=== PATIENT | female | born 1955 | race Caucasian/White ===

== ENCOUNTER 2018-05-25 18:13 | Outpatient (REF) | payer BC, SELFPAY ==
[2018-05-25 21:08] LABS: HCT 39.2 % (36.0-46.0); HGB 13.2 g/dL (12.0-15.5); Mean Corp. HGB Concentration 33.7 g/dL (32.0-36.0); Mean Corpuscular Hemoglobin 31.4 pg (27.0-33.0); Mean Corpuscular Volume 93.3 fL (80-95); Mean Platelet Volume 11.6 fL (8.0-11.0); Platelet Count 287 x1000/uL (130-400); RBC Distribution Width 13.7 % (11.7-14.6); White Blood Cell Count 7.92 k/cumm (4.4-10.8)
[2018-05-25 21:36] LABS: Cholesterol 199 mg/dL (50-200); HDL Cholesterol 73 mg/dL (40-60); LDL CHOLESTEROL 113 mg/dL (<100); Triglyceride 55 mg/dL (30-150)
[2018-05-25 21:49] LABS: ESR 24 MM/HR (0-30)
[2018-05-25 21:51] LABS: C-Reactive Protein 0.31 mg/dL (0.0-0.3)
[2018-05-29 10:38] LABS: Cyclic Citrullinated Peptide <2.5 U/mL (<5.0)
== END 2018-05-25 18:33 ==
LOC: NCHCN 18:13
PROVIDERS: PCP Internal Medicine; Visit Provider Internal Medicine
DX: M25.541 Pain in joints of right hand (principal); M25.542 Pain in joints of left hand; Z00.00 Encounter for general adult medical examination without abnormal findings; Z13.220 Encounter for screening for lipoid disorders
CPT/HCPCS: 80061; 83721; 85027; 85652; 86200; 86140

== ENCOUNTER 2018-10-23 06:29 | Day surgery (SDC) | payer BC, SELFPAY ==
--- NOTE | 2018-10-19 16:06 | NUR.NOTE ---
Spoke with patient on the phone approximately 1520 in the afternoon, when asked is she has had any recent chest pain or pressure patient states after pausing Well, yes and no, I do but I think its related to my gerd. When asked what she was doing at the time she experienced the chest pain she states I don't know. I can't even tell you, I just remember thinking to myself I need to tell Dr. Yap about this. Pt expressed concern about being awake during cataract procedure due to history of being awake for a previous carpal tunnel surgery in 1977 when he cut the medial nerve. She states I just can't be awake. I told pt I would ask if an Anesthesia provider would be able to give her a call for two reasons: one, to assess her chest pain, and two to address her anxiety related to being awake for surgery. Note:
--- NOTE | 2018-10-22 19:05 | POEE_ITS ---
History of Present Illness Chief Complaint: Progressive decreased vision, right eye Narrative: The patient is a 63-year old lady with history of progressive decreased vision in both eyes at both distance and near. She notes a starburst effect around lights at night. She can no longer drive at night due to glare from headlights. On examination she was noted to have moderate bilateral nuclear cataracts with best corrected vision of 20/30 in each eye, but with significant glare disability. The option of cataract surgery was offered to the patient and she felt she was symptomatically at that she wished to proceed. NOTE: The Chief Complaint, HPI, Past Medical History, Past Surgical History, Family History, Social History, Medications, and complete Ophthalmic Exam with detailed Assessment and Plan have already been documented in the patient's outpatient ophthalmic record and are not covered again in detail here. PFSH Medical History Asthma, intermittent (Acute) Back pain (Acute) Depression with anxiety (Acute) Hearing loss in right ear (Acute) Intermittent palpitations (Acute) Pain in joints of left hand (Acute) Pain in joints of right hand (Acute) Strain of thoracic back region (Acute) Trigger finger of left thumb (Acute) Trigger finger, right index finger (Acute) Alcohol abuse (Chronic) Cataract (Chronic) Depression (Chronic) GERD (gastroesophageal reflux disease) (Chronic) Hypertension (Chronic) Osteoporosis (Chronic) Diabetes mellitus type 1 Surgical History History of carpal tunnel release (Acute) History of surgical removal of pilonidal cyst (Acute) History of section (Chronic) Family History Sister Personal history of malignant neoplasm Mother No problems noted. Father No problems noted. Sister No problems noted. Social History Smoking/Tobacco Use Status: Former Tobacco Use Alcohol Intake: former Drug use: Never Do you feel safe at home: Yes Do you feel safe in your relationship?: Yes Meds Home Medications Medication Instructions Recorded Confirmed Type acetaminophen [Acetaminophen Extra 1,000 mg PO .EVERY 8 HRS PRN 10/19/18 10/19/18 History Strength] albuterol sulfate [ProAir HFA] 1 INHALATION PRN PRN 10/19/18 History alendronate 70 mg PO QWEEK 10/19/18 10/19/18 History calcium carbonate 600 mg PO BID 10/19/18 10/19/18 History fluticasone propion-salmeterol 1 puff INHALATION BID 10/19/18 10/19/18 History [Advair Diskus] glucagon (human recombinant) PRN 10/19/18 History [Glucagon Emergency Kit (human)] ibuprofen 200 mg PO BID PRN 10/19/18 10/19/18 History insulin lispro [Humalog U-100 15 - 30 unit SUBCUT DAILY 10/19/18 10/19/18 History Insulin] lisinopril 20 mg PO DAILY 10/19/18 10/19/18 History magnesium 250 mg PO DAILY 10/19/18 10/19/18 History multivitamin [Multiple Vitamins] 1 tab PO DAILY 10/19/18 10/19/18 History Allergies Allergy/AdvReac Type Severity Reaction Status Date / Time naproxen Allergy Mild Unverified 05/30/17 20:33 Penicillins Allergy Unverified 05/30/17 20:33 prochlorperazine Allergy Unverified 05/30/17 20:33 Exam OCULAR EXAM:: Most recent ocular examination is significant for best corrected vision of 20/30 in each eye. Intraocular pressure is 14 OD, 15 OS. Extraocular motility is normal. Pupils equal, round, and reactive without afferent pupillary defect slit-lamp examination is significant for pupils dilating to 5.5 mm OU. 1+ nuclear cataract OU. Dilated funduscopic examination shows disc cupping of 0.4 OU with good color. The optic nerves have good perfusion and normal color. The retinal vasculature is normal without significant tortuosity or abnormality. The maculas are normal in appearance with normal contour and foveal reflex appropriate for age. The peripheral retina and vitreous are normal. BRIGHTNESS ACUITY TESTING (BAT):: Brightness acuity testing of the right eye office is 20/30. Low is 20/40. Medium is 20/50. On the high setting is 20/100. Assessment and Plan (1) Nuclear sclerotic cataract of right eye: Current visit: No Status: Acute Assessment: Visually significant cataract, right eye. Plan: Cataract extraction with intraocular lens implantation, right eye Note: NOTE:: The details of the planned surgery, including the risks, indica tions,limitations,expectations,outcome and possible complications were explained to the patient. The patient understands the complications including, but not limited to: infection, hemorrhage, posterior dislocation of the lens or nuclear fragments which may require the intervention of a vitreoretinal surgeon, possible loss of the eye, or from anesthetic complications. The patient has been made aware of the option of not having surgery, that vision following surgery may not be equal to that prior to surgery, and that the planned surgery may not achieve the intended results. Following this discussion, which the patient appeared to understand, the patient wishes to proceed with cataract surgery with lens implantation of the affected eye to improve and maximize vision.
[2018-10-23 06:54] VITALS: BP 139/66; PULSE 74; RESP 16; TEMP 36.6; O2SAT 100
[2018-10-23] MEDS: Tropicam./Phenyleph. (1/2.5%) 5 ML BTL OD ×3 (07:07→07:17)
[2018-10-23] MEDS: Tetracaine 0.5% 4 ML BTL OD ×4 (07:07→07:40)
[2018-10-23] MEDS: Balanced Salt Soln.-PLUS 500 ML BAG (07:40)
[2018-10-23] MEDS: Lidocaine 2% Jelly 6 ML SYR (07:40)
[2018-10-23] MEDS: Povidone-Iodine Ophth 30 ML BTL (07:40)
[2018-10-23] MEDS: Lidocaine 1% Pres-Free 5 ML VIAL (07:40)
[2018-10-23] MEDS: Duovisc Viscoelastic System EACH 1 EACH (07:40)
--- NOTE | 2018-10-23 08:02 | W.PM.DSUDISC ---
Discharge Plan Disposition Patient Disposition: HOME Condition: Stable Discharge Details Attending Provider: Humble Thrasher Primary Care Provider: Mitchell Yap Home Meds and New Rx's Prescriptions: No Action multivitamin [Multiple Vitamins] Tablet 1 tab PO DAILY RF: 0 ibuprofen 200 mg Capsule 200 mg PO BID PRNRF: 0 lisinopril 20 mg Tablet 20 mg PO DAILY RF: 0 alendronate 70 mg Tablet 70 mg PO QWEEK RF: 0 calcium carbonate 600 mg calcium (1,500 mg) Tablet 600 mg PO BID RF: 0 Glucagon Emergency Kit (human) 1 mg Recon Soln PRN (Reason: severe hypoglycemia) RF: 0 Humalog U-100 Insulin 100 unit/mL Solution 15 - 30 unit SUBCUT DAILY RF: 0 fluticasone propion-salmeterol [Advair Diskus] 100-50 mcg/dose Blister With Device 1 puff INHALATION BID RF: 0 albuterol sulfate [ProAir HFA] 90 mcg/actuation Hfa Aerosol Inhaler 1 Inhalation PRN PRNRF: 0 acetaminophen [Acetaminophen Extra Strength] 500 mg Tablet 1,000 mg PO .EVERY 8 HRS PRNRF: 0 magnesium 250 mg Tablet 250 mg PO DAILY RF: 0 Discharge Instructions Stand Alone Forms: Post-op Topical Cataract, Rosemarie Rick (DSU) DS: Diagnosis Discharge Diagnosis (1) Nuclear sclerotic cataract of right eye: Status: Resolved (2) Status post cataract extraction and insertion of intraocular lens of right eye: Status: Chronic
--- NOTE | 2018-10-23 08:03 | W.PM.OP ---
Date of service: 10/23/18 Time of Service: 08:04 Operative Note PRE-OP DIAGNOSIS: Cataract, right eye PROCEDURE: Cataract extraction using phacoemulsification with intraocular lens implant, right eye SURGEON: Humble Thrasher ANESTHESIA: MAC and local (sub-tenon's anesthetic infiltration) ESTIMATED BLOOD LOSS: 0 PATHOLOGY: none sent COMPLICATIONS: None Patient was transported to: same day Patient's condition: stable Implants: [employer] / [employer] Tecnis ZCB00 intraocular lens Indications: Progressive decreased vision due to cataract, right eye Procedure Description: CATARACT SURGERY OPERATIVE REPORT PREOPERATIVE DIAGNOSIS: Nuclear cataract, right eye POSTOPERATIVE DIAGNOSIS: Same OPERATION: Cataract extraction using phacoemulsification with posterior chamber intraocular lens implant, right eye. IOL: IOL Agency Sales Development Associate/Model: J&J Vision / UZAIR Tecnis ZCB00 IOL Power: + 26.0 diopters IOL Serial Number: [id number] Optic Diameter: 6.0mm Haptic/Overall Diameter: 13.0mm PHACO INFO: Jamil Indigeo Virtusurion Vision System with OZil and Active Fluidics Cumulative Dispersed Energy (CDE): 6.45 seconds SURGEON: Humble Thrasher MD, UZMA ANESTHESIA: Monitored Anesthesia Care (MAC), with local sub-tenon's anesthetic infiltration COMPLICATIONS: None SPECIMENS: None INDICATIONS FOR PROCEDURE: The patient is a 63-year-old lady with history of diminished visual acuity in both eyes secondary to the development of bilateral nuclear cataracts. She was significantly symptomatic that she desires cataract surgery and attempt to improve and maximize her vision. PROCEDURE: The correct surgical eye was identified and marked as the right eye and the pupil was dilated in the preoperative area using mydriatics and cycloplegics. The dilated pupil size was 6.5 mm. Oral sedation was administered in the form of an Imprimis MKO Melt (midazolam 3mg/ketamine 25mg/ondansetron 2mg). The patient was brought to the operating room where cardiopulmonary monitoring was instituted and surgical time-out was performed, confirming the correct operative eye and IOL power. Topical anesthesia was administered and ophthalmic povidone-iodine 5% was instilled into the conjunctival fornices. Lidocaine gel was applied to the cornea and the elizabeth-ocular area was prepped with Betadine 10% solution and draped in the usual sterile fashion for intraocular surgery, including an aperture drape. A Tegaderm transparent film dressing was cut in half and used to cover the lashes and lid margins. Care was taken to sequester the lashes and lid margins under the Tegaderm dressing. A lid speculum was placed between the lids of the operative eye and the Zurdo-Bel operating microscope was maneuvered into position. Jacoby scissors were then used to make a conjunctival buttonhole approximately 6mm posterior to the limbus in the inferonasal quadrant. Blunt dissection was carried out to expose bare sclera, and a blunt-tipped sub-tenon?s anesthesia cannula was introduced and passed posteriorly along the globe where non-preserved plain lidocaine was injected into posterior sub-Tenon?s space. A sideport knife was used to make a paracentesis port inferiortemporally, and the anterior chamber was filled with Viscoat. A 2.4mm keratome knife was used to create a half-thickness groove at the limbus and then to construct a three-plane near-clear corneal tunnel extending 2.0mm into clear cornea in the superiortemporal position. . A flap was raised on the anterior capsule and capsulorhexis forceps were used to complete a continuous curvilinear capsulorhexis of 5.0 mm. Balanced salt solution was then used to perform cortical cleaving hydrodissection and nuclear hydrodelineation until the lens could be freely rotated within the capsular bag. The lens nucleus was then disassembled and removed within the capsular bag and iris plane using phacoemulsification. Residual cortical material was removed using the I/A handpiece. The posterior capsule was carefully polished to remove as much residual lens epithelial cells as safely possible. The capsular bag was then inflated and the anterior chamber deepened with Provisc. The lens implant described above was inserted into the capsular bag using the UZAIR [place] Injector. A Kuglen hook was used to dial the IOL into position. Residual viscoelastic was then removed first from posterior to the IOL, then from the anterior chamber using the I/A handpiece. The lens implant was noted to center nicely within the capsular bag. The incisions were stromally hydrated, and the anterior chamber was reformed using BSS. Then 0.4cc of moxifloxacin 1.5mg/ml were injected into the capsular bag and anterior chamber. The incisions were checked with a Weck spear and found to be secure. Several drops of ophthalmic povidone-iodine 5% were then applied to the eye followed by two drops of Imprimis combination gatifloxacin/dexamethasone solution. The drapes were removed and a clear plastic protective eye shield was placed over the eye. The patient was then returned to Same Day Surgery in stable condition.
--- NOTE | 2018-10-23 08:06 | ROE_ITS ---
Date of service: 10/23/18 Time of Service: 08:04 Operative Note PRE-OP DIAGNOSIS: Cataract, right eye PROCEDURE: Cataract extraction using phacoemulsification with intraocular lens implant, right eye SURGEON: Humble Thrasher ANESTHESIA: MAC and local (sub-tenon's anesthetic infiltration) ESTIMATED BLOOD LOSS: 0 PATHOLOGY: none sent COMPLICATIONS: None Patient was transported to: same day Patient's condition: stable Implants: Osman [employer] Os[employer] Vision / [employer] Opt[employer] Tecnis ZCB00 intraocular lens Indications: Progressive decreased vision due to cataract, right eye Procedure Description: CATARACT SURGERY OPERATIVE REPORT PREOPERATIVE DIAGNOSIS: Nuclear cataract, right eye POSTOPERATIVE DIAGNOSIS: Same OPERATION: Cataract extraction using phacoemulsification with posterior chamber intraocular lens implant, right eye. IOL: IOL Media Relations Associate/Model: J&J Vision / UZAIR Tecnis ZCB00 IOL Power: + 26.0 diopters IOL Serial Number: [id number] Optic Diameter: 6.0mm Haptic/Overall Diameter: 13.0mm PHACO INFO: Jamil ePod Solarurion Vision System with OZil and Active Fluidics Cumulative Dispersed Energy (CDE): 6.45 seconds SURGEON: Humble Thrasher MD, UZMA ANESTHESIA: Monitored Anesthesia Care (MAC), with local sub-tenon's anesthetic infiltration COMPLICATIONS: None SPECIMENS: None INDICATIONS FOR PROCEDURE: The patient is a 63-year-old lady with history of diminished visual acuity in both eyes secondary to the development of bilateral nuclear cataracts. She was significantly symptomatic that she desires cataract surgery and attempt to improve and maximize her vision. PROCEDURE: The correct surgical eye was identified and marked as the right eye and the pupil was dilated in the preoperative area using mydriatics and cycloplegics. The dilated pupil size was 6.5 mm. Oral sedation was administered in the form of an Imprimis MKO Melt (midazolam 3mg/ketamine 25mg/ondansetron 2mg). The patient was brought to the operating room where cardiopulmonary monitoring was instituted and surgical time-out was performed, confirming the correct operative eye and IOL power. Topical anesthesia was administered and ophthalmic povidone-iodine 5% was instilled into the conjunctival fornices. Lidocaine gel was applied to the cornea and the elizabeth-ocular area was prepped with Betadine 10% solution and draped in the usual sterile fashion for intraocular surgery, including an aperture drape. A Tegaderm transparent film dressing was cut in half and used to cover the lashes and lid margins. Care was taken to sequester the lashes and lid margins under the Tegaderm dressing. A lid speculum was placed between the lids of the operative eye and the Zurdo-Bel operating microscope was [place] uvered into position. Jacoby scissors were then used to make a conjunctival buttonhole approximately 6mm posterior to the limbus in the inferonasal quadrant. Blunt dissection was carried out to expose bare sclera, and a blunt-tipped sub-tenon?s anesthesia cannula was introduced and passed posteriorly along the globe where non- preserved plain lidocaine was injected into posterior sub-Tenon?s space. A sideport knife was used to make a paracentesis port inferiortemporally, and the anterior chamber was filled with Viscoat. A 2.4mm keratome knife was used to create a half-thickness groove at the limbus and then to construct a three-plane near-clear corneal tunnel extending 2.0mm into clear cornea in the superiortemporal position. . A flap was raised on the anterior capsule and capsulorhexis forceps were used to complete a continuous curvilinear capsulorhexis of 5.0 mm. Balanced salt solution was then used to perform cortical cleaving hydrodissection and nuclear hydrodelineation until the lens could be freely rotated within the capsular bag. The lens nucleus was then disassembled and removed within the capsular bag and iris plane using phacoemulsification. Residual cortical material was removed using the I/A handpiece. The posterior capsule was carefully polished to remove as much residual lens epithelial cells as safely possible. The capsular bag was then inflated and the anterior chamber deepened with Provisc. The lens implant described above was inserted into the capsular bag using the UZAIR [place] Injector. A Kuglen hook was used to dial the IOL into position. Residual viscoelastic was then removed first from posterior to the IOL, then from the anterior chamber using the I/A handpiece. The lens implant was noted to center nicely within the capsular bag. The incisions were stromally hydrated, and the anterior chamber was reformed using BSS. Then 0.4cc of moxifloxacin 1.5mg/ml were injected into the capsular bag and anterior chamber. The incisions were checked with a Weck spear and found to be secure. Several drops of ophthalmic povidone-iodine 5% were then applied to the eye followed by two drops of Imprimis combination gatifloxacin/dexamethasone solution. The drapes were removed and a clear plastic protective eye shield was placed over the eye. The patient was then returned to Same Day Surgery in stable condition.
[2018-10-23 08:35] VITALS: BP 123/68; PULSE 75; RESP 16; TEMP 37; O2SAT 98
== END 2018-10-23 08:40 | disposition home or self-care (01) ==
PROVIDERS: PCP Internal Medicine; Visit Provider Ophthalmology
PROC: (CPT 66984; principal; 2018-10-23 07:30)
DX: H25.11 Age-related nuclear cataract, right eye (principal); E11.9 Type 2 diabetes mellitus without complications; Z79.4 Long term (current) use of insulin; K21.9 Gastro-esophageal reflux disease without esophagitis; I10 Essential (primary) hypertension
CPT/HCPCS: 66984; V2632

== ENCOUNTER 2018-11-06 06:31 | Day surgery (SDC) | payer BC, SELFPAY ==
--- NOTE | 2018-11-05 17:18 | POEE_ITS ---
History of Present Illness Chief Complaint: Progressive decreased vision, left eye Narrative: The patient is a 63-year-old lady who presented with complaints of progressive decreased vision in both eyes at both distance and near. She notes significant difficulty with glare from headlights at night. On examination she was noted to have bilateral nuclear cataract, and underwent cataract surgery OD on 10/23/2018. Postoperatively she has regained uncorrected visual acuity of better than 20/20. She now presents for cataract surgery in the left eye. NOTE: The Chief Complaint, HPI, Past Medical History, Past Surgical History, Family History, Social History, Medications, and complete Ophthalmic Exam with detailed Assessment and Plan have already been documented in the patient's outpatient ophthalmic record and are not covered again in detail here. [facility] Medical History Asthma, intermittent (Acute) Back pain (Acute) Depression with anxiety (Acute) Hearing loss in right ear (Acute) Intermittent palpitations (Acute) Pain in joints of left hand (Acute) Pain in joints of right hand (Acute) Strain of thoracic back region (Acute) Trigger finger of left thumb (Acute) Trigger finger, right index finger (Acute) Alcohol abuse (Chronic) Cataract (Chronic) Depression (Chronic) GERD (gastroesophageal reflux disease) (Chronic) Hypertension (Chronic) Osteoporosis (Chronic) Diabetes mellitus type 1 Surgical History Status post cataract extraction and insertion of intraocular lens of right eye (Chronic 10/23/18) History of carpal tunnel release (Acute) History of surgical removal of pilonidal cyst (Acute) History of section (Chronic) Family History Sister Personal history of malignant neoplasm Mother No problems noted. Father No problems noted. Sister No problems noted. Social History Smoking/Tobacco Use Status: Former Tobacco Use Quit Date: 06/27/77 Alcohol Intake: former Drug use: Never Do you feel safe at home: Yes Do you feel safe in your relationship?: Yes Meds Home Medications Medication Instructions Recorded Confirmed Type acetaminophen [Acetaminophen Extra 1,000 mg PO .EVERY 8 HRS PRN 10/19/18 10/23/18 History Strength] albuterol sulfate [ProAir HFA] 1 INHALATION PRN PRN 10/19/18 History alendronate 70 mg PO QWEEK 10/19/18 10/23/18 History calcium carbonate 600 mg PO BID 10/19/18 10/23/18 History fluticasone propion-salmeterol 1 puff INHALATION BID 10/19/18 10/23/18 History [Advair Diskus] glucagon (human recombinant) PRN 10/19/18 History [Glucagon Emergency Kit (human)] ibuprofen 200 mg PO BID PRN 10/19/18 10/19/18 History insulin lispro [Humalog U-100 15 - 30 unit SUBCUT DAILY 10/19/18 10/23/18 History Insulin] lisinopril 20 mg PO DAILY 10/19/18 10/23/18 History magnesium 250 mg PO DAILY 10/19/18 10/23/18 History multivitamin [Multiple Vitamins] 1 tab PO DAILY 10/19/18 10/23/18 History Allergies Allergy/AdvReac Type Severity Reaction Status Date / Time naproxen Allergy Mild Unverified 10/23/18 06:45 Penicillins Allergy Unverified 10/23/18 06:45 prochlorperazine Allergy Unverified 10/23/18 06:45 Exam OCULAR EXAM:: Most recent ocular examination is significant for uncorrected visual acuity of 20/15 in the right eye, corrected visual acuity of 20/30 in the left eye. Intraocular pressure is 16 OD, 15 OS. Extraocular motility is normal pupils equal, round, and reactive without afferent pupillary defect slit lamp examination is significant for pupils dilating to 5.5 mm OU. Well-positioned PCIOL OD with clear posterior capsule. 1+ nuclear cataract OS. Dilated funduscopic examination shows disc cupping of 0.4 OU with good color. The optic nerves have good perfusion and normal color. The retinal vasculature is normal without significant tortuosity or abnormality. The maculas are normal in appearance with normal contour and foveal reflex appropriate for age. The peripheral retina and vitreous are normal. BRIGHTNESS ACUITY TESTING (BAT):: Brightness acuity testing of the left eye office is 20/30. Low is 20/40. Medium is 20/50. On the high setting is 20/60. Assessment and Plan (1) Nuclear sclerotic cataract of left eye: Current visit: No Status: Acute Assessment: Visually significant cataract, left eye. Plan: Cataract extraction with intraocular lens implantation, left eye Note: NOTE:: The details of the planned surgery, including the risks, indications,limitations,expectations,outcome and possible complications were explained to the patient. The patient understands the complications including, but not limited to: infection, hemorrhage, posterior dislocation of the lens or nuclear fragments which may require the intervention of a vitreoretinal surgeon, possible loss of the eye, or from anesthetic complications. The patient has been made aware of the option of not having surgery, that vision following surgery may not be equal to that prior to surgery, and that the planned surgery may not achieve the intended results. Following this discussion, which the patient appeared to understand, the patient wishes to proceed with cataract surgery with lens implantation of the affected eye to improve and maximize vision.
[2018-11-06 06:48] VITALS: BP 106/53; PULSE 74; RESP 16; TEMP 36.1; O2SAT 100
[2018-11-06] MEDS: Tetracaine 0.5% 4 ML BTL OS ×4 (07:00→07:31)
[2018-11-06] MEDS: Tropicam./Phenyleph. (1/2.5%) 5 ML BTL OS ×3 (07:01→07:12)
--- NOTE | 2018-11-06 07:16 | W.PM.DSUDISC ---
Discharge Plan Disposition Patient Disposition: HOME Condition: Stable Discharge Details Attending Provider: Humble Thrasher Primary Care Provider: Mitchell Yap Home Meds and New Rx's Prescriptions: No Action multivitamin [Multiple Vitamins] Tablet 1 tab PO DAILY RF: 0 ibuprofen 200 mg Capsule 200 mg PO BID PRNRF: 0 lisinopril 20 mg Tablet 20 mg PO DAILY RF: 0 alendronate 70 mg Tablet 70 mg PO QWEEK RF: 0 calcium carbonate 600 mg calcium (1,500 mg) Tablet 600 mg PO BID RF: 0 Glucagon Emergency Kit (human) 1 mg Recon Soln PRN (Reason: severe hypoglycemia) RF: 0 Humalog U-100 Insulin 100 unit/mL Solution 15 - 30 unit SUBCUT DAILY RF: 0 fluticasone propion-salmeterol [Advair Diskus] 100-50 mcg/dose Blister With Device 1 puff INHALATION BID RF: 0 albuterol sulfate [ProAir HFA] 90 mcg/actuation Hfa Aerosol Inhaler 1 Inhalation PRN PRNRF: 0 acetaminophen [Acetaminophen Extra Strength] 500 mg Tablet 1,000 mg PO .EVERY 8 HRS PRNRF: 0 magnesium 250 mg Tablet 250 mg PO DAILY RF: 0 Discharge Instructions Stand Alone Forms: Post-op Topical Cataract, Rosemarie Rick (DSU) DS: Diagnosis Discharge Diagnosis (1) Nuclear sclerotic cataract of left eye: Status: Resolved (2) Status post cataract extraction and insertion of intraocular lens of left eye: Status: Chronic
--- NOTE | 2018-11-06 07:17 | ROE_ITS ---
Date of service: 11/06/18 Time of Service: 08:02 Operative Note PRE-OP DIAGNOSIS: Cataract, left eye POST-OP DIAGNOSIS: same PROCEDURE: Cataract extraction using phacoemulsification with intraocular lens implant, left eye SURGEON: Humble Thrasher ANESTHESIA: MAC and local (sub-tenon's anesthetic infiltration) PATHOLOGY: none sent COMPLICATIONS: None Patient was transported to: same day Patient's condition: stable Implants: [employer] / [employer] Tecnis [id number] Indications: Progressive decreased vision due to cataract, left eye Procedure Description: CATARACT SURGERY OPERATIVE REPORT PREOPERATIVE DIAGNOSIS: Nuclear cataract, left eye POSTOPERATIVE DIAGNOSIS: Same OPERATION: Cataract extraction using phacoemulsification with posterior chamber intraocular lens implant, left eye. IOL: IOL Treating Machine Operator/Model: [employer] / UZAIR Tecnis ZCB00 IOL Power: + 25.5 diopters IOL Serial Number: [id number] Optic Diameter: 6.0mm Haptic/Overall Diameter: 13.0mm PHACO INFO: Jamil BTIGurion Vision System with OZil and Active [employer]uidics Cumulative Dispersed Energy (CDE): 5.35 seconds SURGEON: Humble Thrasher MD, UZMA ANESTHESIA: Monitored Anesthesia Care (MAC), with local sub-tenon's anesthetic infiltration COMPLICATIONS: None SPECIMENS: None INDICATIONS FOR PROCEDURE: The patient is a 63-year-old lady with history of diminished visual acuity in both eyes secondary to the development of bilateral nuclear cataracts. She has already undergone cataract surgery in her right eye on 10/23/2018 and is doing well postoperatively. She now presents for cataract surgery in the left eye. PROCEDURE: The correct surgical eye was identified and marked as the left eye and the pupil was dilated in the preoperative area using mydriatics and cycloplegics. The dilated pupil size was 6.0 mm. Oral sedation was administered in the form of an Imprimis MKO Melt (midazolam 3mg/ketamine 25mg/ondansetron 2mg). The patient was brought to the operating room where cardiopulmonary monitoring was instituted and surgical time-out was performed, confirming the correct operative eye and IOL power. Topical anesthesia was administered and ophthalmic povidone-iodine 5% was instilled into the conjunctival fornices. Lidocaine gel was applied to the cornea and the elizabeth-ocular area was prepped with Betadine 10% solution and draped in the usual sterile fashion for intraocular surgery, including an aperture drape. A Tegaderm transparent film dressing was cut in half and used to cover the lashes and lid margins. Care was taken to sequester the lashes and lid margins under the Tegaderm dressing. A lid speculum was placed between the lids of the operative eye and the Zurdo-Bel operating microscope was maneuvered into position. Jacoby scissors were then used to make a conjunctival buttonhole approximately 6mm posterior to the limbus in the inferonasal quadrant. Blunt dissection was carried out to expose bare sclera, and a blunt-tipped sub-tenon?s anesthesia cannula was introduced and passed posteriorly along the globe where non- preserved plain lidocaine was injected into posterior sub-Tenon?s space. A sideport knife was used to make a paracentesis port superior/superiortemporal, and the anterior chamber was filled with Healon GV. A 2.4mm keratome knife was used to create a half-thickness groove at the limbus and then to construct a three-plane near-clear corneal tunnel extending 2.0mm into clear cornea in the temporal position. . A flap was raised on the anterior capsule and capsulorhexis forceps were used to complete a continuous curvilinear capsulorhexis of 4.8 mm. Balanced salt solution was then used to perform cortical cleaving hydrodissectio n and nuclear hydrodelineation until the lens could be freely rotated within the capsular bag. The lens nucleus was then disassembled and removed within the capsular bag and iris plane using phacoemulsification. Residual cortical material was removed using the 45-degree angled silicone I/A tip with 0.3mm port. The posterior capsule was carefully polished to remove as much residual lens epithelial cells as safely possible. The capsular bag was then inflated and the anterior chamber deepened with viscoelastic. The lens implant described above was inserted into the capsular bag using the UZAIR Pacolet Injector. A Kuglen hook was used to dial the IOL into position. Residual viscoelastic was then removed first from posterior to the IOL, then from the anterior chamber using the I/A handpiece. The lens implant was noted to center nicely within the capsular bag. The incisions were stromally hydrated, and the anterior chamber was reformed using BSS. Then 0.4cc of moxifloxacin 1.5mg/ml were injected into the capsular bag and anterior chamber. The incisions were checked with a Weck spear and found to be secure. Several drops of ophthalmic povidone-iodine 5% were then applied to the eye followed by two drops of Imprimis combination prednisolone/gatifloxacin/bromfenac solution. The drapes were removed and a clear plastic protective eye shield was placed over the eye. The patient was then returned to [facility] in stable condition.
[2018-11-06] MEDS: Midazolam/Ketamine/Ondansetron (3/25/2MG) 1 TAB 1 EACH SL (07:25)
[2018-11-06] MEDS: Lidocaine 2% Jelly 6 ML SYR (07:31)
[2018-11-06] MEDS: Povidone-Iodine Ophth 30 ML BTL ×2 (07:31→07:57)
[2018-11-06] MEDS: Balanced Salt Soln.-PLUS 500 ML BAG (07:39)
[2018-11-06] MEDS: Lidocaine 1% Pres-Free 5 ML VIAL (07:39)
[2018-11-06 08:45] VITALS: BP 120/75; PULSE 71; RESP 16; TEMP 37; O2SAT 100
== END 2018-11-06 08:50 | disposition home or self-care (01) ==
PROVIDERS: PCP Internal Medicine; Visit Provider Ophthalmology
PROC: (CPT 66984; principal; 2018-11-06 07:30)
DX: H25.12 Age-related nuclear cataract, left eye (principal); Z98.41 Cataract extraction status, right eye; Z96.1 Presence of intraocular lens; E11.9 Type 2 diabetes mellitus without complications; Z79.4 Long term (current) use of insulin; K21.9 Gastro-esophageal reflux disease without esophagitis; I10 Essential (primary) hypertension
CPT/HCPCS: 66984; V2632

== ENCOUNTER 2019-02-02 02:22 | Outpatient (CLI) | payer BC, SELFPAY ==
--- NOTE | 2019-02-02 10:13 | DI.MAMMO_ITS ---
SYMPTOM/DIAGNOSIS: SCREENING, PREVENTIVE HEALTH, Z00.00 MAMMOGRAMS: Mammograms were interpreted according to the usual protocol including computer analysis with CAD system, tomosynthesis and C view imaging. The breasts are of moderate density with fairly symmetrical distribution of fibroglandular tissue. No dominant mass or clumped microcalcification is identified in either breast. The current examination is compared with previous examinations including 03/2017 and there has been no gross interval change in appearance in comparison with the previous studies. CONCLUSION: No specific evidence of malignancy at this time. Routine screening examinations are suggested at yearly intervals due to the family history of breast carcinoma. Category 1. Breast density, Category B. MQSA ASSESSMENT OF FINDINGS: Negative. Category 1. Patient will receive a letter notifying them of these results. BI-RADS category B. There are scattered areas of fibroglandular density.
--- NOTE | 2019-02-02 10:39 | DI.RAD_ITS ---
SYMPTOMS/DIAGNOSIS: THORACIC BACK PAIN, M54.9 THORACIC SPINE: Three views were obtained. There is loss of the intervertebral disc spaces throughout the thoracic region. There is a mild anterior compression fracture of what appears to be the T 9 vertebral body. No other compression fracture seen. Comparison with previous shoulder films of 11/10/17 shows this fracture was present at that time. No acute fracture seen. Multi-level endplate hypertrophic changes noted throughout the thoracic spine. CONCLUSION: Thoracic spine DJD and old T 9 compression fracture.
== END 2019-02-02 02:42 ==
PROVIDERS: PCP Internal Medicine; Visit Provider Specialist/Technologist Athletic Trainer
DX: M51.34 Other intervertebral disc degeneration, thoracic region (principal); Z12.31 Encounter for screening mammogram for malignant neoplasm of breast
CPT/HCPCS: 77063; 77067; 72072

== ENCOUNTER 2019-03-05 15:04 | Outpatient (REF) | payer BC, SELFPAY ==
[2019-03-05 22:22] LABS: Bacteria Negative HPF (Negative); Crystals Moderate Amorphous HPF (Negative); Epithelial Cells Negative HPF (Negative); Mucus Negative (Negative); Other Cells Negative (Negative); RBC Negative (0-2); WBC 0-2 HPF (0-5)
[2019-03-05 22:23] LABS: C & S Indicated? No; Casts Negative LPF (Negative)
== END 2019-03-05 15:24 ==
LOC: NCHCN 15:04
PROVIDERS: PCP Internal Medicine; Visit Provider Specialist/Technologist Athletic Trainer
DX: R35.0 Frequency of micturition (principal)
CPT/HCPCS: 81015

== ENCOUNTER 2019-03-09 01:28 | Outpatient (CLI) | payer BC, SELFPAY ==
--- NOTE | 2019-03-09 10:37 | DI.US_ITS ---
SYMPTOM/DIAGNOSIS: FLANK PAIN R10.9 RENAL ULTRASOUND: The kidneys are normal in size and echogenicity and show normal parenchymal thickness. There is no evidence of hydronephrosis, stone or perinephric collection. The pre-void bladder volume measures 101 cc. Both ureteral jets were visualized. No bladder mass or bladder calculi are seen. There is a 6 cc post void residual. IMPRESSION: Negative renal ultrasound.
== END 2019-03-09 01:48 ==
PROVIDERS: PCP Internal Medicine; Visit Provider Specialist/Technologist Athletic Trainer
DX: R10.84 Generalized abdominal pain (principal)
CPT/HCPCS: 76770

== ENCOUNTER 2019-05-15 01:41 | Outpatient (RCR) | payer BC, SELFPAY ==
[2019-05-15] MEDS: Normal Saline Flush 10 ML SYR IVP (13:08)
== END 2019-05-26 23:59 | disposition home or self-care (01) ==
LOC: INF 01:41
PROVIDERS: PCP Internal Medicine; Visit Provider Internal Medicine
DX: M81.0 Age-related osteoporosis without current pathological fracture (principal)
CPT/HCPCS: 96365; J3489

== ENCOUNTER 2019-09-03 00:44 | Outpatient (CLI) | payer MEDICAID, SELFPAY ==
--- NOTE | 2019-09-03 11:10 | DI.CT_ITS ---
EXAM: CT ABDOMEN PELVIS WO CLINICAL HISTORY: R/O STONES, FLANK PAIN, CALCIUM OXALATE CRYSTALS PRESENT IN URINE, R10.9, R82.998. TECHNIQUE: Imaging Protocol: Axial computed tomography images with coronal and sagittal reformatted images were created and reviewed. COMPARISON: No exams were available for comparison FINDINGS: ABDOMEN: Lung Bases: Normal where visualized. Liver: Normal density. No measurable mass. Gallbladder and biliary tract: No radiodense calculus or dilation. Pancreas: Normal density, no abnormal calcifications or inflammatory process. Spleen: Normal. Kidneys: Normal size, contour and axis. No radiodense stones or obstructive uropathy. No masses seen. Adrenal glands: No masses seen. Lymph nodes: Within normal limits. Abdominal Aorta: Abdominal portion non-dilated. Mild atherosclerosis. PELVIS: Bladder: Incompletely distended. No gross abnormality is identified. Bowel: No obstruction or bowel wall thickening. No evidence of an acute appendicitis. Peritoneal cavity: No ascites, collection or mesenteric inflammatory response. Reproductive organs: Within normal limits. Bones: Mild degenerative changes in the spine IMPRESSION: No evidence of nephrolithiasis or hydronephrosis. DATA REPOSITORY: All CT scans at this facility are submitted to the National Radiology Data Registry (NRDR) Dose Index Registry (DIR) with the [employer] (ACR). RADIATION OPTIMIZATION: All CT scans at this facility use at least one of these dose optimization te chniques: automated exposure control; mA and/or kV adjustment per patient size (includes targeted exa ms where dose is matched to clinical indication); or iterative reconstruction.
== END 2019-09-03 01:04 ==
PROVIDERS: PCP Internal Medicine; Visit Provider Urology
DX: R10.31 Right lower quadrant pain (principal); R82.998 Other abnormal findings in urine
CPT/HCPCS: 74176

== ENCOUNTER 2019-09-27 09:53 | Outpatient (CLI) | payer MEDICAID, SELFPAY ==
[2019-09-30 02:51] LABS: SARS-CoV-2 RNA Undetected (Undetected); SARS-CoV-2 Specimen Source Nasopharynx
== END 2019-09-27 10:13 ==
PROVIDERS: PCP Internal Medicine; Visit Provider Internal Medicine
DX: Z11.59 Encounter for screening for other viral diseases (principal)
CPT/HCPCS: U0003

== ENCOUNTER 2019-11-26 13:17 | Outpatient (REF) | payer MEDICAID, SELFPAY ==
[2019-11-26 20:38] LABS: HCT 38.8 % (36.0-46.0); HGB 12.7 g/dL (12.0-15.5); Mean Corp. HGB Concentration 32.7 g/dL (32.0-36.0); Mean Corpuscular Hemoglobin 30.3 pg (27.0-33.0); Mean Corpuscular Volume 92.6 fL (80-95); Mean Platelet Volume 11.1 fL (8.0-11.0); Platelet Count 295 x1000/uL (130-400); RBC 4.19 m/cumm (4.00-5.20); RBC Distribution Width 12.8 % (11.7-14.6); White Blood Cell Count 5.33 k/cumm (4.4-10.8)
[2019-11-26 21:45] LABS: ALT 35 U/L (14-59); AST 26 U/L (15-37); Albumin 3.5 g/dL (3.4-5.0); Alkaline Phosphatase 101 U/L (46-116); Anion Gap 4.3 mmol/L (3-11); BUN 21 mg/dL (7-18); Bilirubin, Total 0.3 mg/dL (0.2-1.0); CO2 30.7 mmol/L (21.0-32.0); CREATININE 0.92 mg/dL (0.55-1.02); Calcium 8.8 mg/dL (8.5-10.1); Chloride 106 mmol/L (98-107); Glucose 214 mg/dL (74-106); Potassium 4.5 mmol/L (3.5-5.1); Sodium 141 mmol/L (136-145); Total Protein 6.1 g/dL (6.4-8.2)
[2019-11-26 22:07] LABS: NT-proBNP 101 pg/mL (<300)
== END 2019-11-26 13:37 ==
LOC: NCHCN 13:17
PROVIDERS: PCP Internal Medicine; Visit Provider Family Medicine
DX: R06.02 Shortness of breath (principal)
CPT/HCPCS: 80053; 85027; 83880

== ENCOUNTER 2019-12-17 00:29 | Outpatient (CLI) | payer MEDICAID, SELFPAY ==
--- NOTE | 2019-12-17 08:00 | ETT_ITS ---
APPROVED REPORT Exam: Exercise Treadmill Patient Location: Out-Patient Room/Bed: Stress Nurse: Valeria Diaz RN BMI: 0.00 Baseline Rhythm: Sinus Rhythm Indications: Exertional dyspnea. Medical History Medical History: Diabetic ??? Insulin, HTN Cardiac Medications: Lisinopril. Aspirin. Magnesium. Advair. Humalog Insulin., Allergies: Penicillins. Naproxen. Compazine. Cardiac Risk Factors: HTN, Diabetes (insulin), FHX of CAD. Former smoker. Exercise History: Physically active Lung Sounds: Clear to auscultation Heart Sounds: Regular Stress Test Details Test: Exercise stress testing was performed using a Frank protocol. Rest Stress HR Resting HR Supine: 70 bpm Resting HR Standin bpm Max HR Achieved: 130 bpm Recovery HR: 94 bpm HR response to stress: Normal HR response to stress BP Resting BP Supine: 128/66 mmHg Resting BP Standin/62 mmHg Max BP: 170/56 mmHg Recovery BP: 130/62 mmHg BP response to stress: Normal blood pressure response to stress. ECG Resting ECG: Sinus Rhythm Stress ECG: Sinus Tachycardia ST Change: No significant ST segment changes Arrhythmia: None Recovery ECG: Sinus Rhythm Recovery ST Change: No siginificant ST segment changes Recovery Arrhythmia: None Clinical Reason for Termination: Fatigue Stress Symptoms: Leg Fatigue Exercise duration: 7 min30 sec Highest Stage Reached: Stage 3: 3.4 mph at 14% grade. Exercise capacity: 9.36 METs Functional Capacity: Above average capacity Stress ECG Conclusion 1. The patient exercised for 7 minutes 30 seconds (9 METS). Rate-pressure product was 22,000 2. There were no symptoms suggestive of ischemia during stress. Exercise was stopped due to leg fati lizeth. 3. The Sam Score ( 7) estimates an annual cardiovascular mortality of 0% and a five year survival of 95%. Using the Sam Score there is a low probability of any angiographic coronary disease.
== END 2019-12-17 00:49 ==
PROVIDERS: PCP Internal Medicine; Visit Provider Family Medicine
DX: R06.09 Other forms of dyspnea (principal); I10 Essential (primary) hypertension; E11.9 Type 2 diabetes mellitus without complications; Z79.4 Long term (current) use of insulin; Z87.891 Personal history of nicotine dependence; Z82.49 Family history of ischemic heart disease and other diseases of the circulatory system
CPT/HCPCS: 93017

== ENCOUNTER 2020-05-12 00:44 | Outpatient (RCR) | payer MEDICAID, SELFPAY ==
[2020-05-12] MEDS: Normal Saline Flush 10 ML SYR IVP (13:36)
== END 2020-05-26 23:59 | disposition home or self-care (01) ==
LOC: INF 00:44
PROVIDERS: PCP Internal Medicine; Visit Provider Internal Medicine
DX: M81.0 Age-related osteoporosis without current pathological fracture (principal)
CPT/HCPCS: 96365; J3489

== ENCOUNTER 2020-07-25 01:44 | Outpatient (CLI) | payer MEDICAID, SELFPAY ==
[2020-07-28 15:29] LABS: ANA Interpretation Negative (Negative)
[2020-07-29 16:15] LABS: Centromere Ab, IgG <0.2 U (<1.0 (Neg)); Scl 70 Antibodies, IgG <0.2 U
[2020-07-29 16:16] LABS: RNP Ab, IgG 1.7 Units (<20.0)
== END 2020-07-25 02:04 ==
PROVIDERS: PCP Internal Medicine; Visit Provider Internal Medicine
DX: I73.00 Raynaud's syndrome without gangrene (principal); R13.13 Dysphagia, pharyngeal phase; L98.8 Other specified disorders of the skin and subcutaneous tissue
CPT/HCPCS: 36415; 83520; 86038; 86235

== ENCOUNTER 2020-09-22 02:35 | Outpatient (CLI) | payer MEDICAID, SELFPAY ==
--- NOTE | 2020-09-22 09:39 | DI.RAD_ITS ---
EXAM: RF BARIUM SWALLOW CLINICAL HISTORY: DYSPHAGIA PHARYNGEAL PHASE,R13.13 TECHNIQUE: 2D and realtime digital imaging was performed. CONTRAST MATERIAL: Oral barium Oral water soluble contrast was administered. COMPARISON: CR XR thoracic spine complete from 02/02/2019 FINDINGS: ESOPHAGRAM: Performed both standing and recumbent. Swallowing appears grossly intact and there was no aspiration evident. No obvious hypertense upper e sophageal sphincter evident. No evidence of Zenker's diverticulum. There no obvious fixed lesions in the esophagus. The GE junction appears unremarkable. No evidence for hiatal hernia. No Schatzki ring demonstrated. No evidence of diverticulum in the distal esophag us. No prominent reflux demonstrated. No evidence of achalasia. Additional images of the stomach appeared unremarkable as does the duodenal sweep. IMPRESSION: No significant radiograph findings evident on this esophagram study. If clinically indicated further study with modified barium swallow performed with the [place] Free Classifiedsis t can be performed. Also given her symptoms one might consider thyroid ultrasound examination. RADIATION DOSE DELIVERED:
[2020-09-22] MEDS: Simethicone/Sod Bicarb/Cit Ac, 4 gram PACKET 1 PACKET PO (09:41)
[2020-09-22] MEDS: Barium Sulfate 60% W/V 355 ML BTL PO (09:41)
== END 2020-09-22 02:55 ==
PROVIDERS: PCP Internal Medicine; Visit Provider Internal Medicine
DX: R13.13 Dysphagia, pharyngeal phase (principal)
CPT/HCPCS: 74221; J3490

== ENCOUNTER 2020-11-19 07:48 | Outpatient (REF) | payer MEDICAID, SELFPAY | END 2020-11-19 07:49 | disposition home or self-care (01) | LOC: NCHCN 07:48 | PROVIDERS: PCP Internal Medicine; Visit Provider Family Medicine | DX: R30.0 Dysuria (principal) | CPT/HCPCS: 87086 ==

== ENCOUNTER 2020-12-15 18:33 | Outpatient (REF) | payer MEDICAID, SELFPAY | END 2020-12-15 18:34 | disposition home or self-care (01) | LOC: NCHCN 18:33 | PROVIDERS: PCP Internal Medicine; Visit Provider Family Medicine | DX: R30.0 Dysuria (principal); R32 Unspecified urinary incontinence | CPT/HCPCS: 87086 ==

== ENCOUNTER 2021-03-03 02:45 | Outpatient (CLI) | payer MEDICAID, SELFPAY ==
--- NOTE | 2021-03-03 | DI.MAMMO_ITS ---
Exam(s) MAMMO SCREENING EXAM: MAMMO SCREENING CLINICAL HISTORY: SCREENING, Z12.39 TECHNIQUE: Mammograms were interpreted according to the usual protocol including computer analysis w [employer] CAD system, tomosynthesis and C-view imaging. COMPARISON: 2013 through 2018 FINDINGS: The breasts are composed of scattered fibroglandular densities, Breast Density category B. No suspicious masses or suspicious microcalcifications are seen. No skin thickening or abnormal axillary lymph nodes are seen. There has been no significant change from prior exams. IMPRESSION: BI-RADS Category 1, Negative mammogram Yearly screening mammography is recommended. Breast Density - Category B, scattered fibroglandular densities. A negative radiographic report should not delay biopsy if a dominant or clinically suspicious mass is present. Up to ten percent of cancers are not identified on mammography. A negative report may reinforce clinical impression. Adenosis and dense breasts may obscure an underlying neoplasm. False positive reports average 6 to 10%. Patient will receive a letter notifying them of these results.
== END 2021-03-03 03:05 ==
PROVIDERS: PCP Internal Medicine; Visit Provider Internal Medicine
DX: Z12.31 Encounter for screening mammogram for malignant neoplasm of breast (principal)
CPT/HCPCS: 77063; 77067

== ENCOUNTER 2021-05-07 11:12 | Outpatient (REF) | payer MEDICAID, SELFPAY ==
[2021-05-08 06:36] LABS: Calculated LDL 67 mg/dL (<100); Cholesterol 147 mg/dL (<200); HDL Cholesterol 75 mg/dL (40-60); Triglyceride 28 mg/dL (<150)
[2021-05-11 10:04] LABS: Hepatitis C Ab w Rflx HCV PCR Negative (Negative)
== END 2021-05-07 11:13 | disposition home or self-care (01) ==
LOC: NCHCN 11:12
PROVIDERS: PCP Internal Medicine; Visit Provider Internal Medicine
DX: E10.9 Type 1 diabetes mellitus without complications (principal); Z11.59 Encounter for screening for other viral diseases
CPT/HCPCS: 80061; 86803

== ENCOUNTER 2021-07-08 01:40 | Outpatient (RCR) | payer MEDICAID, SELFPAY ==
[2021-07-08] MEDS: Normal Saline Flush 10 ML SYR IVP (14:13)
== END 2021-07-27 23:59 | disposition home or self-care (01) ==
LOC: INF 01:40
PROVIDERS: PCP Internal Medicine; Visit Provider Internal Medicine
DX: M81.0 Age-related osteoporosis without current pathological fracture (principal)
CPT/HCPCS: 96365; J3489

== ENCOUNTER 2021-07-08 03:23 | Outpatient (CLI) | payer MEDICAID, SELFPAY ==
[2021-07-08 14:13] LABS: Hemoglobin A1C 7.4 % (<5.7)
[2021-07-08 14:49] LABS: COMMENT (LAB VIEW ONLY) 106.21 mg/dL; Prot/Crea Ur Ratio 0.06
[2021-07-08 15:37] LABS: Calculated LDL 62 mg/dL (<100); Cholesterol 151 mg/dL (<200); HDL Cholesterol 77 mg/dL (40-60); Triglyceride 64 mg/dL (<150)
== END 2021-07-08 03:24 | disposition home or self-care (01) ==
LOC: LBO 03:23
PROVIDERS: PCP Internal Medicine; Visit Provider Internal Medicine
DX: E10.69 Type 1 diabetes mellitus with other specified complication (principal)
CPT/HCPCS: 36415; 80061; 82565; 83036; 84156

== ENCOUNTER 2021-07-23 02:36 | Outpatient (CLI) | payer MEDICAID, SELFPAY ==
--- NOTE | 2021-07-23 08:15 | DI.MRI_ITS ---
Exam(s) MR BRAIN WO EXAM: MR BRAIN WO CLINICAL HISTORY: worsening memory problems x 2 years,mild cognitive impairment,g31.84 TECHNIQUE: Multiplanar multisequence MRI of the brain was performed. COMPARISON: CT HEAD WITHOUT CONTRAST from 05/30/2017 FINDINGS: VENTRICLES AND EXTRA AXIAL SPACES: Normal in size and morphology for the patient's age. MIDLINE SHIFT: None. CEREBRAL PARENCHYMA: No focus of restricted diffusion to suggest acute infarct. No space-occupying le swapna identified. There are few scattered areas of hyperintense signal on the T2 and FLAIR images in t he white matter. HEMORRHAGE: None. BRAINSTEM/CEREBELLUM: Normal. CALVARIUM: Normal. VISUALIZED PARANASAL SINUSES/MASTOIDS:Clear. [place]: Normal flow void. PITUITARY GLAND: Unremarkable. OTHER FINDINGS: None. IMPRESSION: 1. No acute intracranial process. No evidence of an acute infarct. 2. Scattered hyperintense signal in the white matter. This likely reflects small vessel ischemic dis ease. Other etiologies include white matter injury, prior trauma, bike grain related deep white mike er disease, infectious/inflammatory conditions or vasculitis. DATA REPOSITORY:
== END 2021-07-23 02:56 ==
PROVIDERS: PCP Internal Medicine; Visit Provider Nurse Practitioner Adult Health
DX: R90.82 White matter disease, unspecified; G31.84 Mild cognitive impairment of uncertain or unknown etiology
CPT/HCPCS: 70551

== ENCOUNTER 2021-07-29 03:27 | Outpatient (CLI) | payer MEDICAID, SELFPAY ==
[2021-07-29 10:09] LABS: Vitamin B12 1232 pg/mL (193-986)
== END 2021-07-29 03:28 | disposition home or self-care (01) ==
LOC: LBO 03:27
PROVIDERS: PCP Internal Medicine; Visit Provider Nurse Practitioner Adult Health
DX: G31.84 Mild cognitive impairment of uncertain or unknown etiology (principal)
CPT/HCPCS: 36415; 82607; 84443

== ENCOUNTER 2021-11-09 15:01 | Outpatient (REF) | payer MEDICAID, SELFPAY ==
--- NOTE | 2021-11-09 14:40 | PAPFT_PTH ---
PATIENT: Ebonie Sol LOC: [facility] U#:[id number] AGE/SX: 66/F ROOM: RE11/09/[address]: Hollie Lehman : 1955 BED: DIS: 11/09/2021 SPEC #: [id number] RECD: 11/10/21 12:58 STATUS: YULISA REZachery #: [id number] VIANNEY: 11/09/21 14:[address]: Hollie Lehman DEPT: [facility] Cytology RECD BY: Lana Grissom ENTERED: 11/10/21 12:58 SP TYPE: PAPFT OTHR DR: Mitchell Yap Tissues: 1 - CX/ENDOCX FOR PAP SMEARS Procedures: PAP THIN PREP/[facility] Screening HPV DNA PROBE Comments: [id number]
== END 2021-11-09 15:02 | disposition home or self-care (01) ==
LOC: LBN 15:01
PROVIDERS: PCP Internal Medicine; Visit Provider Obstetrics & Gynecology Gynecology
DX: Z12.4 Encounter for screening for malignant neoplasm of cervix (principal); Z11.51 Encounter for screening for human papillomavirus (HPV)
CPT/HCPCS: 88142; 87624

== ENCOUNTER → 2022-03-16 01:05 | Outpatient (CLI) | payer MEDICAID, SELFPAY ==
--- NOTE | 2022-03-16 08:00 | DI.MAMMO_ITS ---
Exam(s) MAMMO SCREENING EXAM: MAMMO SCREENING CLINICAL HISTORY: screening. TECHNIQUE: Bilateral full field digital CC and MLO mammographic images were obtained with 3D tomosyn thesis and utilizing computer aided detection (CAD). COMPARISON: Prior mammograms were reviewed, the most recent being February 2021.. FINDINGS: There has been no significant change in the appearance and distribution of the fibroglandular tissue. There are no CAD designations. There are no new spiculated masses nor malignant appearing microcalcification groups. There is no significant architectural distortion nor skin thickening-retraction. IMPRESSION: No radiographic evidence of malignancy. BI-RADS Category 1 - Negative Breast Density - Category B - Scattered areas of fibroglandular density Breast density Category C or D implies that the patient has dense breast tissue. Dense breast tissue can make it harder to find cancer on a mammogram. Dense breast tissue is also associated with an incr eased risk of breast cancer. This information about the result of the mammogram report was provided to the patient to raise their awareness. Use this report when you speak with the patient about their risks for breast cancer, which includes their family history. At that time, you may recommend additional screening tests (Ultrasoun d or MRI) as these tests may add significant information. A negative radiographic report should not delay biopsy if a dominant or clinically suspicious mass is present. Up to ten percent of cancers are not identified on mammography. A negative report may reinforce clinical impression. Adenosis and dense breasts may obscure an underlying neoplasm. False positive reports average 6 to 10%. Patient will receive a letter notifying them of these results.
== END ==
PROVIDERS: PCP Internal Medicine; Visit Provider Obstetrics & Gynecology Gynecology
DX: Z12.31 Encounter for screening mammogram for malignant neoplasm of breast (principal)
CPT/HCPCS: 77063; 77067

== ENCOUNTER 2022-04-02 01:42 | Outpatient (CLI) | payer MEDICARE, SELFPAY ==
--- OUTSIDE RECORDS SUMMARY | 2022-04-02 01:48 | XMS_ITS | Encounter Summary ---
:1955 Author Care Team Providers Name Role Phone Dr. Mitchell Yap Primary Care Provider [phone] Dr. Mitchell Yap Referring Provider [phone] Reason for Visit Foot Care Assessment and Plan 1. Type 2 diabetes mellitus without com plication 2. Raynaud's phenomenon 3. Dystrophia unguium 4. Ingrowing toenail Plan: Manual debridement of dystrophic incurvated nails right and left foot. Patient tolerated the procedure well. Follow-up in clinic in 3 months. Discussion Note: None recorded.Patient educational handouts: No information available. Plan of Care Reminders Provider Appointments Foot Care 06/15/2022 10:45AM Corona plunkett DPM Lab None recorded. ? ? Referral None recorded. ? ? Procedures None recorded. ? ? Surgeries None recorded. ? ? Imaging None recorded. ? ? Medications Name Start Date ? ? Advair Diskus 100 mcg-50 mcg/dose powder for inhalatio n ? Inhale 1 puff twice a day by inhalation route. Albuterol Sulfate HFA ? INHALE 1-2 PUFF EVERY 4 HOURS NEEDED aspirin 81 mg tablet,delayed release ? Take 1 tablet every day by oral route. atorvastatin 20 mg tablet ? Take 1 tablet every day by oral route. Contour Next Test Strips ? TEST 8 TIMES A DAY cyclobenzaprine 5 mg tablet ? Take 1 tablet 3 times a day by oral route as needed. glucagon (human recombinant) 1 mg solution for injecti on ? INJECT 1 MILLILITER (1 MG) BY SUBCUTANE OUS ROUTE ONCE IN THIGH, UPPERARM, OR BUTTOCKS Humalog KwikPen (U-100) Insulin 100 unit/mL subcutaneo us ? Inject 30-40 u every day lisinopril 20 mg tablet ? Take 1 tablet every day by oral route. multivitamin ? pantoprazole 40 mg tablet,delayed release ? Take 1 tablet every day by oral route. Reclast ? Infusion every year Tylenol 500 mg tablet ? Take 2 tablets every 6 hours by oral route as needed. Notes: MVI- TAKE 1 TABLET EVERY DAY Medications Administered None recorded. Vitals None recorded. Results Lab Results None recorded. Allergies Code Code System Name Reaction Severity Onset 20340930 RxNorm Compazine ? ? ? 20290628 RxNorm Naprosyn ? ? ? Penicillins ? ? ? Problems Name Status Onset Date Source ? Type 2 Diabetes Mellitus without Complication Active ? Ingrowing Toenail Active 01/21/2022 ? Dystrophia Unguium Active 01/21/2022 ? Diabetes Mellitus Active ? ? Mixed Anxiety and Depressive Disorder Active ? ? Alcohol Abuse Active ? ? Bilateral Cataracts Active ? ? Hearing Loss of Right Ear Active ? ? Hypertensive Disorder Active ? ? Raynaud's Phenomenon Active ? ? Asthma Active ? ? Gastroesophageal Reflux Disease Active ? ? Thoracic Back Pain Active ? ? Chronic Back Pain Active ? ? Osteoporosis Active ? ? Edema of Lower Extremity Active ? ? Intermittent Palpitations Active ? ? Dyspnea Active ? ? Dyspnea on Exertion Active ? ? Increased Frequency of Urination Active ? ? Right Flank Pain Active ? ? History of Adenomatous Polyp of Colon Active ? ? Adult Health Examination Active ? ? Acquired Trigger Finger of Right Index Finger Active ? ? Joint Pain in Right Hand Active ? ? Joint Pain in Left Hand Active ? ? Trigger Thumb of Left Hand Active ? ? Procedures None recorded. Vaccine List Vaccine Type Tdap 01/03/2007 Social History Tobacco Smoking Status Former Smoker Are you currently waiting on results of a N COVID-19 test? Are you isolating or quarantining because you N may have been exposed to a person with COVID-19 or are worried that you may be sick with COVID-19? What is your level of alcohol consumption? None Have you been to an area known to be high risk N for COVID-19? Are you passively exposed to smoke? N Do you or have you ever used any other forms of N tobacco or nicotine? Has tobacco cessation counseling been provided? N In the 14 days before symptom onset, have you N had close contact with a person who is under investigation for COVID-19 while that person was ill? What was the date of your most recent tobacco 03/23/2022 screening? Do you or have you ever used e-cigarettes or Never used elec tronic cigarettes vape? In the 14 days before symptom onset, did the N patient spend time in [facility]? Do you use any illicit or recreational drugs? N In the 14 days before symptom onset, have you N had close contact with a laboratory-confirmed COVID-19 while that case was ill? Have you travelled outside of [place] in the N past 14 days? Have you experienced any of the following N symptoms in the past 48 hours? Fever/Chills, Cough, Shortness of breath or difficulty breathing, fatigue, muscle or body aches, headache, new loss of taste or smell, sore throat, congestion or runny nose, nausea or vomiting and/or diarrhea Have you had any vaccines in the last month or N do you have any vaccines scheduled? Do you or have you ever used smokeless tobacco? Never used s mokeless tobacco Within the past 14 days, have you been in close N physical contact (6 feet or closer for a cumulative total of 15 minutes) with anyone that is known to have laboratory-confirmed COVID-19? OR Anyone who has any symptoms consistent with COVID-19? If patient spent time in [facility] - N Does the patient live in [facility]? Functional Status Unknown. Past Encounters 01/21/2022 Type 2 Diabetes Mellitus without Complic ation; Raynaud's Phenomenon; Dystrophia Unguium; Ingrowing Toenail Corona Medina, DPM: [address] [place] [address], Ph. History of Present Illness Note: <div>Ebonie is a very pleasant 66-year-old diabetic female patient who is seen today for diabetic foot care. Ebonie's had diabetes for over 60 years and [facility] currently uses a insulin pump at her most recent hemoglobin A1c 3 months ago was 7.2.She has no outstanding complaint of musculoskeletal or neuropathic pain. She does experience chronica lly painful dystrophic ingrown nails on the right and left foot.</div> Review of Systems ? Podiatry ROS Reported By: Patient Constitutional: Constitutional: Happy/Conten t, no fever, no night sweats, no significant weight loss, no exercise intolerance, no fatigue, Appetite good, Norm al activity level, No significant weight change Eyes: Eyes: no vision change, no i rritation Ear, Nose, Mouth, Throat: Ears: no difficulty hearing, no ear pain. Nose: no sinus problems. Mouth/Throat: no s ore throat, no snoring, no dry mouth, no oral ulcers, no or al abnormalities, no teeth problems Cardiovascular: Cardiovascular: no arm pain at rest, no arm pain on exertion, no shortness of br eath when walking, no shortness of breath when lying down, n o palpitations, no known heart murmur Respiratory: Respiratory: no cough, no wh eezing, no shortness of breath, no coughing up blood, no sle ep apnea Gastrointestinal: Gastrointestinal: no abdomin al pain, no nausea, no vomiting, no constipation, n ormal appetite, no diarrhea, no GERD, no dyspepsia Integumentary: Skin: No pain: 0/10, No dry skin, No flaking skin, No itching (pruritus), No skin lesions, no abnormal mole, no jaundice, No redness (erythe ma), no rash, no hives, no unusual growth on the skin, No skin lumps, No swelling, No bruising, No laceration, No insect bites Musculoskeletal: Musculoskeletal: No Gait Abn ormality, no muscle aches, No muscle weakness, no arthralg ias/joint pain, no back pain, no swelling in the extremiti es, Not related to trauma or previous injury Endocrine: Endocrine: no increased thir st, no hair loss, no increased hair growth, no cold intoler ance, no changes in hair/nails Neurologic: Neurologic: no loss of consc iousness, no weakness, no numbness, no seizures, no di zziness, no headaches, no tremor, no muscle weakness, no shooting pain, no paresthesia's, no tIngling, no paralysis Hematologic/Lymphatic: Hematologic/Lymphatic no swo llen glands, no bruising, no excessive bleeding, no exces sive bleeding Allergic/Immunologic: Allergy/Immunologic: no seas onal allergies, No sneezing, No runny nose Physical Exam ? Notes: <div>Constitutional: Well-gr oomed, well developed, appears stated age, well nourished, no acute distress , alert and oriented to time, place and person, weight-appropriate to height </div><div>
</div><div>Psychiatric: Mental status-mood and affect kirit l, behavior normal,cognition and thought content normal, fund of knowledge is intact, attention span and ability to concentrate is normal, able to articulat e well with normal speech and language</div><div>
</ div><div>Respiratory: Quiet and easy respiratory effort, chest-symmetrical ex pansion, no respiratory distress, no adventitious sounds, no shortness of kalli th, respiration rate of 12</div><div>
</div><div> Vascular: </div><div>Dorsalis pedis and posterior tibial pulses are full and p alpable bilaterally. The feet are warm to touch with 1-2 second vascular rodrigo ling time at the digit levels. Digital hair is present bilaterally. No veno us varicosities are noted on the lower legs, ankles or feet. No ischemia is noted within the legs or pedal structures.</div><div>
</ div><div>Dermatologic: Mildly dystrophic, painful incurvated nonmycotic nails x10 without evidence of bleeding, pyogenic granuloma or subungual hemat omas.</div><div>
</div><div>Neurologic: Alert and oriented times 3, concen trating ability not decreased, symmetrical bulk, strength and tone in the low er extremities, coordination is normal.</div><div>Sensory ex amination-intact to light touch on the dorsal and plantar foot surfaces and me dial and lateral leg surfaces.</div><div>Motor examination-intact without d eficit</div><div>Coordination and tremors-no intentional or resting tremo rs are noted, no adventitious movement noted</div><div>Muscle fasci culations-no fasciculations noted in the lower extremity muscles</div><div> Atrophy-no atrophy noted in the intrinsic muscles of the feet, lower legs or t highs </div><div>
</div><div >Musculoskeletal: Able to rise from a chair and get up onto the orthopaedic examination table, no acute musculoskeletal problems noted in the lower extremities.</div><div>
</div><div>Gait: Normal gait and station, normal pos ture, no antalgia noted</div><div>
</div ><div>This clinic note/operative note was created using [employer] what's in [employer] recognition software. The note was reviewed by myself for primary content. There may be multiple small syntactical discrepancies and errors due to the voice recognition limitations of the software-Dr. Medina.</div><d iv>
</div>
--- OUTSIDE RECORDS SUMMARY | 2022-04-02 01:48 | XMS_ITS ---
:1955 Author Care Team Providers Name Role Phone DR. FRIEDA LENZ Primary Care Provider [phone] DR. FRIEDA LENZ Referring Provider [phone] Allergies Code Code System Name Reaction Severity Status Onset 20340930 RxNorm Compazine ? ? Active ? [id number] RxNorm Naprosyn ? ? Active ? Penicillins ? ? Active ? Medications Name Status Start Date Stop Date ? ? Advair Diskus 100 mcg-50 mcg/dose powder for inhalation Active ? Not available Inhale 1 puff twice a day by inhalation route. Albuterol Sulfate HFA Active ? Not availa ble INHALE 1-2 PUFF EVERY 4 HOURS NEEDED aspirin 81 mg tablet,delayed release Active ? Not available Take 1 tablet every day by oral route. atorvastatin 20 mg tablet Active ? Not av ailable Take 1 tablet every day by oral route. Contour Next Test Strips Active ? Not rangel ilable TEST 8 TIMES A DAY cyclobenzaprine 5 mg tablet Active ? Not available Take 1 tablet 3 times a day by oral route as needed. glucagon (human recombinant) 1 mg solution for injection Active ? Not available INJECT 1 MILLILITER (1 MG) BY SUBCUTANE OUS ROUTE ONCE IN THIGH, UPPERARM, OR BUTTOCKS Humalog KwikPen (U-100) Insulin 100 unit/mL subcutaneous Active ? Not available Inject 30-40 u every day ibuprofen 200 mg tablet Completed ? 05/25/20 21 Take 1 tablet every 6 hours by oral route as needed. ibuprofen 600 mg tablet Completed ? 08/28/19 22 TAKE 1 TABLET (600 MG) BY ORAL ROUTE 3 TIMES PER DAY EVERY 8 HOURS NEEDED WITH FOOD lisinopril 20 mg tablet Active ? Not avai lable Take 1 tablet every day by oral route. multivitamin Active ? Not available pantoprazole 40 mg tablet,delayed release Active ? Not available Take 1 tablet every day by oral route. Reclast Active ? Not available Infusion every year Tylenol 500 mg tablet Active ? Not availa ble Take 2 tablets every 6 hours by oral route as needed. Notes: MVI- TAKE 1 TABLET EVERY DAY Problems Name Status Onset Date Source ? [...] Hand Active ? ? Procedures None recorded. Results Lab Results None recorded. Past Encounters 03/23/2022 Type 2 Diabetes Mellitus without Complic ation; Raynaud's Phenomenon; Dystrophia Unguium; Ingrowing Toenail Corona Medina, DPM: [address] [place] [phone], Ph. 01/21/2022 Type 2 Diabetes Mellitus without Complic ation; Raynaud's Phenomenon; Dystrophia Unguium; Ingrowing Toenail Corona Medina, DPM: [address] [place] [address], Ph. 11/02/2021 Type 2 Diabetes Mellitus without Complic ation; Raynaud's Phenomenon; Dystrophia Unguium; Ingrowing Toenail Corona Medina, DPM: [address] [place] [address], Ph. 08/25/2021 Type 2 Diabetes Mellitus without Complic ation; Raynaud's Phenomenon; Dystrophia Unguium; Ingrowing Toenail Corona Medina, DPM: [address] [place] [address], Ph. 05/25/2021 Type 2 Diabetes Mellitus without Complic ation; Raynaud's Phenomenon; Dystrophia Unguium; Ingrowing Toenail Corona Medina, DPM: [address] [place] [address], Ph. Social History Tobacco Smoking Status Former Smoker Vaccine List Vaccine Type Tdap 01/03/2007 Plan of Care Reminders Provider Appointments None recorded. ? ? Lab None recorded. ? ? Referral None recorded. ? ? Procedures None recorded. ? ? Surgeries None recorded. ? ? Imaging None recorded. ? ? Vitals 05/25/2021 02:15PM Foot Care Blood Pressure 06/03/2020 11:30AM FOLLOW UP Weight BMI 04/01/2020 04:30PM NEW PATIENT Blood Pressure 120/62 mm[Hg]
--- OUTSIDE RECORDS SUMMARY | 2022-04-02 01:48 | XMS_ITS | Encounter Summary ---
:1955 Author Care Team Providers Name Role Phone Dr. Mitchell Yap Primary Care Provider [phone] Dr. Mitchell Yap Referring Provider [phone] Reason for Visit foot care Assessment and Plan 1. Type 2 diabetes [...] Social History Tobacco Smoking Status Former Smoker Has tobacco cessation counseling been provided? N Are you currently waiting on results of a N COVID-19 test? Are you isolating or quarantining because you N may have been exposed to a person with COVID-19 or are worried that you may be sick with COVID-19? In the 14 days before symptom onset, [...] did the N patient spend time in [facility]? Do you use any illicit or recreational drugs? N In the 14 days before symptom onset, have you N had close contact with a laboratory-confirmed COVID-19 while that case was ill? What is your level of alcohol consumption? None Have you travelled outside of [place] in the N past 14 days? Have [...] who has any symptoms consistent with COVID-19? Have you been to an area known to be high risk N for COVID-19? Are you passively exposed to smoke? N Do you or have you ever used any other forms of N tobacco or nicotine? If patient spent time in [facility] - N Does the patient live in [facility]? Functional Status Unknown. Past Encounters 03/23/2022 Type 2 Diabetes Mellitus without Complic ation; Raynaud's Phenomenon; Dystrophia Unguium; Ingrowing Toenail Corona Medina, DPM: [address] [place] [address], Ph. History of Present Illness Note: <div>Ebonie is a very pleasant 67-year-old diabetic female patient who is seen today for diabetic foot care. Ebonie's had diabetes for over 60 years and [facility] She currently uses a insulin pump at her most recent hemoglobin A1c 3 months ago was below 8.0. She has no outstanding complaint of musculoskeletal or neuropathic pain. She does experience chronically painful dystrophic ingrown nails on the right [...] place and person, weight-appropriate to height </div><div>
</div><div>Vascular: Dorsalis pedis and posterior tibial pulses are full and palpable bilaterally. The feet are warm to touch with 1-2 secon d vascular filling time at the digit levels. Digital hair is present bila terally. No venous varicosities are noted on the lower legs, ankles or feet. No ischemia is noted within the legs or pedal structures.</div><div>
</ div><div>Dermatologic: Mildly dystrophic, painful incurvated nonmycotic nails x10 without evidence of bleeding, pyogenic granuloma or subungual hemat omas.</div><div>
</div><div>Neurologic: Alert and oriented times 3, concen trating ability not decreased, symmetrical bulk, strength and tone in the low er extremities, coordination is normal.</div><div>Sensory examination-intact to light touch on the dorsal and plantar foot surfaces an d medial and lateral leg surfaces.</div><div>Motor examination-intact without d eficit</div><div>Coordination and tremors-no intentional or resting tremo rs are noted, no adventitious movement noted</div><div>Muscle fasci culations-no fasciculations noted in the lower extremity muscles</div><div> Atrophy-no atrophy noted in the intrinsic muscles of the feet, lower legs or t highs </div><div>
</div><div>Musculoskeletal: Able to rise from a chair an d get up onto the orthopaedic examination table, no acute musculoskeletal pro blems noted in the lower extremities.</div><div>
< /div><div>Gait: Normal gait and station, normal posture, no antalgia noted</ div><div>
</div><div>This clinic note/operative note was lucille zavala using [employer] voice recognition software. The note was revie wed by myself for primary content. There may be multiple small syntactical d iscrepancies and errors due to the voice recognition limitations of jody menjivar software-Dr. Medina.</div><div>
</div>
[2022-04-02 09:30] LABS: COMMENT (LAB VIEW ONLY) 61.64 mg/dL; Microalb ug/mg Crea 8.4 ug/mg Cr
[2022-04-02 09:44] LABS: Anion Gap 6.5 mmol/L (3-11); BUN 17 mg/dL (7-18); CO2 29.5 mmol/L (21.0-32.0); CREATININE 0.9 mg/dL (0.55-1.02); Calcium 9.5 mg/dL (8.5-10.1); Calculated LDL 54 mg/dL (<100); Chloride 106 mmol/L (98-107); Cholesterol 144 mg/dL (<200); Estimated GFR 70.95 (mL/min/1.73m2); Glucose 145 mg/dL (74-106); HDL Cholesterol 79 mg/dL (40-60); Potassium 3.9 mmol/L (3.5-5.1); Sodium 142 mmol/L (136-145); TSH (W/Ref FT4) 2.22 uIU/mL (0.36-3.74); Triglyceride 57 mg/dL (<150)
[2022-04-02 09:53] LABS: Hemoglobin A1C 7.4 % (<5.7)
== END 2022-04-02 01:43 | disposition home or self-care (01) ==
LOC: LBO 01:42
PROVIDERS: PCP Internal Medicine; Visit Provider Student in an Organized Health Care Education/Training Program
DX: E10.9 Type 1 diabetes mellitus without complications (principal)
CPT/HCPCS: 36415; 80048; 80061; 82043; 82570; 83036; 84443

== ENCOUNTER 2022-06-03 01:04 | Outpatient (CLI) | payer MEDICARE, MEDICAID, SELFPAY ==
--- NOTE | 2022-06-03 09:37 | DI.RAD_ITS ---
Exam(s) XR CERVICAL SPINE COMP 4-5V EXAM: XR CERVICAL SPINE COMP 4-5V CLINICAL HISTORY: NECK PAIN, M54.2, RE NECK PAIN, OA. TECHNIQUE: 2D digital imaging was performed. Five images were obtained. AP, odontoid, lateral and bi lateral oblique images were obtained. COMPARISON: No exams were available for comparison FINDINGS: The odontoid is intact. The lateral masses are well aligned. There is normal alignment of the cervi emily spine. There is mild disc space narrowing at C5-6 and C6-C7. Endplate osteophytes are seen from C4-5 through C6-C7. No acute fracture or subluxation is present. There is mild bilateral neural juany inal narrowing at C5-6 and C6-C7. The cervical thoracic junction is well maintained. The prevertebra l soft tissues are unremarkable. Lung apices are clear. IMPRESSION: Moderate degenerative changes in the cervical spine. DATA REPOSITORY: RADIATION DOSE DELIVERED:
== END 2022-06-03 01:24 ==
PROVIDERS: PCP Internal Medicine; Visit Provider Internal Medicine
DX: M50.322 Other cervical disc degeneration at C5-C6 level; M50.323 Other cervical disc degeneration at C6-C7 level
CPT/HCPCS: 72050

== ENCOUNTER 2022-06-25 00:30 | Outpatient (CLI) | payer MEDICARE, MEDICAID, SELFPAY ==
--- NOTE | 2022-06-25 | DI.DEXA_ITS ---
Exam(s) XR DEXA BONE DENSITY W/WO JYOTHI EXAM: XR DEXA BONE DENSITY W/WO JYOTHI CLINICAL HISTORY: SCREENING FOR OSTEOPOROSIS IN POSTMENOPAUSAL WOMAN,Z78.0 TECHNIQUE: [employer] Horizon C densitometer analysis of left hip, lumbar spine and left forearm. COMPARISON: DX DEXA BONE DENSITY WITH JYOTHI from 12/01/2017 CR XR thoracic spine complete from 02/02/2019 FINDINGS: Lateral view of the thoracic and lumbar spine shows a stable moderate compression fracture of T9 Bone mineral density measurements of the lumbar spine correspond to a total T-score of -3.7, in the osteoporotic range. Not significantly changed from prior. Bone mineral density measurements of the left hip correspond to a total T-score of -2.3. The femora l neck T-score is -2.9, in the osteoporotic range. 7.8 percent decrease from 2018.. The left forearm bone mineral density measurements correspond to a T-score of the distal 3rd of -2.6 , in the osteoporotic range. Not significantly changed from prior. IMPRESSION: Osteoporosis of the lumbar spine, left hip and left forearm.
== END 2022-06-25 00:50 ==
PROVIDERS: PCP Internal Medicine; Visit Provider Student in an Organized Health Care Education/Training Program
DX: M81.0 Age-related osteoporosis without current pathological fracture (principal); Z78.0 Asymptomatic menopausal state
CPT/HCPCS: 77080

== ENCOUNTER 2022-08-05 09:30 | Emergency (ER) | payer MEDICARE, MEDICAID, SELFPAY ==
[2022-08-05 09:38] VITALS: BP 143/56; PULSE 74; RESP 18; TEMP 37.2; O2SAT 99
--- NOTE | 2022-08-05 09:45 | DI.RAD_ITS ---
Exam(s) XR CHEST 2V PA LATERAL EXAM: XR CHEST 2V PA LATERAL CLINICAL HISTORY: vomiting, chest pain. TECHNIQUE: 2D digital imaging was performed. COMPARISON: CR,RF RF BARIUM SWALLOW from 09/22/2020 FINDINGS: 2 views: Heart size is normal. The mediastinum is not widened. Lungs are clear. No infiltrates nor pleural effusions. IMPRESSION: No acute pulmonary findings. DATA REPOSITORY: RADIATION DOSE DELIVERED:
--- NOTE | 2022-08-05 09:45 | DI.CT_ITS ---
Exam(s) CT NECK W EXAM: CT NECK W INDICATION: difficulty swallowing, fb sensation. COMPARISON: No exams were available for comparison TECHNIQUE: IV contrast: Omnipaque 350-100 ml FINDINGS: VISUALIZED PARANASAL SINUSES: There is complete opacification of the left maxillary sinus. Possible solid tissue given the appearance. No sinus expansion nor obvious bone dehiscence. The opposite-rig ht maxillary sinus is clear. NASOPHARYNX: Unremarkable OROPHARYNX: Calcified bilateral tonsilliths evident. No obvious tonsillar abscess. HYPOPHARYNX: Unremarkable. Valleculae and epiglottis and aryepiglottic folds appear normal. VOCAL CORDS: Unremarkable. No masses evident. Subglottic airway appears unremarkable. THYROID GLAND: Unremarkable. Normal size and no obvious nodules. SALIVARY GLANDS: Unremarkable. No significant findings in the parotid and submandibular glands. LYMPH NODES: There is no adenopathy evident in the neck and supraclavicular regions. VASCULAR: No significant arterial narrowing of the carotid arteries in the neck. OTHER: Multilevel disc space narrowing in the lower cervical spine. No fractures. No listhesis. No osseous lesions. VISUALIZED LUNG APICES: No significant findings. No radiopaque foreign body, IMPRESSION: 1. Calcified tonsilliths evident in both pharyngeal tonsils. No evidence of ring-enhancing abscess in the tonsils nor elsewhere in the neck no adenopathy on either side of the neck. 2. Incidentally noted is complete opacification left maxillary sinus with dense tissue. No obvious bone dehiscence. The opposite-right maxillary sinus is clear as are the other partially visualized p aranasal sinuses 3. No radiopaque foreign body seen. Report called by myself to ER provider. CONTRAST MATERIAL: Intravenous: Omnipaque 350 Contrast volume:100 mL RADIATION DOSE DELIVERED: 269.05mGy.cm Total DLP 269.05mGy.cm Total DLP DATA REPOSITORY: All CT scans at this facility are submitted to the National Radiology Data Registry (NRDR) Dose Index Registry (DIR) with the [employer] (A[employer]). RADIATION OPTIMIZATION: All CT scans at this facility use at least one of these dose optimization te chniques: automated exposure control; mA and/or kV adjustment per patient size (includes targeted exa ms where dose is matched to clinical indication); or iterative reconstruction.
[2022-08-05 10:07] VITALS: BP 115/46; PULSE 66; RESP 18; O2SAT 100
[2022-08-05] MEDS: Lactated Ringers 1,000 ML 1000 ML IV (10:10)
[2022-08-05 10:19] LABS: Abs Immature Grans 0.02 10^3/uL (0.0-0.06); Absolute Basophil Count 0.05 10^3/uL (0.0-0.2); Absolute Eosinophil Count 0.14 10^3/uL (0.0-0.7); Absolute Lymphocyte Count 1.09 10^3/uL (1.2-3.4); Absolute Neutrophil Count 2.88 10^3/uL (1.2-6.7); Basophils % 1.1; Eosinophils % 3.1; HCT 39.5 % (36.0-46.0); HGB 13.1 g/dL (11.2-15.7); Immature Grans % 0.4; Lymphocytes % 23.8; MCH 30.8 pg (27.0-33.0); MCHC 33.2 % (32.0-36.0); MCV 93 fL (80-95); MPV 10.5 fL (8.0-11.0); Monocytes % 8.7; Neutrophils % 62.9; Platelet Count 250 10^3/uL (130-400); RBC 4.26 10^6/uL (3.93-5.22); RDW 13.2 % (11.7-14.6); RDW-SD 44.7 fL; WBC 4.58 10^3/uL (4.4-10.8)
[2022-08-05] MEDS: Ondansetron 4 MG/2 ML VIAL IVP (10:20)
[2022-08-05 10:37] LABS: ALT 37 U/L (14-59); AST 29 U/L (15-37); Albumin 3.8 g/dL (3.4-5.0); Alkaline Phosphatase 69 U/L (46-116); Anion Gap 9.3 mmol/L (3-11); BUN 13 mg/dL (7-18); Bilirubin, Total 0.8 mg/dL (0.2-1.0); CO2 26.7 mmol/L (21.0-32.0); CREATININE 0.9 mg/dL (0.55-1.02); Calcium 9.7 mg/dL (8.5-10.1); Chloride 107 mmol/L (98-107); Estimated GFR 70.95 (mL/min/1.73m2); Glucose 152 mg/dL (74-106); Lipase 16 U/L (16-77); Potassium 4.1 mmol/L (3.5-5.1); Sodium 143 mmol/L (136-145); Troponin I < 50 ng/L (<or=60)
[2022-08-05] MEDS: Omnipaque 350 MG/ML 100 ML BTL IJ (11:15)
[2022-08-05 11:19] LABS: COVID-19 PCR Negative (Negative); Influenza A PCR Negative (Negative); Influenza B PCR Negative (Negative); RSV PCR Negative (Negative)
[2022-08-05 11:21] LABS: Source Nasopharynx
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
--- NOTE | 2022-08-05 12:44 | NUR.NOTE ---
Nursing Note: Referral faxed to [facility] ENT for sinusitis/dysphagia, next available. Referral faxed to [facility] Surgery for dysphagia and upper endoscopy; within 1 week if possible.
== END 2022-08-05 12:57 | disposition home or self-care (01) ==
PROVIDERS: Emergency Provider Physician Assistant; PCP Internal Medicine
DX: R13.10 Dysphagia, unspecified (principal); J34.89 Other specified disorders of nose and nasal sinuses; R11.2 Nausea with vomiting, unspecified; I10 Essential (primary) hypertension; J45.20 Mild intermittent asthma, uncomplicated; E10.9 Type 1 diabetes mellitus without complications; Z20.822 Contact with and (suspected) exposure to COVID-19; Z79.82 Long term (current) use of aspirin
CPT/HCPCS: 36415; 70491; 80053; 83690; 87637; 96361; 96374; 99284; 99285; 71046; 84484; 85025; J2405; J3490

== ENCOUNTER → 2022-08-24 13:25 | Outpatient (BNVA) | payer MEDICARE, MEDICAID, SELFPAY | PROVIDERS: PCP Internal Medicine; Referring Provider Internal Medicine; Visit Provider Surgery | DX: R13.13 Dysphagia, pharyngeal phase (principal); Z80.0 Family history of malignant neoplasm of digestive organs; Z12.11 Encounter for screening for malignant neoplasm of colon; E11.9 Type 2 diabetes mellitus without complications; Z79.4 Long term (current) use of insulin; I10 Essential (primary) hypertension | CPT/HCPCS: 99215; 99243 ==

== ENCOUNTER 2022-09-09 07:02 | Day surgery (SDC) | payer MEDICARE, MEDICAID, SELFPAY ==
[2022-09-09 07:10] VITALS: BP 125/59; PULSE 89; RESP 18; TEMP 36.7; O2SAT 100
[2022-09-09] MEDS: Lactated Ringers 1,000 ML 80 ML IV (07:41)
--- NOTE | 2022-09-09 07:41 | W.ANESPRE ---
General Info Date of Service Date Performed: 09/09/22 Height: 5 ft Weight: 61.9 kg Body Mass Index (BMI): 26.6 Surgical Procedure: Operation Date: 09/09/22 08:20 Proposed Procedure Side Surgeon p Colonoscopy/Gastroscopy Eyad Castillo MD Meds Allergies and Home Medications Allergies Allergy/AdvReac Type Severity Reaction Status Date / Time Penicillins Allergy Severe Anaphylaxis Unverified 09/09/22 07:22 prochlorperazine Allergy Severe Other (See Unverified 09/09/22 07:22 Comment) naproxen Allergy Mild Unknown Unverified 09/09/22 07:22 Home Medication Medication Instructions Recorded albuterol sulfate 90 mcg/actuation 1 - 2 inh inhalation Q4H PRN 10/19/18 aerosol inhaler (ProAir HFA) glucagon (human recombinant) 1 mg 1 mg PRN PRN severe hypoglycemia 10/19/18 solution for injection (Glucagon Emergency Kit) magnesium 250 mg tablet 250 mg PO HS 10/19/18 multivitamin (Multiple Vitamins 1 tab PO HS 10/19/18 tablet) insulin lispro 100 unit/mL 20 - 25 unit subcut DAILY 03/09/21 subcutaneous solution (Humalog U-100 Insulin) lisinopril 20 mg tablet 20 mg PO HS 03/09/21 acetaminophen 500 mg tablet 1,000 mg PO BID 07/21/21 (Tylenol Extra Strength) atorvastatin 20 mg tablet 20 mg PO HS 08/13/21 cyclobenzaprine 5 mg tablet 5 mg PO QHS PRN muscle spasm 08/13/21 cholecalciferol (vitamin D3) 50 2,000 unit PO HS 08/05/22 mcg (2,000 unit) capsule bisacodyl 5 mg tablet,delayed 5 mg PO ONCE #4 tabs 08/24/22 release (Dulcolax (bisacodyl)) polyethylene glycol 3350 17 17 g PO ONCE #238 grams 08/24/22 gram/dose oral powder dexlansoprazole 30 mg 30 mg PO HS 09/08/22 capsule,biphase delayed release (Dexilant) Current Visit Medications: Current Medications Generic Name Dose Route Start Last Admin Trade Name Freq PRN Reason Stop Dose Admin Ringer's Solution 1,000 mls @ 80 mls/hr 09/09/22 06:00 09/09/22 07:41 IV 10/08/22 23:59 80 mls/hr INFUSION JAMESON Administration IV Miscellaneous Supplies 1 each 09/09/22 06:00 Iv Access IV 10/08/22 23:59 DIRECTED JAMESON Sodium Chloride 0 ml 09/09/22 06:00 Normal Saline Flush 10 Ml Syr IV 10/08/22 23:59 PRN PRN Sodium Chloride 0 ml 09/09/22 06:00 Normal Saline 10 Ml Vial IJ 10/08/22 23:59 DIRECTED PRN Sterile Water 0 ml 09/09/22 06:00 Water,Injection,Sterile 10 Ml Vial IJ 10/08/22 23:59 DIRECTED PRN PFSH Active Problems Active Problems: Problem Status Onset Code Insulin dependent diabetes mellitus E11.9, Z79.4 Hypertension I10 Asthma J45.909 Status post cataract extraction and insertion of intraocular lens of right eye 10/23/18 Z98.41, Z96.1 Status post cataract extraction and insertion of intraocular lens of left eye 11/06/18 Z98.42, Z96.1 Right flank pain R10.9 Urgency incontinence N39.41 Mild cognitive impairment G31.84 Nail dystrophy L60.3 Medical History Medical History Alcohol abuse Asthma, intermittent Back pain thoracic region Cataract bilateral Depression with anxiety Diabetes mellitus type 1 pump in situ Dysphagia, pharyngeal phase Edema GERD (gastroesophageal reflux disease) Hearing loss in right ear Hx of adenomatous colonic polyps Hypertension Intermittent palpitations Pt. states this is not current Osteoporosis Pain in joints of left hand Pain in joints of right hand Raynaud phenomenon Strain of thoracic back region Trigger finger of left thumb Trigger finger, right index finger Urinary incontinence Surgical History Surgical History History of carpal tunnel release 12/26/1987 (complicated by median nerve) left middle finger trigger release History of section x2 ( and ) History of surgical removal of pilonidal cyst Tobacco Smoking/Tobacco Use Status: Former Tobacco Use Alcohol Alcohol Intake: former Substance Use Substance use: Never Substance use type: does not use Prental History History 2 Para 2 Hx # Term Pregnancies Multiple births Hx # Pregnancies Ectopic pregnancies AB induced Hx Number of Living Children 2 AB spontaneous Vital Signs and Lab Results Vital Signs Most Recent Vital Signs in EMR: Most Recent Vital Signs Temp Pulse Resp BP Pulse Ox 36.7 C 89 18 125/59 L 100 09/09/22 07:10 09/09/22 07:10 09/09/22 07:10 09/09/22 07:10 09/09/22 07:10 Lab Results Blood Type / Crossmatch: No Data to Display Complete Blood Count: No Data to Display Complete Metabolic Panel: No Data to Display Liver Function Panel: No Data to Display Coagulation Panel: No Data to Display Cardiac Panel: No Data to Display Arterial Blood Gas: No Data to Display Venous Blood Gas: No Data to Display Pancreas Panel: No Data to Display Thyroid Panel: No Data to Display Infectious Disease: No Data to Display Blood Cultures: No Data to Display Toxicology Panel: No Data to Display Imaging and Studies Imaging and Studies Study information below may be from another EMR and interpreted by another provider. Please see original notes in EMR for more complete details. Stress Test Summary: Stress ECG Conclusion 1. The patient exercised for 7 minutes 30 seconds (9 METS). Rate-pressure product was 22,000 2. There were no symptoms suggestive of ischemia during stress. Exercise was stopped due to leg fatigue. 3. The Sam Score ( 7) estimates an annual cardiovascular mortality of 0% and a five year survival of 95%. Using the Sam Score there is a low probability of any angiographic coronary disease. Anesthesia Assessment and Plan Anesthesia History Personal History: No History of Anesthesia Complications Family History: No Family History of Anesthesia Complications Exercise Tolerance Exercise Tolerance: Metabolic Equivalents<4 Pertinent Negatives Pertinent Negatives: No Symptoms of GERD (med controlled) Cardiac & Pulmonary Exam Cardiac Exam: Normal S1/S2 Heart Sounds Pulmonary Exam: Clear Bilateral Breath Sounds Implantable Cardiac Device Does patient have a Pacemaker or an ICD?: No Airway Exam Known Difficult Airway: No Mallampati Class: 2 Mouth Opening: Normal (> 3cm) Thyromental Distance: Greater than 3 cm Neck Range of Motion: Full ROM Neck Circumference: Normal Teeth Condition: Normal Dentition ASA Classification ASA Score: ASA 3 Emergency Case?: No NPO Status NPO Status: NPO Clears >2 hours, Solids >8 hours Anesthesia Plan Resuscitation Status: Full Code Anesthesia Technique: General Anesthesia Airway Planned: Natural Airway Monitors Used: Standard Monitors Preoperative Comments:: 188 blood sugar implantable pump Non controlled GERD. Discussed aspiration risk
[2022-09-09 08:02] VITALS: BMI 26.6
--- NOTE | 2022-09-09 08:04 | W.PM.ENDDOP ---
Date of service: 09/09/22 Time of Service: 08:30 Endoscopy Report PROCEDURE DESCRIPTION: Procedures performed: 1.? Esophagogastroduodenoscopy with cold forceps biopsies Preoperative diagnosis: Dysphagia, GERD Postoperative diagnosis: Normal foregut Surgeon: Brenda Castillo Anesthesia: Bharat Indication for procedure: 67-year-old woman with no significant family history has had GERD for at least 5 or 6 years. Over the last few months she has experienced new?onset of dysphagia to solids but not liquids. She describes this in the neck region. Findings: - D3, D2 and D1 - normal - no inflammation or ulcers - Pylorus - patent.? No bile reflux visualized during procedure. - Antrum -no visible inflammation- biopsies taken to rule out occult H. pylori - Stomach Body - no visible inflammation - Fundus -? Normal.? No polyps. - Hiatus - Retroflexion showed no evidence of hiatal hernia - Esophagus - distal esophagus does not look inflamed.? No stricture or evidence of Garvin's.? The mid and proximal esophagus was also normal. I took cold forceps biopsies in each of these 3 locations because of her pre-op diagnosis. - Cords/hypopharynx - Normal OVERALL - no abnormal findings macroscopically. Multiple biopsies taken for microscopic assessment. Surveillance/follow-up recommendations: Pending biopsy results.?? Unlikely to be necessary.?? Complications: None Blood loss: Minimal Specimens:? YES Procedure in detail: Written consent was obtained from the patient who was in agreement with the risks, benefits and indications of the procedure.? We went to the endoscopy suite and laid the patient in left lateral decubitus position.? Anesthesia was administered which was tolerated well.? A timeout was performed and when we are all in agreement we began the procedure. A well?lubricated endoscope was advanced without difficulty down the esophagus, into the stomach, through a patent pylorus and into the duodenum.? It was then slowly pulled back with findings noted above. The scope was then removed and the patient tolerated the procedure well and was then turned for the colonoscopy portion of the procedure (see separate procedure note)
--- NOTE | 2022-09-09 08:05 | W.COLOREPORT ---
Date of service: 09/09/22 Time of Service: 08:30 Colonoscopy Report Procedure Description: Procedures performed: 1. Colonoscopy Preoperative diagnosis: Surveillance colonoscopy Postoperative diagnosis: Normal Colon Surgeon: Brenda Castillo Anesthesia: Bharat Indication for procedure: 67-year-old woman is due for surveillance colonoscopy. Her last one was 5 years ago and reportedly had a hyperplastic polyp removed. She has a family history with her sister having from colon cancer. She is not having any symptoms. Findings: Normal terminal ileum. Normal colon. No obvious diverticular disease. Normal rectum. No polyps or concerning lesions. Surveillance/follow-up recommendations: 5 years because of the family history Complications: None Blood loss: Minimal Prep: Excellent Procedure in detail: Written consent was obtained from the patient who was in agreement with the risks, benefits and indications of the procedure.? The patient was turned from upper endoscopy (see separate procedure note) and kept in the same position and anesthesia was continued. I started the colonoscopy portion of the procedure. Digital rectal exam and visual examination was performed and within normal limits.? A well?lubricated colonoscope was advanced without difficulty all the way to the cecum identified by the ileocecal valve, and triangular folds and appendiceal orifice.? Terminal ileum was normal.? It was then slowly withdrawn.?? Retroflexion was performed in the rectum.? The findings/interventions are noted above. The scope was then removed and the patient tolerated the procedure well and was then taken back to the PACU in hemodynamically stable condition.
--- NOTE | 2022-09-09 08:16 | ESO_PTH ---
PATIENT: Ebonie Sol LOC: [facility] U#:[id number] AGE/SX: 67/F ROOM: RE09/09/[address]: Eyad Castillo : 1955 BED: DIS: 09/09/2022 SPEC #: [id number] RECD: 09/09/22 12:26 STATUS: [facility] #: [id number] VIANNEY: 09/09/22 08:[address]: Eyad Castillo DEPT: Surgical Specimen RECD BY: Lana Grissom ENTERED: 09/09/22 12:28 SP TYPE: Eso OTHR DR: Mitchell Yap Tissues: 1 - STOMACH BIOPSY 2 - ESOPHAGUS BIOPSY 3 - ESOPHAGUS BIOPSY 4 - ESOPHAGUS BIOPSY Procedures: GROSS AND MICRO LEVEL 4 Comments: [id number]
[2022-09-09 08:39] VITALS: BP 101/66; PULSE 89; RESP 16; TEMP 36.2; O2SAT 99
--- NOTE | 2022-09-09 08:56 | W.ANESPOSTOP ---
Postoperative Evaluation Date, Time and Location Date Performed: 09/09/22 Time Performed: 08:56 Patient Location: Day Surgery Unit Vital Signs Most Recent Imported Vital Signs: Most Recent Vital Signs Temp Pulse Resp BP Pulse Ox 36.2 C L 89 16 101/66 99 09/09/22 08:39 09/09/22 08:39 09/09/22 08:39 09/09/22 08:39 09/09/22 08:39 Pain Score Most Recent Pain Score: Most Recent Pain Score Pain Level 0 09/09/22 08:39 Assessment Mental Status: Awake (Alert & Oriented to Patient Baseline) Airway and Respiratory Function: Patent airway with normal (patient baseline) respiratory exam Cardiovascular Function: Hemodynamically Stable Hydration Status: Adequately Hydrated Nausea & Vomiting: No Nausea or Vomiting Pain: Pt. Denies Any Pain Peripheral Nerve Block: Patient did not receive a nerve block
[2022-09-09 09:08] VITALS: BP 114/59; PULSE 76; RESP 16; TEMP 36.3; O2SAT 99
== END 2022-09-09 09:19 | disposition home or self-care (01) ==
PROVIDERS: PCP Internal Medicine; Visit Provider Student in an Organized Health Care Education/Training Program
PROC: (CPT 43239; principal; 2022-09-09 08:15)
DX: Z12.11 Encounter for screening for malignant neoplasm of colon (principal); Z80.0 Family history of malignant neoplasm of digestive organs; Z86.010 Personal history of colon polyps; R13.10 Dysphagia, unspecified; K31.89 Other diseases of stomach and duodenum; K20.91 Esophagitis, unspecified with bleeding
CPT/HCPCS: 43239; G0105; 88305

== ENCOUNTER 2022-09-21 18:51 | Inpatient (IN) | payer MEDICARE, MEDICAID, SELFPAY ==
[2022-09-21] VITALS (63 sets, daily range): BP systolic 100–144; BP diastolic 43–121; PULSE 74–115; RESP 13–30; TEMP 36.3–36.5; O2SAT 100
--- NOTE | 2022-09-21 18:30 | RT.EKG_ITS ---
APPROVED REPORT Exam: Resting ECG Reason for Exam: unresponsive Patient Location: E HR:76 bpm ECG Measurements Heart Rate 76 AXIS VT 148 P 64 QRSd 93 QRS -6 QT 424 T 15 QTc 478 Conclusion Sinus rhythm...normal P axis, V-rate 60- 99
--- NOTE | 2022-09-21 18:45 | DI.CT_ITS ---
Exam(s) CT HEAD SINUS WO EXAM: CT HEAD SINUS WO CLINICAL HISTORY: CHange in mental status. Hx L sinusitis. TECHNIQUE: Imaging Protocol: Axial computed tomography images with coronal and sagittal reformatted images were created and reviewed COMPARISON: CT HEAD WITHOUT CONTRAST from 05/30/2017 FINDINGS: Ventricles and Extra axial spaces: Normal in size and morphology for the patient's age. Hemorrhage: None. Cerebral parenchyma: There is no evidence of an acute territorial infarct. Midline shift: None. Brainstem/Cerebellum: Normal. Calvarium: Normal. Soft Tissues: Unremarkable. Frontal sinuses: Normally aerated. Ethmoid air cells: Normally aerated. There appears to been resection of the floors of the ethmoid air cells. Maxillary sinuses: There is near complete opacification of the left maxillary sinus. There is some h igh density material seen within the sinus. This can be seen with inspissated secretions or fungal i nfection. There is mild mucosal thickening in the right maxillary sinus. Sphenoid sinus: Normally aerated. Ostiomeatal complexes: Patent. Osseous nasal septum: Midline. Visualized regional soft tissues: No acute findings. Orbits: Unremarkable. Bones: Unremarkable. Mastoid Air Cells: Normally aerated. IMPRESSION: 1. No acute intracranial process. 2. Chronic left maxillary sinusitis. High density material within the sinus which can be seen with i nspissated secretions or fungal infection. RADIATION DOSE DELIVERED: 723.82mGy.cm Total DLP DATA REPOSITORY: All CT scans at this facility are submitted to the National Radiology Data Registry (NRDR) Dose Index Registry (DIR) with the [employer] ([employer]). RADIATION OPTIMIZATION: All CT scans at this facility use at least one of these dose optimization te chniques: automated exposure control; mA and/or kV adjustment per patient size (includes targeted exa ms where dose is matched to clinical indication); or iterative reconstruction.
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
[2022-09-21 19:12] LABS: Abs Immature Grans 0.03 10^3/uL (0.0-0.06); Absolute Basophil Count 0.04 10^3/uL (0.0-0.2); Absolute Eosinophil Count 0.42 10^3/uL (0.0-0.7); Absolute Lymphocyte Count 1.06 10^3/uL (1.2-3.4); Absolute Monocyte Count 0.46 10^3/uL (0.1-0.8); Basophils % 0.4; Eosinophils % 4.5; HCT 37.6 % (36.0-46.0); HGB 12.7 g/dL (11.2-15.7); Immature Grans % 0.3; Lymphocytes % 11.4; MCH 31.1 pg (27.0-33.0); MCHC 33.8 % (32.0-36.0); MCV 92 fL (80-95); MPV 10.6 fL (8.0-11.0); Monocytes % 4.9; Neutrophils % 78.5; Platelet Count 230 10^3/uL (130-400); RBC 4.08 10^6/uL (3.93-5.22); RDW 12.9 % (11.7-14.6); RDW-SD 43.6 fL; WBC 9.31 10^3/uL (4.4-10.8)
--- NOTE | 2022-09-21 19:15 | DI.RAD_ITS ---
Exam(s) XR CHEST 2V PA LATERAL EXAM: XR CHEST 2V PA LATERAL CLINICAL HISTORY: mental status change, hypoglycemia TECHNIQUE: 2D digital imaging was performed of the chest. Two images were obtained. PA and lateral views were obtained. COMPARISON: CR XR CHEST 2V PA LATERAL from 08/05/2022 FINDINGS: MEDIASTINUM: Normal. HEART: Heart is at the upper limits of normal in size. PULMONARY VASCULATURE: Normal. LUNGS: Clear. PLEURAL SPACE: No pleural effusion or pneumothorax. BONE:Within normal limits for the patient's age. There is an old T10 compression fracture deformity. OTHER FINDINGS:Normal. IMPRESSION: No acute pulmonary findings. DATA REPOSITORY: RADIATION DOSE DELIVERED:
[2022-09-21 19:30] LABS: ALT 35 U/L (14-59); AST 36 U/L (15-37); Albumin 3.3 g/dL (3.4-5.0); Alkaline Phosphatase 70 U/L (46-116); Anion Gap 9.3 mmol/L (3-11); BUN 26 mg/dL (7-18); Bilirubin, Total 0.3 mg/dL (0.2-1.0); CO2 23.7 mmol/L (21.0-32.0); CREATININE 0.8 mg/dL (0.55-1.02); Calcium 9.3 mg/dL (8.5-10.1); Chloride 107 mmol/L (98-107); ETHANOL BLOOD < 3.0 mg/dL (<10); Estimated GFR 81.72 (mL/min/1.73m2); Glucose 87 mg/dL (74-106); Magnesium 1.7 mg/dL (1.8-2.4); Potassium 3.8 mmol/L (3.5-5.1); Sodium 140 mmol/L (136-145); Total Protein 6.4 g/dL (6.4-8.2); Troponin I < 50 ng/L (<or=60)
[2022-09-21 19:48] LABS: Bilirubin Negative (Negative); Blood Negative (Negative); Clarity Clear (Clear); Glucose 500 mg/dL (Negative); Ketones Trace mg/dL (Negative); Leukocyte Esterase Negative (Negative); Nitrite Negative (Negative); Specific Gravity >= 1.030 (1.005-1.025); Urobilinogen 0.2 mg/dL (Up to 0.2); pH 5.5 (5-8)
[2022-09-21 19:49] LABS: Bacteria Negative HPF (Negative); C & S Indicated? No; Casts Negative LPF (Negative); Crystals Negative HPF (Negative); Epithelial Cells Rare HPF (Negative); Mucus Negative (Negative); Other Cells Negative (Negative); RBC 0-2 HPF (0-2); WBC 0-2 HPF (0-5)
[2022-09-21] MEDS: Dextrose 50%-Water 25 GM/50 ML SYR IVP ×2 (19:51→20:45)
[2022-09-21 20:00] LABS: *AMPHETAMINES SCREEN URINE Negative (Negative); *BARBITURATES SCREEN URINE Negative (Negative); *BENZODIAZEPINES SCREEN URINE Negative (Negative); Cannabinoids THC Negative (Negative); Cocaine Screen,Urine Negative (Negative); METHADONE URINE SCREEN Negative (Negative); OPIATES URINE SCREEN Negative (Negative); Tricyclic Antidepressants Negative (Negative)
--- NOTE | 2022-09-21 20:01 | W.EDPROG ---
Date of service: 09/21/22 Time of Service: 20:00 Medical Decision Making 1999 --please see Dr. Ward's note for initial presentation, exam and plan. Case endorsed to continue to monitor glucose and follow-up on imaging results. Patient is a 67-year-old female with a history of insulin-dependent diabetes, GERD, asthma, hypertension, anxiety, depression and chronic sinusitis who presents from home for report of hypoglycemia in an unresponsive patient. reported that he heard a loud thump and states that she sat down quickly in a chair and seemed dazed and confused . He denies any fall including head injury or any other injuries and patient denies any specific pain anywhere. Patient is awake and alert and answering questions appropriately. On arrival to scene at home per EMS, pt appeared confused and her glucose was 52 and she was given 250 cc of D10 and her sugar increased to 184. Glucose on arrival here was 117 and then she dipped as low as 34 and was given 500 cc of D10 as well as an amp of D50. She was able to eat some peanut butter. Her last glucose check was 156. expressed concern for patient going home this evening. There is a concern that her insulin pump has not been working as she reports hyperglycemia with sugar in the 300s over the last 3 days and then sudden hypoglycemia this evening. It may be appropriate for her to be admitted overnight for observation in case of repeat hypoglycemia as she likely cannot use her pump at this time and may need to use insulin injections until pump assessed. 2044 --glucose dropped again to 59. We will continue to feed. She is currently on D10 at 100 cc/h. We will plan for admission for continued monitoring. Case discussed with Dr. Giang who accepts patient for admission. We will consult [facility] endocrinology for recommendations. He would rather hold before placing admission orders after endocrinology recommendations. CT imaging reviewed and notes negative CT head and chronic left sphenoid sinusitis. 2199 --Case discussed with [facility] endocrinology who agrees with plan for D10 at 100 cc/hour. They confirm that patient is taking Humalog or lispro through her insulin pump and usually receives 40 to 50 units daily. They agree with not using her pump at this time and for patient or family member to call the pump guest services representative to guide her through whether the pump is malfunctioning or if she needs a new pump. Dr. Bourgeois updated on endocrinology recommendations. He will admit to ICU for close glucose monitoring. Glucose 113. Medical Records Medical records reviewed: Yes I reviewed the patient's medical records. Imaging Data Radiologic Study: Radiologist's impression: CT Head Without Contrast Exam date and time: 09/21/2022 8:20 PM Age: 67 years old Clinical indication: Altered mental status/memory loss; Chronic; Patient HX: Change in mental status, HX of L sinusitis TECHNIQUE: Imaging protocol: Computed tomography of the head without contrast. Radiation optimization: All CT scans at this facility use at least one of these dose optimization techniques: automated exposure control; mA and/or kV adjustment per patient size (includes targeted exams where dose is matched to clinical indication); or iterative reconstruction. COMPARISON: MR BRAIN WO 07/23/2021 7:56 AM FINDINGS: Brain: Normal. No hemorrhage. Unremarkable white matter. No mass effect. Cerebral ventricles: No ventriculomegaly. Paranasal sinuses: Visualized sinuses are unremarkable. No fluid levels. Mastoid air cells: Visualized mastoid air cells are well aerated. Bones/joints: Unremarkable. No acute fracture. Soft tissues: Unremarkable. IMPRESSION: No acute intracranial abnormality. CT Maxillofacial Without Contrast, Sinus Exam date and time: 09/21/2022 8:20 PM Age: 67 years old Clinical indication: Altered mental status/memory loss; Chronic; Patient HX: Change in mental status, HX of L sinusitis TECHNIQUE: Imaging protocol: CT Maxillofacial without contrast. Focus on the sinuses. Radiation optimization: All CT scans at this facility use at least one of these dose optimization techniques: automated exposure control; mA and/or kV adjustment per patient size (includes targeted exams where dose is matched to clinical indication); or iterative reconstruction. COMPARISON: MR BRAIN WO 07/23/2021 7:56 AM FINDINGS: Frontal sinuses: Normal. No air-fluid levels. Ethmoid sinuses: Normal. No air-fluid levels. Sphenoid sinuses: Normal. No air-fluid levels. Maxillary sinuses:? Chronic left maxillary sinusitis. No air-fluid levels. Ostiomeatal units are patent. Nasal cavity: Unremarkable. Orbital cavities: Orbits are normal. Globes are unremarkable. Bones/joints: Unremarkable. Soft tissues: Unremarkable. IMPRESSION: No acute findings Chronic left sphenoid sinusitis XR Chest Exam date and time: 09/21/2022 8:31 PM Age: 67 years old Clinical indication: Other: AMS, hypoglycemia TECHNIQUE: Imaging protocol: Radiologic exam of the chest. Views: 2 views. COMPARISON: CR XR CHEST 2V PA LATERAL 08/05/2022 11:13 AM FINDINGS: Lungs: Unremarkable. No consolidation. Pleural spaces: Unremarkable. No pleural effusion. No pneumothorax. Heart/Mediastinum:? Tortuous aorta. No cardiomegaly. Bones/joints: Unremarkable. IMPRESSION: No acute findings. Lab Data Lab results reviewed: Yes I reviewed the patient's lab results. Labs: Laboratory Tests Range/Units 09/21/22 09/21/22 09/21/22 19:00 19:00 19:40 WBC (4.4-10.8) 10^3/uL 9.31 RBC (3.93-5.22) 10^6/uL 4.08 Hgb (11.2-15.7) g/dL 12.7 Hct (36.0-46.0) % 37.6 MCV (80-95) fL 92 MCH (27.0-33.0) pg 31.1 MCHC (32.0-36.0) % 33.8 RDW (11.7-14.6) % 12.9 Plt Count (130-400) 10^3/uL 230 MPV (8.0-11.0) fL 10.6 Immature Gran % 0.3 Neutrophils % 78.5 Lymphocytes % 11.4 Monocytes % 4.9 Eosinophils % 4.5 Basophils % 0.4 Nucleated RBC % (0.0-0.3) % 0.0 Absolute Neutrophils (1.2-6.7) 10^3/uL 7.30 H Absolute Lymphocytes (1.2-3.4) 10^3/uL 1.06 L Absolute Monocytes (0.1-0.8) 10^3/uL 0.46 Absolute Eosinophils (0.0-0.7) 10^3/uL 0.42 Absolute Basophils (0.0-0.2) 10^3/uL 0.04 Sodium (136-145) mmol/L 140 Potassium (3.5-5.1) mmol/L 3.8 Chloride (98-107) mmol/L 107 Carbon Dioxide (21.0-32.0) mmol/L 23.7 Anion Gap (3-11) mmol/L 9.3 BUN (7-18) mg/dL 26 H Creatinine (0.55-1.02) mg/dL 0.8 Est GFR (CKD-EPI 2020) (mL/min/1.73m2) 81.72 Glucose (74-106) mg/dL 87 Calcium (8.5-10.1) mg/dL 9.3 Magnesium (1.8-2.4) mg/dL 1.7 L Total Bilirubin (0.2-1.0) mg/dL 0.3 AST (15-37) U/L 36 ALT (14-59) U/L 35 Alkaline Phosphatase (46-116) U/L 70 Troponin I (<or=60) ng/L < 50 Total Protein (6.4-8.2) g/dL 6.4 Albumin (3.4-5.0) g/dL 3.3 L Urine Color (Yellow) Urine Clarity (Clear) Urine pH (5-8) Ur Specific Bill[place] (1.005-1.025) Urine Protein (Negative) mg/dL Urine Ketones (Negative) mg/dL Urine Blood (Negative) Urine Nitrite (Negative) Urine Bilirubin (Negative) Urine Urobilinogen (Up to 0.2) mg/dL Ur Leukocyte Esterase (Negative) Urine RBC (0-2) HPF Urine WBC (0-5) HPF Ur Epithelial Cells (Negative) HPF Urine Crystals (Negative) HPF Urine Bacteria (Negative) HPF Urine Casts (Negative) LPF Urine Mucus (Negative) Urine Other (Negative) Ur Culture Indicated? Urine Glucose (Negative) mg/dL Urine Opiates Screen (Negative) Negative Urine Methadone Screen (Negative) Negative Ur Barbiturates Screen (Negative) Negative Ur Tricyclics Screen (Negative) Negative Ur Amphetamines Screen (Negative) Negative U Benzodiazepines Scrn (Negative) Negative Urine Cocaine Screen (Negative) Negative Ur THC Screen (Negative) Negative Ethyl Alcohol (<10) mg/dL < 3.0 Range/Units 09/21/22 19:40 WBC (4.4-10.8) 10^3/uL RBC (3.93-5.22) 10^6/uL Hgb (11.2-15.7) g/dL Hct (36.0-46.0) % MCV (80-95) fL MCH (27.0-33.0) pg MCHC (32.0-36.0) % RDW (11.7-14.6) % Plt Count (130-400) 10^3/uL MPV (8.0-11.0) fL Immature Gran % Neutrophils % Lymphocytes % Monocytes % Eosinophils % Basophils % Nucleated RBC % (0.0-0.3) % Absolute Neutrophils (1.2-6.7) 10^3/uL Absolute Lymphocytes (1.2-3.4) 10^3/uL Absolute Monocytes (0.1-0.8) 10^3/uL Absolute Eosinophils (0.0-0.7) 10^3/uL Absolute Basophils (0.0-0.2) 10^3/uL Sodium (136-145) mmol/L Potassium (3.5-5.1) mmol/L Chloride (98-107) mmol/L Carbon Dioxide (21.0-32.0) mmol/L Anion Gap (3-11) mmol/L BUN (7-18) mg/dL Creatinine (0.55-1.02) mg/dL Est GFR (CKD-EPI 2020) (mL/min/1.73m2) Glucose (74-106) mg/dL Calcium (8.5-10.1) mg/dL Magnesium (1.8-2.4) mg/dL Total Bilirubin (0.2-1.0) mg/dL AST (15-37) U/L ALT (14-59) U/L Alkaline Phosphatase (46-116) U/L Troponin I (<or=60) ng/L Total Protein (6.4-8.2) g/dL Albumin (3.4-5.0) g/dL Urine Color (Yellow) Yellow Urine Clarity (Clear) Clear Urine pH (5-8) 5.5 Ur Specific Billings (1.005-1.025) >= 1.030 H Urine Protein (Negative) mg/dL 30 H Urine Ketones (Negative) mg/dL Trace H Urine Blood (Negative) Negative Urine Nitrite (Negative) Negative Urine Bilirubin (Negative) Negative Urine Urobilinogen (Up to 0.2) mg/dL 0.2 Ur Leukocyte Esterase (Negative) Negative Urine RBC (0-2) HPF 0-2 Urine WBC (0-5) HPF 0-2 Ur Epithelial Cells (Negative) HPF Rare Urine Crystals (Negative) HPF Negative Urine Bacteria (Negative) HPF Negative Urine Casts (Negative) LPF Negative Urine Mucus (Negative) Negative Urine Other (Negative) Negative Ur Culture Indicated? No Urine Glucose (Negative) mg/dL 500 H Urine Opiates Screen (Negative) Urine Methadone Screen (Negative) Ur Barbiturates Screen (Negative) Ur Tricyclics Screen (Negative) Ur Amphetamines Screen (Negative) U Benzodiazepines Scrn (Negative) Urine Cocaine Screen (Negative) Ur THC Screen (Negative) Ethyl Alcohol (<10) mg/dL ECG Data Attestation: I personally reviewed and interpreted this ECG (s) as follows: Interpretation: rate of 76, sinus, no stemi. Sign Out Sign Out Data: Sign Out Comment: Insulin-dependent diabetic with mental status change associated with hypoglycemia. Question malfunctioning insulin pump. Please follow-up diagnostic studies and reevaluate. Last updated by Torsten Ward MD at 09/21/22 19:26 Discharge Plan Disposition Patient Disposition: Admit to [facility] Condition: Stable Discharge Details Clinical Impression: Hypoglycemia, Insulin dependent diabetes mellitus Admit Date/Time: 09/21/22 22:19 Admit Provider: Maninder Giang Attending Provider: Maninder Giang Primary Care Provider: Mitchell Yap ED Provider: Jennifer Freeman
--- NOTE | 2022-09-21 20:35 | DI.VRAD_ITS ---
PROCEDURE INFORMATION: Exam: CT Head Without Contrast Exam date and time: 09/21/2022 8:20 PM Age: 67 years old Clinical indication: Altered mental status/memory loss; Chronic; Patient HX: Change in mental status, HX of L sinusitis TECHNIQUE: Imaging protocol: Computed tomography of the head without contrast. Radiation optimization: All CT scans at this facility use at least one of these dose optimization techniques: automated exposure control; mA and/or kV adjustment per patient size (includes targeted exams where dose is matched to clinical indication); or iterative reconstruction. COMPARISON: MR BRAIN WO 07/23/2021 7:56 AM FINDINGS: Brain: Normal. No hemorrhage. Unremarkable white matter. No mass effect. Cerebral ventricles: No ventriculomegaly. Paranasal sinuses: Visualized sinuses are unremarkable. No fluid levels. Mastoid air cells: Visualized mastoid air cells are well aerated. Bones/joints: Unremarkable. No acute fracture. Soft tissues: Unremarkable. IMPRESSION: No acute intracranial abnormality. PROCEDURE INFORMATION: Exam: CT Maxillofacial Without Contrast, Sinus Exam date and time: 09/21/2022 8:20 PM Age: 67 years old Clinical indication: Altered mental status/memory loss; Chronic; Patient HX: Change in mental status, HX of L sinusitis TECHNIQUE: Imaging protocol: CT Maxillofacial without contrast. Focus on the sinuses. Radiation optimization: All CT scans at this facility use at least one of these dose optimization techniques: automated exposure control; mA and/or kV adjustment per patient size (includes targeted exams where dose is matched to clinical indication); or iterative reconstruction. COMPARISON: MR BRAIN WO 07/23/2021 7:56 AM FINDINGS: Frontal sinuses: Normal. No air-fluid levels. Ethmoid sinuses: Normal. No air-fluid levels. Sphenoid sinuses: Normal. No air-fluid levels. Maxillary sinuses: Chronic left maxillary sinusitis. No air-fluid levels. Ostiomeatal units are patent. Nasal cavity: Unremarkable. Orbital cavities: Orbits are normal. Globes are unremarkable. Bones/joints: Unremarkable. Soft tissues: Unremarkable. IMPRESSION: No acute findings Chronic left sphenoid sinusitis Dictated and Authenticated by: Rudolph Russell MD. Ordering:CARTER Sarmiento MD
--- NOTE | 2022-09-21 20:37 | DI.VRAD_ITS ---
PROCEDURE INFORMATION: Exam: XR Chest Exam date and time: 09/21/2022 8:31 PM Age: 67 years old Clinical indication: Other: AMS, hypoglycemia TECHNIQUE: Imaging protocol: Radiologic exam of the chest. Views: 2 views. COMPARISON: CR XR CHEST 2V PA LATERAL 08/05/2022 11:13 AM FINDINGS: Lungs: Unremarkable. No consolidation. Pleural spaces: Unremarkable. No pleural effusion. No pneumothorax. Heart/Mediastinum: Tortuous aorta. No cardiomegaly. Bones/joints: Unremarkable. IMPRESSION: No acute findings. Dictated and Authenticated by: Rudolph Russell MD. Ordering:CARTER Sarmiento MD
[2022-09-21] MEDS: LORazepam 2 MG/ML VIAL 0.5 MG IVP (20:38)
--- NOTE | 2022-09-21 21:23 | NUR.NOTE ---
Nursing Note: 1900: upon arrival report from EMS 500ml D10 given IV, 4mg zofran IV.
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
[2022-09-21 22:31] LABS: Troponin I < 50 ng/L (<or=60)
[2022-09-21] MEDS: DEXTROSE 10%-WATER 500 ML 125 ML IV (23:16)
[2022-09-22] VITALS (36 sets, daily range): BP systolic 99–154; BP diastolic 39–124; PULSE 76–99; RESP 13–22; TEMP 36.8–37.6; O2SAT 96–100
[2022-09-22] MEDS: Dexlansoprazole 30 MG CAP PO ×2 (00:07→22:00)
[2022-09-22] MEDS: Lisinopril 20 MG TAB 10 MG PO ×2 (00:08→22:00)
[2022-09-22] MEDS: Acetaminophen 325 MG TAB PO (00:08)
[2022-09-22] MEDS: Atorvastatin 20 MG TAB PO ×2 (00:08→22:00)
[2022-09-22] MEDS: Multivitamin TAB 1 TAB PO ×2 (00:08→22:02)
[2022-09-22] MEDS: Enoxaparin 40 MG/0.4 ML SYR SC (02:07)
[2022-09-22] MEDS: Insulin Aspart 300 UNITS/3 ML PEN SC ×7 (02:10→17:07)
[2022-09-22 06:00] LABS: HCT 35.5 % (36.0-46.0); MCH 30.9 pg (27.0-33.0); MCHC 33.8 % (32.0-36.0); MCV 92 fL (80-95); Platelet Count 223 10^3/uL (130-400); RBC 3.88 10^6/uL (3.93-5.22); RDW 12.9 % (11.7-14.6); RDW-SD 42.6 fL; WBC 7.16 10^3/uL (4.4-10.8)
[2022-09-22 06:15] LABS: ALT 37 U/L (14-59); AST 32 U/L (15-37); Albumin 3.1 g/dL (3.4-5.0); Alkaline Phosphatase 109 U/L (46-116); Anion Gap 7.7 mmol/L (3-11); BUN 19 mg/dL (7-18); Bilirubin, Total 0.3 mg/dL (0.2-1.0); CO2 26.3 mmol/L (21.0-32.0); CREATININE 0.9 mg/dL (0.55-1.02); Calcium 9.6 mg/dL (8.5-10.1); Chloride 107 mmol/L (98-107); Estimated GFR 70.95 (mL/min/1.73m2); Glucose 131 mg/dL (74-106); Potassium 3.8 mmol/L (3.5-5.1); Sodium 141 mmol/L (136-145); Total Protein 5.9 g/dL (6.4-8.2)
--- NOTE | 2022-09-22 09:50 | INITIAL_ITS ---
- If Service Date Differs Date of service: 09/22/22 Time of Service: 09:50 Care Management Initial Assess REASON FOR HOSPITALIZATION:: Hypoglycemia, IDDM PAST MEDICAL HISTORY/PAST SURGICAL HISTORY:: All Active Problems . Hypoglycemia (Acute). Pharyngoesophageal dysphagia (Acute). Chronic left maxillary sinusitis (Acute). Insulin dependent diabetes mellitus (Chronic). Hypertension (Chronic). Asthma (Chronic). Status post cataract extraction and insertion of intraocular lens of right eye (Chronic 10/23/18). Status post cataract extraction and insertion of intraocular lens of left eye (Chronic 11/06/18). Right flank pain (Acute). Urgency incontinence (Acute). Mild cognitive impairment (Acute). Nail dystrophy (Acute). Medical History . Alcohol abuse. Asthma, intermittent. Back pain. thoracic region. Cataract. bilateral. Depression with anxiety. Diabetes mellitus type 1. pump in situ. Dysphagia, pharyngeal phase. Edema. GERD (gastroesophageal reflux disease). Hearing loss in right ear. Hx of adenomatous colonic polyps. Hypertension. Intermittent palpitations. Pt. states this is not current. Osteoporosis. Pain in joints of left hand. Pain in joints of right hand. Raynaud phenomenon. Strain of thoracic back region. Trigger finger of left thumb. Trigger finger, right index finger. Urinary incontinence. Surgical History . History of carpal tunnel release. 12/26/1987 (complicated by median nerve) left middle finger trigger release. History of section. x2 ( and ). History of surgical removal of pilonidal cyst PREVIOUS FUNCTIONAL STATUS/SOCIAL/FAMILY SUPPORTS:: Ebonie lives in [place], [place] with her Corona. 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 Ebonie and Issa have 2 daughters. One daughter still lives in [place], [place] and the other is in [place]. They also have 3 grandchildren. ebonie is independent at baseline and does not receive any community services. CURRENT FUNCTIONAL STATUS:: Ebonie was sitting up in bed when CM met with her. She engaged easily with CM and was agreeable to conversation. Ebonie talked a bit about her diabetes and the insulin pump that she has. She shared that she had another one, same make and model, that mallfunctioned after 2 years and was replaced by the current one. The company, [employer], is working with her to try to evaluate whether this one is functioning properly ar this times. She believes that it is not working right and is the reason she has had such high blood sugare. Ebonie shared that she and her had planned to take a trip out west last yesr but had to postpone it due to an accident her had. They plan to embark on this journey in mid-October. [facility] will [facility] the [facility] and the [facility]. She admitted that she is really looking forward to the trip. They plan to be gone at least 3-4 weeks. ADVANCE DIRECTIVES:: On file. Corona RODRIGUEZ. Has patient been provided with info about the portal/API?: Yes Did the patient sign up for the portal?: Yes (previously) CODE STATUS:: Full Code INSURANCE COVERAGE / FINANCIAL ISSUES:: BC BS. Medicaid CURRENT HOME/COMMUNITY SERVICES/EQUIPMENT:: Insulin pump and CGM PRIMARY CARE PHYSICIAN:: Mitchell Yap POTENTIAL DISCHARGE NEEDS:: follow up with PCP as welll as [facility] providers PATIENT/FAMILY EDUCATION NEEDS:: Review of discharge instructions, activity, limitations, medications, diet, discuss Ask Me Three TRANSPORTATION:: via private vehicle with family PLAN:: Anticipate Ebonie will discharge home with no new services. She will follow up with her community providers and plan of care and transport with family. CM will follow and assess for discharge needs.
[2022-09-22] MEDS: Normal Saline Flush 10 ML SYR IVP (09:54)
[2022-09-22] MEDS: Insulin Glargine 300 UNITS/3 ML PEN 15 UNITS SC (12:09)
--- NOTE | 2022-09-22 13:48 | CHAPLAIN ---
Ebonie and I know each other from when her father was a patient here several years ago. She is resting in bed and her Corona is visiting when I stopped in this morning. Ebonie is a member of the [employer], and she gave me permission to let her engineering assistant, Rev. Frank Canales know that she is here. Ebonie is very pleasant and easily engages in a conversation. She is dealing with issues around her diabetes. I will continue to visit.
[2022-09-22] MEDS: Dextrose 50%-Water 25 GM/50 ML SYR IVP (14:58)
--- NOTE | 2022-09-22 16:00 | W.PM.PROGNOT ---
Date of Service Date of service: 09/22/22 Time of Service: 16:07 Assessment and Plan Assessment and plan (1) Hypoglycemia: Start date: 09/21/22 Status: Acute Assessment and plan: This is a 67-year-old lady who was found to have altered mental status and persistent hypoglycemia at home on insulin pump for insulin-dependent diabetes mellitus. She is seen by [facility] for her diabetes and they were consulted in the ED with advised to continue D10W infusion overnight and then reassess insulin pump function and needs in the morning. The patient feels that her insulin pump was malfunctioning. She was admitted to ICU for glucose monitoring on D10NS and SS insulin correction when needed. D10NS was stopped this AM, she ate breakfast and are monitoring gluocse Q1H until stabilized. [employer] footwear sales representative contacted and a part is being overnighted to her home and a family member will bring it in for more diagnostics by [employer] tomorrow. (2) Insulin dependent diabetes mellitus: Status: Chronic Assessment and plan: As above.. (3) Hypertension: Status: Chronic Assessment and plan: Continue usual outpatient medical therapy adjusting as needed during her hospital stay. (4) Asthma: Status: Chronic Assessment and plan: Continue usual outpatient therapy as needed. Patient is having no evidence of expiratory wheeze on exam at admission. Subjective Subjective Patient reports: no new complaints, tolerating a regular diet and afebrile; denies nausea, vomiting or shortness of breath Exam Narrative Exam Narrative: General: Pt standing by bedside. NAD HEENT: MMM. Sclera clear. Neck: Supple without JVD. Lungs: Clear. Nonlabored breathing. Heart: Regular rate and rhythm with soft systolic murmur Abdomen: Normal contour, soft and nontender to palpation Extremity: Without clubbing, cyanosis or pitting edema. No calf tenderness. Skin: Normal color, warm and dry. No rashes. Neuro: No focalized motor deficits and no tremor. Psych: Normal affect and mood. No abnormal thought processes. Remote and recent memory intact. Objective Last Vital Signs Temp 37.6 C H 09/22/22 12:15 Pulse 99 H 09/22/22 14:47 Resp 20 09/22/22 08:55 BP 128/57 L 09/22/22 14:47 Pulse Ox 99 09/22/22 15:00 Laboratory Results - last 24 hr 09/21/22 09/21/22 09/21/22 19:00 19:00 19:40 WBC 9.31 RBC 4.08 Hgb 12.7 Hct 37.6 MCV 92 MCH 31.1 MCHC 33.8 RDW 12.9 Plt Count 230 MPV 10.6 Immature Gran % 0.3 Neutrophils % 78.5 Lymphocytes % 11.4 Monocytes % 4.9 Eosinophils % 4.5 Basophils % 0.4 Nucleated RBC % 0.0 Absolute Neutrophils 7.30 H Absolute Lymphocytes 1.06 L Absolute Monocytes 0.46 Absolute Eosinophils 0.42 Absolute Basophils 0.04 Sodium 140 Potassium 3.8 Chloride 107 Carbon Dioxide 23.7 Anion Gap 9.3 BUN 26 H Creatinine 0.8 Est GFR (CKD-EPI 2020) 81.72 Glucose 87 Calcium 9.3 Magnesium 1.7 L Total Bilirubin 0.3 AST 36 ALT 35 Alkaline Phosphatase 70 Troponin I < 50 Total Protein 6.4 Albumin 3.3 L Urine Color Urine Clarity Urine pH Ur Specific Dent Urine Protein Urine Ketones Urine Blood Urine Nitrite Urine Bilirubin Urine Urobilinogen Ur Leukocyte Esterase Urine RBC Urine WBC Ur Epithelial Cells Urine Crystals Urine Bacteria Urine Casts Urine Mucus Urine Other Ur Culture Indicated? Urine Glucose Urine Opiates Screen Negative Urine Methadone Screen Negative Ur Barbiturates Screen Negative Ur Tricyclics Screen Negative Ur Amphetamines Screen Negative U Benzodiazepines Scrn Negative Urine Cocaine Screen Negative Ur THC Screen Negative Ethyl Alcohol < 3.0 09/21/22 09/21/22 09/22/22 19:40 22:05 05:30 WBC RBC Hgb Hct MCV MCH MCHC RDW Plt Count MPV Immature Gran % Neutrophils % Lymphocytes % Monocytes % Eosinophils % Basophils % Nucleated RBC % Absolute Neutrophils Absolute Lymphocytes Absolute Monocytes Absolute Eosinophils Absolute Basophils Sodium 141 Potassium 3.8 Chloride 107 Carbon Dioxide 26.3 Anion Gap 7.7 BUN 19 H Creatinine 0.9 Est GFR (CKD-EPI 2020) 70.95 Glucose 131 H Calcium 9.6 Magnesium Total Bilirubin 0.3 AST 32 ALT 37 Alkaline Phosphatase 109 Troponin I < 50 Total Protein 5.9 L Albumin 3.1 L Urine Color Yellow Urine Clarity Clear Urine pH 5.5 Ur Specific Dent >= 1.030 H Urine Protein 30 H Urine Ketones Trace H Urine Blood Negative Urine Nitrite Negative Urine Bilirubin Negative Urine Urobilinogen 0.2 Ur Leukocyte Esterase Negative Urine RBC 0-2 Urine WBC 0-2 Ur Epithelial Cells Rare Urine Crystals Negative Urine Bacteria Negative Urine Casts Negative Urine Mucus Negative Urine Other Negative Ur Culture Indicated? No Urine Glucose 500 H Urine Opiates Screen Urine Methadone Screen Ur Barbiturates Screen Ur Tricyclics Screen Ur Amphetamines Screen U Benzodiazepines Scrn Urine Cocaine Screen Ur THC Screen Ethyl Alcohol 09/22/22 05:30 WBC 7.16 RBC 3.88 L Hgb 12.0 Hct 35.5 L MCV 92 MCH 30.9 MCHC 33.8 RDW 12.9 Plt Count 223 MPV 11.0 Immature Gran % Neutrophils % Lymphocytes % Monocytes % Eosinophils % Basophils % Nucleated RBC % Absolute Neutrophils Absolute Lymphocytes Absolute Monocytes Absolute Eosinophils Absolute Basophils Sodium Potassium Chloride Carbon Dioxide Anion Gap BUN Creatinine Est GFR (CKD-EPI 2020) Glucose Calcium Magnesium Total Bilirubin AST ALT Alkaline Phosphatase Troponin I Total Protein Albumin Urine Color Urine Clarity Urine pH Ur Specific Dent Urine Protein Urine Ketones Urine Blood Urine Nitrite Urine Bilirubin Urine Urobilinogen Ur Leukocyte Esterase Urine RBC Urine WBC Ur Epithelial Cells Urine Crystals Urine Bacteria Urine Casts Urine Mucus Urine Other Ur Culture Indicated? Urine Glucose Urine Opiates Screen Urine Methadone Screen Ur Barbiturates Screen Ur Tricyclics Screen Ur Amphetamines Screen U Benzodiazepines Scrn Urine Cocaine Screen Ur THC Screen Ethyl Alcohol Time Spent with Patient Time Spent with Patient: 25-34 minutes Time was spent: preparing to see the patient(eg.review tests), obtaining and/or reviewing separately otained hiistory, ordering medications,tests, procedures, referring, communicating with other health home care attendant and indepentently interpreting results
--- NOTE | 2022-09-22 16:19 | TELEP.MEDREC ---
Date of service: 09/22/22 Time of Service: 16:19 Telepharmacy Home Med Rec Allergies Allergies: Penicillins Allergy (Severe, Unverified 09/20/22 14:16) Anaphylaxis prochlorperazine Allergy (Severe, Unverified 09/09/22 07:22) Other (See Comment) naproxen Allergy (Mild, Unverified 09/20/22 14:16) Unknown Interview Person Interviewed: PATIENT Quality Quality of Interview/Accuracy of Medication List: Good Sources Sources used to compile medication list: [employer] Medication List, Patient List and [employer] Changes made to Home Medication List: ADDITIONS: Ibuprofen 200mg take 3 tablets = 600mg at bedtime DELETIONS: Miralxa, Glucagon discontinued product unavailable CHANGES: Glucagon added currently available product Additional Notes Additional Notes: Patient is not really sure how much insulin her pump requires each day Recommended Changes Recommended Changes(reason for recommendation): none Attestation: The home medication list is now updated to the best of my knowledge and is ready to be reconciled by the provider. Please contact the TelePharmacy Medication Reconciliation Pharmacist at for any questions.
[2022-09-23] VITALS (10 sets, daily range): BP systolic 117–141; BP diastolic 50–96; PULSE 79–107; RESP 16–18; TEMP 36.2–37; O2SAT 96–98
[2022-09-23] MEDS: Insulin Aspart 300 UNITS/3 ML PEN SC ×7 (02:08→23:20)
[2022-09-23 07:01] LABS: Magnesium 1.9 mg/dL (1.8-2.4)
[2022-09-23 07:05] LABS: Anion Gap 8.2 mmol/L (3-11); BUN 16 mg/dL (7-18); CO2 27.8 mmol/L (21.0-32.0); Calcium 9.5 mg/dL (8.5-10.1); Chloride 104 mmol/L (98-107); Estimated GFR 62.52 (mL/min/1.73m2); Glucose 307 mg/dL (74-106); Potassium 4.2 mmol/L (3.5-5.1); Sodium 140 mmol/L (136-145)
[2022-09-23] MEDS: Insulin Glargine 300 UNITS/3 ML PEN 15 UNITS SC (08:50)
[2022-09-23] MEDS: Normal Saline Flush 10 ML SYR IVP ×2 (08:51→21:12)
--- NOTE | 2022-09-23 09:11 | PGE_ITS ---
Date of Service Date of service: 09/23/22 Time of Service: 09:11 Assessment and Plan Assessment and plan (1) Hypoglycemia: Status: Acute Assessment and plan: continue Lantus this morning but will be important to get her current setting for her pump to set her basal levels and to determine her meal coverage. cont. to monitor glucose q4hr; when her replacment device arrives, I will go over her settings w/ the [employer] rep. I will also ask DM educator to see her and to follow up w/ her as outpatient to help coordinate her care w/ [facility] endocrinology Professional time spent interviewing and examining patient, discussion of goals of care with hospital team (care management, nursing and consulting professionals) was 15 minutes. (2) Insulin dependent diabetes mellitus: Status: Chronic Assessment and plan: As above.. (3) Hypertension: Status: Chronic Assessment and plan: Continue usual outpatient medical therapy adjusting as needed during her [facility] stay. (4) Asthma: Status: Chronic Assessment and plan: Continue usual outpatient therapy as needed. Patient is having no evidence of expiratory wheeze on exam at admission. Subjective Subjective Interval history since last seen: 67 yr old type I DM (since age 7 yr old) who has been managed on insulin pump ([employer]tronic [id number]) and a CGM monitor who presented to the hospital w/ refractory hypoglycemia. Unclear whether pump failure or she may have been miscalculating her carbs at meal time (per her thoughts). Her hypoglycemia has resolved and she is now off the D10 drip. We are awaiting for replacement for her pump to come in which was suppose to be overnight express delivered to her who will bring it in when it arrives today. She is followed by endocrinoloigist, Dr. Costello, an endocrine fellow at [facility]. She has not been followed by any sales representative printing. I told her that we would consult w/ our sales representative printing who can follow her as outpatient and coordinate care w/ her supervisor maintenance. Exam Narrative Exam Narrative: Ebonie is alert, oriented, pleasant Lungs: clear Heart: RRR no murmur, rub or gallop Legs/feet: good pulses, no sores Objective Last Vital Signs Temp 37.0 C 09/23/22 08:16 Pulse 107 H 09/23/22 07:16 Resp 18 09/23/22 04:23 BP 132/96 H 09/23/22 07:16 Pulse Ox 97 09/23/22 08:16 Laboratory Results - last 24 hr 09/23/22 09/23/22 06:30 06:30 Sodium 140 Potassium 4.2 Chloride 104 Carbon Dioxide 27.8 Anion Gap 8.2 BUN 16 Creatinine 1.0 Est GFR (CKD-EPI 2020) 62.52 Glucose 307 H Calcium 9.5 Magnesium 1.9 Time Spent with Patient Time Spent with Patient: <25 minutes Time was spent: preparing to see the patient(eg.review tests), obtaining and/or reviewing separately otained hiistory, indepentently interpreting results, counseling the patient and care coordination
--- NOTE | 2022-09-23 09:36 | PDOC.CMPRO ---
- If Service Date Differs Date of service: 09/23/22 Time of Service: 09:36 Care Management Progress Note S/O: A: Ebonie is a 67 year old woman admitted on 09/21/22 with hyperglycemia P:Anticipate Ebonie will discharge home with no new services. She will follow up with her community providers and plan of care and transport with family. CM will follow and assess for discharge needs. cc:
--- NOTE | 2022-09-23 12:54 | DM INPTCON_ITS ---
Date of service: 09/23/22 Time of Service: 12:54 Diabetes Inpatient Consult Reason for Visit: DM1 DESCRIPTION/ASSESSMENT: Met wtih Ebonie in ICU. She was admitted with hypoglycemia after her medtronic insulin pump malfunctioned while she was not using her medtronic CGM. A1C (04/17/22): 7.4%. Uses 2-3 units novolog q hour. Ebonie explained that her blood sugars had been going up last couple of days (often in 300s), so she bolus dosed but did not see BS decline. Receiving new pump today and most likely will discharge home. [place] app[place] [facility] [place]. INTERVENTION: Reviewed carb counting and dosing for elevated blood sugars. Also contacted [employer] Ice Cream Man Luma Curtis that lives in [facility] and can follow up in home setting. PLAN: Provided contact information if needs diabetes self management education in outpatient setting. Time Spent in Nutritional Counseling and Treatment: 20
--- NOTE | 2022-09-23 16:36 | CHAPLAIN ---
Ebonie was visited today by her um specialist, Rev. Frank Walker of the [facility].
[2022-09-23] MEDS: Milk of Magnesia 30 ML CUP PO (17:04)
[2022-09-23] MEDS: Atorvastatin 20 MG TAB PO (21:12)
[2022-09-23] MEDS: Dexlansoprazole 30 MG CAP PO (21:12)
[2022-09-23] MEDS: Lisinopril 20 MG TAB 10 MG PO (21:13)
[2022-09-23] MEDS: Multivitamin TAB 1 TAB PO (21:14)
[2022-09-24] MEDS: Insulin Aspart 300 UNITS/3 ML PEN SC ×2 (03:00→06:26)
[2022-09-24 04:00] VITALS: BP 137/66; PULSE 79; PULSE 82; RESP 18; TEMP 36.3; O2SAT 99
--- NOTE | 2022-09-24 08:47 | W.PM.PROGNOT ---
Date of Service Date of service: 09/24/22 Time of Service: 08:47 Assessment and Plan Assessment and plan (1) Hypoglycemia: Status: Acute Assessment and plan: all exogenous insulin given per [facility] has been put on suspension. Patient is now on her insulin pump at her set basal rates and based on her programmed carb coverage. Her CHO coverage also varies w/ time of day but varies between 1:13 to 1:14 insulin:CHO I have placed call to [facility] endocrine to discuss her case w/ them so we can set new basal dosing to prevent nocturnal hypoglycemia. I think that her nocturnal basal rate needs lowered. I think that the morning and afternoon and early evening rates are ok. I also am concerned that she is so obsessed about her glucose readings not going high that she is bolusing herself at inappropriate times, i.e. at bedtime which also contributes to her nocturnal hypoglycemia Professional time spent interviewing and examining patient, discussion of goals of care with hospital team (care management, nursing and consulting professionals) was 60 minutes. (2) Insulin dependent diabetes mellitus: Status: Chronic Assessment and plan: As above.. (3) Hypertension: Status: Chronic Assessment and plan: Continue usual outpatient medical therapy adjusting as needed during her hospital stay. (4) Asthma: Status: Chronic Assessment and plan: Continue usual outpatient therapy as needed. Patient is having no evidence of expiratory wheeze on exam at admission. Subjective Subjective Interval history since last seen: Patient had variable low glucose readings last night but none severe enough to require D10. Patient reprogrammed her insulin pump herself yesterday and also gave herself boluses at supper and again during the evening at bedtime. It was reported off to me that her pump was stopped last night and SSI novolog was resumed. However, I reviewed all of her glucose readings overnight since her insulin pump was resumed at 14:49 yesterday. I also went over her basal rates and the boluses she was getting. See objective section for details of her glucose readings and insulin doses. Objective Last Vital Signs Temp 36.3 C L 09/24/22 04:00 Pulse 79 09/24/22 04:00 Resp 18 09/24/22 04:00 BP 137/66 09/24/22 04:00 Pulse Ox 99 09/24/22 04:00 Objective Narrative Objective Narrative: Time glucose reading Insulin dose (basal/bolus) 14:49 267 (@ 13:46) basal pump resumed (patient changed her basal settings to as follows: 6 am-10 am: 0.4 units/h; 10 am-2400: 0.50 units/hr; 24:00 to 04:00 0.425 units/h; 04:00-06:00 15:43 0.475 units per hr 15:51 16:21 186 17:15 192 2 unit bolus 20:04 117 21:10 91 @ 21:03, 81 @ 21:26 21:35 81 21:36 23:18 218 2 unit given per [facility] MAR @ 23:20, patient self bolused 2.2 units @ 23:44 01:05 02:54 184 2 units given per [facility] @ 03:00 03:48 188 06:20 154 1 unit given per [facility] @ 06:00 08:01 126 (117 per [facility] monitor) Time Spent with Patient Time Spent with Patient: >50 minutes Time was spent: preparing to see the patient(eg.review tests), obtaining and/or reviewing separately otained hiistory, referring, communicating with other health medicare compliance auditor, indepentently interpreting results, counseling the patient and care coordination
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
--- NOTE | 2022-09-24 14:12 | PDOC.CMDIS ---
- If Service Date Differs Date of service: 09/24/22 Time of Service: 14:12 LACE Index Scoring Tool - Questions: Length of Stay (in days): 3 Acuity (Admit via E.D.?): Yes Comorbidities: Diabetes w/o Complication E.D. Visits: 2 - Answers: Total Score: 9 Risk of Readmission: Low Risk Care Management Discharge Reason for Hospitalization: Hypoglycemia, IDDM Discharge Plan: Ebonie will discharge home with no new services. She will follow up with her community providers and plan of care and transport with her . Patient/Family Education Needs: Review of discharge instructions, activity, limitations, medications, diet, discuss Ask Me Three
== END 2022-09-24 15:00 | disposition home or self-care (01) | DRG 639 ==
LOC: ER 23:17 → ICU 23:30
PROVIDERS: Emergency Medicine; Family Medicine; Admitting Provider Family Medicine; Emergency Provider Physician Assistant; PCP Internal Medicine; Visit Provider Family Medicine
DX: E10.649 Type 1 diabetes mellitus with hypoglycemia without coma (principal); Z79.4 Long term (current) use of insulin; Z96.41 Presence of insulin pump (external) (internal); I10 Essential (primary) hypertension; J45.909 Unspecified asthma, uncomplicated; J32.0 Chronic maxillary sinusitis; R13.14 Dysphagia, pharyngoesophageal phase; G31.84 Mild cognitive impairment of uncertain or unknown etiology; N39.41 Urge incontinence; M54.6 Pain in thoracic spine; M81.0 Age-related osteoporosis without current pathological fracture; I73.00 Raynaud's syndrome without gangrene; K21.9 Gastro-esophageal reflux disease without esophagitis
CPT/HCPCS: 36415; 36416; 80048; 80053; 80307; 82962; 85027; 93005; 94640; 96374; 99285; J1650; 70450; 70486; 71046; 80320; 81003; 81015; 83735; 84484; 85025; 93010; 99223; 99231; 99232; 99238; 99284; J2060; J3490

== ENCOUNTER 2022-09-30 13:57 | Outpatient (REF) | payer MEDICARE, MEDICAID, SELFPAY ==
[2022-09-30 18:48] LABS: Creatinine,Urine 49.33 mg/dL
[2022-09-30 18:49] LABS: Creatinine,24hr Ur 0.89 g/24hr (0.60-1.80); Total Volume 1850 ml
[2022-10-02 09:09] LABS: Calcium Urine 15.5 mg/dL (See Note); Calcium Urine 24 hr 287 mg/24hrs (100-300); Timed Urine Volume 1850 mL
== END 2022-09-30 13:58 | disposition home or self-care (01) ==
LOC: LBN 13:57
PROVIDERS: PCP Internal Medicine; Visit Provider Student in an Organized Health Care Education/Training Program
DX: E83.52 Hypercalcemia (principal)
CPT/HCPCS: 81050; 82340; 82570

== ENCOUNTER 2022-09-30 14:21 | Outpatient (CLI) | payer MEDICARE, MEDICAID, SELFPAY ==
[2022-09-30 14:37] LABS: Hemoglobin A1C 7.3 % (<5.7)
[2022-09-30 15:57] LABS: Albumin 3.3 g/dL (3.4-5.0)
== END 2022-09-30 14:22 | disposition home or self-care (01) ==
LOC: LBO 14:22
PROVIDERS: PCP Internal Medicine; Visit Provider Student in an Organized Health Care Education/Training Program
DX: E10.65 Type 1 diabetes mellitus with hyperglycemia (principal)
CPT/HCPCS: 36415; 82306; 82040; 83036

== ENCOUNTER 2022-10-25 04:11 | Outpatient (CLI) | payer MEDICARE, MEDICAID, SELFPAY ==
--- NOTE | 2022-10-25 07:28 | DI.RAD_ITS ---
Exam(s) RF MODIFIED SPEECH BA SWALLOW TECHNIQUE: Modified barium swallow was performed in conjunction with speech pathology. CONTRAST MATERIAL: Oral barium contrast was administered. COMPARISON: No exams were available for comparison FINDINGS: Note that this is not a dedicated esophagram, distal esophagus not evaluated. There is no evidence of aspiration or penetration of thick or thin liquids, barium pudding, or barium coated cookies. Speech pathology report to follow. A barium tablet passed into the stomach without difficulty. IMPRESSION: Unremarkable modified barium swallow examination. RADIATION DOSE DELIVERED: alda Armstrong=7.97 mGy
--- NOTE | 2022-10-25 09:00 | ST.MBS_ITS ---
Date of Service Date of service: 10/25/22 Time of Service: 09:00 Modified Barium Swallow Study Findings: Video fluoroscopic Swallowing Evaluation (VFSE) / Modified Barium Swallow Study (MBSS) Speech Language Pathology Report Patient referred for VFSE/MBSS from Dr. Abbasi given pharyngoesophageal dysphagia complaints on the right side. HPI & Patient report of function: Patient is a 67 y/o F with history of COLLINS, but no overt evidence of LPR noted by ENT on laryngoscopy, and longstanding history of dysphagia to solids and pills which is becoming progressively worse. She localizes sensation of pharyngeal residue to R at approximately the level of the UES. She denies any difficulty with liquids. PMHx: PFSH All Active Problems? Pharyngoesophageal dysphagia (Acute) Chronic left maxillary sinusitis (Acute) Insulin dependent diabetes mellitus (Chronic) Hypertension (Chronic) Asthma (Chronic) Status post cataract extraction and insertion of intraocular lens of right eye (Chronic 10/23/18) Status post cataract extraction and insertion of intraocular lens of left eye (Chronic 11/06/18) Right flank pain (Acute) Urgency incontinence (Acute) Mild cognitive impairment (Acute) Nail dystrophy (Acute) Medical History? Alcohol abuse Asthma, intermittent Back pain thoracic region Cataract bilateral Depression with anxiety Diabetes mellitus type 1 pump in situDysphagia, pharyngeal phase Edema GERD (gastroesophageal reflux disease) Hearing loss in right ear Hx of adenomatous colonic polyps Hypertension Intermittent palpitations Pt. states this is not currentOsteoporosis Pain in joints of left hand Pain in joints of right hand Raynaud phenomenon Strain of thoracic back region Trigger finger of left thumb Trigger finger, right index finger Urinary incontinence Surgical History? History of carpal tunnel release 12/26/1987 (complicated by median nerve) left middle finger trigger releaseHistory of section x2 ( and )History of surgical removal of pilonidal cyst IMPRESSIONS AND PLAN: Swallow safety is preserved; swallow efficiency is preserved. Overall swallow function appears safe/WFL. There is trace vallecular residue R>L with both liquids and solids likely a result of very mildly reduced epiglottic inversion. Pharyngo-esophageal segment with trace residual column of contrast following completion of swallow, altered bolus flow in proximal esophagus secondary to ?osteophytes at levels C4-6. The amount of residue is not abnormal and her perception of dysphagia is likely result of pharyngeal/laryngeal hypersensitivity or tension. Swallow prognosis is excellent given: Positive prognostic factors: Age, Severity, Motivation, Provided strategy training as below including reflux counseling. If patient/provider feel her GERD is well managed and she would like to return to [employer] in the future to address possible muscle tension component, please place speech therapy referral. RECOMMENDATIONS: Diet Texture Recommendation:? IDDSI LEVEL SOLIDS 7-Regular Solids LIQUIDS 0-Thin Liquids Please see further details at?www.iddsi.org http://www.iddsi.org/ MEDICATIONS As tolerated. Do not alter medications (e.g., cut)? without advice from your MD or pharmacist. Risk Management Strategies:? Behavioral reflux precautions, including upright position during + 90 mins after meals. Small bites, approx [id number] Small sips, approx 10 mL Alternate solids/liquids as able Control risk factors for aspiration pneumonia via (a) thorough oral hygiene & (b) maintaining physical mobility as tolerated ----- OBJECTIVE Videofluoroscopic Swallow Evaluation (VFSE/MBSS) was conducted in the lateral and [id number] projection by Speech-Language Pathologist, in collaboration with Radiologist, to evaluate oropharyngeal swallow function. Anatomic view under fluoroscopy: Noting appearance of prominences on posterior esophageal wall at levels of C4,5,6. PO Barium Contrast Trials Oral barium water-soluble contrast was administered as follows: IDDSI Level 0 Varibar thin liquid (40% w/v) IDDSI Level 2 Varibar nectar thick/mildly thick liquid (40% w/v) IDDSI Level 4 Varibar pudding/pureed/extremely thick (40% w/v) IDDSI Level 7 Regular Solid: 1/2 elisa cracker coated in 3 mL Varibar pudding 13 mm barium tablet taken with Thin Liquids. MBSImP Component Scores: COMPONENT Scale SCORE 1 Lip closure (0-4) 0 Resulted in no labial escape 2 Hold Position (0-3) 0 Maintained a cohesive bolus between tongue to palatal seal 3 Bolus Preparation (0-4) 0 Resulted in timely and efficient chewing and mashi ng 4 Bolus Transport (0-4) 1 Demonstrated delayed initiation of tongue motion 5 Oral Residue (0-4) 1 Was a trace, lining oral structures A 6 Swallow Initiation (0-4) 2 Occurred as bolus head at posterior laryngeal surface of epiglottis 7 Soft Palate Elevation (0-4) 0 Resulted in no bolus between soft palate and t he pharyngeal wall 8 Laryngeal Elevation (0-3) 0 Demonstrated complete superior movement of thyro id cartilage with complete approximation of arytenoids to epiglottic petiole 9 Anterior Hyoid Motion (0-2) 0 Demonstrated complete anterior movement 10 Epiglottic Movement (0-2) 1 Resulted in partial inversion 11 Laryngeal Closure (0-2) 0 Was complete with no air or contrast in laryngeal vestibule 12 Pharyngeal Stripping Wave (0-2) 0 Was present and complete 13 Pharyngeal Contraction (0-3) 0 Was complete 14 PES Opening (0-3) 1 Demonstrated partial distension/partial duration, with partial obstruction of flow 15 Tongue Base Retraction (0-4) 1 Allowed a trace column of contrast or air between tongue base and pharyngeal wall 16 Pharyngeal Residue (0-4) 1 Showed a trace within or on pharyngeal structure s 17 Esophageal Clearance (0-4) NA Results: COMPONENT Scale SCORE 1 Oral Score (0-18) 3 2 Pharyngeal Score (0-29) 2 3 Esophageal Score (0-4) 0 Dysphagia Outcome and Severity Scale: COMPONENT Scale SCORE 1 LEVEL (1-7) 6 Within functional limits/modified independence Penetration-Aspiration Scale: COMPONENT Scale SCORE 1 Thin liquid (1-8) 1 Contrast did not enter the airway 2 [place] thick (1-8) 1 Contrast did not enter the airway 3 Honey thick (1-8) NA 4 Pudding thick (1-8) 1 Contrast did not enter the airway 5 Cookie (1-8) 1 Contrast did not enter the airway Trialed Compensatory Strategies & Outcome: Maneuvers Successful (+) Unsuccessful (-) Postures Successful (+) Unsuccessful (-) 3 second Preparatory Set? ? +/- Chin Tuck Posture? ? Cough? ? Posterior Head tilt? Reflexive? Cued? Throat Clear? ? Head Tilt to? Reflexive? Left? Cued? Right? ? Saliva swallow? ? + Head Turn/Rotate to? ? Supraglottic Swallow? Left? ? Super-supraglottic Swallow? Right? ? Bolus Modifications Successful (+) Unsuccessful (-) Delivery/Alternating Consistencies ? Follow with Liquid Wash ? Follow with Solid Bolus? Delivery/Via Straw? ? Reduced Volume? ? Reduced Rate of Intake? ? Increased Viscosity? ? Other:?? ? Thank you for allowing us to take part in this patient's care. Please feel free to contact the [facility] Speech Language Pathology Department with any questions/concerns. Coding CPT Codes MOTION FLUOROSCOPY/SWALLOW - [id number] ([id number])
[2022-10-25] MEDS: Barium Sulfate 40% W/V 240 ML BTL PO (09:30)
[2022-10-25] MEDS: Barium Sulfate 81% w/w for Oral Suspension 148 GM BTL PO (09:31)
[2022-10-25] MEDS: Barium Sulfate 700 MG TAB PO (09:31)
[2022-10-25] MEDS: Barium Sulfate Oral Paste 40% W/V 230 ML TUBE PO (09:32)
== END 2022-10-25 04:31 ==
LOC: DI 04:11
PROVIDERS: PCP Internal Medicine; Visit Provider Otolaryngology
DX: R13.14 Dysphagia, pharyngoesophageal phase (principal); K21.9 Gastro-esophageal reflux disease without esophagitis
CPT/HCPCS: 92611; 74221

== ENCOUNTER 2022-12-09 15:25 | Outpatient (CLI) | payer MEDICARE, MEDICAID, SELFPAY ==
--- NOTE | 2022-12-09 | DI.RAD_ITS ---
Exam(s) XR LUMBAR SPINE AP, LAT EXAM: XR LUMBAR SPINE AP, LAT CLINICAL HISTORY: SEVERE OSTEOPOROSIS, BACK PAIN. TECHNIQUE: 2D digital imaging was performed. COMPARISON: CR XR DEXA BONE DENSITY W/WO JYOTHI from 06/25/2022 FINDINGS: 3 views No evidence of fracture, listhesis, nor pars interarticularis defects. There is mild disc space narr owing posterior aspect of L3-4 level noted. No scoliosis. No osseous lesions. Sacroiliac joints ap pear unremarkable. IMPRESSION: Mild disc space narrowing at L3-4 level. DATA REPOSITORY: RADIATION DOSE DELIVERED:
--- NOTE | 2022-12-09 15:03 | DI.RAD_ITS ---
Exam(s) XR THORACIC SPINE COMPLETE EXAM: XR THORACIC SPINE COMPLETE CLINICAL HISTORY: SEVERE OSTEOPOROSIS, BACK PAIN, M81.0. TECHNIQUE: 2D digital imaging was performed. COMPARISON: CR XR thoracic spine complete from 02/02/2019 FINDINGS: 3 views Again noted is unchanged height loss T9 vertebral body, unchanged. No additional compression fractur es. No scoliosis. No listhesis. No abnormal widening of the paraspinal lines. Incidentally noted is chronic degenerative disc space narrowing at C5-6 and C6-7 levels. IMPRESSION: Chronic unchanged height loss of T9 vertebral body, unchanged. DATA REPOSITORY: RADIATION DOSE DELIVERED:
== END 2022-12-09 15:45 ==
PROVIDERS: PCP Internal Medicine; Visit Provider Internal Medicine Endocrinology, Diabetes & Metabolism
DX: M81.0 Age-related osteoporosis without current pathological fracture (principal); M48.061 Spinal stenosis, lumbar region without neurogenic claudication
CPT/HCPCS: 72072; 72100

== ENCOUNTER 2022-12-13 13:37 | Outpatient (REF) | payer MEDICARE, MEDICAID, SELFPAY ==
[2022-12-14 22:47] LABS: Campylobacter PCR Negative (Negative); Salmonella PCR Negative (Negative); Shiga Toxin PCR Negative (Negative); Shigella/Enteroinvasive Ecoli Negative (Negative)
== END 2022-12-13 13:38 | disposition home or self-care (01) ==
LOC: NCHCN 13:37
PROVIDERS: PCP Internal Medicine; Visit Provider Internal Medicine
DX: R19.7 Diarrhea, unspecified (principal)
CPT/HCPCS: 87329; 87505; 82272; 83630

== ENCOUNTER 2022-12-20 03:05 | Outpatient (CLI) | payer MEDICARE, MEDICAID, SELFPAY ==
[2022-12-20 09:52] LABS: Hemoglobin A1C 7.2 % (<5.7)
[2022-12-20 10:01] LABS: Vitamin D 25 Total 21.6 ng/mL (30-100)
[2022-12-20 14:04] LABS: Albumin 2.6 g/dL (3.4-5.0); Anion Gap 10.8 mmol/L (3-11); BUN 16 mg/dL (7-18); CO2 27.2 mmol/L (21.0-32.0); CREATININE 0.9 mg/dL (0.55-1.02); Calcium 9.3 mg/dL (8.5-10.1); Calculated LDL 65 mg/dL (<100); Chloride 107 mmol/L (98-107); Cholesterol 131 mg/dL (<200); Estimated GFR 70.95 (mL/min/1.73m2); Glucose 196 mg/dL (74-106); HDL Cholesterol 49 mg/dL (40-60); Potassium 4.2 mmol/L (3.5-5.1); Sodium 145 mmol/L (136-145); Triglyceride 86 mg/dL (<150)
[2022-12-20 19:44] LABS: Parathyroid Hormone,Intact 40 pg/mL (19-88)
== END 2022-12-20 03:06 | disposition home or self-care (01) ==
PROVIDERS: PCP Internal Medicine; Visit Provider Student in an Organized Health Care Education/Training Program
DX: E10.649 Type 1 diabetes mellitus with hypoglycemia without coma (principal); M81.0 Age-related osteoporosis without current pathological fracture
CPT/HCPCS: 80048; 80061; 82306; 82040; 83036; 83970

== ENCOUNTER 2022-12-22 10:14 | Outpatient (REF) | payer MEDICARE, MEDICAID, SELFPAY ==
[2022-12-22 12:19] LABS: Creatinine,Urine 41.43 mg/dL
[2022-12-22 12:23] LABS: COMMENT (LAB VIEW ONLY) 42.26 mg/dL
[2022-12-22 12:25] LABS: Total Volume 1700 ml
[2022-12-23 09:12] LABS: Calcium Urine 24 hr 238 mg/24hr (100-300); Timed Urine Volume 1700 mL
== END 2022-12-22 10:15 | disposition home or self-care (01) ==
LOC: LBN 10:14
PROVIDERS: PCP Internal Medicine; Visit Provider Student in an Organized Health Care Education/Training Program
DX: E83.52 Hypercalcemia (principal); E10.649 Type 1 diabetes mellitus with hypoglycemia without coma; M81.0 Age-related osteoporosis without current pathological fracture
CPT/HCPCS: 81050; 82043; 82340; 82570

== ENCOUNTER 2023-04-06 02:17 | Outpatient (CLI) | payer MEDICARE, SELFPAY ==
[2023-04-07 15:34] LABS: C-Peptide <0.1 ng/mL (1.1 - 4.4)
== END 2023-04-06 02:18 | disposition home or self-care (01) ==
LOC: LBO 02:17
PROVIDERS: PCP Internal Medicine; Visit Provider Internal Medicine
DX: E10.9 Type 1 diabetes mellitus without complications (principal)
CPT/HCPCS: 36415; 84681

== ENCOUNTER → 2023-04-20 02:42 | Outpatient (CLI) | payer MEDICARE, SELFPAY ==
--- NOTE | 2023-04-20 | DI.MAMMO_ITS ---
Exam(s) MAMMO SCREENING EXAM: MAMMO SCREENING CLINICAL HISTORY: SCREENING, Z12.31. TECHNIQUE: Bilateral full field digital CC and MLO mammographic images were obtained with 3D tomosyn thesis and utilizing computer aided detection (CAD). COMPARISON: Prior mammograms were reviewed. FINDINGS: There has been no significant change in the appearance and distribution of the fibroglandular tissue. There are no CAD designations. There are no new spiculated masses nor malignant appearing microcalcification groups. There is no significant architectural distortion nor skin thickening-retraction. IMPRESSION: No radiographic evidence of malignancy. BI-RADS Category 1 - Negative Breast Density - Category B - Scattered areas of fibroglandular density Breast density Category C or D implies that the patient has dense breast tissue. Dense breast tissue can make it harder to find cancer on a mammogram. Dense breast tissue is also associated with an incr eased risk of breast cancer. This information about the result of the mammogram report was provided to the patient to raise their awareness. Use this report when you speak with the patient about their risks for breast cancer, which includes their family history. At that time, you may recommend additional screening tests (Ultrasoun d or MRI) as these tests may add significant information. A negative radiographic report should not delay biopsy if a dominant or clinically suspicious mass is present. Up to ten percent of cancers are not identified on mammography. A negative report may reinforce clinical impression. Adenosis and dense breasts may obscure an underlying neoplasm. False positive reports average 6 to 10%. Patient will receive a letter notifying them of these results.
== END ==
PROVIDERS: PCP Internal Medicine; Visit Provider Internal Medicine
DX: Z12.31 Encounter for screening mammogram for malignant neoplasm of breast (principal)
CPT/HCPCS: 77063; 77067

== ENCOUNTER 2023-05-02 00:57 | Outpatient (RCR) | payer MEDICARE, SELFPAY ==
[2023-05-02] MEDS: diphenhydrAMINE 50 MG/ML VIAL IVP (12:10)
[2023-05-02] MEDS: Normal Saline Flush 10 ML SYR IVP (12:23)
[2023-05-02] MEDS: ZOLEDRONIC ACID/MANNITOL/WATER 5 MG/100 ML BTL 300 MG IVPB (12:44)
== END 2023-05-26 23:59 | disposition home or self-care (01) ==
LOC: INF 00:57
PROVIDERS: PCP Internal Medicine; Visit Provider Family Medicine
DX: M81.0 Age-related osteoporosis without current pathological fracture
CPT/HCPCS: 96365; 96374; 96375; J1200; J3489

== ENCOUNTER → 2023-05-06 08:57 | Outpatient (BNVA) | payer MEDICARE, SELFPAY | PROVIDERS: PCP Internal Medicine; Referring Provider Internal Medicine; Visit Provider Surgery | DX: L98.9 Disorder of the skin and subcutaneous tissue, unspecified (principal) | CPT/HCPCS: 99213 ==

== ENCOUNTER 2023-06-01 10:55 | Day surgery (SDC) | payer MEDICARE, SELFPAY ==
--- NOTE | 2023-06-01 09:04 | W.PM.PROGNOT ---
Date of Service Date of service: 06/01/23 Time of Service: 14:20 Assessment and Plan Assessment and plan (1) Facial skin lesion: Status: Acute Assessment and plan: Mrs. Sol is a pleasant 68-year-old female with 3 little skin lesions. I am seeing her in SDS. One lesion is on her forehead which is quite hard to see but it is palpable. Its dry and flaky. This might be a very small basal or squamous cell cancer. Bilateral cheeks she has small subcentimeter moles that are light brown-colored. They are raised and soft. I think again these are benign but they are causing interference with her CPAP machine so I think it is important to remove these. Once the incisions are healed she should be able to use her CPAP again without difficulty. We discussed the procedure. The patient is quite anxious about procedures and would rather be sedated deeply. Apparently she had a bad experience in the past. She has not had issues with anesthesia before. We will plan on excision in the operating room under sedation. I reviewed the procedure in detail as well as the possible complications. Complications include but are not limited to bleeding, infection, wound dehiscence, recurrence and need for further surgery if they do come back as malignant and my margins are not clear. The patient's questions were entertained and answered to her satisfaction she wished to proceed. Patient had a good understanding of both the procedure as well as the possible complications at the end of her conversation. Subjective Subjective Interval history since last seen: Ebonie is doing well. She has no new complaints or questions regarding surgery. She has not had any upper respiratory symptoms. Exam Const General: cooperative, comfortable and no acute distress Orientation: alert and oriented x3 [facility] Head: normocephalic and atraumatic Resp Effort & Inspection: normal respiratory effort Auscultation: clear to auscultation bilaterally Cardio Rate: regular rate Rhythm: regular rhythm GI Inspection: normal to inspection Skin Lesions: other (forhead, and cheek x2) Time Spent with Patient Time Spent with Patient: <25 minutes Time was spent: counseling the patient
--- NOTE | 2023-06-01 09:15 | ROE_ITS ---
Date of service: 06/01/23 Time of Service: 14:40 Operative Note Operative Note DATE OF PROCEDURE: 06/01/23 PRE-OP DIAGNOSIS: skin lesions on face POST-OP DIAGNOSIS: same PROCEDURE: Excision of skin lesions on face x 3 SURGEON: Meghana Schaefer ANESTHESIA TYPE: Local By Surgeon and General:No Airway Refer to Anesthesia Record PATHOLOGY: other (skin lesions x3) COMPLICATIONS: None Patient was transported to: same day Patient's condition: stable Indications: Mrs. Sol is a pleasant 68-year-old female with 3 little skin lesions. One is on her forehead which is quite hard to see but it is palpable. Its dry and flaky. This might be a very small basal or squamous cell cancer. Bilateral cheeks she has small subcentimeter moles that are light brown-colored. They are raised and soft. I think again these are benign but they are causing interference with her CPAP machine so I think it is important to remove these. I reviewed the procedure in detail as well as the possible complications. Complications include but are not limited to bleeding, infection, wound dehiscence, recurrence and need for further surgery if they do come back as malignant and my margins are not clear. The patient's questions were entertained and answered to her satisfaction she wished to proceed. Patient had a good understanding of both the procedure as well as the possible complications at the end of her conversation. Findings: Forehead- 5 x 8 mm eliptical incision around a 2 mm lesion Right cheek- 1 x 1.5 cm eliptical incision made around a 5 x 7 mm mole Left cheek- 2 x 1.5 cm elipticaql incision made around a 7 x 7 mm mole. Procedure Description: After informed consent was obtained in same-day surgery the patient was taken to the operating room and placed in a supine position on the operating table. Monitors were applied and she was given deep sedation. A timeout was then done. The patient's name, date of , procedure to be done and sites, allergies to medications were reviewed. Fire risk was assessed. 3 skin lesions on the face were marked in same-day surgery 1 on the forehead, 1 on the right cheek and 1 on left cheek. Next the patient's face was prepped and draped in a sterile surgical fashion. 1% lidocaine with epinephrine was injected into the dermis and subcutaneous tissue around all of the lesions. Using a 15 blade elliptical incisions were made around each lesion down to the subcutaneous tissue and the lesions were removed. The left cheek lesion was marked at the superior corner and placed in formalin. The right cheek lesion was marked on the inferior corner and placed in formalin. The forehead lesion was so small that I was unable to get a suture to jose it. It was placed in formalin and sent to pathology. The dermis was then closed with interrupted 6-0 Prolene sutures. The skin was then cleaned and dried. Mastisol and Steri-Strips were applied. The patient was then allowed to wake up. She was [facility] and taken to same-day surgery in stable condition. There were no immediate complications.
--- NOTE | 2023-06-01 09:18 | W.PM.DSUDISC ---
Date of service: 06/01/23 Time of Service: 15:22 Discharge Plan Disposition Patient Disposition: Home Condition: Stable Discharge Details Reason For Visit: facial lesions Attending Provider: Meghana Schaefer Primary Care Provider: Mitchell Yap Home Meds and New Rx's Prescriptions: Continued glucosamine sulfate 2KCl [Glucosamine Relief] 1,000 mg tablet 1,000 mg PO DAILY Rx Instructions: administer with meals insulin lispro [Humalog U-100 Insulin] 100 unit/mL solution 20 - 25 unit subcut DAILY lisinopril 20 mg tablet 10 mg PO HS acetaminophen [Tylenol Extra Strength] 500 mg tablet 1,000 mg PO QAM atorvastatin 20 mg tablet 20 mg PO HS cholecalciferol (vitamin D3) 50 mcg (2,000 unit) capsule 2,000 unit PO HS Patient Comments: TAKE ONE CAPSULE BY MOUTH EVERY DAY dexlansoprazole [Dexilant] 30 mg capsule,biphase delayed releas 30 mg PO HS multivitamin [Multiple Vitamins] Tablet 1 tab PO HS albuterol sulfate [ProAir HFA] 90 mcg/actuation Hfa Aerosol Inhaler 1 - 2 inh Inhalation Q4H PRN magnesium 250 mg Tablet 250 mg PO HS ibuprofen 200 mg Tablet 600 mg PO HS glucagon HCl [Glucagon (HCl) Emergency Kit] 1 mg Recon Soln 1 mg SUBCUT Q20M PRN Patient Comments: pt. reports 6 months, pt. reports coming to hospital for her DM, in the spring Rx Instructions: until target blood sugar attained Discharge Instructions Additional Instructions: Activity at Home after surgery: 1. As tolerated Diet, Nutrition, & wound healin. As tolerated Pain Medications: 1. Tylenol 650mg every 6 hours as needed and Ibuprofen 600 mg every 6 hours as needed. You may alternate between the 2 medications every 3 hours Other: 1. You may shower daily. Do not scrub the incisions 2. Do not soak the incisions for 1 week 3. You may alternate ice and heat as needed for pain and swelling Wound Care: 1. Keep the incisions clean and dry Please call our office if you develop: 1. Fevers >101.5 2. Nausea or Vomiting 3. Worsening pain 4. Redness and thick discharge from the wounds If after hours please call the Hospital at and ask to speak to the on-call surgeon Stand Alone Forms: Anesthesia Discharge Inst., Press Ganey (DSU) Referrals: Meghana Schaefer MD [ [facility] STAFF PHYSICIAN] - 06/10/23 9:30 am Activity:: Activity as Tolerated Diet:: As Tolerated Discharge Orders Discharge Orders: Discharge Order (Routine); Ordered 06/01/23 Ordered By: Meghana Schaefer DS: Diagnosis Discharge Diagnosis (1) Facial skin lesion: Status: Acute Asessment and Plan: The patient is doing well post-op from her excision of skin lesions.? She is having no nausea or vomiting. She is tolerating liquids and a snack. The pt is not having any chest pain or SOB.? She is having a headache. Ibuprofen has been ordered for that.? ?HEENT:? no eye pain/drainage/redness/swelling. Mild sore throat ?Cardio- NSR, no chest pain, BP stable- see VS record ?Pulm: no sob or productive cough. No hemoptysis ?Incision- dressing is c/d/i w/ no excessive bleeding or drainage ?I discussed with the patient the findings at the time of surgery and the patient?s progress. ?We reviewed expectations at home; what the patient could expect for recovery time, and in the post-operative period.? We discussed the importance of walking to avoid blood clots and pneumonia.? We discussed and reviewed the patient's post-operative wound care and dressing needs.?? We reviewed their [place] pain management plan, Rx called to the pharmacy of their choice.? We reviewed activity and limitations-see discharge instructions. We reviewed warning signs, and when to seek medical attention- see d/c instructions.?? Patient was given a postoperative follow-up appointment. Patient verbalized understanding of their postoperative instructions, how do to take care of themselves and their incision, and the pain management plan. Please see discharge instructions.?
[2023-06-01 11:57] VITALS: BP 131/78; PULSE 75; RESP 16; TEMP 36.5; O2SAT 100
[2023-06-01] MEDS: Lactated Ringers 1,000 ML 80 ML IV (12:30)
--- NOTE | 2023-06-01 12:50 | W.ANESPRE ---
General Info Date of Service Date Performed: 06/01/23 Height: 4 ft 11 in Weight: 60.3 kg Body Mass Index (BMI): 26.8 Surgical Procedure: Operation Date: 06/01/23 13:10 Proposed Procedure Side Surgeon p Excision Lesion Forehead, Lt & Rt Cheek Bilateral Meghana Schaefer MD Meds Allergies and Home Medications Allergies Allergy/AdvReac Type Severity Reaction Status Date / Time Penicillins Allergy Severe Anaphylaxis Unverified 06/01/23 11:48 prochlorperazine Allergy Severe Other (See Unverified 06/01/23 11:48 Comment) latex Allergy Mild Unverified 06/01/23 11:48 naproxen Allergy Mild Unknown Unverified 06/01/23 11:48 mannitol [From Reclast] AdvReac vertigo, Verified 06/01/23 11:48 unsteadiness water for injection,sterile AdvReac vertigo, Verified 06/01/23 11:48 [From Reclast] unsteadiness zoledronic acid AdvReac vertigo, Verified 06/01/23 11:48 [From Reclast] unsteadiness Home Medication Medication Instructions Recorded albuterol sulfate 90 mcg/actuation 1 - 2 inh inhalation Q4H PRN 10/19/18 aerosol inhaler (ProAir HFA) magnesium 250 mg tablet 250 mg PO HS 10/19/18 multivitamin (Multiple Vitamins 1 tab PO HS 10/19/18 tablet) insulin lispro 100 unit/mL 20 - 25 unit subcut DAILY 03/09/21 subcutaneous solution (Humalog U-100 Insulin) lisinopril 20 mg tablet 10 mg PO HS 03/09/21 acetaminophen 500 mg tablet 1,000 mg PO QAM 07/21/21 (Tylenol Extra Strength) atorvastatin 20 mg tablet 20 mg PO HS 08/13/21 cholecalciferol (vitamin D3) 50 2,000 unit PO HS 08/05/22 mcg (2,000 unit) capsule dexlansoprazole 30 mg 30 mg PO HS 09/08/22 capsule,biphase delayed release (Dexilant) glucagon HCl 1 mg solution for 1 mg subcut Q20M PRN 09/22/22 injection (Glucagon (HCl) Emergency Kit) ibuprofen 200 mg tablet 600 mg PO HS 09/22/22 glucosamine sulfate 2KCl 1,000 mg 1,000 mg PO DAILY 05/06/23 tablet (Glucosamine Relief) Current Visit Medications: Current Medications Generic Name Dose Route Start Last Admin Trade Name Freq PRN Reason Stop Dose Admin Acetaminophen 650 mg 06/01/23 09:17 Acetaminophen 325 Mg Tab PO 07/01/23 09:16 Q4H PRN PRN Ringer's Solution 1,000 mls @ 80 mls/hr 06/01/23 06:00 06/01/23 12:30 IV 06/30/23 23:59 80 mls/hr INFUSION JAMESON Administration IV Miscellaneous Supplies 1 each 06/01/23 06:00 Iv Access IV 06/30/23 23:59 DIRECTED JAMESON Sodium Chloride 0 ml 06/01/23 06:00 Normal Saline Flush 10 Ml Syr IV 06/30/23 23:59 PRN PRN Sodium Chloride 0 ml 06/01/23 06:00 Normal Saline 10 Ml Vial IJ 06/30/23 23:59 DIRECTED PRN Sterile Water 0 ml 06/01/23 06:00 Water,Injection,Sterile 10 Ml Vial IJ 06/30/23 23:59 DIRECTED PRN PFSH Active Problems Active Problems: Problem Status Onset Code Facial skin lesion L98.9 Pharyngoesophageal dysphagia R13.14 Chronic left maxillary sinusitis J32.0 Nail dystrophy L60.3 Mild cognitive impairment G31.84 Urgency incontinence N39.41 Right flank pain R10.9 Status post cataract extraction and insertion of intraocular lens of left eye 11/06/18 Z98.42, Z96.1 Status post cataract extraction and insertion of intraocular lens of right eye 10/23/18 Z98.41, Z96.1 Asthma J45.909 Hypertension I10 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 states her BP has been running low so they cut down her lisinopril dose Asthma, intermittent GERD (gastroesophageal reflux disease) Intermittent palpitations Pt. states this is not current Trigger finger of left thumb Hearing loss in right ear Depression with anxiety Alcohol abuse Osteoporosis Back pain thoracic region Strain of thoracic back region Pain in joints of left hand Pain in joints of right hand Trigger finger, right index finger Cataract bilateral Diabetes mellitus type 1 pump in situ Surgical History Surgical History History of carpal tunnel release 12/26/1987 (complicated by median nerve) left middle finger trigger release History of surgical removal of pilonidal cyst History of section x2 ( and ) Tobacco Smoking/Tobacco Use Status: Former Tobacco Use Alcohol Alcohol Intake: former Substance Use Substance use: Never Substance use type: does not use Details: alcohol use: 5 years ago Prental History History 2 Para 2 Hx # Term Pregnancies Multiple births Hx # Pregnancies Ectopic pregnancies AB induced Hx Number of Living Children 2 AB spontaneous Vital Signs and Lab Results Vital Signs Most Recent Vital Signs in EMR: Most Recent Vital Signs Temp Pulse Resp BP Pulse Ox 36.5 C 75 16 131/78 100 06/01/23 11:57 06/01/23 11:57 06/01/23 11:57 06/01/23 11:57 06/01/23 11:57 Lab Results Blood Type / Crossmatch: No Data to Display Complete Blood Count: No Data to Display Complete Metabolic Panel: No Data to Display Liver Function Panel: No Data to Display Coagulation Panel: No Data to Display Cardiac Panel: No Data to Display Arterial Blood Gas: No Data to Display Venous Blood Gas: No Data to Display Pancreas Panel: No Data to Display Thyroid Panel: No Data to Display Infectious Disease: No Data to Display Blood Cultures: No Data to Display Toxicology Panel: No Data to Display Imaging and Studies Imaging and Studies Study information below may be from another EMR and interpreted by another provider. Please see original notes in EMR for more complete details. EKG Summary: 09/16: sinus. Stress Test Summary: Stress ECG Conclusion 1. The patient exercised for 7 minutes 30 seconds (9 METS). Rate-pressure product was 22,000 2. There were no symptoms suggestive of ischemia during stress. Exercise was stopped due to leg fatigue. 3. The Sam Score ( 7) estimates an annual cardiovascular mortality of 0% and a five year survival of 95%. Using the Sam Score there is a low probability of any angiographic coronary disease. Anesthesia Assessment and Plan Anesthesia History Personal History: No History of Anesthesia Complications Family History: No Family History of Anesthesia Complications Exercise Tolerance Exercise Tolerance: Metabolic Equivalents<4 Cardiac & Pulmonary Exam Cardiac Exam: Normal S1/S2 Heart Sounds Pulmonary Exam: Clear Bilateral Breath Sounds Implantable Cardiac Device Does patient have a Pacemaker or an ICD?: No Airway Exam Known Difficult Airway: No Mallampati Class: 2 Mouth Opening: Normal (> 3cm) Thyromental Distance: Less than 3 cm Neck Range of Motion: Full ROM Neck Circumference: Normal Teeth Condition: Normal Dentition ASA Classification ASA Score: ASA 3 Emergency Case?: No NPO Status NPO Status: NPO Clears >2 hours, Solids >8 hours Anesthesia Plan Resuscitation Status: Full Code Anesthesia Technique: General Anesthesia Airway Planned: Natural Airway Monitors Used: Standard Monitors Preoperative Comments:: 68 yo female for lesion removal. Sig PMHx: HTN (lisinopril), asthma (albut), GERD (dexlnsoprazole), IDDM (lispro, pump, last A1c in [employer] 7.2), depression/anxiety, former smoker/EtOH,
[2023-06-01] MEDS: Lidocaine 1% Multi-Dose W/EPI 1/100,000 50 ML VIAL (14:21)
--- NOTE | 2023-06-01 14:24 | SKI_PTH ---
PATIENT: Ebonie Sol LOC: [facility] U#:[id number] AGE/SX: 68/F ROOM: RE06/01/[address]: Meghana Schaefer MD : 1955 BED: DIS: 06/01/2023 SPEC #: [id number] RECD: 06/01/23 18:36 STATUS: ONOFRECarie REZachery #: [id number] VIANNEY: 06/01/23 14:[address]: Meghana Schaefer DEPT: Surgical Specimen RECD BY: Lana Grissom ENTERED: 06/01/23 18:38 SP TYPE: MATHEW SHINE DR: Mitchell Yap Tissues: 1 - SKIN BIOPSY(SHAVE/PUNCH) 2 - SKIN BIOPSY(SHAVE/PUNCH) 3 - SKIN BIOPSY(SHAVE/PUNCH) Procedures: SKIN LEVEL 4 Comments: [id number]
[2023-06-01 14:48] VITALS: BMI 26.8
[2023-06-01 14:50] VITALS: BP 116/58; PULSE 85; RESP 16; TEMP 36.5; O2SAT 99
--- NOTE | 2023-06-01 15:00 | W.ANESPOSTOP ---
Postoperative Evaluation Date, Time and Location Date Performed: 06/01/23 Time Performed: 15:00 Patient Location: Day Surgery Unit Vital Signs Most Recent Imported Vital Signs: Temp Pulse Resp BP Pulse Ox 36.5 C 85 16 116/58 L 99 06/01/23 14:50 06/01/23 14:50 06/01/23 14:50 06/01/23 14:50 06/01/23 14:50 Pain Score Most Recent Pain Score: Most Recent Pain Score Pain Level 0 06/01/23 11:57 Assessment Mental Status: Awake (Alert & Oriented to Patient Baseline) Airway and Respiratory Function: Patent airway with normal (patient baseline) respiratory exam Cardiovascular Function: Hemodynamically Stable Hydration Status: Adequately Hydrated Nausea & Vomiting: No Nausea or Vomiting Pain: Pt. Denies Any Pain Peripheral Nerve Block: Patient did not receive a nerve block
[2023-06-01 15:30] VITALS: BP 112/66; PULSE 71; RESP 18; TEMP 36.1; O2SAT 100
[2023-06-01] MEDS: Ibuprofen 600 MG TAB PO (15:32)
[2023-06-01 16:30] VITALS: BP 128/78; PULSE 76; RESP 16; TEMP 36.4; O2SAT 99
== END 2023-06-01 16:48 | disposition home or self-care (01) ==
LOC: SUR 10:56
PROVIDERS: PCP Internal Medicine; Visit Provider Surgery
PROC: 0HB1XZZ Excision of Face Skin, External Approach (ICD-10-PCS; principal; 2023-06-01 13:00)
DX: L98.8 Other specified disorders of the skin and subcutaneous tissue (principal); D22.39 Melanocytic nevi of other parts of face; L72.0 Epidermal cyst
CPT/HCPCS: 11441; 11442; 88305; J2250

== ENCOUNTER → 2023-06-10 09:29 | Outpatient (BNVA) | payer MEDICARE, SELFPAY | PROVIDERS: PCP Internal Medicine; Referring Provider Internal Medicine; Visit Provider Surgery | DX: D23.39 Other benign neoplasm of skin of other parts of face (principal); Z87.2 Personal history of diseases of the skin and subcutaneous tissue; Z98.890 Other specified postprocedural states ==

== ENCOUNTER 2023-07-11 05:21 | Outpatient (CLI) | payer MEDICARE, SELFPAY ==
[2023-07-11 14:08] LABS: Albumin 3.8 g/dL (3.4-5.0); Calcium 9.9 mg/dL (8.5-10.1); PHOSPHORUS 3.8 mg/dL (2.6-4.7)
[2023-07-11 14:13] LABS: Hemoglobin A1C 7.3 % (<5.7)
[2023-07-11 14:31] LABS: Vitamin D 25 Total 35.8 ng/mL (30-100)
[2023-07-11 23:32] LABS: Parathyroid Hormone,Intact 61 pg/mL (19-88)
== END 2023-07-11 05:22 | disposition home or self-care (01) ==
LOC: LBO 05:21
PROVIDERS: PCP Family Medicine; Visit Provider Student in an Organized Health Care Education/Training Program
DX: E10.649 Type 1 diabetes mellitus with hypoglycemia without coma (principal); E55.9 Vitamin D deficiency, unspecified
CPT/HCPCS: 36415; 82306; 82040; 82310; 83036; 83970; 84100

== ENCOUNTER 2023-11-30 05:25 | Outpatient (CLI) | payer MEDICARE, SELFPAY ==
[2023-11-30 12:28] LABS: Anion Gap 8.9 mmol/L (3-11); BUN 20 mg/dL (7-18); CO2 30.1 mmol/L (21.0-32.0); CREATININE 0.9 mg/dL (0.55-1.02); Calcium 9.7 mg/dL (8.5-10.1); Chloride 106 mmol/L (98-107); Cholesterol 142 mg/dL (<200); Estimated GFR 70.51 (mL/min/1.73m2); Glucose 118 mg/dL (74-106); HDL Cholesterol 79 mg/dL (40-60); Potassium 4.1 mmol/L (3.5-5.1); Sodium 145 mmol/L (136-145)
[2023-11-30 12:31] LABS: Triglyceride <25 mg/dL (<150)
[2023-11-30 12:42] LABS: LDL CHOLESTEROL 56 mg/dL (<100)
[2023-11-30 12:49] LABS: COMMENT (LAB VIEW ONLY) 52.17 mg/dL; Microalb ug/mg Crea 6.5 ug/mg Cr
== END 2023-11-30 05:26 | disposition home or self-care (01) ==
LOC: LOS 05:25
PROVIDERS: PCP Family Medicine; Visit Provider Student in an Organized Health Care Education/Training Program
DX: E10.649 Type 1 diabetes mellitus with hypoglycemia without coma (principal)
CPT/HCPCS: 36415; 80048; 80061; 83721; 82043; 82570; 83036

== ENCOUNTER 2024-04-18 12:40 | Emergency (ER) | payer MEDICARE, SELFPAY ==
[2024-04-18] VITALS (22 sets, daily range): BP systolic 120–134; BP diastolic 61–77; PULSE 62–88; RESP 11–25; TEMP 36.1–36.4; O2SAT 96–100
--- OUTSIDE RECORDS SUMMARY | 2024-04-18 13:12 | XMS_ITS | Encounter Summary ---
[place] [address] Care Team Providers Care Chandelier Maker Name Role Phone Mitchell Yap MD Primary Care Provider [phone] Reason for Visit * Reason Onset Date Comments Pump/sensor 04/29/2023 Encounter Details Date Type Department Care Team (Late st Contact Info) Description 04/29/2023 [place] [phone] Namita Cordero Pump/sensor Social History Tobacco Use Types Packs/Day Years Used Date Smoking Tobacco: Former Cigarettes Smokeless Tobacco: Never Comments:quit 1977 Alcohol Use Standard Drinks/Week Comments Not Currently 0 (1 standard drink = 0.6 oz pur e alcohol) Stopped Feb 17, 2018 Sex and Gender Information Value Date Recorded Sex Assigned at Female 11/02/2020 3:40 PM EDT Gender Identity Female 11/02/2020 3:40 PM EDT Sexual Orientation Straight 11/02/2020 3: 40 PM EDT documented as of this encounter Miscellaneous Notes * Telephone Encounter - Dominga Hu - 06/03/2023 3:54 PM EST Faxed and confirmed to [facility] [phone] * Telephone Encounter - Namita Cordero - 04/29/2023 1:43 PM EDT 12/08/22 & 02/21/23 office notes routed Fax number: [phone] documented in this encounter Plan of Treatment Upcoming Encounters Date Type Department Care Team (Late st Contact Info) Description 06/05/2024 10:15 AM EST Office [place] [address] Namita Bansal MD [facility] [place] [address] documented as of this encounter Goals Goal Patient Goal Type Associated Problems Recent Progress Patient-Stated? Author Exercise 3x per week (30 min per time) Exercise No Keila Arango CDE documented as of this encounter Visit Diagnoses Not on filedocumented in this encounter Care Teams Chandelier Maker Relationship Specialty Start Date End Date Mitchell Yap MD [address] [place] [address] PCP - General 05/19/10 07/17/23 documented as of this encounter
--- OUTSIDE RECORDS SUMMARY | 2024-04-18 13:12 | XMS_ITS | Encounter Summary ---
Author Organization [facility] [place] [address] Care Team Providers Care Shoe Folder Name Role Phone Corby Yanecy MD Primary Care Provider [phone] Reason for Visit * Reason Onset Date Comments Pump/sensor 08/31/2023 Encounter Details Date Type Department Care Team (Late st Contact Info) Description 08/31/2023 Telephone [place] [phone] Namita Cordero Pump/sensor Social History Tobacco Use Types Packs/Day Years Used Date Smoking Tobacco: Former Cigarettes Smokeless Tobacco: Never Comments:quit 1977 Alcohol Use Standard Drinks/Week Comments Not Currently 0 (1 standard drink = 0.6 oz pur e alcohol) Stopped Feb 17, 2018 [facility] Inpatient Questions Answer Date Recorded Does Anyone Try to Keep You From Having Contact with Others or Doing Things Outside Your Home? no 07/04/2023 Feels Threatened by Someone no 01/2024 Feels Unsafe at Home or Work/School no 07/04/2023 Physical Signs of Abuse Present no 07/04/2023 Sex and Gender Information Value Date Recorded Sex Assigned at Female 11/02/2020 3:40 PM EDT Gender Identity Female 11/02/2020 3:40 PM EDT Sexual Orientation Straight 11/02/2020 3: 40 PM EDT documented as of this encounter Miscellaneous Notes * Telephone Encounter - Lana Yancey - 09/05/2023 12:48 PM EDT Chloe with [facility] called checking the status on the statement of medical necessity and prescription order and office notes from [facility]. * Telephone Encounter - Namita Cordero - 09/05/2023 11:18 AM EDT Statement of medical necessity and prescription order from [facility]. Filled out. 08/22/[address] Soler will sign. Secretaries will fax. * Telephone Encounter - Namita Cordero - 08/31/2023 12:46 PM EST Received SMN from [facility] Will complete as soon as possible documented in this encounter Plan of Treatment Upcoming Encounters Date Type Department Care Team (Late st Contact Info) Description 06/05/2024 10:15 AM EST Office Visit [place] [phone] Namita Bansal MD [facility] [place] [address] documented as of this encounter Goals Goal Patient Goal Type Associated Problems Recent Progress Patient-Stated? Author Exercise 3x per week (30 min per time) Exercise No Keila Arango CDE documented as of this encounter Visit Diagnoses Not on filedocumented in this encounter Care Teams Shoe Folder Relationship Specialty Start Date End Date Corby Yancey MD [address] [place] [address] PCP - General Family Medicine 07/18/23 documented as of this encounter
--- OUTSIDE RECORDS SUMMARY | 2024-04-18 13:12 | XMS_ITS | Encounter Summary ---
[place] [address] Care Team Providers Care Wind Field Manager Name Role Phone Mitchell Yap MD Primary Care Provider [phone] Reason for Visit * Auth/Cert (Routine) Specialty Diagnoses / Procedures Referred By Malka t Referred To Contact Diagnoses trigger finger Procedures PRO INCISE FINGER TENDON SHEATH TENDON SHEATH INCISION (TRIGGER FINGER) (WRVU 3.11) Jean Diehl MD [facility] [place] [address] [facility] Referral ID Status Reason Start Date Expiration Date Visits Re quested Visits Authorized [id number] 1 1 Encounter Details Date Type Department Care Team (Latest Contact Info) Description 07/04/2023 12:50 PM EST - 07/04/2023 4:20 PM EST Hospital Encounter Outpatient [place] [id number] Jean Diehl MD [facility] [place] [address] Trigger finger, unspecified finger, unspecified laterality Discharge Disposition: Home Social History Tobacco Use Types Packs/Day Years Used Date Smoking Tobacco: Former Cigarettes Smokeless Tobacco: Never Comments:quit 1977 Alcohol Use Standard Drinks/Week Comments Not Currently 0 (1 standard drink = 0.6 oz pur e alcohol) Stopped Feb 17, 2018 [facility] IPV Inpatient Questions Answer Date Recorded Does Anyone [...] PM EDT documented as of this encounter Last Filed Vital Signs Vital Sign Reading Time Taken Comments Blood Pressure 126/52 07/04/2023 4:00 PM EST Pulse 66 07/04/2023 4:10 PM EST Temperature 36.4 ??C (97.5 ??F) 07/04/2023 3:26 PM ES T Respiratory Rate 16 07/04/2023 3:45 PM EST Oxygen Saturation 100% 07/04/2023 4:10 PM EST Inhaled Oxygen Concentration - - Weight 57.6 kg (127 lb) 07/04/2023 1:08 PM EST Height 149.9 cm (4' 11) 07/04/2023 1:08 PM EST Body Mass Index 25.65 07/04/2023 1:08 PM EST documented in this encounter Discharge Instructions * Discharge Instructions* Tamika Parisi RN - 07/04/2023 1:13 PM EST General Anesthesia Discharge Instructions Go home and rest. You may be sleepy for several hours. Take it easy as sudden position changes may cause nausea and/or dizziness. Use caution on stairs. Follow a light to regular diet as tolerated today. If nausea occurs, start with clear liquids, and progress slowly to a regular diet. Do not drive, operate machinery, drink alcoholic beverages or make any legal decisions after havinggeneral anesthesia. The medications given change your reaction time and alter your judgement. IV site -- slight redness is normal, you can use warm compresses. If tenderness and redness increases or foul drainage occurs, please contact your M.D. Patients who have had endotracheal tubes/LMA (tubes used by the anesthesia staff to ensure a safe airway during your operation) may have a sore throat. This is normal and cold liquids or soothing lozenges will help ease this discomfort. Narcotic pain medications can cause constipation, please ask the surgeons office what they recommend for prevention of this. Some non-pharmaceutical means of constipation prevention include increasing intake of fluids, eating more fruits and vegetables as well as fruit juices. If you are uncomfortable and/or unable to urinate within 8 hours of discharge and it is before 5 pm, call your physician. If it is after 5pm go to the closest emergency room or call the hospital bench assembler operator at [phone] and ask for physician long term acute care registered nurse covering for your physician. Questions or problems after 5pm or on a weekend: Call the [facility] bench assembler operator at and ask for the physician long term acute care registered nurse covering for your doctor. You received a strong NSAID medication at the end of your procedure, Ketorolac 15 mg IV at 3:22 pm.Next dose of Ibuprofen can be taken in 6 hours at 9:30 pm. * Patient Instructions* Neida Palacio MD - 07/04/2023 1:31 PM EST Orthopaedic Hand Surgery Same Day Discharge Instructions: General Activities Diet: Start light and progress as tolerated. No alcoholic beverages on the day of surgery or while taking narcotics. If taking narcotics, make sure you are getting plenty of fluids and fiber. In general, care should be taken the first several days following surgery to limit strenuous activity. You want to avoid any activities that you may lose your balance, slip, trip, fall or re-injure your surgery. You may shower tomorrow. Cover your dressing/cast with a plastic bag to keep it dry. No driving while taking narcotic medications or wearing a device (splint, cast, sling, brace) that limits joint mobility. When you feel you can safely control your vehicle and respond to unpredictable situations you may resume driving. Hand Use Decreased sensation for several hours following surgery is often from the local anesthesia used during the procedure. This will resolve on its own. If a regional anesthetic was used, wear your sling until you regain full function of your limb, andkeep a close eye on the positioning of your arm and hand. When you have regained function and sensation you may then remove the sling. Do not use your operative hand for any lifting, pushing or pulling. You may move your elbow and shoulder as tolerated. Gentle exercises with any exposed fingers are encouraged and gently opening and closing the digits will keep the joints flexible. Specific activities and exercises will be discussed at your first postoperative visit. Ice and elevation Some swelling is expected after surgery. Ice and elevation are the best remedies to reduce swellingand pain. Keep your hand properly elevated above the level of the heart i.e., fingers above palm, palm above the wrist, wrist above the elbow. Use pillows to increase elevation. Intermittently apply ice to the outside of the dressing for 20 minutes 6-8 times a day. You will want to ice and elevate for 5-7 days after surgery or as long as it hurts. Do not rely on a sling as it does not sufficiently elevate your hand. For proper elevation while walking around place your surgical hand on your opposite shoulder. Dressing/ Wound: The post-op dressing, splint or cast is a very important part of your treatment. If you have any questions please call us for clarification. If your dressing becomes wet or damaged please call the office. No creams, lotions or ointments on your incision. Keep steri-strips in place. They will fall off ontheir own Keep your dressing on and dry for 48 hours then you may remove. Cover your suture/incision with a Band-Aid and change as needed. Keep your incision clean and dry until follow-up appointment. Pain Management Most patients only require narcotics for a short period of time. Ice and elevation is an effective and important modality to use in conjunction with your oral pain medication. In a day or two you maybe ready to start decreasing the amount of pain medication your taking. Pain medication is to be taken on an ???as needed?if needed?? basis. Remember to start with the least amount and evaluate its effectiveness. You should not drink alcoholic beverages while on pain medication. If tolerated, please take Tylenol three times a day in conjunction with the narcotic as they complement each other. Once pain is better controlled, you may simply take extra strength Tylenol, one to two tablets every six hours as needed. Do not exceed 3,000 mg in 24 hours. The most common side effects of narcotic pain medications are nausea and constipation. To decrease nausea always take pain medication with food. If you are experiencing vomiting, please call us rightaway. To minimize constipation, drink plenty of fluids, eat a high fiber diet with plenty of fruitsand vegetables, and take a stool softener or laxative as needed. You may take an anti-inflammatory medication such as Ibuprofen/Advil/Motrin or Naproxen/Aleve. Refer to the medication bottles for daily allowance and dosing. Discontinue if it causes stomach upset. Contact Information: During clinic hours M-F 8-4:30 please call [phone] If it is after 5:00PM on a weekday or a weekend and it is of an urgent nature please call [phone] and ask for the on-call orthopaedic resident. Call if: You have a fever greater than 101 F or experience chills Increased drainage from incision Redness or extreme swelling around incision Increased pain or change in pain that is not controlled with elevation, ice and your pain medication. Any questions concerns related to surgery documented in this encounter Medications at Time of Discharge Medication Sig Dispensed Refills Start Date End Date Lantus U-100 Insulin 100 unit/mL Solution INJECT 10 UNITS SUBCUTANEOUSLY NEEDED (IF PUMP IS NOT WORKING). WORKS FOR 24 HOURS. 10 mL 1 05/26/2023 dexlansoprazole (Dexilant) [address] capsule Take 30 mg by mouth daily. 08/25/2022 calcium carbonate/vitamin D3 (CALCIUM WITH VITAMIN D3 ORAL) Take by mouth daily. ProAir HFA 90 mcg/actuation HFA Aerosol Inhaler INHALE 1-2 PUFFS BY MOUTH EVERY 4 HOURS NEEDED 03/22/2022 aspirin EC 81 mg Tablet, Delayed Release (E.C.) every other day. cholecalciferol (Vitamin D3) 1,000 unit Tablet Take 2,000 Units by mouth daily. atorvastatin (Lipitor) 20 mg Tablet TAKE ONE TABLET BY MOUTH AT BEDTIME 02/24/2021 glucagon, Human Recombinant, 1 mg Recon Soln as needed. 10/19/2018 pantoprazole EC (Protonix) 40 mg Tablet, Delayed Release (E.C.) TAKE ONE TABLET BY MOUTH EVERY DAY 10/10/2020 zoledronic tste-ipcnihdb-pbnmt (zoledronic Acid) 5 mg/100 mL IV solution Inject 5 mg into the vein. Yearly insulin needles, disposable, (BD ULTRA-FINE SHORT PEN NEEDLE) 31 gauge x 5/16 Needle 1 Box by [facility]Non-Drug; Combo Route) route 4 times daily. Box of 100 1 each 3 06/26/2019 MAGNESIUM ORAL Take by mouth daily. acetaminophen (TYLENOL) 500 mg Tablet Take 1,000 mg by mouth every 6 hours as needed for Pain. ibuprofen (ADVIL;MOTRIN) 200 mg Tablet Take 600 mg by mouth daily as needed for Pain. Diabetic Supplies, Miscellan. [facility] [place] faxed to [employer] 100 each 12 02/24/2017 Diabetic Supplies, Miscellan. [facility] [place] fax[place] to [facility] 100 each 12 01/17/2017 ADVAIR DISKUS 100-50 mcg/dose Disk with Device Inhale 1 puff into the lungs daily. 11/23/2016 Diabetic Supplies, Miscellan. [facility] [place] fax[place] [facility] for insulin pump supplies 1 each 3 01/05/2016 multivitamin with minerals (THERA-M) 9-0.4 mg Tablet Take 1 tablet by mouth daily. lisinopril (PRINIVIL;ZESTRIL) 20 mg Tablet Take 1 tablet by mouth daily. 30 tablet 09/25/2014 traMADoL (Ultram) 50 mg tablet Take 1 tablet by mouth every 6 hours as needed. 5 tablet 07/04/2023 08/22/2023 insulin lispro (humaLOG) 100 unit/mL SolutionIndications: Type 1 diabetes mellitus without complication, with intermediate frame tender current use of insulin pump INJECT 60 UNITS every 3 days UNDER THE SKIN CONTINUOUS VIA PUMP 50 mL 1 05/26/2023 12/05/2023 ferrous sulfate EC (FeroSul) 325 mg (65 mg iron) DR tablet Take 325 mg by mouth daily. 08/22/2023 Contour Next Test Strips Strip TEST 8 TIMES A DAY 700 strip 2 03/01/2023 11/02/2023 documented as of this encounter Progress Notes * Tamika Parisi, RN - 07/04/2023 3:51 PM EST Pt arrived to Recovery slightly drowsy but talkative, VSS, R hand dressing CDI, fingers pink, slightly cool, cap refill <3, pt endorsed numbness/tingling. Pt's BS per insulin pump 107 on arrival. Pt denied pain or nausea, tolerated sips water, ate cheese/nut snack she brought from home. Pt's Issa to bedside, all D/C instructions reviewed. Pt and verbalized understanding. Written copy of instructions provided. PIV removed intact. Pt ambulated to bathroom, voided. Patient ambulated to car for discharge accompanied by [facility] staff member. documented in this encounter H&P Notes * Neida Palacio MD - 07/04/2023 1:30 PM EST 24-HOUR H&P UPDATE Ebonie Sol was seen and evaluated. No interval events or changes in health status since preoperative H+P. Denies angina, dyspnea, fevers, chills, or malaise within the last 14 days. All questions were answered. Stable for surgery as scheduled. Alert and oriented RRR CTAB Ebonie Sol is a 68 y.o. female pended for right ring finger A1 jeannette release. Neida Palacio MD Orthopaedic Surgery [facility] documented in this encounter Miscellaneous Notes * Op Note - Jean Diehl MD - 07/04/2023 3:05 PM EST [facility] [place] Patient Name: Ebonie Sol : [id number] MR#: [id number] Case Date: 07/04/2023 Surgeon: Surgeon(s) and Role: * Jean Diehl MD - Primary * Neida Palacio MD - Resident - Assisting Preoperative diagnosis: Locked right ring trigger finger Postoperative diagnosis: Locked right ring trigger finger Procedure Performed: A1 jeannette release right ring finger. Anesthesia: Local with sedation. Operative Indication: The patient is a 68 y.o.-year-old Female who presents with a locked right ring trigger finger due to tight flexor stenosing tenosynovitis at the A1 jeannette level of Her right ring finger. She was brought to the operating room for A1 jeannette release. Summary of Procedure: After 600mg of intravenous clindamycin was administered, the patient's right upper extremity was prepped with a Hibiclens scrub and a ChloraPrep. Her right arm was draped in a sterile fashion. A preoperative timeout was performed as per [facility] [place]. Then 2 mL of 2% lidocainewith epinephrine buffered with sodium bicarbonate was injected subcutaneously over the A1 jeannette level of her right ring finger. Her right arm was exsanguinated with an Esmarch bandage and a brachialtourniquet was inflated to 200mm Hg. An incision was made through an existing crease overlying the A1 jeannette of her right ring finger. Subcutaneous spreading was performed in the palmar midline over the flexor sheath at the A1 jeannette level. Great care was taken throughout this procedure to avoid injury to the digital neurovascular bundles. The A1 jeannette was exposed. It was sharply transected over its entire course under direct vision with tenotomy scissors. The FDP and FDS tendons were brought into the incision site. Synovium was debrided from the flexor tendons. Synovium was sent to pathology for routine biopsy and to evaluate for amyloid deposition. The site was now copiously irrigated. She was asked to move her right ring finger and she could do so freely without triggering or locking although she has residual IP joint stiffness. The incision site was copiously irrigated. The skin was closed with 4-0 nylon suture. A sterile soft dressing was applied. The tourniquet was released with a total tourniquet time of 11 minutes. All digits rapidly became pink and warm with brisk capillary refill. She was transferred to the recoveryroom in stable condition. Estimated blood loss was minimal. IV replacement was 500 mL of crystalloid. She tolerated the procedure well without apparent complications. Attestation: Case Date: 07/04/2023 I was present and I participated during the entire procedure (does not need to include opening and closing). JEAN DIEHL MD 07/04/2023 * Brief Op Note - Jean Diehl MD - 07/04/2023 2:43 PM EST Brief Operative Note Patient Name: Ebonie Sol : [id number] MR#: [id number] Case Date: 07/04/2023 Surgeon: Surgeon(s) and Role: * Jean Diehl MD - Primary * Neida Palacio MD - Resident - Assisting Preoperative diagnosis: Locked right ring trigger finger Postoperative diagnosis: Locked right ring trigger finger Procedure(s) (LRB): TENDON SHEATH INCISION (TRIGGER FINGER) (WRVU 3.11) (N/A) Anesthesia: MAC Complications: None Intake: 500cc crystalloid Output: Estimated Blood Loss: None Urine Output:: (no urine output recorded) Other Output: (no other output recorded) Drains: None Specimens removed during surgery: None Disposition: aroused from sedation, and taken to the recovery room in a stable condition Condition: doing well without problems Attestation: Case Date: 07/04/2023 I was present and I participated during the entire procedure (does not need to include opening and closing). documented in this encounter Plan of Treatment Upcoming Encounters Date Type Department Care Team (Late st Contact Info) Description 06/05/2024 10:15 AM EST Office [place] [address] Namita Bansal MD [facility] [place] [address] documented as of this encounter Goals Goal Patient Goal Type Associated Problems Recent Progress Patient-Stated? Author Exercise 3x per week (30 min per time) Exercise Keila Espinoza CDE documented as of this encounter Procedures Procedure Name Priority Date/Time Associated Diagnosis Comments SURGICAL PATHOLOGY REPORT Routine 07/04/2023 3:16 PM EST SPECIMEN TO PATHOLOGY Routine 07/04/2023 3:16 PM EST SPECIMEN TO PATHOLOGY Routine 07/04/2023 3:16 PM EST Incise Finger Tendon Sheath (16787) 07/04/2023 2:54 PM EST Trigger finger, unspecified finger, unspecified laterality POCT GLUCOSE Routine 07/04/2023 1:52 PM EST TENDON SHEATH INCISION (TRIGGER FINGER) Routine 07/04/2023 1:01 PM EST Trigger finger, unspecified finger, unspecified laterality documented in this encounter Results * Surgical Pathology Report (07/04/2023 3:16 PM EST) Final Diagnosis [id number] ? Location: [facility] The signing pathologist has (i) examined the relevant preparation(s) for the specimen(s) and (ii) rendered or confirmed the diagnosis(es). . ?Surgical Pathology DIAGNOSIS A - Flexor tenosynovium, right ring finger, ?excision: - Synovium with mild hyperplastic changes and focal fibrosis. - No significant inflammatory infiltrate identified. B - Flexor tenosynovium, right ring finger, excision: - Synovium with mild hyperplastic changes and focal fibrosis. - No significant inflammatory infiltrate identified. Electronically signed by: ?Sahara Tejeda MD Verified: ??07/07/2023 17:26 ??Pathologist Performed at: ??[facility] [place], [place] [address] Academic Affairs Director: Alon Tamayo MD, FCAP, ??CLIA Certificate: [id number] ADDITIONAL STUDIES Special Stains: Formalin-fixed, paraffin-embedde d tissue sections are studied with appropriate positive controls. Block ? Special Stain ? Result (Positive/Negati ve) A1 ?[place] red ? Negative for amyloid. SPECIMEN(S) SUBMITTED A - Flexor tenosynovium, right ring finger for congo red stain and Amyloid deposition disease, excision (1) B - Flexor tenosynovium, right ring finger, excision (1) CLINICAL INFORMATION Trigger finger SPECIMEN PROCESSING A - Labeled/Fixative : Flexor tenosynovium right ring finger for [place] red stain and amyloid deposition disease, formalin. Quantity/Size: Single, 0.6 cm. Tissue Description: Soft, pink-white tissue. Sections/Process ing: Submitted in toto ??in 1 cassette labeled A1. B - Labeled/Fixative : Flexor tenosynovium right ring finger, formalin. Quantity/Size: Single, 0.8 cm. Tissue Description: Soft, pink-white tissue. Sections/Process ing: Submitted in toto ??in 1 cassette labeled B1. ??sns 07/07/2023 5:26 PM EST [facility] SYNOVIUM BIOPSY SPECIMEN / Unknown 07/04/2023 3:16 PM EST 07/04/2023 3:16 PM EST SYNOVIUM BIOPSY SPECIMEN / Unknown 07/04/2023 3:16 PM EST 07/04/2023 3:16 PM EST Jean Diehl MD PATHOLOGY/CYTOLOGY O [facility]AN [facility] [place], [place] [id number] [place] [address] [place] [address] * Specimen to Pathology (07/04/2023 3:16 PM EST) AP Specimen 07/04/2023 3:16 PM EST 07/04/2023 3:16 PM EST Narrative [facility] - 07/04/2023 3:16 PM EST Specimen requisition ordered. ??Separate Pathology report to follow Jean Diehl MD PATHOLOGY/CYTOLOGY O SAJ[facility] [place] [address] * Specimen to Pathology (07/04/2023 3:16 PM EST) AP Specimen 07/04/2023 3:16 PM EST 07/04/2023 3:16 PM EST Narrative [facility] - 07/04/2023 3:16 PM EST Specimen requisition ordered. ??Separate Pathology report to follow Jean Diehl MD PATHOLOGY/CYTOLOGY O SAJAN Performing Organization Address City/[facility]/ZIP Co de Phone Number [facility] [place] [address] * POCT Glucose (07/04/2023 1:52 PM EST) Glucose, POC 103 65 - 199 mg/dL [facility] Comment: Supplemental ranges: <140 mg/dL before meals <180 mg/dL all other times of the day Blood 07/04/2023 1:52 PM EST 07/04/2023 1:52 PM EST Jean Diehl MD POINT OF CARE TEST O SAJAN Performing Organization Address [facility] Co de Phone Number [facility] [place] [address] documented in this encounter Visit Diagnoses Diagnosis Trigger finger, unspecified finger, unspecified laterality documented in this encounter Administered Medications Inactive Administered Medications - up to 3 most recent administrations Medication Order MAR Action Action Date Dose Rate Site lactated ringers infusion 1,000 mL, at 100 mL/hr, Intravenous, CONTINUOUS, Starting on Tue07/04/23 at 1330, Until Tue07/04/23 at 1622, Day of Surgery (Day of Procedure) Restarted 07/04/2023 2:55 PM EST New Bag 07/04/2023 1:45 PM EST 1,000 mLs 100 mL/hr documented in this encounter Active and Recently Administered Medications Times are shown in EST. Continuous Medication Order 07/02/2023 07/03/2023 07/04/2023 lactated ringers infusion (CANCELED) 1,000 mL, at 100 mL/hr, Intravenous, CONTINUOUS, Starting on Tue07/04/23 at 1330, Until Tue07/04/23 at 1622, Day of Surgery (Day of Procedure) 1345 (New Bag - Prov ider: Ailyn Villanueva RN)1454 (Paused - Provider: Lorraine Humphrey CRNA - Comment: Switch to gravity)1455 (Restarted - Provider: Lorraine Humphrey CRNA) PRN Medication Order 07/02/2023 07/03/2023 07/04/2023 lidocaine-EPINEPHrine (pf) (2% - 1:200,000) injection (CANCELED) PRN, Starting on 07/04/23 at 1525, Until 07/04/23 at 1823, Intra-Operative (Intra-Procedure), Routine 1525 (Given - Provid er: Jean Diehl MD - Comment: 10 mls mixed w/ 1 ml of 8.4% sodium bicar. Total of 2 mls given) sodium bicarbonate 8.4 % (1 meq/ml) IV solution (CANCELED) PRN, Starting on 07/04/23 at 1526, Until 07/04/23 at 1823, Intra-Operative (Intra-Procedure), Routine 1526 (Given - Provid er: Jean Diehl MD - Comment: 1 ml mixed w/ 2% lido w/ epi [id number]. Total 2 ml given) documented in this encounter Care Teams Wind Field Manager Relationship Specialty Start Date End Date Mitchell Yap MD [address] [place] [address] PCP - General 05/19/10 07/17/23 documented as of this encounter
--- OUTSIDE RECORDS SUMMARY | 2024-04-18 13:12 | XMS_ITS | Encounter Summary ---
Author Organization [place] [address] Care Team Providers Care Sheet Metal Duct Installer Helper Name Role Phone Corby Yancey MD Primary Care Provider [phone] Reason for Visit * Reason Comments Medication Refill Encounter Details Date Type Department Care Team (Late st Contact Info) Description 10/30/2023 Refill [place] [address] Geoffrey Soler MD [facility] [place] [address] Social History Tobacco Use Types Packs/Day Years Used Date Smoking Tobacco: Former Cigarettes Smokeless Tobacco: Never Comments:quit 1977 Alcohol Use Standard Drinks/Week Comments Not Currently 0 (1 standard drink = 0.6 oz pur e alcohol) Stopped Feb 17, 2018 [facility] Inpatient Questions Answer Date Recorded Does Anyone [...] PM EDT documented as of this encounter Plan of Treatment Upcoming Encounters Date Type Department Care Team (Late st Contact Info) Description 06/05/2024 10:15 AM EST Office Visit [place] [address] Namita Bansal MD [facility] [place] [address] documented as of this encounter Goals Goal Patient Goal Type Associated Problems Recent Progress Patient-Stated? Author Exercise 3x per week (30 min per time) Exercise No Keila Arango, VELMAE documented as of this encounter Visit Diagnoses Not on filedocumented in this encounter Care Teams Sheet Metal Duct Installer Helper Relationship Specialty Start Date End Date Corby Yancey MD [address] [place] [address] PCP - General Family Medicine 07/18/23 documented as of this encounter
--- OUTSIDE RECORDS SUMMARY | 2024-04-18 13:12 | XMS_ITS | Encounter Summary ---
Author Organization [place] [address] Care Team Providers Care Pediatrician Name Role Phone Corby Yancey MD Primary Care Provider [phone] Encounter Details Date Type Department Care Team (Late st Contact Info) Description 09/06/2023 [place] [id number] Natalia Cardona Social History Tobacco Use Types Packs/Day Years Used Date Smoking Tobacco: Former Cigarettes Smokeless Tobacco: Never Comments:quit 1977 Alcohol Use Standard Drinks/Week Comments Not Currently 0 (1 standard drink = 0.6 oz pur e alcohol) Stopped Feb 17, 2018 [facility] Inpatient Questions Answer Date Recorded Does [...] 10:15 AM EST [place] [address] Namita Bansal MD [facility] [place] [address] documented as of this encounter Goals Goal Patient Goal Type Associated Problems Recent Progress Patient-Stated? Author Exercise 3x per week (30 min per time) Exercise No Keila Arango CDE documented as of this encounter Visit Diagnoses Not on filedocumented in this encounter Care Teams Pediatrician Relationship Specialty Start Date End Date Corby Yancey MD [address] [place] [address] PCP - General Family Medicine 07/18/23 documented as of this encounter
--- OUTSIDE RECORDS SUMMARY | 2024-04-18 13:12 | XMS_ITS | Encounter Summary ---
[place] [address] Care Team Providers Care Logistics Program Manager Name Role Phone Mitchell Yap MD Primary Care Provider [phone] Reason for Visit * Auth/Cert (Routine) Specialty Diagnoses / Procedures Referred By Malka t Referred To Contact Diagnoses trigger finger Procedures PRO INCISE FINGER TENDON SHEATH TENDON SHEATH INCISION (TRIGGER FINGER) (WRVU 3.11) Jean Diehl MD [facility] [place] [address] [facility] Referral ID Status Reason Start Date Expiration Date Visits Re quested Visits Authorized [id number] 1 1 Encounter Details Date Type Department Care Team (Late st Contact Info) Description 07/04/2023 3:40 PM EST - 07/04/2023 4:28 PM EST Surgery [place] [phone] Jean Diehl MD [facility] [place] [address] TENDON SHEATH INCISION (TRIGGER FINGER) (WRVU 3.11) Social History Tobacco Use Types Packs/Day Years [...] closest emergency room or call the hospital snow plow operator at [phone] and ask for physician relationship manager covering for your physician. Questions or problems after 5pm or on a weekend: Call the [facility] snow plow operator at and ask for the physician relationship manager covering for your doctor. You received a [...] During clinic hours M-F 8-4:30 please call [phone] If it is after 5:00PM on a weekday or a weekend and it is of an urgent nature please call [phone] and ask for the on-call orthopaedic resident. [...] TABLET BY MOUTH EVERY DAY 10/10/2020 [employer] [id number] (zoledronic Acid) 5 mg/100 mL IV solution Inject 5 mg into the vein. Yearly insulin needles, disposable, (BD ULTRA-FINE SHORT PEN NEEDLE) 31 gauge x 5/16 Needle 1 Box by [facility].(Non-Drug; Combo Route) route 4 times daily. Box of 100 1 each 3 06/26/2019 MAGNESIUM ORAL Take by mouth daily. acetaminophen (TYLENOL) 500 mg Tablet Take 1,000 mg by mouth every 6 hours as needed for Pain. ibuprofen (ADVIL;MOTRIN) 200 mg Tablet Take 600 mg by mouth daily as needed for Pain. Diabetic Supplies, Miscellan. [facility] CMN form faxed to [employer] 100 each 12 02/24/2017 Diabetic Supplies, Miscellan. [facility] PWO faxed to [facility] Medical 100 each 12 01/17/2017 ADVAIR DISKUS 100-50 mcg/dose Disk with Device Inhale 1 puff into the lungs daily. 11/23/2016 Diabetic Supplies, Miscellan. [facility] Form faxed to [facility] for insulin pump supplies 1 each 3 [...] Type 1 diabetes mellitus without complication, with detention current use of insulin pump INJECT 60 [...] jeannette release. Neida Palacio MD Orthopaedic Surgery [facility] documented in this encounter Miscellaneous Notes * Op Note - Jean Diehl MD - 07/04/2023 3:05 PM EST [facility] Patient Name: Ebonie Sol : [id number] MR#: [id number] Case Date: 07/04/2023 Surgeon: Surgeon(s) and Role: [...] A preoperative timeout was performed as per [facility]. Then 2 mL of 2% lidocainewith [...] Operative Note Patient Name: Ebonie Sol : [id number] MR#: [id number] Case Date: 07/04/2023 Surgeon: Surgeon(s) and Role: [...] 10:15 AM EST Office Visit [place] [address] Namita Bansal MD [facility] [place] [address] documented as of this encounter Goals Goal [...] 3:16 PM EST Incise Finger Tendon Sheath (89849) 07/04/2023 2:54 PM EST Trigger finger, unspecified finger, unspecified laterality POCT GLUCOSE Routine 07/04/2023 1:52 PM EST TENDON SHEATH INCISION (TRIGGER FINGER) Routine 07/04/2023 1:01 PM EST Trigger finger, unspecified finger, unspecified laterality documented in this encounter Results * Surgical Pathology Report (07/04/2023 3:16 PM EST) Final Diagnosis [id number] ? Location: [facility] The signing pathologist has [...] MD Verified: ??07/07/2023 17:26 ??Pathologist Performed at: ??-[facility] [place]ology, [place] [address] Carpenter Rough: Alon Tamayo MD, FCAP, ??CLIA Certificate: [id number] ADDITIONAL STUDIES Special Stains: Formalin-fixed, paraffin-embedde d [...] labeled B1. ??sns 07/07/2023 5:26 PM EST [facility] SYNOVIUM BIOPSY SPECIMEN / Unknown 07/04/2023 3:16 PM EST 07/04/2023 3:16 PM EST SYNOVIUM BIOPSY SPECIMEN / Unknown 07/04/2023 3:16 PM EST 07/04/2023 3:16 PM EST Jean Diehl MD PATHOLOGY/CYTOLOGY [facility] LABORATORY [place], [place] [id number] [place] [address] [place] [address] * Specimen to Pathology (07/04/2023 3:16 PM EST) AP Specimen 07/04/2023 3:16 PM EST 07/04/2023 3:16 PM EST Narrative [facility] - 07/04/2023 3:16 PM EST Specimen requisition ordered. ??Separate Pathology report to follow Jean Diehl MD PATHOLOGY/CYTOLOGY [facility] [address] * Specimen to Pathology (07/04/2023 3:16 PM EST) AP Specimen 07/04/2023 3:16 PM EST 07/04/2023 3:16 PM EST Narrative [facility] - 07/04/2023 3:16 PM EST Specimen requisition ordered. ??Separate Pathology report to follow Jean Diehl MD PATHOLOGY/CYTOLOGY [facility] Performing Organization Address City/[facility] [place] [address] * POCT Glucose (07/04/2023 1:52 PM EST) Glucose, POC 103 65 - 199 mg/dL [facility] Comment: Supplemental ranges: <140 mg/dL before meals <180 mg/dL all other times of the day Blood 07/04/2023 1:52 PM EST 07/04/2023 1:52 PM EST Jean Diehl MD POINT OF CARE TEST O [facility] Performing Organization Address [facility] Co de Phone Number [facility] [address] documented in this encounter Visit Diagnoses Diagnosis Trigger finger, unspecified finger, unspecified laterality Trigger finger, unspecified finger, unspecified laterality documented [...] 1:45 PM EST 1,000 mLs 100 mL/hr lidocaine-EPINEPHrine (pf) (2% - 1:200,000) injection PRN, Starting on Tue07/04/23 at 1525, Until Tue07/04/23 at 1823, Intra-Operative (Intra-Procedure), Routine Given 07/04/2023 3:25 PM EST 2 mLs 19- Surgical Site sodium bicarbonate 8.4 % (1 meq/ml) IV solution PRN, Starting on Tue07/04/23 at 1526, Until Tue07/04/23 at 1823, Intra-Operative (Intra-Procedure), Routine Given 07/04/2023 3:26 PM EST 1 mEq 19- Surgical Site documented in this encounter Active and Recently [...] - 1:200,000) injection (CANCELED) PRN, Starting on Tue07/04/23 at 1525, Until Tue07/04/23 at 1823, Intra-Operative (Intra-Procedure), Routine 1525 (Given - Provid er: Jean Diehl MD - Comment: 10 mls mixed w/ 1 ml of 8.4% sodium bicar. Total of 2 mls given) sodium bicarbonate 8.4 % (1 meq/ml) IV solution (CANCELED) PRN, Starting on Tue07/04/23 at 1526, Until Tue07/04/23 at 1823, Intra-Operative (Intra-Procedure), Routine 1526 (Given - Provid er: Jean Diehl MD - Comment: 1 ml mixed w/ 2% lido w/ epi [id number]. Total 2 ml given) documented in this encounter Care Teams Logistics Program Manager Relationship Specialty Start Date End Date Mitchell Yap MD [address] [place] [address] PCP - General 05/19/10 07/17/23 documented as of this encounter
--- OUTSIDE RECORDS SUMMARY | 2024-04-18 13:12 | XMS_ITS | Encounter Summary ---
Author Organization [place] [address] Care Team Providers Care Exposure Machine Operator Name Role Phone Mitchell Yap MD Primary Care Provider [phone] Encounter Details Date Type Department Care Team (Latest Contact Info) Description 06/12/2023 Travel Social History Tobacco Use Types Packs/Day Years [...] 10:15 AM EST Office [place] [address] Namita Bansal MD [facility] [place] [address] documented as of this encounter Goals Goal Patient Goal Type Associated Problems Recent Progress Patient-Stated? Author Exercise 3x per week (30 min per time) Exercise No Keila Arango, CDE documented as of this encounter Visit Diagnoses Not on filedocumented in this encounter Care Teams Exposure Machine Operator Relationship Specialty Start Date End Date Mitchell Yap MD [address] [place] [address] PCP - General 05/19/10 07/17/23 documented as of this encounter
--- OUTSIDE RECORDS SUMMARY | 2024-04-18 13:12 | XMS_ITS | Encounter Summary ---
Author Organization [facility] [place] [address] Care Team Providers Care Draw Press Operator Name Role Phone Corby Yancey MD Primary Care Provider [phone] Encounter Details Date Type Department Care Team (Latest Contact Info) Description 08/22/2023 10:00 AM EST Office [place] [address] Geoffrey Soler MD [facility] [place] [address] Type 1 diabetes mellitus with hypoglycemia and without coma (Primary Dx); Osteoporosis, unspecified osteoporosis type, unspecified pathological fracture presence; Vitamin D deficiency; Hypercalcemia; Primary hyperparathyroidism Social History Tobacco Use Types Packs/Day Years Used Date Smoking Tobacco: Former Cigarettes Smokeless Tobacco: Never Comments:quit 1977 Alcohol Use Standard Drinks/Week Comments Not Currently 0 (1 standard drink = 0.6 oz pur e alcohol) Stopped Feb 17, 2018 [facility] Inpatient Questions Answer Date Recorded Does [...] Sign Reading Time Taken Comments Blood Pressure 147/74 08/22/2023 10:02 AM EST Pulse 87 08/22/2023 10:02 AM EST Temperature 36.6 ??C (97.9 ??F) 08/22/2023 1 0:02 AM EST Respiratory Rate - - Oxygen Saturation 100% 08/22/2023 10: 02 AM EST Inhaled Oxygen Concentration - - Weight 59 kg (130 lb) 08/22/2023 10:02 AM EST patient report Height 149.9 cm (4' 11) 08/22/2023 10: 02 AM EST Body Mass Index 26.26 08/22/2023 10:02 AM EST documented in this encounter Patient Instructions * Patient Instructions* Geoffrey Soler MD - 08/22/2023 10:00 AM EST The choices for insulin pump are Ilet Bionic, Omnipod 5 and Tandem T-slim. We would like to change the insulin to Lyemjev. If the insurance does not cover, we plan to lower the carb ratio and inject the insulin before meals. documented in this encounter Progress Notes * Geoffrey Soler MD - 08/22/2023 10:00 AM EST Images from the original note were not included. Endocrine Outpatient Visit Date of Visit: 08/22/2023 Reason for Visit: Ebonie Sol is a 68 y.o. female with PMH significant for osteoporosis, HTN, is in endocrine clinic for follow up of T1DM and osteoporosis. , Plan from prior office note dated 05/23/23 Well controlled controlled T1DM without complications Patient has issue with hyperglycemia right after meals and hypoglycemia after meals from CGM review. Her TIR was 80% which is pretty decent. She sometimes delayed the meal insulin which causes hyperglycemia then hypoglycemia after 2-3 hours due to BG and insulin mismatching. We recommend keeping the current setting of her pump and taking the insulin right after eating. If the hyperglycemia persists after taking the insulin correctly, we may consider switching to Lyemjev due to fast onset of action. Patient will call insurance company to figure the insulin pump they prefer. We gave options of Omnipod 5, Tandem IQ and Bionic Ilets. She will need to switch to Dexcom CGM which is compatible with those pumps. Osteoporosis Suspected mild primary hyperparathyroidism Patient is currently treated for osteoporosis with Reclast, 4th dose in Apr 2023. We confirm her compression fracture at T9 on the xray. Due to her decline in BMD, we think it's from primary hyperparathyroidism. She is going to get Sestamibi scan next year due to financial issue this year. We will recheck her labs today to see the trend. If parathyroid is the cause of BMD decline, we will refer her to surgery. If not, we will consider anabolic due to the severity of her osteoporosis. We recommend increasing the vitamin D dose as her vit D was low during the last blood work. Plan: - continue the current setting of insulin pump - patient to contact back the preferred insulin pump - Sestamibi scan in 2023 - Increase vitamin D to 4000 units daily - A1C goal: <7% - A1C, calcium, albumin, PTH, phos, vit D ([facility]) - f/u in 3 months Interval History Patient does not want to get the sestamibi scan because of the insurance. 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 She wants to wait 6 months before seeing endocrine surgeon due to current health issue of her . She still has back pain. She corrected her low BG with candies. She waited until she finished the meal and inject the insulin. She boluses twice for meals as she continues to eat more during meal. Bone fractures: T9 compression fracture Treatment to date: Reclast x 4 infusions (last 04/2023) Calcium in diet: oatmeal, 1/4 cup of yoghurt, cheese, beans, 1/4 cup of milk every day Calcium supplements: calcium carbonate 500 mg Vitamin D supplements: vit D 4000 units daily Exercise: gardening, walking the dog Previous work up for osteoporosis: high normal calcium with normal PTH, normal 24-hr urine calcium,low vitamin D, normal TSH Diabetes History: Diagnosed with DM at the age of 7 yo Diabetes provider: [facility] manjinder Current home regimen: Humalog in Medtronic pump 670 G TDD 19.7 TDB 11.3 TD bolus 8.4 TIR 77% Target 110 BG Monitoring: Medtronic sensor >4 times a day Most recent HgA1C on 07/11/23 was 7.3% Typical Diet: 3 meals and 1-2 snacks a day Breakfast- oatmeal, fresh fruit Lunch- salad Supper- chicken, potato, carrots Drink- water, regular tea Typical exercise regimen: Trouble with hypoglycemia: after exercise and after meal in the afternoon, having brain fog Hypoglycemia unawareness: no Family h/o DM: Paternal GM has DM Injection site: abdomen Recent admission with DKA: no Diabetes Complications Status: Eyes: no Kidneys: no Feet: rashes on the L toe today Sensory: no Autonomic: no Cardiac: no Prevention: last eye exam: August 2022 last microalbumin 12/21/22 - cannot calculate due to low number Lab Results Component Value Date MICROALBUR 7.6 08/02/2022 last Cr: 12/20/22 0.9 Lab Results Component Value Date CREATININE 0.81 08/02/2022 last lipid panel: 12/20/22 LDL 65 Lab Results Component Value Date CHLPL 142 08/02/2022 HDL 68 08/02/2022 CHOLHDL 2.1 08/02/2022 TRIG 65 08/02/2022 LDLCHOL 61 08/02/2022 LDLDIRECT 59 09/23/2021 regular charter bus 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 Diehl 05/28/2016 Asthma GERD (gastroesophageal reflux disease) Hypertension Median nerve injury Type 1 diabetes Current Medications: Scheduled Meds: Continuous Infusions: PRN Meds:. Allergy: Allergies Allergen Reactions Latex Penicillins Anaphylaxis Prochlorperazine Other Reaction(s): Other (See Comment) Codeine Nausea And Vomiting Mannitol Other Reaction(s): vertigo, unsteadiness Reclast [Zoledronic Spek-Lqmzqifc-Bpclv] VERTIGO Water For Injection,Sterile Other Reaction(s): vertigo, unsteadiness Zoledronic Acid Other Reaction(s): vertigo, unsteadiness Naproxen Other Reaction(s): Unknown Social history: Social History Tobacco Use Smoking status: Former Types: Cigarettes Smokeless tobacco: Never Tobacco comments: quit 1977 Vaping Use Vaping Use: Never used Substance Use Topics Alcohol use: Not Currently Comment: Stopped Feb 17, 2018 Drug use: No Family history: Family History Problem Relation Age of Onset Cancer Sister Vitals BP 147/74 (BP Location (NBP): Left arm) Pulse 87 Temp 36.6 ??C (97.9 ??F) (Temporal) Ht 149.9cm (4' 11) Wt 59 kg (130 lb) Comment: patient report SpO2 100% BMI 26.26 kg/m?? Physical Exam: Gen: NAD, talking in clear sentences. Sitting comfortably. HEENT: EOMI, neck supple, oral mucus membranes moist, no visible thyroid enlargement Heart: RRR Lungs: Equal chest expansion Abd: Soft SKIN: red rash on L toe Neuro: Moving all extremities. Grossly non-focal Right Foot: Monofilament testing: Intact sensation Dorsalis pedis pulses are present on the right side Skin Integrity: Negative for ulcer, blister, skin breakdown, erythema, warmth, callus or dry skin. Left Foot: Monofilament testing: Intact sensation Dorsalis pedis pulses are present on the left side. Skin Integrity: Negative for ulcer, blister, skin breakdown, erythema, warmth, callus or dry skin. Labs: PTH 61 Vit D 35.8 12/21/22 Urine 24 hr calcium 238 Ca 9.3 (corrected 10.4) Alb 2.6 Vit D 21.6 PTH 40 Latest Reference Range & Units 08/02/22 07:42 TSH 0.27 - 4.20 mcIU/mL 4.00 PTH 15 - 65 pg/mL 31 Previous DXA results 06/25/20222017 L-spine -3.7 (2.5% decrease) -3.5 Fem neck -2.9 Total hip -2.3 (7.8% significant decreased) -1.9 Distal 1/3 radius -2.6 (3.4% decreased) -2.3 Assessment: A 68 y.o. years old female with PMH significant for T1DM (Last A1C of 7.3%) is here for further management of T1DM Diabetes. Well controlled controlled T1DM without complications Per CGM review, time in range was 77% which is good but she still has low BG 6% of the time. Patient has high blood sugar during meals and low blood sugar after meals as she bolused the insulin at the last bite of her food. We recommend switching the insulin to Lyemjev for faster acting insulin to prevent hyperglycemia and hypoglycemia with meals. If the Lyemjev is not covered, we plan to decrease ICR and have her bolus before meals. Also we will try to do Dual Wave bolus for extended release bolus at meal time and have her inject before meals. She is also due to get a new pump. We gave options of Omnipod 5, Tandem IQ and Bionic Ilets. She will call her insurance to see which one is covered. She will contact us once she decides on her pump. Osteoporosis with compression fracture Suspected mild primary hyperparathyroidism Patient has not had Sestamibi scan as she is afraid her insurance may not cover the test cost. Her calcium level was still elevated with increased in PTH level. We plan to refer her to surgery for parathyroidectomy. She would like to wait until her gets better, probably 6 months from now. We will monitor her calcium and PTH every 6 months. We will continue the current osteoporosis treatment with calcium/vit D, and Reclast and repeat DXA this year. Plan: - continue the current setting of insulin pump - try Dual Wave bolus - pt will ask insurance if they cover for Lyeumjev - patient to contact back the preferred insulin pump - monitor calcium, PTH q 6 months - Reclast in Apr 2024 (not ordered) - DXA in May 2024 (not ordered) - A1C, urine micro, lipid, BMP ([facility]) - A1C goal: <7% - f/u in 3 months Patient is on Insulin pump: Diagnosis: Diabetes Mellitus type 1 on insulin pump Patient performs SMBG at least 4x per day Patient administers 3 or more insulin through pump per day Patient frequently adjusts meal time insulin doses Patient needs a therapeutic CGM I plan to see this pt soon and at least every 6 months following this initial prescription of the CGM to assess adherence to their CGM regimen and diabetes treatment plan. We have reviewed our plan outlined as above with the patient and patient verbalized understanding and is agreeable with this management. All questions were answered and most of the time was spent on counseling about pertinent medical conditions, medications adjustment including pros and cons of starting medication if indicated, the diagnostic and therapeutic decisions, and coordination of care. Thank you for allowing us to provide care for this patient. Case discussed with Dr. Medina. Geoffrey Soler MD PGY-5, Endocrinology Fellow Pager #[phone] * Rashawn Medina MD - 08/22/2023 10:00 AM EST I have seen the patient in person and reviewed the Endocrine Fellow's above history and I agree with the details as written. The assessment and plan were formulated in discussion with me and I agree with them as documented. Agree with plan for addressing the major issue regarding her current glycemic control being bolus insulin coverage of her meals resulting in both hyperglycemia and late hypoglycemia. The patient is entertaining switching to a new insulin pump which may be beneficial. Switching to an ultrafast acting insulin such as Lyumjev may also be beneficial. Depending on the pump 1 may also alter the bolus delivery to an extended bolus or other delivery tweaks that may be of benefit. She would benefit from reviewing these with our education team. A additionally agree with the plans for continued follow-up and treatment of her osteoporosis. Aubrey Soto. Section of Endocrinology [facility] documented in this encounter Miscellaneous Notes * Addendum Note - Rashawn Medina MD - 08/22/2023 10:00 AM ESTAddended by: RASHAWN MEDINA on: 08/22/2023 12:59 PM Modules accepted: Level of Service documented in this encounter Plan of Treatment Upcoming Encounters Date Type Department Care Team (Late st Contact Info) Description 06/05/2024 10:15 AM EST Office [place] [id number] Namita Bansal MD [facility] DR ENDOCRIN[place] [address] Scheduled Orders Name Type Priority Associated Diagnoses Orde r Schedule Basic Metabolic Panel (non-fasting) Lab Routine Type 1 diabetes mellitus with hypoglycemia and without coma Osteoporosis, unspecified osteoporosis type, unspecified pathological fracture presence Vitamin D deficiency Hypercalcemia Primary hyperparathyroidism Expected: 03/08/2024, Expires: 06/25/2024 Lipid Panel (Reflex Direct LDL) Lab Routine Type 1 diabetes mellitus with hypoglycemia and without coma Osteoporosis, unspecified osteoporosis type, unspecified pathological fracture presence Vitamin D deficiency Hypercalcemia Primary hyperparathyroidism Expected: 03/08/2024, Expires: 06/25/2024 U Albumin/Cre Ratio Lab Routine Type 1 diabetes mellitus with hypoglycemia and without coma Osteoporosis, unspecified osteoporosis type, unspecified pathological fracture presence Vitamin D deficiency Hypercalcemia Primary hyperparathyroidism Expected: 03/08/2024, Expires: 06/25/2024 Hemoglobin A1c Lab Routine Type 1 diabetes mellitus with hypoglycemia and without coma Osteoporosis, unspecified osteoporosis type, unspecified pathological fracture presence Vitamin D deficiency Hypercalcemia Primary hyperparathyroidism Expected: 03/08/2024, Expires: 06/25/2024 documented as of this encounter Goals Goal Patient Goal Type Associated Problems Recent Progress Patient-Stated? Author Exercise 3x per week (30 min per time) Exercise Keila Espinoza CDE documented as of this encounter Visit Diagnoses Diagnosis Type 1 diabetes mellitus with hypoglycemia and without coma- Primary Type I (juvenile type) diabetes mellitus with other specified manifestations, not stated as uncontrolled Osteoporosis, unspecified osteoporosis type, unspecified pathological fracture presence Vitamin D deficiency Unspecified vitamin D deficiency Hypercalcemia Primary hyperparathyroidism documented in this encounter Care Teams Draw Press Operator Relationship Specialty Start Date End Date Corby Yancey MD [address] [place] [id number] PCP - General Family Medicine 07/18/23 documented as of this encounter
--- OUTSIDE RECORDS SUMMARY | 2024-04-18 13:12 | XMS_ITS | Encounter Summary ---
Author Organization [facility] [address] Care Team Providers Care Information Delivery Analyst Name Role Phone Corby Yancey MD Primary Care Provider [phone] Encounter Details Date Type Department Care Team (Latest Contact Info) Description 08/20/2023 Travel Social History Tobacco Use Types Packs/Day Years Used Date Smoking Tobacco: Former Cigarettes Smokeless Tobacco: Never Comments:quit 1977 Alcohol Use Standard Drinks/Week Comments Not Currently 0 (1 standard drink = 0.6 oz pur e alcohol) Stopped Feb 17, 2018 [facility] Inpatient Questions Answer Date Recorded Does Anyone [...] 10:15 AM EST Office [place] [address] Namita Bansal MD [facility] [address] documented as of this encounter Goals Goal Patient Goal Type Associated Problems Recent Progress Patient-Stated? Author Exercise 3x per week (30 min per time) Exercise No Keila Arango CDE documented as of this encounter Visit Diagnoses Not on filedocumented in this encounter Care Teams Information Delivery Analyst Relationship Specialty Start Date End Date Corby Yancey MD [address] [place] [phone] PCP - General Family Medicine 07/18/23 documented as of this encounter
--- OUTSIDE RECORDS SUMMARY | 2024-04-18 13:12 | XMS_ITS | Encounter Summary ---
Author Organization [facility] [place] [address] Care Team Providers Care Dental Scheduling Coordinator Name Role Phone Corby Yancey MD Primary Care Provider [phone] Encounter Details Date Type Department Care Team (Latest Contact Info) Description 12/05/2023 Travel Social History Tobacco Use Types Packs/Day Years Used Date Smoking Tobacco: Former Cigarettes Smokeless Tobacco: Never Comments:quit 1977 Alcohol Use Standard Drinks/Week Comments Not Currently 0 (1 standard drink = 0.6 oz pur e alcohol) Stopped Feb 17, 2018 [facility] Inpatient Questions Answer Date Recorded Does Anyone [...] 10:15 AM EST Office [place] [address] Namita Bansal MD [facility] [place] [address] documented as of this encounter Goals Goal Patient Goal Type Associated Problems Recent Progress Patient-Stated? Author Exercise 3x per week (30 min per time) Exercise No Keila Arango CDE documented as of this encounter Visit Diagnoses Not on filedocumented in this encounter Care Teams Dental Scheduling Coordinator Relationship Specialty Start Date End Date Corby Yancey MD [address] [place] [id number] PCP - General Family Medicine 07/18/23 documented as of this encounter
--- OUTSIDE RECORDS SUMMARY | 2024-04-18 13:12 | XMS_ITS | Encounter Summary ---
Author Organization [facility] [place] [address] Care Team Providers Care Hearings Reporter Name Role Phone Corby Yancey MD Primary Care Provider [phone] Reason for Visit * Reason Onset Date Comments Pump/sensor 09/08/2023 Encounter Details Date Type Department Care Team (Late st Contact Info) Description 09/08/2023 Telephone [place] [phone] Namita Cordero Pump/sensor Social History Tobacco Use Types Packs/Day Years Used Date Smoking Tobacco: Former Cigarettes Smokeless Tobacco: Never Comments:quit 1977 Alcohol Use Standard Drinks/Week Comments Not Currently 0 (1 standard drink = 0.6 oz pur e alcohol) Stopped Feb 17, 2018 [facility] Inpatient Questions Answer Date Recorded Does Anyone [...] encounter Miscellaneous Notes * Telephone Encounter - Namita Cordero - 09/08/2023 2:28 PM EDT Documentation request received from [facility]. 08/22/23 office notes routed Fax number: [phone] documented in this encounter Plan of Treatment Upcoming Encounters Date Type Department Care Team (Late st Contact Info) Description 06/05/2024 10:15 AM EST Office [place] [address] Namita Bansal MD [facility] [place] [address] documented as of this encounter Goals Goal Patient Goal Type Associated Problems Recent Progress Patient-Stated? Author Exercise 3x per week (30 min per time) Exercise No Keila Arango CDE documented as of this encounter Visit Diagnoses Not on filedocumented in this encounter Care Teams Hearings Reporter Relationship Specialty Start Date End Date Corby Yancey MD [address] [place] [address] PCP - General Family Medicine 07/18/23 documented as of this encounter
--- OUTSIDE RECORDS SUMMARY | 2024-04-18 13:12 | XMS_ITS | Clinical Summary ---
Author Organization [facility] [place] [address] Care Team Providers Care Construction Mgr Name Role Phone Corby Yancey MD Primary Care Provider [phone] Allergies Active Allergy Reactions Criticality Noted Date Comments Codeine Nausea And Vomiting 06/10/2016 Latex Low 12/09/2022 Mannitol 12/09/2022 Other Reaction(s): vertigo, unsteadiness Naproxen Low 08/12/2020 Other Reaction(s): Unknown Penicillins Anaphylaxis High Prochlorperazine High 12/09/2022 Other Reaction(s): Other (See Comment) Zoledronic Fiwq-Kxgmpuit-Sbbfg 07/14/2020 VERTIGO Water For Injection,Sterile 12/09/2022 Other Reaction(s): vertigo, unsteadiness Zoledronic Acid 12/09/2022 Other Reaction(s): vertigo, unsteadiness Medications Medication Sig Dispensed Refills Start Date End Date Status lisinopril (PRINIVIL;ZESTRIL) 20 mg Tablet Take 1 tablet by mouth daily. 30 tablet 09/25/2014 Active multivitamin with minerals (THERA-M) 9-0.4 mg Tablet Take 1 tablet by mouth daily. Active Diabetic Supplies, Miscellan. Misc Form faxed to [facility] for insulin pump supplies 1 each 3 01/05/2016 Active ADVAIR DISKUS 100-50 mcg/dose Disk with Device Inhale 1 puff into the lungs daily. 11/23/2016 Active Diabetic Supplies, Miscellan. [place] PWO faxed to [facility] 100 each 12 01/17/2017 Active Diabetic Supplies, Miscellan. [place] CMN form faxed to [employer] 100 each 12 02/24/2017 Active acetaminophen (TYLENOL) 500 mg Tablet Take 1,000 mg by mouth every 6 hours as needed for Pain. Active ibuprofen (ADVIL;MOTRIN) 200 mg Tablet Take 600 mg by mouth daily as needed for Pain. Active MAGNESIUM ORAL Take by mouth daily. Active insulin needles, disposable, (BD ULTRA-FINE SHORT PEN NEEDLE) 31 gauge x 5/16 Needle 1 Box by [place].(Non-Drug; Combo Route) route 4 times daily. Box of 100 1 each 3 06/26/2019 Active zoledronic kuun-gayamoza-uxry r (zoledronic Acid) 5 mg/100 mL IV solution Inject 5 mg into the vein. Yearly Active glucagon, Human Recombinant, 1 mg Recon Soln as needed. 10/19/2018 Active pantoprazole EC (Protonix) 40 mg Tablet, Delayed Release (E.C.) TAKE ONE TABLET BY MOUTH EVERY DAY 10/10/2020 Active atorvastatin (Lipitor) 20 mg Tablet TAKE ONE TABLET BY MOUTH AT BEDTIME 02/24/2021 Active cholecalciferol (Vitamin D3) 1,000 unit Tablet Take 2,000 Units by mouth daily. Active ProAir HFA 90 mcg/actuation HFA Aerosol Inhaler INHALE 1-2 PUFFS BY MOUTH EVERY 4 HOURS NEEDED 03/22/2022 Active aspirin EC 81 mg Tablet, Delayed Release (E.C.) every other day. Acti ve dexlansoprazole (Dexilant) [address] capsule Take 30 mg by mouth daily. 08/25/2022 Active calcium carbonate/vitamin D3 (CALCIUM WITH VITAMIN D3 ORAL) Take by mouth daily. Active Lantus U-100 Insulin 100 unit/mL Solution INJECT 10 UNITS SUBCUTANEOUSLY NEEDED (IF PUMP IS NOT WORKING). WORKS FOR 24 HOURS. 10 mL 1 05/26/2023 Active Blood-Glucose Meter,Continuous ([employer] G7 Inspector Balance Truing) MiscIndications:Hy poglycemia unawareness in type 1 diabetes mellitus Inspector Balance Truing to be used with G7 sensor to monitor BG levels before and after meals. 1 each 09/01/2023 Active Contour Next Test Strips Strip TEST 8 TIMES A DAY. 700 strip 2 11/02/2023 Active insulin lispro (humaLOG) 100 unit/mL SolutionIndication s:Type 1 diabetes mellitus without complication, with emt intermediate current use of insulin pump INJECT 60 UNITS every 3 days UNDER THE SKIN CONTINUOUS VIA PUMP 54 mL 3 12/05/2023 Active Blood-Glucose Sensor (Dexcom G7 Sensor) DeviceIndications: Hypoglycemia unawareness in type 1 diabetes mellitus Apply 1 sensor every 10 days 9 each 3 12/05/2023 Active Active Problems Problem Noted Date Diagnosed Date Trigger ring finger of right hand 06/13/2023 s/p A1 jeannette release right long finger with Dr. Diehl 05/19/2021 05/19/2021 A1 jeannette release left index finger 06/16/21 Dr. 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 Diagnosed at age 7 Family History Medical History Relation Comments Cancer Sister Relation Status Comments Sister Social History Tobacco Use Types Packs/Day Years Used Date Smoking Tobacco: Former Cigarettes Smokeless Tobacco: Never Tobacco Cessation:Counseling Given: Not Answered Comments:quit 1977 Alcohol Use Standard Drinks/Week Comments Not Currently 0 (1 standard drink = 0.6 oz pur e alcohol) Stopped Feb 17, 2018 [facility] Inpatient Questions Answer Date Recorded Does [...] Orientation Straight 11/02/2020 3: 40 PM EDT Last Filed Vital Signs Vital Sign Reading Time Taken Comments Blood Pressure 121/64 12/05/2023 10:05 AM EDT Pulse 69 12/05/2023 10:05 AM EDT Temperature 36.1 ??C (97 ??F) 12/05/2023 10:05 AM EDT Respiratory Rate 16 07/04/2023 3:45 PM EST Oxygen Saturation 100% 12/05/2023 10:05 AM EDT Inhaled Oxygen Concentration - - Weight 59 kg (130 lb) 12/05/2023 10:05 AM EDT nohemy hendrickson report Height 149.9 cm (4' 11) 12/05/2023 10:05 AM EDT Body Mass Index 26.26 12/05/2023 10:05 AM EDT Plan of Treatment Upcoming Encounters Date Type Department Care Team (Late st Contact Info) Description 06/05/2024 10:15 AM EST Office [place] [address] Namita Bansal MD [facility] [place] [address] Health Maintenance Due Date Last Done Comments CT Colonography 1957 Colonoscopy 1957 Colorectal Cancer Screening 1957 FIT DNA 1957 FIT 1957 Sigmoidoscopy (10 year) with FIT yearly 1957 Sigmoidoscopy 1957 Pneumoccocal Vaccine: 65+ (1 of 2 - PCV) 1963 DM Opthalmology Exam 1967 Hepatitis C Screening 1975 Tetanus/Diphtheria/Pertussis Vaccines (1 - Tdap) 02/05/1976 Breast Cancer Share Decision Needed 1997 Breast Cancer screening 1997 Zoster vaccine (1 of 2) 2007 Advance Directive 02/05/2012 Bone Density Scan 2022 DM Creatinine yearly 08/02/2023 08/02/2022, 09/23/2021, 03/25/2021, Additional history exists DM Urine Microalbumin yearly 08/02/202311/2022, 09/23/2021, 07/14/2020, Additional history exists DM Hemoglobin A1c 6 month 08/24/20232022, 08/02/2022, 09/23/2021, Additional history exists Covid-19 Vaccine (1 - 2022-2 4 season) 2024 Influenza (Flu) vaccine (1 o f 1 - Influenza standard series) 02/26/2024 Lipid Screening Discontinued 08/02/2022, 06/27, 05/15/2019, Additional history exists Goals Goal Patient Goal Type Associated Problems Recent Progress Patient-Stated? Author Exercise 3x per week (30 min per time) Exercise No Keila Arango, CDE Procedures Procedure Name Priority Date/Time Associated Diagnosis Comments HEMOGLOBIN A1C Routine 02/21/2023 9:21 AM EDT Type 1 diabetes mellitus with hypoglycemia and without coma Osteoporosis, unspecified osteoporosis type, unspecified pathological fracture presence HC CREATININE - NON BLOOD Routine 08/02/2022 7:50 AM EST Diabetes mellitus type 1, uncomplicated LIPID PANEL (REFLEX DIRECT LDL) Routine 08/02/2022 7:42 AM EST Diabetes mellitus type 1, uncomplicated BASIC METABOLIC PANEL Routine 08/02/2022 7:42 AM EST Diabetes mellitus type 1, uncomplicated from Last 3 Months or Most Recently Relevant to Health Maintenance Results * (ABNORMAL) Hemoglobin A1c (02/21/2023 9:21 AM EDT) Hemoglobin A1c 6.5(H) 4.3 - 5.6 % [facility] Comment: Reference Range: 4.3 - 5.6% 5.7 - 6.4% - Increased Risk of Developing Diabetes Mellitus >= 6.5% - Consistent with diagnosis of Diabetes Mellitus In the absence of hyperglycemia (i.e. plasma glucose > 200 mg/dL) or classic symptoms of hyperglycemia a repeat measurement of HbA1c should be performed on a separate sample to confirm the diagnosis. Diagnosis and Classification of Diabetes Mellitus, Diabetes Care 2013; 36: Suppl. 1, J58-38 Estimated Average Glucose 139 mg/dL [facility] Comment: eAG equivalents for HbA1c percentages: HbA1c(%) ?eAG(mg/dL) 6.0 ?126 6.5 ?140 7.0 ?154 7.5 ?169 8.0 ?183 8.5 ?197 9.0 ?212 9.5 ?226 10.0 ? 240 Limitations: The eAG calculation has not been validated on women, individuals below 18 years old and above 70 years old, and individuals with hemoglobinopathies. Additional resources are available on the ADA website. Sam COPELAND, Leatha J, Blanca R, et al. ??Translating the A1C assay into estimated average glucose values. ??Diabetes Care 2008:31(8):9381-2287. Blood 02/21/2023 9:21 AM EDT 02/21/2023 9:30 AM EDT Narrative Resulting Agency Comment Spec In Lab Kira Donohue MD CHEMISTRY ORDERABLES [facility] [place] [address] * U Albumin/Cre Ratio (08/02/2022 7:50 AM EST) Albumin / Creatinin Ratio, Urine 3 0 - 29 mcg/mg Cr [facility] Comment: Reference Ranges: <30 mcg/mg: Normal 30-300 mcg/mg: Moderately increased albuminuria.* >300 mcg/mg: Severely increased albuminuria. * ACEI or ARB recommended if diabetic; suggested if BP>130/80 without diabetes ACEI or ARB strongly recommended if diabetic; recommended if BP>130/80 without diabetes Two of three specimens collected within a 3 to 6 month period should be abnormal before considering a patient to have albuminuria. Transient causes: exercise, fever, infection, CHF, marked hyperglycemia or hypertension. Persistent albuminuria indicates CKD and is an independent risk factor for ASCVD. ADA Standards of Medical Care in Diabetes-2016; KDIGO: Kidney International Supplements (2012) 2, 357? 362 Albumin, Urine 7.6 mg/L [facility] Creatinine, Urine 220 mg/dL [facility] Urine 08/02/2022 7:50 AM EST 08/02/2022 8:00 AM EST Narrative Resulting Agency Comment Spec In Lab Norris Campos MD URINE ORDERABLES [facility] [place] [address] * Lipid Panel (Reflex Direct LDL) (08/02/2022 7:42 AM EST) Cholesterol, Total 142 mg/dL [facility] Comment: Lower Risk: <200 mg/dL Average Risk: 200-239 mg/dL Higher Risk: >rm=886 mg/dL Triglyceride 65 mg/dL [facility] Comment: Average Risk/Lower Risk: <150 mg/dL Borderline High Risk: 150-199 mg/dL High Risk: 200-499 mg/dL Very High Risk: >uz=950 mg/dL HDL Cholesterol 68 mg/dL [facility] Comment: Males: ?? Higher Risk: <40 mg/dL Females: ?? Higher Risk: <50 mg/dL LDL Cholesterol 61 mg/dL [facility] Comment: Lowest Risk: <100 mg/dL Lower Risk: 100-129 mg/dL Borderline High Risk: 130-159 mg/dL High Risk: 160-189 mg/dL Very High Risk: >id=531 mg/dL Cholesterol/HDL Ratio 2.1 ratio [facility] Lipid Interpretation See Note [facility] Comment: Lipid management should be guided by a patient? s ASCVD risk, goals and preferences. ACC/AHA Guidelines recommend high intensity statin if clinical ASCVD or LDL greater than or equal to 190 mg/dL. http://3Leafurl.com/SSB-LQQ-Qiwktmqop Adults aged 40-75 with LDL 70-189 mg/dL should have their 10 year ASCVD risk estimated with the ACC/AHA ASCVD risk job cost estimator http://tools.acc.org/BDZTB-Nkpo-Csteizdjt/ Statin should be discussed if risk greater than or equal to 7.5% in non-diabetics. With diabetes, moderate intensity statin is recommended if risk less than 7.5%, high intensity if risk greater than or equal to 7.5%. Annual lipid monitoring on statins is not necessary. Evaluate secondary causes of Triglycerides greater than 500 mg/dL or LDL greater than 190 mg/dL: See table 6 of ACC/AHA Guideline. Lifestyle modification is a critical component of ASCVD risk reduction. Blood 08/02/2022 7:42 AM EST 08/02/2022 7:51 AM EST Narrative Resulting Agency Comment Spec In Lab Norris Campos MD CHEMISTRY ORDERABLE S [facility] [place] [address] * (ABNORMAL) Basic Metabolic Panel (non-fasting) (08/02/2022 7:42 AM EST) Glucose 154 65 - 199 mg/dL [facility] Comment:Diabetes: >=200 mg/d L plus symptoms Blood Urea Nitrogen 22(H) 8 - 18 mg/dL [facility] Creatinine 0.81 0.70 - 1.20 mg/dL [facility] Sodium 144 135 - 145 mmol/L [facility] Potassium 4.2 3.5 - 5.0 mmol/L [facility] Comment: Please note: ??Patients with WBC >100,000 may have falsely elevated Potassium levels. ??For accurate Potassium quantification in these patients send serum separator tube (gold top) for subsequent determinations. ??Contact the Clinical Chemistry Laboratory if there are any questions. Chloride 108(H) 98 - 107 mmol/L [facility] Carbon Dioxide 25 22 - 31 mmol/L [facility] Anion Gap 11 5 - 15 mmol/L [facility] Calcium 10.5 8.5 - 10.5 mg/dL [facility] Est Glomerular Filtration Rate 81 >=60 mL/min/1. 73 m?? [facility] Comment: This patient's estimated GFR was calculated using the 2020 CKD-EPI equation. The estimated GFR can vary from the measured GFR by up to 30% in the absence of rapidly changing kidney function. Assessment of the estimated GFR is not appropriate when creatinine concentrations are rapidly changing. For clinical situations in which a more precise estimate of GFR is necessary, consider alternative methods of GFR estimation such as a 24-hour urine creatinine clearance. Assignment of CKD stage 1-5 for patients with an eGFR near the transition point between stages may be based on clinical assessment of muscle mass and symptoms in addition to eGFR. Blood 08/02/2022 7:42 AM EST 08/02/2022 7:51 AM EST Narrative Resulting Agency Comment Spec In Lab Norris Campos MD [place] [address] from Last 3 Months or Most Recently Relevant to Health Maintenance Advance Directives * Full Code (Latest Code Status on File) Date Activated Date Inactivated Comments 10/10/2018 9:08 AM 10/10/2018 12:31 PM Question Answer Comments Does patient have capacity to make decision: Yes * Full Code Date Activated Date Inactivated Comments 09/26/2018 9:24 AM 09/26/2018 12:46 PM Question Answer Comments Does patient have capacity to make decision: Yes * Full Code Date Activated Date Inactivated Comments 06/10/2016 12:02 PM 06/10/2016 3:40 PM Question Answer Comments Does patient have capacity to make decision: Yes * Full Code Date Activated Date Inactivated Comments 06/16/2015 7:07 AM 06/16/2015 10:07 AM Question Answer Comments Does patient have capacity to make decision: Yes Care Teams Construction Mgr Relationship Specialty Start Date End Date Corby Yancey MD [address] [place] [address] PCP - General Family Medicine 07/18/23
--- OUTSIDE RECORDS SUMMARY | 2024-04-18 13:12 | XMS_ITS | Encounter Summary ---
Author Organization [facility] [place] [address] Care Team Providers Care Flue Cleaner Name Role Phone Corby Yancey MD Primary Care Provider [phone] Reason for Visit * Reason Onset Date Comments Pump/sensor 09/01/2023 Encounter Details Date Type Department Care Team (Late st Contact Info) Description 09/01/2023 Telephone [place] [phone] Namita Cordero Pump/sensor Social History Tobacco Use Types Packs/Day Years Used Date Smoking Tobacco: Former Cigarettes Smokeless Tobacco: Never Comments:quit 1977 Alcohol Use Standard Drinks/Week Comments Not Currently 0 (1 standard drink = 0.6 oz pur e alcohol) Stopped Feb 17, 2018 [facility] Inpatient Questions Answer Date Recorded Does Anyone [...] * Telephone Encounter - Namita Cordero - 09/01/2023 7:54 AM EST Copied from [facility] #[id number]. Topic: Specialty Dept CRMs - Generic Call >> Aug 31, 2023 10:30 AM Elena W wrote: Specialist: Ryder Relationship (if other than patient-full name): self Reason for Call: Patient calling, says she spoke to a gentleman by the name of Mil in the [employer] Dept. Mil advised this patient that she will need sensors for the [employer] but that these are ordered from a different company. Patient unsure which company Mil is from, but provided a phone number of [phone]. Can you please advise? documented in this encounter Plan of Treatment Upcoming Encounters Date Type Department Care Team (Late st Contact Info) Description 06/05/2024 10:15 AM EST Office [place] [address] Namita Bansal MD [facility] [place] [address] documented as of this encounter Goals Goal Patient Goal Type Associated Problems Recent Progress Patient-Stated? Author Exercise 3x per week (30 min per time) Exercise No Keila Arango CDE documented as of this encounter Visit Diagnoses Not on filedocumented in this encounter Care Teams Flue Cleaner Relationship Specialty Start Date End Date Corby Yancey MD [address] [place] [address] PCP - General Family Medicine 07/18/23 documented as of this encounter
--- OUTSIDE RECORDS SUMMARY | 2024-04-18 13:12 | XMS_ITS | Encounter Summary ---
Author Organization [facility] [place] [address] Care Team Providers Care Waiter/Waitress Buffet Name Role Phone Corby Yancey MD Primary Care Provider [phone] Reason for Visit * Reason Comments Trigger Finger 07/04/23 RIGHT RING TR IGGER REL Encounter Details Date Type Department Care Team (Late st Contact Info) Description 07/18/2023 3:00 PM EST Office [place] [address] Laith Diehl MD [facility] [address] [place] [address] Trigger ring finger of right hand Social History Tobacco Use Types Packs/Day Years Used Date Smoking Tobacco: Former Cigarettes Smokeless Tobacco: Never Comments:quit 1977 Alcohol Use Standard Drinks/Week Comments Not Currently 0 (1 standard drink = 0.6 oz pur e alcohol) Stopped Feb 17, 2018 [facility] Inpatient Questions Answer Date Recorded Does Anyone [...] Sign Reading Time Taken Comments Blood Pressure - - Pulse - - Temperature - - Respiratory Rate - - Oxygen Saturation - - Inhaled Oxygen Concentration - - Weight 57.6 kg (127 lb) 07/18/2023 2:51 PM EST Height 151.8 cm (4' 11.75) 07/18/2023 2:[address] Body Mass Index 25.01 07/18/2023 2:51 PM EST documented in this encounter Progress Notes * Laith Diehl MD - 07/18/2023 3:00 PM EST Ebonie Sol underwent A1 jeannette release of her right ring finger 2 weeks ago. She has had no particular problems since her surgery. Her incision is healing in a benign fashion. She has normal motion without triggering today. Today her sutures were removed and Steri-Strips were applied. She may advance use of her hand as tolerated. She will see me for the cyst in the future on an as-needed basis. documented in this encounter Plan of Treatment Upcoming Encounters Date Type Department Care Team (Late st Contact Info) Description 06/05/2024 10:15 AM EST Office [place] [address] Namita Bansal MD [facility] [place] [address] documented as of this encounter Goals Goal Patient Goal Type Associated Problems Recent Progress Patient-Stated? Author Exercise 3x per week (30 min per time) Exercise Keila Espinoza CDE documented as of this encounter Visit Diagnoses Diagnosis Trigger ring finger of right hand Trigger finger (acquired) documented in this encounter Care Teams Waiter/Waitress Buffet Relationship Specialty Start Date End Date Corby Yancey MD [address] [address] PCP - General Family Medicine 07/18/23 documented as of this encounter
--- OUTSIDE RECORDS SUMMARY | 2024-04-18 13:12 | XMS_ITS | Encounter Summary ---
Author Organization [facility] [place] [address] Care Team Providers Care Package Line Relief Operator Name Role Phone Corby Yancey MD Primary Care Provider [phone] Encounter Details Date Type Department Care Team (Late st Contact Info) Description 01/04/2024 Telephone [place] [phone] Natalia Cardona Social History Tobacco Use Types Packs/Day Years Used Date Smoking Tobacco: Former Cigarettes Smokeless Tobacco: Never Comments:quit 1977 Alcohol Use Standard Drinks/Week Comments Not Currently 0 (1 standard drink = 0.6 oz pur e alcohol) Stopped Feb 17, 2018 [facility] Inpatient Questions Answer Date Recorded Does Anyone [...] encounter Miscellaneous Notes * Telephone Encounter - Natalia Cardona - 01/04/2024 7:38 AM EDTSummary: Reliable Diabetes Form signed David Carlos 01/03/2024 Faxed to [phone] Confirmation fax received documented in this encounter Plan of Treatment Upcoming Encounters Date Type Department Care Team (Late st Contact Info) Description 06/05/2024 10:15 AM EST Office [place] [address] Namita Bansal MD [facility] [place] [address] documented as of this encounter Goals Goal Patient Goal Type Associated Problems Recent Progress Patient-Stated? Author Exercise 3x per week (30 min per time) Exercise No Keial Arango, CHRISTIANO documented as of this encounter Visit Diagnoses Not on filedocumented in this encounter Care Teams Package Line Relief Operator Relationship Specialty Start Date End Date Corby Yancey MD [address] [place] [address] PCP - General Family Medicine 07/18/23 documented as of this encounter
--- OUTSIDE RECORDS SUMMARY | 2024-04-18 13:12 | XMS_ITS | Encounter Summary ---
Author Organization [facility] [place] [address] Care Team Providers Care Check And Transfer Beader Name Role Phone Corby Yancey MD Primary Care Provider [phone] Reason for Visit * Reason Onset Date Comments Medication Refill 05/26/2023 Encounter Details Date Type Department Care Team (Late st Contact Info) Description 05/26/2023 Telephone [place] [phone] Geoffrey Soler MD [facility] [place] [address] Medication Refill Social History Tobacco Use Types Packs/Day Years Used Date Smoking Tobacco: Former Cigarettes Smokeless Tobacco: Never Comments:quit 1977 Alcohol Use Standard Drinks/Week Comments Not Currently 0 (1 standard drink = 0.6 oz pur e alcohol) Stopped Feb 17, 2018 [facility] Inpatient Questions Answer Date Recorded Does Anyone [...] encounter Miscellaneous Notes * Telephone Encounter - Krish Browne - 05/26/2023 10:30 AM EST NAME OF MEDICATION AND DOSE: insulin lispro (humaLOG) 100 unit/mL Solution [[id number]] - dose and frequency as stated in medication list. PHARMACY NAME: [facility] PHARMACY PHONE: Would patient like script sent directly to pharmacy? (Yes or no) yes Would patient like to shrimp picker paper script here at our office (Please put yes or no) no Would patient like paper script mailed to home address (Please put yes or no) no Caller/Patient aware of 1-2 business day process. documented in this encounter Plan of Treatment Upcoming Encounters Date Type Department Care Team (Late st Contact Info) Description 06/05/2024 10:15 AM EST Office Visit [place] [address] Namita Bansal MD [facility] [place] [address] documented as of this encounter Goals Goal Patient Goal Type Associated Problems Recent Progress Patient-Stated? Author Exercise 3x per week (30 min per time) Exercise No Keila Arango CDE documented as of this encounter Visit Diagnoses Not on filedocumented in this encounter Care Teams Check And Transfer Beader Relationship Specialty Start Date End Date Corby Yancey MD [address] [place] [address] PCP - General Family Medicine 07/18/23 documented as of this encounter
--- OUTSIDE RECORDS SUMMARY | 2024-04-18 13:12 | XMS_ITS | Encounter Summary ---
Author Organization Count Includes [facility] [address] Care Team Providers Care Specialty Plant Supervisor Name Role Phone Corby Yancey MD Primary Care Provider [phone] Encounter Details Date Type Department Care Team (Latest Contact Info) Description 08/22/2023 Travel Social History Tobacco Use Types Packs/Day Years Used Date Smoking Tobacco: Former Cigarettes Smokeless Tobacco: Never Comments:quit 1977 Alcohol Use Standard Drinks/Week Comments Not Currently 0 (1 standard drink = 0.6 oz pur e alcohol) Stopped Feb 17, 2018 [facility] Inpatient Questions Answer Date Recorded [...] 10:15 AM EST Office [place] [address] Namita Bansal MD [facility] [place] [address] documented as of this encounter Goals Goal Patient Goal Type Associated Problems Recent Progress Patient-Stated? Author Exercise 3x per week (30 min per time) Exercise No Keila Arango CDE documented as of this encounter Visit Diagnoses Not on filedocumented in this encounter Care Teams Specialty Plant Supervisor Relationship Specialty Start Date End Date Corby Yancey MD [address] [place] [address] PCP - General Family Medicine 07/18/23 documented as of this encounter
--- OUTSIDE RECORDS SUMMARY | 2024-04-18 13:12 | XMS_ITS | Encounter Summary ---
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 Author Exercise 3x per week (30 min per time) Exercise No Keila Arango, CDE documented as of this encounter Visit Diagnoses Diagnosis Type 1 diabetes mellitus without complication, with alf current use of insulin pump documented in this encounter Care Teams Tractor Mechanic Helper Relationship Specialty Start Date End Date Mitchell Yap MD [address] [place] [address] PCP - General 05/19/10 07/17/23 documented as of this encounter
--- OUTSIDE RECORDS SUMMARY | 2024-04-18 13:12 | XMS_ITS | Encounter Summary ---
[place] [address] Care Team Providers Care Senior Net Developer Architect Name Role Phone Mitchell Yap MD Primary Care Provider [phone] Reason for Visit * Reason Onset Date Comments Prior Authorization 06/08/2023 Encounter Details Date Type Department Care Team (Late st Contact Info) Description 06/08/2023 Telephone [place] [phone] Namita Cordero Prior Authorization Social History Tobacco Use Types Packs/Day Years [...] * Telephone Encounter - Namita Cordero - 06/10/2023 9:12 AM EST PA Outcome: PA Approval Medication Prior Authorization Approval Approved: Contour Next Test Strips Start Date: 06/09/23 End Date: 06/26/24 Case/Reference #: [id number] Approval Letter will be scanned into media once received. * Telephone Encounter - Namita Cordero - 06/08/2023 1:22 PM EST Previous Medications Tried Medication: OneTouch Medication: [employer] Test Strips Patient is on insulin pump * Telephone Encounter - Namita Cordero - 06/08/2023 1:22 PM EST Medication Prior Authorization Andres Medication name/dose/directions: Contour Next Test Strips - Test 8x daily Rationale for request: Type I DM (E10.65) Health plan: [employer] ([facility]) Erwin: [id number] Authorizing telephone services sales representative name: Nedra Sent to health plan on: 06/08/23 documented in this encounter Plan of Treatment Upcoming Encounters Date Type Department Care Team (Late st Contact Info) Description 06/05/2024 10:15 AM EST Office [place] [address] Namita Bansal MD [facility] [place] [address] documented as of this encounter Goals Goal Patient Goal Type Associated Problems Recent Progress Patient-Stated? Author Exercise 3x per week (30 min per time) Exercise No Keila Arango CDE documented as of this encounter Visit Diagnoses Not on filedocumented in this encounter Care Teams Senior Net Developer Architect Relationship Specialty Start Date End Date Mitchell Yap MD [address] [place] [address] PCP - General 05/19/10 07/17/23 documented as of this encounter
--- OUTSIDE RECORDS SUMMARY | 2024-04-18 13:12 | XMS_ITS | Encounter Summary ---
Author Organization [facility] [place] [address] Care Team Providers Care General Duty Nurse Name Role Phone Mitchell Yap MD Primary Care Provider [phone] Encounter Details Date Type Department Care Team (Late st Contact Info) Description 04/21/2023 Telephone [place] [phone] Dominga Hu Social History Tobacco Use Types Packs/Day Years [...] * Telephone Encounter - Dominga Hu - 04/21/2023 2:11 PM EDT Patient is out of Pump Supplies. Patient is stating she has switched companies from [employer] to [employer]. Patient called [employer] and got a fax of number agent has faxed, A1c, last note and both [employer] and [employer] for supplies. * Telephone Encounter - Dominga Hu - 04/21/2023 1:44 PM EDT Please put patient throught to Dominga documented in this encounter Plan of Treatment Upcoming Encounters Date Type Department Care Team (Late st Contact Info) Description 06/05/2024 10:15 AM EST Office Visit [place] [address] Namita Bansal MD [facility] [place] [address] documented as of this encounter Goals Goal Patient Goal Type Associated Problems Recent Progress Patient-Stated? Author Exercise 3x per week (30 min per time) Exercise No Keila Arango CDE documented as of this encounter Visit Diagnoses Not on filedocumented in this encounter Care Teams General Duty Nurse Relationship Specialty Start Date End Date Mitchell Yap MD [address] [place] [address] PCP - General 05/19/10 07/17/23 documented as of this encounter
--- OUTSIDE RECORDS SUMMARY | 2024-04-18 13:12 | XMS_ITS | Encounter Summary ---
Author Organization [facility] [place] [address] Care Team Providers Care Carpet Layer Name Role Phone Corby Yancey MD Primary Care Provider [phone] Encounter Details Date Type Department Care Team (Late st Contact Info) Description 09/01/2023 [place] [phone] Татьяна Grider, RN Hypoglycemia unawareness in type 1 diabetes mellitus Social History Tobacco Use Types Packs/Day Years Used Date Smoking Tobacco: Former Cigarettes Smokeless Tobacco: Never Comments:quit 1977 Alcohol Use Standard Drinks/Week Comments Not Currently 0 (1 standard drink = 0.6 oz pur e alcohol) Stopped Feb 17, 2018 [facility] Inpatient Questions Answer Date Recorded Does [...] encounter Miscellaneous Notes * Telephone Encounter - Татьяна Grider RN - 09/01/2023 11:14 AM EST Called and spoke with patient in regards to new Tandem pump and needing to start a CGM. Patient states she did call in regards to that and would like to start with the Dexcom G7. Patient states she has been without a Guardian sensor for a month now because [employer] stated theycould not ship her supplies due to non-payment but patient states payments are current. Patient was told to go through [employer] but [facility] will not send her products until she gets the date and cost from when she purchased her pump and she does not have that and [employer] cannot provider her withthe information. She sent the information from her insurance company but [facility] stated it was not enough information so she is not using a CGM at this time. Author stated that we would send a prescription for the Dexcom G7 to her local pharmacy for a 90 day supply. If there was an issue we would send to a different pharmacy or DME company depending whereher insurance advised us to send the script. Author will let patient know where script was sent if different than [facility] in [place]. Once patient receives Dexcom she is to call to schedule 60 minute appointment with author for CGM teaching. documented in this encounter Plan of Treatment Upcoming Encounters Date Type Department Care Team (Late st Contact Info) Description 06/05/2024 10:15 AM EST Office [place] [address] Namita Bansal MD [facility] [place] [address] documented as of this encounter Goals Goal Patient Goal Type Associated Problems Recent Progress Patient-Stated? Author Exercise 3x per week (30 min per time) Exercise No Keila Arango CDE documented as of this encounter Visit Diagnoses Diagnosis Hypoglycemia unawareness in type 1 diabetes mellitus Type I (juvenile type) diabetes mellitus with other specified manifestations, not stated as uncontrolled documented in this encounter Care Teams Carpet Layer Relationship Specialty Start Date End Date Corby Yancey MD [address] [place] [address] PCP - General Family Medicine 07/18/23 documented as of this encounter
--- OUTSIDE RECORDS SUMMARY | 2024-04-18 13:12 | XMS_ITS | Encounter Summary ---
Author Organization [place] [place] [address] Care Team Providers Care Mac Operator Name Role Phone Corby Yancey MD Primary Care Provider [phone] Encounter Details Date Type Department Care Team (Late st Contact Info) Description 10/13/2023 Telephone [place] [phone] Geoffrey Soler MD [facility] [place] [address] Social History Tobacco Use Types Packs/Day Years Used Date Smoking Tobacco: Former Cigarettes Smokeless Tobacco: Never Comments:quit 1977 Alcohol Use Standard Drinks/Week Comments Not Currently 0 (1 standard drink = 0.6 oz pur e alcohol) Stopped Feb 17, 2018 [facility] Inpatient Questions Answer Date Recorded Does [...] encounter Miscellaneous Notes * Telephone Encounter - Geoffrey Soler MD - 10/13/2023 2:01 PM EDT Return call to the pt. She is getting Tandem T-slim pump training tmr. She has question about the goal blood sugar. I toldher the goal is 110. documented in this encounter Plan of Treatment Upcoming Encounters Date Type Department Care Team (Late st Contact Info) Description 06/05/2024 10:15 AM EST Office [place] [address] Namita Bansal MD [facility] [place] [address] documented as of this encounter Goals Goal Patient Goal Type Associated Problems Recent Progress Patient-Stated? Author Exercise 3x per week (30 min per time) Exercise No Keila Arango, CHRISTIANO documented as of this encounter Visit Diagnoses Not on filedocumented in this encounter Care Teams Mac Operator Relationship Specialty Start Date End Date Corby Yancey MD [address] [place] [address] PCP - General Family Medicine 07/18/23 documented as of this encounter
--- OUTSIDE RECORDS SUMMARY | 2024-04-18 13:12 | XMS_ITS | Encounter Summary ---
Author Organization [facility] [place] [address] Care Team Providers Care Cell Inspector Name Role Phone Corby Yancey MD Primary Care Provider [phone] Reason for Visit * Reason Onset Date Comments Pump/sensor 08/09/2023 Encounter Details Date Type Department Care Team (Late st Contact Info) Description 08/09/2023 [place] [phone] Namita Cordero Pump/sensor Social History Tobacco Use Types Packs/Day Years Used Date Smoking Tobacco: Former Cigarettes Smokeless Tobacco: Never Comments:quit 1977 Alcohol Use Standard Drinks/Week Comments Not Currently 0 (1 standard drink = 0.6 oz pur e alcohol) Stopped Feb 17, 2018 [facility] Inpatient Questions Answer Date Recorded [...] * Telephone Encounter - Namita Cordero - 08/24/2023 10:39 AM EST 08/22/23 office notes routed Fax number: [phone] * Telephone Encounter - Namita Cordero - 08/09/2023 8:10 AM EST Received office note from [employer] Patient needs to be seen every 3 months Awaiting to send notes from upcoming appointment documented in this encounter Plan of Treatment Upcoming Encounters Date Type Department Care Team (Late st Contact Info) Description 06/05/2024 10:15 AM EST Office [place] [address] Namita Bansal MD [facility] [place] [address] documented as of this encounter Goals Goal Patient Goal Type Associated Problems Recent Progress Patient-Stated? Author Exercise 3x per week (30 min per time) Exercise No Keila Arango, CHRISTIANO documented as of this encounter Visit Diagnoses Not on filedocumented in this encounter Care Teams Cell Inspector Relationship Specialty Start Date End Date Corby Yancey MD [address] [place] [address] PCP - General Family Medicine 07/18/23 documented as of this encounter
--- OUTSIDE RECORDS SUMMARY | 2024-04-18 13:12 | XMS_ITS | Encounter Summary ---
Author Organization [facility] [place] [address] Care Team Providers Care Polo Coach Name Role Phone Corby Yancey MD Primary Care Provider [phone] Reason for Visit * Reason Onset Date Comments Pump/sensor 12/30/2023 Encounter Details Date Type Department Care Team (Late st Contact Info) Description 12/30/2023 Telephone [place] [phone] Namita Cordero Pump/sensor Social History Tobacco Use Types Packs/Day Years Used Date Smoking Tobacco: Former Cigarettes Smokeless Tobacco: Never Comments:quit 1977 Alcohol Use Standard Drinks/Week Comments Not Currently 0 (1 standard drink = 0.6 oz pur e alcohol) Stopped Feb 17, 2018 [facility] Inpatient Questions Answer Date Recorded Does Anyone [...] * Telephone Encounter - Namita Cordero - 01/04/2024 7:25 AM EDT 12/05/23 office note routed [phone] * Telephone Encounter - Namita Cordero - 01/04/2024 7:24 AM EDT Copied from CRM #[id number]. Topic: Specialty Dept CRMs - Form Status >> Jan 03, 2024 9:26 AM Alf Rivera wrote: Form Status Request Specialist Ryder Relationship (if other than patient-full name): Chloe - [facility] Type of Form/Paperwork: CMN How Was Form/Paperwork Given to Office: Faxed Date Form/Paperwork was Sent to Office: 12/27 Patient Informed, completion of this request can take 5-7 business days. * Telephone Encounter - Namita Cordero - 01/02/2024 10:38 AM EDT CMN from [facility]. Filled out. Dr. Soler will sign. Secretaries will fax. * Telephone Encounter - Namita Cordero - 12/30/2023 8:10 AM EDT Received CMN from [facility] Will complete as soon as possible documented in this encounter Plan of Treatment Upcoming Encounters Date Type Department Care Team (Late st Contact Info) Description 06/05/2024 10:15 AM EST Office [place] [address] Namita Bansal MD [facility] [place] [address] documented as of this encounter Goals Goal Patient Goal Type Associated Problems Recent Progress Patient-Stated? Author Exercise 3x per week (30 min per time) Exercise No Keila Arango, VELMAE documented as of this encounter Visit Diagnoses Not on filedocumented in this encounter Care Teams Polo Coach Relationship Specialty Start Date End Date Corby Yancey MD [address] [place] [address] PCP - General Family Medicine 07/18/23 documented as of this encounter
--- OUTSIDE RECORDS SUMMARY | 2024-04-18 13:12 | XMS_ITS | Encounter Summary ---
[place] [address] Care Team Providers Care Bottle Washer Name Role Phone Corby Yancey MD Primary Care Provider [phone] Encounter Details Date Type Department Care Team (Late st Contact Info) Description 10/13/2023 Telephone [place] [phone] Genna Echols RN Social History Tobacco Use Types Packs/Day Years Used Date Smoking Tobacco: Former Cigarettes Smokeless Tobacco: Never Comments:quit 1977 Alcohol Use Standard Drinks/Week Comments Not Currently 0 (1 standard drink = 0.6 oz pur e alcohol) Stopped Feb 17, 2018 [facility] Inpatient Questions Answer Date Recorded Does [...] encounter Miscellaneous Notes * Telephone Encounter - Genna Echols RN - 10/13/2023 1:45 PM EDT Copied from CRM #[id number]. Topic: Specialty Dept CRMs - Generic Call >> Oct 13, 2023 1:24 PM Wong Poole wrote: Specialist: Geoffrey Soler MD Relationship (if other than patient-full name): Patient Reason for Call: Patient is going in to [facility] in [place] for insulin pump training. Pump she's currently using has 110 to 140 reading however the new pump just has one number. Please call to adviseat [phone]. documented in this encounter Plan of Treatment Upcoming Encounters Date Type Department Care Team (Late st Contact Info) Description 06/05/2024 10:15 AM EST Office [place] [address] Namita Bansal MD [facility] DR ENDOCRINOLOGY [place] [address] documented as of this encounter Goals Goal Patient Goal Type Associated Problems Recent Progress Patient-Stated? Author Exercise 3x per week (30 min per time) Exercise No Keila Arango CDE documented as of this encounter Visit Diagnoses Not on filedocumented in this encounter Care Teams Bottle Washer Relationship Specialty Start Date End Date Corby Yancey MD [address] [place] [address] PCP - General Family Medicine 07/18/23 documented as of this encounter
--- OUTSIDE RECORDS SUMMARY | 2024-04-18 13:12 | XMS_ITS | Encounter Summary ---
Author Organization [place] [address] Care Team Providers Care Paring Machine Operator Name Role Phone Mitchell Yap MD Primary Care Provider [phone] Encounter Details Date Type Department Care Team (Latest Contact Info) Description 05/23/2023 10:30 AM EST Office Visit [place] [address] Geoffrey Soler MD [facility] [place] [address] Type 1 diabetes mellitus with hypoglycemia and without coma (Primary Dx); Osteoporosis, unspecified osteoporosis type, unspecified pathological fracture presence; Vitamin D deficiency; Primary hyperparathyroidism Social History Tobacco Use Types [...] Sign Reading Time Taken Comments Blood Pressure 111/59 05/23/2023 10:27 AM EST Pulse 73 05/23/2023 10:27 AM EST Temperature 36.3 ??C (97.4 ??F) 05/23/2023 10:[address] Respiratory Rate - - Oxygen Saturation 100% 05/23/2023 10:27 AM EST Inhaled Oxygen Concentration - - Weight 57.6 kg (127 lb) 05/23/2023 10:27 AM EST Height 151.8 cm (4' 11.75) 05/23/2023 10:27 AM EST Body Mass Index 25.01 05/23/2023 10:27 AM EST documented in this encounter Patient Instructions * Patient Instructions* Geoffrey Soler MD - 05/23/2023 10:30 AM EST Please take vitamin D 4000 units daily. Please give yourself insulin for meals at the last bite. Don't wait. If your blood sugar is still high after this, we can increase the rate in the morning. Please do temporary basal rate at 50% when you work out. documented in this encounter Progress Notes * Geoffrey Soler MD - 05/23/2023 10:30 AM EST Images from the original note were not included. Endocrine Outpatient Visit Date of Visit: 05/23/2023 Reason for Visit: Ebonie Sol is a 68 y.o. female with PMH significant for osteoporosis, HTN, is in endocrine clinic for follow up of T1DM and osteoporosis. , Plan from prior office note dated 02/21/23 Well controlled controlled T1DM without complications Patient has good control of her BG, though she still has hypoglycemia. Patient has been more activewhich causes hypoglycemia in the afternoon. Sometimes she did not finish the meal that she gave theinsulin bolus for. We are not changing the setting today but recommend using the temp basal rate of50% while she is working out. Patient is planning to get the new pump so we recommend Omnipod 5 or Tandem which can be used with Dexcom sensor for closed loop system. She will look into the detail and let me know. Patient is up to date on the screening. We plan to repeat A1C in 3 months. Osteoporosis Suspected mild primary hyperparathyroidism Patient is currently treated for osteoporosis with Reclast. She has history of compression fracturewhich we don't have the record so we will repeat the xray today. Patient is due for 4th dose of Reclast infusion which she will arrange the infusion outside. Her DXA has been declined since 2017 after starting on Reclast. We did some work up for secondary osteoporosis which showed high normal calcium with PTH of 40 and normal 24-hr urine calcium. Her vitamin D is now low comparing to previous onein July. Due to normal 24-hr urine calcium without good calcium intake, high normal calcium level without suppressed PTH, we think that she likely has mild primary hyperparathyroidism which causes bone loss despite being on a treatment. We discussed about parathyroid imaging and surgery. We plan to get the imaging only if patient wants to go for surgery. She will get back to us about her decision. We plan to increase her vitamin D dose once patient gets back to us on her current dose of vitamin D. Plan: - continue the current setting of insulin pump - give supply of Lantus 10 units as needed when pump is malfunction - patient to contact back the preferred insulin pump and vitamin D dose - plan to increase vitamin D dose once we know how much patient is taking at home - Xray T-L spine today - pt to arrange 4th dose of Reclast infusion - pt to contact us about decision for parathyroid scan and surgery - A1C goal: <7% - repeat A1C in 3 months - f/u in 3 months Interval History She had her 4th Reclast infusion in Apr 2023. She had difficulty obtaining the insulin supply but now she is settled with Richie. She has not used the temp basal mode. She has low BG after meals. She boluses a while after meals sometimes. When her BG is low, she eats candies x3 and recheck BG in 15 mins with fingerstick. She felt disoriented when her BG>200. Patient will schedule her sestamibi scan in Jun. Bone fractures: T9 compression fracture Treatment to date: Reclast x 4 infusions (last 04/2023) Calcium in diet: oatmeal, 1/4 cup of yoghurt, cheese, beans, 1/4 cup of milk every day Calcium supplements: calcium carbonate 500 mg Vitamin D supplements: vit D 2000 units daily Exercise: gardening, walking the dog Previous work up for osteoporosis: high normal calcium with normal PTH, normal 24-hr urine calcium,low vitamin D, normal TSH Diabetes History: Diagnosed with DM at the age of 7 yo Diabetes [place] [facility] [place] Current home regimen: Humalog in Medtronic pump 670 G Basal [id number] 0.3 6304-2033 0.2 6804-2413 0.625 7703-2218 0.5 0000-22:30 ICR 1:15 1826-1920 ICR 1:16 Sensitivity factor 60 Active insulin time 4 hours TDD 18.6 TDB 10.4 TD bolus 8.2 TIR 80% Target 110 BG Monitoring: Medtronic sensor >4 times a day Most recent HgA1C on 02/21/23 was 6.5% Typical Diet: 3 meals and 1-2 snacks [...] LDLCHOL 61 08/02/2022 LDLDIRECT 59 09/23/2021 regular yacht rigger: no special shoes: no flu shot : yes pneumovax: yes ACEi: lisinopril ASA: yes Statin: atorvastatin 20 mg PMH Past Medical History: Diagnosis Date A1 jeannette release left index finger 06/16/21 Dr. Diehl 05/28/2016 Asthma GERD (gastroesophageal reflux disease) Hypertension Median nerve injury Type 1 diabetes Current Medications: Scheduled Meds: Continuous Infusions: PRN Meds:. Allergy: Allergies Allergen Reactions Penicillins Anaphylaxis Codeine Nausea And Vomiting Prochlorperazine Reclast [Zoledronic Ltza-Zgihepea-Bwlio] VERTIGO Naproxen Social history: Social History Tobacco Use Smoking status: Former Types: Cigarettes Smokeless tobacco: Never Tobacco comments: quit 1977 Vaping Use Vaping Use: Never used Substance Use Topics Alcohol use: Not Currently Comment: Stopped Feb 17, 2018 Drug use: No Family history: Family History Problem Relation Age of Onset Cancer Sister Vitals BP 111/59 Pulse 73 Temp 36.3 ??C (97.4 ??F) Ht 151.8 cm (4' 11.75) Wt 57.6 kg (127 lb) SpO2 100% BMI 25.01 kg/m?? Physical Exam: Gen: NAD, talking in [...] erythema, warmth, callus or dry skin. Labs: 12/21/22 Urine 24 hr calcium 238 Ca 9.3 (corrected 10.4) Alb 2.6 Vit D 21.6 PTH 40 Latest Reference Range & Units 08/02/22 07:42 TSH 0.27 - 4.20 mcIU/mL 4.00 PTH 15 - 65 pg/mL 31 XR T-L spine 02/21/23 IMPRESSION 1. 50% vertebral body height loss associated with compression fracture of T9. 2. Minimal facet arthropathy of the lower lumbar spine. Previous DXA results 06/25/20222017 L-spine -3.7 (2.5% decrease) -3.5 Fem neck -2.9 Total hip -2.3 (7.8% significant decreased) -1.9 Distal 1/3 radius -2.6 (3.4% decreased) -2.3 Assessment: A 68 y.o. years old female with PMH significant for T1DM (Last A1C of 6.5%) is here for further management of T1DM Diabetes. Well controlled controlled T1DM without complications Patient [...] D ([facility]) - f/u in 3 months Patient is [...] for this patient. Case discussed with Dr. Peguero. Geoffrey Soler MD PGY-5, Endocrinology Fellow Pager #[phone] * Torsten Peguero MD - 05/23/2023 10:30 AM EST I saw this patient with Dr Soler . I reviewed the rodriguez portions of the history and physical exam, and reviewed pertinent lab data. I answered all patient questions. I was involved in all medical decision making and agree with this plan. Ms Sol has superb diabetes control. Her osteoporosisis a concern and if the workup of secondary causes is negative I would favor switching to an anabolic. documented in this encounter Plan of Treatment Upcoming Encounters Date Type Department Care Team (Late st Contact Info) Description 06/05/2024 10:15 AM EST Office Visit [place] [address] Namita Bansal MD [facility] [place] [address] documented as of this encounter Goals Goal [...] Vitamin D deficiency Unspecified vitamin D deficiency Primary hyperparathyroidism documented in this encounter Care Teams Paring Machine Operator Relationship Specialty Start Date End Date Mitchell Yap MD [address] [place] [address] PCP - General 05/19/10 07/17/23 documented as of this encounter
--- OUTSIDE RECORDS SUMMARY | 2024-04-18 13:12 | XMS_ITS | Encounter Summary ---
Author Organization [facility] [place] [address] Care Team Providers Care Shipping Support Clerk Name Role Phone Mitchell Yap MD Primary Care Provider [phone] Encounter Details Date Type Department Care Team (Latest Contact Info) Description 05/22/2023 Travel Social History Tobacco Use Types Packs/Day [...] 10:15 AM EST Office [place] [address] Namita Bansal MD [facility] [place] [address] documented as of this encounter Goals Goal Patient Goal Type Associated Problems Recent Progress Patient-Stated? Author Exercise 3x per week (30 min per time) Exercise No Keila Arango, CDE documented as of this encounter Visit Diagnoses Not on filedocumented in this encounter Care Teams Shipping Support Clerk Relationship Specialty Start Date End Date Mitchell Yap MD [address] [place] [id number] PCP - General 05/19/10 07/17/23 documented as of this encounter
--- OUTSIDE RECORDS SUMMARY | 2024-04-18 13:12 | XMS_ITS | Encounter Summary ---
Author Organization [facility] [place] [address] Care Team Providers Care Reinsurance Claims Analyst Name Role Phone Corby Yancey MD Primary Care Provider Reason for Visit * Reason Onset Date Comments Pre Procedure Call 06/13/2023 Encounter Details Date Type Department Care Team (Late st Contact Info) Description 06/13/2023 Telephone [place] [phone] Laith Diehl MD [facility] [place] [address] Pre Procedure Call (/) Social History Tobacco Use Types Packs/Day Years [...] encounter Miscellaneous Notes * Telephone Encounter - Chanda Georges - 06/13/2023 3:41 PM EST I called and left a message for patient to call [phone] directly and schedule surgery with Dr. Diehl. documented in this encounter Plan of Treatment Upcoming Encounters Date Type Department Care Team (Late st Contact Info) Description 06/05/2024 10:15 AM EST Office [place] [address] Namita Bansal MD [facility] [place] [address] documented as of this encounter Goals Goal Patient Goal Type Associated Problems Recent Progress Patient-Stated? Author Exercise 3x per week (30 min per time) Exercise No Keila Arango, CHRISTIANO documented as of this encounter Visit Diagnoses Not on filedocumented in this encounter Care Teams Reinsurance Claims Analyst Relationship Specialty Start Date End Date Corby Yancey MD [address] [place] [address] PCP - General Family Medicine 07/18/23 documented as of this encounter
--- OUTSIDE RECORDS SUMMARY | 2024-04-18 13:12 | XMS_ITS | Encounter Summary ---
Author Organization [facility] [place] [address] Care Team Providers Care Youth Associate Name Role Phone Mitchell Yap MD Primary Care Provider [phone] Reason for Visit * Reason Comments Medication Refill Encounter Details Date Type Department Care Team (Late st Contact Info) Description 05/26/2023 [place] [address] Geoffrey Soler MD [facility] [place] [address] Type 1 diabetes mellitus without complication, with care home current use of insulin pump Social History [...] 10:15 AM EST Office [place] [address] Namita Bansal MD [facility] [place] [address] documented as of this encounter Goals Goal Patient Goal Type Associated Problems Recent Progress Patient-Stated? Author Exercise 3x per week (30 min per time) Exercise No Keila Arango, CHRISTIANO documented as of this encounter Visit Diagnoses Diagnosis Type 1 diabetes mellitus without complication, with care home current use of insulin pump documented in this encounter Care Teams Youth Associate Relationship Specialty Start Date End Date Mitchell Yap MD [address] [place] [address] PCP - General 05/19/10 07/17/23 documented as of this encounter
--- OUTSIDE RECORDS SUMMARY | 2024-04-18 13:12 | XMS_ITS | Encounter Summary ---
Author Organization [place] [address] Care Team Providers Care Border Police Name Role Phone Mitchell Yap MD Primary Care Provider [phone] Encounter Details Date Type Department Care Team (Latest Contact Info) Description 07/11/2023 Travel Social History Tobacco Use Types Packs/Day Years Used Date Smoking Tobacco: Former Cigarettes Smokeless Tobacco: Never Comments:quit 1977 Alcohol Use Standard Drinks/Week Comments Not Currently 0 (1 standard drink = 0.6 oz pur e alcohol) Stopped Feb 17, 2018 [facility] Inpatient Questions Answer Date Recorded Does [...] 10:15 AM EST Office [place] [address] Namita Bansal MD [facility] [place] [address] documented as of this encounter Goals Goal Patient Goal Type Associated Problems Recent Progress Patient-Stated? Author Exercise 3x per week (30 min per time) Exercise No Keila Arango, CHRISTIANO documented as of this encounter Visit Diagnoses Not on filedocumented in this encounter Care Teams Border Police Relationship Specialty Start Date End Date Mitchell Yap MD [address] [place] [id number] PCP - General 05/19/10 07/17/23 documented as of this encounter
--- OUTSIDE RECORDS SUMMARY | 2024-04-18 13:12 | XMS_ITS | Encounter Summary ---
Author Organization [facility] [place] [address] Care Team Providers Care General Manager Road Production Name Role Phone Corby Yancey MD Primary Care Provider [phone] Encounter Details Date Type Department Care Team (Latest Contact Info) Description 07/18/2023 Travel Social History Tobacco Use Types Packs/Day Years Used Date Smoking Tobacco: Former Cigarettes Smokeless Tobacco: Never Comments:quit 1977 Alcohol Use Standard Drinks/Week Comments Not Currently 0 (1 standard drink = 0.6 oz pur e alcohol) Stopped Feb 17, 2018 [facility] Inpatient Questions Answer Date Recorded [...] 10:15 AM EST Office [place] [address] Namita Bansal MD [facility] DR ENDOCRINOLOG[place] [address] documented as of this encounter Goals Goal Patient Goal Type Associated Problems Recent Progress Patient-Stated? Author Exercise 3x per week (30 min per time) Exercise No Keila Arango CDE documented as of this encounter Visit Diagnoses Not on filedocumented in this encounter Care Teams General Manager Road Production Relationship Specialty Start Date End Date Corby Yancey MD [address] [place] [address] PCP - General Family Medicine 07/18/23 documented as of this encounter
--- OUTSIDE RECORDS SUMMARY | 2024-04-18 13:12 | XMS_ITS | Encounter Summary ---
[place] [address] Care Team Providers Care Food Safety Technician Name Role Phone Mitchell Yap MD Primary Care Provider [phone] Reason for Visit * Auth/Cert (Routine) Specialty Diagnoses / Procedures Referred By Malka t Referred To Contact Diagnoses trigger finger Procedures PRO INCISE FINGER TENDON SHEATH TENDON SHEATH INCISION (TRIGGER FINGER) (WRVU 3.11) Laith Diehl MD [facility] [place] [address] [facility] Referral ID Status Reason Start Date Expiration Date Visits Re quested Visits Authorized [id number] 1 1 Encounter Details Date Type Department Care Team (Late st Contact Info) Description 07/04/2023 2:55 PM EST Anesthesia Event [place] [id number] Sergey Andrew MD [facility] [place] [address] Heather Pratt MD [facility] [place] [address] Anesthesia Record Procedure Summary Procedure Name Responsible Anesthesiologist Anesthesia Start Time Anesthesia Stop Time TENDON SHEATH INCISION (TRIGGER FINGER) (WRVU 3.11) (Right: Finger) Lorrie, Sergey Rodriges MD 07/04/23 1455 07/04/23 1524 Events Date Time Event Comment 07/04/2023 1353 1455 AN Verify 1455 Start 1455 An Start Data 1500 Anesthesia Ready 1516 An Tourn Deflated 1524 an stop data 1524 Recovery or ICU Handoff Deya ent care was transferred to the destination unit staff after review of the patient's medical history, current anesthetic/surgical status and plan, according to the Provider Handoff Checklist. 1524 Stop Meds Name Total Midazolam 2 mg fentaNYL 50 mcg Propofol INF 6.98 mg clindamycin 600 mg dextrose 50 % 15 mL ondansetron 4 mg ketorolac 15 mg lactated ringers infusion 0 mL * Agents Name O2 Air N2O Sevoflurane (et) O2 Auxiliary Flowmeter 1 * Blood No blood administrations on file. Lines, Drains, and Airways Type Details Placement Removal Incision 05/19/21; 1001; Righ t; third finger 05/19/21 1001 by Sammie Cordero RN Incision 06/16/21; 1341; Left; palm 06/16 1341 by Tamara Georges RN Incision 07/04/23; 1505; Righ t; fourth finger 07/04/23 1505 by Kassandra London RN PIV 07/04/23; 1344; 22 g auge; cephalic vein (lateral side of arm), left; Anatomical Landmarks; Ailyn CARPENTER; distraction; 07/04/23; 1622 07/04/23 1344 by Ailyn Villanueva RN 07/04/23 1622 by Tamika Parisi RN documented in this encounter Social History Tobacco Use Types Packs/Day Years [...] PM EDT documented as of this encounter OR Notes * Anesthesia Postprocedure Evaluation - Sergey Andrew MD - 07/04/2023 3:39 PM EST Department of Anesthesiology Post-procedure Note Patient: Ebonie Sol Procedure Summary Date: 07/04/23 Room / Location: [address] Anesthesia Start: 1455 Anesthesia Stop: 152 Procedure: TENDON SHEATH INCISION (TRIGGER FINGER) (WRVU 3.11) (Right: Finger) Diagnosis: Trigger finger, unspecified finger, unspecified laterality (trigger finger) Surgeons: Laith Diehl MD Responsible Provider: Sergey Andrew MD Anesthesia Type: MAC ASA Status: 3 All Anesthesia Providers: Anesthesiologist: Sergey Andrew MD GEOSPATIAL EXTRACTOR ANALYSIS: Lorraine Humphrey CRNA Vitals Value Taken Time BP 124/49 07/04/23 1530 Temp 36.4 ??C (97.5 ??F) 07/04/23 1526 Pulse 57 07/04/23 1539 Resp 18 07/04/23 1530 SpO2 100 % 07/04/23 1539 Pain Level 0 07/04/23 1530 Vitals shown include unfiled device data. Patient Location: PACU/[facility] Level of Consciousness: Awake and Alert Pain Management: Satisfactory Analgesia PONV: None Cardiovascular Status: At Baseline Respiratory Status: At Baseline Postoperative Fluid Status: Intravascular EUvolemia Possible Anesthetic Complications: NONE apparent at time of evaluation Final Primary Anesthesia Type: MAC (The anesthetic type performed was the same as planned.) Comments: * Anesthesia Preprocedure Evaluation - Sergey Andrew MD - 07/04/2023 1:48 PM EST Pre-Anesthesia Evaluation for: Ebonie Sol a 68 y.o. female. Procedure(s): TENDON SHEATH INCISION (TRIGGER FINGER) (WRVU 3.11) Patient Active Problem List Diagnosis Date Noted ??? Trigger ring finger of right hand 06/13/2023 ??? s/p A1 jeannette release right long finger with Dr. Diehl 05/19/2021 05/19/2021 ??? A1 jeannette release left index finger 06/16/21 Dr. Diehl 05/28/2016 ??? Hypoglycemia unawareness in type 1 diabetes mellitus 11/05/2015 ??? Carpal tunnel syndrome on left 04/02/2015 ??? Hypertension 02/16/2011 ??? CIS - Entered not Verified 08/28/2010 ??? CIS - type 1 DM Past Medical History: Diagnosis Date ??? A1 jeannette release left index finger 06/16/21 Dr. Diehl 05/28/2016 ??? Asthma ??? GERD (gastroesophageal reflux disease) ??? Hypertension ??? Median nerve injury ??? Type 1 diabetes Past Surgical History: Procedure Laterality Date ??? CARPAL TUNNEL RELEASE Right complicated by median nerve injury ??? SECTION x2 ??? PILONIDAL CYST EXCISION ??? PRO ENDOSCOPIC WRIST SURG RELEASE TRANSVERSE CARPAL LIGAMENT Left 06/16/2015 ENDOSCOPY WRIST W/ RELEASE TRANSVERSE CARPAL LIGAMENT performed by Laith Diehl MD at [facility] ??? PRO INCISE FINGER TENDON SHEATH Left 06/10/2016 TENDON SHEATH INCISION (TRIGGER FINGER) (WRVU 3.11) performed by Laith Diehl MD at [facility] ??? PRO INCISE FINGER TENDON SHEATH Left 09/26/2018 TENDON SHEATH INCISION (TRIGGER FINGER) (WRVU 3.11) performed by Laith Diehl MD at [facility] ??? PRO INCISE FINGER TENDON SHEATH Right 10/10/2018 TENDON SHEATH INCISION (TRIGGER FINGER) (WRVU 3.11) performed by Laith Diehl MD at [facility] ??? PRO INCISE FINGER TENDON SHEATH Right 05/19/2021 TENDON SHEATH INCISION (TRIGGER FINGER) (WRVU 3.11) performed by Laith Diehl MD at [facility] ??? PRO INCISE FINGER TENDON SHEATH Left 06/16/2021 TENDON SHEATH INCISION (TRIGGER FINGER) (WRVU 3.11) performed by Laith Diehl MD at [facility] Social History Tobacco Use ??? Smoking status: Former Types: Cigarettes ??? Smokeless tobacco: Never ??? Tobacco comments: quit 1978 Substance Use Topics ??? Alcohol use: Not Currently Comment: Stopped Feb 17, 2018 Social History Substance and Sexual Activity Drug Use No Allergies Allergen Reactions ??? Penicillins Anaphylaxis ??? Codeine Nausea And Vomiting ??? Prochlorperazine ??? Reclast [Zoledronic Clvx-Eyxmhhok-Rhtxg] VERTIGO ??? Naproxen Medications: MAR and/or home medications have been reviewed. Physical Exam: Preprocedure Vitals Current as of 07/04/23 1348 BP: 139/66 Pulse: 65 Resp: 16 SpO2: Temp: 36.6 ??C (97.9 ??F) Height: 149.9 cm (4' 11) (07/04/23) Weight: 57.6 kg (127 lb) (07/04/23) BMI: 25.65 IBW: 39.1 kg (86 lb 3.6 oz) Last edited 07/04/23 1322 by KD Airway Assessment: Mallampati: II TM distance: >3 FB Neck ROM: full Cardiovascular Assessment: Rhythm: regular Rate: normal Pulmonary Assessment: breath sounds clear to auscultation Dental Assessment: Misc Assessment: IV access: Peripheral line Last Filed Perioperative Cognitive Screening None Anesthesia Plan: ASA 3 MAC, with a(n) intravenous induction I have seen and examined the patient. I have reviewed the medical record and pertinent laboratory information. I have noted the major medical issues as outlined in the problem list. The patient is NPO and denies active GERD. I have reviewed risks from minor to major as outlined in the anesthesia consent form. She is aware that our care model is based on a team and I will be working with either a GEOSPATIAL EXTRACTOR ANALYSIS or resident physician. A resident physician means a physician who is in training to be an anesthesiologist. The patient acknowledged these risks and would like to proceed with the anesthesia plan. Sedation and local by surgeons. The patient expressed a desire for complete unawareness with this approach which I advised her I could not guarantee. Our plan is to follow a similar pharmacologic approach as her last anesthetic that she said was a good experience. Informed Consent: Anesthetic plan and risks discussed with patient. Plan discussed with GEOSPATIAL EXTRACTOR ANALYSIS. Anesthesia Screening documented in this encounter Plan of Treatment Upcoming Encounters Date Type Department Care Team (Late st Contact Info) Description 06/05/2024 10:15 AM EST Office [place] [address] Sgroi, Namita Chaudhary MD [facility] [place] [address] documented as of this encounter Goals Goal Patient Goal Type Associated Problems Recent Progress Patient-Stated? Author Exercise 3x per week (30 min per time) Exercise No Keila Arango CDE documented as of this encounter Visit Diagnoses Not on filedocumented in this encounter Administered Medications Inactive Administered Medications - up to 3 most recent administrations Medication Order MAR Action Action Date Dose Rate Site clindamycin (Cleocin) (150 mg/mL) injection Intravenous, PRN, Starting on Tue07/04/23 at 1506, Until Tue07/04/23 at 1524, Anesthesia Intra-op, Routine Given 07/04/2023 3:06 PM EST 600 mg dextrose 50% intravenous solution Intravenous, PRN, Starting on Tue07/04/23 at 1455, Until Tue07/04/23 at 1524, Anesthesia Intra-op, Routine Given 07/04/2023 3:00 PM EST 10 mLs Given 07/04/2023 2:55 PM EST 5 mLs fentaNYL (pf) (50 mcg/mL) multi-dose injection Intravenous, PRN, Starting on Tue07/04/23 at 1459, Until Tue07/04/23 at 1524, Anesthesia Intra-op, Routine Given 07/04/2023 3:10 PM EST 25 mcg Given 07/04/2023 2:59 PM EST 25 mcg ketorolac (Toradol) (30 mg/mL) injection Intravenous, PRN, Starting on Tue07/04/23 at 1522, Until Tue07/04/23 at 1533, Anesthesia Intra-op, Routine Given 07/04/2023 3:22 PM EST 15 mg lactated ringers infusion 1,000 mL, at 100 mL/hr, Intravenous, CONTINUOUS, Starting on Tue07/04/23 at 1330, Until Tue07/04/23 at 1622, Day of Surgery (Day of Procedure) Restarted 07/04/2023 2:55 PM EST New Bag 07/04/2023 1:45 PM EST 1,000 mLs 100 mL/hr midazolam (pf) (Versed) (1 mg/mL) multi-dose injection Intravenous, PRN, Starting on Tue07/04/23 at 1455, Until Tue07/04/23 at 1524, Anesthesia Intra-op, Routine Given 07/04/2023 2:55 PM EST 2 mg ondansetron (pf) (Zofran) (2 mg/mL) injection Intravenous, PRN, Starting on Tue07/04/23 at 1502, Until Tue07/04/23 at 1524, Anesthesia Intra-op, Routine Given 07/04/2023 3:02 PM EST 4 mg propofoL (Diprivan) (10 mg/mL) infusion Intravenous, CONTINUOUS PRN, Starting on Tue07/04/23 at 1458, Until Tue07/04/23 at 1524, Anesthesia Intra-op, Routine New Bag 07/04/2023 2:58 PM EST 50 mcg/kg/min 13.95 mL/hr documented in this encounter Care Teams Food Safety Technician Relationship Specialty Start Date End Date Mitchell Yap MD [address] [place] [id number] PCP - General 05/19/10 07/17/23 documented as of this encounter
--- OUTSIDE RECORDS SUMMARY | 2024-04-18 13:12 | XMS_ITS | Encounter Summary ---
Author Organization [facility] [place] [address] Care Team Providers Care Grad Intern Name Role Phone Mitchell Yap MD Primary Care Provider [phone] Reason for Visit * Reason Comments Right Hand Pain NXR RIGHT HAND CARLOS PUTRYN'S RING FINGER NO INJURY * Consultation (Routine) - Closed Specialty Diagnoses / Procedures Referred By Malka vera Referred To Contact Orthopaedics Diagnoses Dupuytren's contracture of right hand Self mail [facility] [address] [place] [address] Referral ID Status Reason Start Date Expiration Date Visits Re quested Visits Authorized [id number] Closed 04/18/2023 04/17/2024 1 1 Encounter Details Date Type Department Care Team (Late st Contact Info) Description 06/13/2023 9:30 AM EST Office [place] [address] Jean Diehl MD [facility] [place] [address] Trigger thumb of left hand; Trigger finger, unspecified finger, unspecified laterality; Trigger ring finger of right hand Social [...] - - Weight 57.6 kg (127 lb) 06/13/2023 9:13 AM EST Height 151.8 cm (4' 11.75) 06/13/2023 9:[address] Body Mass Index 25.01 06/13/2023 9:13 AM EST documented in this encounter Progress Notes * Jean Diehl MD - 06/13/2023 9:30 AM EST I examined Ebonie Sol and I agree with Dr. Castellanos's note. She has a tight locked right ring trigger finger. I have released multiple other trigger fingers for her. She was offered the option of steroid injection or trigger finger release for her right ring finger and she wishes to proceed with surgery as soon as possible. I described the technique to her that would include A1 jeannette release and possible removal of a portion of the FDS tendon if needed. She is aware potential risks associatedwith this that include but are not limited to infection, nerve injury, stiffness, swelling, recurrent triggering, chronic pain, and thickened scar in the palm. JEAN DIEHL MD * Prema Mckee RN - 06/13/2023 9:30 AM EST [place] opioid query, opioid risk assessment and acute opioid consent form completed today. Pre-op packet provided with patient education pamphlet, maps, clinic phone numbers and chlorhexidine soap to use the night before and morning of surgery. Patient knows to wait for a call from OR schedulers. Questions solicited and answered to patient satisfaction. Written material provided. Patient knows to call with any additional questions or concerns. ICIO * Marino Castellanos MD - 06/13/2023 9:30 AM EST Images from the original note were not included. PATIENT NAME: Ebonie Sol AGE: 68 y.o. MR#: [id number] DATE OF VISIT: 06/13/2023 DATE OF INJURY/ONSET: Chronic STAFF: Shanita CHIEF COMPLAINT: Right ring trigger finger HISTORY OF PRESENT ILLNESS: Ms. Sol is a RIGHT hand dominant 68 y.o. female, hx of type 1 diabetes who comes into clinic today for evaluation of the right. The patient has a history significant for multiple trigger finger release with Dr. Niño as well as a left-sided endoscopic carpal tunnel release. She does have a remote history of iatrogenic median nerve injury during a right open carpal tu nnel. She reports several months of triggering of the right ring finger. It is gone to the point now where she has to use her other hand to straighten the finger. She has a splint which she uses that helpsbut she cannot wear it all the time. She said it is also quite painful. She has not had any injections into this hand. Medications and Allergies were reviewed in eD-H PAST MEDICAL HX: Past Medical History: Diagnosis Date A1 jeannette release left index finger 06/16/21 Dr. Diehl 05/28/2016 Asthma GERD (gastroesophageal reflux disease) Hypertension Median nerve injury Type 1 diabetes PAST SURGICAL HX: Past Surgical History: Procedure Laterality Date CARPAL TUNNEL RELEASE Right complicated by median nerve injury SECTION x2 PILONIDAL CYST EXCISION PRO ENDOSCOPIC WRIST SURG RELEASE TRANSVERSE CARPAL LIGAMENT Left 06/16/2015 ENDOSCOPY WRIST W/ RELEASE TRANSVERSE CARPAL LIGAMENT performed by Jean Diehl MD at [facility] PRO INCISE FINGER TENDON SHEATH Left 06/10/2016 TENDON SHEATH INCISION (TRIGGER FINGER) (WRVU 3.11) performed by Jean Diehl MD at [facility] PRO INCISE FINGER TENDON SHEATH Left 09/26/2018 TENDON SHEATH INCISION (TRIGGER FINGER) (WRVU 3.11) performed by Jean Diehl MD at [facility] PRO INCISE FINGER TENDON SHEATH Right 10/10/2018 TENDON SHEATH INCISION (TRIGGER FINGER) (WRVU 3.11) performed by Jean Diehl MD at [facility] PRO INCISE FINGER TENDON SHEATH Right 05/19/2021 TENDON SHEATH INCISION (TRIGGER FINGER) (WRVU 3.11) performed by Jean Diehl MD at [facility] PRO INCISE FINGER TENDON SHEATH Left 06/16/2021 TENDON SHEATH INCISION (TRIGGER FINGER) (WRVU 3.11) performed by Jean Diehl MD at [facility] FAMILY HX: Family History Problem Relation Age of Onset Cancer Sister SOCIAL HX: Social History Occupational History 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 Tobacco Use Smoking status: Former Types: Cigarettes Smokeless tobacco: Never Tobacco comments: quit 1977 Vaping Use Vaping Use: Never used Substance and Sexual Activity Alcohol use: Not Currently Comment: Stopped Feb 17, 2018 Drug use: No Sexual activity: Not on file Activities: retired Ambulatory aids: none ROS: Constitutional: Denies fevers, chills Respiratory: Denies shortness of breath, cough Cardiac: Denies chest pain, palpitations GI: denies abdominal pain, nausea, vomiting Skin: Denies new rashes or lesions Neuro: no numbness, tingling, or weakness per HPI Musculoskeletal: as above in HPI 06/12/2023 General Health, Prior Treatments, PreExisting Condition, Health Habits, About You PROMIS-10 General Health Good PROMIS-10 Quality of Life Very Good PROMIS-10 Physical Health Good PROMIS-10 Mental Health Very Good PROMIS-10 Social Activity Very Good PROMIS-10 Everyday Activities Completely PROMIS-10 Pain 4 PROMIS-10 Fatigue Mild PROMIS-10 Social Roles Very Good PROMIS-10 Anxious or Depressed Sometimes PROMIS PHYSICAL SCORE (range 16-68) 47.7 PROMIS MENTAL SCORE (range 21-68) 50.8 Treatments Tried Oral natural supplements (e.g chondroitin and glucosamine) Acetaminophen (e.g. Tylenol) Over the counter anti-inflammatory drugs (e.g Advil, Aspirin, Aleve) Alzheimers or dementia No Cirrohosis or liver disease No HIV/AIDS No Pain in more than one joint in legs No Back or neck pain Yes Heart attack No Heart failure No Unclog/bypass leg arteries No Stroke, blood clot, TIA No Asthma Yes Emphysema, chronic bronchities, or COPD No Stomach ulcers/peptic ulcer disease No Poor kidney function No Rheumatic condtions No Cancer No Height (feet) 4 feet Height (Inches) 11 BMI Incomplete Live Alone No Marital situation Schooling Some college or 2 - year degree Race White Health Literacy Extremely Currently working No Not working because: Retired Employment status before injury Retired (not due to ill health) Returned to previous employment No Spending time in inpatient rehab facility No Rate overall condition today 8 06/27/2015 [facility] MCCURDY-RIGHT HAND PAIN 3.09 MCCURDY-LEFT HAND PAIN 2.9 No data to display PHYSICAL EXAM: Ms. Sol is a 68 y.o. female General appearance: in no acute distress, alert, cooperative Psych: cooperative with exam, appropriate Head: normocephalic, atraumatic EENT: EOMI grossly intact Neck: supple, trachea midline Cardiac: regular rate and rhythm by peripheral pulse Lungs: non-labored respirations Musculoskeletal: Inspection: prior trigger release scars in bilateral hand, thenar atrophy Palpation: prominence at the A1 jeannette ROM/Strength: Right ring held in flexed position, requires external force to straighten, trigger felt in palm over A1 jeannette Orthopedic testing: none Neurovascular: UE- absent sensation in median nerve distribution distally otherwise the SGILT R/U/Ax nerve distributions; AIN/PIN/U nerves fire; 2+ radial pulse DIAGNOSTIC STUDIES: No new imaging ASSESSMENT: Stage 3 right ring trigger finger. Discussed with the patient her operative and nonoperative options, the patient after hearing the risk and benefits would like to proceed with trigger finger release. Consent was obtained in the office today. The patient would not like an injection. She would like to discuss with anesthesia team increased sedation per her preference. We will add her on for surgery tomorrow. PLAN: - OR for R Ring trigger finger release. - She will return for follow up for surgery, possibly tomorrow. - The patient understands to contact us if they have any other questions or concerns. Marino Castellanos MD documented in this encounter Plan of Treatment Upcoming Encounters Date Type Department Care Team (Late st Contact Info) Description 06/05/2024 10:15 AM EST Office [place] [address] Namita Bansal MD [facility] [place] [address] documented as of this encounter Goals Goal Patient Goal Type Associated Problems Recent Progress Patient-Stated? Author Exercise 3x per week (30 min per time) Exercise No Keila Arango CDE documented as of this encounter Visit Diagnoses Diagnosis Trigger thumb of left hand Trigger finger (acquired) Trigger finger, unspecified finger, unspecified laterality documented in this encounter Care Teams Grad Intern Relationship Specialty Start Date End Date Mitchell Yap MD [address] [place] [id number] PCP - General 05/19/10 07/17/23 documented as of this encounter
--- OUTSIDE RECORDS SUMMARY | 2024-04-18 13:12 | XMS_ITS | Encounter Summary ---
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 1 diabetes mellitus; Hypercalcemia Social History Tobacco Use Types Packs/Day Years Used Date Smoking Tobacco: Former Cigarettes Smokeless Tobacco: Never Comments:quit 1977 Alcohol Use Standard Drinks/Week Comments Not Currently 0 (1 standard drink = 0.6 oz pur e alcohol) Stopped Feb 17, 2018 [facility] Inpatient Questions Answer Date Recorded [...] ??F) 12/05/2023 10:05 AM EDT Respiratory Rate - - Oxygen Saturation 100% 12/05/2023 10:05 AM EDT Inhaled Oxygen Concentration - - Weight 59 kg (130 lb) 12/05/2023 10:05 AM EDT nohemy hendrickson report Height 149.9 cm (4' 11) 12/05/2023 10:05 AM EDT Body Mass Index 26.26 12/05/2023 10:05 AM EDT documented in this encounter Patient Instructions * Patient Instructions* Geoffrey Soler MD - 12/05/2023 10:00 AM EDT We change your carb ratio to 1 units for 18 g carb today. documented in this encounter Progress Notes * Geoffrey Soler MD - 12/05/2023 10:00 AM EDT Images from the original note were not included. Endocrine Outpatient Visit Date of Visit: 12/05/2023 Reason for Visit: Ebonie Sol is a 68 y.o. female with PMH significant for osteoporosis, HTN, is in endocrine clinic for follow up of T1DM and osteoporosis. Plan from prior office note dated 08/22/23 Well-controlled T1DM without complications Per CGM review, time [...] goal: <7% - f/u in 3 months Interval History Patient feels that her blood sugar is unstable. Lyumjev is not covered by insurance. She starts on a new pump in September. Yesterday, patient injected the insulin before meals and did not finish the meal. She sometimes does not finish what she have for meals. Patient will get bone density in the falls. She is due to Reclast infusion in Apr. She does not want to be on HCTZ. Patient had issue getting the right Dexcom G7 for her pump. Bone fractures: T9 compression fracture Treatment to date: Reclast x 4 infusions (last 04/2023) Calcium in diet: oatmeal, 1/4 cup of yoghurt, cheese, beans, 1/4 cup of milk every day Calcium supplements: calcium carbonate 500 mg Vitamin D supplements: vit D 4000 units daily Exercise: gardening, walking the dog Previous work up for osteoporosis: high normal calcium with normal PTH, high normal 24-hr urine calcium (238), normal vitamin D, normal TSH Diabetes History: Diagnosed with DM at the age of 7 yo Diabetes provider: [facility] endo Current home regimen: Humalog in Tandem control IQ TDD 21.79 units TDBasal 10 units Tdbolus 11.79 units Basal Settings 1200-3:30 0.35 7:30-10:00 0.6 10:00-22:00 0.525 22:00-24:00 0.375 CF 1:60 Carb 1:15 Target 110 Insulin time 5 hrs TIR 83% Target 110 BG Monitoring: Dexcom G7>4 times a day Most recent HgA1C on 11/30/23 was 7.0% Typical Diet: 3 meals and 1-2 snacks a day Breakfast- oatmeal, fresh fruit Lunch- salad Supper- chicken, potato, carrots Drink- water, regular tea Typical exercise regimen: Trouble with hypoglycemia: after meals Hypoglycemia unawareness: no Family h/o DM: Paternal GM has DM Injection site: abdomen Recent admission with DKA: no Diabetes Complications Status: Eyes: no, will need surgery on R eye to fix for cataract surgery complications Kidneys: no Feet: no Sensory: no Autonomic: no Cardiac: no Prevention: last eye exam: August 2023 last microalbumin 6.5 on 11/30/23 last Cr: 11/30/23 0.9 last lipid panel: 11/30/23 LDL 56 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: no flu shot : [...] Mannitol Other Reaction(s): vertigo, unsteadiness Reclast [Zoledronic Bkem-Gdtabfrb-Ejtht] VERTIGO Water For Injection,Sterile Other Reaction(s): vertigo, unsteadiness Zoledronic Acid Other Reaction(s): vertigo, unsteadiness Naproxen Other Reaction(s): Unknown Social history: Social History Tobacco Use Smoking status: Former Types: Cigarettes Smokeless tobacco: Never Tobacco comments: quit 1977 Vaping Use Vaping status: Never Used Substance Use Topics Alcohol use: Not Currently Comment: Stopped Feb 17, 2018 Drug use: No Family history: Family History Problem Relation Age of Onset Cancer Sister Vitals BP 121/64 (BP Location (NBP): Left arm) Pulse 69 Temp 36.1 ??C (97 ??F) (Temporal) Ht 149.9 cm (4' 11) Wt 59 kg (130 lb) Comment: patient report SpO2 100% BMI 26.26 kg/m?? Physical Exam: General appearance: No apparent distress, resting comfortably in chair. HEENT: Moist mucous membranes, no visible thyroid enlargement CVS: RRR Pulmonary: Equal chest expansion GI: Abdomen non-tender Derm: no ulcers on feet Neuro: Grossly non focal. Right Foot: Monofilament testing: Intact sensation Dorsalis [...] PMH significant for T1DM (Last A1C of 7.0%) is here for further management of T1DM Diabetes. Well controlled controlled T1DM without complications Patient has good blood sugar control with Tandem pump per CGM review. She was 83% in range. She still has hypoglycemia after meals, mainly due to not finishing her meals. She does not want to give the insulin at the last bite due to potential high blood sugar. We will decrease her carb ration to prevent hypoglycemia. She may need to adjust her CF if she still has persistent hypoglycemia. She is up-to-date on her screening. Osteoporosis with compression fracture Elevated calcium Patient will finish her Reclast in April and get DXA at the end of this year. This will be her last dose of Reclast. Her calcium level is on the high normal end with normal PTH and high normal 24-hr urine calcium. We suspect that she may have mild hyperparathyroidism vs hypercalciuria. We recommend starting on HCTZ but patient is reluctant to be on medication. We plan to repeat her calcium, PTH and 24-hr urine calcium in 6 months and re-discuss about the therapy plan again. Plan: - change carb ratio to 1:18 - calcium, albumin, PTH, and 24-hr urine calcium during next visit in 6 months - Reclast in Apr 2024 with PCP - DXA at the end of the year with PCP - A1C goal: <7% - f/u in 6 months Patient is on Insulin pump: Diagnosis: [...] for this patient. Case discussed with Dr. Donohue. Geoffrey Soler MD PGY-5, Endocrinology Fellow Pager #[phone] * Kira Donohue MD - 12/05/2023 10:00 AM EDT Patient seen and case discussed with Dr. Soler. I agree with the assessment and plan as documented and was involved in all medical decision making, with the following addendum: Personally reviewed CGM data, agree with adjusting pump settings as described. Prior labs suggest she has primary hy perparathyroidism, possibly idiopathic hypercalciuria, which can adverse affect her bone health. Consider HCTZ challenge to differentiate between the two. Kira Donohue MD Piece Dyeing Machine Tendermarket research assistant Endocrinology Section [facility] documented in this encounter Plan of Treatment Upcoming Encounters Date Type Department Care Team (Late st Contact Info) Description 06/05/2024 10:15 AM EST Office [place] [address] Namita Bansal MD [facility] [place] [address] documented as of this encounter Goals Goal Patient Goal Type Associated Problems Recent Progress Patient-Stated? Author Exercise 3x per week (30 min per time) Exercise No Keila Arango, VELMAE documented as of this encounter Visit Diagnoses Diagnosis Type 1 diabetes mellitus without complication, with penitentiary current use of insulin pump- Primary Hypoglycemia unawareness in type 1 diabetes mellitus Type I (juvenile type) diabetes mellitus with other specified manifestations, not stated as uncontrolled Hypercalcemia documented in this encounter Care Teams Drapery And Upholstery Estimator Relationship Specialty Start Date End Date Corby Yancey MD [address] [place] [address] PCP - General Family Medicine 07/18/23 documented as of this encounter
--- OUTSIDE RECORDS SUMMARY | 2024-04-18 13:13 | XMS_ITS | Encounter Summary ---
[place] [address] Care Team Providers Care Clinical Biostatistics Director Name Role Phone Mitchell Yap MD Primary Care Provider [phone] Encounter Details Date Type Department Care Team (Late st Contact Info) Description 12/08/2022 1:00 PM EDT Office Visit [place] [address] Krishan Victor, [facility] [place] [address] Type 1 diabetes mellitus with hypoglycemia and without coma; Osteoporosis, unspecified osteoporosis type, unspecified pathological fracture presence Social History Tobacco Use Types Packs/Day Years [...] Sign Reading Time Taken Comments Blood Pressure 95/50 12/08/2022 12:55 PM EDT Pulse 90 12/08/2022 12:55 PM EDT Temperature - - Respiratory Rate - - Oxygen Saturation 100% 12/08/2022 12:55 PM EDT Inhaled Oxygen Concentration - - Weight 57.6 kg (127 lb) 12/08/2022 12:55 PM EDT Height 152.4 cm (5') 12/08/2022 12:55 PM EDT Body Mass Index 24.8 12/08/2022 12:55 PM EDT documented in this encounter Patient Instructions * Patient Instructions* Krishan Victor DO - 12/08/2022 1:00 PM EDT We recommend waiting two hours after you take a bolus to reassess whether any more insulin is needed. This should reduce the frequency of low blood sugar and allow for more accurate adjustments to your pump settings. For the osteoporosis, please have labs today. We will likely then order a Reclast infusion and, if the labs are consistent with primary hyperparathyroidism, we will refer you to endocrine surgery. We will send xray and Reclast orders to [facility]. documented in this encounter Progress Notes * Krishan Victor DO - 12/08/2022 1:00 PM EDT Images from the original note were not included. Ms. Ebonie Sol is an 67 y.o. female who presents for ongoing care of T1DM and osteoporosis. Interval history: Back from vacation. [place] out west. Past couple weeks since being back she has been having diarrhea. Recently drinking Pedialyte and following BRAT (banana, rice, applesauce, toast) diet because of this. Has had trouble controlling the low blood glucose because of this. She is very concerned about high blood glucose and developing complications of diabetes. As a result she is aggressive with correcting high blood sugar. We reviewed in detail her pump data which on 11/29 showed the 4 boluses were given over short period of time totaling about 8 units resulting in severe hypoglycemia for which her had to give her glucagon. Had a less severe but similar episode 1 week prior on 11/29. Plan from previous visit 09/27/22: 67-year-old female presents for follow-up of type 1 diabetes and osteoporosis. The past we have discussed with her to avoid multiple boluses for overcorrection when her glucose is high and she frequently has had an unacceptably high amount of blood glucose. Last week she becameprofoundly low after multiple boluses on September 20. She was hospitalized for 3 days at thattime. Since then she has been using less manual bolusing. Additionally her basal rates were adjusted down as listed below. Today we modified her insulin to carb ratio from 1: 13-1: 15. I also increased her sensitivity factor from 55 to 60. Carb ratio to 15 Sensitivity factor 60 Basal [id number] 0.4 5087-0646 0.15 3639-4411 0.475 5239-0583 0.5 She has osteoporosis with a T score of -3.7 in her spine. She also reports that she had a history of spinal compression fracture. She has been treated with Reclast in the past. Her last Reclast was June 2021 she thinks. Her serum calcium is high though PTH is not particularly high. The next beststep to assess will be a 24-hour urine calcium. She will be leaving in mid October to go an extended road trip. She would like to have everything set with her pump settings prior to this. We will try to see her back before she leaves. Patient Active Problem List Diagnosis s/p A1 jeannette release right long finger with Dr. Diehl 05/19/2021 A1 jeannette release left index finger 06/16/21 Dr. Diehl Hypoglycemia unawareness in type 1 diabetes mellitus Carpal tunnel syndrome on left Hypertension Overview Note: CIS - Entered not Verified CIS - type 1 DM Overview Note: in excellent control using an insulin pump and CGMS. Diagnosed at age 7 Current Outpatient Medications: insulin lispro (humaLOG) 100 unit/mL Solution, INJECT 40 TO 50 UNITS UNDER THE SKIN CONTINUOUS DAILY VIA PUMP, Disp: 50 mL, Rfl: 1 dexlansoprazole (Dexilant) [address] capsule, Take 30 mg by mouth daily., Disp: , Rfl: calcium carbonate/vitamin D3 (CALCIUM WITH VITAMIN D3 ORAL), Take by mouth daily., Disp: , Rfl: ProAir HFA 90 mcg/actuation HFA Aerosol Inhaler, INHALE 1-2 PUFFS BY MOUTH EVERY 4 HOURS NEEDED,Disp: , Rfl: aspirin EC 81 mg Tablet, Delayed Release (E.C.), every other day., Disp: , Rfl: blood sugar diagnostic strips (Contour Next Test Strips) Strip, TEST 8 TIMES A DAY, Disp: 700 strip, Rfl: 2 cholecalciferol (Vitamin D3) 1,000 unit Tablet, Take by mouth daily., Disp: , Rfl: cyclobenzaprine (Flexeril) 5 mg Tablet, TAKE 1 TO 2 TABLETS BY MOUTH TWO TIMES A DAY NEEDED, Disp: , Rfl: atorvastatin (Lipitor) 20 mg Tablet, TAKE ONE TABLET BY MOUTH AT BEDTIME, Disp: , Rfl: glucagon, Human Recombinant, 1 mg Recon Soln, as needed., Disp: , Rfl: pantoprazole EC (Protonix) 40 mg Tablet, Delayed Release (E.C.), TAKE ONE TABLET BY MOUTH EVERY DAY, Disp: , Rfl: zoledronic rcuk-drtuelsp-ouecn (zoledronic Acid) 5 mg/100 mL IV solution, Inject 5 mg into the vein. Yearly, Disp: , Rfl: insulin needles, disposable, (BD ULTRA-FINE SHORT PEN NEEDLE) 31 gauge x 5/16 Needle, 1 Box by [facility].(Non-Drug; Combo Route) route 4 times daily. Box of 100, Disp: 1 each, Rfl: 3 insulin glargine (LANTUS SOLOSTAR U-100 INSULIN) 100 unit/mL (3 mL) pen, Inject 10 Units subcutaneously daily. (Patient not taking: No sig reported), Disp: 15 mL, Rfl: 3 MAGNESIUM ORAL, Take by mouth daily., Disp: , Rfl: acetaminophen (TYLENOL) 500 mg Tablet, Take 1,000 mg by mouth every 6 hours as needed for Pain., Disp: , Rfl: ibuprofen (ADVIL;MOTRIN) 200 mg Tablet, Take 600 mg by mouth daily as needed for Pain., Disp: , Rfl: Diabetic Supplies, Miscellan. Misc, CMN form faxed to [employer], Disp: 100 each, Rfl: 12 Diabetic Supplies, Miscellan. Misc, PWO faxed to [facility], Disp: 100 each, Rfl: 12 ADVAIR DISKUS 100-50 mcg/dose Disk with Device, Inhale 1 puff into the lungs daily., Disp: , Rfl: Diabetic Supplies, Miscellan. [facility], Form faxed to [facility] diabetes for insulin pump supplies, Disp: 1 each, Rfl: 3 multivitamin with minerals (THERA-M) 9-0.4 mg Tablet, Take 1 tablet by mouth daily., Disp: , Rfl: lisinopril (PRINIVIL;ZESTRIL) 20 mg Tablet, Take 1 tablet by mouth daily., Disp: 30 tablet, Rfl: has a past medical history of A1 jeannette release left index finger 06/16/21 Dr. Diehl (05/28/2016),Asthma, GERD (gastroesophageal reflux disease), Hypertension, Median nerve injury, and Type 1 diabetes. Physical Exam: Patient Vitals for the past 24 hrs: Pulse BP SpO2 12/08/22 1255 90 95/50 100 % Wt & BMI By Encounter Date Flowsheet Row Office Visit from 09/27/2022 in Endocrinology at [facility] Office Visit from 08/02/2022 in Endocrinology at [facility] Weight 59 kg (130 lb) 1 09/27/2022 1113 -- [Patient declined] 1 08/02/2022 0804 BMI 25.6 1 09/27/2022 1113 -- General: no acute distress, pleasant, sitting comfortably Respiratory: symmetrical chest expansion, breathing comfortably on room air Musculoskeletal: Moving all 4 extremities Feet: no wounds, sensation intact Psychological: alert/oriented to person, place, time; normal affect; memory intact; normal judgement/insight Radiology Studies: Laboratory Data: Latest Reference Range & Units 08/02/22 07:42 08/02/22 07:50 Sodium 135 - 145 mmol/L 144 Potassium 3.5 - 5.0 mmol/L 4.2 Chloride 98 - 107 mmol/L 108 (H) CO2 22 - 31 mmol/L 25 Anion Gap 5 - 15 mmol/L 11 BUN 8 - 18 mg/dL 22 (H) Creatinine 0.70 - 1.20 mg/dL 0.81 Estimated GFR >=60 mL/min/1.73 m?? 81 Calcium 8.5 - 10.5 mg/dL 10.5 Glucose Lvl 65 - 199 mg/dL 154 Hemoglobin A1C 4.3 - 5.6 % 7.2 (H) Est Avg Gluc mg/dL 160 Albumin 3.2 - 5.2 g/dL 4.3 Chol, Total mg/dL 142 HDL mg/dL 68 Chol/HDL Ratio ratio 2.1 Triglycerides mg/dL 65 LDL Cholesterol mg/dL 61 Lipid Interpretation See Note 25-OH Vit D Total 21 - 100 ng/mL 53 25-OH Vit D Interp Sufficient TSH 0.27 - 4.20 mcIU/mL 4.00 PTH 15 - 65 pg/mL 31 Alb/Cr Ratio, Random 0 - 29 mcg/mg Cr 3 U Albumin Conc, Random mg/L 7.6 U Creatinine mg/dL 220 (H): Data is abnormally high Medtronic Pump Data: Assessment / Plan: 67-year-old woman presents for follow-up of type 1 diabetes and osteoporosis. Overall her glucose control is good and she has time in range 80%. However she does continue to have episodes of hypoglycemia caused by overly aggressive correction of hyperglycemia. We discussed with her that she should make a concerted effort to allow 2 hours after bolusing before she gives herself repeated insulin boluses. We discussed that hypoglycemia can be fatal. She has severe osteoporosis with a T score of -3.7 in the spine. She tells me she has had a spinal compression fracture as well, though I do not have records of that. She last received Reclast in June 2021. Her labs show a high normal calcium, normal Vit D, high normal PTH and high normal 24-hour urine calcium. Taken together these may be indicative of mild primary hyperparathyroidism for which a parathyroidectomy would be indicated. We will repeat the labs to confirm. Given the severity of her osteoporosis we would still recommend a dose of Reclast at this time while the work-up and possible surgical management of the primary hyperparathyroidism proceeds. -No changes made to pump settings today however we encouraged her not to use multiple boluses to correct high glucose but to rather wait 2 hours before repeating a bolus -Repeat labs including calcium, PTH, vitamin D. If consistent with hyperparathyroidism would refer to surgery for management -Do to back pain, reported history of compression fracture we will obtain spinal xrays -She is doing the labs and xray at [facility] -Recommend Reclast infusion now. This will be at [facility] as well. Discussed with attending physician, Dr. Donohue. Krishan Victor DO Endocrinology Fellow * Kira Donohue MD - 12/08/2022 1:00 PM EDT Patient seen and case discussed with Dr. Victor. I agree with the assessment and plan as documented and was involved in all medical decision making, with the following addendum: discussed at length with patient and her importance of avoidance of hypoglycemia. Review of more than 72 hoursof CGM data reveals that hypoglycemia frequently follows episodes of hyperglycemia, which is most li jovita due to overcorrection as patient does admit to providing more correction than needed. No changes made to her pump settings. Agree with Dr. Victor in regards to osteoporosis care. Kira Donohue MD Foot Orthopedistteacher's assistant Endocrinology Section [facility] documented in this encounter Plan of Treatment Upcoming Encounters Date Type Department Care Team (Late st Contact Info) Description 06/05/2024 10:15 AM EST Office Visit [place] [address] Namita Bansal MD [facility] [place] [address] documented as of this encounter Goals Goal Patient Goal Type Associated Problems Recent Progress Patient-Stated? Author Exercise 3x per week (30 min per time) Exercise No Keila Arango, CHRISTIANO documented as of this encounter Results * (ABNORMAL) Hemoglobin A1c (02/21/2023 9:21 AM EDT) Hemoglobin A1c 6.5(H) 4.3 - 5.6 % [facility] Comment: Reference Range: 4.3 - 5.6% [...] Mellitus, Diabetes Care 2013; 36: Suppl. 1, S67-60 Estimated Average Glucose 139 mg/dL [facility] Comment: eAG equivalents for HbA1c percentages: [...] into estimated average glucose values. ??Diabetes Care 2008:31(8):2183-2203. Blood 02/21/2023 9:21 AM EDT 02/21/2023 9:30 AM EDT Narrative Resulting Agency Comment Spec In Lab Kira Donohue MD CHEMISTRY ORDERABLES Performing Organization Address City/State/[facility] Co de Phone Number [facility] [address] documented in this encounter Visit Diagnoses Diagnosis Type 1 diabetes mellitus with hypoglycemia and without coma Type I (juvenile type) diabetes mellitus with other specified manifestations, not stated as uncontrolled Osteoporosis, unspecified osteoporosis type, unspecified pathological fracture presence documented in this encounter Care Teams Clinical Biostatistics Director Relationship Specialty Start Date End Date Mitchell Yap MD [address] [place] [address] PCP - General 05/19/10 07/17/23 documented as of this encounter
--- OUTSIDE RECORDS SUMMARY | 2024-04-18 13:13 | XMS_ITS | Encounter Summary ---
[place] [address] Care Team Providers Care Enrolled Nurse Name Role Phone Mitchell Yap MD Primary Care Provider [phone] Reason for Visit * Reason Onset Date Comments Prior Authorization 04/05/2022 Encounter Details Date Type Department Care Team (Late st Contact Info) Description 04/05/2022 Tele[place] [id number] Namita Cordero Prior Authorization Social History Tobacco [...] * Telephone Encounter - Namita Cordero - 04/06/2022 11:38 AM EDT Previous Medications Tried Medication: Humalog - via pump Medication: Lantus - via pump Medication: Testing 8x daily * Telephone Encounter - Namita Cordero - 04/06/2022 11:37 AM EDT Medication Prior Authorization Avel Medication name/dose/directions: [employer] Rationale for request: Type I DM (E10.9) Health plan: [place] Medicaid (Fax) [place]: [phone] Authorizing apparel trimmings sales representative name: Nedra Sent to health plan on: 04/06/22 Health plan decision: Approved Quantity approved: 5 per 35 days Authorization number: [id number] Start date: 04/06/22 End date: 04/06/23 * Telephone Encounter - Namita Cordero - 04/05/2022 7:33 AM EDT Received PA for medtronic sensors Will complete as soon as possible [place] Medicaid [id number] documented in this encounter Plan of Treatment Upcoming Encounters Date Type Department Care Team (Late st Contact Info) Description 06/05/2024 10:15 AM EST Office [place] [address] Namita Bansal MD [facility] [place] [address] documented as of this encounter Goals Goal Patient Goal Type Associated Problems Recent Progress Patient-Stated? Author Exercise 3x per week (30 min per time) Exercise No Keila Arango CDE documented as of this encounter Visit Diagnoses Not on filedocumented in this encounter Care Teams Enrolled Nurse Relationship Specialty Start Date End Date Mitchell Yap MD [address] [place] [address] PCP - General 05/19/10 07/17/23 documented as of this encounter
--- OUTSIDE RECORDS SUMMARY | 2024-04-18 13:13 | XMS_ITS | Encounter Summary ---
[place] [address] Care Team Providers Care Physics Instructor Name Role Phone Mitchell Yap MD Primary Care Provider [phone] Encounter Details Date Type Department Care Team (Latest Contact Info) Description 08/02/2022 7:30 AM EST Laboratory Appointment Lab [address] [place] [address] Diabetes mellitus type 1, uncomplicated; Type 1 diabetes mellitus with other specified complication; Type 1 diabetes mellitus with hyperglycemia Social History Tobacco Use Types Packs/Day Years [...] 10:15 AM EST Office [place] [address] [facility] [address] [place] [address] documented as of this encounter Goals Goal Patient Goal Type Associated Problems Recent Progress Patient-Stated? Author Exercise 3x per week (30 min per time) Exercise No Keila Arango, CHRISTIANO documented as of this encounter Procedures Procedure Name Priority Date/Time Associated Diagnosis Comments HC CREATININE - NON BLOOD Routine 08/02/2022 7:50 AM EST Diabetes mellitus type 1, uncomplicated HC THYROID STIMULATING HORMONE, SERUM Routine 08/02/2022 7:42 AM EST Diabetes mellitus type 1, uncomplicated PTH Routine 08/02/2022 7:42 AM EST HC VITAMIN D TOTAL-25 HYDROXY Routine 08/02/2022 7:42 AM EST Type 1 diabetes mellitus with hyperglycemia HC HEMOGLOBIN A1C Routine 08/02/2022 7:4 2 AM EST Diabetes mellitus type 1, uncomplicated HC ALBUMIN, SERUM Routine 08/02/2022 7:4 2 AM EST Type 1 diabetes mellitus with hyperglycemia LIPID PANEL (REFLEX DIRECT LDL) Routine 08/02/2022 7:42 AM EST Diabetes mellitus type 1, uncomplicated BASIC METABOLIC PANEL Routine 08/02/2022 7:42 AM EST Diabetes mellitus type 1, uncomplicated documented in this encounter Results * U Albumin/Cre Ratio (08/02/2022 7:50 AM EST) Albumin / Creatinin Ratio, Urine 3 0 - 29 mcg/mg Cr [facility] Comment: Reference Ranges: <30 mcg/mg: [...] 2, 357? 362 Albumin, Urine 7.6 mg/L [facility] Creatinine, Urine 220 mg/dL [facility] Urine 08/02/2022 7:50 AM EST 08/02/2022 8:00 AM EST Narrative Resulting Agency Comment Spec In Lab Norris Campos MD URINE ORDERABLES Performing Organization Address City/[facility] Co de Phone Number [facility] [place] [address] * PTH (08/02/2022 7:42 AM EST) Parathyroid Hormone 31 15 - 65 pg/mL [facility] Blood Venous Draw / Unknown 08/02/2022 7:42 AM EST 08/02/2022 3:54 PM EST Narrative Resulting Agency Comment Spec In Lab Krishan Victor DO CHEMISTRY ORDERABLE S Performing Organization Address [facility] Co de Phone Number [facility] [place] [address] * Albumin Level (08/02/2022 7:42 AM EST) Albumin 4.3 3.2 - 5.2 g/dL [facility] Blood 08/02/2022 7:42 AM EST 08/02/2022 7:51 AM EST Narrative Resulting Agency Comment Spec In Lab Mimi Jimenez MD CHEMISTRY ORDERABLES Performing Organization Address City/[facility] Co de Phone Number [facility] [place] [address] * Vitamin D, 25-Hydroxy (08/02/2022 7:42 AM EST) Vitamin D Total 25 OH 53 21 - 100 ng/mL [facility] Vit D Interp Sufficient [facility] Blood 08/02/2022 7:42 AM EST 08/02/2022 7:51 AM EST Narrative Resulting Agency Comment Spec In Lab Mimi Jimenez MD CHEMISTRY ORDERABLES [facility] [place] [address] * (ABNORMAL) Basic Metabolic Panel (non-fasting) (08/02/2022 7:42 AM EST) Glucose 154 65 - 199 mg/dL [facility] Comment:Diabetes: >=200 mg/d L plus symptoms Blood Urea Nitrogen 22(H) 8 - 18 mg/dL [facility] Creatinine 0.81 0.70 - 1.20 mg/dL [facility] Sodium 144 135 - 145 mmol/L [facility] Potassium 4.2 3.5 - 5.0 mmol/L [facility] Comment: Please note: ??Patients with WBC >100,000 may have falsely elevated Potassium levels. ??For accurate Potassium quantification in these patients send serum separator tube (gold top) for subsequent determinations. ??Contact the Clinical Chemistry Laboratory if there are any questions. Chloride 108(H) 98 - 107 mmol/L [facility] Carbon Dioxide 25 22 - 31 mmol/L [facility] Anion Gap 11 5 - 15 mmol/L [facility] Calcium 10.5 8.5 - 10.5 mg/dL [facility] Est Glomerular Filtration Rate 81 >=60 mL/min/1. 73 m?? [facility] Comment: This patient's estimated GFR [...] Lab Norris Campos MD CHEMISTRY ORDERABLE S [facility] [address] [place] [address] * Lipid Panel (Reflex Direct LDL) (08/02/2022 7:42 AM EST) Cholesterol, Total 142 mg/dL [facility] Comment: Lower Risk: <200 mg/dL Average Risk: 200-239 mg/dL Higher Risk: >aa=773 mg/dL Triglyceride 65 mg/dL [facility] Comment: Average Risk/Lower Risk: <150 mg/dL Borderline High Risk: 150-199 mg/dL High Risk: 200-499 mg/dL Very High Risk: >bj=892 mg/dL HDL Cholesterol 68 mg/dL [facility] Comment: Males: ?? Higher Risk: <40 mg/dL Females: ?? Higher Risk: <50 mg/dL LDL Cholesterol 61 mg/dL [facility] Comment: Lowest Risk: <100 mg/dL Lower Risk: 100-129 mg/dL Borderline High Risk: 130-159 mg/dL High Risk: 160-189 mg/dL Very High Risk: >lp=451 mg/dL Cholesterol/HDL Ratio 2.1 ratio [facility] Lipid Interpretation See Note [facility] Comment: Lipid management should be guided by a patient? s ASCVD risk, goals and preferences. ACC/AHA Guidelines recommend high intensity statin if clinical ASCVD or LDL greater than or equal to 190 mg/dL. http://byUs.comurl.com/ERV-KNP-Ocdeagdjh Adults aged 40-75 with LDL 70-189 mg/dL should have their 10 year ASCVD risk estimated with the ACC/AHA ASCVD risk carriage rider http://tools.acc.org/GACXY-Hiyy-Pjcddtstk/ Statin should be discussed if risk greater [...] Lab Norris Campos MD CHEMISTRY ORDERABLE S [facility] [place] [address] * (ABNORMAL) Hemoglobin A1c (08/02/2022 7:42 AM EST) Hemoglobin A1c 7.2(H) 4.3 - 5.6 % [facility] Comment: Reference Range: 4.3 - [...] Mellitus, Diabetes Care 2013; 36: Suppl. 1, S67-74 Estimated Average Glucose 160 mg/dL [facility] Comment: eAG equivalents for HbA1c percentages: HbA1c(%) ?eAG(mg/dL) 6.0 ?126 6.5 ?140 7.0 ?154 7.5 ?169 8.0 ?183 8.5 ?197 9.0 ?212 9.5 ?226 10.0 ? 240 Limitations: The eAG calculation has not been validated on women, individuals below 18 years old and above 70 years old, and individuals with hemoglobinopathies. Additional resources are available on the ADA website. Sam COPELAND, Leahta J, Blanca R, et al. ??Translating the A1C assay into estimated average glucose values. ??Diabetes Care 2008:31(8):0754-5008. Blood 08/02/2022 7:42 AM EST 08/02/2022 7:51 AM EST Narrative Resulting Agency Comment Spec In Lab Norris Campos MD CHEMISTRY ORDERABLE S Performing Organization Address [facility] Co de Phone Number [facility] [place] [address] * TSH [place] (08/02/2022 7:42 AM EST) Thyroid Stimulating Hormone 4.00 0.27 - 4.20 mcIU/mL [facility] Comment: Reference Interval (mcIU/mL): Females: ??First Trimester: 0.23-3.88 ??Second Trimester: 0.22-3.90 ??Third Trimester: 0.44-4.66 Blood 08/02/2022 7:42 AM EST 08/02/2022 7:51 AM EST Narrative Resulting Agency Comment Spec In Lab Norris Campos MD CHEMISTRY ORDERABLE S Performing Organization Address [facility] Co de Phone Number [facility] [place] [address] documented in this encounter Visit Diagnoses Diagnosis Diabetes mellitus type 1, uncomplicated Type I (juvenile type) diabetes mellitus without mention of complication, not stated as uncontrolled Type 1 diabetes mellitus with other specified complication Type 1 diabetes mellitus with hyperglycemia Type I (juvenile type) diabetes mellitus without mention of complication, not stated as uncontrolled documented in this encounter Care Teams Physics Instructor Relationship Specialty Start Date End Date Mitchell Yap MD [address] [place] [address] PCP - General 05/19/10 07/17/23 documented as of this encounter
--- OUTSIDE RECORDS SUMMARY | 2024-04-18 13:13 | XMS_ITS | Encounter Summary ---
[place] [address] Care Team Providers Care Manager Transmission Name Role Phone Mitchell Yap MD Primary Care Provider [phone] Reason for Visit * Reason Onset Date Comments Pump/sensor 03/25/2023 Encounter Details Date Type Department Care Team (Late st Contact Info) Description 03/25/2023 [place] [phone] Namita Cordero Pump/sensor Social History Tobacco Use [...] * Telephone Encounter - Namita Cordero - 03/28/2023 8:27 AM EDT Physician order / prescription Medicare Medtronic pump supply and insulin from [facility]. Filled out. 02/21/[address] Soler will sign. Secretaries will fax. * Telephone Encounter - Olivia Lopez - 03/25/2023 10:50 AM EDT [facility] is calling to hopefully get prescription sent to them today at * Telephone Encounter - Namita Cordero - 03/25/2023 9:37 AM EDT Received Prescription (Medtronic) from [facility] Will complete as soon as possible documented in this encounter Plan of Treatment Upcoming Encounters Date Type Department Care Team (Late st Contact Info) Description 06/05/2024 10:15 AM EST Office [place] [address] Namita Bansal MD [facility] [place] [address] documented as of this encounter Goals Goal Patient Goal Type Associated Problems Recent Progress Patient-Stated? Author Exercise 3x per week (30 min per time) Exercise No Keila Arango CDE documented as of this encounter Visit Diagnoses Not on filedocumented in this encounter Care Teams Manager Transmission Relationship Specialty Start Date End Date Mitchell Yap MD [address] [place] [address] PCP - General 05/19/10 07/17/23 documented as of this encounter
--- OUTSIDE RECORDS SUMMARY | 2024-04-18 13:13 | XMS_ITS | Encounter Summary ---
Author Organization [facility] [place] [address] Care Team Providers Care Tooth Inspector Name Role Phone Mitchell Yap MD Primary Care Provider [phone] Encounter Details Date Type Department Care Team (Latest Contact Info) Description 04/26/2022 Travel Social History Tobacco Use Types Packs/Day [...] 10:15 AM EST Office Visit [place] [address] Namita Bansal MD [facility] [place] [address] documented as of this encounter Goals Goal Patient Goal Type Associated Problems Recent Progress Patient-Stated? Author Exercise 3x per week (30 min per time) Exercise No Keila Arango, CDE documented as of this encounter Visit Diagnoses Not on filedocumented in this encounter Care Teams Tooth Inspector Relationship Specialty Start Date End Date Mitchell Yap MD [address] [place] [address] PCP - General 05/19/10 07/17/23 documented as of this encounter
--- OUTSIDE RECORDS SUMMARY | 2024-04-18 13:13 | XMS_ITS | Encounter Summary ---
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
--- OUTSIDE RECORDS SUMMARY | 2024-04-18 13:13 | XMS_ITS | Encounter Summary ---
Author Organization [facility] [place] [address] Care Team Providers Care Cushion Gum Applicator Name Role Phone Mitchell Yap MD Primary Care Provider [phone] Encounter Details Date Type Department Care Team (Latest Contact Info) Description 02/21/2023 10:30 AM EDT Office [place] [address] Geoffrey Soler MD [facility] ENDOCRINOLOGY [place] [address] Type 1 diabetes mellitus with hypoglycemia and [...] Sign Reading Time Taken Comments Blood Pressure 117/65 02/21/2023 10:29 AM EDT Pulse 63 02/21/2023 10:29 AM EDT Temperature - - Respiratory Rate - - Oxygen Saturation 100% 02/21/2023 10:29 AM EDT Inhaled Oxygen Concentration - - Weight 57.6 kg (127 lb) 02/21/2023 10:29 AM EDT Height 151.8 cm (4' 11.75) 02/21/2023 10:29 AM EDT Body Mass Index 25.01 02/21/2023 10:29 AM EDT documented in this encounter Patient Instructions * Patient Instructions* Geoffrey Soler MD - 02/21/2023 10:30 AM EDT Pump suggestion Omnipod 5 Tandem Dexcom CGM documented in this encounter Progress Notes * Geoffrey Soler MD - 02/21/2023 10:30 AM EDT Images from the original note were not included. Endocrine Outpatient Visit Date of Visit: 02/21/2023 Reason for Visit: Ebonie Sol is a 68 y.o. female with PMH significant for osteoporosis, HTN, is in endocrine clinic for follow up of T1DM , Plan from prior office note dated 12/08/22 from Krishan Victor DO 67-year-old woman presents for follow-up of type [...] is doing the labs and xray at [facility] -Recommend Reclast infusion now. This will be at [facility] as well. Interval History Patient has some pain in her feet when the BG was high. She will find a business proposal rep close to home. She has a new puppy which she has been more active. Has low BG after exercise. Patient sometimes did not finish the meal after insulin bolus. Patient did not get the Reclast infusion this year. Haven'tdone the xray. Does not eat much calcium rich food. Patient takes 1 pill of calcium per day. She eats oatmeal, yoghurt, cheese, beans every day. Bone fractures: h/o compression fractures? Treatment to date: Reclast x 3 infusions (last 06/2021), await 4th infusion Calcium in diet: oatmeal, 1/4 cup of yoghurt, cheese, beans, 1/4 cup of milk every day Calcium supplements: calcium carbonate 500 mg Vitamin D supplements: unsure about the dose, will get back to us Exercise: gardening, walking the dog Previous work up for osteoporosis: high normal calcium with normal PTH, normal 24-hr urine calcium,low vitamin D, normal TSH Diabetes History: Diagnosed with DM at the age of 7 yo Diabetes provider: [facility] endo Current home regimen: Humalog in Medtronic pump 670 G Basal [id number] 0.3 8129-0752 0.2 7987-8919 0.625 6277-4691 0.5 0000-22:30 ICR 1:15 [id number] ICR 1:16 Sensitivity factor 60 Active insulin time 4 hours TDD 18.6 +/- 2.9 TDB 10.4 TD bolus 8.2 TIR 72% BG Monitoring: Medtronic sensor >4 times a [...] Status: Eyes: no Kidneys: no Feet: rashes today Sensory: no Autonomic: no Cardiac: no [...] LDLCHOL 61 08/02/2022 LDLDIRECT 59 09/23/2021 regular business proposal rep: no special shoes: no flu shot : [...] Codeine Nausea And Vomiting Prochlorperazine Reclast [Zoledronic Wzfl-Arkuwuyj-Scxsu] VERTIGO Naproxen Social history: Social History Tobacco Use Smoking status: Former Types: Cigarettes Smokeless tobacco: Never Tobacco comments: quit 1977 Vaping Use Vaping Use: Never used Substance Use Topics Alcohol use: Not Currently Comment: Stopped Feb 17, 2018 Drug use: No Family history: Family History Problem Relation Age of Onset Cancer Sister Vitals BP 117/65 Pulse 63 Ht 151.8 cm (4' 11.75) Wt 57.6 kg (127 lb) SpO2 100% BMI 25.01 kg/m?? Physical Exam: Gen: NAD, talking in clear sentences. Sitting comfortably. HEENT: EOMI, PERRL, neck supple, oral mucus membranes moist, no visible thyroid enlargement Heart: RRR, no murmurs. Radial pulses +2. Lungs: CTAB, breathing non-labored. No wheezes or rhonchi. Good aeration Abd: Soft, non-distended, non-tender x4 quadrants, +bs SKIN: No open areas or redness to both feet Neuro: Moving all extremities. Grossly non-focal Right [...] outside. Her DXA has been declined since 2018 after starting on Reclast. We did some [...] 3 months - f/u in 3 months Patient is [...] for this patient. Case discussed with Dr. Grfrancis Soler MD PGY-5, Endocrinology Fellow Pager #[phone] * Mimi Jimenez MD - 02/21/2023 10:30 AM EDT Patient seen and evaluated by me and Dr. Soler. I agree with her above assessment and plan. Spine films indeed showed T9 fx. Other as per fellow. Mimi Jimenez MD Professor documented in this encounter Plan of Treatment Upcoming Encounters Date Type Department Care Team (Late st Contact Info) Description 06/05/2024 10:15 AM EST Office [place] [address] Namita Bansal MD [facility] DR ENDOCRINOLOGY [place] [address] documented as of this encounter Goals Goal Patient Goal Type Associated Problems Recent Progress Patient-Stated? Author Exercise 3x per week (30 min per time) Exercise Keila Espinoza, CHRISTIANO documented as of this encounter Results * XR Thoracic Spine 2 views (02/21/2023 1:11 PM EDT) Anatomical Region Laterality Modality N/A Digital Radiogra phy Impressions 02/21/2023 3:45 PM EDT 1. ??50% vertebral body height loss associated with compression fracture of T9. 2. ??Minimal facet arthropathy of the lower lumbar spine. Thank you for letting us participate in the care of this patient. ??If you are a health care provider and have any questions regarding this report, please contact the number below. ??For patients who have questions please contact the health director of healthcare systems that requested your imaging first. ? Electronically signed by: Elena Calderon MD, [facility] ([phone]), at 02/21/2023 3:45 PM Narrative 02/21/2023 3:45 PM EDT EXAMINATION: XR LUMBAR SPINE 2 OR 3 VIEWS (GENERIC), XR THORACIC SPINE 2 VIEWS CLINICAL HISTORY: osteoporosis with h/o compression fracture osteoporosis with h/o compression fracture (as entered by ordering provider in the order requisition) TECHNIQUE: AP and lateral views of the thoracic spine. AP and lateral views of the lumbar spine. COMPARISON: Thoracic and lumbar spine radiographs 12/09/2022. FINDINGS: Thoracic: There are 12 rib-bearing thoracic-type vertebral bodies. There is anterior wedge deformity of T9 with approximately 50% vertebral body height loss. No other sites of focal vertebral body height loss. On the lateral projection, the upper thoracic levels are obscured by overlapping bony and soft tissue structures. Disc spaces are relatively well-preserved. Lumbar: There are 5 nonrib-bearing lumbar-type vertebral bodies. No focal vertebral height loss. Disc spaces are relatively well-preserved. Minimal facet arthropathy between L3 and S1. Procedure Note Elena Calderon MD - 02/21/2023 EXAMINATION: XR LUMBAR SPINE 2 OR 3 VIEWS (GENERIC), XR THORACIC SPINE 2VIEWS CLINICAL HISTORY: osteoporosis with h/o compression fracture osteoporosiswith h/o compression fracture (as entered by ordering provider in the order requisition) TECHNIQUE: AP and lateral views of the thoracic spine. AP and lateral views of thelumbar spine. COMPARISON: Thoracic and lumbar spine radiographs 12/09/2022. FINDINGS: Thoracic: There are 12 rib-bearing thoracic-type vertebral bodies. Thereis anterior wedge deformity of T9 with approximately 50% vertebral bodyheight loss. No other sites of focal vertebral body height loss. On the lateral projection, the upper thoracic levels are obscured by overlapping bony andsoft tissue structures. Disc spaces are relatively well-preserved. Lumbar: There are 5 nonrib-bearing lumbar-type vertebral bodies. Nofocal vertebral height loss. Disc spaces are relatively well-preserved. Minimalfacet arthropathy between L3 and S1. IMPRESSION 1. 50% vertebral body height loss associated with compression fracture ofT9. 2. Minimal facet arthropathy of the lower lumbar spine. Thank you for letting us participate in the care of this patient. If youare a health care provider and have any questions regarding this report,please contact the number below. For patients who have questions please contactthe health director of healthcare systems that requested your imaging first. Electronically signed by: Elena Calderon MD, [facility]([phone]), at 02/21/2023 3:45 PM Mimi Jimenez MD IMG DX ORDERABLES * XR Lumbar Spine 2 Or 3 Views (Generic) (02/21/2023 1:11 PM EDT) Anatomical Region Laterality Modality L-spine N/A Digital Radiogra phy Impressions 02/21/2023 3:45 PM EDT 1. ??50% vertebral body height loss associated with compression fracture of T9. 2. ??Minimal facet arthropathy of the lower lumbar spine. Thank you for letting us participate in the care of this patient. ??If you are a health care provider and have any questions regarding this report, please contact the number below. ??For patients who have questions please contact the health director of healthcare systems that requested your imaging first. ? Electronically signed by: Elena Calderon MD, [facility] ([phone]), at 02/21/2023 3:45 PM Narrative 02/21/2023 3:45 PM EDT EXAMINATION: XR LUMBAR SPINE 2 OR 3 VIEWS (GENERIC), XR THORACIC SPINE 2 VIEWS CLINICAL HISTORY: osteoporosis with h/o compression fracture osteoporosis with h/o compression fracture (as entered by ordering provider in the order requisition) TECHNIQUE: AP and lateral views of the thoracic spine. AP and lateral views of the lumbar spine. COMPARISON: Thoracic and lumbar spine radiographs 12/09/2022. FINDINGS: Thoracic: There are 12 rib-bearing thoracic-type vertebral bodies. There is anterior wedge deformity of T9 with approximately 50% vertebral body height loss. No other sites of focal vertebral body height loss. On the lateral projection, the upper thoracic levels are obscured by overlapping bony and soft tissue structures. Disc spaces are relatively well-preserved. Lumbar: There are 5 nonrib-bearing lumbar-type vertebral bodies. No focal vertebral height loss. Disc spaces are relatively well-preserved. Minimal facet arthropathy between L3 and S1. Procedure Note Elena Calderon MD - 02/21/2023 EXAMINATION: XR LUMBAR SPINE 2 OR 3 VIEWS (GENERIC), XR THORACIC SPINE 2VIEWS CLINICAL HISTORY: osteoporosis with h/o compression fracture osteoporosiswith h/o compression fracture (as entered by ordering provider in the order requisition) TECHNIQUE: AP and lateral views of the thoracic spine. AP and lateral views of thelumbar spine. COMPARISON: Thoracic and lumbar spine radiographs 12/09/2022. FINDINGS: Thoracic: There are 12 rib-bearing thoracic-type vertebral bodies. Thereis anterior wedge deformity of T9 with approximately 50% vertebral bodyheight loss. No other sites of focal vertebral body height loss. On the lateral projection, the upper thoracic levels are obscured by overlapping bony andsoft tissue structures. Disc spaces are relatively well-preserved. Lumbar: There are 5 nonrib-bearing lumbar-type vertebral bodies. Nofocal vertebral height loss. Disc spaces are relatively well-preserved. Minimalfacet arthropathy between L3 and S1. IMPRESSION 1. 50% vertebral body height loss associated with compression fracture ofT9. 2. Minimal facet arthropathy of the lower lumbar spine. Thank you for letting us participate in the care of this patient. If youare a health care provider and have any questions regarding this report,please contact the number below. For patients who have questions please contactthe health director of healthcare systems that requested your imaging first. Electronically signed by: Elena Calderon MD, [facility]([phone]), at 02/21/2023 3:45 PM Mimi Jimenez MD IMG DX ORDERABLES documented in this encounter Visit Diagnoses Diagnosis Type 1 diabetes mellitus with hypoglycemia and without coma- Primary Type I (juvenile type) diabetes mellitus with other specified manifestations, not stated as uncontrolled Osteoporosis, unspecified osteoporosis type, unspecified pathological fracture presence Vitamin D deficiency Unspecified vitamin D deficiency Primary hyperparathyroidism Osteoporosis, unspecified osteoporosis type, unspecified pathological fracture presence documented in this encounter Care Teams Cushion Gum Applicator Relationship Specialty Start Date End Date Mitchell Yap MD [address] [place] [id number] PCP - General 05/19/10 07/17/23 documented as of this encounter
--- OUTSIDE RECORDS SUMMARY | 2024-04-18 13:13 | XMS_ITS | Encounter Summary ---
[place] [address] Care Team Providers Care Legal Intern Name Role Phone Mitchell Yap MD Primary Care Provider [phone] Encounter Details Date Type Department Care Team (Late st Contact Info) Description 09/27/2022 11:00 AM EDT Office [place] [address] Krishan Victor, [facility] [place] [address] Type 1 diabetes mellitus with hypoglycemia and without coma Social History Tobacco Use Types Packs/Day Years [...] Sign Reading Time Taken Comments Blood Pressure 136/67 09/27/2022 11:13 AM EDT Pulse 98 09/27/2022 11:13 AM EDT Temperature 37.1 ??C (98.8 ??F) 09/27/2022 11:13 AM E DT Respiratory Rate - - Oxygen Saturation 99% 09/27/2022 11:13 AM EDT Inhaled Oxygen Concentration - - Weight 59 kg (130 lb) 09/27/2022 11:13 AM EDT Height 151.8 cm (4' 11.75) 09/27/2022 11:13 AM EDT Body Mass Index 25.6 09/27/2022 11:13 AM EDT documented in this encounter Progress Notes * Krishan Victor, DO - 09/27/2022 11:00 AM EDT Images from the original note were not included. Ms. Ebonie Sol is an 67 y.o. female who presents for ongoing care of T1DM Interval history: Patient was hospitalized last week for hypoglycemia. When I review her Medtronic data from Tuesday,the day in which she became hypoglycemic and lost consciousness I see that her glucoses were being reported into the 300s for which she was given multiple manual boluses. I suspect her manual boluseswere the cause of her hypoglycemia. However they do note that there is a significant discrepancy between the guardian sensor readings and a fingerstick glucose. I advised that they should take this up with Medtronic to see if this issue can be resolved. We spent a lot of time reviewing her glucose data in detail today and made some adjustments as detailed below in the plan. In the past she has frequently employed manual bolusing when she is trying to do less of now. Patient Active Problem List Diagnosis ??? s/p A1 jeannette release right long finger with Dr. Diehl 05/19/2021 ??? A1 jeannette release left index finger 06/16/21 Dr. Diehl ??? 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 Carpal tunnel syndrome on left ??? Hypertension Overview Note: ??? CIS - Entered not Verified ??? CIS - type 1 DM Overview Note: in excellent control using an insulin pump and CGMS. Diagnosed at age 7 Current Outpatient Medications: ??? dexlansoprazole (Dexilant) [address] capsule, Take 30 mg by mouth daily., Disp: , Rfl: ??? calcium carbonate/vitamin D3 (CALCIUM WITH VITAMIN D3 ORAL), Take by mouth daily., Disp: , Rfl: ??? ProAir HFA 90 mcg/actuation HFA Aerosol Inhaler, INHALE 1-2 PUFFS BY MOUTH EVERY 4 HOURS NEEDED, Disp: , Rfl: ??? aspirin EC 81 mg Tablet, Delayed Release (E.C.), every other day., Disp: , Rfl: ??? blood sugar diagnostic strips (Contour Next Test Strips) Strip, TEST 8 TIMES A DAY, Disp: 700 strip, Rfl: 2 ??? insulin lispro (humaLOG) 100 unit/mL Solution, INJECT 40 TO 50 UNITS UNDER THE SKIN CONTINUOUS DAILY VIA PUMP, Disp: 50 mL, Rfl: 1 ??? cholecalciferol (Vitamin D3) 1,000 unit Tablet, Take by mouth daily., Disp: , Rfl: ??? cyclobenzaprine (Flexeril) 5 mg Tablet, TAKE 1 TO 2 TABLETS BY MOUTH TWO TIMES A DAY NEEDED,Disp: , Rfl: ??? atorvastatin (Lipitor) 20 mg Tablet, TAKE ONE TABLET BY MOUTH AT BEDTIME, Disp: , Rfl: ??? MAGNESIUM ORAL, Take by mouth daily., Disp: , Rfl: ??? acetaminophen (TYLENOL) 500 mg Tablet, Take 1,000 mg by mouth every 6 hours as needed for Pain., Disp: , Rfl: ??? Diabetic Supplies, [facility], CMN form faxed to [employer], Disp: 100 each, Rfl: 12 ??? Diabetic Supplies, [facility], PWO faxed to [facility], Disp: 100 each, Rfl: 12 ??? Diabetic Supplies, [facility], Form faxed to [facility] diabetes for insulin pump supplies, Disp: 1 each, Rfl: 3 ??? multivitamin with minerals (THERA-M) 9-0.4 mg Tablet, Take 1 tablet by mouth daily., Disp: , Rfl: ??? lisinopril (PRINIVIL;ZESTRIL) 20 mg Tablet, Take 1 tablet by mouth daily., Disp: 30 tablet, Rfl: ??? glucagon, Human Recombinant, 1 mg Recon Soln, as needed., Disp: , Rfl: ??? pantoprazole EC (Protonix) 40 mg Tablet, Delayed Release (E.C.), TAKE ONE TABLET BY MOUTH EVERYDAY, Disp: , Rfl: ??? zoledronic jdst-wboappwu-cvysd (zoledronic Acid) 5 mg/100 mL IV solution, Inject 5 mg into the vein. Yearly, Disp: , Rfl: ??? insulin needles, disposable, (BD ULTRA-FINE SHORT PEN NEEDLE) 31 gauge x 5/16 Needle, 1 Box byMisc.(Non-Drug; Combo Route) route 4 times daily. Box of 100, Disp: 1 each, Rfl: 3 ??? insulin glargine (LANTUS SOLOSTAR U-100 INSULIN) 100 unit/mL (3 mL) pen, Inject 10 Units subcutaneously daily. (Patient not taking: No sig reported), Disp: 15 mL, Rfl: 3 ??? ibuprofen (ADVIL;MOTRIN) 200 mg Tablet, Take 600 mg by mouth daily as needed for Pain., Disp: ,Rfl: ??? ADVAIR DISKUS 100-50 mcg/dose Disk with Device, Inhale 1 puff into the lungs daily., Disp: , Rfl: has a past medical history of A1 jeannette release left index finger 06/16/21 Dr. Diehl (05/28/2016),Asthma, GERD (gastroesophageal reflux disease), Hypertension, Median nerve injury, and Type 1 diabetes. Physical Exam: Patient Vitals for the past 24 hrs: Temp Pulse BP SpO2 09/27/22 1113 37.1 ??C (98.8 ??F) 98 136/67 99 % Wt & BMI By Encounter Date Flowsheet Row Office Visit from 09/27/2022 in Endocrinology at [facility] Office Visit from 08/02/2022 in Endocrinology at [facility] Weight 59 kg (130 lb) 1 09/27/2022 1113 -- [Patient declined] 1 08/02/2022 0804 BMI 25.6 1 09/27/2022 1113 -- General: no acute distress, pleasant, sitting comfortably Musculoskeletal: tender erythematous area around right elbow at sight of IV line, no immediately concerning features Feet: DP palpable b/l, Raynauds Psychological: alert/oriented to person, place, time; normal affect; memory intact; normal judgement/insight Laboratory Data: Assessment / Plan: 67-year-old female presents for follow-up of type [...] ratio to 15 Sensitivity factor 60 Basal 6575-5672 0.4 5930-7530 0.15 9465-9179 0.475 6554-7282 0.5 ?? She has osteoporosis with a T score of -3.7 in her spine. She also reports that she had a history of spinal compression fracture. She has been treated with Reclast in the past. Her last Reclast was June 2021 she thinks. Her serum calcium is high though PTH is not particularly high. The next beststep to assess will be a 24-hour urine calcium. ?? She will be leaving in mid October to go an extended road trip. She would like to have everything set with her pump settings prior to this. We will try to see her back before she leaves. Will discuss with attending physician, Dr. Jimenez. Krishan Victor DO Endocrinology Fellow * Mimi Jimenez MD - 09/27/2022 11:00 AM EDT Patient seen and evaluated by me and Dr. Victor. I agree with his above assessment and plan. Mimi Jimenez MD Professor documented in this encounter Plan of Treatment Upcoming Encounters Date Type Department Care Team (Late st Contact Info) Description 06/05/2024 10:15 AM EST Office [place] [address] Namita Bansal MD [facility] DR [place] [address] documented as of this encounter Goals Goal [...] uncontrolled documented in this encounter Care Teams Legal Intern Relationship Specialty Start Date End Date Mitchell Yap MD [address] [place] [id number] PCP - General 05/19/10 07/17/23 documented as of this encounter
--- OUTSIDE RECORDS SUMMARY | 2024-04-18 13:13 | XMS_ITS | Encounter Summary ---
Author Organization [facility] [place] [address] Care Team Providers Care Receptionist Secretary Name Role Phone Mitchell Yap MD Primary Care Provider [phone] Encounter Details Date Type Department Care Team (Latest Contact Info) Description 08/02/2022 Travel Social History Tobacco Use Types Packs/Day [...] 10:15 AM EST Office [place] [address] Namita Bansal MD [facility] [address] documented as of this encounter Goals Goal Patient Goal Type Associated Problems Recent Progress Patient-Stated? Author Exercise 3x per week (30 min per time) Exercise No Keila Arango, CDE documented as of this encounter Visit Diagnoses Not on filedocumented in this encounter Care Teams Receptionist Secretary Relationship Specialty Start Date End Date Mitchell Yap MD [address] [place] [id number] PCP - General 05/19/10 07/17/23 documented as of this encounter
--- OUTSIDE RECORDS SUMMARY | 2024-04-18 13:13 | XMS_ITS | Encounter Summary ---
Author Organization [facility] [place] [address] Care Team Providers Care Security Professional Name Role Phone Mitchell Yap MD Primary Care Provider [phone] Reason for Visit * Reason Onset Date Comments Medication Refill 07/08/2022 Encounter Details Date Type Department Care Team (Late st Contact Info) Description 07/08/2022 Refill [place] [address] Norris Campos MD [facility] [address] Social History Tobacco Use Types Packs/Day Years [...] 10:15 AM EST Office [place] [address] Namita Bansal MD [facility] [place] [address] documented as of this encounter Goals Goal Patient Goal Type Associated Problems Recent Progress Patient-Stated? Author Exercise 3x per week (30 min per time) Exercise No Keila Arango, VELMAE documented as of this encounter Visit Diagnoses Not on filedocumented in this encounter Care Teams Security Professional Relationship Specialty Start Date End Date Mitchell Yap MD [address] [place] [id number] PCP - General 05/19/10 07/17/23 documented as of this encounter
--- OUTSIDE RECORDS SUMMARY | 2024-04-18 13:13 | XMS_ITS | Encounter Summary ---
[place] [address] Care Team Providers Care Market Development Manager Name Role Phone Mitchell Yap MD Primary Care Provider [phone] Reason for Visit * Reason Onset Date Comments Pump/sensor 07/26/2022 Encounter Details Date Type Department Care Team (Late st Contact Info) Description 07/26/2022 Telephone [place] [phone] Namita Cordero Pump/sensor Social History Tobacco Use [...] * Telephone Encounter - Namita Cordero - 08/06/2022 9:30 AM EST Faxed 08/05 * Telephone Encounter - Namita Cordero - 07/26/2022 1:35 PM EST Prescription from [facility]. Filled out. Dr. Victor will sign. Secretaries will fax. * Telephone Encounter - Namita Cordero - 07/26/2022 8:35 AM EST Received prescription from [facility] Will complete as soon as possible documented in this encounter Plan of Treatment Upcoming Encounters Date Type Department Care Team (Late st Contact Info) Description 06/05/2024 10:15 AM EST Office [place] [address] Namita Bansal MD [facility] [place] [address] documented as of this encounter Goals Goal Patient Goal Type Associated Problems Recent Progress Patient-Stated? Author Exercise 3x per week (30 min per time) Exercise No Keila Arango CDE documented as of this encounter Visit Diagnoses Not on filedocumented in this encounter Care Teams Market Development Manager Relationship Specialty Start Date End Date Mitchell Yap MD [address] [place] [address] PCP - General 05/19/10 07/17/23 documented as of this encounter
--- OUTSIDE RECORDS SUMMARY | 2024-04-18 13:13 | XMS_ITS | Encounter Summary ---
[place] [address] Care Team Providers Care Site Operations Manager Name Role Phone Mitchell Yap MD Primary Care Provider [phone] Encounter Details Date Type Department Care Team (Late st Contact Info) Description 12/14/2022 Telephone [place] [phone] Halima Finney RN Social History Tobacco Use Types Packs/Day [...] encounter Miscellaneous Notes * Telephone Encounter - Halima Finney RN - 12/14/2022 12:13 PM EDT Faxed signed order sheet to [facility] [phone]. documented in this encounter Plan of Treatment Upcoming Encounters Date Type Department Care Team (Late st Contact Info) Description 06/05/2024 10:15 AM EST Office [place] [address] Namita Bansal MD [facility] [place] [address] documented as of this encounter Goals Goal Patient Goal Type Associated Problems Recent Progress Patient-Stated? Author Exercise 3x per week (30 min per time) Exercise No Keila Arango, CDLulu documented as of this encounter Visit Diagnoses Not on filedocumented in this encounter Care Teams Site Operations Manager Relationship Specialty Start Date End Date Mitchell Yap MD [address] [place] [address] PCP - General 05/19/10 07/17/23 documented as of this encounter
--- OUTSIDE RECORDS SUMMARY | 2024-04-18 13:13 | XMS_ITS | Encounter Summary ---
Author Organization [facility] Address [facility] [place] [address] Care Team Providers Care Driver Trainer Name Role Phone Mitchell Yap MD Primary Care Provider [phone] Encounter Details Date Type Department Care Team (Latest Contact Info) Description 02/21/2023 12:57 PM EDT - 02/21/2023 11:59 PM EDT Hospital Encounter XRay at [address] [place] [address] Mimi Jimenez MD [facility] [place] [place] [address] Osteoporosis, unspecified osteoporosis type, unspecified pathological fracture presence Discharge Disposition: Home Social History Tobacco Use [...] PM EDT documented as of this encounter Medications at Time of Discharge Medication Sig Dispensed Refills Start Date End Date dexlansoprazole (Dexilant) 30 mg capsule Take 30 mg by mouth daily. [...] TABLET BY MOUTH EVERY DAY 10/10/2020 zoledronic jhav-febirtaf-oxbwd (zoledronic Acid) 5 mg/100 mL IV solution Inject 5 mg into the vein. Yearly insulin needles, disposable, (BD ULTRA-FINE SHORT PEN NEEDLE) 31 gauge x 5/16 Needle 1 Box by [facility].(Non-Drug; Combo Route) route 4 times daily. Box of 100 1 each 3 06/26/2019 MAGNESIUM ORAL Take by mouth daily. acetaminophen (TYLENOL) 500 mg Tablet Take 1,000 mg by mouth every 6 hours as needed for Pain. ibuprofen (ADVIL;MOTRIN) 200 mg Tablet Take 600 mg by mouth daily as needed for Pain. Diabetic Supplies, Miscellan. [facility] CMN form faxed to [facility] 100 each 12 02/24/2017 Diabetic Supplies, Miscellan. [facility] PWO faxed to [facility] Medical 100 each 12 01/17/2017 ADVAIR DISKUS 100-50 mcg/dose Disk with Device Inhale 1 puff into the lungs daily. 11/23/2016 Diabetic Supplies, Miscellan. [facility] Form faxed to [facility] for insulin pump supplies 1 each 3 01/05/2016 multivitamin with minerals (THERA-M) 9-0.4 mg Tablet Take 1 tablet by mouth daily. lisinopril (PRINIVIL;ZESTRIL) 20 mg Tablet Take 1 tablet by mouth daily. 30 tablet 09/25/2014 insulin glargine (Lantus U-100 Insulin) 100 unit/mL Solution Inject 10 Units subcutaneously as needed (if pump is not working). Works for 24 hours. 10 mL 02/21/2023 05/26/2023 insulin lispro (humaLOG) 100 unit/mL SolutionIndications: Type 1 diabetes mellitus without complication, with salvage determiner current use of insulin pump INJECT 40 TO 50 UNITS UNDER THE SKIN CONTINUOUS DAILY VIA PUMP 50 mL 1 10/05/2022 05/26/2023 blood sugar diagnostic strips (Contour Next Test Strips) Strip TEST 8 TIMES A DAY 700 strip 2 07/09/2022 03/01/2023 documented as of this encounter Plan of Treatment Upcoming Encounters Date Type Department Care Team (Late st Contact Info) Description 06/05/2024 10:15 AM EST Office Visit [place] [address] Namita Bansal MD [facility] [place] [address] documented as of this encounter Goals Goal Patient Goal Type Associated Problems Recent Progress Patient-Stated? Author Exercise 3x per week (30 min per time) Exercise No Keila Arango, CHRISTIANO documented as of this encounter Procedures Procedure Name Priority Date/Time Associated Diagnosis Comments XR LUMBAR SPINE 2 OR 3 VIEWS Routine 02/21/2023 1:11 PM EDT Osteoporosis, unspecified osteoporosis type, unspecified pathological fracture presence XR THORACIC SPINE 2 VIEWS Routine 02/21/2023 1:11 PM EDT Osteoporosis, unspecified osteoporosis type, unspecified pathological fracture presence documented in this encounter Results * XR Thoracic Spine [...] who have questions please contact the health health care recruiter that requested your imaging first. ? Electronically signed by: Elena Calderon MD, [facility] ([phone]), at 02/21/2023 3:45 PM Narrative 02/21/2023 3:45 [...] patients who have questions please contactthe health health care recruiter that requested your imaging first. Electronically signed by: Elena Calderon MD, [facility]([phone]), at 02/21/2023 3:45 PM Mimi Jimenez MD [...] who have questions please contact the health health care recruiter that requested your imaging first. ? Electronically signed by: Elena Calderon MD, [facility] ([phone]), at 02/21/2023 3:45 PM Narrative 02/21/2023 3:45 [...] patients who have questions please contactthe health health care recruiter that requested your imaging first. Electronically signed by: Elena Calderon MD, [facility]([phone]), at 02/21/2023 3:45 PM Mimi Jimenez MD IMG DX ORDERABLES documented in this encounter Visit Diagnoses Diagnosis Osteoporosis, unspecified osteoporosis type, unspecified pathological fracture presence documented in this encounter Care Teams Driver Trainer Relationship Specialty Start Date End Date Mitchell Yap MD [address] [place] [address] PCP - General 05/19/10 07/17/23 documented as of this encounter
--- OUTSIDE RECORDS SUMMARY | 2024-04-18 13:13 | XMS_ITS | Encounter Summary ---
Author Organization [facility] [place] [address] Care Team Providers Care Operating Room Technician Name Role Phone Mitchell Yap MD Primary Care Provider [phone] Reason for Visit * Reason Onset Date Comments Medication Refill 11/25/2021 Encounter Details Date Type Department Care Team (Late st Contact Info) Description 11/25/2021 Refill [place] [address] Norris Campos MD [facility] [place] [address] Social History Tobacco Use Types Packs/Day Years [...] 10:15 AM EST Office [place] [address] Namita Bansal MD [facility] [place] [address] documented as of this encounter Goals Goal Patient Goal Type Associated Problems Recent Progress Patient-Stated? Author Exercise 3x per week (30 min per time) Exercise No Keila Arango, VELMAE documented as of this encounter Visit Diagnoses Not on filedocumented in this encounter Care Teams Operating Room Technician Relationship Specialty Start Date End Date Mitchell Yap MD [address] [place] [address] PCP - General 05/19/10 07/17/23 documented as of this encounter
--- OUTSIDE RECORDS SUMMARY | 2024-04-18 13:13 | XMS_ITS | Encounter Summary ---
[place] [address] Care Team Providers Care Mailing Machine Operator Name Role Phone Mitchell Yap MD Primary Care Provider [phone] Encounter Details Date Type Department Care Team (Late st Contact Info) Description 04/05/2023 Telephone [place] [phone] Genna Echols RN Social History Tobacco Use [...] Telephone Encounter - Genna Echols RN - 04/05/2023 1:14 PM EDT Copied from [facility] #[id number]. Topic: Specialty Dept CRMs - Generic Call >> Apr 04, 2023 1:47 PM Carol Quinn wrote: Specialist: Geoffrey Soler MD Relationship (if other than patient-full name): self Reason for Call: Patient called to ask about the scan and procedure recently discussed with doctor.Please refer to 03/30/23 patient message. documented in this encounter Plan of Treatment Upcoming Encounters Date Type Department Care Team (Late st Contact Info) Description 06/05/2024 10:15 AM EST Office [place] [address] Namita Bansal MD [facility] [place] [address] documented as of this encounter Goals Goal Patient Goal Type Associated Problems Recent Progress Patient-Stated? Author Exercise 3x per week (30 min per time) Exercise No Keila Arango CDE documented as of this encounter Visit Diagnoses Not on filedocumented in this encounter Care Teams Mailing Machine Operator Relationship Specialty Start Date End Date Mitchell Yap MD [address] [place] [address] PCP - General 05/19/10 07/17/23 documented as of this encounter
--- OUTSIDE RECORDS SUMMARY | 2024-04-18 13:13 | XMS_ITS | Encounter Summary ---
[place] [address] Care Team Providers Care Outpatient Coder Name Role Phone Mitchell Yap MD Primary Care Provider [phone] Encounter Details Date Type Department Care Team (Late st Contact Info) Description 08/12/2022 Telephone [place]ology [place] [address] Balbina Guan CMA Social History Tobacco Use Types Packs/Day Years [...] encounter Miscellaneous Notes * Telephone Encounter - Balbina Guan CMA - 08/12/2022 10:00 AM EST Faxed order forma for infusion set and reservior to [employer] Received conformation that fax was sent on 08/05/22 documented in this encounter Plan of Treatment Upcoming Encounters Date Type Department Care Team (Late st Contact Info) Description 06/05/2024 10:15 AM EST Office Visit Endocr[place]ology [place] [address] Namita Bansal MD [facility] [place] [address] documented as of this encounter Goals Goal Patient Goal Type Associated Problems Recent Progress Patient-Stated? Author Exercise 3x per week (30 min per time) Exercise No Keila Arango, CHRISTIANO documented as of this encounter Visit Diagnoses Not on filedocumented in this encounter Care Teams Outpatient Coder Relationship Specialty Start Date End Date Mitchell Yap MD [address] [place] [address] PCP - General 05/19/10 07/17/23 documented as of this encounter
--- OUTSIDE RECORDS SUMMARY | 2024-04-18 13:13 | XMS_ITS | Encounter Summary ---
[place] [address] Care Team Providers Care Clinching Machine Operator Name Role Phone Mitchell Yap MD Primary Care Provider [phone] Reason for Visit * Reason Onset Date Comments Pump/sensor 08/06/2022 Encounter Details Date Type Department Care Team (Late st Contact Info) Description 08/06/2022 Telephone [place] [phone] Namita Cordero Pump/sensor Social History Tobacco Use [...] * Telephone Encounter - Namita Cordero - 08/25/2022 2:48 PM EST Faxed 08/17 * Telephone Encounter - Namita Cordero - 08/09/2022 10:52 AM EST CMN from [employer]. Filled out. Dr. Victor will sign. Secretaries will fax. * Telephone Encounter - Namita Cordero - 08/06/2022 8:38 AM EST Received CMN from [employer] Will complete as soon as possible documented in this encounter Plan of Treatment Upcoming Encounters Date Type Department Care Team (Late st Contact Info) Description 06/05/2024 10:15 AM EST Office Visit [place] [address] Namita Bansal MD [facility] [place] [address] documented as of this encounter Goals Goal Patient Goal Type Associated Problems Recent Progress Patient-Stated? Author Exercise 3x per week (30 min per time) Exercise No Keila Arango CDE documented as of this encounter Visit Diagnoses Not on filedocumented in this encounter Care Teams Clinching Machine Operator Relationship Specialty Start Date End Date Mitchell Yap MD [address] [place] [address] PCP - General 05/19/10 07/17/23 documented as of this encounter
--- OUTSIDE RECORDS SUMMARY | 2024-04-18 13:13 | XMS_ITS | Encounter Summary ---
[place] [address] Care Team Providers Care Assembly Machine Operator Name Role Phone Mitchell Yap MD Primary Care Provider [phone] Reason for Visit * Reason Comments Medication Refill Encounter Details Date Type Department Care Team (Late st Contact Info) Description 10/05/2022 [place] [address] Krishan Victor, [facility] DR [place] [address] Type 1 diabetes mellitus without complication, with rodent exterminator current use of insulin pump Social History [...] 10:15 AM EST Office [place] [address] Namita Bansal MD [facility] DR [place] [address] documented as of this encounter Goals Goal Patient Goal Type Associated Problems Recent Progress Patient-Stated? Author Exercise 3x per week (30 min per time) Exercise No Keila Arango, CHRISTIANO documented as of this encounter Visit Diagnoses Diagnosis Type 1 diabetes mellitus without complication, with fdc current use of insulin pump documented in this encounter Care Teams Assembly Machine Operator Relationship Specialty Start Date End Date Mitchell Yap MD [address] [place] [address] PCP - General 05/19/10 07/17/23 documented as of this encounter
--- OUTSIDE RECORDS SUMMARY | 2024-04-18 13:13 | XMS_ITS | Encounter Summary ---
[place] [address] Care Team Providers Care Molder Labels Name Role Phone Mitchell Yap MD Primary Care Provider [phone] Reason for Referral * Consultation (Routine) - Closed Specialty Diagnoses / Procedures Referred By Malka vera Referred To Contact Orthopaedics Diagnoses Trigger finger, right ring finger Mitchell Yap MD [address] [place] [address] [facility] [address] [place] [phone] Referral ID Status Reason Start Date Expiration Date V isits Requested Visits Authorized [id number] Closed Consult, Test & Treat PCP Updated and/or Approved 04/06/2023 04/05/2024 12 12 Encounter Details Date Type Department Care Team (Latest Contact Info) Description 04/06/2023 Transcribe Orders eDH Incoming Referrals [phone] Mitchell Yap MD [address] [place] [address] Trigger finger, right ring finger Social History Tobacco Use Types Packs/Day Years [...] 10:15 AM EST Office Visit [place] [address] Namita Bansal MD [facility] [place] [address] Scheduled Referrals Name Type Priority Associated Diagnoses Order Schedule Referral to Orthopaedics Outpatient Referral Routine Trigger finger, right ring finger Ordered: 04/06/2023 documented as of this encounter Goals Goal Patient Goal Type Associated Problems Recent Progress Patient-Stated? Author Exercise 3x per week (30 min per time) Exercise No Keila Arango CDE documented as of this encounter Visit Diagnoses Diagnosis Trigger finger, right ring finger documented in this encounter Care Teams Molder Labels Relationship Specialty Start Date End Date Mitchell Yap MD [address] [place] [address] PCP - General 05/19/10 07/17/23 documented as of this encounter
--- OUTSIDE RECORDS SUMMARY | 2024-04-18 13:13 | XMS_ITS | Encounter Summary ---
[place] [address] Care Team Providers Care Graphic Art Technician Name Role Phone Mitchell Yap MD Primary Care Provider [phone] Encounter Details Date Type Department Care Team (Late st Contact Info) Description 12/04/2021 9:30 AM EDT Office [place] [address] Krishan Victor, [facility] [place]CRIN[place] [address] Type 1 diabetes mellitus without complication Social History Tobacco Use Types Packs/Day Years [...] Sign Reading Time Taken Comments Blood Pressure 136/70 12/04/2021 9:16 AM EDT Pulse 74 12/04/2021 9:16 AM EDT Temperature 36.4 ??C (97.6 ??F) 12/04/2021 9:16 AM ED T Respiratory Rate - - Oxygen Saturation 100% 12/04/2021 9:16 AM EDT Inhaled Oxygen Concentration - - Weight 54.4 kg (120 lb) 12/04/2021 9:16 AM EDT Height 151.8 cm (4' 11.75) 12/04/2021 9:16 AM E DT Body Mass Index 23.63 12/04/2021 9:16 AM EDT documented in this encounter Progress Notes * Krishan Victor, DO - 12/04/2021 9:30 AM EDT Ms. Ebonie Sol is an 66 y.o. female who presents for ongoing care of T1DM Interval history: 66-year-old female with a history of type 1 diabetes managed with insulin pump and CGM returns to clinic for follow-up. Last seen here August. She continues to have very good glucose control. Reports infrequent lows. Review of the data reveals the sometimes occurred either overnight or in the late evening. She feels the late evening ones are due to bolusing extra in the evening when she eats ice cream which she is planning to reduce. Plan per last clinic visit 09/23/21: Assessment: Patient is a 66 y.o. female with PMH significant for T1DM. She manages her DM with a medtronic pumpand guardian sensor. Last A1C of 7.4%. She continues to work on diet and exercise. Reviewed pump download today. She is in automode 87% of the time, avg glucose 141, estimating A1C of 6.7%. TDD of insulin 22.3 units a day, basal administration 45%, bolus is 55%. Changes sets every 3 days. Overall good control. ?? Review of AHA/ACC/ADA and Endocrine Society clinical practice guidelines, recommend that a moderateintensity statin should be started at age 40 in those with diabetes regardless of ASCVD risk. Goal LDL should be < 70 in general and < 55 in those with established cardiovascular disease or multiple risk factors. LDL is now at goal on her statin therapy ?? BP: at goal ?? Plan: --Medications: No changes to basal rates ?? --Monitoring: with CGM check BGs fasting in am, before each meal, 1-2 hours after meals and at bedtime. ?Target fasting blood sugars 90-140 ?pre-meal during daytime 90-150 ?1-2 h post meal below 180 ?Target A1c 7% for this patient. ?? --Patient will keep log of blood glucose and insulin used for review at next visit or bring CGM reader for download ?? --Diet and exercise: low fat/controlled carb diet & exercise as tolerated to keep weight down. --Prevention: planning to update Covid second booster --F/U lab for: ??A1C, creatinine, TSH --RTC: Next visit in September, then Q 3 months per medicare requirement.?? Patient Active Problem List Diagnosis ??? s/p [...] at age 7 Current Outpatient Medications: ??? cholecalciferol, Vitamin D3, (Vitamin D3) 1,000 unit Tablet, Take by mouth daily., Disp: , Rfl: ??? Contour Next Test Strips Strip, TEST 8 TIMES A DAY. DX: E10.9, Disp: 700 strip, Rfl: 3 ??? cyclobenzaprine (Flexeril) 5 mg Tablet, TAKE 1 TO 2 TABLETS BY MOUTH TWO TIMES A DAY NEEDED,Disp: , Rfl: ??? atorvastatin (Lipitor) 20 mg Tablet, TAKE ONE TABLET BY MOUTH AT BEDTIME, Disp: , Rfl: ??? insulin lispro (humaLOG) 100 unit/mL Solution, INJECT 40-50 UNITS SUBCUTANEOUSLY CONTINUOUS DAILY VIA PUMP. DX:E10.69, Disp: 50 mL, Rfl: 3 ??? glucagon, Human Recombinant, 1 mg Recon Soln, as needed., Disp: , Rfl: ??? pantoprazole EC (Protonix) 40 mg Tablet, Delayed Release (E.C.), TAKE ONE TABLET BY MOUTH EVERYDAY, Disp: , Rfl: ??? zoledronic hbjg-hqcnaoyb-qkgno (zoledronic Acid) 5 mg/100 mL IV solution, [...] reported), Disp: 15 mL, Rfl: 3 ??? MAGNESIUM ORAL, Take by mouth daily., Disp: , Rfl: ??? acetaminophen (TYLENOL) 500 mg Tablet, Take 1,000 mg by mouth every 6 hours as needed for Pain., Disp: , Rfl: ??? ibuprofen (ADVIL;MOTRIN) 200 mg Tablet, Take 600 mg by mouth daily as needed for Pain., Disp: ,Rfl: ??? Di[place], [place] [facility] [place] to [employer], Disp: 100 each, Rfl: 12 ??? Diabetic Supplies, [place] [facility] [place] to [facility], Disp: 100 each, Rfl: 12 ??? ADVAIR DISKUS 100-50 mcg/dose Disk with Device, Inhale 1 puff into the lungs daily., Disp: , Rfl: ??? Diabetic Supplies, [place] [facility] [place] [facility] [facility] for insulin pump supplies, Disp: 1 each, [...] past 24 hrs: Temp Pulse BP SpO2 12/04/21 0916 36.4 ??C (97.6 ??F) 74 136/70 100 % General: no acute distress, pleasant, sitting comfortably Face: not round or red Eyes: no lid lag; normal eye movements Nose: not enlarged Mouth: Mucous membranes moist Neck: no supraclavicular fat pads; trachea midline Respiratory: symmetrical chest expansion, breathing comfortably on room air Musculoskeletal: Moving all 4 extremities normally; normal female musculature Skin: normal temperature/texture Neurological: no tremors; normal gait Psychological: alert/oriented to person, place, time; normal affect; memory intact; normal judgement/insight Radiology Studies: Laboratory Data: Latest Reference Range & Units 09/23/21 09:34 Creatinine 0.70 - 1.20 mg/dL 0.72 Estimated GFR >=60 mL/min/1.73 m?? 88 [1] Latest Reference Range & Units 09/23/21 09:34 LDL Chol Direct mg/dL 59 [1] Latest Reference Range & Units 09/23/21 09:34 Hemoglobin A1C 4.3 - 5.6 % 7.4 (H) [1] Latest Reference Range & Units 09/23/21 10:15 Alb/Cr Ratio, Random 0 - 29 mcg/mg Cr <4 [1] U Albumin Conc, Random mg/L <3.0 U Creatinine mg/dL 78 Assessment / Plan: Patient with type 1 diabetes since age 7 returns to clinic for follow-up. She has had excellent diabetic control and has avoided serious diabetic complications. She continues to use the Medtronic pump and Guardian sensor though she does not feel the sensor is ideal for her active lifestyle as it see ms to become less accurate with repeated movement of her abdomen during the course of her work. However based on the data we have today she is in range 75% of the time. She is up-to-date with preventive care. We do not need to make any changes today. We will plan to see her back in clinic in 3 months. Discussed with attending physician, Dr. Jimenez. Krishan Victor DO Endocrinology Fellow * Mimi Jimenez MD - 12/04/2021 9:30 AM EDT Patient seen and seen evaluated by me and Dr. Victor. I agree with his above assessment and plan. Mimi Jimenez MD Professor documented in this encounter Plan of Treatment Upcoming Encounters Date Type Department Care Team (Late st Contact Info) Description 06/05/2024 10:15 AM EST Office [place] [address] Namita Bansal MD [facility] DR [place]OCRIN[place] [address] documented as of this encounter Goals Goal Patient Goal Type Associated Problems Recent Progress Patient-Stated? Author Exercise 3x per week (30 min per time) Exercise No Keila Arango, CDE documented as of this encounter Visit Diagnoses Diagnosis Type 1 diabetes mellitus without complication Type I (juvenile type) diabetes mellitus without mention of complication, not stated as uncontrolled documented in this encounter Care Teams Graphic Art Technician Relationship Specialty Start Date End Date Mitchell Yap MD [address] [place] [address] PCP - General 05/19/10 07/17/23 documented as of this encounter
--- OUTSIDE RECORDS SUMMARY | 2024-04-18 13:13 | XMS_ITS | Encounter Summary ---
[place] [address] Care Team Providers Care Humanities Coordinator Name Role Phone Mitchell Yap MD Primary Care Provider [phone] Encounter Details Date Type Department Care Team (Latest Contact Info) Description 02/21/2023 9:25 AM EDT Laboratory Appointment Lab [address] [address] Type 1 diabetes mellitus with hypoglycemia and [...] 10:15 AM EST Office [place] [address] Namita Bansal MD [facility] [place] [address] documented as of this encounter Goals Goal Patient Goal Type Associated Problems Recent Progress Patient-Stated? Author Exercise 3x per week (30 min per time) Exercise No Keila Arango CDE documented as of this encounter Procedures Procedure Name Priority Date/Time Associated Diagnosis Comments HEMOGLOBIN A1C Routine 02/21/2023 9:21 AM EDT Type 1 diabetes mellitus with hypoglycemia and without coma Osteoporosis, unspecified osteoporosis type, unspecified pathological fracture presence documented in this encounter Results * (ABNORMAL) Hemoglobin A1c (02/21/2023 9:21 AM EDT) Hemoglobin A1c 6.5(H) 4.3 - 5.6 % [facility] Comment: Reference Range: 4.3 - [...] 36: Suppl. 1, S67-74 Estimated Average Glucose 139 mg/dL [facility] Comment: eAG equivalents for HbA1c [...] into estimated average glucose values. ??Diabetes Care 2008:31(8):7228-5640. Blood 02/21/2023 9:21 AM EDT 02/21/2023 9:30 AM EDT Narrative Resulting Agency Comment Spec In Lab Kira Donohue MD CHEMISTRY ORDERABLES Performing Organization Address City/State/[facility] Co de Phone Number [facility] [place] [address] documented in this encounter Visit Diagnoses Diagnosis Type 1 diabetes mellitus with hypoglycemia and without coma Type I (juvenile type) diabetes mellitus with other specified manifestations, not stated as uncontrolled Osteoporosis, unspecified osteoporosis type, unspecified pathological fracture presence documented in this encounter Care Teams Humanities Coordinator Relationship Specialty Start Date End Date Mitchell Yap MD [address] [place] [address] PCP - General 05/19/10 07/17/23 documented as of this encounter
--- OUTSIDE RECORDS SUMMARY | 2024-04-18 13:13 | XMS_ITS | Encounter Summary ---
Author Organization [facility] [place] [address] Care Team Providers Care Patient Transporter Name Role Phone Mitchell Yap MD Primary Care Provider [phone] Reason for Visit * Reason Onset Date Comments Medication Refill 11/27/2021 Encounter Details Date Type Department Care Team (Late st Contact Info) Description 11/27/2021 [place] [address] Norris Campos MD [facility] [place] [place] [address] Social History Tobacco Use Types Packs/Day Years [...] 10:15 AM EST Office [place] [address] Namita Bansal MD [facility] [address] documented as of this encounter Goals Goal Patient Goal Type Associated Problems Recent Progress Patient-Stated? Author Exercise 3x per week (30 min per time) Exercise No Keila Arango, VELMAE documented as of this encounter Visit Diagnoses Not on filedocumented in this encounter Care Teams Patient Transporter Relationship Specialty Start Date End Date Mitchell Yap MD [address] [place] [address] PCP - General 05/19/10 07/17/23 documented as of this encounter
--- OUTSIDE RECORDS SUMMARY | 2024-04-18 13:13 | XMS_ITS | Encounter Summary ---
[place] [address] Care Team Providers Care Child Life Therapist Name Role Phone Mitchell Yap MD Primary Care Provider [phone] Reason for Visit * Reason Onset Date Comments Prior Authorization 12/13/2022 Encounter Details Date Type Department Care Team (Late st Contact Info) Description 12/13/2022 Telephone [place] [address] Namita Cordero Prior Authorization Social History Tobacco [...] * Telephone Encounter - Namita Cordero - 12/14/2022 7:11 AM EDT Health plan: [employer] ([facility]) [place]: [id number] Authorizing customer solutions representative name: Nedra Sent to health plan on: 12/14/22 PA Outcome: PA Approval Quantity approved: Authorization number: [id number] Start date: 07/14/22 End date: 06/26/23 * Telephone Encounter - Namita Cordero - 12/13/2022 1:54 PM EDT Images from the original note were not included. Medication Prior Authorization Andres Medication name/dose/directions: Contour Next Test Strips - Test 8x daily Rationale for request: Type I DM (E10.65) Health plan: [place] Medicaid ([facility]) [place]win: [id number] Authorizing customer solutions representative name: Nedra Sent to health plan on: 12/13/22 PA Outcome: Authorization number: [id number] Start date: End date: documented in this encounter Plan of Treatment Upcoming Encounters Date Type Department Care Team (Late st Contact Info) Description 06/05/2024 10:15 AM EST Office [place] [address] Namita Bansal MD [facility] [place] [address] documented as of this encounter Goals Goal Patient Goal Type Associated Problems Recent Progress Patient-Stated? Author Exercise 3x per week (30 min per time) Exercise No Keila Arango CDE documented as of this encounter Visit Diagnoses Not on filedocumented in this encounter Care Teams Child Life Therapist Relationship Specialty Start Date End Date Mitchell Yap MD [address] [place] [address] PCP - General 05/19/10 07/17/23 documented as of this encounter
--- OUTSIDE RECORDS SUMMARY | 2024-04-18 13:13 | XMS_ITS | Encounter Summary ---
[place] [address] Care Team Providers Care Box Order Person Name Role Phone Mitchell Yap MD Primary Care Provider [phone] Reason for Visit * Reason Comments Medication Refill Encounter Details Date Type Department Care Team (Late st Contact Info) Description 07/06/2022 [place] [address] Norris Campos MD [facility] [place] [address] Social History Tobacco Use Types Packs/Day Years [...] 10:15 AM EST Office [place] [phone] Namita Bansal MD [facility] [place] [address] documented as of this encounter Goals Goal Patient Goal Type Associated Problems Recent Progress Patient-Stated? Author Exercise 3x per week (30 min per time) Exercise No Keila Arango, CHRISTIANO documented as of this encounter Visit Diagnoses Not on filedocumented in this encounter Care Teams Box Order Person Relationship Specialty Start Date End Date Mitchell Yap MD [address] [place] [address] PCP - General 05/19/10 07/17/23 documented as of this encounter
--- OUTSIDE RECORDS SUMMARY | 2024-04-18 13:13 | XMS_ITS | Encounter Summary ---
[place] [address] Care Team Providers Care District Medical Examiner Name Role Phone Mitchell Yap MD Primary Care Provider [phone] Encounter Details Date Type Department Care Team (Late st Contact Info) Description 03/29/2023 Telephone [place] [address] Natalia Cardona Social History Tobacco Use Types [...] 10:15 AM EST Office [place] [address] Namita Bansal MD [facility] DR ENDOCRINOLOGY DEPT [place], [place] [id number] documented as of this encounter Goals Goal Patient Goal Type Associated Problems Recent Progress Patient-Stated? Author Exercise 3x per week (30 min per time) Exercise No Keila Arango, CDE documented as of this encounter Visit Diagnoses Not on filedocumented in this encounter Care Teams District Medical Examiner Relationship Specialty Start Date End Date Mitchell Yap MD [address] [place] [address] PCP - General 05/19/10 07/17/23 documented as of this encounter
--- OUTSIDE RECORDS SUMMARY | 2024-04-18 13:13 | XMS_ITS | Encounter Summary ---
[place] [address] Care Team Providers Care Bituminous Paving Machine Operator Name Role Phone Mitchell Yap MD Primary Care Provider [phone] Encounter Details Date Type Department Care Team (Late st Contact Info) Description 10/14/2022 Tele[place] [address] Natalia Cardona Social History Tobacco [...] 10:15 AM EST Office [place] [address] Namita Bansal MD [facility] DR ENDOCRINOLOGY DEPT [place], [place] [address] documented as of this encounter Goals Goal Patient Goal Type Associated Problems Recent Progress Patient-Stated? Author Exercise 3x per week (30 min per time) Exercise No Keila Arango, CDE documented as of this encounter Visit Diagnoses Not on filedocumented in this encounter Care Teams Bituminous Paving Machine Operator Relationship Specialty Start Date End Date Mitchell Yap MD [address] [place] [address] PCP - General 05/19/10 07/17/23 documented as of this encounter
--- OUTSIDE RECORDS SUMMARY | 2024-04-18 13:13 | XMS_ITS | Encounter Summary ---
Author Organization [facility] [place] [address] Care Team Providers Care Roll Up Helper Name Role Phone Mitchell Yap MD Primary Care Provider [phone] Encounter Details Date Type Department Care Team (Late st Contact Info) Description 04/05/2023 Orders [place] [address] Geoffrey Soler MD [facility] DR [place] [address] Osteoporosis, unspecified osteoporosis type, unspecified pathological fracture presence (Primary Dx) Social History Tobacco Use Types Packs/Day Years [...] 10:15 AM EST Office [place] [address] Namita Bansal MD [facility] DR [place] [address] documented as of this encounter Goals Goal Patient Goal Type Associated Problems Recent Progress Patient-Stated? Author Exercise 3x per week (30 min per time) Exercise No Keila Arango, CHRISTIANO documented as of this encounter Visit Diagnoses Diagnosis Osteoporosis, unspecified osteoporosis type, unspecified pathological fracture presence- Primary documented in this encounter Care Teams Roll Up Helper Relationship Specialty Start Date End Date Mitchell Yap MD [address] [place] [address] PCP - General 05/19/10 07/17/23 documented as of this encounter
--- OUTSIDE RECORDS SUMMARY | 2024-04-18 13:13 | XMS_ITS | Encounter Summary ---
[place] [address] Care Team Providers Care Carpet Floor Layer Apprentice Name Role Phone Mitchell Yap MD Primary Care Provider [phone] Reason for Visit * Reason Onset Date Comments Pump/sensor 10/05/2022 Encounter Details Date Type Department Care Team (Late st Contact Info) Description 10/05/2022 Telephone [place] [address] Namita Cordero Pump/sensor Social History Tobacco Use [...] * Telephone Encounter - Namita Cordero - 10/22/2022 9:46 AM EDT Faxed 10/14 * Telephone Encounter - Namita Cordero - 10/11/2022 9:48 AM EDT Prescription from [employer]. Filled out. Dr. Victor will sign. Secretaries will fax. * Telephone Encounter - Namita Cordero - 10/05/2022 7:41 AM EDT Received prescription from [employer] Will complete as soon as possible documented in this encounter Plan of Treatment Upcoming Encounters Date Type Department Care Team (Late st Contact Info) Description 06/05/2024 10:15 AM EST Office Visit [place] [address] Namita Bansal MD [facility] [place] [address] documented as of this encounter Goals Goal Patient Goal Type Associated Problems Recent Progress Patient-Stated? Author Exercise 3x per week (30 min per time) Exercise No Keila Arango CDE documented as of this encounter Visit Diagnoses Not on filedocumented in this encounter Care Teams Carpet Floor Layer Apprentice Relationship Specialty Start Date End Date Mitchell Yap MD [address] [place] [address] PCP - General 05/19/10 07/17/23 documented as of this encounter
--- OUTSIDE RECORDS SUMMARY | 2024-04-18 13:13 | XMS_ITS | Encounter Summary ---
Author Organization [facility] [place] [address] Care Team Providers Care Field Interviewer Name Role Phone Mitchell Yap MD Primary Care Provider [phone] Encounter Details Date Type Department Care Team (Latest Contact Info) Description 12/07/2022 Travel Social History Tobacco Use Types Packs/Day [...] 10:15 AM EST Office [place] [address] Namita Bansal MD [facility] [place] [address] documented as of this encounter Goals Goal Patient Goal Type Associated Problems Recent Progress Patient-Stated? Author Exercise 3x per week (30 min per time) Exercise No Keila Arango, CDE documented as of this encounter Visit Diagnoses Not on filedocumented in this encounter Care Teams Field Interviewer Relationship Specialty Start Date End Date Mitchell Yap MD [address] [place] [address] PCP - General 05/19/10 07/17/23 documented as of this encounter
--- OUTSIDE RECORDS SUMMARY | 2024-04-18 13:13 | XMS_ITS | Encounter Summary ---
Author Organization [facility] [address] Care Team Providers Care Middleware Solutions Architect Name Role Phone Mitchell Yap MD Primary Care Provider [phone] Encounter Details Date Type Department Care Team (Latest Contact Info) Description 09/26/2022 Travel Social History Tobacco Use Types Packs/Day [...] 10:15 AM EST Office [place] [address] Namita Bansal MD [facility] [place] [address] documented as of this encounter Goals Goal Patient Goal Type Associated Problems Recent Progress Patient-Stated? Author Exercise 3x per week (30 min per time) Exercise No Keila Arango, CDE documented as of this encounter Visit Diagnoses Not on filedocumented in this encounter Care Teams Middleware Solutions Architect Relationship Specialty Start Date End Date Mitchell Yap MD [address] [place] [address] PCP - General 05/19/10 07/17/23 documented as of this encounter
--- OUTSIDE RECORDS SUMMARY | 2024-04-18 13:13 | XMS_ITS | Encounter Summary ---
[place] [address] Care Team Providers Care Drapery Head Former Name Role Phone Mitchell Yap MD Primary Care Provider [phone] Encounter Details Date Type Department Care Team (Late st Contact Info) Description 08/17/2022 Tele[place] [address] Balbina Guan CMA Social History Tobacco Use [...] Telephone Encounter - Balbina Guan CMA - 08/17/2022 12:20 PM EST Received Certificate of medical necessity for insulin pump. Waiting on the dr to sign and then willfax to [employer]. Faxed signed copy of the Certificate of Medical Necessity to [employer], received conformation that fax was sent on 08/17/22 documented in this encounter Plan of Treatment Upcoming Encounters Date Type Department Care Team (Late st Contact Info) Description 06/05/2024 10:15 AM EST Office [place] [address] Namita Bansal MD [facility] DR [place] [address] documented as of this encounter Goals Goal Patient Goal Type Associated Problems Recent Progress Patient-Stated? Author Exercise 3x per week (30 min per time) Exercise No Keila Arango CDE documented as of this encounter Visit Diagnoses Not on filedocumented in this encounter Care Teams Drapery Head Former Relationship Specialty Start Date End Date Mitchell Yap MD [address] [place] [address] PCP - General 05/19/10 07/17/23 documented as of this encounter
--- OUTSIDE RECORDS SUMMARY | 2024-04-18 13:13 | XMS_ITS | Encounter Summary ---
Author Organization Formerly [facility] [place] [address] Care Team Providers Care Administration Intern Name Role Phone Mitchell Yap MD Primary Care Provider [phone] Reason for Visit * Reason Comments Prior Authorization [employer] called and Recl ast is their preferred no PA RequiredFilled out reclast form, gave to provider to sign. Will fax once signed. Encounter Details Date Type Department Care Team (Late st Contact Info) Description 12/13/2022 Telephone [place] [address] Geoffrey Soler MD [facility] [place] [address] Prior Authorization ([employer] called and /Reclast is their preferred no PA Required/Filled out reclast form, gave to provider to sign. Will fax once signed. ///) Social History Tobacco Use Types Packs/Day Years [...] 10:15 AM EST Office Visit [place] [address] Namita Bansal MD [facility] [place] [address] documented as of this encounter Goals Goal Patient Goal Type Associated Problems Recent Progress Patient-Stated? Author Exercise 3x per week (30 min per time) Exercise No Keila Arango, VELMAE documented as of this encounter Visit Diagnoses Not on filedocumented in this encounter Care Teams Administration Intern Relationship Specialty Start Date End Date Mitchell Yap MD [address] [place] [address] PCP - General 05/19/10 07/17/23 documented as of this encounter
--- OUTSIDE RECORDS SUMMARY | 2024-04-18 13:13 | XMS_ITS | Encounter Summary ---
[place] [address] Care Team Providers Care Paleology Professor Name Role Phone Mitchell Yap MD Primary Care Provider [phone] Reason for Visit * Reason Onset Date Comments Prior Authorization 11/30/2021 Encounter Details Date Type Department Care Team (Late st Contact Info) Description 11/30/2021 Telephone [place] [phone] Namita Cordero Prior Authorization Social History Tobacco [...] * Telephone Encounter - Namita Cordero - 11/30/2021 1:22 PM EDT Medication Prior Authorization Andres Medication name/dose/directions: Contour Next Test Strips - test 8x daily Rationale for request: Type I DM Health plan: [place] Medicaid (CMM) Authorizing truck sales representative name: Nedra Sent to health plan on: 11/30/21 Health plan decision: Approved Quantity approved: 200 per 25 days Authorization number: [id number] Start date: 11/30/21 End date: 11/30/22 * Telephone Encounter - Namita Cordero - 11/30/2021 8:04 AM EDT Images from the original note were not included. Received PA for contour next Will complete as soon as possible documented in this encounter Plan of Treatment Upcoming Encounters Date Type Department Care Team (Late st Contact Info) Description 06/05/2024 10:15 AM EST Office [place] [address] Namita Bansal MD [facility] [place] [address] documented as of this encounter Goals Goal Patient Goal Type Associated Problems Recent Progress Patient-Stated? Author Exercise 3x per week (30 min per time) Exercise No Keila Arango, CHRISTIANO documented as of this encounter Visit Diagnoses Not on filedocumented in this encounter Care Teams Paleology Professor Relationship Specialty Start Date End Date Mitchell Yap MD [address] [place] [address] PCP - General 05/19/10 07/17/23 documented as of this encounter
--- OUTSIDE RECORDS SUMMARY | 2024-04-18 13:13 | XMS_ITS | Encounter Summary ---
Author Organization [facility] [place] [address] Care Team Providers Care Gear Machinist Name Role Phone Mitchell Yap MD Primary Care Provider [phone] Encounter Details Date Type Department Care Team (Late st Contact Info) Description 06/25/2022 Ancillary Procedure Radiology Library at [facility] [place] [address] Mitchell Yap MD [address] [place] [address] Social History Tobacco Use Types Packs/Day Years [...] 10:15 AM EST Office Visit Endocrinology at [facility] [place] [phone] Namita Bansal MD [facility] [place] [address] documented as of this encounter Goals Goal Patient Goal Type Associated Problems Recent Progress Patient-Stated? Author Exercise 3x per week (30 min per time) Exercise No Keila Arango CDE documented as of this encounter Procedures Procedure Name Priority Date/Time Associated Diagnosis Comments FILM LIBRARY- STORAGE ONLY DXA IMAGES Routine 06/25/2022 12:00 AM EST documented in this encounter Results * Film Library- Storage Only DXA Images (06/25/2022 12:00 AM EST) Narrative [facility] - 06/29/2022 8:42 AM EST This exam is auto-finalizing. It's purpose is for storage only. Mitchell Yap MD IMG FILM LIBRARY ORD ERABLES Performing Organization Address City/State/[facility] Co de Phone Number [place], [place] documented in this encounter Visit Diagnoses Not on filedocumented in this encounter Care Teams Gear Machinist Relationship Specialty Start Date End Date Mitchell Yap MD [address] [place] [address] PCP - General 05/19/10 07/17/23 documented as of this encounter
--- OUTSIDE RECORDS SUMMARY | 2024-04-18 13:13 | XMS_ITS | Encounter Summary ---
Author Organization [facility] [place] [address] Care Team Providers Care District Sales Representative Name Role Phone Mitchell Yap MD Primary Care Provider [phone] Encounter Details Date Type Department Care Team (Late st Contact Info) Description 12/09/2022 Ancillary Procedure Radiology Library [place] [address] Mitchell Yap MD [address] [place] [address] Social History Tobacco Use Types Packs/Day Years [...] 10:15 AM EST Office Visit Endocrinology at [facility] [place] [address] Namita Bansal MD [facility] [place] [address] documented as of this encounter Goals Goal Patient Goal Type Associated Problems Recent Progress Patient-Stated? Author Exercise 3x per week (30 min per time) Exercise No Keila Arango CDE documented as of this encounter Procedures Procedure Name Priority Date/Time Associated Diagnosis Comments FILM LIBRARY STORAGE ONLY DX SPINE Routine 12/09/2022 12:00 AM EDT documented in this encounter Results * Film Library- Storage Only DX Spine (12/09/2022 12:00 AM EDT) Narrative [facility] - 12/10/2022 9:27 AM EDT This exam is auto-finalizing. It's purpose is for storage only. Mitchell Yap MD IMG FILM LIBRARY ORD ERABLES Performing Organization Address City/State/[facility] Co de Phone Number [place], [place] documented in this encounter Visit Diagnoses Not on filedocumented in this encounter Care Teams District Sales Representative Relationship Specialty Start Date End Date Mitchell Yap MD [address] [place] [address] PCP - General 05/19/10 07/17/23 documented as of this encounter
--- OUTSIDE RECORDS SUMMARY | 2024-04-18 13:13 | XMS_ITS | Encounter Summary ---
[place] [address] Care Team Providers Care Magazine Publisher Name Role Phone Mitchell Yap MD Primary Care Provider [phone] Reason for Visit * Reason Comments Medication Refill Encounter Details Date Type Department Care Team (Late st Contact Info) Description 10/05/2022 Refill [place] [address] Krishan Victor, [facility] [place] [address] Type 1 diabetes mellitus without complication, with intermediate designer current use of insulin pump Social History [...] 10:15 AM EST Office [place] [address] Namita Bansal MD [facility] [place] [address] documented as of this encounter Goals Goal Patient Goal Type Associated Problems Recent Progress Patient-Stated? Author Exercise 3x per week (30 min per time) Exercise No Keila Arango, CHRISTIANO documented as of this encounter Visit Diagnoses Diagnosis Type 1 diabetes mellitus without complication, with halfway current use of insulin pump documented in this encounter Care Teams Magazine Publisher Relationship Specialty Start Date End Date Mitchell Yap MD [address] [place] [address] PCP - General 05/19/10 07/17/23 documented as of this encounter
--- OUTSIDE RECORDS SUMMARY | 2024-04-18 13:13 | XMS_ITS | Encounter Summary ---
[place] [address] Care Team Providers Care Curriculum Development Manager Name Role Phone Mitchell Yap MD Primary Care Provider [phone] Encounter Details Date Type Department Care Team (Late st Contact Info) Description 08/02/2022 8:30 AM EST Office Visit [place] [address] Krishan Vilchis, [facility] [place] [address] Diabetes mellitus type 1, uncomplicated; Osteoporosis, unspecified osteoporosis type, unspecified pathological fracture [...] Sign Reading Time Taken Comments Blood Pressure 149/63 08/02/2022 8:04 AM EST Pulse 80 08/02/2022 8:04 AM EST Temperature 37.6 ??C (99.6 ??F) 08/02/2022 8:04 AM ES T Respiratory Rate 16 08/02/2022 8:04 AM EST Oxygen Saturation 99% 08/02/2022 8:04 AM EST Inhaled Oxygen Concentration - - Weight - - Height 152.4 cm (5') 08/02/2022 8:04 AM EST Body Mass Index - - documented in this encounter Progress Notes * Krishan Vilchis, DO - 08/02/2022 8:30 AM EST Images from the original note were not included. Ms. Ebonie Sol is an 67 y.o. female who presents for ongoing care of T1DM. Interval history: Patient has generally been well. Review of her Medtronic print out reveals 60% time in range with 19 percent high and 13% low. Similar to her previous visit she feels that she gets multiple boluses when she sees a high glucose which then results in alone. She corrects lows with a granola bar but feels that this may cause overcorrection. She will try going back to peanut butter as she has done in the past better success with. She has had some trouble getting supplies. She will be due for a new pump this year though thinks that her insurance may not cover a new Medtronic. We spoke a bit about other brands that are available if that is the case or if she prefers that. She has a history of osteoporosis. She tells me she thinks she has had 3 doses of Reclast. However with the last 2 she had a couple of days of very unpleasant side effects so she does not want to take more Reclast if can be avoided. She tells me she has had a spinal compression fracture in the past. She has recently increased her calcium intake and is exercising more on the treadmill. Plan from previous visit: 67-year-old woman presents for follow-up of well-controlled type 1 diabetes mellitus. Hemoglobin A1c remains 7.4%. She does have lows. By her Medtronic sensor she is low 10% of the time. She feels this is due to overcorrection when she is high. She does not use auto mode because it wakes her at night. She is going to try to avoid what she feels is the excessive correction which will hopefully help with her hypoglycemia. Otherwise no changes necessary today. ?? We did discuss with her that diabetes places her at increased fracture risk. She tells that she hasbeen taking Reclast though she does not take any calcium supplements. We discussed that we recommend she try to take Tums. I will send her a order for DEXA scan to be done close to her house [facility]. She knows she can make a visit to follow-up regarding these results and any further plan to treat herbone density. Patient Active Problem List Diagnosis ??? s/p [...] at age 7 Current Outpatient Medications: ??? ProAir HFA 90 mcg/actuation HFA Aerosol Inhaler, INHALE 1-2 PUFFS BY MOUTH EVERY 4 HOURS NEEDED, Disp: , Rfl: ??? aspirin EC 81 mg Tablet, Delayed Release (E.C.), Daily., Disp: , Rfl: ??? blood sugar diagnostic strips (Contour Next Test Strips) Strip, TEST 8 TIMES A DAY, Disp: 700 strip, Rfl: 2 ??? insulin lispro (humaLOG) 100 unit/mL Solution, INJECT 40 TO 50 UNITS UNDER THE SKIN CONTINUOUS DAILY VIA PUMP, Disp: 50 mL, Rfl: 1 ??? cholecalciferol (Vitamin D3) 1,000 unit Tablet, Take by mouth daily., Disp: , Rfl: ??? atorvastatin (Lipitor) 20 mg Tablet, TAKE ONE TABLET BY MOUTH AT BEDTIME, Disp: , Rfl: ??? glucagon, Human Recombinant, 1 mg Recon Soln, as needed., Disp: , Rfl: ??? pantoprazole EC (Protonix) 40 mg Tablet, Delayed Release (E.C.), TAKE ONE TABLET BY MOUTH EVERYDAY, Disp: , Rfl: ??? MAGNESIUM ORAL, Take by mouth daily., Disp: , Rfl: ??? acetaminophen (TYLENOL) 500 mg Tablet, Take 1,000 mg by mouth every 6 hours as needed for Pain., Disp: , Rfl: ??? Diabetic Supplies, [facility] [facility], Disp: 100 each, Rfl: 12 ??? Diabetic Supplies, [facility]. [facility] PWO faxed to [facility], Disp: 100 each, Rfl: 12 ??? Diabetic Supplies, [place]iscellan. [facility], [place] faxed to [facility] for insulin pump supplies, Disp: 1 each, Rfl: 3 ??? multivitamin with minerals (THERA-M) 9-0.4 mg Tablet, Take 1 tablet by mouth daily., Disp: , Rfl: ??? lisinopril (PRINIVIL;ZESTRIL) 20 mg Tablet, Take 1 tablet by mouth daily., Disp: 30 tablet, Rfl: ??? cyclobenzaprine (Flexeril) 5 mg Tablet, TAKE 1 TO 2 TABLETS BY MOUTH TWO TIMES A DAY NEEDED,Disp: , Rfl: ??? zoledronic mwta-mybjqxth-gsbqf (zoledronic Acid) 5 mg/100 mL IV solution, [...] for the past 24 hrs: Temp Pulse Resp BP SpO2 08/02/22 0804 37.6 ??C (99.6 ??F) 80 16 149/63 99 % Wt & BMI By Encounter Date Flowsheet Row Office Visit from 08/02/2022 in Endocrinology at [facility] Office Visit from 04/26/2022 in Endocrinology at [facility] Weight -- [Patient declined] 1 08/02/2022 0804 -- [Patient declined to be weighed.] 1 04/26/2022 0925 General: no acute distress, pleasant, sitting comfortably Respiratory: symmetrical chest expansion, breathing comfortably on room air Musculoskeletal: Moving all 4 extremities normally; normal female musculature Feet: no wounds Psychological: alert/oriented to person, place, time; normal affect; memory intact; normal judgement/insight Radiology Studies: Laboratory Data: Will update labs today. Assessment / Plan: 67-year-old female presents for follow-up of type 1 diabetes. We also discussed osteoporosis today. For type 1 diabetes her time in range 60%. However she has 13% low. We again discussed, similar to last time, to avoid multiple boluses for overcorrection after she has a high. I spoke to her about instead considering changing her carbohydrate ratio by lowering to 13 throughout the day and possiblydown to 12 so that she can avoid having the high glucose in the first place that prompts her overcorrection. She is going to try this. Otherwise, her diabetes control has been very good. We spoke with osteoporosis today as well. She has a T score -3.7 in her spine. She tells me she hashad a spinal compression fracture. This means she has severe osteoporosis. It also appears that nahedhas had a decline in bone density despite Reclast which is most likely reflective of poor calcium intake. She has recently increased her calcium intake. She notes that in the past she had very unpleasant side effects for a few days following the last 2 weekly injections and prefers to avoid furtherrequest if possible. I advised her that based on the severity of her osteoporosis and anabolic agent such as teriparatide or abaloparatide would be recommended however they should then be followed with a bisphosphonate. We discussed general rare side effects of bisphosphonates such as osteonecrosisof the jaw and atypical femur fracture extremities to mitigate this risk. Also discussed that it would be reasonable option for her to switch to once weekly alendronate to see if she can take this without side effects that she does have a history of GERD which may become an issue. She is going to think about it and let me know what she would like to do. Her last reclast was June 2021 she thinks. Past she has had a mildly elevated calcium denies any PTH values. If PTH is high she would likely benefit from pursuing parathyroidectomy in light of her advanced osteoporosis. We should also assess 24-hour urine calcium as a next step. Will get labs today. I will reach out to her after all labs have resulted. Discussed with attending physician, Dr. Jimenez. Krishan Vilchis DO Endocrinology Fellow * Mimi Jimenez MD - 08/02/2022 8:30 AM EST Patient seen and evaluated by me and Dr. Vilchis. I agree with his above assessment and plan. Mimi Jimenez MD Professor documented in this encounter Miscellaneous Notes * Addendum Note - Krishan Vilchis DO - 08/02/2022 8:30 AM ESTAddended by: KRISHAN VILCHIS on: 08/02/2022 03:03 PM Modules accepted: Orders documented in this encounter Plan of Treatment Upcoming Encounters Date Type Department Care Team (Late st Contact Info) Description 06/05/2024 10:15 AM EST Office Visit [place] [address] Namita Bansal MD [facility] [place] [address] documented as of this encounter Goals Goal Patient Goal Type Associated Problems Recent Progress Patient-Stated? Author Exercise 3x per week (30 min per time) Exercise No Keila Arango CDE documented as of this encounter Visit Diagnoses Diagnosis Diabetes mellitus type 1, uncomplicated Type I (juvenile type) diabetes mellitus without mention of complication, not stated as uncontrolled Osteoporosis, unspecified osteoporosis type, unspecified pathological fracture presence documented in this encounter Care Teams Curriculum Development Manager Relationship Specialty Start Date End Date Mitchell Yap MD [address] [place] [address] PCP - General 05/19/10 07/17/23 documented as of this encounter
--- OUTSIDE RECORDS SUMMARY | 2024-04-18 13:13 | XMS_ITS | Encounter Summary ---
[place] [address] Care Team Providers Care Health Coach Name Role Phone Mitchell Yap MD Primary Care Provider [phone] Encounter Details Date Type Department Care Team (Late st Contact Info) Description 09/27/2022 Telephone [place] [address] Krishan Victor, [facility] DR [place] [address] Social History Tobacco Use Types Packs/Day Years [...] encounter Miscellaneous Notes * Telephone Encounter - Krishan Victor DO - 09/27/2022 11:09 AM EDT Called patient this morning. Left voicemail letting her know she can call me back. Krishan Victor DO Endocrinology Fellow documented in this encounter Plan of Treatment Upcoming Encounters Date Type Department Care Team (Late st Contact Info) Description 06/05/2024 10:15 AM EST Office [place] [address] Namita Bansal MD [facility] DR [place]CR[place] [address] documented as of this encounter Goals Goal Patient Goal Type Associated Problems Recent Progress Patient-Stated? Author Exercise 3x per week (30 min per time) Exercise No Keila Arango, CHRISTIANO documented as of this encounter Visit Diagnoses Not on filedocumented in this encounter Care Teams Health Coach Relationship Specialty Start Date End Date Mitchell Yap MD [address] [place] [address] PCP - General 05/19/10 07/17/23 documented as of this encounter
--- OUTSIDE RECORDS SUMMARY | 2024-04-18 13:13 | XMS_ITS | Encounter Summary ---
Author Organization [facility] [address] Care Team Providers Care Medical Equipment Repairer Name Role Phone Mitchell Yap MD Primary Care Provider [phone] Encounter Details Date Type Department Care Team (Latest Contact Info) Description 02/15/2023 Travel Social History Tobacco Use Types Packs/Day [...] 10:15 AM EST Office [place] [address] Namita Bansal MD [facility] ENDOCRINOLOGY [place] [address] documented as of this encounter Goals Goal Patient Goal Type Associated Problems Recent Progress Patient-Stated? Author Exercise 3x per week (30 min per time) Exercise No Keila Arango, CDE documented as of this encounter Visit Diagnoses Not on filedocumented in this encounter Care Teams Medical Equipment Repairer Relationship Specialty Start Date End Date Mitchell Yap MD [address] [place] [address] PCP - General 05/19/10 07/17/23 documented as of this encounter
--- OUTSIDE RECORDS SUMMARY | 2024-04-18 13:13 | XMS_ITS | Encounter Summary ---
[place] [address] Care Team Providers Care Grants Administrator Name Role Phone Mitchell Yap MD Primary Care Provider [phone] Reason for Visit * Reason Onset Date Comments Prior Authorization 07/12/2022 Encounter Details Date Type Department Care Team (Late st Contact Info) Description 07/12/2022 Telephone [place] [address] Namita Cordero Prior Authorization Social History Tobacco [...] * Telephone Encounter - Namita Cordero - 07/14/2022 12:06 PM EST Patient is on insulin pump * Telephone Encounter - Namita Cordero - 07/14/2022 12:05 PM EST Medication Prior Authorization Andres Medication name/dose/directions: Contour Next Test Strips - Test 8x daily Rationale for request: Type I DM (E10.65) Health plan: [employer] ([facility]) [place]: [id number] Authorizing district representative name: Nedra Sent to health plan on: 07/14/22 PA Outcome: PA Approval Quantity approved: Authorization number: [id number] Start date: End date: 06/26/23 * Telephone Encounter - Namita Cordero - 07/12/2022 8:00 AM EST Images from the original note were not included. Received PA for contour next test strips Will complete as soon as possible documented in this encounter Plan of Treatment Upcoming Encounters Date Type Department Care Team (Late st Contact Info) Description 06/05/2024 10:15 AM EST Office [place] [address] Namita Bansal MD [facility] DR [place] [address] documented as of this encounter Goals Goal Patient Goal Type Associated Problems Recent Progress Patient-Stated? Author Exercise 3x per week (30 min per time) Exercise No Keila Arango, CHRISTIANO documented as of this encounter Visit Diagnoses Not on filedocumented in this encounter Care Teams Grants Administrator Relationship Specialty Start Date End Date Mitchell Yap MD [address] [place] [address] PCP - General 05/19/10 07/17/23 documented as of this encounter
--- OUTSIDE RECORDS SUMMARY | 2024-04-18 13:13 | XMS_ITS | Encounter Summary ---
Author Organization [facility] [place] [address] Care Team Providers Care Manager Aerospace Name Role Phone Mitchell Yap MD Primary Care Provider [phone] Encounter Details Date Type Department Care Team (Latest Contact Info) Description 12/08/2022 Travel Social History Tobacco Use Types Packs/Day [...] EST Office [place] [address] Namita Bansal MD [facility] [place] [address] documented as of this encounter Goals Goal Patient Goal Type Associated Problems Recent Progress Patient-Stated? Author Exercise 3x per week (30 min per time) Exercise No Keila Arango, CDE documented as of this encounter Visit Diagnoses Not on filedocumented in this encounter Care Teams Manager Aerospace Relationship Specialty Start Date End Date Mitchell Yap MD [address] [place] [address] PCP - General 05/19/10 07/17/23 documented as of this encounter
--- OUTSIDE RECORDS SUMMARY | 2024-04-18 13:13 | XMS_ITS | Encounter Summary ---
[place] [address] Care Team Providers Care Strip Polisher Name Role Phone Mitchell Yap MD Primary Care Provider [phone] Reason for Visit * Reason Onset Date Comments Pump/sensor 11/11/2022 Encounter Details Date Type Department Care Team (Late st Contact Info) Description 11/11/2022 Telephone [place] [phone] Namita Cordero Pump/sensor Social History Tobacco Use [...] * Telephone Encounter - Dominga Hu - 11/17/2022 2:37 PM EDT Prescription from [employer]. Filled out. Dr. Victor will sign. Secretaries faxed and confirmed to [phone] * Telephone Encounter - Namita Cordero - 11/15/2022 11:40 AM EDT Prescription from [employer]. Filled out. Dr. Victor will sign. Secretaries will fax. * Telephone Encounter - Namita Cordero - 11/11/2022 9:25 AM EDT Received??prescription??from [employer]?? Will complete as soon as possible documented in this encounter Plan of Treatment Upcoming Encounters Date Type Department Care Team (Late st Contact Info) Description 06/05/2024 10:15 AM EST Office [place] [address] Namita Bansal MD [facility] [place] [address] documented as of this encounter Goals Goal Patient Goal Type Associated Problems Recent Progress Patient-Stated? Author Exercise 3x per week (30 min per time) Exercise No Keila Arango, CHRISTIANO documented as of this encounter Visit Diagnoses Not on filedocumented in this encounter Care Teams Strip Polisher Relationship Specialty Start Date End Date Mitchell Yap MD [address] [place] [address] PCP - General 05/19/10 07/17/23 documented as of this encounter
--- OUTSIDE RECORDS SUMMARY | 2024-04-18 13:13 | XMS_ITS | Encounter Summary ---
[place] [address] Care Team Providers Care Dispatcher Automobile Rental Name Role Phone Mitchell Yap MD Primary Care Provider [phone] Reason for Visit * Reason Comments Medication Refill Encounter Details Date Type Department Care Team (Late st Contact Info) Description 02/26/2023 Refill [place] [phone] Norris Campos MD [facility] [place] [address] Social History Tobacco Use Types Packs/Day Years [...] 10:15 AM EST Office [place] [phone] Namita Bansal MD [facility] [address] [place] [address] documented as of this encounter Goals Goal Patient Goal Type Associated Problems Recent Progress Patient-Stated? Author Exercise 3x per week (30 min per time) Exercise No Keila Arango, CHRISTIANO documented as of this encounter Visit Diagnoses Not on filedocumented in this encounter Care Teams Dispatcher Automobile Rental Relationship Specialty Start Date End Date Mitchell Yap MD [address] [place] [address] PCP - General 05/19/10 07/17/23 documented as of this encounter
--- OUTSIDE RECORDS SUMMARY | 2024-04-18 13:13 | XMS_ITS | Encounter Summary ---
[place] [address] Care Team Providers Care Purchasing Internship Name Role Phone Mitchell Yap MD Primary Care Provider [phone] Encounter Details Date Type Department Care Team (Late st Contact Info) Description 12/13/2022 Telephone [place] [phone] Halima Finney RN Social History Tobacco Use [...] Telephone Encounter - Halima Finney RN - 12/13/2022 3:13 PM EDT Filled out reclast form, gave to provider to sign. Will fax once signed. documented in this encounter Plan of Treatment Upcoming Encounters Date Type Department Care Team (Late st Contact Info) Description 06/05/2024 10:15 AM EST Office Visit [place] [address] Namita Bansal MD [facility] [place] [address] documented as of this encounter Goals Goal Patient Goal Type Associated Problems Recent Progress Patient-Stated? Author Exercise 3x per week (30 min per time) Exercise No Keila Arango, CDE documented as of this encounter Visit Diagnoses Not on filedocumented in this encounter Care Teams Purchasing Internship Relationship Specialty Start Date End Date Mitchell Yap MD [address] [place] [address] PCP - General 05/19/10 07/17/23 documented as of this encounter
--- OUTSIDE RECORDS SUMMARY | 2024-04-18 13:13 | XMS_ITS | Encounter Summary ---
[place] [address] Care Team Providers Care Personal Attendant Name Role Phone Mitchell Yap MD Primary Care Provider [phone] Encounter Details Date Type Department Care Team (Late st Contact Info) Description 12/01/2021 [place] [address] Francis Gifford RN Social History Tobacco Use Types Packs/Day [...] encounter Miscellaneous Notes * Telephone Encounter - Francis Gifford RN - 12/01/2021 7:53 AM EDT Patient called asking us to do the PA for her test trips because she is running out and was told she needs a PA. Upon looking in her chart I see that the PA for her test trips was already done and approved as of yesterday. Messaged pt back to let her know. documented in this encounter Plan of Treatment Upcoming Encounters Date Type Department Care Team (Late st Contact Info) Description 06/05/2024 10:15 AM EST Office [place] [address] Namita Bansal MD [facility] [place] [address] documented as of this encounter Goals Goal Patient Goal Type Associated Problems Recent Progress Patient-Stated? Author Exercise 3x per week (30 min per time) Exercise No Keila Arango, VELMAE documented as of this encounter Visit Diagnoses Not on filedocumented in this encounter Care Teams Personal Attendant Relationship Specialty Start Date End Date Mitchell Yap MD [address] [place] [address] PCP - General 05/19/10 07/17/23 documented as of this encounter
--- OUTSIDE RECORDS SUMMARY | 2024-04-18 13:13 | XMS_ITS | Encounter Summary ---
[place] [address] Care Team Providers Care Lean Facilitator Name Role Phone Mitchell Yap MD Primary Care Provider [phone] Encounter Details Date Type Department Care Team (Latest Contact Info) Description 04/26/2022 9:30 AM EDT Office Visit [place] [address] Krishan Victor, [facility] [place] [address] Post-menopause; Type 1 diabetes mellitus with hyperglycemia Social [...] Sign Reading Time Taken Comments Blood Pressure 123/57 04/26/2022 9:25 AM EDT Pulse 68 04/26/2022 9:25 AM EDT Temperature 36.7 ??C (98.1 ??F) 04/26/2022 9:25 AM ED T Respiratory Rate 20 04/26/2022 9:25 AM EDT Oxygen Saturation 100% 04/26/2022 9:25 AM EDT Inhaled Oxygen Concentration - - Weight - - Height 151.1 cm (4' 11.5) 04/26/2022 9:25 AM ED T Body Mass Index - - documented in this encounter Patient Instructions * Patient Instructions* Krishan Victor DO - 04/26/2022 9:30 AM EDT Recommend taking Tums 1000mg twice daily Recommend having a DXA scan to check your bone density If you would like to see us regarding your bone density please schedule a follow up visit for this documented in this encounter Progress Notes * Krishan Victor DO - 04/26/2022 9:30 AM EDT Images from the original note were not included. Ms. Ebonie Sol is an 67 y.o. female who presents for ongoing care of T1DM. Interval history: Overall she has been well. She does have some hypoglycemia though she feels she has identified the cause as giving extra correction when she is hyperglycemic. She has numbness/tingling in hands and feet. She has some cervical spinal stenosis so it is unclear if this is diabetic neuropathy in her hands are related to that. Her has been nonweightbearing for nearly a year following an injurybut will hopefully soon be able to bear weight again. She is not using auto mode because it wakes her during the night. By her [employer] sensor she is in range 71% of the time, low 10% of the time She continues on a [employer] pump with the following settings: 0230-8393 0.5u/hr 8214-1265 0.525u/hr 4285-8384 0.550u/hr 1442-9205 0.450u/hr 3338-9006 0.500u/hr 3653-1205 0.600u/hr 2602-9808 0.550u/hr 1587-2922 0.450u/hr Carb ratio 7089-5727 14 3608-1485 13 1281-9450 14 CF 55, target 110-140 Patient Active Problem List Diagnosis ??? s/p [...] at age 7 Current Outpatient Medications: ??? insulin lispro (humaLOG) 100 unit/mL Solution, [...] MOUTH EVERYDAY, Disp: , Rfl: ??? zoledronic qkon-bgrcypla-nnils (zoledronic Acid) 5 mg/100 mL IV solution, [...] Pain., Disp: ,Rfl: ??? Diabetic Supplies, [facility]. [facility], CMN form faxed to [employer], Disp: 100 each, Rfl: 12 ??? Diabetic Supplies, Miscellan. [facility], PWO faxed to [facility], Disp: 100 each, Rfl: 12 ??? ADVAIR DISKUS 100-50 mcg/dose Disk with Device, Inhale 1 puff into the lungs daily., Disp: , Rfl: ??? Diabetic Supplies, Miscellan. [facility], Form faxed to [facility] for insulin pump supplies, Disp: 1 each, [...] 24 hrs: Temp Pulse Resp BP SpO2 04/26/22 0925 36.7 ??C (98.1 ??F) 68 20 123/57 100 % Wt & BMI By Encounter Date Flowsheet Row Office Visit from 12/04/2021 in Endocrinology at [facility] Office Visit from 09/23/2021 in Endocrinology at [facility] Weight 54.4 kg (120 lb) 1 12/04/2021 0916 56.7 kg (125 lb) 1 09/23/2021 1000 BMI 23.63 1 12/04/2021 0916 24.61 1 09/23/2021 1000 Physical Exam Constitutional: General: She is not in acute distress. Appearance: She is not ill-appearing or toxic-appearing. Neurological: Mental Status: She is alert. Laboratory Data: Latest Reference Range & Units 09/23/21 09:34 Creatinine 0.70 - 1.20 mg/dL 0.72 Estimated GFR >=60 mL/min/1.73 m?? 88 Hemoglobin A1C 4.3 - 5.6 % 7.4 (H) Est Avg Gluc mg/dL 165 LDL Chol Direct mg/dL 59 (H): Data is abnormally high Assessment / Plan: 67-year-old woman presents for follow-up of well-controlled [...] her hypoglycemia. Otherwise no changes necessary today. We did discuss with her that diabetes [...] any further plan to treat herbone density. Discussed with attending physician, Dr. Jimenez. Krishan Victor DO Endocrinology Fellow * Mimi Jimenez MD - 04/26/2022 9:30 AM EDT Patient seen and evaluated by me and Dr. Victor. I agree with his above assessment and plan. Mimi Jimenez MD Professor documented in this encounter Plan of Treatment Upcoming Encounters Date Type Department Care Team (Late st Contact Info) Description 06/05/2024 10:15 AM EST Office Visit [place] [address] Namita Bansal MD [facility] [place] [address] Scheduled Orders Name Type Priority Associated Diagnoses Orde r Schedule Basic Metabolic Panel (non-fasting) Lab Routine Type 1 diabetes mellitus with hyperglycemia Expected: 04/26/2022, Expires: 10/26/2022 Hemoglobin A1c Lab Routine Type 1 diabetes mellitus with hyperglycemia Expected: 04/26/2022, Expires: 10/26/2022 U Albumin/Cre Ratio Lab Routine Type 1 diabetes mellitus with hyperglycemia Expected: 04/26/2022 (Approximate), Expires: 10/26/2022 documented as of this encounter Goals Goal Patient Goal Type Associated Problems Recent Progress Patient-Stated? Author Exercise 3x per week (30 min per time) Exercise Keila Espinoza CDE documented as of this encounter Results * Vitamin D, 25-Hydroxy (08/02/2022 7:42 AM EST) Vitamin D Total 25 OH 53 21 - 100 ng/mL [facility] Vit D Interp Sufficient [facility] Blood 08/02/2022 7:42 AM EST 08/02/2022 7:51 AM EST Narrative Resulting Agency Comment Spec In Lab Mimi Jimenez MD CHEMISTRY ORDERABLES Performing Organization Address City/[facility]/ZIP Co de Phone Number [facility] [place] [address] * Albumin Level (08/02/2022 7:42 AM EST) Albumin 4.3 3.2 - 5.2 g/dL [facility] Blood 08/02/2022 7:42 AM EST 08/02/2022 7:51 AM EST Narrative Resulting Agency Comment Spec In Lab Mimi Jimenez MD CHEMISTRY ORDERABLES Performing Organization Address City/[facility]/ZIP Co de Phone Number [facility] [place] [address] documented in this encounter Visit Diagnoses Diagnosis Post-menopause Asymptomatic postmenopausal status (age-related) (natural) Type 1 diabetes mellitus with hyperglycemia Type I (juvenile type) diabetes mellitus without mention of complication, not stated as uncontrolled documented in this encounter Care Teams Lean Facilitator Relationship Specialty Start Date End Date Mitchell Yap MD [address] [place] [address] PCP - General 05/19/10 07/17/23 documented as of this encounter
--- OUTSIDE RECORDS SUMMARY | 2024-04-18 13:13 | XMS_ITS | Encounter Summary ---
[place] [address] Care Team Providers Care Student Education Specialist Name Role Phone Mitchell Yap MD Primary Care Provider [phone] Reason for Visit * Reason Onset Date Comments Pump/sensor 04/01/2023 Encounter Details Date Type Department Care Team (Late st Contact Info) Description 04/01/2023 Telephone [place] [address] Namita Cordero Pump/sensor Social History Tobacco Use [...] * Telephone Encounter - Namita Cordero - 04/01/2023 2:30 PM EDT Documentation request received from [employer]. 02/21/23 office notes routed Fax number: [phone] documented in this encounter Plan of Treatment Upcoming Encounters Date Type Department Care Team (Late st Contact Info) Description 06/05/2024 10:15 AM EST Office [place] [address] Namita Bansal MD [facility] [place] [address] documented as of this encounter Goals Goal Patient Goal Type Associated Problems Recent Progress Patient-Stated? Author Exercise 3x per week (30 min per time) Exercise No Keila Arango, CHRISTIANO documented as of this encounter Visit Diagnoses Not on filedocumented in this encounter Care Teams Student Education Specialist Relationship Specialty Start Date End Date Mitchell Yap MD [address] [place] [address] PCP - General 05/19/10 07/17/23 documented as of this encounter
--- OUTSIDE RECORDS SUMMARY | 2024-04-18 13:13 | XMS_ITS | Encounter Summary ---
[place] [address] Care Team Providers Care Veneer Splicer Name Role Phone Mitchell Yap MD Primary Care Provider [phone] Encounter Details Date Type Department Care Team (Late st Contact Info) Description 04/04/2023 Telephone [place] [address] Natalia Cardona Social History Tobacco [...] 10:15 AM EST Office [place] [address] Namita Bansal MD [facility] DR ENDOCRINOLOGY DEPT [place], [place] [id number] documented as of this encounter Goals Goal Patient Goal Type Associated Problems Recent Progress Patient-Stated? Author Exercise 3x per week (30 min per time) Exercise No Keila Arango, CDE documented as of this encounter Visit Diagnoses Not on filedocumented in this encounter Care Teams Veneer Splicer Relationship Specialty Start Date End Date Mitchell Yap MD [address] [place] [address] PCP - General 05/19/10 07/17/23 documented as of this encounter
--- OUTSIDE RECORDS SUMMARY | 2024-04-18 13:13 | XMS_ITS | Encounter Summary ---
[place] [address] Care Team Providers Care Forms Analyst Name Role Phone Mitchell Yap MD Primary Care Provider [phone] Reason for Visit * Reason Onset Date Comments Prior Authorization 12/09/2022 Encounter Details Date Type Department Care Team (Late st Contact Info) Description 12/09/2022 Telephone [place] [phone] Namita Cordero Prior Authorization Social History Tobacco [...] Telephone Encounter - Namita Cordero - 12/14/2022 7:29 AM EDT BC[employer] sent alternative form [phone] * Telephone Encounter - Namita Cordero - 12/10/2022 11:09 AM EDT Previous Medications Tried Medication: Fosamax * Telephone Encounter - Namita Cordero - 12/10/2022 11:08 AM EDT Medication Prior Authorization Kayleigh Medication name/dose/directions: Reclast (J3489) - once yearly ([facility]) Rationale for request: Osteoporosis (M81.0) Health plan: [facility] [place] (Fax) [place]: [phone] Authorizing insurance claims representative name: Nedra Sent to health plan on: 12/10/22 PA Outcome: PA Not Needed Quantity approved: Authorization number: Start date: End date: * Telephone Encounter - Namita Cordero - 12/09/2022 12:43 PM EDT Information sent to [facility] of [place] to see if PA is needed for Reclast (J3489) infusion at [facility] documented in this encounter Plan of Treatment Upcoming Encounters Date Type Department Care Team (Late st Contact Info) Description 06/05/2024 10:15 AM EST Office [place] [address] Namita Bansal MD [facility] [place] [address] documented as of this encounter Goals Goal Patient Goal Type Associated Problems Recent Progress Patient-Stated? Author Exercise 3x per week (30 min per time) Exercise No Keila Arango, CHRISTIANO documented as of this encounter Visit Diagnoses Not on filedocumented in this encounter Care Teams Forms Analyst Relationship Specialty Start Date End Date Mitchell Yap MD [address] [place] [address] PCP - General 05/19/10 07/17/23 documented as of this encounter
--- OUTSIDE RECORDS SUMMARY | 2024-04-18 13:13 | XMS_ITS | Encounter Summary ---
Author Organization [facility] [place] [address] Care Team Providers Care Computer Numerical Control Programmer Name Role Phone Mitchell Yap MD Primary Care Provider [phone] Encounter Details Date Type Department Care Team (Latest Contact Info) Description 02/21/2023 Travel Social History Tobacco Use Types Packs/Day [...] 10:15 AM EST Office [place] [address] Namita Bansal MD [facility] [address] documented as of this encounter Goals Goal Patient Goal Type Associated Problems Recent Progress Patient-Stated? Author Exercise 3x per week (30 min per time) Exercise No eKila Arango, CDE documented as of this encounter Visit Diagnoses Not on filedocumented in this encounter Care Teams Computer Numerical Control Programmer Relationship Specialty Start Date End Date Mitchell Yap MD [address] [place] [address] PCP - General 05/19/10 07/17/23 documented as of this encounter
--- OUTSIDE RECORDS SUMMARY | 2024-04-18 13:14 | XMS_ITS | Encounter Summary ---
[place] [address] Care Team Providers Care Explosives Operator Name Role Phone Mitchell Yap MD Primary Care Provider [phone] Reason for Visit * Reason Onset Date Comments Pump/sensor 10/23/2021 Encounter Details Date Type Department Care Team (Late st Contact Info) Description 10/23/2021 Tele[place] [address] Namita Cordero Pump/sensor Social History Tobacco Use [...] encounter Miscellaneous Notes * Telephone Encounter - Sofie Richardson I - 10/28/2021 7:16 AM EDT [employer] form faxed to [phone] on 10/27 * Telephone Encounter - Namita Cordero - 10/27/2021 8:32 AM EDT Faxed 10/27 * Telephone Encounter - Namita Cordero - 10/26/2021 11:42 AM EDT Prescription from [employer]. Filled out. Dr. Vallecillo will sign. Secretaries will fax. * Telephone Encounter - Namita Cordero - 10/23/2021 7:30 AM EDT Received prescription from [employer] Will complete as soon as possible documented in this encounter Plan of Treatment Upcoming Encounters Date Type Department Care Team (Late st Contact Info) Description 06/05/2024 10:15 AM EST Office [place] [address] Namita Bansal MD [facility] [place] [address] documented as of this encounter Goals Goal Patient Goal Type Associated Problems Recent Progress Patient-Stated? Author Exercise 3x per week (30 min per time) Exercise No Keila Arango CDE documented as of this encounter Visit Diagnoses Not on filedocumented in this encounter Care Teams Explosives Operator Relationship Specialty Start Date End Date Mitchell Yap MD [address] [place] [address] PCP - General 05/19/10 07/17/23 documented as of this encounter
--- OUTSIDE RECORDS SUMMARY | 2024-04-18 13:14 | XMS_ITS | Encounter Summary ---
[place] [address] Care Team Providers Care Aircraft Communicator Name Role Phone Mitchell Yap MD Primary Care Provider [phone] Encounter Details Date Type Department Care Team (Latest Contact Info) Description 03/25/2021 8:40 AM EDT Laboratory Appointment Lab [address] [address] Type 1 diabetes mellitus with other specified complication Social History Tobacco Use Types Packs/Day [...] 10:15 AM EST Office [place] [address] Namita Bansal MD [facility] [place] [address] documented as of this encounter Goals Goal Patient Goal Type Associated Problems Recent Progress Patient-Stated? Author Exercise 3x per week (30 min per time) Exercise Keila Espinoza CDE documented as of this encounter Procedures Procedure Name Priority Date/Time Associated Diagnosis Comments HC CREATININE Routine 03/25/2021 8:56 AM EDT Type 1 diabetes mellitus with other specified complication HC THYROID STIMULATING HORMONE, SERUM Routine 03/25/2021 8:56 AM EDT Type 1 diabetes mellitus with other specified complication HC POTASSIUM Routine 03/25/2021 8:56 AM EDT Type 1 diabetes mellitus with other specified complication documented in this encounter Results * Creatinine (03/25/2021 8:56 AM EDT) Creatinine 0.78 0.70 - 1.20 mg/dL [facility] Est Glomerular Filtration Rate 80 >=60 mL/min/1. 73 m?? [facility] Comment: This patient? s estimated glomerular filtration rate (eGFR) is between 80 mL/min/1.73 m2 (patients with less muscle mass) and 93 mL/min/1.73 m2 (patients with more muscle mass) as determined by the CKD-EPI equation. Assessment of eGFR is not appropriate when creatinine concentrations are rapidly changing. For clinical decisions where creatinine clearance will affect therapy, a 24-hour urine creatinine clearance may be advised. Assignment of CKD stage 1 - 5 for patients with an eGFR near the transition point between stages may be based on clinical assessment of muscle mass and symptoms in addition to eGFR. Blood 03/25/2021 8:56 AM EDT 03/25/2021 9:05 AM EDT Narrative Resulting Agency Comment Spec In Lab Norris Campos MD CHEMISTRY ORDERABLE S [facility] [place] [address] * Potassium (03/25/2021 8:56 AM EDT) Potassium 4.1 3.5 - 5.0 mmol/L [facility] Comment: Please note: ??Patients with WBC >100,000 may have falsely elevated Potassium levels. ??For accurate Potassium quantification in these patients send serum separator tube (gold top) for subsequent determinations. ??Contact the Clinical Chemistry Laboratory if there are any questions. Blood 03/25/2021 8:56 AM EDT 03/25/2021 9:05 AM EDT Narrative Resulting Agency Comment Spec In Lab Norris Campos MD CHEMISTRY ORDERABLE S Performing Organization Address [facility] Co de Phone Number [facility] [place] [address] * TSH (03/25/2021 8:56 AM EDT) Thyroid Stimulating Hormone 2.39 0.27 - 4.20 mcIU/mL [facility] Comment: Reference Interval (mcIU/mL): Females: ??First Trimester: 0.23-3.88 ??Second Trimester: 0.22-3.90 ??Third Trimester: 0.44-4.66 Blood 03/25/2021 8:56 AM EDT 03/25/2021 9:05 AM EDT Narrative Resulting Agency Comment Spec In Lab Norris Campos MD CHEMISTRY ORDERABLE S Performing Organization Address [facility] Co de Phone Number [facility] [place] [address] documented in this encounter Visit Diagnoses Diagnosis Type 1 diabetes mellitus with other specified complication documented in this encounter Care Teams Aircraft Communicator Relationship Specialty Start Date End Date Mitchell Yap MD [address] [place] [address] PCP - General 05/19/10 07/17/23 documented as of this encounter
--- OUTSIDE RECORDS SUMMARY | 2024-04-18 13:14 | XMS_ITS | Encounter Summary ---
[place] [address] Care Team Providers Care Pigment Presser Name Role Phone Mitchell Yap MD Primary Care Provider [phone] Reason for Visit * Reason Onset Date Comments Prior Authorization 10/06/2020 Pump/sensor 10/06/2020 Encounter Details Date Type Department Care Team (Late st Contact Info) Description 10/06/2020 Telephone [place] [phone] Namita Cordero Prior Authorization; Pump/sensor Social History Tobacco Use Types Packs/Day [...] * Telephone Encounter - Namita Cordero - 10/06/2020 7:51 AM EDT PA for Sensors received from [employer] for [place] Medicaid. Filled out. Office notes printed Dr. Rojas will sign. Secretaries will fax. * Telephone Encounter - Elena Donohue - 10/06/2020 7:51 AM EDT Faxed PA request form to [phone] on 10/15/20 * Telephone Encounter - Namita Cordero - 10/06/2020 7:51 AM EDT Images from the original note were not included. documented in this encounter Plan of Treatment Upcoming Encounters Date Type Department Care Team (Late st Contact Info) Description 06/05/2024 10:15 AM EST Office [place] [address] Namita Bansal MD [facility] [place] [address] documented as of this encounter Goals Goal Patient Goal Type Associated Problems Recent Progress Patient-Stated? Author Exercise 3x per week (30 min per time) Exercise No Keila Arango CDE documented as of this encounter Visit Diagnoses Not on filedocumented in this encounter Care Teams Pigment Presser Relationship Specialty Start Date End Date Mitchell Yap MD [address] [place] [address] PCP - General 05/19/10 07/17/23 documented as of this encounter
--- OUTSIDE RECORDS SUMMARY | 2024-04-18 13:14 | XMS_ITS | Encounter Summary ---
Author Organization [facility] [place] [address] Care Team Providers Care Technical Professional Name Role Phone Mitchell Yap MD Primary Care Provider [phone] Encounter Details Date Type Department Care Team (Latest Contact Info) Description 03/25/2021 8:30 AM EDT Laboratory Appointment Lab [address] [address] Raynaud's phenomenon (secondary); Pharyngeal dysphagia; Vascular disorder of skin Social History Tobacco Use Types Packs/Day Years [...] 10:15 AM EST Office [place] [address] Namita Bansal MD [facility] [place] [address] documented as of this encounter Goals Goal Patient Goal Type Associated Problems Recent Progress Patient-Stated? Author Exercise 3x per week (30 min per time) Exercise No Keila Arango, CHRISTIANO documented as of this encounter Procedures Procedure Name Priority Date/Time Associated Diagnosis Comments [facility] RNA POLYMERASE AB Routine 03/25/2021 8:56 AM EDT Raynaud's phenomenon (secondary) Pharyngeal dysphagia Vascular disorder of skin [facility] SCL-70 Routine 03/25/2021 8:56 AM EDT Raynaud's phenomenon (secondary) Pharyngeal dysphagia Vascular disorder of skin [facility] U1RNP AUTOANTIBODIES Routine 03/25/2021 8:56 AM EDT Raynaud's phenomenon (secondary) Pharyngeal dysphagia Vascular disorder of skin [facility] IMMUNO CENTROMERE AB QUAL OR SEMI QUANT MULT STEP Routine 03/25/2021 8:56 AM EDT Raynaud's phenomenon (secondary) Pharyngeal dysphagia Vascular disorder of skin [facility] ANATITRE (ANDPATTERN) Routine 03/25/2021 8:56 AM EDT Raynaud's phenomenon (secondary) Pharyngeal dysphagia Vascular disorder of skin documented in this encounter Results * U1RNP Antibody (03/25/2021 8:56 AM EDT) U1RNP Ab <0.2 <1.0 (Negative) [facility] Comment: Test Performed by: [facility] [address] [place] [address] [employer] Supervisor: Alpesh Hughes M.D. Ph.D.; CLIA# [id number] Blood 03/25/2021 8:56 AM EDT 03/25/2021 10:59 AM EDT Narrative Resulting Agency Comment Spec In Lab Mitchell Yap MD LAB SEND OUT ORDERAB LES Performing Organization Address [facility] Co de Phone Number [facility] [place] [address] * Scl 70 Antibody (03/25/2021 8:56 AM EDT) Scl-70 Ab <0.2 <1.0 (Negative) U [facility] Comment: Test Performed by: [facility] [address] [place] [address] [employer] Supervisor: Alpesh Hughes M.D. Ph.D.; CLIA# [id number] Blood 03/25/2021 8:56 AM EDT 03/25/2021 10:59 AM EDT Narrative Resulting Agency Comment Spec In Lab Mitchell Yap MD LAB SEND OUT ORDERAB LES Performing Organization Address [facility] de Phone Number [facility] [place] [address] * GURJIT (03/25/2021 8:56 AM EDT) GURJIT Ab Screen Test ?Result ? Flag ??Unit ??RefValue Antinuclear Ab, HEp-2 ? <1:80 (Negative) ? <1:80 (Negative) ??Substrate, S ? ADDITIONAL INFORMATION --------- ?Method: Immunofluorescence using HEp-2 cellular substrate. ?Test Performed by: ?[facility] ?[address] [place] [address] ?[employer] Supervisor: Alpesh Hughes M.D. Ph.D.; CLIA# [id number] [facility] Blood 03/25/2021 8:56 AM EDT 03/25/2021 10:59 AM EDT Narrative Resulting Agency Comment Spec In Lab Mitchell Yap MD LAB SEND OUT ORDERAB LES Performing Organization Address [facility] Co de Phone Number [facility] [place] [address] * Centromere Antibody (03/25/2021 8:56 AM EDT) Centromere Ab <0.2 <1.0 (Negative) U [facility] Comment: Test Performed by: [place] [address] [employer] Supervisor: Alpesh Hughes M.D. Ph.D.; CLIA# [id number] Blood 03/25/2021 8:56 AM EDT 03/25/2021 10:59 AM EDT Narrative Resulting Agency Comment Spec In Lab Mitchell Yap MD LAB SEND OUT ORDERAB LES Performing Organization Address [facility] Co de Phone Number [facility] [place] [address] * RNA Polymerase III Ab,IgG (03/25/2021 8:56 AM EDT) RNA Polymerase III Ab, IgG (MAY) <20 <20 [facility] Comment: Test performed by [facility] [place] ?[address], ?[place] [address] ? [employer] Demonstration Agent: Carmel Gupta MD,PHD,UZMA Test Reported by Trang Syed, [facility], [address] [place] [address] Bandar Borja M.D., Ph.D., Director of Laboratories , [place] [id number] Blood 03/25/2021 8:56 AM EDT 03/25/2021 11:04 AM EDT Narrative Resulting Agency Comment Spec In Lab Mitchell Yap MD LAB SEND OUT ORDERAB LES [facility] [place] [address] documented in this encounter Visit Diagnoses Diagnosis Raynaud's phenomenon (secondary) Raynaud's syndrome Pharyngeal dysphagia Dysphagia, pharyngeal phase Vascular disorder of skin documented in this encounter Care Teams Technical Professional Relationship Specialty Start Date End Date Mitchell Yap MD [address] [place] [address] PCP - General 05/19/10 07/17/23 documented as of this encounter
--- OUTSIDE RECORDS SUMMARY | 2024-04-18 13:14 | XMS_ITS | Encounter Summary ---
[place] [address] Care Team Providers Care Marble Installer Supervisor Name Role Phone Mitchell Yap MD Primary Care Provider [phone] Reason for Visit * Reason Onset Date Comments Medication Refill 07/10/2021 Encounter Details Date Type Department Care Team (Late st Contact Info) Description 07/10/2021 [place] [address] Genna Echols RN Social History Tobacco Use [...] 10:15 AM EST Office [place] [phone] [facility] [place] [address] documented as of this encounter Goals Goal Patient Goal Type Associated Problems Recent Progress Patient-Stated? Author Exercise 3x per week (30 min per time) Exercise No Keila Arango, CDE documented as of this encounter Visit Diagnoses Not on filedocumented in this encounter Care Teams Marble Installer Supervisor Relationship Specialty Start Date End Date Mitchell Yap MD [address] [place] [address] PCP - General 05/19/10 07/17/23 documented as of this encounter
--- OUTSIDE RECORDS SUMMARY | 2024-04-18 13:14 | XMS_ITS | Encounter Summary ---
Author Organization [facility] [place] [address] Care Team Providers Care Rotational Moulding Operator Name Role Phone Mitchell Yap MD Primary Care Provider [phone] Reason for Visit * Reason Comments Post Op 05-19-21 right long trigger finger Encounter Details Date Type Department Care Team (Late st Contact Info) Description 06/02/2021 10:00 AM EST Office [place] [address] Namita Brar PA [facility] [place] [address] s/p A1 jeannette release right long finger with Dr. Diehl 05/19/2021 Social History Tobacco Use Types Packs/Day Years [...] Sign Reading Time Taken Comments Blood Pressure 131/61 06/02/2021 9:46 AM EST Pulse 88 06/02/2021 9:46 AM EST Temperature - - Respiratory Rate - - Oxygen Saturation - - Inhaled Oxygen Concentration - - Weight 53.5 kg (118 lb) 06/02/2021 9:46 AM EST Height 149.9 cm (4' 11) 06/02/2021 9:46 AM EST Body Mass Index 23.83 06/02/2021 9:46 AM EST documented in this encounter Progress Notes * Namita Brar PA - 06/02/2021 10:00 AM EST PATIENT NAME: Ebonie Sol AGE: 66 y.o. MR#: [id number] DATE OF VISIT: 06/02/2021 DATE OF SURGERY: 05/19/2021 SURGERY DESCRIPTION: A1 jeannette release right long finger SURGEON: Dr. Diehl CHIEF COMPLAINT: 2 weeks S/P above procedure HISTORY OF PRESENT ILLNESS: Ms. Sol is a 66 y.o. female who presents 2 weeks s/p the above procedures for office follow up. She has been doing well since surgery. She states she had more significant pain and stiffness shortly after surgery, but this seems to be improving. She has not needed to take any pain medication recently, although she does take Tylenol on a regular basis for arthritis. Ms. Sol denies fever or chills. PHYSICAL EXAM: Ms. Sol is a 66 y.o. female who is in no apparent distress, alert and cooperative. Inspection: Surgical incision appears to be healing without complication. There is no evidence of infection ROM/Strength: She is able to flex and extend her finger without triggering. She has some mild residual stiffness at her PIP joint which prevents full extension, but she feels that this is improving Neurovascular: Sensate distally with good perfusion. She has some altered sensation in the median distribution at baseline from a prior nerve injury, but she feels that her sensation is perhaps slightly better than it had been previously. SURVEY RESPONSES: [facility] Surgical Postop Visit 05/26/2021 PROMIS-10 General Health Very Good PROMIS-10 Quality of Life Good PROMIS-10 Physical Health Good PROMIS-10 Mental Health Good PROMIS-10 Social Activity Good PROMIS-10 Everyday Activities Completely PROMIS-10 Pain 2 PROMIS-10 Fatigue Mild PROMIS-10 Social Roles Very Good PROMIS-10 Anxious or Depressed Sometimes PROMIS PHYSICAL HEALTH SCORE 50.8 PROMIS MENTAL HEALTH SCORE 43.5 Problems with surgical incision/wound after surgery Yes Problems with incision Pain, Discharge or drainage Prescribed antibiotics No Caregiver after your surgical incision problem Yourself Gone to ER since knee surgery No Admitted to hospital since recent ortho surgery No Additional surgery on same body part No Satisfaction with Treatment Satisfied Choose Same Treatment Again Probably yes Returned to previous employment No Spending time in inpatient rehab facility No Rate overall condition today 8 [facility] Response 06/27/2015 MCCURDY-RIGHT HAND PAIN 3.09 MCCURDY-LEFT HAND PAIN 2.9 ASSESSMENT: 2 weeks s/p above procedure PLAN: The patient's sutures were removed today and Steri-strips were applied without complication. Now that her sutures have been removed, she may continue with ROM and gradual return to activity. She may shower and get the incision wet. She was instructed to perform scar massage over the incision.If the patient feels that she is having difficulty with pain or stiffness, we will refer her for formal hand therapy as needed. She does not feel that she needs hand therapy at this time, but she will contact us if she feels that her progress stalls. She is scheduled to have her left index trigger finger released on June 16. 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 The patient understands to contact us if she has any other questions or concerns. The patient will follow up as needed. The above documentation was completed using [employer] voice recognition software. documented in this encounter Plan of Treatment Upcoming Encounters Date Type Department Care Team (Late st Contact Info) Description 06/05/2024 10:15 AM EST Office [place] [address] Namita Bansal MD [facility] [place] [address] documented as of this encounter Goals Goal Patient Goal Type Associated Problems Recent Progress Patient-Stated? Author Exercise 3x per week (30 min per time) Exercise No Keila Arango CDE documented as of this encounter Visit Diagnoses Diagnosis s/p A1 jeannette release right long finger with Dr. Diehl 05/19/2021 Trigger finger (acquired) documented in this encounter Care Teams Rotational Moulding Operator Relationship Specialty Start Date End Date Mitchell Yap MD [address] [place] [address] PCP - General 05/19/10 07/17/23 documented as of this encounter
--- OUTSIDE RECORDS SUMMARY | 2024-04-18 13:14 | XMS_ITS | Encounter Summary ---
Author Organization [place] [address] Care Team Providers Care Net Sql Developer Name Role Phone Mitchell Yap MD Primary Care Provider [phone] Reason for Referral * Occupational Therapy (Routine) - Closed Specialty Diagnoses / Procedures Referred By Contact Referred To Contact Occupational Therapy / Orthopaedics Diagnoses Trigger thumb of left hand Trigger thumb of left hand Namita Brar PA [facility] [place] [address] [facility] [address] [place] [phone] Referral ID Status Reason Start Date Expiration Date V isits Requested Visits Authorized [id number] Closed Evaluate and Treat 06/29/2021 06/29/2022 12 12 Reason for Visit * Reason Comments Post Op 06-16-21 left trigge r finger release Encounter Details Date Type Department Care Team (Late st Contact Info) Description 06/29/2021 11:20 AM EST Office Visit [place] [address] [facility] [place] [address] A1 jeannette release left index finger 06/16/21 Dr. Diehl Social History Tobacco Use Types Packs/Day Years [...] Sign Reading Time Taken Comments Blood Pressure 129/71 06/29/2021 11:25 AM EST Pulse 85 06/29/2021 11:25 AM EST Temperature - - Respiratory Rate - - Oxygen Saturation - - Inhaled Oxygen Concentration - - Weight 54.4 kg (120 lb) 06/29/2021 11:25 AM EST Height 151.8 cm (4' 11.75) 06/29/2021 11:25 AM EST Body Mass Index 23.63 06/29/2021 11:25 AM EST documented in this encounter Progress Notes * Namita Brar PA - 06/29/2021 11:20 AM EST PATIENT NAME: Ebonie Sol AGE: 66 y.o. MR#: [id number] DATE OF VISIT: 06/29/2021 DATE OF SURGERY: 06/16/2021 SURGERY DESCRIPTION: A1 jeannette release left index finger. SURGEON: Dr. Diehl CHIEF COMPLAINT: 2 weeks S/P above procedure HISTORY OF PRESENT ILLNESS: Ms. Sol is a 66 y.o. female who presents 2 weeks s/p the above procedures for office follow up. She has been doing well since surgery. She has noticed that her left hand has been somewhat more uncomfortable when compared to her trigger finger release on the right side. 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 Ms. Sol deniesfever or chills. PHYSICAL EXAM: Ms. Sol is a 66 y.o. female who is in no apparent distress, alert and cooperative. Inspection: Surgical incision appears to be healing without complication. There is no evidence of infection ROM/Strength: She is able to flex and extend her finger without triggering. She has some stiffness that prevents her from making a tight fist Neurovascular: Sensate distally with good perfusion SURVEY RESPONSES: [facility] Surgical Postop Visit 06/25/2021 PROMIS-10 General Health Good PROMIS-10 Quality of Life Good PROMIS-10 Physical Health Good PROMIS-10 Mental Health Fair PROMIS-10 Social Activity Good PROMIS-10 Everyday Activities Mostly PROMIS-10 Pain 4 PROMIS-10 Fatigue Moderate PROMIS-10 Social Roles Good PROMIS-10 Anxious or Depressed Sometimes PROMIS PHYSICAL HEALTH SCORE 42.3 PROMIS MENTAL HEALTH SCORE 41.1 Problems with surgical incision/wound after surgery No Problems with incision - Prescribed antibiotics - Caregiver after your surgical incision problem - Gone to ER since knee surgery No Admitted to hospital since recent ortho surgery No Additional surgery on same body part No Satisfaction with Treatment Somewhat dissatisfied Choose Same Treatment Again Completely uncertain Employment status before injury Other Returned to previous employment No Spending time in inpatient rehab facility No Rate overall condition today 6 [facility] Response 06/27/2015 MCCURDY-RIGHT HAND PAIN 3.09 MCCURDY-LEFT HAND PAIN 2.9 ASSESSMENT: 2 weeks s/p above procedure PLAN: The patient's sutures were removed today and Steri-strips were applied without complication. Now that her sutures have been removed, she may continue with ROM and gradual return to activity. She may shower and get the incision wet. 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 If she continues to have symptoms she may benefit from additional formal therapy. The patient understands to contact us if she has any other questions or concerns. The patient will follow up as needed. The above documentation was completed using [employer] voice recognition software. documented in this encounter Plan of Treatment Upcoming Encounters Date Type Department Care Team (Late st Contact Info) Description 06/05/2024 10:15 AM EST Office Visit [place] [address] [facility] [place] [address] Scheduled Referrals Name Type Priority Associated Diagnoses Order Schedule Referral to Occupational Therapy Outpatient Referral Routine A1 jeannette release left index finger 06/16/21 Dr. Diehl Ordered: 06/29/2021 documented as of this encounter Goals Goal Patient Goal Type Associated Problems Recent Progress Patient-Stated? Author Exercise 3x per week (30 min per time) Exercise No Keila Arango, CHRISTIANO documented as of this encounter Visit Diagnoses Diagnosis A1 jeannette release left index finger 06/16/21 Dr. Diehl Trigger finger (acquired) documented in this encounter Care Teams Net Sql Developer Relationship Specialty Start Date End Date Mitchell Yap MD [address] [place] [address] PCP - General 05/19/10 07/17/23 documented as of this encounter
--- OUTSIDE RECORDS SUMMARY | 2024-04-18 13:14 | XMS_ITS | Encounter Summary ---
Author Organization Formerly [facility] [place] [address] Care Team Providers Care Hvac R Instructor Name Role Phone Mitchell Yap MD Primary Care Provider [phone] Reason for Visit * Reason Comments Establish Care R 3rd trigger finger - L 2nd trigger * Consultation (Routine) - Closed Specialty Diagnoses / Procedures Referred By Contac t Referred To Contact Orthopaedics Diagnoses Trigger finger, right middle finger Trigger finger, left index finger RT 3RD TRIGGER FINGER // LT 2ND TRIGGER FINGER Mitchell Yap MD [address] [place] [address] [facility] [address] [place] [address] Referral ID Status Reason Start Date Expiration Date V isits Requested Visits Authorized [id number] Closed Consult, [facility] PCP Updated and/or Approved 02/24/2021 02/24/2022 12 12 Encounter Details Date Type Department Care Team (Late st Contact Info) Description 03/25/2021 1:00 PM EDT Office [place] [address] Namita Brar PA [facility] [place] [address] Trigger middle finger of right hand; Trigger index finger of left hand Social History Tobacco Use Types Packs/Day [...] Sign Reading Time Taken Comments Blood Pressure 124/58 03/25/2021 12:56 PM EDT Pulse 67 03/25/2021 12:56 PM EDT Temperature - - Respiratory Rate - - Oxygen Saturation - - Inhaled Oxygen Concentration - - Weight 58.5 kg (129 lb) 03/25/2021 12:56 PM EDT Height 149.9 cm (4' 11) 03/25/2021 12:56 PM EDT Body Mass Index 26.05 03/25/2021 12:56 PM EDT documented in this encounter Progress Notes * Prema Mckee RN - 03/25/2021 1:00 PM EDT Pre op teaching done for trigger finger release. Emphasis placed on post op hand elevation with hand above heart,fingers above palm,palm above wrist and wrist above elbow. Discussed importance of flexing fingers against original dressing.Take dressing off on day 3 and fully flex and extend fingers.Place Band-Aid over suture,no ointments. Reviewed suggestions for takingpost op pain medication. Questions solicited and answered to patient satisfaction. Written material provided. Patient knows to call with any additional questions or concerns. * Namita Brar PA - 03/25/2021 1:00 PM EDT PATIENT NAME: Ebonie Sol AGE: 66 y.o. MR#: [id number] DATE OF VISIT: 03/25/2021 DATE OF INJURY/ONSET: Chronic STAFF: Dr. Diehl CHIEF COMPLAINT: follow up for right long and left index trigger fingers HISTORY OF PRESENT ILLNESS: Ms. Sol is a 66 y.o. year old female who comes into clinic today for follow up regarding the bilateral hands. She has been seen in the hand clinic in the past for carpal tunnel syndrome and multiple trigger fingers. She has had surgery by Dr. Diehl for the left carpal tunnel release, left trigger thumb, left long trigger finger, and right index trigger finger. She has done well after the surgeries. She states that over 1 year ago she started to notice some triggering of her right long finger. Her left index finger started to trigger this past September. She has started to notice more stiffness in her right long finger recently. She has a history of diabetes. She has not had any recent injuries to her hands. PHYSICAL EXAM: Ms. Sol is a 66 y.o. female who is in no apparent distress, alert and cooperative. Inspection: She has some swelling at the base of the left index finger over the A1 jeannette. There isno erythema or ecchymosis. Palpation: She has pain with palpation over the A1 pulleys in the left index and right long fingers. There is palpable triggering when she performs active flexion. ROM/Strength: She is developing a PIP capsular contracture in the right long finger and has difficulty fully straightening the digit. She also has stiffness with active flexion. Neurovascular: She has diminished sensation in her right hand at baseline following a median nerve injury at the time of carpal tunnel surgery. Hands are well perfused DIAGNOSTIC STUDIES: No new studies SURVEY RESPONSES: [facility] Non-surgical Followup Visit 03/24/2021 PROMIS-10 General Health Good PROMIS-10 Quality of Life Good PROMIS-10 Physical Health Fair PROMIS-10 Mental Health Fair PROMIS-10 Social Activity Good PROMIS-10 Everyday Activities Moderately PROMIS-10 Pain 5 PROMIS-10 Fatigue Severe PROMIS-10 Social Roles Good PROMIS-10 Anxious or Depressed Sometimes PROMIS PHYSICAL SCORE (range 16-68) 34.9 PROMIS MENTAL SCORE (range 21-68) 41.1 Treatments Tried Regular exercise, Oral natural supplements (e.g chondroitin and glucosamine), Acetaminophen (e.g. Tylenol), Over the counter anti-inflammatory drugs (e.g Advil, Aspirin, Aleve) Satisfaction with Treatment - Choose Same Treatment Again - [facility] Response 06/27/2015 MCCURDY-RIGHT HAND PAIN 3.09 MCCURDY-LEFT HAND PAIN 2.9 No flowsheet data found. ASSESSMENT: Right long trigger finger, left index trigger finger PLAN: We discussed treatment options for trigger fingers to include splinting, cortisone injection,and surgical A1 jeannette release. She has had good results with her previous surgeries and would liketo schedule surgery for both hands. She would like to start with her right hand and when she has adequately recovered we can schedule surgery for her left hand. We discussed that she may need some hand therapy after surgery to address her finger stiffness in the right long finger. Consent was obtained today for her right hand. She will return for follow up 10 to 14 days postop. If she is doing well we can obtain consent and schedule surgery for her left hand after her postop visit. The patient understands to contact us if they have any other questions or concerns. The above documentation was completed using [employer] voice recognition software. documented in this encounter Plan of Treatment Upcoming Encounters Date Type Department Care Team (Late st Contact Info) Description 06/05/2024 10:15 AM EST Office [place] [address] Namita Bansal MD [facility] [place] [address] documented as of this encounter Goals Goal Patient Goal Type Associated Problems Recent Progress Patient-Stated? Author Exercise 3x per week (30 min per time) Exercise No Keila Arango CDE documented as of this encounter Visit Diagnoses Diagnosis Trigger middle finger of right hand Trigger finger (acquired) Trigger index finger of left hand Trigger finger (acquired) documented in this encounter Care Teams Hvac R Instructor Relationship Specialty Start Date End Date Mitchell Yap MD [address] [place] [id number] PCP - General 05/19/10 07/17/23 documented as of this encounter
--- OUTSIDE RECORDS SUMMARY | 2024-04-18 13:14 | XMS_ITS | Encounter Summary ---
Author Organization [facility] [place] [address] Care Team Providers Care Pricing Director Name Role Phone Mitchell Yap MD Primary Care Provider [phone] Reason for Visit * Auth/Cert Specialty Diagnoses / Procedures Referred By Malka vera Referred To Contact Diagnoses Trigger index finger of left hand Left index trigger finger Procedures PRO INCISE FINGER TENDON SHEATH TENDON SHEATH INCISION (TRIGGER FINGER) (WRVU 3.11) Referral ID Status Reason Start Date Expiration Date Visits Re quested Visits Authorized [id number] 1 1 Encounter Details Date Type Department Care Team (Latest Contact Info) Description 06/16/2021 11:53 AM EST - 06/16/2021 2:47 PM [facility] Hospital Encounter [place] [address] Jean Diehl MD [facility] [place] [address] Trigger index finger of left hand Discharge Disposition: Home Social History Tobacco Use [...] Reading Time Taken Comments Blood Pressure 149/63 06/16/2021 2:30 PM EST Pulse 67 06/16/2021 2:35 PM EST Temperature 36.3 ??C (97.3 ??F) 06/16/2021 2:01 PM ES T Respiratory Rate 18 06/16/2021 2:01 PM EST Oxygen Saturation 99% 06/16/2021 2:35 PM EST Inhaled Oxygen Concentration - - Weight 53.5 kg (118 lb) 06/16/2021 12:15 PM EST Height 149.9 cm (4' 11) 06/16/2021 12:15 PM EST Body Mass Index 23.83 06/16/2021 12:15 PM EST documented in this encounter Discharge Instructions * Patient Instructions* Norris Alvarado MD - 06/15/2021 12:14 PM EST Orthopaedic Hand Surgery Same Day Discharge Instructions: General Activities ?? Diet: Start light and progress as tolerated. No alcoholic beverages on the day of surgery or while taking narcotics. If taking narcotics, make sure you are getting plenty of fluids and fiber. ?? In general, care should be taken the first several days following surgery to limit strenuous activity. You want to avoid any activities that you may lose your balance, slip, trip, fall or re-injure your surgery. ?? You may shower tomorrow. Cover your dressing/cast with a plastic bag to keep it dry. ?? No driving while taking narcotic medications or wearing a device (splint, cast, sling, brace) that limits joint mobility. When you feel you can safely control your vehicle and respond to unpredictable situations you may resume driving. Hand Use ?? Decreased sensation for several hours following surgery is often from the local anesthesia used during the procedure. This will resolve on its own. ?? If a regional anesthetic was used, wear your sling until you regain full function of your limb, and keep a close eye on the positioning of your arm and hand. When you have regained function and sensation you may then remove the sling. ?? Do not use your operative hand for any lifting, pushing or pulling. You may move your elbow and shoulder as tolerated. ?? Gentle exercises with any exposed fingers including your operative finger are encouraged and gently opening and closing the digits will keep the joints flexible. Specific activities and exercises will be discussed at your first postoperative visit. Elevation ?? Some swelling is expected after surgery. Elevation are the best remedies to reduce swelling and pain. Keep your hand properly elevated above the level of the heart i.e., fingers above palm, palm above the wrist, wrist above the elbow. Use pillows to increase elevation. ?? Intermittently apply ice to the outside of the dressing for 20 minutes 6-8 times a day. You will want to ice and elevate for 5-7 days after surgery or as long as it hurts. ?? Do not rely on a sling as it does not sufficiently elevate your hand. For proper elevation whilewalking around place your surgical hand on your opposite shoulder. Dressing/ Wound: ?? The post-op dressing, splint or cast is a very important part of your treatment. If you have anyquestions please call us for clarification. If your dressing becomes wet or damaged please call theoffice. ?? No creams, lotions or ointments on your incision. Keep steri-strips in place. They will fall offon their own ?? Keep your dressing on and dry for 48 hours then you may remove. Cover your suture/incision with a Band-Aid and change as needed. Keep your incision clean and dry until follow-up appointment. Pain Management ?? Most patients only require narcotics for a short period of time. Ice and elevation is an effective and important modality to use in conjunction with your oral pain medication. In a day or two you may be ready to start decreasing the amount of pain medication your taking. Pain medication is to betaken on an ???as needed?if needed?? basis. Remember to start with the least amount and evaluate its effectiveness. ?? You should not drink alcoholic beverages while on pain medication. ?? If tolerated, please take Tylenol three times a day in conjunction with the narcotic as they complement each other. Once pain is better controlled, you may simply take extra strength Tylenol, one to two tablets every six hours as needed. Do not exceed 3,000 mg in 24 hours. ?? The most common side effects of narcotic pain medications are nausea and constipation. To decrease nausea always take pain medication with food. If you are experiencing vomiting, please call us right away. To minimize constipation, drink plenty of fluids, eat a high fiber diet with plenty of fruits and vegetables, and take a stool softener or laxative as needed. ?? You may take an anti-inflammatory medication such as Ibuprofen/Advil/Motrin or Naproxen/Aleve. Refer to the medication bottles for daily allowance and dosing. Discontinue if it causes stomach upset. Contact Information: During clinic hours M-F 8-4:30 please call [phone] If it is after 5:00PM on a weekday or a weekend and it is of an urgent nature please call [phone] and ask for the on-call orthopaedic resident. Call if: 1. You have a fever greater than 101 F or experience chills 2. Increased drainage from incision 3. Redness or extreme swelling around incision 4. Increased pain or change in pain that is not controlled with elevation, ice and your pain medication. 5. Any questions concerns related to surgery Future Appointments Date Time Provider Department Center 06/29/2021 11:20 AM Namita Brar PA [facility] ORTH 3A [facility] 06/29/2021 1:45 PM Norris Campos MD [facility] ENDO [facility] 09/23/2021 10:30 AM Marga Leiva APRN [facility] documented in this encounter Medications at Time of Discharge Medication Sig Dispensed Refills Start Date End Date atorvastatin (Lipitor) 20 mg Tablet TAKE ONE TABLET BY MOUTH AT BEDTIME 02/24/2021 glucagon, Human Recombinant, 1 mg Recon Soln as needed. 10/19/2018 pantoprazole EC (Protonix) 40 mg Tablet, Delayed Release (E.C.) TAKE ONE TABLET BY MOUTH EVERY DAY 10/10/2020 zoledronic guju-uruxouch-yewlf (zoledronic Acid) 5 mg/100 mL IV solution Inject 5 mg into the vein. Yearly insulin needles, disposable, (BD ULTRA-FINE SHORT PEN NEEDLE) 31 gauge x 5/16 Needle 1 Box by [facility].(Non-Drug; Combo Route) route 4 times daily. Box of 100 1 each 3 06/26/2019 MAGNESIUM ORAL Take by mouth daily. acetaminophen (TYLENOL) 500 mg Tablet Take 1,000 mg by mouth every 6 hours as needed for Pain. ibuprofen (ADVIL;MOTRIN) 200 mg Tablet Take 600 mg by mouth daily as needed for Pain. Diabetic Supplies, Miscellan. [facility] 02/24/2017 Diabetic Supplies, Miscellan. [facility] PWO faxed to [facility] Medical 100 each 12 01/17/2017 ADVAIR DISKUS 100-50 mcg/dose Disk with Device Inhale 1 puff into the lungs daily. 11/23/2016 Diabetic Supplies, Miscellan. [facility] Form faxed to [facility] for insulin pump supplies 1 each 3 01/05/2016 multivitamin with minerals (THERA-M) 9-0.4 mg Tablet Take 1 tablet by mouth daily. lisinopril (PRINIVIL;ZESTRIL) 20 mg Tablet Take 1 tablet by mouth daily. 30 tablet 09/25/2014 traMADoL (Ultram) 50 mg Tablet Take 1 tablet by mouth every 6 hours as needed for Pain. 5 tablet 06/16/2021 09/23/2021 cyclobenzaprine (Flexeril) 5 mg Tablet TAKE 1 TO 2 TABLETS BY MOUTH TWO TIMES A DAY NEEDED 05/07/2021 02/21/2023 insulin lispro (humaLOG) 100 unit/mL SolutionIndications: Type 1 diabetes mellitus without complication, with alf current use of insulin pump INJECT 40-50 UNITS SUBCUTANEOUSLY CONTINUOUS DAILY VIA PUMP. DX:E10.69 50 mL 3 02/27/2021 03/22/2022 Contour Next Test Strips Strip TEST 8 TIMES A DAY. DX: E10.9 700 strip 3 08/25/2020 07/10/2021 insulin glargine (LANTUS SOLOSTAR U-100 INSULIN) 100 unit/mL (3 mL) pen Inject 10 Units subcutaneously daily. 15 mL 3 06/25/2019 02/21/2023 documented as of this encounter Progress Notes * Tamika Parisi RN - 06/16/2021 2:47 PM EST Assumed care of pt from David Duran RN shortly after pt's arrival in [facility]. Pt awake, alert, VSS, Lhand with gauze/nina wrap dressing CDI, fingers pink, warm, wiggling, pt endorses numbness/tingling,denies pain or nausea. Pt tolerated PO fluids, declined crackers; all D/C instructions reviewed w/pt verbalizing understanding. PIV removed intact, pt dressed, ambulated to bathroom, voided. Patient ambulated to car for discharge accompanied by [facility] staff member. documented in this encounter H&P Notes * Norris Alvarado MD - 06/16/2021 1:14 PM EST PRE-OPERATIVE HISTORY AND PHYSICAL for ADMISSION, OBSERVATION OR PROCEDURE Date of : 1955 Age: 66 y.o. PCP: Mitchell Yap MD Presenting Diagnosis/Chief Complaint: left index trigger finger History of Present Illness: Ebonie Correahlman is a 66 y.o. female who presents for pre-operative examination. Please see PUNEET Cui 's note for full details of the patient's specific problem. Patient denies any recent change in health, no recent illness. No CP, SOB, fevers, chills. PMHx: Patient Active Problem List Diagnosis Code ??? CIS - type 1 DM ??? CIS - Entered not Verified ??? Hypertension I10 ??? Carpal tunnel syndrome on left G56.02 ??? Hypoglycemia unawareness in type 1 diabetes mellitus E10.649 ??? Trigger thumb of left hand M65.312 ??? s/p A1 jeannette release right long finger with Dr. Diehl 05/19/2021 M65.331 Past Medical History: Diagnosis Date ??? Asthma ??? GERD (gastroesophageal reflux disease) [...] LIGAMENT performed by Jean Diehl MD at [facility] ??? PRO INCISE FINGER TENDON SHEATH Left 06/10/2016 TENDON SHEATH INCISION (TRIGGER FINGER) (WRVU 3.11) performed by Jean Diehl MD at [facility] ??? PRO INCISE FINGER TENDON SHEATH Left 09/26/2018 TENDON SHEATH INCISION (TRIGGER FINGER) (WRVU 3.11) performed by Jean Diehl MD at [facility] ??? PRO INCISE FINGER TENDON SHEATH Right 10/10/2018 TENDON SHEATH INCISION (TRIGGER FINGER) (WRVU 3.11) performed by Jean Diehl MD at [facility] ??? PRO INCISE FINGER TENDON SHEATH Right 05/19/2021 TENDON SHEATH INCISION (TRIGGER FINGER) (WRVU 3.11) performed by Jean Diehl MD at [facility] Home Medications: Medications Prior to Admission Medication Sig Dispense Refill Last Dose ??? cyclobenzaprine (Flexeril) 5 mg Tablet TAKE 1 TO 2 TABLETS BY MOUTH TWO TIMES A DAY NEEDED ??? traMADoL (Ultram) 50 mg Tablet Take 1 tablet by mouth every 6 hours as needed for Pain. (Patient not taking: Reported on 06/02/2021) 8 tablet 0 ??? atorvastatin (Lipitor) 20 mg Tablet TAKE ONE TABLET BY MOUTH AT BEDTIME ??? insulin lispro (humaLOG) 100 unit/mL Solution INJECT 40-50 UNITS SUBCUTANEOUSLY CONTINUOUS DAILY VIA PUMP. DX:E10.69 50 mL 3 ??? glucagon, Human Recombinant, 1 mg Recon Soln as needed. ??? pantoprazole EC (Protonix) 40 mg Tablet, Delayed Release (E.C.) TAKE ONE TABLET BY MOUTH EVERY DAY ??? Contour Next Test Strips Strip TEST 8 TIMES A DAY. DX: E10.9 700 strip 3 ??? zoledronic tgmr-atkzwgpt-iwgap (zoledronic Acid) 5 mg/100 mL IV solution Inject 5 mg into the vein. Yearly ??? insulin needles, disposable, (BD ULTRA-FINE SHORT PEN NEEDLE) 31 gauge x 5/16 Needle 1 Box by [facility].(Non-Drug; Combo Route) route 4 times daily. Box of 100 1 each 3 ??? insulin glargine (LANTUS SOLOSTAR U-100 INSULIN) 100 unit/mL (3 mL) pen Inject 10 Units subcutaneously daily. (Patient not taking: Reported on 07/14/2020) 15 mL 3 ??? MAGNESIUM ORAL Take by mouth daily. ??? acetaminophen (TYLENOL) 500 mg Tablet Take 1,000 mg by mouth every 6 hours as needed for Pain. ??? ibuprofen (ADVIL;MOTRIN) 200 mg Tablet Take 600 mg by mouth daily as needed for Pain. ??? Diabetic Supplies, Miscellan. [facility] CMN [facility] ??? Diabetic Supplies, Miscellan. [facility] PWO faxed to [facility] Medical 100 each 12 ??? ADVAIR DISKUS 100-50 mcg/dose Disk with Device Inhale 1 puff into the lungs daily. ??? Diabetic Supplies, Miscellan. [facility] Form faxed to [facility] for insulin pump supplies 1 each 3 ??? multivitamin with minerals (THERA-M) 9-0.4 mg Tablet Take 1 tablet by mouth daily. ??? lisinopril (PRINIVIL;ZESTRIL) 20 mg Tablet Take 1 tablet by mouth daily. 30 tablet Allergies: Allergies Allergen Reactions ??? Penicillins Anaphylaxis ??? Codeine Nausea And Vomiting ??? Prochlorperazine ??? Reclast [Zoledronic Ykfl-Xkxyihie-Lljia] VERTIGO ??? Naproxen Family History: Non contributory Family History Problem Relation Age of Onset ??? Cancer Sister Review of Systems: as per HPI Physical Exam: VITALS: Temperature Temp: 36.4 ??C (97.5 ??F) Heart Rate Heart Rate: 69 Blood Pressure BP: 132/67 Respiratory Rate Resp: 18 SpO2 SpO2: 99 % No intake/output data recorded. General: alert, appears stated age and cooperative Pulmonary: equal, clear breath sounds bilaterally and no crepitus Cardiovascular: S1S2 present Assessment and Plan: 66 y.o. female with the above problem, plan to proceed to OR with Dr. Diehl for left index A1 jeannette release. Norris Alvarado MD documented in this encounter Miscellaneous Notes * Op Note - Jean Diehl MD - 06/16/2021 1:40 PM EST [facility] Operative Note Patient Name: Ebonie Sol : [id number] MR#: [id number] Case Date: 06/16/2021 Surgeon: Surgeon(s) and Role: * Jean Diehl MD - Primary * Norris Alvarado MD - Resident Preoperative diagnosis: Left index trigger finger Postoperative diagnosis: Left index trigger finger Procedure Performed: A1 jeannette release left index finger. Anesthesia: Local with sedation. Operative Indication: The patient is a 66 y.o.-year-old Female with triggering and pain at the A1 jeannette level of Her left index finger. She was brought to the operating room for A1 jeannette release. Summary of Procedure: After 900 mg of intravenous clindamycin was administered, the patient's left upper extremity was prepped with a Hibiclens scrub and a ChloraPrep. her arm was draped in a sterilefashion. A preoperative timeout was performed as per [facility] protocol. Then 3 mL of 1% lidocaine with epinephrine buffered with sodium bicarbonate was injected subcutaneously over the A1 jeannette level ofthe left index finger. The patient's left arm was exsanguinated with an Esmarch bandage and a brachial tourniquet was inflated to 220mm Hg. An incision was made through an existing crease overlying the A1 jeannette of her left index finger. Subcutaneous spreading was performed in the [...] Synovium was debrided from the flexor tendons. The site was now copiously irrigated. The patient was asked to move her left index finger and she could do so freely without triggering or locking. The incision site was copiously irrigated. The skin was closed with 4-0 nylon suture. A sterile soft dressing was applied. The tourniquet was released with a total tourniquet time of 9 minutes. All digits rapidly became pink and warm with brisk capillary refill. She was transferred to the recovery room in stable condition. Estimated blood loss was minimal. IV replacement was 700 mL of crystalloid. She tolerated the procedure well without apparent complications. Attestation: Case Date: 06/16/2021 I was present and I participated during the entire procedure (does not need to include opening and closing). JEAN DIEHL MD 06/16/2021 * Brief Op Note - Jean Diehl MD - 06/16/2021 12:30 PM EST Brief Operative Note Patient Name: Ebonie Sol : [id number] MR#: [id number] Case Date: 06/16/2021 Surgeon: Surgeon(s) and Role: * Jean Diehl MD - Primary * Norris Alvarado MD - Resident Preoperative diagnosis: Left index trigger finger Postoperative diagnosis: Left index trigger finger Procedure(s) (LRB): TENDON SHEATH INCISION (TRIGGER FINGER) (WRVU 3.11) (Left) Anesthesia: MAC Complications: None Intake: 700cc crystalloid Output: Estimated Blood Loss: None Drains: None Specimens removed during surgery: None Disposition: aroused from sedation, and taken to the recovery room in a stable condition Condition: doing well without problems Attestation: Case Date: 06/16/2021 I was present and I participated during the entire procedure (does not need to include opening and closing). documented in this encounter Plan of Treatment Upcoming Encounters Date Type Department Care Team (Late st Contact Info) Description 06/05/2024 10:15 AM EST Office Visit [place] [address] Namita Bansal MD [facility] [place] [address] documented as of this encounter Goals Goal Patient Goal Type Associated Problems Recent Progress Patient-Stated? Author Exercise 3x per week (30 min per time) Exercise No Keila Arango CDE documented as of this encounter Procedures Procedure Name Priority Date/Time Associated Diagnosis Comments Incise Finger Tendon Sheath (79143) 06/16/2021 1:28 PM EST Trigger index finger of left hand TENDON SHEATH INCISION (TRIGGER FINGER) Routine 06/16/2021 12:08 PM EST Trigger index finger of left hand documented in this encounter Visit Diagnoses Diagnosis Trigger index finger of left hand Trigger finger (acquired) documented in this encounter Administered Medications Inactive Administered Medications - up to 3 most recent administrations Medication Order MAR Action Action Date Dose Rate Site acetaminophen (Tylenol) tablet 1,000 mg 1,000 mg, Oral, ONCE, 1 dose, On Tue06/16/21 at 1230, Administer with SIP of H2O only., Day of Surgery (Day of Procedure), Routine Given 06/16/2021 12:47 PM EST 1,000 mg clindamycin (Cleocin) 900 mg in dextrose 5% 50 mL infusion 900 mg, Intravenous, EVERY 8 HOURS, First dose on Tue06/16/21 at 1300, Until Discontinued, Administer over 30 Minutes, Indication for (Active or Suspected): Prophylaxis fentaNYL (pf) (50 mcg/mL) multi-dose injection 12.5 mcg 12.5 mcg, Intravenous, EVERY 5 MIN PRN, Starting on Tue06/16/21 at 1403, Until Tue06/16/21 at 1654, Pain, Mild to moderate pain (1-5 out of 10), Hold for respiratory rate less than 10 per minute. Maximum dose 200 mcg over one hour, including OR administration. If ordered with HYDROmorphone or morphine, give HYDROmorphone or morphine first and use fentaNYL for breakthrough pain., PACU Recovery, Routine fentaNYL (pf) (50 mcg/mL) multi-dose injection 25 mcg 25 mcg, Intravenous, EVERY 5 MIN PRN, Starting on Tue06/16/21 at 1403, Until Tue06/16/21 at 1654, Pain, Moderate to severe pain (6-10 out of 10), Hold for respiratory rate less than 10 per minute. Maximum dose 200 mcg over one hour, including OR administration. If ordered with HYDROmorphone or morphine, give HYDROmorphone or morphine first and use fentaNYL for breakthrough pain., PACU Recovery, Routine lactated ringers infusion 1,000 mL, at 100 mL/hr, Intravenous, CONTINUOUS, Starting on Tue06/16/21 at 1230, Until Tue06/16/21 at 1654, Day of Surgery (Day of Procedure) New Bag 06/16/2021 1:11 PM EST lidocaine (Xylocaine) 1% (10 mg/mL) injection 3 mg 3 mg (0.3 mL), Subcutaneous, ONCE PRN, 1 dose, Starting on Tue06/16/21 at 1209, Until Tue06/16/21 at 1654, for discomfort with PIV insertion, Day of Surgery (Day of Procedure), Routine naloxone (Narcan) (0.4 mg/mL) injection 0.04 mg 0.04 mg, Intravenous, EVERY 5 MIN PRN, 3 doses, Starting on Tue06/16/21 at 1403, Until Tue06/16/21 at 1654, Opioid Reversal, for respiratory rate less than 6 or unresponsive., May repeat every 5 minutes to increase respiratory rate. DO NOT exceed 0.12 mg total dose. Notify anesthesia immediately if administered., PACU Recovery, Routine ondansetron (pf) (Zofran) (2 mg/mL) injection 4 mg 4 mg, Intravenous, EVERY 30 MIN PRN, 2 doses, Starting on Tue06/16/21 at 1403, Until Tue06/16/21 at 1654, Nausea, Maximum total dose of 8 mg (including OR administration). If multiple antiemetics ordered, use ondansetron first and if ineffective use prochlorperazine second and if ineffective use promethazine, PACU Recovery sodium chloride 0.9 % (flush) (BD PosiFlush Normal Saline 0.9) flush 5-20 mL 5-20 mL, Intravenous, EVERY 1 MIN PRN, Starting on Tue06/16/21 at 1209, Until Tue06/16/21 at 1654, flush, Flush pertains to all indwelling lines. Flush per protocol found in the job aid using the link provided on this medication record., Day of Surgery (Day of Procedure), Routine documented in this encounter Active and Recently Administered Medications Times are shown in EST. Scheduled Medication Order 06/14/2021 06/15/2021 06/16/2021 acetaminophen (Tylenol) tablet 1,000 mg (COMPLETED) 1,000 mg, Oral, ONCE, 1 dose, On Tue06/16/21 at 1230, Administer with SIP of H2O only., Day of Surgery (Day of Procedure), Routine 1247 (Given - Provid er: Rayshawn Jaime RN) clindamycin (Cleocin) 900 mg in dextrose 5% 50 mL infusion 900 mg, Intravenous, EVERY 8 HOURS, First dose on Tue06/16/21 at 1300, Until Discontinued, Administer over 30 Minutes, Indication for (Active or Suspected): Prophylaxis 1300 (Due) Continuous Medication Order 06/14/2021 06/15/2021 06/16/2021 lactated ringers infusion 1,000 mL, at 100 mL/hr, Intravenous, CONTINUOUS, Starting on Tue06/16/21 at 1230, Until Tue06/16/21 at 1654, Day of Surgery (Day of Procedure) 1311 (New Bag - Prov ider: Milena Stacy CRNA)1355 (Anesthesia Volume Adjustment - Provider: Milena Stacy CRNA) PRN Medication Order 06/14/2021 06/15/2021 06/16/2021 fentaNYL (pf) (50 mcg/mL) multi-dose injection 12.5 mcg(Linked Group 1) 12.5 mcg, Intravenous, EVERY 5 MIN PRN, Starting on Tue06/16/21 at 1403, Until Tue06/16/21 at 1654, Pain, Mild to moderate pain (1-5 out of 10), Hold for respiratory rate less than 10 per minute. Maximum dose 200 mcg over one hour, including OR administration. If ordered with HYDROmorphone or morphine, give HYDROmorphone or morphine first and use fentaNYL for breakthrough pain., PACU Recovery, Routine fentaNYL (pf) (50 mcg/mL) multi-dose injection 25 mcg(Linked Group 1) 25 mcg, Intravenous, EVERY 5 MIN PRN, Starting on Tue06/16/21 at 1403, Until Tue06/16/21 at 1654, Pain, Moderate to severe pain (6-10 out of 10), Hold for respiratory rate less than 10 per minute. Maximum dose 200 mcg over one hour, including OR administration. If ordered with HYDROmorphone or morphine, give HYDROmorphone or morphine first and use fentaNYL for breakthrough pain., PACU Recovery, Routine lidocaine (Xylocaine) 1% (10 mg/mL) injection 3 mg 3 mg (0.3 mL), Subcutaneous, ONCE PRN, 1 dose, Starting on Tue06/16/21 at 1209, Until Tue06/16/21 at 1654, for discomfort with PIV insertion, Day of Surgery (Day of Procedure), Routine lidocaine-EPINEPHrine (1% - 1:100,000) injection (CANCELED) ONCE PRN, Starting on Tue06/16/21 at 1343, Until Tue06/16/21 at 1654, Intra-Operative (Intra-Procedure), Routine 1343 (Given - Provid er: Jean Diehl MD - Comment: buffered with sodium bicarbonate) naloxone (Narcan) (0.4 mg/mL) injection 0.04 mg 0.04 mg, Intravenous, EVERY 5 MIN PRN, 3 doses, Starting on Tue06/16/21 at 1403, Until Tue06/16/21 at 1654, Opioid Reversal, for respiratory rate less than 6 or unresponsive., May repeat every 5 minutes to increase respiratory rate. DO NOT exceed 0.12 mg total dose. Notify anesthesia immediately if administered., PACU Recovery, Routine ondansetron (pf) (Zofran) (2 mg/mL) injection 4 mg 4 mg, Intravenous, EVERY 30 MIN PRN, 2 doses, Starting on Tue06/16/21 at 1403, Until Tue06/16/21 at 1654, Nausea, Maximum total dose of 8 mg (including OR administration). If multiple antiemetics ordered, use ondansetron first and if ineffective use prochlorperazine second and if ineffective use promethazine, PACU Recovery sodium chloride 0.9 % (flush) (BD PosiFlush Normal Saline 0.9) flush 5-20 mL 5-20 mL, Intravenous, EVERY 1 MIN PRN, Starting on Tue06/16/21 at 1209, Until Tue06/16/21 at 1654, flush, Flush pertains to all indwelling lines. Flush per protocol found in the job aid using the link provided on this medication record., Day of Surgery (Day of Procedure), Routine Linked Groups Order Group 1: fentaNYL (pf) (50 mcg/mL) multi-dose injection 12.5 mcgJump to med 12.5 mcg, Intravenous, EVERY 5 MIN PRN, Starting on Tue06/16/21 at 1403, Until Tue06/16/21 at 1654, Pain, Mild to moderate pain (1-5 out of 10), Hold for respiratory rate less than 10 per minute. Maximum dose 200 mcg over one hour, including OR administration. If ordered with HYDROmorphone or morphine, give HYDROmorphone or morphine first and use fentaNYL for breakthrough pain., PACU Recovery, Routine Or fentaNYL (pf) (50 mcg/mL) multi-dose injection 25 mcgJump to med 25 mcg, Intravenous, EVERY 5 MIN PRN, Starting on Tue06/16/21 at 1403, Until Tue06/16/21 at 1654, Pain, Moderate to severe pain (6-10 out of 10), Hold for respiratory rate less than 10 per minute. Maximum dose 200 mcg over one hour, including OR administration. If ordered with HYDROmorphone or morphine, give HYDROmorphone or morphine first and use fentaNYL for breakthrough pain., PACU Recovery, Routine documented in this encounter Care Teams Pricing Director Relationship Specialty Start Date End Date Mitchell Yap MD [address] [place] [id number] PCP - General 05/19/10 07/17/23 documented as of this encounter
--- OUTSIDE RECORDS SUMMARY | 2024-04-18 13:14 | XMS_ITS | Encounter Summary ---
Author Organization [facility] [place] [address] Care Team Providers Care Disposal Man Name Role Phone Mitchell Yap MD Primary Care Provider [phone] Reason for Visit * Auth/Cert Specialty Diagnoses / Procedures Referred By Malka vera Referred To Contact Diagnoses Right long trigger finger Procedures PRO INCISE FINGER TENDON SHEATH TENDON SHEATH INCISION (TRIGGER FINGER) (WRVU 3.11) Referral ID Status Reason Start Date Expiration Date Visits Re quested Visits Authorized [id number] 1 Encounter Details Date Type Department Care Team (Late st Contact Info) Description 05/19/2021 9:35 AM EST - 05/19/2021 10:20 AM EST Surgery [place] [address] Jean Diehl MD [facility] [place] [address] TENDON SHEATH INCISION (TRIGGER FINGER) (WRVU 3.11) [...] Sign Reading Time Taken Comments Blood Pressure 131/64 05/19/2021 8:36 AM EST Pulse 70 05/19/2021 8:36 AM EST Temperature 36.5 ??C (97.7 ??F) 05/19/2021 8:36 AM ES T Respiratory Rate 18 05/19/2021 8:36 AM EST Oxygen Saturation 97% 05/19/2021 8:36 AM EST Inhaled Oxygen Concentration - - Weight 53.5 kg (118 lb) 05/19/2021 8:36 AM EST Height 149.9 cm (4' 11) 05/19/2021 8:36 AM EST Body Mass Index 23.83 05/19/2021 8:36 AM EST documented in this encounter Discharge Instructions * Discharge Instructions* Rosario Ayoub RN - 05/19/2021 9:16 AM EST Moderate Sedation You may have received medication before and/or during your procedure, which affects your judgement and reaction time. Do not drive, operate machinery, drink alcoholic beverages, or make any legal decisions for 24 hours. Be careful on stairs, as you may be unsteady on your feet. You may eat a regular diet as tolerated. Do not smoke if you are alone. IV site -- slight redness, or tenderness is normal, you can use a warm compress. If tenderness and redness increases or foul drainage occurs, please contact your M. D. Questions or problems after 5pm or on a weekend: Call the [facility] charge operator and ask for the physician dimension specification inspector covering for your doctor. * Patient Instructions* Brenda Hardy MD - 05/17/2021 7:52 PM EST Orthopaedic Hand Surgery Same Day [...] ?? Gentle exercises with any exposed fingers are encouraged and gently opening and closing the digits will keep the joints flexible. Specific activities and exercises will be discussed at your first postoperative visit. Elevation ?? Some swelling is expected after surgery. Elevation is the best remedies to reduce swelling and pain. Keep your hand properly elevated above the level of the heart i.e., fingers above palm, palm above the wrist, wrist above the elbow. Use pillows to increase elevation. ?? For proper elevation while walking around place [...] place. They will fall offon their own Keep your dressing on and dry [...] a stool softener or laxative as needed. Contact Information: During clinic hours M-F 8-4:30 please call [phone] If it is after 5:00PM on a weekday or a weekend and it is of an urgent nature please call [phone] and ask for the on-call orthopaedic resident. [...] Future Appointments Date Time Provider Department Center 06/02/2021 10:00 AM Namita Brar PA [facility] [place] [place] [address] [place] [address] 06/29/2021 11:20 AM Namita Brar PA [facility] [place] [address] [place] [address] 06/29/2021 1:45 PM Norris Campos MD [facility] 09/23/2021 10:30 AM Marga Leiva APRN [facility] documented in this encounter Medications at Time of Discharge Medication Sig Dispensed Refills Start Date End Date atorvastatin (Lipitor) 20 mg Tablet TAKE ONE TABLET BY MOUTH AT BEDTIME 02/24/2021 glucagon, Human Recombinant, 1 mg Recon Soln as needed. 10/19/2018 pantoprazole EC (Protonix) 40 mg Tablet, Delayed Release (E.C.) TAKE ONE TABLET BY MOUTH EVERY DAY 10/10/2020 zoledronic dfcy-zubnuxni-nwhgd (zoledronic Acid) 5 mg/100 mL IV solution Inject 5 mg into the vein. Yearly insulin needles, disposable, (BD ULTRA-FINE SHORT PEN NEEDLE) 31 gauge x 5/16 Needle 1 Box by [facility].(Non-Drug; Combo Route) route 4 times daily. Box of 100 1 each 3 06/26/2019 MAGNESIUM ORAL Take by mouth daily. acetaminophen (TYLENOL) 500 mg Tablet Take 1,000 mg by mouth every 6 hours as needed for Pain. ibuprofen (ADVIL;MOTRIN) 200 mg Tablet Take 600 mg by mouth daily as needed for Pain. Diabetic Supplies, Miscellan. [facility] CMN form faxed to [employer] 100 each 12 02/24/2017 Diabetic Supplies, Miscellan. [facility] PWO faxed to [facility] Medical 100 each 12 01/17/2017 ADVAIR DISKUS 100-50 mcg/dose Disk with Device Inhale 1 puff into the lungs daily. 11/23/2016 Diabetic Supplies, Miscellan. [facility] Form faxed to [facility] for insulin pump supplies 1 each 3 [...] TWO TIMES A DAY NEEDED 05/07/2021 02/21/2023 traMADoL (Ultram) 50 mg Tablet Take 1 tablet by mouth every 6 hours as needed for Pain. 8 tablet 05/19/2021 06/16/2021 insulin lispro (humaLOG) 100 unit/mL SolutionIndications: Type 1 diabetes mellitus without complication, with mcfp current use of insulin pump INJECT 40-50 [...] as of this encounter Progress Notes * Nancy Yung RN - 05/19/2021 10:56 AM EST Discharge instructions and medications reviewed with patient and Issa. All questions answered and written copy sent home with patient. Patient ambulated to car for discharge accompanied by OSCstaff member. documented in this encounter H&P Notes * Jean Diehl MD - 05/19/2021 9:42 AM EST PRE-OPERATIVE HISTORY AND PHYSICAL for ADMISSION, OBSERVATION OR PROCEDURE Date of : 1955 Age: 66 y.o. PCP: Mitchell Yap MD Presenting Diagnosis/Chief Complaint: right long finger trigger finger History of Present Illness: Ebonie Sol is a 66 y.o. female who presents for pre-operative examination. Please see PUNEET Cui's note for full details of the patient's [...] LIGAMENT performed by Jean Diehl MD at [facility] ??? PRO INCISE FINGER TENDON SHEATH Left 06/10/2016 TENDON SHEATH INCISION (TRIGGER FINGER) (WRVU 3.11) performed by Jean Diehl MD at [facility] ??? PRO INCISE FINGER TENDON SHEATH Left 09/26/2018 TENDON SHEATH INCISION (TRIGGER FINGER) (WRVU 3.11) performed by Jean Diehl MD at [facility] ??? PRO INCISE FINGER TENDON SHEATH Right 10/10/2018 TENDON SHEATH INCISION (TRIGGER FINGER) (WRVU 3.11) performed by Jean Diehl MD at [facility] Home Medications: Medications Prior to Admission Medication Sig Dispense Refill Last Dose ??? atorvastatin (Lipitor) 20 mg Tablet TAKE ONE TABLET BY MOUTH AT BEDTIME 05/18/2021 at Unknown time ??? insulin lispro (humaLOG) 100 unit/mL Solution INJECT 40-50 UNITS SUBCUTANEOUSLY CONTINUOUS DAILY VIA PUMP. DX:E10.69 50 mL 3 05/12/2021 at Unknown time ??? pantoprazole EC (Protonix) 40 mg Tablet, Delayed Release (E.C.) TAKE ONE TABLET BY MOUTH EVERY DAY 05/18/2021 at Unknown time ??? acetaminophen (TYLENOL) 500 mg Tablet Take 1,000 mg by mouth every 6 hours as needed for Pain. 05/12/2021 at Unknown time ??? ibuprofen (ADVIL;MOTRIN) 200 mg Tablet Take 600 mg by mouth daily as needed for Pain. Past Month at Unknown time ??? lisinopril (PRINIVIL;ZESTRIL) 20 mg Tablet Take 1 tablet by mouth daily. 30 tablet 05/18/2021 at Unknown time ??? glucagon, Human Recombinant, 1 mg Recon Soln PRN For severe hypoglycemia More than a month at Unknown time ??? Contour Next Test Strips Strip TEST 8 TIMES A DAY. DX: E10.9 700 strip 3 ??? zoledronic tppd-kmhboapt-sajwr (zoledronic Acid) 5 mg/100 mL IV solution Inject 5 mg into the vein. Yearly More than a month at Unknown time ??? insulin needles, disposable, (BD ULTRA-FINE SHORT PEN NEEDLE) 31 gauge x 5/16 Needle 1 Box by [facility].(Non-Drug; Combo Route) route 4 times daily. Box of 100 1 each 3 ??? insulin glargine (LANTUS SOLOSTAR U-100 INSULIN) 100 unit/mL (3 mL) pen Inject 10 Units subcutaneously daily. (Patient not taking: Reported on 07/14/2020) 15 mL 3 ??? MAGNESIUM ORAL Take by mouth daily. ??? Diabetic Supplies, Miscellan. [facility] CMN form faxed to [employer] 100 each 12 ??? Diabetic Supplies, Miscellan. [facility] PWO faxed to [facility] Medical 100 each 12 ??? ADVAIR DISKUS 100-50 mcg/dose Disk with Device Inhale 1 puff into the lungs daily. More than a month at Unknown time ??? Diabetic Supplies, Miscellan. [facility] Form faxed to [facility] for insulin pump supplies 1 each 3 ??? multivitamin with minerals (THERA-M) 9-0.4 mg Tablet Take 1 tablet by mouth daily. Allergies: Allergies Allergen Reactions ??? Penicillins Anaphylaxis ??? Codeine Nausea And Vomiting ??? Prochlorperazine ??? Reclast [Zoledronic Mtxb-Nhtznhnz-Prwio] VERTIGO ??? Naproxen Family History: Non contributory Family History Problem Relation Age of Onset ??? Cancer Sister Review of Systems: as per HPI Physical Exam: VITALS: Temperature Temp: 36.5 ??C (97.7 ??F) Heart Rate Heart Rate: 70 Blood Pressure BP: 131/64 Respiratory Rate Resp: 18 SpO2 SpO2: 97 % No intake/output data recorded. General: alert, appears stated age and cooperative Pulmonary: Normal, equal, clear breath sounds bilaterally and no crepitus Cardiovascular: Regular rate and rhythm Assessment and Plan: 66 y.o. female with the above problem, plan to proceed to OR with Dr. Diehl for right long finger trigger finger release. I examined Ebonie Sol and I agree with Dr. Hardy's note. 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 She is going to the OR today for release of her stenosing tenosynovitis of her right long finger. Her questions were solicited and answered prior to surgery today. JEAN DIEHL MD documented in this encounter Miscellaneous Notes * Op Note - Jean Diehl MD - 05/19/2021 10:01 AM EST [facility] [place] [place] Operative Note Patient Name: Ebonie Sol : [id number] MR#: [id number] Case Date: 05/19/2021 Surgeon: Surgeon(s) and Role: * Jean Diehl MD - Primary * Brenda Hardy MD - Resident Preoperative diagnosis: Right long trigger finger Postoperative diagnosis: Right long trigger finger Procedure Performed: A1 jeannette release right long finger. Anesthesia: Local with sedation. Operative Indication: The patient is a 66 y.o.-year-old Female with triggering and locking at the A1 jeannette level of Her right long finger. It is stuck in flexion with a 40 degree PIP flexion posture. She was brought to the operating room for A1 jeannette release. Summary of Procedure: After 900mg of intravenous clindamycin was administered, the patient's right upper extremity was prepped with a Hibiclens scrub and a ChloraPrep. her arm was draped in a sterilefashion. A preoperative timeout was performed as per [facility] [place] [place] protocol. Then 2 mL of 1% lidocaine with epinephrine buffered with sodium bicarbonate was injected subcutaneously over the A1 jeannette level ofthe right long finger. The patient's right arm was exsanguinated with an Esmarch bandage and a brachial tourniquet was inflated to 225mm Hg. An incision was made through an existing crease overlying the A1 jeannette of her right long finger. Subcutaneous spreading was performed in the [...] The patient was asked to move her right long finger and she could do so freely without triggering or locking. Her PIP contracture was significantly improved at this point. The incision site was copiously irrigated. The skin was closed with 4-0 nylon suture. A sterile soft dressing was applied. The tourniquet was released with a total tourniquet time of 10 minutes. All digits rapidly became pink and warm with brisk capillary refill. She was transferred to the recoveryroom in stable condition. Estimated blood loss was minimal. IV replacement was 400 mL of crystalloid. She tolerated the procedure well without apparent complications. Attestation: Case Date: 05/19/2021 I was present and I participated during the entire procedure (does not need to include opening and closing). JEAN DIEHL MD 05/19/2021 * Brief Op Note - Jean Diehl MD - 05/19/2021 9:39 AM EST Brief Operative Note Patient Name: Ebonie Sol : [id number] MR#: [id number] Case Date: 05/19/2021 Surgeon: Surgeon(s) and Role: * Jean Diehl MD - Primary * Brenda Hardy MD - Resident Preoperative diagnosis: Right long trigger finger Postoperative diagnosis: Right long trigger finger Procedure(s) (LRB): TENDON SHEATH INCISION (TRIGGER FINGER) (WRVU 3.11) (Right) Anesthesia: MAC Complications: None Intake: 400cc crystalloid Output: Estimated Blood Loss: None Drains: None Specimens removed during surgery: None Disposition: aroused from sedation, and taken to the recovery room in a stable condition Condition: doing well without problems Attestation: Case Date: 05/19/2021 I was present and I participated during the entire procedure (does not need to include opening and closing). documented in this encounter Plan of Treatment Upcoming Encounters Date Type Department Care Team (Late st Contact Info) Description 06/05/2024 10:15 AM EST Office [place] [id number] Namita Bansal MD [facility] [place] [address] documented as of this encounter Goals Goal Patient Goal Type Associated Problems Recent Progress Patient-Stated? Author Exercise 3x per week (30 min per time) Exercise Keila Espinoza CDE documented as of this encounter Procedures Procedure Name Priority Date/Time Associated Diagnosis Comments Incise Finger Tendon Sheath (98700) 05/19/2021 9:51 AM EST Trigger middle finger of right hand TENDON SHEATH INCISION (TRIGGER FINGER) Routine 05/19/2021 8:29 AM EST Trigger middle finger of right hand documented in this encounter Visit Diagnoses Diagnosis s/p A1 jeannette release right long finger with Dr. Diehl 05/19/2021 Trigger finger (acquired) Trigger middle finger of right hand Trigger finger (acquired) documented in this encounter Administered Medications Inactive Administered Medications - up to 3 most recent administrations Medication Order MAR Action Action Date Dose Rate Site acetaminophen (Tylenol) tablet 1,000 mg 1,000 mg, Oral, ONCE, 1 dose, On Tue05/19/21 at 0845, Maximum dose of acetaminophen is 4000 mg from all sources in 24 hours. When ordered for pain, acetaminophen should be given even when other ordered pain medications are indicated. , Day of Surgery (Day of Procedure), Routine Given 05/19/2021 10:32 AM EST 1,000 mg lidocaine-EPINEPHrine (1% - 1:100,000) injection ONCE PRN, Starting on Tue05/19/21 at 1002, Until Tue05/19/21 at 1301, Intra-Operative (Intra-Procedure), Routine Given 05/19/2021 10:02 AM EST 2 mLs 19- Surgical Site documented in this encounter Active and Recently Administered Medications Times are shown in EST. Scheduled Medication Order 05/17/2021 05/18/2021 05/19/2021 acetaminophen (Tylenol) tablet 1,000 mg (COMPLETED) 1,000 mg, Oral, ONCE, 1 dose, On Tue05/19/21 at 0845, Maximum dose of acetaminophen is 4000 mg from all sources in 24 hours. When ordered for pain, acetaminophen should be given even when other ordered pain medications are indicated. , Day of Surgery (Day of Procedure), Routine 1032 (Given - Provid er: Nancy Yung RN) clindamycin (Cleocin) (150 mg/mL) injection 900 mg (COMPLETED) 900 mg, Intravenous, ONCE, 1 dose, On Tue05/19/21 at 0945, Prior to incision in OR, Routine, Indication for (Active or Suspected): Prophylaxis 0956 (Given - Provid er: Tita Griffith CRNA) Continuous Medication Order 05/17/2021 05/18/2021 05/19/2021 lactated ringers infusion (CANCELED) 1,000 mL, at 100 mL/hr, Intravenous, CONTINUOUS, Starting on Tue05/19/21 at 0845, Until Tue05/19/21 at 1056, Day of Surgery (Day of Procedure) 0934 (New Bag - Prov ider: Tita Griffith CRNA)1003 (Anesthesia Volume Adjustment - Provider: Tita Griffith CRNA) PRN Medication Order 05/17/2021 05/18/2021 05/19/2021 lidocaine-EPINEPHrine (1% - 1:100,000) injection (CANCELED) ONCE PRN, Starting on Tue05/19/21 at 1002, Until Tue05/19/21 at 1301, Intra-Operative (Intra-Procedure), Routine 1002 (Given - Provid er: Jean Diehl MD - Comment: Mixed 1:10 with 8.4% sodium bicarbonate) traMADoL (Ultram) tablet 50 mg 50 mg, Oral, EVERY 6 HOURS PRN, Starting on Tue05/19/21 at 0928, Until Tue05/19/21 at 1301, Pain, Routine No Frequency Medication Order 05/17/2021 05/18/2021 05/19/2021 clindamycin (Cleocin) 900 mg/50 mL infusion 1 dose, Starting on Tue05/19/21 at 0947, Until Tue05/19/21 at 1301, Rosario Ayoub: cabinet override 1000 (Due) documented in this encounter Care Teams Disposal Man Relationship Specialty Start Date End Date Mitchell Yap MD [address] [place] [address] PCP - General 05/19/10 07/17/23 documented as of this encounter
--- OUTSIDE RECORDS SUMMARY | 2024-04-18 13:14 | XMS_ITS | Encounter Summary ---
[place] [address] Care Team Providers Care Tester Vibrator Equipment Name Role Phone Mitchell Yap MD Primary Care Provider [phone] Encounter Details Date Type Department Care Team (Late st Contact Info) Description 05/07/2021 [place] [phone] Blaze Lora RN Social History Tobacco Use Types Packs/Day [...] encounter Miscellaneous Notes * Telephone Encounter - Blaze Lora RN - 05/08/2021 9:44 AM EST Images from the original note were not included. May 08, 2021 Namita Cordero to [place] 9:37 AM Called [employer] and they stated right now the only thing that is needed is office notes for a PA. Patient currently has her April order and any other orders are too soon to fill. Office notes have been sent * Telephone Encounter - Blaze Lora RN - 05/07/2021 3:09 PM EST Patient left voicemail that she has received multiple messages from [employer] that they need refills of the prescriptions for her pump and sensor supplies. She is hoping we can send these in to [employer] soon. documented in this encounter Plan of Treatment Upcoming Encounters Date Type Department Care Team (Late st Contact Info) Description 06/05/2024 10:15 AM EST Office [place] [address] Namita Bansal MD [facility] [place] [address] documented as of this encounter Goals Goal Patient Goal Type Associated Problems Recent Progress Patient-Stated? Author Exercise 3x per week (30 min per time) Exercise No Keila Arango CDE documented as of this encounter Visit Diagnoses Not on filedocumented in this encounter Care Teams Tester Vibrator Equipment Relationship Specialty Start Date End Date Mitchell Yap MD [address] [place] [address] PCP - General 05/19/10 07/17/23 documented as of this encounter
--- OUTSIDE RECORDS SUMMARY | 2024-04-18 13:14 | XMS_ITS | Encounter Summary ---
Author Organization [facility] [place] [address] Care Team Providers Care Ribbon Lapper Tender Name Role Phone Mitchell Yap MD Primary Care Provider [phone] Reason for Visit * Reason Onset Date Comments Medication Refill 07/15/2021 Encounter Details Date Type Department Care Team (Late st Contact Info) Description 07/15/2021 Refill [place] [address] Norris Campos MD [facility] [place] [address] Social History Tobacco Use Types Packs/Day Years [...] 10:15 AM EST Office [place] [address] Namita Bansal MD [facility] [place] [address] documented as of this encounter Goals Goal Patient Goal Type Associated Problems Recent Progress Patient-Stated? Author Exercise 3x per week (30 min per time) Exercise No Keila Arango, VELMAE documented as of this encounter Visit Diagnoses Not on filedocumented in this encounter Care Teams Ribbon Lapper Tender Relationship Specialty Start Date End Date Mitchell Yap MD [address] [place] [id number] PCP - General 05/19/10 07/17/23 documented as of this encounter
--- OUTSIDE RECORDS SUMMARY | 2024-04-18 13:14 | XMS_ITS | Encounter Summary ---
Author Organization [facility] [place] [address] Care Team Providers Care Brokerage Office Manager Name Role Phone Mitchell Yap MD Primary Care Provider [phone] Reason for Visit * Auth/Cert Specialty Diagnoses / Procedures Referred By Malka vera Referred To Contact Diagnoses Right long trigger finger Procedures PRO INCISE FINGER TENDON SHEATH TENDON SHEATH INCISION (TRIGGER FINGER) (WRVU 3.11) Referral ID Status Reason Start Date Expiration Date Visits Re quested Visits Authorized [id number] 1 1 Encounter Details Date Type Department Care Team (Latest Contact Info) Description 05/19/2021 8:14 AM EST - 05/19/2021 11:01 AM EST Hospital Encounter [place] [address] Jean Diehl MD [facility] [place] [address] Trigger middle finger of right hand Discharge Disposition: Home Social History Tobacco [...] Sign Reading Time Taken Comments Blood Pressure 95/56 05/19/2021 10:45 AM EST Pulse 66 05/19/2021 10:45 AM EST Temperature 36.2 ??C (97.2 ??F) 05/19/2021 10:[address] Respiratory Rate 16 05/19/2021 10:23 AM EST Oxygen Saturation 100% 05/19/2021 10:45 AM EST Inhaled Oxygen Concentration - - [...] 5pm or on a weekend: Call the [facility] screwdown operator and ask for the physician environmental communications specialist covering for your doctor. * Patient Instructions* [...] During clinic hours M-F 8-4:30 please call [phone] If it is after 5:00PM on a weekday or a weekend and it is of an urgent nature please call [phone] and ask for the on-call orthopaedic resident. [...] Center 06/02/2021 10:00 AM Namita Brar PA [facility] [address] [place] [address] 06/29/2021 11:20 AM Namita Brar PA [facility] [address] [place] [address] 06/29/2021 1:45 PM Norris Campos MD [facility] 09/23/2021 10:30 AM Marga Leiva APRN [facility] documented in this encounter Medications at Time of Discharge Medication Sig Dispensed Refills Start Date End Date atorvastatin (Lipitor) 20 mg Tablet TAKE ONE TABLET BY MOUTH AT BEDTIME 02/24/2021 glucagon, Human Recombinant, 1 mg Recon Soln as needed. 10/19/2018 pantoprazole EC (Protonix) 40 mg Tablet, Delayed Release (E.C.) TAKE ONE TABLET BY MOUTH EVERY DAY 10/10/2020 zoledronic pzrz-pgfzeydp-xlzoi (zoledronic Acid) 5 mg/100 mL IV solution Inject 5 mg into the vein. Yearly insulin needles, disposable, (BD ULTRA-FINE SHORT PEN NEEDLE) 31 gauge x 5/16 Needle 1 Box by [facility].(Non-Drug; Combo Route) route 4 times daily. Box of 100 1 each 3 06/26/2019 MAGNESIUM ORAL Take by mouth daily. acetaminophen (TYLENOL) 500 mg Tablet Take 1,000 mg by mouth every 6 hours as needed for Pain. ibuprofen (ADVIL;MOTRIN) 200 mg Tablet Take 600 mg by mouth daily as needed for Pain. Diabetic Supplies, Miscellan. [facility] CMN form faxed to [employer] 100 each 12 02/24/2017 Diabetic Supplies, Miscellan. [facility] PWO faxed to [facility] Medical 100 each 12 01/17/2017 ADVAIR DISKUS 100-50 mcg/dose Disk with Device Inhale 1 puff into the lungs daily. 11/23/2016 Diabetic Supplies, Miscellan. [facility] Form faxed to [facility] diabetes for insulin pump supplies 1 each 3 [...] Type 1 diabetes mellitus without complication, with rn long term care current use of insulin pump INJECT 40-50 [...] LIGAMENT performed by Jean Diehl MD at [facility] ??? PRO INCISE FINGER TENDON SHEATH Left 06/10/2016 TENDON SHEATH INCISION (TRIGGER FINGER) (WRVU 3.11) performed by Jean Diehl MD at [facility] ??? PRO INCISE FINGER TENDON SHEATH Left 09/26/2018 TENDON SHEATH INCISION (TRIGGER FINGER) (WRVU 3.11) performed by Jean Diehl MD at [facility] ??? PRO INCISE FINGER TENDON SHEATH Right 10/10/2018 TENDON SHEATH INCISION (TRIGGER FINGER) (WRVU 3.11) performed by Jean Diehl MD at [facility] Home Medications: Medications Prior to Admission [...] DX: E10.9 700 strip 3 ??? zoledronic yyck-vhtsqepc-gyyfq (zoledronic Acid) 5 mg/100 mL IV solution Inject 5 mg into the vein. Yearly More than a month at Unknown time ??? insulin needles, disposable, (BD ULTRA-FINE SHORT PEN NEEDLE) 31 gauge x 5/16 Needle 1 Box by [facility].(Non-Drug; Combo Route) route 4 times daily. Box of 100 1 each 3 ??? insulin glargine (LANTUS SOLOSTAR U-100 INSULIN) 100 unit/mL (3 mL) pen Inject 10 Units subcutaneously daily. (Patient not taking: Reported on 07/14/2020) 15 mL 3 ??? MAGNESIUM ORAL Take by mouth daily. ??? Diabetic Supplies, Miscellan. [facility] CMN form faxed to [employer] 100 each 12 ??? Diabetic Supplies, Miscellan. [facility] PWO faxed to [facility] Medical 100 each 12 ??? ADVAIR DISKUS 100-50 mcg/dose Disk with Device Inhale 1 puff into the lungs daily. More than a month at Unknown time ??? Diabetic Supplies, Miscellan. [facility] Form faxed to [facility] diabetes for insulin pump supplies 1 each 3 ??? multivitamin with minerals (THERA-M) 9-0.4 mg Tablet Take 1 tablet by mouth daily. Allergies: Allergies Allergen Reactions ??? Penicillins Anaphylaxis ??? Codeine Nausea And Vomiting ??? Prochlorperazine ??? Reclast [Zoledronic Flvr-Zyuzyqjb-Nuejg] VERTIGO ??? Naproxen Family History: Non contributory [...] finger trigger finger release. I examined Ebonie Jes NaylorEbenezer and I agree with Dr. Borsinger's note. She has a 40 degree PIP [...] Diehl MD - 05/19/2021 10:01 AM EST [facility] Operative Note Patient Name: Ebonie Sol : [id number] MR#: [id number] Case Date: 05/19/2021 Surgeon: Surgeon(s) and Role: [...] A preoperative timeout was performed as per [facility] protocol. Then 2 mL of 1% lidocaine [...] Operative Note Patient Name: Ebonie Sol : [id number] MR#: [id number] Case Date: 05/19/2021 Surgeon: Surgeon(s) and Role: [...] 10:15 AM EST Office [place] [address] Namita Bansal MD [facility] [place] [address] documented as of this encounter Goals Goal Patient Goal Type Associated Problems Recent Progress Patient-Stated? Author Exercise 3x per week (30 min per time) Exercise No Keila Arango CDE documented as of this encounter Procedures Procedure Name Priority Date/Time Associated Diagnosis Comments Incise Finger Tendon Sheath (58310) 05/19/2021 9:51 AM EST Trigger middle finger [...] Given 05/19/2021 10:32 AM EST 1,000 mg documented in this encounter Active and Recently [...] (Due) documented in this encounter Care Teams Brokerage Office Manager Relationship Specialty Start Date End Date Mitchell Yap MD [address] [place] [address] PCP - General 05/19/10 07/17/23 documented as of this encounter
--- OUTSIDE RECORDS SUMMARY | 2024-04-18 13:14 | XMS_ITS | Encounter Summary ---
Author Organization [facility] [place] [address] Care Team Providers Care All Around Patternmaker Name Role Phone Mitchell Yap MD Primary Care Provider [phone] Reason for Visit * Occupational Therapy (Routine) - Closed Specialty Diagnoses / Procedures Referred By Contact Referred To Contact Occupational Therapy / Orthopaedics Diagnoses Trigger thumb of left hand Trigger thumb of left hand Namita Brar PA [facility] [place] [address] [facility] Orthopa[facility]ics [address] [place] [phone] Referral ID Status Reason Start Date Expiration Date V isits Requested Visits Authorized [id number] Closed Evaluate and Treat 06/29/2021 06/29/2022 12 12 Encounter Details Date Type Department Care Team (Late st Contact Info) Description 06/29/2021 11:45 AM EST Office [place] [address] Wong Bhatia, OT [facility] PHYSICAL MEDICINE & [place] [address] A1 jeannette release left index finger 06/16/21 [...] as of this encounter Miscellaneous Notes * Initial Evaluation - Wong Bhatia, OT - 06/29/2021 11:45 AM EST OCCUPATIONAL THERAPY ORTHOTIC CLINIC VISIT Certification Period: 06/29/21-07/29/21 Referral Source: Namita Johnson MD Follow-up: PRN Total Treatment time: 20 Minutes Timed Code Treatment Time: 20 minutes OCCUPATIONAL PROFILE: Ebonie Sol is a 66 y.o. year old Ambidextrous hand dominant female who had a LEFT index finger trigger finger release. She had a recent right hand trigger finger release surgery procedure as well, with good recovery. She is seen by the ortho provider today with sutures removed. She reports soreness, stiffness, swelling, with less progression compared to her right hand post op. She also is helping her retired who had a recent fall with a lower leg fracture, which has increased her daily home duties compared to normal at this post op time frame. Ebonie Sol is referred to Occupational Therapy for evaluation and treatment to include fabrication of a custom orthosis. Patient presents today alone. Date of onset of symptoms: Ongoing for sometime with trigger finger symptoms Date of surgery: 06/16/21 Pertinent History and/or Co-morbidities: 1. A1 jeannette release left index finger 06/16/21 Dr. 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 Global Mental Function: With gross screening of patient???s global mental functions, patient demonstrates orientation to person, place, time, and situation. Patient???s affect/behavior is appropriateand cooperative today. Disabilities of the Arm, Shoulder, and Hand (DASH): THE DISABILITIES OF THE ARM,SHOULDER AND HAND SCORE (DASH) 06/25/2021 If you play more than one sport or instrument (or play both), please answer with respect to that activity which is most important to you. Do you currently play a sport or an instrument? No Standardized measurement of functional limitation related to an upper extremity disability, using 0-100 scale indicating percent of perceived functional impairment. Pain: (Assessed using the Visual Analog Pain Scale) At Rest: 07/06 With Activity: 10/04 Treatment Today: Therex: Strength/Endurance/ROM (30237) 20 min Educated patient in etiology and biomechanics as related to patient's symptoms Fitted with coban to address swelling - recommended she try at night time Range of Motion Exercises: Hook fist Composite fist Straight fist Stretch for PIP extension with MP's flexed Stretch for finger extension with hand flat on table top and gentle pressure at proximal phalanx CLINICAL DECISION MAKING: Ebonie Sol Has mild finger swelling, mild to moderate stiffness and mild pain. She is able to produce a hook fist, near composite fist, and tighter straight fist. She felt a click sensation at her dorsal PIP joint with coban in place and attempt to flex finger. Recommended she use for night time to assist with swelling and stiffness. Ebonie Sol is able to independently verbalize and demonstrate the recommended home program following instructions today. Ebonie Sol has good potential for gains with therapy/home program use. Patient knows to call with anyquestions or concerns. Short Term Goals (to be met by end of the visit today): Date Goal Met: Today 2. Ebonie Sol will be independent with home exercises as evident with demonstration in therapy. Goal Status: Meets PLAN: one time visit for exercise instruction and edema management. She is to follow up with ortho clinic as needed. (X) Ebonie Sol participated in the evaluation, collaborated on treatment goals, and agrees to the treatment plan. documented in this encounter Plan of Treatment Upcoming Encounters Date Type Department Care Team (Late st Contact Info) Description 06/05/2024 10:15 AM EST Office [place] [address] Namita Bansal MD [facility] [place] [address] Scheduled Referrals Name Type Priority Associated Diagnoses [...] (acquired) documented in this encounter Care Teams All Around Patternmaker Relationship Specialty Start Date End Date Mitchell Yap MD [address] [place] [id number] PCP - General 05/19/10 07/17/23 documented as of this encounter
--- OUTSIDE RECORDS SUMMARY | 2024-04-18 13:14 | XMS_ITS | Encounter Summary ---
Author Organization [facility] [place] [address] Care Team Providers Care Flatwork Feeder Name Role Phone Mitchell Yap MD Primary Care Provider [phone] Reason for Visit * Reason Onset Date Comments Pre Procedure Call 04/06/2021 Encounter Details Date Type Department Care Team (Late st Contact Info) Description 04/06/2021 Telephone [place] [phone] Laith Diehl MD [facility] [place] [address] Pre Procedure Call Social History Tobacco Use Types Packs/Day Years [...] encounter Miscellaneous Notes * Telephone Encounter - Deondre Youngblood - 04/06/2021 1:17 PM EDT Ebonie is calling back to check on the status of scheduling her surgery for her left trigger finger.Please call her back at cell [phone] Or call home number [phone] - ok to leave a message. documented in this encounter Plan of Treatment Upcoming Encounters Date Type Department Care Team (Late st Contact Info) Description 06/05/2024 10:15 AM EST Office [place] [address] Namita Bansal MD [facility] [place] [address] documented as of this encounter Goals Goal Patient Goal Type Associated Problems Recent Progress Patient-Stated? Author Exercise 3x per week (30 min per time) Exercise No Keila Arango CDE documented as of this encounter Visit Diagnoses Not on filedocumented in this encounter Care Teams Flatwork Feeder Relationship Specialty Start Date End Date Mitchell Yap MD [address] [place] [id number] PCP - General 05/19/10 07/17/23 documented as of this encounter
--- OUTSIDE RECORDS SUMMARY | 2024-04-18 13:14 | XMS_ITS | Encounter Summary ---
Author Organization [facility] [place] [address] Care Team Providers Care Animal Rehabilitator Name Role Phone Mitchell Yap MD Primary Care Provider [phone] Encounter Details Date Type Department Care Team (Late st Contact Info) Description 07/01/2021 Telephone [place] [phone] Namita Brar PA [facility] [address] [place] [address] Social History Tobacco Use Types Packs/Day Years [...] encounter Miscellaneous Notes * Telephone Encounter - Lin Betancourt - 07/01/2021 12:50 PM EST Called patient re: referral for trigger thumb. Patient states she has never had an issue with that and therefore declined an appointment. She did, however, ask for a Return to Work Letter. She would like it to state; Return to Work 07/06/21 Work 24 hours a weeks for 2-3 weeks, while doing exercises. When comfortable, return to 30 hours a week. Please write and place in her [facility] chart. Call when completed. Thank you. PH: [phone] documented in this encounter Plan of Treatment Upcoming Encounters Date Type Department Care Team (Late st Contact Info) Description 06/05/2024 10:15 AM EST Office [place] [address] Namita Bansal MD [facility] [place] [address] documented as of this encounter Goals Goal Patient Goal Type Associated Problems Recent Progress Patient-Stated? Author Exercise 3x per week (30 min per time) Exercise No Keila Arango, CHRISTIANO documented as of this encounter Visit Diagnoses Not on filedocumented in this encounter Care Teams Animal Rehabilitator Relationship Specialty Start Date End Date Mitchell Yap MD [address] [place] [address] PCP - General 05/19/10 07/17/23 documented as of this encounter
--- OUTSIDE RECORDS SUMMARY | 2024-04-18 13:14 | XMS_ITS | Encounter Summary ---
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 pump Social [...] Time Taken Comments Blood Pressure 124/58 03/25/2021 9:07 AM EDT Pulse 67 03/25/2021 9:07 AM EDT Temperature 36.2 ??C (97.1 ??F) 03/25/2021 9:07 AM ED T Respiratory Rate - - Oxygen Saturation 100% 03/25/2021 9:07 AM EDT Inhaled Oxygen Concentration - - Weight 58.6 kg (129 lb 3.2 oz) 03/25/2021 9:07 A M EDT Height 149.9 cm (4' 11) 03/25/2021 9:07 AM EDT Body Mass Index 26.1 03/25/2021 9:07 AM EDT documented in this encounter Patient Instructions * Patient Instructions* Marga Leiva APRN - 03/25/2021 9:00 AM EDT Plan: Turn up your pump alarm to alert you to low blood sugars Change sets every 3 days. Follow up to establish care with podiatry closer to your home Check with PCP on pneumonia vaccine status and for PT referral for strength training and leg pains --Medications: No changes to your basal settings. Focus on administering your meal time bolus 15 minutes before eating Be aware of carb counts in foods you do not regularly consume --Monitoring: with CGM check BGs fasting in am, before each meal, 1-2 hours after meals and at bedtime. Target fasting blood sugars 90-140 pre-meal during daytime 90-150 1-2 h post meal below 180 Target A1c <7% for this patient. --Patient will keep log of blood glucose and insulin used for review at next visit or bring CGM reader for download --Diet and exercise: low fat/controlled carb diet & exercise as tolerated to keep weight down. --Prevention: started on statin 3 weeks ago, plans to update flu vaccine in May --F/U lab for: A1C, u alb.cre, LDL and creatinine --RTC: Next visit in 6 months. documented in this encounter Progress Notes * Marga Leiva APRN - 03/25/2021 9:00 AM EDT Images from the original note were not included. Date of Visit: 03/25/2021 Reason for Visit: Follow-up diabetes Brief History: Ebonie Sol is a 66 y.o. female with PMH significant for T1DM. Notable medical comorbidities: hypoglycemia unawareness, HTN. She presents today for diabetes follow up management and to provide a review of rat exterminator diabetes care. Interval Hx: She feels she is not as attentive as she used to be to her diabetes. She states she has been having hypoglycemia all times of the day. She does not feel her sensors last a full seven days. Osteoporosis being managed through PCP, receiving zolendronic acid. Ortho appt today for trigger fingers. 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 Plan from previous visit note: Andres 11/03/2020 1) Diabetes Mellitus Type 1, controlled Recent glucose avg correlates to A1c 7-7.5% I provided instructions for her to upload her pump data to [employer] for me to review. She will senda message to let me know when she has done this. ?? She will get routine labs drawn in near future at [facility] ?? CV health: Given that she has had DM1 for >20 years, per Endo Society guidelines I strongly suggested that she start a statin. She wanted to think about it and preferred not to start it right now. ? Please do not hesitate to contact me with questions Pump download review: Diabetes History: Most recent A1C: 3 weeks ago 6.7% at PCP office Recent Labs 07/14/20 1218 HA1C 7.7* Ebonie Sol diabetes diagnosed age 57 years old. Current Diabetes Medications: humalog C Insulin administration site: pump/abdomen Compliance with insulin: good Glucose Monitoring: Sensor: guardian Justification for testing > 3x a day to prevent severe hyperglycemia, widely fluctuating BS, overnight hypoglycemia Meter uploaded today: yes Duration of need: lifetime Pump/Sensor information: 670 G pump, guardain CGM Frequency of set changes: Every 4.3 Days Hypoglycemia Awareness: No awareness, has glucagon BG testing > than 5 if having hypoglycemia occurrances Hyperglycemia: History of DKA: Diabetes Complications Review: Eyes: No retinopathy, no history of laser therapy and/or injections Kidneys: No history of microalbuminuria, proteinuria, decreased kidney function, CKD, dialysis or kidney transplant Feet: Normal shape, no history of foot ulcers, denies burning/numbness/tingling, no previous decreased sensation to monofilament testing, no prior amputations, Autonomic: No history of gastroparesis, problems emptying bladder, inability to detect hypoglycemia, or tachycardia Cardiac: No history of CAD, cardiac stents, cardiac bypass surgery,CHF, PVD, CVA Diabetes Prevention: Last eye exam: UTD Regular formal service waiter: no Special shoes: Dental visits regular: yes Flu vaccine: 2019 Pneumovax and Prevnar: check with PCP Kidney protection On STEFANY-I or ARB:yes Heart protection On low dose ASA: no On Statin: started atorvastatin 3 weeks ago Last urine protein measurement: Lab Results Component Value Date MICROALBUR 5.7 07/14/2020 Alb/Cr Ratio, Random 0 - 29 mcg/mg Cr 5 Last Kidney function: Lab Results Component Value Date CREATININE 0.78 03/25/2021 Estimated GFR >=60 mL/min/1.73 m?? 80 Last lipid panel: Lipid Panel Lab Results Component Value Date CHLPL 172 07/14/2020 HDL 73 07/14/2020 CHOLHDL 2.4 07/14/2020 LDLDIRECT 97 07/14/2020 Current Medications: Medications 03/25/21 0919 Medication Sig Taking? atorvastatin (Lipitor) 20 mg Tablet TAKE ONE TABLET BY MOUTH AT BEDTIME Yes insulin lispro (humaLOG) 100 unit/mL Solution INJECT 40-50 UNITS SUBCUTANEOUSLY CONTINUOUS DAILY VIA PUMP. DX:E10.69 Yes pantoprazole EC (Protonix) 40 mg Tablet, Delayed Release (E.C.) TAKE ONE TABLET BY MOUTH EVERY DAY Yes Contour Next Test Strips Strip TEST 8 TIMES A DAY. DX: E10.9 Yes zoledronic urry-fypwwyav-vnbwb (zoledronic Acid) 5 mg/100 mL IV solution Inject 5 mg into the vein.Yearly Yes insulin needles, disposable, (BD ULTRA-FINE SHORT PEN NEEDLE) 31 gauge x 5/16 Needle 1 Box [place] [facility] [place]Non-Drug; Combo Route) route 4 times daily. Box of 100 Yes MAGNESIUM ORAL Take by mouth daily. Yes acetaminophen (TYLENOL) 500 mg Tablet Take 1,000 mg by mouth every 6 hours as needed for Pain. Yes ibuprofen (ADVIL;MOTRIN) 200 mg Tablet Take 600 mg by mouth daily as needed for Pain. Yes Diabetic Supplies, Miscellan. [facility] [place] [facility] Diabetic Supplies, Miscellan. [facility] [place] [facility] Yes ADVAIR DISKUS 100-50 mcg/dose Disk with Device Inhale 1 puff into the lungs daily. Yes Diabetic Supplies, Miscellan. Misc Form faxed to [facility] for insulin pump supplies Yes multivitamin with minerals (THERA-M) 9-0.4 mg Tablet Take 1 tablet by mouth daily. Yes lisinopril (PRINIVIL;ZESTRIL) 20 mg Tablet Take 1 tablet by mouth daily. Yes glucagon, Human Recombinant, 1 mg Recon Soln PRN For severe hypoglycemia insulin glargine (LANTUS SOLOSTAR U-100 INSULIN) 100 unit/mL (3 mL) pen Inject 10 Units subcutaneously daily. Patient not taking: Reported on 07/14/[address] azalia Carb counts Sort of, not really Special Diet 3 meals/day * Breakfast: 1/2 apple, piece of rye bread and peanut butter and a elisa cracker * Lunch 3pm almonds, 1/2 apple, yoghurt 1/2 cup * Dinner: Milena, baked potato, tomatoes and cucumbers * Drinks: Water, no soda, no alcohol (alcoholic) * snacks: Almonds, ice cream Exercises: Active at work, walks to mailbox (1/2 mile) REVIEW OF SYSTEMS: Constitutional: No recent weight changes, no fevers, chills, fatigue, denies sleep disturbances Endocrine: No increased thirst or urination, heat/cold intolerance Eyes: No recent vision changes ENT: some dysphagia, dental issues Cardiovascular: No chest pain, palpitations Respiratory: No wheezing , + shortness of breath - asthma (advair) GI: No nausea, vomiting, diarrhea, constipation : No frequent urinary tract infections, dysuria, hematuria Neurological: No weakness or numbness, dizziness Skin/Feet: feet are bothering more numbness and tingling, No current diabetic foot ulcers/open area, no darkening of skin or skin changes Physical Exam: BP 124/58 Pulse 67 Temp 36.2 ??C (97.1 ??F) Ht 149.9 cm (4' 11) Wt 58.6 kg (129 lb 3.2 oz) SpO2 100% BMI 26.10 kg/m?? Appearance: pleasant, NAD, AAOx3, speaking in clear sentences HEENT: PERRL Respiratory: breathing non-labored on RA Abd: Soft, non-distended, non-tender x4 quadrants Skin: abdomen injection sites: no bruising or evidence of scar tissue/lipohypertrophy No acanthosis nigricans Feet: shape is normal, skin is normal/dry with no open areas or redness, nails are not mycotic (Rt great toe nail with some thicness), distal cap refill wnl pulses in feet : dorsalis pedis-yes posterior tibial-yes Lower extremities: No peripheral edema Neuro: appreciation of 10 g of pressure is present, gait is normal, moving all extremities. Grosslynon-focal Labs: Recent Results (from the past 24 hour(s)) TSH Result Value Ref Range TSH 2.39 0.27 - 4.20 mcIU/mL Potassium Result Value Ref Range Potassium 4.1 3.5 - 5.0 mmol/L Creatinine Result Value Ref Range Creatinine 0.78 0.70 - 1.20 mg/dL Estimated GFR 80 >=60 mL/min/1.73 m?? Assessment: Patient is a 66 y.o. female with PMH significant for T1DM complicated by hypoglycemia unawareness,and HTN. Diabetes is managed with Kamicat pump and Tastemakeran CGM. Diabetes is currently well controlled, last A1C of 6.7%. She does have some hypoglycemia associated with meal time bolusing. We reviewed importance of carb counting and administering meal time bolus 15-20 minutes before eating. Basal rates seem appropriate. Patient has a good understanding of diabetes and potential complications of poor blood glucose control. Has recently started statin medication, LDL will be repeated at next visit. BP at goal. Plan: Turn up your pump alarm to alert you to low blood sugars Change sets every 3 days. Follow up to establish care with podiatry closer to your home Check with PCP on pneumonia vaccine status and for PT referral for strength training and leg pains --Medications: No changes to your basal settings. Focus on administering your meal time bolus 15 minutes before eating Be aware of carb counts in foods you do not regularly consume --Monitoring: with CGM check BGs fasting in am, before each meal, 1-2 hours after meals and at bedtime. Target fasting blood sugars 90-140 pre-meal during daytime 90-150 1-2 h post meal below 180 Target A1c <7% for this patient. --Patient will keep log of blood glucose and insulin used for review at next visit or bring CGM reader for download --Diet and exercise: low fat/controlled carb diet & exercise as tolerated to keep weight down. --Prevention: started on statin 3 weeks ago, plans to update flu vaccine in May --F/U lab for: A1C. LDL, u alb.cre, creatinine --RTC: Next visit in 6 months. 60 minutes were spent reviewing the medical record and available tests, performing a physical exam,counseling the patient on medications, recommending changes to insulin dosing, reviewing managementof hypoglycemia, and in review of Pump download, I have reviewed the plan outlined above with the patient and patient has verbalized understanding. documented in this encounter Plan of Treatment Upcoming Encounters Date Type Department Care Team (Late st Contact Info) Description 06/05/2024 10:15 AM EST Office Visit [place] [address] Namita Bansal MD [facility] DR ENDOCRIN[place] [address] documented as of this encounter Goals Goal Patient Goal Type Associated Problems Recent Progress Patient-Stated? Author Exercise 3x per week (30 min per time) Exercise No Keila Arango CDE documented as of this encounter Visit Diagnoses Diagnosis Type 1 diabetes mellitus without complication, with snf current use of insulin pump documented in this encounter Care Teams Artillery Or Naval Gunfire Observer Relationship Specialty Start Date End Date Mitchell Yap MD [address] [place] [address] PCP - General 05/19/10 07/17/23 documented as of this encounter
--- OUTSIDE RECORDS SUMMARY | 2024-04-18 13:14 | XMS_ITS | Encounter Summary ---
Author Organization [facility] [place] [address] Care Team Providers Care Attendant Sales Name Role Phone Mitchell Yap MD Primary Care Provider [phone] Reason for Visit * Reason Comments Medication Refill Encounter Details Date Type Department Care Team (Late st Contact Info) Description 08/24/2020 [place]ill [place] [phone] Lin Rojas MD [facility] [place] [address] Social History Tobacco Use Types Packs/Day Years [...] 10:15 AM EST Office [place] [address] Namita Bansal MD [facility] [place] [address] documented as of this encounter Goals Goal Patient Goal Type Associated Problems Recent Progress Patient-Stated? Author Exercise 3x per week (30 min per time) Exercise No Keila Arango, CHRISTIANO documented as of this encounter Visit Diagnoses Not on filedocumented in this encounter Care Teams Attendant Sales Relationship Specialty Start Date End Date Mitchell Yap MD [address] [place] [address] PCP - General 05/19/10 07/17/23 documented as of this encounter
--- OUTSIDE RECORDS SUMMARY | 2024-04-18 13:14 | XMS_ITS | Encounter Summary ---
[place] [address] Care Team Providers Care Banking Attorney Name Role Phone Mitchell Yap MD Primary Care Provider [phone] Reason for Visit * Reason Onset Date Comments Pump/sensor 01/02/2021 Encounter Details Date Type Department Care Team (Late st Contact Info) Description 01/02/2021 Telephone [place] [phone] Namita Cordero Pump/sensor Social History Tobacco Use [...] * Telephone Encounter - Namita Cordero - 01/02/2021 7:17 AM EDT Documentation request received from [facility]. 11/03/20 office notes routed Confirmed 01/02 documented in this encounter Plan of Treatment Upcoming Encounters Date Type Department Care Team (Late st Contact Info) Description 06/05/2024 10:15 AM EST Office [place] [address] Namita Bansal MD [facility] [place] [address] documented as of this encounter Goals Goal Patient Goal Type Associated Problems Recent Progress Patient-Stated? Author Exercise 3x per week (30 min per time) Exercise No Keila Arango, CHRISTIANO documented as of this encounter Visit Diagnoses Not on filedocumented in this encounter Care Teams Banking Attorney Relationship Specialty Start Date End Date Mitchell Yap MD [address] [place] [address] PCP - General 05/19/10 07/17/23 documented as of this encounter
--- OUTSIDE RECORDS SUMMARY | 2024-04-18 13:14 | XMS_ITS | Encounter Summary ---
[place] [address] Care Team Providers Care Degreaser Operator Name Role Phone Mitchell Yap MD Primary Care Provider [phone] Encounter Details Date Type Department Care Team (Late st Contact Info) Description 09/23/2021 10:30 AM EDT Office [place] [address] Marga Leiva, CHEESE WRAPPER [facility] [place] [address] Type 1 diabetes mellitus with other specified [...] Sign Reading Time Taken Comments Blood Pressure 122/57 09/23/2021 10:00 AM EDT Pulse 76 09/23/2021 10:00 AM EDT Temperature 36.3 ??C (97.4 ??F) 09/23/2021 10:00 AM E DT Respiratory Rate - - Oxygen Saturation 100% 09/23/2021 10:00 AM EDT Inhaled Oxygen Concentration - - Weight 56.7 kg (125 lb) 09/23/2021 10:00 AM EDT Height 151.8 cm (4' 11.75) 09/23/2021 10:00 AM EDT Body Mass Index 24.62 09/23/2021 10:00 AM EDT documented in this encounter Patient Instructions * Patient Instructions* Marga Leiva APRN - 09/27/2021 10:25 PM EDT Plan: --Medications: No changes to basal rates --Monitoring: with CGM check BGs fasting in am, before each meal, 1-2 hours after meals and at bedtime. Target fasting blood sugars 90-140 pre-meal during daytime 90-150 1-2 h post meal below 180 Target A1c 7% for this patient. --Patient will keep log of blood glucose and insulin used for review at next visit or bring CGM reader for download --Diet and exercise: low fat/controlled carb diet & exercise as tolerated to keep weight down. --Prevention: planning to update Covid second booster --F/U lab for: A1C, creatinine, TSH - future orders in place --RTC: Next visit in September, then Q 3 months per medicare requirement. documented in this encounter Progress Notes * Marga Leiva APRN - 09/23/2021 10:30 AM EDT Date of Visit: 09/23/2021 Reason for Visit: Follow-up diabetes Brief History: Ebonie Sol is a 66 y.o. female with PMH significant for T1DM. She manages her DM with a medtronic pump and guardian sensor. Notable medical comorbidities: hypoglycemia unawareness, HTN. She presents today for diabetes follow up management and to provide a review of jail diabetes care. Interval Hx: She did have a neurology appt with concern for her memory, she is having a sleep studyperformed tonight. She has adjusted her basal rates up. Will have low blood sugars due to overbolusing for meals because often does not eat as much as she anticipates. She has given up ice cream and started back to walking, 7 pound weight gain over the winter. Planning her transition to medicare Plan from previous visit note: Andres 06/29/2021 1) Diabetes Mellitus Type 1, controlled Estimated A1c 6.6% indicating overall good control ?? Her average glucose control on her pump download appears fairly good. One pattern I noticed were repeated episodes of severe drops in blood sugar at bedtime, likely due to over-aggressive correction at that time. This appears to lead to rebound hyperglycemia on several occasions. She will try to reduce the amount that she boluses in the evening if she does do a manual bolus. ?? She plans to try to move the guardian sensor to a different location such as her arm to see if she will get a better correlation between blood glucose and sensor reading. We did discuss that there issome natural expected variation between the two values ?? Check routine labs in the near future at [facility] (she tells me it will be nonfasting) ?? CV health: she is taking an STEFANY-I and statin. Check lipid panel ?? RTC August 2021 for scheduled visit with Marga Leiva NP ?? Norris Campos MD Detective Chiefrotary rock drilling machine operator Endocrinology Section [facility] ?? Recent Labs 09/23/21 0934 HA1C 7.4* Diabetes History: Ebonie Sol diabetes diagnosed age 57 years old. ? Current Diabetes Medications: humalog Basal rates: MN?0.5 2a?0.575 5a 0.525 10a?0.45 2p 0.500 5p?0.600? 6p?0.550 9p?0.450 ?? CR MN?14 12:30p?13 6:30p?14 ?? CF?55 Target 110 - 140 Active insulin time 4 hrs Insulin administration site: pump/abdomen Compliance with insulin: good ?? Glucose Monitoring: Sensor: guardian Justification for testing > 3x a day to prevent severe hyperglycemia, widely fluctuating BS, overnight hypoglycemia Meter uploaded today: yes ?? Duration of need: lifetime Pump/Sensor information: 670 G pump, guardain CGM Frequency of set changes: Every 3 Days ? Hypoglycemia Awareness: No awareness, has glucagon BG testing >??than ??5?if having hypoglycemia occurrances ?? Hyperglycemia: History of DKA: at age 7 with diagnosis ? Diabetes Complications Review: Eyes: No retinopathy, no history of laser therapy and/or injections Kidneys: No history of microalbuminuria, proteinuria, decreased kidney function, CKD, dialysis or kidney transplant Feet: Normal shape, no history of foot ulcers, denies burning/numbness/tingling - unless sugars arereally high, no previous decreased sensation to monofilament testing, no prior amputations, Autonomic: No history of gastroparesis, problems emptying bladder, inability to detect hypoglycemia, or tachycardia Cardiac: No ??history of CAD, cardiac stents, cardiac bypass surgery,CHF, PVD, CVA ?? Diabetes Prevention: Last eye exam: UTD Regular assessment nurse: yes - regular Special shoes: Dental visits regular: yes Flu vaccine: 2020 Covid Vaccinations: yes x 3 planning on second booster Pneumovax and Prevnar: check with PCP Kidney protection On STEFANY-I or ARB:yes Heart protection On low dose ASA: no On Statin:atorvastatin Last urine protein measurement: Lab Results Component Value Date MICROALBUR 5.7 07/14/2020 Last Kidney function: Lab Results Component Value Date CREATININE 0.72 09/23/2021 Estimated GFR >=60 mL/min/1.73 m?? 88 Last lipid panel: Lipid Panel Lipid Panel Lab Results Component Value Date CHLPL 172 07/14/2020 HDL 73 07/14/2020 CHOLHDL 2.4 07/14/2020 LDLDIRECT 59 09/23/2021 Current Medications: Medications 09/23/21 1051 Medication Sig Taking? cholecalciferol, Vitamin D3, (Vitamin D3) 1,000 unit Tablet Take by mouth daily. Yes Contour Next Test Strips Strip TEST 8 TIMES A DAY. DX: E10.9 Yes cyclobenzaprine (Flexeril) 5 mg Tablet TAKE 1 TO 2 TABLETS BY MOUTH TWO TIMES A DAY NEEDED Yes atorvastatin (Lipitor) 20 mg Tablet TAKE ONE TABLET BY MOUTH AT BEDTIME Yes insulin lispro (humaLOG) 100 unit/mL Solution INJECT 40-50 UNITS SUBCUTANEOUSLY CONTINUOUS DAILY VIA PUMP. DX:E10.69 Yes pantoprazole EC (Protonix) 40 mg Tablet, Delayed Release (E.C.) TAKE ONE TABLET BY MOUTH EVERY DAY Yes zoledronic tice-ghzfiesi-hvqqv (zoledronic Acid) 5 mg/100 mL IV solution Inject 5 mg into the vein.Yearly Yes insulin needles, disposable, (BD ULTRA-FINE SHORT PEN NEEDLE) 31 gauge x 5/16 Needle 1 Box by [facility].(Non-Drug; Combo Route) route 4 times daily. Box of 100 Yes MAGNESIUM ORAL Take by mouth daily. Yes acetaminophen (TYLENOL) 500 mg Tablet Take 1,000 mg by mouth every 6 hours as needed for Pain. Yes ibuprofen (ADVIL;MOTRIN) 200 mg Tablet Take 600 mg by mouth daily as needed for Pain. Yes Diabetic Supplies, Miscellan. [facility] CMN form faxed to [employer] Yes ADVAIR DISKUS 100-50 mcg/dose Disk with Device Inhale 1 puff into the lungs daily. Yes Diabetic Supplies, Miscellan. [facility] Form faxed to [facility] diabetes for insulin pump supplies Yes multivitamin with minerals (THERA-M) 9-0.4 mg Tablet Take 1 tablet by mouth daily. Yes lisinopril (PRINIVIL;ZESTRIL) 20 mg Tablet Take 1 tablet by mouth daily. Yes glucagon, Human Recombinant, 1 mg Recon Soln as needed. insulin glargine (LANTUS SOLOSTAR U-100 INSULIN) 100 unit/mL (3 mL) pen Inject 10 Units subcutaneously daily. Patient not taking: No sig reported Diabetic Supplies, Miscellan. [facility] PWO faxed to [facility] Medical Has met with RD? Carb counts Special Diet 3 meals/day * Breakfast: Kiwi, 1/3 cup pineapple, 1/2 toast, tea * Lunch * Dinner: Clam chowder and grilled cheese and 1/2 orange * Drinks: * snacks: Ice cream this was my last Exercises: Walking REVIEW OF SYSTEMS: Constitutional: No recent weight changes, no fevers, chills, fatigue, denies sleep disturbances Endocrine: No increased thirst or urination, heat/cold intolerance Eyes: No recent vision changes ENT: No dysphagia, dental issues Cardiovascular: No chest pain, palpitations Respiratory: No wheezing , shortness of breath GI: No nausea, vomiting, diarrhea, constipation : No frequent urinary tract infections, dysuria, hematuria Neurological: No weakness or numbness, dizziness Skin/Feet: No current diabetic foot ulcers/open area, no darkening of skin or skin changes Physical Exam: BP 122/57 Pulse 76 Temp 36.3 ??C (97.4 ??F) Ht 151.8 cm (4' 11.75) Wt 56.7 kg (125 lb) SpO2 100% BMI 24.62 kg/m?? Appearance: pleasant, NAD, AAOx3, speaking in clear sentences HEENT: PERRL Respiratory: breathing non-labored on RA Abd: Soft, non-distended, non-tender x4 quadrants Skin: abdomen injection sites: no bruising or evidence of scar tissue/lipohypertrophy Feet: shape is normal, skin is normal with no open areas or redness, nails are not mycotic, distal cap refill wnl pulses in feet : dorsalis pedis-yes posterior tibial-yes Lower extremities: No peripheral edema Neuro: appreciation of 10 g of pressure is present, gait is normal, moving all extremities. Grosslynon-focal Labs: Recent Results (from the past 24 hour(s)) Creatinine Result Value Ref Range Creatinine 0.72 0.70 - 1.20 mg/dL Estimated GFR 88 >=60 mL/min/1.73 m?? LDL Cholesterol, Direct Result Value Ref Range LDL Chol Direct 59 mg/dL Hemoglobin A1c Result Value Ref Range Hemoglobin A1C 7.4 (H) 4.3 - 5.6 % Est Avg Gluc 165 mg/dL Assessment: Patient is a 66 y.o. female [...] sets every 3 days. Overall good control. Review of AHA/ACC/ADA and Endocrine Society clinical practice guidelines, recommend that a moderateintensity statin should be started at age 40 in those with diabetes regardless of ASCVD risk. Goal LDL should be < 70 in general and < 55 in those with established cardiovascular disease or multiple risk factors. LDL is now at goal on her statin therapy BP: at goal Plan: --Medications: No changes to basal rates --Monitoring: with CGM check BGs fasting in am, before each meal, 1-2 hours after meals and at bedtime. Target fasting blood sugars 90-140 pre-meal during daytime 90-150 1-2 h post meal below 180 Target A1c 7% for this patient. --Patient will keep log of blood glucose and insulin used for review at next visit or bring CGM reader for download --Diet and exercise: low fat/controlled carb diet & exercise as tolerated to keep weight down. --Prevention: planning to update Covid second booster --F/U lab for: A1C, creatinine, TSH --RTC: Next visit in September, then Q 3 months per medicare requirement. 40 minutes were spent reviewing the medical record and available tests, performing a physical exam,counseling the patient on medications, reviewing insulin dosing, reviewing management of hypoglycemia, and in review of pump downloads, I have reviewed the plan outlined above with the patient and patient has verbalized understanding. documented in this encounter Plan of Treatment Upcoming Encounters Date Type Department Care Team (Late st Contact Info) Description 06/05/2024 10:15 AM EST Office [place] [address] Namita Bansal MD [facility] [place] [address] Scheduled Orders Name Type Priority Associated Diagnoses Orde r Schedule Hemoglobin A1c Lab Routine Type 1 diabetes mellitus with other specified complication Expected: 03/26/2022 (Approximate), Expires: 09/23/2022 documented as of this encounter Goals Goal Patient Goal Type Associated Problems Recent Progress Patient-Stated? Author Exercise 3x per week (30 min per time) Exercise No Keila Arango, CDLulu documented as of this encounter Visit Diagnoses Diagnosis Type 1 diabetes mellitus with other specified complication documented in this encounter Care Teams Degreaser Operator Relationship Specialty Start Date End Date Mitchell Yap MD [address] [place] [id number] PCP - General 05/19/10 07/17/23 documented as of this encounter
--- OUTSIDE RECORDS SUMMARY | 2024-04-18 13:14 | XMS_ITS | Encounter Summary ---
[place] [address] Care Team Providers Care Personal Financial Planner Name Role Phone Mitchell Yap MD Primary Care Provider [phone] Reason for Visit * Reason Onset Date Comments Pump/sensor 07/28/2020 Encounter Details Date Type Department Care Team (Late st Contact Info) Description 07/28/2020 Telephone [place] [phone] Namita Cordero Pump/sensor Social History Tobacco Use [...] * Telephone Encounter - Namita Cordero - 07/28/2020 9:20 AM EST Documentation request received from [employer]. Office notes routed Confirmed 07/28 documented in this encounter Plan of Treatment Upcoming Encounters Date Type Department Care Team (Late st Contact Info) Description 06/05/2024 10:15 AM EST Office Visit [place] [address] Namita Bansal MD [facility] [place] [address] documented as of this encounter Goals Goal Patient Goal Type Associated Problems Recent Progress Patient-Stated? Author Exercise 3x per week (30 min per time) Exercise No Keila Arango, CHRISTIANO documented as of this encounter Visit Diagnoses Not on filedocumented in this encounter Care Teams Personal Financial Planner Relationship Specialty Start Date End Date Mitchell Yap MD [address] [place] [address] PCP - General 05/19/10 07/17/23 documented as of this encounter
--- OUTSIDE RECORDS SUMMARY | 2024-04-18 13:14 | XMS_ITS | Encounter Summary ---
[place] [address] Care Team Providers Care Sander Machine Name Role Phone Mitchell Yap MD Primary Care Provider [phone] Reason for Visit * Reason Onset Date Comments Prior Authorization 12/01/2020 Encounter Details Date Type Department Care Team (Late st Contact Info) Description 12/01/2020 Telephone [place] [phone] Elena Donohue Prior Authorization Social History Tobacco Use Types [...] encounter Miscellaneous Notes * Telephone Encounter - Elena Donohue - 12/01/2020 9:23 AM EDT Medication or supply: Contour Next Test Strips Strip Insurance Company: Medicaid [place] Fax: Reference # Pt stated she has 5 strips left and asked to have this PA rushed please documented in this encounter Plan of Treatment Upcoming Encounters Date Type Department Care Team (Late st Contact Info) Description 06/05/2024 10:15 AM EST Office Visit [place] [address] Namita Bansal MD [facility] [place] [address] documented as of this encounter Goals Goal Patient Goal Type Associated Problems Recent Progress Patient-Stated? Author Exercise 3x per week (30 min per time) Exercise No Keila Arango, CDE documented as of this encounter Visit Diagnoses Not on filedocumented in this encounter Care Teams Sander Machine Relationship Specialty Start Date End Date Mitchell Yap MD [address] [place] [address] PCP - General 05/19/10 07/17/23 documented as of this encounter
--- OUTSIDE RECORDS SUMMARY | 2024-04-18 13:14 | XMS_ITS | Encounter Summary ---
[place] [address] Care Team Providers Care Lsw Name Role Phone Mitchell Yap MD Primary Care Provider [phone] Reason for Visit * Reason Onset Date Comments Medication Refill 02/27/2021 Encounter Details Date Type Department Care Team (Late st Contact Info) Description 02/27/2021 Refill [place] [address] Blaze Lora, RN Type 1 diabetes mellitus without complication, with terminal manager current use of insulin pump Social History [...] 10:15 AM EST Office [place] [address] Namita Bansal MD [facility] [place] [address] documented as of this encounter Goals Goal Patient Goal Type Associated Problems Recent Progress Patient-Stated? Author Exercise 3x per week (30 min per time) Exercise No Keila Arango, VELMAE documented as of this encounter Visit Diagnoses Diagnosis Type 1 diabetes mellitus without complication, with terminal manager current use of insulin pump documented in this encounter Care Teams Lsw Relationship Specialty Start Date End Date Mitchell Yap MD [address] [place] [address] PCP - General 05/19/10 07/17/23 documented as of this encounter
--- OUTSIDE RECORDS SUMMARY | 2024-04-18 13:14 | XMS_ITS | Encounter Summary ---
Author Organization [facility] [place] [address] Care Team Providers Care Windows Support Engineer Name Role Phone Mitchell Yap MD Primary Care Provider [phone] Reason for Visit * Reason Onset Date Comments Letter for School/Work 07/02/2021 Encounter Details Date Type Department Care Team (Late st Contact Info) Description 07/02/2021 Telephone [place] [phone] Laith Diehl MD [facility] DR [place] [address] Letter for School/Work Social History Tobacco Use Types Packs/Day Years [...] encounter Miscellaneous Notes * Telephone Encounter - Emily Humphrey - 07/02/2021 12:12 PM EST Sent to portal * Telephone Encounter - Nona Quezada - 07/02/2021 10:55 AM EST Name: Ebonie Sol Mailing address: [address] [place] [phone] : 1955 Date of Surgery:06/16/21, Dr. Diehl What are you returning to/ out of (work, sports, school, etc.)? 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 24-30 hrs a week If supervisor silvering department, how many hours a day? 6hrs a day What do you want your start date to be? 07/03/21, ERINN What restrictions do you need? N/A Would you like to shredder picker your letter? Sent to [facility] [phone] documented in this encounter Plan of Treatment Upcoming Encounters Date Type Department Care Team (Late st Contact Info) Description 06/05/2024 10:15 AM EST Office Visit [place] [address] Namita Bansal MD [facility] [place] [address] documented as of this encounter Goals Goal Patient Goal Type Associated Problems Recent Progress Patient-Stated? Author Exercise 3x per week (30 min per time) Exercise No Keila Arango, CHRISTIANO documented as of this encounter Visit Diagnoses Not on filedocumented in this encounter Care Teams Windows Support Engineer Relationship Specialty Start Date End Date Mitchell Yap MD [address] [address] PCP - General 05/19/10 07/17/23 documented as of this encounter
--- OUTSIDE RECORDS SUMMARY | 2024-04-18 13:14 | XMS_ITS | Encounter Summary ---
[place] [address] Care Team Providers Care Digital Commentator Name Role Phone Mitchell Yap MD Primary Care Provider [phone] Encounter Details Date Type Department Care Team (Latest Contact Info) Description 09/23/2021 9:25 AM EDT Laboratory Appointment Lab [address] [address] Type 1 diabetes mellitus with [...] 10:15 AM EST Office [place] [address] Namita Bansal MD [facility] [place] [address] documented as of this encounter Goals Goal Patient Goal Type Associated Problems Recent Progress Patient-Stated? Author Exercise 3x per week (30 min per time) Exercise Keila Espinoza, CHRISTIANO documented as of this encounter Procedures Procedure Name Priority Date/Time Associated Diagnosis Comments HC CREATININE - NON BLOOD Routine 09/23/2021 10:15 AM EDT Type 1 diabetes mellitus with other specified complication HC VENIPUNCTURE Routine 09/23/2021 9:34 AM EDT Type 1 diabetes mellitus with other specified complication HC LDL CHOLESTEROL, DIRECT Routine 09/23/2021 9:34 AM EDT Type 1 diabetes mellitus with other specified complication HC HEMOGLOBIN A1C Routine 09/23/2021 9:3 4 AM EDT Type 1 diabetes mellitus with other specified complication documented in this encounter Results * U Albumin/Cre Ratio (09/23/2021 10:15 AM EDT) Albumin / Creatinin Ratio, Urine <4 0 - 29 mcg/mg Cr [facility] Comment: Reference Ranges: <30 mcg/mg: [...] Supplements (2012) 2, 357? 362 Albumin, Urine <3.0 mg/L [facility] Creatinine, Urine 78 mg/dL [facility] Urine 09/23/2021 10:1 5 AM EDT 09/23/2021 10:26 AM EDT Narrative Resulting Agency Comment Spec In Lab Marga Leiva APRN URINE ORDERABLES [facility] [place] [address] * (ABNORMAL) Hemoglobin A1c (09/23/2021 9:34 AM EDT) Hemoglobin A1c 7.4(H) 4.3 - 5.6 % [facility] Comment: Reference Range: 4.3 - [...] Mellitus, Diabetes Care 2013; 36: Suppl. 1, S67-36 Estimated Average Glucose 165 mg/dL [facility] Comment: eAG equivalents for HbA1c [...] into estimated average glucose values. ??Diabetes Care 2008:31(8):4365-8577. Blood 09/23/2021 9:34 AM EDT 09/23/2021 9:47 AM EDT Narrative Resulting Agency Comment Spec In Lab Marga Lucianoder ENGRAVER STEEL PLATE CHEMISTRY ORDERAB LES Performing Organization Address [facility] Co de Phone Number [facility] [place] [address] * LDL Cholesterol, Direct (09/23/2021 9:34 AM EDT) LDL Cholesterol, Direct 59 mg/dL [facility] Comment: Lowest Risk: <100 mg/dL Lower Risk: 100-129 mg/dL Borderline High Risk: 130-159 mg/dL High Risk: 160-189 mg/dL Very High Risk: >vg=234 mg/dL Blood 09/23/2021 9:34 AM EDT 09/23/2021 9:47 AM EDT Narrative Resulting Agency Comment Spec In Lab Marga Lucianoder ENGRAVER STEEL PLATE CHEMISTRY ORDERAB LES Performing Organization Address [facility] de Phone Number [facility] [place] [address] * Creatinine (09/23/2021 9:34 AM EDT) Creatinine 0.72 0.70 - 1.20 mg/dL [facility] Est Glomerular Filtration Rate 88 >=60 mL/min/1. 73 m?? [facility] Comment: This patient? s estimated glomerular filtration rate (eGFR) is between 88 mL/min/1.73 m2 (patients with less muscle mass) and 103 mL/min/1.73 m2 (patients with more muscle mass) [...] and symptoms in addition to eGFR. Blood 09/23/2021 9:34 AM EDT 09/23/2021 9:47 AM EDT Narrative Resulting Agency Comment Spec In Lab Marga Leiva ENGRAVER STEEL PLATE CHEMISTRY ORDERAB LES Performing Organization Address City/State/[facility] Co de Phone Number [facility] [place] [address] documented in this encounter Visit Diagnoses Diagnosis Type 1 diabetes mellitus with other specified complication documented in this encounter Care Teams Digital Commentator Relationship Specialty Start Date End Date Mitchell Yap MD [address] [place] [address] PCP - General 05/19/10 07/17/23 documented as of this encounter
--- OUTSIDE RECORDS SUMMARY | 2024-04-18 13:14 | XMS_ITS | Encounter Summary ---
Author Organization [facility] [place] [address] Care Team Providers Care Transportation Clerk Name Role Phone Mitchell Yap MD Primary Care Provider [phone] Reason for Visit * Auth/Cert Specialty Diagnoses / Procedures Referred By Malka vera Referred To Contact Diagnoses Right long trigger finger Procedures PRO INCISE FINGER TENDON SHEATH TENDON SHEATH INCISION (TRIGGER FINGER) (WRVU 3.11) Referral ID Status Reason Start Date Expiration Date Visits Re quested Visits Authorized [id number] 1 1 Encounter Details Date Type Department Care Team (Late st Contact Info) Description 05/19/2021 9:49 AM EST Anesthesia Event [facility] [place] [address] Carmela Pena MD [facility] DR [place] [address] Lisa Dumas MD [facility] [place] [address] Anesthesia Record Procedure Summary Procedure Name Responsible Anesthesiologist Anesthesia Start Time Anesthesia Stop Time TENDON SHEATH INCISION (TRIGGER FINGER) (WRVU 3.11) (Right: Finger) Carmela Pena MD 05/19/21 0949 05/19/21 1020 Events Date Time Event Comment 05/19/2021 0907 0949 AN Verify 0949 Start 0952 An Start Data 0956 Anesthesia Ready 1002 Procedure Start Time out com plete 1003 An Tourn Inflated 225mmHg 1014 An Tourn Deflated 1020 an stop data 1020 Recovery or ICU Handoff Deya ent care was transferred to the destination unit staff after review of the patient's medical history, current anesthetic/surgical status and plan, according to the Provider Handoff Checklist. 1020 Stop Meds Name Total Midazolam 2 mg Propofol 50 mg Propofol INF 64.2 mg clindamycin (Cleocin) (150 mg/mL) inject ion 900 mg 900 mg Dexmedetomidine 8 mcg lactated ringers infusion 200 mL * Agents Name O2 Air N2O * Blood No blood administrations on file. Lines, Drains, and Airways Type Details Placement Removal Incision 05/19/21; 1001; Righ t; third finger 05/19/21 1001 by Sammie Cordero RN Incision 09/26/18; third finger; Left long finger; 02/22/22 (LDA cleanup utility RA#[id number]); 1715 (LDA cleanup utility RA#[id number]) 09/26/18 0000 by Lin Walls RN 02/22/22 1715 by Evita Ramos Incision 10/10/18; 0924; se[place] finger; 02/22/22 (LDA cleanup utility RA#[id number]); 1715 (LDA cleanup utility RA#[id number]) 10/10/18 0924 by Ava Del Real RN 02/22/22 1715 by Evita Ramos (RETIRED) Peripheral IV Line - Single Lumen 05/19/21; 0911; median cubital vein (antecubital fossa), left; [id number]-glg-hpyhns catheter system; Anatomical Landmarks; US Not Used; 22 gauge; leo serrano; distraction, topical anesthetic spray applied, tolerated well, appears comfortable; 05/19/21; 1056 05/19/21 0911 by Leo Ayoub RN 05/19/21 1056 by Nancy Yung RN documented in this encounter Social History [...] OR Notes * Anesthesia Postprocedure Evaluation - Carmela Pena MD - 05/19/2021 10:27 AM EST Department of Anesthesiology Post-procedure Note Patient: Ebonie Sol Procedure Summary Date: 05/19/21 Room / Location: [address] [facility] Anesthesia Start: 948 Anesthesia Stop: 1019 Procedure: TENDON SHEATH INCISION (TRIGGER FINGER) (WRVU 3.11) (Right Finger) Diagnosis: Trigger middle finger of right hand (Right long trigger finger) Surgeons: Laith Diehl MD Responsible Provider: Carmela Pena MD Anesthesia Type: MAC ASA Status: 3 All Anesthesia Providers: Anesthesiologist: Carmela Pena MD IAP DISPLAYS ANALYST: Tita Griffith CRNA Vitals Value Taken Time BP 91/70 05/19/21 1024 Temp 36.2 ??C (97.2 ??F) 05/19/21 1023 Pulse 74 05/19/21 1027 Resp 16 05/19/21 1023 SpO2 100 % 05/19/21 1027 Pain Level 0 05/19/21 1023 Vitals shown include unvalidated device data. Patient Location: PACU/[facility] Level of Consciousness: Awake and Alert Pain Management: Satisfactory Analgesia PONV: None Cardiovascular Status: At Baseline Respiratory Status: Stable Respiratory Status and Room Air Postoperative Fluid Status: Intravascular EUvolemia Possible Anesthetic Complications: Final Primary Anesthesia Type: MAC (The anesthetic type performed was the same as planned.) Comments: Ms. Sol tolerated the procedure well and without complication. VSS. * Anesthesia Preprocedure Evaluation - Carmela Pena MD - 05/18/2021 4:56 PM EST Pre-Anesthesia Evaluation for: Ebonie Sol a 66 y.o. female. Procedure(s): TENDON SHEATH INCISION (TRIGGER FINGER) (WRVU 3.11) Patient Active Problem List Diagnosis ??? Trigger thumb of left hand ??? 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 Carpal tunnel syndrome on left ??? Hypertension ??? CIS - Entered not Verified ??? CIS - type 1 DM in excellent control using an insulin pump and CGMS. Diagnosed at age 7 Past Medical History: Diagnosis Date ??? Asthma [...] LIGAMENT performed by Laith Diehl MD at [facility] ??? PRO INCISE FINGER TENDON SHEATH Left 06/10/2016 TENDON SHEATH INCISION (TRIGGER FINGER) (WRVU 3.11) performed by Laith Diehl MD at [facility] ??? PRO INCISE FINGER TENDON SHEATH Left 09/26/2018 TENDON SHEATH INCISION (TRIGGER FINGER) (WRVU 3.11) performed by Laith Diehl MD at [facility] ??? PRO INCISE FINGER TENDON SHEATH Right 10/10/2018 TENDON SHEATH INCISION (TRIGGER FINGER) (WRVU 3.11) performed by Laith Diehl MD at [facility] Social History Tobacco Use ??? Smoking status: Former Smoker Types: Cigarettes ??? Smokeless tobacco: Never Used ??? Tobacco comment: quit 1978 Substance Use Topics ??? Alcohol use: Not Currently Comment: Stopped Feb 17, 2018 Social History Substance and Sexual Activity Drug Use No Allergies Allergen Reactions ??? Penicillins Anaphylaxis ??? Codeine Nausea And Vomiting ??? Prochlorperazine ??? Reclast [Zoledronic Mjuq-Slgtinsr-Gdgyv] VERTIGO ??? Naproxen Medications: MAR and/or home medications have been reviewed. Physical Exam: Preprocedure Vitals Current as of 05/18/21 1656 No BP, pulse, respiration, SpO2, or temperature recorded. Height: 149.9 cm (4' 11) (03/25/21) Weight: 58.5 kg (129 lb) (03/25/21) BMI: 26.05 IBW: 39.1 kg (86 lb 3.6 oz) Airway Assessment: Mallampati: II TM distance: >3 FB Neck ROM: full Cardiovascular Assessment: Rhythm: regular Rate: normal system normal Pulmonary Assessment: unlabored breathing pulmonary exam normal Dental Assessment: Misc Assessment: Patient is wearing No contact(s). IV access: Peripheral line Last Filed Perioperative Cognitive Screening None Anesthesia Plan: ASA 3 MAC, with a(n) intravenous induction Ms. Sol is a 66 year old female with PMhx of DMI (insulin pump; excellent control, FBS 124 thismorning), HTN, asthma (well controlled) and a right long trigger finger scheduled for release. Pt tolerated similar procedure under MAC without issue. Allergies reviewed. Plan for preoperative Tylenol, avoid Decadron as on previous occasions, MAC. Risks were discussed at length, and all questions and concerns were addressed. Consent was obtained, and the appropriate paperwork was placed in the patient's chart. Region - Other Informed Consent: Anesthetic plan and risks discussed with patient and spouse. Plan discussed with IAP DISPLAYS ANALYST. Anesthesia Screening documented in this encounter Plan of Treatment Upcoming Encounters Date Type Department Care Team (Late st Contact Info) Description 06/05/2024 10:15 AM EST Office [place] [phone] Namita Bansal MD [facility] DR [place] [address] documented as of this encounter Goals Goal [...] Rate Site clindamycin (Cleocin) (150 mg/mL) injection 900 mg 900 mg, Intravenous, ONCE, 1 dose, On Tue05/19/21 at 0945, Prior to incision in OR, Routine, Indication for (Active or Suspected): Prophylaxis Given 05/19/2021 9:56 AM EST 900 mg dexmedetomidine (Precedex) (4 mcg/mL) bolus injection (Anesthsia) Intravenous, PRN, Starting on Tue05/19/21 at 0957, Until Tue05/19/21 at 1020, Anesthesia Intra-op, Routine Given 05/19/2021 9:57 AM EST 8 mcg lactated ringers infusion 1,000 mL, at 100 mL/hr, Intravenous, CONTINUOUS, Starting on Tue05/19/21 at 0845, Until Tue05/19/21 at 1056, Day of Surgery (Day of Procedure) New Bag 05/19/2021 9:34 AM EST midazolam (pf) (Versed) (1 mg/mL) multi-dose injection Intravenous, PRN, Starting on Tue05/19/21 at 0949, Until Tue05/19/21 at 1020, Anesthesia Intra-op, Routine Given 05/19/2021 9:49 AM EST 2 mg propofoL (Diprivan) (10 mg/mL) infusion Intravenous, CONTINUOUS PRN, Starting on Tue05/19/21 at 0954, Until Tue05/19/21 at 1020, Anesthesia Intra-op, Routine New Bag 05/19/2021 9:54 AM EST 150 mcg/kg/min 48.15 mL/hr propofoL (Diprivan) 10 mg/mL bolus injection (Anesthesia) Intravenous, PRN, Starting on Tue05/19/21 at 1001, Until Tue05/19/21 at 1020, Anesthesia Intra-op Given 05/19/2021 10:01 AM EST 50 mg documented in this encounter Care Teams Transportation Clerk Relationship Specialty Start Date End Date Mitchell aYp MD [address] [place] [address] PCP - General 05/19/10 07/17/23 documented as of this encounter
--- OUTSIDE RECORDS SUMMARY | 2024-04-18 13:14 | XMS_ITS | Encounter Summary ---
[place] [address] Care Team Providers Care Bag Loader Machine Operator Name Role Phone Mitchell Yap MD Primary Care Provider [phone] Reason for Visit * Reason Onset Date Comments Prior Authorization 12/01/2020 Encounter Details Date Type Department Care Team (Late st Contact Info) Description 12/01/2020 Telephone [place] [phone] Namita Cordero Prior Authorization Social History Tobacco [...] * Telephone Encounter - Namita Cordero - 12/01/2020 10:23 AM EDT Medication Prior Authorization Andres Medication name/dose/directions: Contour Next Test Strips - test 8x daily Rationale for request: Type I DM Health plan: [place] Medicaid ([place]) Authorizing admitting representative name: Nedra Sent to health plan on: 12/01/20 Health plan decision: Approved Quantity approved: 200 per 25 days Authorization number: [id number] Start date: 12/01/20 End date: 12/01/21 documented in this encounter Plan of Treatment Upcoming Encounters Date Type Department Care Team (Late st Contact Info) Description 06/05/2024 10:15 AM EST Office [place] [address] Namita Bansal MD [facility] [place] [address] documented as of this encounter Goals Goal Patient Goal Type Associated Problems Recent Progress Patient-Stated? Author Exercise 3x per week (30 min per time) Exercise No Keila Arango CDE documented as of this encounter Visit Diagnoses Not on filedocumented in this encounter Care Teams Bag Loader Machine Operator Relationship Specialty Start Date End Date Mitchell Yap MD [address] [place] [address] PCP - General 05/19/10 07/17/23 documented as of this encounter
--- OUTSIDE RECORDS SUMMARY | 2024-04-18 13:14 | XMS_ITS | Encounter Summary ---
[place] [address] Care Team Providers Care Cut Out Marker Name Role Phone Mitchell Yap MD Primary Care Provider [phone] Reason for Visit * Reason Comments Medication Refill Encounter Details Date Type Department Care Team (Late st Contact Info) Description 11/21/2021 Refill [place] [phone] Norris Campos MD [facility] [place] [address] Social History Tobacco Use Types Packs/Day Years [...] 10:15 AM EST Office Visit [place] [phone] Namita Bansal MD [facility] [place] [address] documented as of this encounter Goals Goal Patient Goal Type Associated Problems Recent Progress Patient-Stated? Author Exercise 3x per week (30 min per time) Exercise No Keila Arango, CHRISTIANO documented as of this encounter Visit Diagnoses Not on filedocumented in this encounter Care Teams Cut Out Marker Relationship Specialty Start Date End Date Mitchell Yap MD [address] [place] [address] PCP - General 05/19/10 07/17/23 documented as of this encounter
--- OUTSIDE RECORDS SUMMARY | 2024-04-18 13:14 | XMS_ITS | Encounter Summary ---
[place] [address] Care Team Providers Care Containers Sales Representative Name Role Phone Mitchell Yap MD Primary Care Provider [phone] Encounter Details Date Type Department Care Team (Late st Contact Info) Description 08/14/2021 Orders [place] [phone] Marga Leiva INDUSTRIAL REGISTERED NURSE [facility] [place] [address] Type 1 diabetes mellitus with other specified [...] 10:15 AM EST Office [place] [phone] Namita Bansal MD [facility] [place] [address] documented as of this encounter Goals Goal Patient Goal Type Associated Problems Recent Progress Patient-Stated? Author Exercise 3x per week (30 min per time) Exercise No Keila Arango CDE documented as of this encounter Results * U Albumin/Cre Ratio (09/23/2021 10:15 AM EDT) Albumin / Creatinin Ratio, Urine <4 0 - 29 mcg/mg Cr [facility] Comment: Reference Ranges: <30 mcg/mg: [...] 2, 357? 362 Albumin, Urine <3.0 mg/L [facility] Creatinine, Urine 78 mg/dL [facility] Urine 09/23/2021 10:1 5 AM EDT 09/23/2021 10:26 AM EDT Narrative Resulting Agency Comment Spec In Lab Marga Leiva APRN URINE ORDERABLES [facility] [address] [place] [address] * Creatinine (09/23/2021 9:34 AM EDT) Creatinine 0.72 0.70 - 1.20 mg/dL [facility] Est Glomerular Filtration Rate 88 >=60 mL/min/1. 73 m?? [facility] Comment: This patient? s estimated [...] Comment Spec In Lab Marga Leiva APRN CHEMISTRY ORDERAB LES [facility] [place] [address] * LDL Cholesterol, Direct (09/23/2021 9:34 AM EDT) LDL Cholesterol, Direct 59 mg/dL [facility] Comment: Lowest Risk: <100 mg/dL Lower Risk: 100-129 mg/dL Borderline High Risk: 130-159 mg/dL High Risk: 160-189 mg/dL Very High Risk: >so=955 mg/dL Blood 09/23/2021 9:34 AM EDT 09/23/2021 9:47 AM EDT Narrative Resulting Agency Comment Spec In Lab Marga Leiva APRN CHEMISTRY ORDERAB LES [facility] [place] [address] * (ABNORMAL) Hemoglobin A1c (09/23/2021 9:34 AM EDT) Hemoglobin A1c 7.4(H) 4.3 - 5.6 % [facility] Comment: Reference Range: 4.3 - [...] Mellitus, Diabetes Care 2013; 36: Suppl. 1, O87-53 Estimated Average Glucose 165 mg/dL [facility] Comment: eAG equivalents for HbA1c [...] into estimated average glucose values. ??Diabetes Care 2008:31(8):8809-6416. Blood 09/23/2021 9:34 AM EDT 09/23/2021 9:47 AM EDT Narrative Resulting Agency Comment Spec In Lab Marga Leiva INDUSTRIAL REGISTERED NURSE CHEMISTRY ORDERAB LES [facility] [place] [address] documented in this encounter Visit Diagnoses Diagnosis Type 1 diabetes mellitus with other specified complication documented in this encounter Care Teams Containers Sales Representative Relationship Specialty Start Date End Date Mitchell Yap MD [address] [place] [address] PCP - General 05/19/10 07/17/23 documented as of this encounter
--- OUTSIDE RECORDS SUMMARY | 2024-04-18 13:14 | XMS_ITS | Encounter Summary ---
Author Organization [facility] [place] [address] Care Team Providers Care Rotary Driller Prospecting Name Role Phone Mitchell Yap MD Primary Care Provider [phone] Reason for Visit * Reason Onset Date Comments Post-op Problem 06/16/2021 Ebonie has medica tion questions, she said she did not recieve instructions on her discharge summary. Encounter Details Date Type Department Care Team (Late st Contact Info) Description 06/16/2021 Telephone [place] [phone] Laith Diehl MD [facility] [place] [address] Post-op Problem (Ebonie has medication questions, she said she did not recieve instructions on her discharge summary. ) Social History Tobacco Use Types Packs/Day Years [...] * Telephone Encounter - Deondre Youngblood - 06/16/2021 3:11 PM EST Who is calling? Ebonie Sol calling from her husbands cell in the car. [phone] Best call back number: EBONIE is in her car traveling, but will be home arouind 4:45PM to 5PM you may send her [facility] message or call her at home at [phone] When was your procedure? TODAY Who was your surgeon? DR DIEHL What procedure did you have done? 06-16-21 left trigger finger release What is the question you would like to ask the clinical care team? I DID NOT GET ANY MEDICATION INSTRUCTIONS ON MY DISCHARGE SUMMARY AND NOT SURE WHAT TO DO. documented in this encounter Plan of Treatment Upcoming Encounters Date Type Department Care Team (Late st Contact Info) Description 06/05/2024 10:15 AM EST Office Visit [place] [address] Namita Bansal MD [facility] [place] [address] documented as of this encounter Goals Goal Patient Goal Type Associated Problems Recent Progress Patient-Stated? Author Exercise 3x per week (30 min per time) Exercise No Keila Arango CDE documented as of this encounter Visit Diagnoses Not on filedocumented in this encounter Care Teams Rotary Driller Prospecting Relationship Specialty Start Date End Date Mitchell Yap MD [address] [place] [address] PCP - General 05/19/10 07/17/23 documented as of this encounter
--- OUTSIDE RECORDS SUMMARY | 2024-04-18 13:14 | XMS_ITS | Encounter Summary ---
[place] [address] Care Team Providers Care Home Service Technician Name Role Phone Mitchell Yap MD Primary Care Provider [phone] Reason for Visit * Reason Onset Date Comments Prior Authorization 07/13/2021 Encounter Details Date Type Department Care Team (Late st Contact Info) Description 07/13/2021 Telephone [place] [phone] Namita Cordero Prior Authorization Social History Tobacco [...] * Telephone Encounter - Namita Cordero - 07/14/2021 11:53 AM EST Images from the original note were not included. Medication Prior Authorization Andres ? Medication name/dose/directions: Contour Next Test Strips - test 8x daily ?? Rationale for request: Type I DM ?? Health plan: [place] ([place]) ?? Authorizing technical support representative name: Nedra ?? Sent to health plan on: 07/14/21 ?? Health plan decision: ?? Quantity approved: ?? Authorization number: [id number] ?? Start date: End date: * Telephone Encounter - Namita Cordero - 07/13/2021 8:22 AM EST Received PA for contour next test strips Will complete as soon as possible documented in this encounter Plan of Treatment Upcoming Encounters Date Type Department Care Team (Late st Contact Info) Description 06/05/2024 10:15 AM EST Office Visit [place] [address] Namita Bansal MD [facility] [place] [address] documented as of this encounter Goals Goal Patient Goal Type Associated Problems Recent Progress Patient-Stated? Author Exercise 3x per week (30 min per time) Exercise No Keila Arango, CDE documented as of this encounter Visit Diagnoses Not on filedocumented in this encounter Care Teams Home Service Technician Relationship Specialty Start Date End Date Mitchell Yap MD [address] [place] [address] PCP - General 05/19/10 07/17/23 documented as of this encounter
--- OUTSIDE RECORDS SUMMARY | 2024-04-18 13:14 | XMS_ITS | Encounter Summary ---
Author Organization [facility] [place] [place] [address] Care Team Providers Care Horse Rider Name Role Phone Mitchell Yap MD Primary Care Provider [phone] Encounter Details Date Type Department Care Team (Latest Contact Info) Description 11/03/2020 2:45 PM EDT TH Visit (TeleHealth) [place] [address] Norris Campos MD [facility] [place] [address] Type 1 diabetes mellitus with other specified [...] PM EDT documented as of this encounter Progress Notes * Norris Campos MD - 11/03/2020 2:45 PM EDT Ms. Ebonie Sol is an 65 y.o. female who presents for ongoing care of Diabetes type 1 TELEPHONE FOLLOWUP VISIT Patient verbally consents to this telehealth visit and understands that this visit may be billed, similar to a clinic office visit Former patient of Dr Rojas Interval history: Notable medical comorbidities: hypoglycemia unawareness, HTN Running 670G medtronic pump in automode the majority of the time. Unfortunately, she cannot upload her data to our secure [employer] account right now so I am unable to see her settings or recent bloodsugar CGM trends. Her avg blood sugar recently is 160, range 62-321. She checks her glucose at least 5 times daily using Guardian CGM. She has found the new pump helpful to avoid hypoglycemia, because she has unawareness and the pump has suspend feature She has a variable work schedule and she has found it hard to transition from the intense work daysto other days when is at home: she finds that her blood sugars vary widely depending on the day. She has worked to improve her diet since the last visit Eye doctor: Saw eye doctor in last few months Vaccinated against coronavirus Hypoglycemia: she has a supply of glucagon Current DM meds (as written in last clinic note) Insulin pump medtronic 670g - just started using it 6 days ago Basal rates: MN 0.45 3a 0.45 10a 0.475 5p 0.55 6p 0.475 9p 0.425 ?? CR MN 14 12:30p 13 6:30p 14 ?? CF 55 Target 110 - 140 ?? Current Outpatient Medications: ??? Contour Next Test Strips Strip, TEST 8 TIMES A DAY. DX: E10.9, Disp: 700 strip, Rfl: 3 ??? insulin lispro (humaLOG) Solution, INJECT 40-50 UNITS SUBCUTANEOUSLY CONTINUOUS VIA PUMP, Disp:50 mL, Rfl: 3 ??? zoledronic qmsx-vwwwkvea-xvblg (zoledronic Acid) 5 mg/100 mL IV solution, Inject 5 mg into the vein., Disp: , Rfl: ??? insulin needles, disposable, (BD ULTRA-FINE SHORT PEN NEEDLE) 31 gauge x 5/16 Needle, 1 Box byMisc.(Non-Drug; Combo Route) route 4 times daily. Box of 100 (Patient not taking: Reported on 07/14/2020), Disp: 1 each, Rfl: 3 ??? insulin glargine (LANTUS SOLOSTAR U-100 INSULIN) 100 unit/mL (3 mL) pen, Inject 10 Units subcutaneously daily. (Patient not taking: Reported on 07/14/2020), Disp: 15 mL, Rfl: 3 ??? insulin lispro (HUMALOG) Insulin Pen, Inject 0-10 Units subcutaneously 3 times daily (before meals). Based on carb count and insulin sliding scale (Patient not taking: Reported on 07/14/2020), Disp: 15 mL, Rfl: 3 ??? MAGNESIUM ORAL, Take by mouth daily., Disp: , Rfl: ??? ONETOUCH ULTRA BLUE TEST STRIP Strip, Use 1 strip at each glucose test 8 times daily. ICD 10 Code: E10.9 (Patient not taking: Reported on 11/13/2019), Disp: 800 strip, Rfl: 3 ??? acetaminophen (TYLENOL) 500 mg Tablet, Take 1,000 mg by mouth every 6 hours as needed for Pain., Disp: , Rfl: ??? ibuprofen (ADVIL;MOTRIN) 200 mg Tablet, Take 600 mg by mouth daily as needed for Pain., Disp: ,Rfl: ??? alendronate (FOSAMAX) 70 mg Tablet, Take 70 mg by mouth every 7 days. , Disp: , Rfl: ??? calcium-vitamin D3 (CALCIUM 600 + D,3,) 600 mg(1,500mg) -400 unit Tablet, Take 1 tablet by mouth 2 times daily., Disp: , Rfl: ??? Diabetic Supplies, [facility]. [facility] faxed to [employer], Disp: 100 each, Rfl: 12 ??? Diabetic Supplies, [facility]. [facility], PWO faxed to [facility] Medical, Disp: 100 each, Rfl: 12 ??? ADVAIR DISKUS 100-50 mcg/dose Disk with Device, Inhale 1 puff into the lungs daily., Disp: , Rfl: ??? Diabetic Supplies, [facility]isc[facility]an. [facility], Form faxed to [facility] for insulin pump supplies, Disp: 1 each, Rfl: 3 ??? multivitamin with minerals (THERA-M) 9-0.4 mg Tablet, Take 1 tablet by mouth daily., Disp: , Rfl: ??? lisinopril (PRINIVIL;ZESTRIL) 20 mg Tablet, Take 1 tablet by mouth daily., Disp: 30 tablet, Rfl: Past Medical History: Diagnosis Date ??? Asthma ??? GERD (gastroesophageal reflux disease) ??? Hypertension ??? Median nerve injury ??? Type 1 diabetes Patient Active Problem List Diagnosis ??? Trigger thumb of left hand ??? 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 Carpal tunnel syndrome on left ??? Hypertension Overview Note: ??? CIS - Entered not Verified ??? CIS - type 1 DM Overview Note: in excellent control using an insulin pump and CGMS. Diagnosed at age 7 Physical Exam: Not applicable Radiology Studies: Laboratory Data: Assessment / Plan: 1) Diabetes Mellitus Type 1, controlled Recent glucose avg correlates to A1c 7-7.5% I provided instructions for her to upload her pump data to [employer] for me to review. She will senda message to let me know when she has done this. She will get routine labs drawn in near future at [facility] health: Given that she has had DM1 for >20 years, per Endo Society guidelines I strongly suggested that she start a statin. She wanted to think about it and preferred not to start it right now. Please do not hesitate to contact me with questions Time statement: I spent 40 total minutes on this visit today. The time was spent on the phone with the patient, on chart review and documentation, ordering labs/studies and coordination of care Return to clinic 4 months to see Martha Lal OCCUPATIONAL THER or Marga Leiva OCCUPATIONAL THER for ongoing DM care. She prefers in person visits Norris Campos MD Internet Marketing Strategistslot machine mechanic Endocrinology Section [facility] documented in this encounter Plan of Treatment Upcoming Encounters Date Type Department Care Team (Late st Contact Info) Description 06/05/2024 10:15 AM EST Office [place] [address] Namita Bansal MD [facility] [place] [address] documented as of this encounter Goals Goal Patient Goal Type Associated Problems Recent Progress Patient-Stated? Author Exercise 3x per week (30 min per time) Exercise No Keila Arango CDE documented as of this encounter Results * TSH (03/25/2021 8:56 AM EDT) Thyroid Stimulating Hormone 2.39 0.27 - 4.20 mcIU/mL [facility] Comment: Reference Interval (mcIU/mL): Females: ??First Trimester: 0.23-3.88 ??Second Trimester: 0.22-3.90 ??Third Trimester: 0.44-4.66 Blood 03/25/2021 8:56 AM EDT 03/25/2021 9:05 AM EDT Narrative Resulting Agency Comment Spec In Lab Norris Campos MD CHEMISTRY ORDERABLE S Performing Organization Address [facility] Co de Phone Number [facility] [place] [address] * Potassium (03/25/2021 8:56 AM EDT) Potassium 4.1 3.5 - 5.0 mmol/L [facility] Comment: Please note: ??Patients [...] MD CHEMISTRY ORDERABLE S Performing Organization Address City/[facility]/ZIP Co de Phone Number [facility] [place] [address] * Creatinine (03/25/2021 8:56 AM EDT) Creatinine 0.78 0.70 - 1.20 mg/dL [facility] Est Glomerular Filtration Rate 80 >=60 mL/min/1. 73 m?? [facility] Comment: This patient? s [...] Lab Norris Campos MD CHEMISTRY ORDERABLE S [facility] [place] [address] documented in this encounter Visit Diagnoses Diagnosis Type 1 diabetes mellitus with other specified complication documented in this encounter Care Teams Horse Rider Relationship Specialty Start Date End Date Mitchell Yap MD [address] [place] [address] PCP - General 05/19/10 07/17/23 documented as of this encounter
--- OUTSIDE RECORDS SUMMARY | 2024-04-18 13:14 | XMS_ITS | Encounter Summary ---
[place] [address] Care Team Providers Care Software Systems Engineer Name Role Phone Mitchell Yap MD Primary Care Provider [phone] Reason for Visit * Reason Onset Date Comments Prior Authorization 04/09/2021 Encounter Details Date Type Department Care Team (Late st Contact Info) Description 04/09/2021 Telephone [place] [address] Namita Cordero Prior Authorization Social History Tobacco [...] * Telephone Encounter - Namita Cordero - 04/09/2021 8:18 AM EDT Medication Prior Authorization [place] Medication name/dose/directions: Guardian Sensor Rationale for request: Type I DM Health plan: [place] Medicaid (Fax) Authorizing patient accounting representative name: Nedra Sent to health plan on: 04/09/21 Health plan decision: Approved Quantity approved: 5 for 35 days Authorization number: [id number] Start date: 04/09/21 End date: 04/09/22 documented in this encounter Plan of Treatment Upcoming Encounters Date Type Department Care Team (Late st Contact Info) Description 06/05/2024 10:15 AM EST Office [place] [address] Namita Bansal MD [facility] [place] [address] documented as of this encounter Goals Goal Patient Goal Type Associated Problems Recent Progress Patient-Stated? Author Exercise 3x per week (30 min per time) Exercise No Keila Arango CDE documented as of this encounter Visit Diagnoses Not on filedocumented in this encounter Care Teams Software Systems Engineer Relationship Specialty Start Date End Date Mitchell Yap MD [address] [place] [address] PCP - General 05/19/10 07/17/23 documented as of this encounter
--- OUTSIDE RECORDS SUMMARY | 2024-04-18 13:14 | XMS_ITS | Encounter Summary ---
Author Organization [facility] [place] [address] Care Team Providers Care Lehr Operator Name Role Phone Mitchell Yap MD Primary Care Provider [phone] Encounter Details Date Type Department Care Team (Late st Contact Info) Description 03/31/2021 Orders Only [place] [address] Namita Brar PA [facility] [place] [address] Trigger index finger of left hand Social [...] 10:15 AM EST Office Visit [place] [address] Namita Bansal MD [facility] [place] [address] documented as of this encounter Goals Goal Patient Goal Type Associated Problems Recent Progress Patient-Stated? Author Exercise 3x per week (30 min per time) Exercise No Keila Arango, CHRISTIANO documented as of this encounter Visit Diagnoses Diagnosis Trigger index finger of left hand Trigger finger (acquired) documented in this encounter Care Teams Lehr Operator Relationship Specialty Start Date End Date Mitchell Yap MD [address] [place] [address] PCP - General 05/19/10 07/17/23 documented as of this encounter
--- OUTSIDE RECORDS SUMMARY | 2024-04-18 13:14 | XMS_ITS | Encounter Summary ---
Author Organization [facility] [place] [address] Care Team Providers Care Chain Hoist Operator Name Role Phone Mitchell Yap MD Primary Care Provider [phone] Reason for Visit * Auth/Cert Specialty Diagnoses / Procedures Referred By Malka vera Referred To Contact Diagnoses Trigger index finger of left hand Left index trigger finger Procedures PRO INCISE FINGER TENDON SHEATH TENDON SHEATH INCISION (TRIGGER FINGER) (WRVU 3.11) Referral ID Status Reason Start Date Expiration Date Visits Re quested Visits Authorized [id number] 1 1 Encounter Details Date Type Department Care Team (Late st Contact Info) Description 06/16/2021 1:27 PM EST - 06/16/2021 2:12 PM EST Surgery [facility] [place] [address] Jean Diehl MD [facility] [place] [address] TENDON SHEATH INCISION (TRIGGER FINGER) (WRVU 3.11) [...] Sign Reading Time Taken Comments Blood Pressure 135/64 06/16/2021 2:01 PM EST Pulse 77 06/16/2021 2:01 PM EST Temperature 36.3 ??C (97.3 ??F) 06/16/2021 2:01 PM ES T Respiratory Rate 18 06/16/2021 2:01 PM EST Oxygen Saturation 100% 06/16/2021 2:01 PM EST Inhaled Oxygen Concentration - - [...] During clinic hours M-F 8-4:30 please call [phone] If it is after 5:00PM on a weekday or a weekend and it is of an urgent nature please call [phone] and ask for the on-call orthopaedic resident. [...] Center 06/29/2021 11:20 AM Namita Brar PA [facility] ORTH 3A [facility] 06/29/2021 1:45 PM Norris Campos MD [facility] ENDO [facility] 09/23/2021 10:30 AM Marga Leiva APRN [facility] documented in this encounter Medications at Time of Discharge Medication Sig Dispensed Refills Start Date End Date atorvastatin (Lipitor) 20 mg Tablet TAKE ONE TABLET BY MOUTH AT BEDTIME 02/24/2021 glucagon, Human Recombinant, 1 mg Recon Soln as needed. 10/19/2018 pantoprazole EC (Protonix) 40 mg Tablet, Delayed Release (E.C.) TAKE ONE TABLET BY MOUTH EVERY DAY 10/10/2020 zoledronic qejz-uiqyfevo-toukn (zoledronic Acid) 5 mg/100 mL IV solution Inject 5 mg into the vein. Yearly insulin needles, disposable, (BD ULTRA-FINE SHORT PEN NEEDLE) 31 gauge x 5/16 Needle 1 Box by [facility]Non-Drug; Combo Route) route 4 times daily. Box of 100 1 each 3 06/26/2019 MAGNESIUM ORAL Take by mouth daily. acetaminophen (TYLENOL) 500 mg Tablet Take 1,000 mg by mouth every 6 hours as needed for Pain. ibuprofen (ADVIL;MOTRIN) 200 mg Tablet Take 600 mg by mouth daily as needed for Pain. Diabetic Supplies, [facility]. [facility] 12 02/24/2017 Diabetic Supplies, [place]iscellan. [facility] [place] fax[facility] to [facility] 100 each 12 01/17/2017 ADVAIR DISKUS 100-50 mcg/dose Disk with Device Inhale 1 puff into the lungs daily. 11/23/2016 Diabetic Supplies, [place]iscellan. [facility] [place] faxed to [facility] for insulin pump supplies 1 each 3 [...] Type 1 diabetes mellitus without complication, with exterminator current use of insulin pump INJECT 40-50 [...] LIGAMENT performed by Jean Diehl MD at [facility] ??? PRO INCISE FINGER TENDON SHEATH Left 06/10/2016 TENDON SHEATH INCISION (TRIGGER FINGER) (WRVU 3.11) performed by Jean Diehl MD at [facility] ??? PRO INCISE FINGER TENDON SHEATH Left 09/26/2018 TENDON SHEATH INCISION (TRIGGER FINGER) (WRVU 3.11) performed by Jean Diehl MD at [facility] ??? PRO INCISE FINGER TENDON SHEATH Right 10/10/2018 TENDON SHEATH INCISION (TRIGGER FINGER) (WRVU 3.11) performed by Jean Diehl MD at [facility] ??? PRO INCISE FINGER TENDON SHEATH Right 05/19/2021 TENDON SHEATH INCISION (TRIGGER FINGER) (WRVU 3.11) performed by Jean Diehl MD at [facility] Home Medications: Medications Prior to [...] DX: E10.9 700 strip 3 ??? zoledronic lwip-jtlfgmes-rhrbh (zoledronic Acid) 5 mg/100 mL IV solution Inject 5 mg into the vein. Yearly ??? insulin needles, disposable, (BD ULTRA-FINE SHORT PEN NEEDLE) 31 gauge x 5/16 Needle 1 Box by [facility]Non-Drug; Combo Route) route 4 times daily. Box [...] needed for Pain. ??? Diabetic Supplies, Miscellan. [facility] [place] faxed to [employer] 100 each 12 ??? Diabetic Supplies, Miscellan. [facility] [place] faxed to [facility] Medical 100 each 12 ??? ADVAIR DISKUS 100-50 mcg/dose Disk with Device Inhale 1 puff into the lungs daily. ??? Diabetic Supplies, Miscellan. [facility] [place] faxed to [facility] for insulin pump supplies 1 each 3 ??? multivitamin with minerals (THERA-M) 9-0.4 mg Tablet Take 1 tablet by mouth daily. ??? lisinopril (PRINIVIL;ZESTRIL) 20 mg Tablet Take 1 tablet by mouth daily. 30 tablet Allergies: Allergies Allergen Reactions ??? Penicillins Anaphylaxis ??? Codeine Nausea And Vomiting ??? Prochlorperazine ??? Reclast [Zoledronic Hdcc-Hjmekicj-Fpobl] VERTIGO ??? Naproxen Family History: Non contributory [...] Diehl MD - 06/16/2021 1:40 PM EST [facility] Operative Note Patient Name: Ebonie Sol : [id number] MR#: [id number] Case Date: 06/16/2021 Surgeon: Surgeon(s) and Role: [...] A preoperative timeout was performed as per [facility] protocol. Then 3 mL of 1% lidocaine [...] Operative Note Patient Name: Ebonie Sol : [id number] MR#: [id number] Case Date: 06/16/2021 Surgeon: Surgeon(s) and Role: [...] 10:15 AM EST Office [place] [address] Namita Bansal MD [facility] [place] [address] documented as of this encounter Goals Goal Patient Goal Type Associated Problems Recent Progress Patient-Stated? Author Exercise 3x per week (30 min per time) Exercise Keila Espinoza CDE documented as of this encounter Procedures Procedure Name Priority Date/Time Associated Diagnosis Comments Incise Finger Tendon Sheath (82055) 06/16/2021 1:28 PM EST Trigger index finger of left hand TENDON SHEATH INCISION (TRIGGER FINGER) Routine 06/16/2021 12:08 PM EST Trigger index finger of left hand documented in this encounter Visit Diagnoses Diagnosis Trigger index finger of left hand Trigger finger (acquired) Trigger index finger [...] Procedure), Routine lidocaine-EPINEPHrine (1% - 1:100,000) injection ONCE PRN, Starting on Tue06/16/21 at 1343, Until Tue06/16/21 at 1654, Intra-Operative (Intra-Procedure), Routine Given 06/16/2021 1:43 PM EST 3 mLs 19- Surgical Site naloxone (Narcan) (0.4 mg/mL) injection 0.04 mg [...] Routine documented in this encounter Care Teams Chain Hoist Operator Relationship Specialty Start Date End Date Mitchell Yap MD [address] [place] [address] PCP - General 05/19/10 07/17/23 documented as of this encounter
--- OUTSIDE RECORDS SUMMARY | 2024-04-18 13:14 | XMS_ITS | Encounter Summary ---
[place] [address] Care Team Providers Care General Worker Name Role Phone Mitchell Yap MD Primary Care Provider [phone] Reason for Visit * Reason Onset Date Comments Pump/sensor 08/18/2021 Encounter Details Date Type Department Care Team (Late st Contact Info) Description 08/18/2021 Tele[place] [address] Namita Cordero Pump/sensor Social History Tobacco Use [...] Telephone Encounter - Sofie Richardson I - 08/28/2021 7:41 AM EST [employer] form faxed to [phone] on 08/28/21 * Telephone Encounter - Namita Cordero - 08/24/2021 10:22 AM EST Prescription from [employer]. Filled out. Dr. Vallecillo will sign. Secretaries will fax. * Telephone Encounter - Namita Cordero - 08/18/2021 8:58 AM EST Received prescription from [employer] Will complete as soon as possible documented in this encounter Plan of Treatment Upcoming Encounters Date Type Department Care Team (Late st Contact Info) Description 06/05/2024 10:15 AM EST Office [place] [address] Namita Bansal MD [facility] [place] [address] documented as of this encounter Goals Goal Patient Goal Type Associated Problems Recent Progress Patient-Stated? Author Exercise 3x per week (30 min per time) Exercise No Keila Arango, CHRISTIANO documented as of this encounter Visit Diagnoses Not on filedocumented in this encounter Care Teams General Worker Relationship Specialty Start Date End Date Mitchell Yap MD [address] [place] [address] PCP - General 05/19/10 07/17/23 documented as of this encounter
--- OUTSIDE RECORDS SUMMARY | 2024-04-18 13:14 | XMS_ITS | Encounter Summary ---
Author Organization [facility] [place] [address] Care Team Providers Care M48/M60 Tank Driver Name Role Phone Mitchell Yap MD Primary Care Provider [phone] Encounter Details Date Type Department Care Team (Late st Contact Info) Description 06/29/2021 1:45 PM EST Office [place] [address] Norris Campos MD [facility] [place] [address] Type 1 diabetes mellitus with other specified [...] Sign Reading Time Taken Comments Blood Pressure 118/56 06/29/2021 1:12 PM EST Pulse 83 06/29/2021 1:12 PM EST Temperature 36.4 ??C (97.6 ??F) 06/29/2021 1:12 PM ES T Respiratory Rate - - Oxygen Saturation 100% 06/29/2021 1:12 PM EST Inhaled Oxygen Concentration - - Weight 54.4 kg (120 lb) 06/29/2021 1:12 PM EST Height 151.8 cm (4' 11.75) 06/29/2021 1:[address] Body Mass Index 23.63 06/29/2021 1:12 PM EST documented in this encounter Progress Notes * Norris Campos MD - 06/29/2021 1:45 PM EST Ms. Ebonie Sol is an 66 y.o. female who presents for ongoing care of Diabetes type [address] Rojas, has seen me in past and most recently in Feb 2021 Marga Leiva. No changes were made to her 670G pump at time of last visit Interval history: Notable medical comorbidities: hypoglycemia unawareness, HTN Since she last saw me, she has been under more significant stress because her has had a number of recent serious health issues. She has taken on significant caregiving duties and believes this has left her less time for self care. Her eating is somewhat more erratic, for example many days she does not have lunch or may just have a small snack. She notices at times a significant different between her sensor and blood glucose values. She normally wears the sensor on her abdomen but is interested in trying it on the back of her arm. She has noticed some worsening of her cognition and intends to schedule a followup visit with neurology. She was seen in past by neurology/psychiatry and had no evidence of dementia or other serious cognitive problem on formal testing CV health: takes lisinopril, after last visit started atorvastatin given history of DM1 over 20 years Eye doctor: sees regularly, no vision problems Vaccinated against coronavirus Hypoglycemia: she has a supply of glucagon Podiatry: sees regularly Current DM meds Insulin pump medtronic 670g Basal rates: MN 0.5 2a 0.55 5a 0.5 10a 0.45 2p 0.475 5p 0.575 6p 0.525 9p 0.450 ?? CR MN 14 12:30p 13 6:30p 14 ?? CF 55 Target 110 - 140 Active insulin time 4 hrs ?? Current Outpatient Medications: ??? traMADoL (Ultram) 50 mg Tablet, Take 1 tablet by mouth every 6 hours as needed for Pain., Disp:5 tablet, Rfl: 0 ??? cyclobenzaprine (Flexeril) 5 mg Tablet, TAKE [...] BY MOUTH EVERYDAY, Disp: , Rfl: ??? Contour Next Test Strips Strip, TEST 8 TIMES A DAY. DX: E10.9, Disp: 700 strip, Rfl: 3 ??? zoledronic jpun-oxbpxdiu-hvgml (zoledronic Acid) 5 mg/100 mL IV solution, [...] Pain., Disp: ,Rfl: ??? Diabetic Supplies, Miscellan. Misc, CMN form faxed to [employer], Disp: 100 each, Rfl: 12 ??? Diabetic Supplies, Miscellan. [facility], PWO faxed to [facility], Disp: 100 each, Rfl: 12 ??? ADVAIR DISKUS 100-50 mcg/dose Disk with Device, Inhale 1 puff into the lungs daily., Disp: , Rfl: ??? Diabetic Supplies, Miscellan. [facility], Form faxed to [facility] diabetes for insulin pump supplies, Disp: 1 each, Rfl: 3 ??? multivitamin with minerals (THERA-M) 9-0.4 mg Tablet, Take 1 tablet by mouth daily., Disp: , Rfl: ??? lisinopril (PRINIVIL;ZESTRIL) 20 mg Tablet, Take 1 tablet by mouth daily., Disp: 30 tablet, Rfl: Past Medical History: Diagnosis Date ??? A1 jeannette release left index finger 06/16/21 Dr. Diehl 05/28/2016 ??? Asthma ??? GERD (gastroesophageal reflux disease) ??? Hypertension ??? Median nerve injury ??? Type 1 diabetes Patient Active Problem List Diagnosis ??? s/p [...] CGMS. Diagnosed at age 7 Physical Exam: BP 118/56 Pulse 83 Temp 36.4 ??C (97.6 ??F) Ht 151.8 cm (4' 11.75) Wt 54.4 kg (120 lb) SpO2 100% BMI 23.63 kg/m?? General: no acute distress, pleasant, sitting comfortably Face: wearing mask Neck: no supraclavicular fat pads; trachea midline Respiratory: symmetrical chest expansion, breathing comfortably on room air Cardiovascular: 2+ DP pulses, regular rhythm Musculoskeletal: moving all 4 extremities normally; normal female musculature Skin: normal temperature/texture, no foot wounds Neurological: no tremors; normal sensation on feet to 10g monofilament Psychological: alert/oriented to person, place, time; normal affect; memory intact; normal judgement/insight Radiology Studies: Laboratory Data: Component Latest Ref Rng & Units 03/25/2021 Creatinine 0.70 - 1.20 mg/dL 0.78 Estimated GFR >=60 mL/min/1.73 m?? 80 TSH 0.27 - 4.20 mcIU/mL 2.39 Potassium 3.5 - 5.0 mmol/L 4.1 Assessment / Plan: 1) Diabetes Mellitus Type 1, controlled Estimated A1c 6.6% indicating overall good control Her average glucose control on her pump [...] if she does do a manual bolus. She plans to try to move the guardian sensor to a different location such as her arm to see if she will get a better correlation between blood glucose and sensor reading. We did discuss that there issome natural expected variation between the two values Check routine labs in the near future at [facility] (she tells me it will be nonfasting) CV health: she is taking an STEFANY-I and statin. Check lipid panel RTC August 2021 for scheduled visit with Marga Campos MD [employer] demand Endocrinology Section [facility] * Norris Campos MD - 06/29/2021 1:45 PM EST Continuous Glucose Monitoring (CGM) Interpretation I reviewed 72 hours + of Holiday Propanetronic CGM data. There is a trend for repeated hypoglycemia or borderline hypoglycemia after bedtime correction bolus 14 day data 06/16/21-06/29/21 Average blood glucose 151 Average sensor glucose 137 56% bolus 44% basal GMI 6.6% documented in this encounter Plan of Treatment Upcoming Encounters Date Type Department Care Team (Late st Contact Info) Description 06/05/2024 10:15 AM EST Office [place] [address] Namita Bansal MD [facility] [place] [address] documented as of this encounter Goals Goal Patient Goal Type Associated Problems Recent Progress Patient-Stated? Author Exercise 3x per week (30 min per time) Exercise No Keila Arango, CDLulu documented as of this encounter Visit Diagnoses Diagnosis Type 1 diabetes mellitus with other specified complication documented in this encounter Care Teams M48/M60 Tank Driver Relationship Specialty Start Date End Date Mitchell Yap MD [address] [place] [id number] PCP - General 05/19/10 07/17/23 documented as of this encounter
--- OUTSIDE RECORDS SUMMARY | 2024-04-18 13:14 | XMS_ITS | Encounter Summary ---
Author Organization [facility] [place] [address] Care Team Providers Care Power Brake Operator Name Role Phone Mitchell Yap MD Primary Care Provider [phone] Reason for Visit * Auth/Cert Specialty Diagnoses / Procedures Referred By Contenrique t Referred To Contact Diagnoses Trigger index finger of left hand Left index trigger finger Procedures PRO INCISE FINGER TENDON SHEATH TENDON SHEATH INCISION (TRIGGER FINGER) (WRVU 3.11) Referral ID Status Reason Start Date Expiration Date Visits Re quested Visits Authorized [id number] 1 1 Encounter Details Date Type Department Care Team (Late st Contact Info) Description 06/16/2021 1:28 PM EST Anesthesia Event [place] [address] Loida Carter MD [facility] [place] [address] Anesthesia Record Procedure Summary Procedure Name Responsible Anesthesiologist Anesthesia Start Time Anesthesia Stop Time TENDON SHEATH INCISION (TRIGGER FINGER) (WRVU 3.11) (Left: Finger) Loida Carter MD 06/16/21 1328 06/16/21 1403 Events Date Time Event Comment 06/16/2021 1239 1328 AN Verify Pt unaware of h ypoglyemic events - BG now 148 per pump, okay to check again in PACU 1328 Start 1328 An Start Data 1341 An Tourn Inflated 1350 An Tourn Deflated 1357 an stop data 1403 Recovery or ICU Handoff Deya ent care was transferred to the destination unit staff after review of the patient's medical history, current anesthetic/surgical status and plan, according to the Provider Handoff Checklist. 1403 Stop Meds Name Total Midazolam 2 mg fentaNYL 100 mcg IV Lidocaine 50 mg Propofol 50 mg Ondansetron 8 mg lactated ringers infusion 700 mL * Agents Name O2 Air N2O * Blood No blood administrations on file. Lines, Drains, and Airways Type Details Placement Removal Incision 05/19/21; 1001; Right; third finger 05/19/21 1001 by Sammie Cordero RN Incision 06/16/21; 1341; Left; palm 06/16/21 1341 by Tamara Georges RN Incision 09/26/18; third finger; Left long finger; 02/22/22 (LDA cleanup utility RA#[id number]); 1715 (LDA cleanup utility RA#[id number]) 09/26/18 0000 by Lin Walls RN 02/22/22 1715 by Evita Ramos Incision 10/10/18; 0924; second finger; 02/22/22 (LDA cleanup utility RA#[id number]); 1715 (LDA cleanup utility RA#[id number]) 10/10/18 0924 by Ava Del Real RN 02/22/22 1715 by Evita Ramos (RETIRED) Peripheral IV Line - Single Lumen 06/16/21; 1242; median cubital vein (antecubital fossa), right; 22 gauge; 06/16/21; 1451 06/16/21 1242 by Rayshawn Jaime RN 06/16/21 1451 by Tamika Parisi, RN documented in this encounter Social History [...] OR Notes * Anesthesia Postprocedure Evaluation - Loida Carter MD - 06/16/2021 2:23 PM EST Department of Anesthesiology Post-procedure Note Patient: Ebonie Sol Procedure Summary Date: 06/16/21 Room / Location: [address] [facility] Anesthesia Start: 1328 Anesthesia Stop: 1403 Procedure: TENDON SHEATH INCISION (TRIGGER FINGER) (WRVU 3.11) (Left Finger) Diagnosis: Trigger index finger of left hand (Left index trigger finger) Surgeons: Laith Diehl MD Responsible Provider: Loida Carter MD Anesthesia Type: general ASA Status: 2 All Anesthesia Providers: Anesthesiologist: Loida Carter MD UPHOLSTERY REPAIRER: Milena Stacy CRNA Vitals Value Taken Time BP 135/64 06/16/21 1404 Temp 36.3 ??C (97.3 ??F) 06/16/21 1401 Pulse 73 06/16/21 1423 Resp 18 06/16/21 1401 SpO2 97 % 06/16/21 1423 Pain Level 0 06/16/21 1401 Vitals shown include unvalidated device data. Patient Location: PACU/[facility] Level of Consciousness: Awake and Alert Pain Management: Satisfactory Analgesia PONV: None Cardiovascular Status: At Baseline and Hemodynamically Stable Respiratory Status: At Baseline and Room Air Postoperative Fluid Status: Intravascular EUvolemia Possible Anesthetic Complications: NONE apparent at time of evaluation Final Primary Anesthesia Type: MAC (The anesthetic type performed was the same as planned.) Comments: Checking own blood sugar. Pt did great. Quite sensitive to narcotics, would give less next time LOIDA CARTER MD * Anesthesia Preprocedure Evaluation - Loida Carter MD - 06/15/2021 3:33 PM EST Pre-Anesthesia Evaluation for: Ebonie Sol a 66 y.o. female. Procedure(s): TENDON SHEATH INCISION (TRIGGER FINGER) (WRVU 3.11) Patient Active Problem List Diagnosis ??? s/p A1 jeannette release right long finger with Dr. Diehl 05/19/2021 ??? Trigger thumb of left hand ??? [...] LIGAMENT performed by Laith Diehl MD at [facility] ??? PRO INCISE FINGER TENDON SHEATH Left 06/10/2016 TENDON SHEATH INCISION (TRIGGER FINGER) (WRVU 3.11) performed by Laith Diehl MD at [facility] ??? PRO INCISE FINGER TENDON SHEATH Left 09/26/2018 TENDON SHEATH INCISION (TRIGGER FINGER) (WRVU 3.11) performed by Laith Diehl MD at [facility] ??? PRO INCISE FINGER TENDON SHEATH Right 10/10/2018 TENDON SHEATH INCISION (TRIGGER FINGER) (WRVU 3.11) performed by Laith Diehl MD at [facility] ??? PRO INCISE FINGER TENDON SHEATH Right 05/19/2021 TENDON SHEATH INCISION (TRIGGER FINGER) (WRVU 3.11) performed by Laith Diehl MD at [facility] Social History Tobacco Use ??? Smoking status: Former Smoker Types: Cigarettes ??? Smokeless tobacco: Never Used ??? Tobacco comment: quit 1978 Substance Use Topics ??? Alcohol use: Not Currently Comment: Stopped Feb 17, 2018 Social History Substance and Sexual Activity Drug Use No Allergies Allergen Reactions ??? Penicillins Anaphylaxis ??? Codeine Nausea And Vomiting ??? Prochlorperazine ??? Reclast [Zoledronic Tztk-Ftsyvqje-Nafkg] VERTIGO ??? Naproxen Medications: MAR and/or home medications have been reviewed. Physical Exam: Preprocedure Vitals Current as of 06/15/21 1533 No BP, pulse, respiration, SpO2, or temperature recorded. Height: Weight: BMI: IBW: 39.1 kg (86 lb 3.6 oz) Airway Assessment: Mallampati: II TM distance: >3 FB Neck ROM: full Cardiovascular Assessment: Rhythm: regular Pulmonary Assessment: breath sounds clear to auscultation Dental Assessment: Misc Assessment: IV access: Peripheral line Last Filed Perioperative Cognitive Screening None Anesthesia Plan: ASA 2 general, with a(n) intravenous induction 66 y/o here for left finger trigger release index PMH: HTN, asthma, type 1 DM - has insulin pump, checked 2 hours ago 248, now 130 ( pt doesn't believe - on a basal rate), GERD well controlled, former smoker PSH: CTR, finger surgery, C/S, no problems with anesthesia Plan : sedation, tylenol The patient was informed of the risks of anesthesia, and consent was obtained. These risks include,but are not limited to, PONV, pain, intraop awareness (expected), conversion to general anesthesia,and other rare but serious complications such as major organ damage, allergies, blood transfusions,and dental/lip trauma. Region - Other Informed Consent: Anesthetic plan and risks discussed with patient. Plan discussed with UPHOLSTERY REPAIRER. Anesthesia Screening documented in this encounter Plan of Treatment Upcoming Encounters Date Type Department Care Team (Late st Contact Info) Description 06/05/2024 10:15 AM EST Office [place] [address] Namita Bansal MD [facility] [place] [address] documented as of this encounter Goals Goal Patient Goal Type Associated Problems Recent Progress Patient-Stated? Author Exercise 3x per week (30 min per time) Exercise No Keila Arango CDE documented as of this encounter Visit Diagnoses Not on filedocumented in this encounter Administered Medications Inactive Administered Medications - up to 3 most recent administrations Medication Order MAR Action Action Date Dose Rate Site fentaNYL (pf) (50 mcg/mL) multi-dose injection Intravenous, PRN, Starting on 06/16/21 at 1331, Until 06/16/21 at 1406, Anesthesia Intra-op, Routine Given 06/16/2021 1:36 PM EST 25 mcg Given 06/16/2021 1:34 PM EST 25 mcg Given 06/16/2021 1:31 PM EST 25 mcg lactated ringers infusion 1,000 mL, at 100 mL/hr, Intravenous, CONTINUOUS, Starting on e 06/16/21 at 1230, Until Tue06/16/21 at 1654, Day of Surgery (Day of Procedure) New Bag 06/16/2021 1:11 PM EST lidocaine (pf) (Xylocaine) (20 mg/mL) 2% injection syringe Intravenous, PRN, Starting on 06/16/21 at 1347, Until 06/16/21 at 1406, Anesthesia Intra-op, Routine Given 06/16/2021 1:47 PM EST 50 mg midazolam (pf) (Versed) (1 mg/mL) multi-dose injection Intravenous, PRN, Starting on 06/16/21 at 1326, Until 06/16/21 at 1406, Anesthesia Intra-op, Routine Given 06/16/2021 1:26 PM EST 2 mg ondansetron (pf) (Zofran) (2 mg/mL) injection Intravenous, PRN, Starting on 06/16/21 at 1350, Until 06/16/21 at 1406, Anesthesia Intra-op, Routine Given 06/16/2021 1:50 PM EST 8 mg propofoL (Diprivan) 10 mg/mL bolus injection (Anesthesia) Intravenous, PRN, Starting on 06/16/21 at 1348, Until e 06/16/21 at 1406, Anesthesia Intra-op Given 06/16/2021 1:48 PM EST 50 mg documented in this encounter Care Teams Power Brake Operator Relationship Specialty Start Date End Date Mitchell Yap MD [address] [place] [address] PCP - General 05/19/10 07/17/23 documented as of this encounter
--- OUTSIDE RECORDS SUMMARY | 2024-04-18 13:14 | XMS_ITS | Encounter Summary ---
[place] [address] Care Team Providers Care Guide Travel Name Role Phone Mitchell Yap MD Primary Care Provider [phone] Reason for Visit * Reason Onset Date Comments Pump/sensor 09/29/2020 Encounter Details Date Type Department Care Team (Late st Contact Info) Description 09/29/2020 Telephone [place] [phone] Namita Cordero Pump/sensor Social History Tobacco Use [...] * Telephone Encounter - Namita Cordero - 09/29/2020 10:07 AM EDT CMN received from [employer]. Filled out. Dr. Vallecillo will sign. Secretaries will fax. * Telephone Encounter - Elena Donohue - 09/29/2020 10:07 AM EDT Faxed [employer] form to [phone] on 09/30/20 documented in this encounter Plan of Treatment Upcoming Encounters Date Type Department Care Team (Late st Contact Info) Description 06/05/2024 10:15 AM EST Office [place] [address] Namita Bansal MD [facility] [place] [address] documented as of this encounter Goals Goal Patient Goal Type Associated Problems Recent Progress Patient-Stated? Author Exercise 3x per week (30 min per time) Exercise No Keila Arango, CHRISTIANO documented as of this encounter Visit Diagnoses Not on filedocumented in this encounter Care Teams Guide Travel Relationship Specialty Start Date End Date Mitchell Yap MD [address] [place] [address] PCP - General 05/19/10 07/17/23 documented as of this encounter
--- OUTSIDE RECORDS SUMMARY | 2024-04-18 13:14 | XMS_ITS | Encounter Summary ---
[place] [address] Care Team Providers Care News Anchor Name Role Phone Mitchell Yap MD Primary Care Provider [phone] Encounter Details Date Type Department Care Team (Late st Contact Info) Description 11/13/2020 Telephone [place] [phone] Sofie Hagan I Social History Tobacco Use Types Packs/Day Years [...] Telephone Encounter - Sofie Richardson I - 11/13/2020 3:48 PM EDT Patient needs to schedule a follow up visit with Dr. Campos for 4 months (on 03/06/2021) for In Person. documented in this encounter Plan of Treatment Upcoming Encounters Date Type Department Care Team (Late st Contact Info) Description 06/05/2024 10:15 AM EST Office Visit [place] [address] Namita Bansal MD [facility] [place] [address] documented as of this encounter Goals Goal Patient Goal Type Associated Problems Recent Progress Patient-Stated? Author Exercise 3x per week (30 min per time) Exercise No Keila Arango, CDE documented as of this encounter Visit Diagnoses Not on filedocumented in this encounter Care Teams News Anchor Relationship Specialty Start Date End Date Mitchell Yap MD [address] [place] [address] PCP - General 05/19/10 07/17/23 documented as of this encounter
--- OUTSIDE RECORDS SUMMARY | 2024-04-18 13:15 | XMS_ITS | Encounter Summary ---
[place] [address] Care Team Providers Care Finisher Machine Name Role Phone Mitchell Yap MD Primary Care Provider [phone] Encounter Details Date Type Department Care Team (Late st Contact Info) Description 11/09/2019 Telephone [place] [phone] Tish Garcia Social History Tobacco Use Types Packs/Day Years [...] encounter Miscellaneous Notes * Telephone Encounter - Tish Garcia - 11/09/2019 3:00 PM EDT SWITCHED APPT TO TELEHEALTH AND ASKED THE PATIENT TO GIVE US A CALL BACK. documented in this encounter Plan of Treatment Upcoming Encounters Date Type Department Care Team (Late st Contact Info) Description 06/05/2024 10:15 AM EST Office [place] [address] Namita Bansal MD [facility] [place] [address] documented as of this encounter Goals Goal Patient Goal Type Associated Problems Recent Progress Patient-Stated? Author Exercise 3x per week (30 min per time) Exercise No Keila Arango, CDE documented as of this encounter Visit Diagnoses Not on filedocumented in this encounter Care Teams Finisher Machine Relationship Specialty Start Date End Date Mitchell Yap MD [address] [place] [address] PCP - General 05/19/10 07/17/23 documented as of this encounter
--- OUTSIDE RECORDS SUMMARY | 2024-04-18 13:15 | XMS_ITS | Encounter Summary ---
Author Organization [facility] [place] [address] Care Team Providers Care Cullet Crusher And Washer Name Role Phone Mitchell Yap MD Primary Care Provider [phone] Reason for Visit * Auth/Cert Specialty Diagnoses / Procedures Referred By Malka vera Referred To Contact Diagnoses RIGHT INDEX left long trigger finger Procedures PRO INCISE FINGER TENDON SHEATH TENDON SHEATH INCISION (TRIGGER FINGER) (WRVU 3.11) Referral ID Status Reason Start Date Expiration Date Visits Re quested Visits Authorized [id number] 1 1 Encounter Details Date Type Department Care Team (Late st Contact Info) Description 09/26/2018 9:15 AM EDT - 09/26/2018 10:15 AM EDT Surgery [place] [address] Jean Diehl MD [facility] DR [place] [address] TENDON SHEATH INCISION (TRIGGER FINGER) (WRVU 3.11) Social History Tobacco Use Types Packs/Day Years Used Date Smoking Tobacco: Former Cigarettes Q uit: 02/16/1979 Smokeless Tobacco: Never Alcohol Use Standard Drinks/Week Comments Not Currently [...] Sign Reading Time Taken Comments Blood Pressure 101/56 09/26/2018 10:15 AM EDT Pulse 90 09/26/2018 10:15 AM EDT Temperature 37.3 ??C (99.1 ??F) 09/26/2018 10:03 AM E DT Respiratory Rate 16 09/26/2018 10:15 AM EDT Oxygen Saturation 98% 09/26/2018 10:15 AM EDT Inhaled Oxygen Concentration - - Weight 59 kg (130 lb) 09/26/2018 8:38 AM EDT Height 149.9 cm (4' 11) 09/26/2018 8:38 AM EDT Body Mass Index 26.26 09/26/2018 8:38 AM EDT documented in this encounter Discharge Instructions * Discharge Instructions* Abby Stephens RN - 09/26/2018 10:13 AM EDT At 9:00 am you received 650 mg of acetaminophen- Your next dose should not be taken before 6 hours have passed. Next dose not before-You should not take more than a total of 3000 mg of acetaminophen in a 24 hour period. You received 15 mg of Ibuprofen/or other nsaid medication at 9:45 am. Your next dose should not be taken before 3:45 pm today. Moderate Sedation You may have received medication [...] 5pm or on a weekend: Call the [facility] bottoming machine operator and ask for the physician operations and maintenance technician covering for your doctor. * Patient Instructions* Dominga Shukla R - 09/26/2018 9:18 AM EDT ORTHOPAEDIC DISCHARGE INSTRUCTIONS Orthopaedic Surgery Discharge Instructions Surgery: Trigger Finger Release Diet: You may eat a regular diet as tolerated. Driving: No, not until you are cleared to do so by your Orthopedic clinic. Ideally you should not drive while you are on narcotic pain meds as these can affect judgement and reaction time. Call your Surgeon with any questions. Medications: Your pain should be controlled with extra strength tylenol. We have provided a small script for pain medication that you may take if needed. We suggest only using it tonight and tomorrow night and using the tylenol during the day. This pain medication can cause constipation so increase your intake of fluids and fiber while you are on them. You can also take an [id number] stool softener, colace or senna, to facilitate a bowel movement. Wound: Keep operative hand clean and dry, do not submerge in water until follow- up. You may remove the dressing in 48 hours and then apply a bandaid until follow-up. Do not use ice on the operative hand Activity: Light activity only in the operative hand. Be careful on stairs, as you may be unsteady on your feet. You should also keep the hand elevated after surgery. This will help to decrease swelling and improve comfort. Ice may be applied but make sure it is double- bagged as to not get the incision or dressings wet. Call your doctor (#[phone]) if: You have a fever > 101.5 or experience chills Increased discharge from the incision Any redness or swelling around the incision Increased pain or change in the pain that is not controlled by your pain medications WHERE TO CALL WITH QUESTIONS [facility] Ask for the resident operations and maintenance technician for your provider [facility] (7:00am - 5:00pm) Future Appointments Date Time Provider Department Center 10/20/2018 11:00 AM Montana Lopez PA [facility] 10/31/2018 10:30 AM LAB, THREE L Lab 3L [facility] 10/31/2018 10:30 AM DIABETES, SUPPORT [facility] 10/31/2018 11:30 AM Lin Rojas MD [facility] documented in this encounter Medications at Time of Discharge Medication Sig Dispensed Refills Start Date End Date Diabetic Supplies, Miscellan. [facility] CMN form faxed to [employer] 100 each 12 02/24/2017 Diabetic Supplies, Miscellan. [facility] PWO faxed to [facility] 100 each 12 01/17/2017 ADVAIR DISKUS 100-50 mcg/dose Disk with Device Inhale 1 puff into the lungs daily. 11/23/2016 Diabetic Supplies, Miscellan. [facility] Form faxed to [facility] for insulin pump supplies 1 each 3 01/05/2016 multivitamin with minerals (THERA-M) 9-0.4 mg Tablet Take 1 tablet by mouth daily. lisinopril (PRINIVIL;ZESTRIL) 20 mg Tablet Take 1 tablet by mouth daily. 30 tablet 09/25/2014 traMADol (ULTRAM) 50 mg Tablet Take 1 tablet by mouth every 6 hours as needed. 5 tablet 10/10/2018 10/31/2018 traMADol (ULTRAM) 50 mg Tablet Take 1 tablet by mouth every 6 hours as needed. 5 tablet 09/26/2018 10/10/2018 alendronate (FOSAMAX) 70 mg Tablet Take 70 mg by mouth every 7 days. 05/19/2018 11/03/2020 insulin lispro (HUMALOG) Solution Inject 40-50 Units subcutaneously continuous. Via [facility] 523 50 mL 3 01/30/2018 04/03/2019 blood sugar diagnostic strips (ONETOUCH ULTRA TEST) Strip Use as instructed to check blood sugar 8 times daily ( Hypoglycemia unawareness) 800 each 3 01/30/2018 03/05/2019 calcium-vitamin D3 (CALCIUM 600 + D,3,) 600 mg(1,500mg) -400 unit Tablet Take 1 tablet by mouth 2 times daily. 11/03/2020 documented as of this encounter Progress Notes * Brenda Leyva - 09/26/2018 10:34 AM EDT Discharge instructions and medications reviewed with patient and her - he was given the prescription. All questions answered and written copy sent home with patient. documented in this encounter H&P Notes * Jean Diehl MD - 09/26/2018 9:23 AM EDT I interviewed and examined Ebonie Sol. There have been no apparent interval changes in her health status since the most recent history and physical was done. JEAN DIEHL MD Source Note - Jean Diehl MD - 09/26/2018 7:30 AM EDT Patient Name: Ebonie Sol Patient Age: 63 y.o. Birthdate: 1955 Admit date: (Not on file) Attending Physician: Jean Diehl MD Please see H&P note for visit documentation. * Jean Diehl MD - 09/26/2018 7:30 AM EDT Patient Name: Ebonie Sol Patient Age: 63 y.o. Birthdate: 1955 Admit date: (Not on file) Attending Physician: Jean Diehl MD Please see H&P note for visit documentation. documented in this encounter Miscellaneous Notes * Op Note - Jean Diehl MD - 09/26/2018 9:40 AM EDT [facility] Operative Note Patient Name: Ebonie Sol : [id number] MR#: [id number] Case Date: 09/26/2018 Surgeon: Surgeon(s) and Role: * Jean Diehl MD - Primary * Dominga Shukla MD - Resident Preoperative diagnosis: Left long trigger finger Postoperative diagnosis: Left long trigger finger Procedure Performed: A1 jeannette release left long finger. Anesthesia: Local with sedation. Operative Indication: The patient is a 63 y.o.-year-old Female with triggering and locking at the A1 jeannette level of Her left long finger. It has been refractory to conservative treatment. She was brought to the operating room for A1 jeannette release. Summary of Procedure: The patient's left upper extremity was prepped with a Hibiclens scrub and a ChloraPrep. her arm was draped in a sterile fashion. A preoperative timeout was performed as per [facility] Then 1 mL of 2% lidocaine with epinephrine buffered with sodium bicarbonate was injected s ubcutaneously over the A1 jeannette level of the left long finger. The patient's left arm was exsanguinated with an Esmarch bandage and a brachial tourniquet was inflated to 250mm Hg. An incision was made through an existing crease overlying the A1 jeannette of her left long finger. Subcutaneous spreading was performed in the palmar midline over the flexor sheath at the A1 jeannette level. Great care was taken throughout this procedure to avoid injury to the digital neurovascular bundles. The A1 jeannette was exposed. It was sharply transected over its entire course under direct visionwith tenotomy scissors. The FDP and FDS tendons were brought into the incision site. Synovium was debrided from the flexor tendons. The site was now copiously irrigated. The patient was asked to moveher left long finger and she could do so freely without triggering or locking. The incision site was copiously irrigated. The skin was closed with 4-0 nylon suture. A sterile soft dressing was applied. The tourniquet was released with a total tourniquet time of 8 minutes. All digits rapidly became pink and warm with brisk capillary refill. She was transferred to the recovery room in stable condition. Estimated blood loss was minimal. IV replacement was 500 mL of crystalloid. She tolerated the procedure well without apparent complications. Attestation: Case Date: 09/26/2018 I was present and I participated during the entire procedure. JEAN DIEHL MD 09/26/2018 * Brief Op Note - Jean Diehl MD - 09/26/2018 9:39 AM EDT Brief Operative Note Patient Name: Ebonie Sol : [id number] MR#: [id number] Case Date: 09/26/2018 Surgeon: Surgeon(s) and Role: * Jean Diehl MD - Primary * Dominga Shukla MD - Resident Preoperative diagnosis: Left long trigger finger Postoperative diagnosis: Left long trigger finger Procedure(s) (LRB): TENDON SHEATH INCISION (TRIGGER FINGER) (WRVU 3.11) (Left) Anesthesia: MAC Complications: None Intake: 500 cc crystalloid Output: Estimated Blood Loss:None Drains: None Specimens removed during surgery: None Disposition: aroused from sedation, and taken to the recovery room in a stable condition Condition: doing well without problems Attestation: Case Date: 09/26/2018 I was present and I participated during the entire procedure. (Please see the Surgical Encounter Summary for any Implant and Specimen details pertinent to this patient.) documented in this encounter Plan of Treatment Upcoming Encounters Date Type Department Care Team (Late st Contact Info) Description 06/05/2024 10:15 AM EST Office [place] [address] Namita Bansal MD [facility] DR [place] [address] documented as of this encounter Goals Goal Patient Goal Type Associated Problems Recent Progress Patient-Stated? Author Exercise 3x per week (30 min per time) Exercise No Keila Arango CDE documented as of this encounter Procedures Procedure Name Priority Date/Time Associated Diagnosis Comments TENDON SHEATH INCISION (TRIGGER FINGER) (WRVU 3.11) 09/26/2018 9:34 AM EDT Trigger finger, left middle finger Trigger finger, right index finger POCT GLUCOSE Routine 09/26/2018 8:45 AM EDT POCT FINGERSTICK GLUCOSE Routine 09/26/2018 documented in this encounter Results * POCT Glucose (09/26/2018 8:45 AM EDT) Glucose, POC 76 65 - 199 mg/dL [facility] Comment: Supplemental ranges: <140 mg/dL before meals <180 mg/dL all other times of the day Blood specimen (specimen) 09/26/2018 8:45 AM EDT 09/26/2018 8:45 AM EDT Jean Diehl MD POINT OF CARE TEST O RDERABLES [facility] [place] [address] * POCT Fingerstick Glucose (09/26/2018) Glucose, POC 76 60 - 199 mg/dl Blood specimen (specimen) 09/26/2018 Jean Diehl MD POINT OF CARE TEST O RDERABLES documented in this encounter Visit Diagnoses Diagnosis Trigger thumb of left hand Trigger finger (acquired) Trigger finger, left middle finger Trigger finger, right index finger documented in this encounter Administered Medications Inactive Administered Medications - up to 3 most recent administrations Medication Order MAR Action Action Date Dose Rate Site acetaminophen (TYLENOL) tablet 650 mg 650 mg, Oral, ONCE, 1 dose, On Tue09/26/18 at 0800, Maximum dose of acetaminophen is 4000 mg from all sources in 24 hours., Routine Given 09/26/2018 9:05 AM EDT 650 mg lidocaine-EPINEPHrine 2 %-1:200,000 injection ONCE PRN, Starting on Tue09/26/18 at 0948, Until Tue09/26/18 at 1251, Intra-Operative (Intra-Procedure), Routine Given 09/26/2018 9:48 AM EDT 1 mL sodium bicarbonate 8.4 % (1 meq/ml) IV solution ONCE PRN, Starting on Tue09/26/18 at 0949, Until Tue09/26/18 at 1251, Intra-Operative (Intra-Procedure), Routine Given 09/26/2018 9:49 AM EDT 59 mEq 19- Surgical Site documented in this encounter Active and Recently Administered Medications Times are shown in EDT. Scheduled Medication Order 09/24/2018 09/25/2018 09/26/2018 acetaminophen (TYLENOL) tablet 650 mg (COMPLETED) 650 mg, Oral, ONCE, 1 dose, On Tue09/26/18 at 0800, Maximum dose of acetaminophen is 4000 mg from all sources in 24 hours., Routine 904 (Given - Provid er: Belinda Duran RN) acetaminophen (TYLENOL) tablet 975 mg 975 mg, Oral, EVERY 8 HOURS SCHEDULED, First dose on Tue09/26/18 at 1400, Until Discontinued, Maximum total acetaminophen dose 4 grams per 24 hours., Recovery (Recovery-Hospital Unit), Routine Continuous Medication Order 09/24/2018 09/25/2018 09/26/2018 lactated ringers infusion (CANCELED) 1,000 mL, at 100 mL/hr, Intravenous, CONTINUOUS, Starting on Tue09/26/18 at 0845, Until Tue09/26/18 at 1027, Day of Surgery (Day of Procedure) 0923 (New Bag - Prov ider: Teresa Lino CRNA)0956 (Anesthesia Volume Adjustment - Provider: Teresa Lino CRNA) PRN Medication Order 09/24/2018 09/25/2018 09/26/2018 lidocaine-EPINEPHrine 2 %-1:200,000 injection (CANCELED) ONCE PRN, Starting on Tue09/26/18 at 0948, Until Tue09/26/18 at 1251, Intra-Operative (Intra-Procedure), Routine 947 (Given - Provid er: Jean Diehl MD - Comment: Lidocaine 2% mixed with 2 cc 8.4 % sodium bicarb 1 cc total) sodium bicarbonate 8.4 % (1 meq/ml) IV solution (CANCELED) ONCE PRN, Starting on Tue09/26/18 at 0949, Until Tue09/26/18 at 1251, Intra-Operative (Intra-Procedure), Routine 09 (Given - Provid er: Jean Diehl MD - Comment: Lidocaine 2% mixed with 2 cc 8.4 % sodium bicarb 1 cc total) traMADol (ULTRAM) tablet 50-100 mg 50-100 mg, Oral, EVERY 6 HOURS PRN, Starting on Tue09/26/18 at 0920, Until Tue09/26/18 at 1251, Pain, Give 50 mg for mild to moderate pain (1-6). Give 100 mg for severe pain (7-10) If pain not relived after 60 minutes by a dose of 50 mg then may repeat 50 mg ONCE. Maximum of 400 mg/day., Routine documented in this encounter Care Teams Cullet Crusher And Washer Relationship Specialty Start Date End Date Mitchell Yap MD [address] [place] [address] PCP - General 05/19/10 07/17/23 documented as of this encounter
--- OUTSIDE RECORDS SUMMARY | 2024-04-18 13:15 | XMS_ITS | Encounter Summary ---
[place] [address] Care Team Providers Care Windows Server Specialist Name Role Phone Mitchell Yap MD Primary Care Provider [phone] Reason for Visit * Reason Onset Date Comments Pump/sensor 05/26/2020 Encounter Details Date Type Department Care Team (Late st Contact Info) Description 05/26/2020 Tele[place] [address] Namita Cordero Pump/sensor Social History Tobacco Use [...] * Telephone Encounter - Namita Cordero - 05/29/2020 11:32 AM EST Confirmed 05/29 * Telephone Encounter - Namita Cordero - 05/26/2020 10:02 AM EST Prescription for pump and diabetic supplies received from [employer]. Filled out. Dr. Vallecillo will sign. I will fax. documented in this encounter Plan of Treatment Upcoming Encounters Date Type Department Care Team (Late st Contact Info) Description 06/05/2024 10:15 AM EST Office [place] [address] Namita Bansal MD [facility] [place] [address] documented as of this encounter Goals Goal Patient Goal Type Associated Problems Recent Progress Patient-Stated? Author Exercise 3x per week (30 min per time) Exercise No Keila Arango, CHRISTIANO documented as of this encounter Visit Diagnoses Not on filedocumented in this encounter Care Teams Windows Server Specialist Relationship Specialty Start Date End Date Mitchell Yap MD [address] [place] [address] PCP - General 05/19/10 07/17/23 documented as of this encounter
--- OUTSIDE RECORDS SUMMARY | 2024-04-18 13:15 | XMS_ITS | Encounter Summary ---
Author Organization [facility] [place] [place] [address] Care Team Providers Care Condenser Tester Name Role Phone Mitchell Yap MD Primary Care Provider [phone] Encounter Details Date Type Department Care Team (Late st Contact Info) Description 06/25/2019 Orders [place] [phone] Michelle Woodard MD [facility] [place] [address] Social History Tobacco Use Types Packs/Day Years [...] 10:15 AM EST Office [place] [phone] Namita Bansal MD [facility] [place] [address] documented as of this encounter Goals Goal Patient Goal Type Associated Problems Recent Progress Patient-Stated? Author Exercise 3x per week (30 min per time) Exercise No Keila Arango, CDE documented as of this encounter Visit Diagnoses Not on filedocumented in this encounter Care Teams Condenser Tester Relationship Specialty Start Date End Date Mitchell Yap MD [address] [place] [address] PCP - General 05/19/10 07/17/23 documented as of this encounter
--- OUTSIDE RECORDS SUMMARY | 2024-04-18 13:15 | XMS_ITS | Encounter Summary ---
[place] [address] Care Team Providers Care Clinical Associate Name Role Phone Mitchell Yap MD Primary Care Provider [phone] Reason for Visit * Reason Onset Date Comments Pump/sensor 06/04/2019 Encounter Details Date Type Department Care Team (Late st Contact Info) Description 06/04/2019 Telephone [place] [address] Namita Cordero Pump/sensor Social History Tobacco Use [...] * Telephone Encounter - Namita Cordero - 06/14/2019 3:06 PM EST Confirmed 06/07 * Telephone Encounter - Namita Cordero - 06/04/2019 7:47 AM EST CGM referral with physician's order received from [facility]. Filled out. Abby Campbell will sign. I will fax. documented in this encounter Plan of Treatment Upcoming Encounters Date Type Department Care Team (Late st Contact Info) Description 06/05/2024 10:15 AM EST Office Visit [place] [address] Namita Bansal MD [facility] [place] [address] documented as of this encounter Goals Goal Patient Goal Type Associated Problems Recent Progress Patient-Stated? Author Exercise 3x per week (30 min per time) Exercise No Keila Arango CDE documented as of this encounter Visit Diagnoses Not on filedocumented in this encounter Care Teams Clinical Associate Relationship Specialty Start Date End Date Mitchell Yap MD [address] [place] [address] PCP - General 05/19/10 07/17/23 documented as of this encounter
--- OUTSIDE RECORDS SUMMARY | 2024-04-18 13:15 | XMS_ITS | Encounter Summary ---
[place] [address] Care Team Providers Care Pharmacy Technician Inpatient Name Role Phone Mitchell Yap MD Primary Care Provider [phone] Reason for Visit * Reason Onset Date Comments Other 09/11/2019 [facility]work [facility] [place] [facility] Encounter Details Date Type Department Care Team (Late st Contact Info) Description 09/11/2019 Telephone [place] [phone] Valeria Aldridge ([place]work [facility] [place] [facility]) Social History Tobacco Use Types Packs/Day Years [...] encounter Miscellaneous Notes * Telephone Encounter - Valeria Aldridge - 09/11/2019 2:45 PM EDT Caller and relationship to patient (if other than patient): self Best time to reach caller: Osiel Message or Reason for Call: Patient very anxious, her own words. She wants to make certain the paperwork needed for [place] medicaid exception was received and that she can get her supplies for her pump and CGM supplies Appt Needed and Reason: No Call Back Provider: Crystal documented in this encounter Plan of Treatment Upcoming Encounters Date Type Department Care Team (Late st Contact Info) Description 06/05/2024 10:15 AM EST Office [place] [address] Namita Bansal MD [facility] [place] [address] documented as of this encounter Goals Goal Patient Goal Type Associated Problems Recent Progress Patient-Stated? Author Exercise 3x per week (30 min per time) Exercise No Keila Arango CDE documented as of this encounter Visit Diagnoses Not on filedocumented in this encounter Care Teams Pharmacy Technician Inpatient Relationship Specialty Start Date End Date Mitchell Yap MD [address] [place] [address] PCP - General 05/19/10 07/17/23 documented as of this encounter
--- OUTSIDE RECORDS SUMMARY | 2024-04-18 13:15 | XMS_ITS | Encounter Summary ---
[place] [address] Care Team Providers Care Electrification Adviser Name Role Phone Mitchell Yap MD Primary Care Provider [phone] Reason for Visit * Reason Onset Date Comments Pump/sensor 11/05/2019 Encounter Details Date Type Department Care Team (Late st Contact Info) Description 11/05/2019 Telephone [place] [phone] Namita Cordero Pump/sensor Social History Tobacco Use [...] * Telephone Encounter - Namita Cordero - 11/05/2019 9:47 AM EDT Documentation request received from [employer] 2 office notes routed Confirmed 11/04 documented in this encounter Plan of Treatment Upcoming Encounters Date Type Department Care Team (Late st Contact Info) Description 06/05/2024 10:15 AM EST Office [place] [address] Namita Bansal MD [facility] [place] [address] documented as of this encounter Goals Goal Patient Goal Type Associated Problems Recent Progress Patient-Stated? Author Exercise 3x per week (30 min per time) Exercise No Keila Arango, CDE documented as of this encounter Visit Diagnoses Not on filedocumented in this encounter Care Teams Electrification Adviser Relationship Specialty Start Date End Date Mitchell Yap MD [address] [place] [address] PCP - General 05/19/10 07/17/23 documented as of this encounter
--- OUTSIDE RECORDS SUMMARY | 2024-04-18 13:15 | XMS_ITS | Encounter Summary ---
[place] [address] Care Team Providers Care Scrap Picker Name Role Phone Mitchell Yap MD Primary Care Provider [phone] Encounter Details Date Type Department Care Team (Late st Contact Info) Description 11/13/2019 Tele[place] [phone] Moriah Ward, [facility] Social History Tobacco Use Types Packs/Day Years [...] encounter Miscellaneous Notes * Telephone Encounter - Moriah Ward, [facility] - 11/13/2019 9:33 AM EDT GAP Joy Operator Pre-Telemedicine Phone Note [x] Patient not reached [] Patient reached and the following information was reviewed/obtained per protocol: [] Confirmed patient name and date of [] Confirmed telemedicine elyse (Vidyo and Virtual Visit) is downloaded and functioning [] Confirmed location of patient - TeleVisit is taking place in [] [place] [] [place] [] If not on myDH, working on signing up for myDH [] Confirmed has completed any pre-visit questionnaires [] If has not received required pre-visit questionnaires, send via myD [] Reviewed patient medications [] Documented self-reported vitals: [] Weight: [] Height [] pulse recorded: [x] Other information or concerns LM asking pt to call me back documented in this encounter Plan of Treatment Upcoming Encounters Date Type Department Care Team (Late st Contact Info) Description 06/05/2024 10:15 AM EST Office [place] [address] Namita Bansal MD [facility] [place] [address] documented as of this encounter Goals Goal Patient Goal Type Associated Problems Recent Progress Patient-Stated? Author Exercise 3x per week (30 min per time) Exercise No Keila Arango CDE documented as of this encounter Visit Diagnoses Not on filedocumented in this encounter Care Teams Scrap Picker Relationship Specialty Start Date End Date Mitchell Yap MD [address] [place] [address] PCP - General 05/19/10 07/17/23 documented as of this encounter
--- OUTSIDE RECORDS SUMMARY | 2024-04-18 13:15 | XMS_ITS | Encounter Summary ---
Author Organization [facility] [place] [address] Care Team Providers Care Machine Tester Name Role Phone Mitchell Yap MD Primary Care Provider [phone] Encounter Details Date Type Department Care Team (Latest Contact Info) Description 11/14/2019 11:00 AM EDT TH Visit (TeleHealth) [place] [address] Lin Rojas MD [facility] [place] [address] Diabetes mellitus type 1, uncomplicated; Insulin pump in place Social History Tobacco Use Types Packs/Day Years [...] as of this encounter Progress Notes * Lin Rojas MD - 11/14/2019 11:00 AM EDT Endocrinology Clinic Follow-up Visit Reason for Visit: Follow-up of Diabetes Mellitus Type 1 The patient consented to today's visit being conducted by telephone due to the Covid-19 pandemic and made aware that insurance will be billed for today's encounter. HISTORY OF PRESENT ILLNESS: Ms. Ebonie Sol is a 64 y.o. year old lady with history significant for DM type 1 with hypoglycemia unawareness, on a medtronic insulin pump and Enlite CGM, whom I last saw in October 2018 and last visit in our clinic was with my colleague Abby Campbell APRN, about 6 months ago (Apr 2019). At thattime, she was given information on the Medtronic 670g system for her to think about. She reports today that she just started using the medtronic 670g about 6 days ago, and has a training session with medtronic this afternoon. CGM portion is not yet hooked up. avg bg 124 Tests 8.1x day Having many lows, which she sees when she checks her FSBG (she has unawareness). 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 11/14/2019 Time Glucose Bolus Notes 1008 81 mg/dL 757 157 522 321 Last night had triscuit + cheese at bedtime 11/13/2019 2200 270mg/dL 1.4 units 2100 214 0.1 units 2041 211 1.2 units 1921 47 5954 369 0742 42 Was working - took a peppermint and ate something 715 [address] to work 520 91 0.6 units for breakfast Just woke up 11/12/20192020 199 0.3 units 1728 174 3.2 units 6752 256 8762 111 0.7 units 726 131 612 74 525 54 Date of Diagnosis: 1958 ?? Last HgbA1c: 7.0% (Apr 2019), 6.7% (10/31/18), 7.0% (07/08/17), 6.9% (October 2016), 7.0% (October 2015) ?? Current Diabetes Medication regimen: Insulin pump medtronic 670g - just started using it 6 days ago Basal rates: MN 0.475 3a 0.475 10a 0.500 5p 0.575 6p 0.500 9p 0.450 CR MN 14 12:30p 13 6:30p 14 CF 55 Target 110 - 140 FSBG regimen: 6-10x/day ?? Hypoglycemia: lowest 50s, fasting. ?? Diet: ?? Physical Activity: ?? Smoking: ?? History of complications 1) Nephropathy - Um:cr , sCr GFR 94 (Apr 2019) 2) Neuropathy - no n/t, except when her BG is up she has a weird sensation in her feet, dissipates when BG normalizes, no wounds or sores. 3) Retinopathy - Last ophtho evaluation - seeing on 08/18/17, no DR to date. 4) CV disease - LDL 107 (October 2016), 111 (Apr 2019). HDL 69 (Apr 2019). PAST MEDICAL HISTORY: Patient Active Problem List Diagnosis Date Noted ??? Trigger thumb of left hand 05/28/2016 ??? Hypoglycemia unawareness in type 1 diabetes mellitus 11/05/2015 ??? Carpal tunnel syndrome on left 04/02/2015 ??? Hypertension 02/16/2011 ??? CIS - Entered not Verified 08/28/2010 ??? CIS - type 1 DM MEDICATIONS: Medications 05/15/19 1018 Medication Sig Taking? Contour Next Test Strips Strip Use 1 strip at each glucose test 8 times daily. ICD 10 Code: E10.9 insulin needles, disposable, (BD ULTRA-FINE SHORT PEN NEEDLE) 31 gauge x 5/16 Needle 1 Box by [facility].(Non-Drug; Combo Route) route 4 times daily. Box of 100 insulin glargine (LANTUS SOLOSTAR U-100 INSULIN) 100 unit/mL (3 mL) pen Inject 10 Units subcutaneously daily. insulin lispro (HUMALOG) Insulin Pen Inject 0-10 Units subcutaneously 3 times daily (before meals).Based on carb count and insulin sliding scale MAGNESIUM ORAL Take by mouth daily. HUMALOG Solution INJECT 40-50 UNITS SUBCUTANEOUSLY CONTINUOUS VIA PUMP ONETOUCH ULTRA BLUE TEST STRIP Strip Use 1 strip at each glucose test 8 times daily. ICD 10 Code: E10.9 acetaminophen (TYLENOL) 500 mg Tablet Take 1,000 mg by mouth every 6 hours as needed for Pain. ibuprofen (ADVIL;MOTRIN) 200 mg Tablet Take 600 mg by mouth daily as needed for Pain. alendronate (FOSAMAX) 70 mg Tablet Take 70 mg by mouth every 7 days. calcium-vitamin D3 (CALCIUM 600 + D,3,) 600 mg(1,500mg) -400 unit Tablet Take 1 tablet by mouth 2 times daily. Diabetic Supplies, Miscellan. [facility] CMN form faxed to [employer] Diabetic Supplies, Miscellan. [facility] PWO faxed to [facility] Medical ADVAIR DISKUS 100-50 mcg/dose Disk with Device Inhale 1 puff into the lungs daily. Diabetic Supplies, Miscellan. [facility] Form faxed to [facility] diabetes for insulin pump supplies multivitamin with minerals (THERA-M) 9-0.4 mg Tablet Take 1 tablet by mouth daily. lisinopril (PRINIVIL;ZESTRIL) 20 mg Tablet Take 1 tablet by mouth daily. ALLERGIES: Allergies Allergen Reactions ??? Penicillins Anaphylaxis ??? Codeine Nausea And Vomiting ??? Prochlorperazine SOCIAL HISTORY: Social History Tobacco Use Smoking Status Former Smoker ??? Types: Cigarettes Smokeless Tobacco Never Used Tobacco Comment quit 1978 FAMILY HISTORY: Family History Relation Problem Age of Onset ??? Sister Cancer REVIEW OF SYSTEMS: All 12 systems reviewed and negative except as noted per HPI. PHYSICAL EXAM: Gen: NAD, AAOx3, speaking full sentences, calm very pleasant demeanor Eyes: EOMI, anicteric sclerae ENT: no hoarseness Neck: no visible thyromegaly Pulm: good air movement, easy respirations MSK: 5/5 strength in upper and lower extremities Neuro: normal gait, no tremor, no focal findings ASSESSMENT: 64 yo F with DM type 1 c/b hypoglycemia unawareness, having frequent low blood glucose levels lately. These seem to occur overnight and during the day, particularly when she is having strenuous exertion, so I think she needs to lower her basal rates. I will lower them incrementally, today I lowered all of them by an increment of 0.025 units/hr. PLAN: Lower all basal rates by an increment of 0.025 units/hr MN 0.475 --> 0.45 3a 0.475 --> 0.45 10a 0.500 --> 0.475 5p 0.575 --> 0.55 6p 0.500 --> 0.475 9p 0.450 --> 0.425 --f/u in 5 weeks with JIMY Pearson MD Panel Instrument Repairerpowder operator Section of Endocrinology [facility] documented in this encounter Plan of Treatment Upcoming Encounters Date Type Department Care Team (Late st Contact Info) Description 06/05/2024 10:15 AM EST Office Visit [place] [address] Namita Bansal MD [facility] [place] [address] documented as of this encounter Goals Goal Patient Goal Type Associated Problems Recent Progress Patient-Stated? Author Exercise 3x per week (30 min per time) Exercise No Keila Arango, CHRISTIANO documented as of this encounter Visit Diagnoses Diagnosis Diabetes mellitus type 1, uncomplicated Type I (juvenile type) diabetes mellitus without mention of complication, not stated as uncontrolled Insulin pump in place Insulin pump status documented in this encounter Care Teams Machine Tester Relationship Specialty Start Date End Date Mitchell Yap MD [address] [place] [address] PCP - General 05/19/10 07/17/23 documented as of this encounter
--- OUTSIDE RECORDS SUMMARY | 2024-04-18 13:15 | XMS_ITS | Encounter Summary ---
[place] [address] Care Team Providers Care Electrical Service Technician Name Role Phone Mitchell Yap MD Primary Care Provider [phone] Encounter Details Date Type Department Care Team (Late st Contact Info) Description 11/13/2019 [place] [phone] Balbina Guan CMA Social History Tobacco Use [...] Notes * Telephone Encounter - Balbina Guan - 11/13/2019 11:58 AM EDT GAP Box Spinner Pre-Telemedicine Phone Note [] Patient not reached [x] Patient reached and the following information was reviewed/obtained per protocol: [x] Confirmed patient name and date of [] Confirmed telemedicine elyse (Vidyo and Virtual Visit) is downloaded and functioning [x] Confirmed location of patient - TeleVisit is taking place in [x] [place] [] [place] [x] If not on myDH, working on signing up for myD [] Confirmed has completed any pre-visit questionnaires [] If has not received required pre-visit questionnaires, send via myD [] Reviewed patient medications [x] Documented self-reported vitals: [x] Weight 115 lbs [x] Height 4 ft 11 in [] pulse recorded: [] Other information or concerns documented in this encounter Plan of Treatment Upcoming Encounters Date Type Department Care Team (Late st Contact Info) Description 06/05/2024 10:15 AM EST Office [place] [address] Namita Bansal MD [facility] [place] [address] documented as of this encounter Goals Goal Patient Goal Type Associated Problems Recent Progress Patient-Stated? Author Exercise 3x per week (30 min per time) Exercise No Keila Arango, CHRISTIANO documented as of this encounter Visit Diagnoses Not on filedocumented in this encounter Care Teams Electrical Service Technician Relationship Specialty Start Date End Date Mitchell Yap MD [address] [place] [address] PCP - General 05/19/10 07/17/23 documented as of this encounter
--- OUTSIDE RECORDS SUMMARY | 2024-04-18 13:15 | XMS_ITS | Encounter Summary ---
Author Organization [facility] [place] [address] Care Team Providers Care National Insurance Officer Name Role Phone Mitchell Yap MD Primary Care Provider [phone] Reason for Visit * Auth/Cert Specialty Diagnoses / Procedures Referred By Malka vera Referred To Contact Diagnoses trigger finger, left middle finger Procedures PRO INCISE FINGER TENDON SHEATH TENDON SHEATH INCISION (TRIGGER FINGER) (WRVU 3.11) Referral ID Status Reason Start Date Expiration Date Visits Re quested Visits Authorized [id number] 1 1 Encounter Details Date Type Department Care Team (Late st Contact Info) Description 10/10/2018 9:45 AM EDT - 10/10/2018 10:45 AM EDT Surgery [facility] [place] [address] Jean Diehl MD [facility] [place] [address] TENDON SHEATH INCISION (TRIGGER FINGER) (WRVU 3.11) [...] Sign Reading Time Taken Comments Blood Pressure 132/61 10/10/2018 9:48 AM EDT Pulse 70 10/10/2018 9:48 AM EDT Temperature 36.7 ??C (98.1 ??F) 10/10/2018 9:48 AM ED T Respiratory Rate 16 10/10/2018 9:48 AM EDT Oxygen Saturation 99% 10/10/2018 9:53 AM EDT Inhaled Oxygen Concentration - - Weight 59 kg (130 lb) 10/10/2018 8:25 AM EDT Height 149.9 cm (4' 11) 10/10/2018 8:25 AM EDT Body Mass Index 26.26 10/10/2018 8:25 AM EDT documented in this encounter Discharge Instructions * Discharge Instructions* Alexa Aguillon RN - 10/10/2018 9:59 AM EDT At 0900 am/ you received 650 mg of acetaminophen- Your next dose should not be taken before 6 hourshave passed. Next dose not before- 300 pm You should not take more than a total of 3000 mg of acetaminophen in a 24 hour period. You received Toradol (Ibuprofen/nsaid medication) at 0915 am. Your next Dose of Ibuprofen should not be taken before 3:15 pm today. General Anesthesia Discharge Instructions Go home and rest. You may be sleepy for several hours. Take it easy as sudden position changes may cause nausea and/or dizziness. Use caution on stairs. Do not smoke if you are alone. Follow a light to regular diet as [...] closest emergency room or call the hospital cell operator at [phone] and ask for physician reading interventionist covering for your physician. Questions or problems after 5pm or on a weekend: Call the [facility] cell operator at and ask for the physician reading interventionist covering for your doctor. * Patient Instructions* Marino Osorio MD - 10/10/2018 6:37 AM EDT Orthopaedic Surgery Discharge Instructions Surgery: Trigger Finger Release Diet: You may eat a regular diet as tolerated. Driving: No, not until you are cleared to do so by your Orthopedic clinic. You should not drive if you are on narcotic pain meds as these can affect judgement and reaction time. Call your Surgeon with any questions. Medications: 1. Narcotic pain medication can cause constipation so increase your intake of fluids and fiber if you are on them. You can also take an [id number] stool softener, colace or senna, to facilitatea bowel movement. 2. If you need a renewal on a narcotic pain medication, you need to give the Orthopedic clinic enough time to process your request. This can take up to three days, so plan accordingly. Wound: Keep operative hand clean and dry, do not submerge in water until follow- up. You may remove the dressing in 48 hours and then apply a bandaid until follow-up. Stitches will be removed at follow-up. Activity: Light activity only in the operative hand. Be careful on stairs, as you may be unsteady on your feet. You should also keep the hand elevated after surgery. This will help to decrease swelling and improve comfort. You should not apply ice to the hand. It is very important to move the operative finger(s) to keep the tendons gliding. Call your doctor (#[phone]) if: ?? You have a fever > 101.5 or experience chills Increased discharge from the incision Any redness or swelling around the incision Increased pain or change in the pain that is not controlled by your pain medications WHERE TO CALL WITH QUESTIONS [facility] Ask for the resident reading interventionist for your provider [facility] (7:00am - 5:00pm) Future Appointments Date Time Provider Department Center 10/20/2018 11:00 AM Montana Lopez PA [facility] 3A [facility] 10/31/2018 10:30 AM LAB, THREE L Lab 3L [facility] 10/31/2018 10:30 AM DIABETES, SUPPORT [facility] 10/31/2018 11:30 AM Lin Rojas MD [facility] documented in this encounter Medications at Time of Discharge Medication Sig Dispensed Refills Start Date End Date Diabetic Supplies, Miscellan. [facility] CM[place] faxed to [employer] 100 each 12 02/24/2017 Diabetic Supplies, Miscellan. [facility] PWO faxed to [facility] Medical 100 each 12 01/17/2017 ADVAIR DISKUS 100-50 mcg/dose Disk with Device Inhale 1 puff into the lungs daily. 11/23/2016 Diabetic Supplies, Miscellan. [facility] Form faxed to [facility] for insulin pump supplies 1 each 3 01/05/2016 multivitamin with minerals (THERA-M) 9-0.4 mg Tablet Take 1 tablet by mouth daily. lisinopril (PRINIVIL;ZESTRIL) 20 mg Tablet Take 1 tablet by mouth daily. 30 tablet 09/25/2014 traMADol (ULTRAM) 50 mg Tablet Take 1 tablet by mouth every 6 hours as needed. 5 tablet 10/10/2018 10/31/2018 alendronate (FOSAMAX) 70 mg Tablet Take 70 mg by mouth every 7 days. 05/19/2018 11/03/2020 insulin lispro (HUMALOG) Solution Inject 40-50 Units subcutaneously continuous. Via [employer] 523 50 mL 3 01/30/2018 04/03/2019 blood sugar diagnostic strips (ONETOUCH ULTRA TEST) Strip Use as instructed to check blood sugar 8 times daily ( Hypoglycemia unawareness) 800 each 3 01/30/2018 03/05/2019 calcium-vitamin D3 (CALCIUM 600 + D,3,) 600 mg(1,500mg) -400 unit Tablet Take 1 tablet by mouth 2 times daily. 11/03/2020 documented as of this encounter Progress Notes * Alexa Aguillon RN - 10/10/2018 10:13 AM EDT Discharge instructions and medications reviewed with patient and , Issa. They verbalized understanding. All questions answered and written copy sent home with patient. Prescription given to patient. Patient/escort encouraged to call with questions or concerns. documented in this encounter H&P Notes * Marino Osorio MD - 10/10/2018 8:58 AM EDT The patient's history and physical exam have been reviewed and completed. There has been no interval change from that of the pre-operative history and physical exam done within the last 30 days. CV: RRR, no m/r/g PULM: CTAB in the anterior and posterior lung guillermo bilaterally * Jean Diehl MD - 10/09/2018 5:08 PM EDT Patient Name: Ebonie Sol Patient Age: 63 y.o. Birthdate: 1955 Admit date: (Not on file) Attending Physician: Jean Diehl MD Please see H&P note for visit documentation. documented in this encounter Miscellaneous Notes * Op Note - Jean Diehl MD - 10/10/2018 9:12 AM EDT [facility] Operative Note Patient Name: Ebonie Sol : [id number] MR#: [id number] Case Date: 10/10/2018 Surgeon: Surgeon(s) and Role: * Jean Diehl MD - Primary * Marino Osorio MD - Resident Preoperative diagnosis: Right index trigger finger Postoperative diagnosis: Right index trigger finger Procedure Performed: A1 jeannette release right index finger. Anesthesia: Local with sedation. Operative Indication: The patient is a 63 y.o.-year-old Female with triggering and locking at the A1 jeannette level of her right index finger. She responded well to her recent left long finger A1 jeannette release. She was brought to the operating room today for A1 jeannette release of her right index finger. Summary of Procedure: The patient's right upper extremity was prepped with a Hibiclens scrub and a ChloraPrep. her right arm was draped in a sterile fashion. A preoperative timeout was performed as per [facility] protocol. Then 2 mL of 2% lidocaine with epinephrine buffered with sodium bicarbonate was injected subcutaneously over the A1 jeannette level of her right index finger. Her right arm was exsanguinated with an Esmarch bandage and a brachial tourniquet was inflated to 250mm Hg. An incision was made through an existing crease overlying the A1 jeannette of her right index finger. Subcutaneous spreading was performed in [...] were brought into the incision site. Synovium wasdebrided from the flexor tendons. The site was now copiously irrigated. The patient was asked to move her fingers and she could do so freely without triggering or locking. The incision site was copiously irrigated. The skin was closed with 4-0 nylon suture. A sterile soft dressing was applied. The tourniquet was released with a total tourniquet time of 13 minutes. All digits rapidly became pink and warm with brisk capillary refill. She was transferred to the recoveryroom in stable condition. Estimated blood loss was minimal. IV replacement was 600 mL of crystalloid. She tolerated the procedure well without apparent complications. Attestation: Case Date: 10/10/2018 I was present and I participated during the entire procedure. JEAN DIEHL MD 10/10/2018 * Brief Op Note - Jean Diehl MD - 10/10/2018 9:09 AM EDT Brief Operative Note Patient Name: Ebonie Sol : [id number] MR#: [id number] Case Date: 10/10/2018 Surgeon: Surgeon(s) and Role: * Jean Diehl MD - Primary * Marino Osorio MD - Resident Preoperative diagnosis: Right index trigger finger Postoperative diagnosis: Right index trigger finger Procedure(s) (LRB): TENDON SHEATH INCISION (TRIGGER FINGER) (WRVU 3.11) (Right) Anesthesia: MAC Complications: None Intake: 600cc crystalloid Output: Estimated Blood Loss: None Drains: None Specimens removed during surgery: None Disposition: aroused from sedation, and taken to the recovery room in a stable condition Condition: doing well without problems Attestation: Case Date: 10/10/2018 I was present and I participated during the entire procedure. (Please see the Surgical Encounter Summary for any Implant and Specimen details pertinent to this patient.) documented in this encounter Plan of Treatment Upcoming Encounters Date Type Department Care Team (Late st Contact Info) Description 06/05/2024 10:15 AM EST Office [place] [address] Namita Bansal MD [facility] [place] [address] documented as of this encounter Goals Goal Patient Goal Type Associated Problems Recent Progress Patient-Stated? Author Exercise 3x per week (30 min per time) Exercise Keila Espinoza CDE documented as of this encounter Procedures Procedure Name Priority Date/Time Associated Diagnosis Comments TENDON SHEATH INCISION (TRIGGER FINGER) (WRVU 3.11) 10/10/2018 9:12 AM EDT Trigger finger, right index finger Trigger finger, left middle finger documented in this encounter Visit Diagnoses Diagnosis Trigger finger, right index finger Trigger finger, left middle finger documented in this encounter Administered Medications Inactive Administered Medications - up to 3 most recent administrations Medication Order MAR Action Action Date Dose Rate Site acetaminophen (TYLENOL) tablet 650 mg 650 mg, Oral, ONCE, 1 dose, On Tue10/10/18 at 0745, Maximum dose of acetaminophen is 4000 mg from all sources in 24 hours., Routine Given 10/10/2018 8:29 AM EDT 650 mg lactated ringers infusion 1,000 mL, at 100 mL/hr, Intravenous, CONTINUOUS, Starting on Tue10/10/18 at 0845, Until Tue10/10/18 at 1226, Day of Surgery (Day of Procedure) New Bag 10/10/2018 8:47 AM EDT 1,000 mLs 100 mL/hr lidocaine (XYLOCAINE) 10 mg/mL (1 %) injection 3 mg 3 mg (0.3 mL), Subcutaneous, ONCE PRN, 1 dose, Starting on Tue10/10/18 at 0819, Until Tue10/10/18 at 1226, for discomfort with PIV insertion, Day of Surgery (Day of Procedure), Routine lidocaine-EPINEPHrine 2 %-1:200,000 injection ONCE PRN, Starting on Tue10/10/18 at 0924, Until Tue10/10/18 at 1226, Intra-Operative (Intra-Procedure), Routine Given 10/10/2018 9:24 AM EDT 2 mLs sodium bicarbonate 8.4 % (1 meq/ml) IV solution ONCE PRN, Starting on Tue10/10/18 at 0924, Until Tue10/10/18 at 1226, Intra-Operative (Intra-Procedure), Routine Given 10/10/2018 9:24 AM EDT 2 mEq sodium chloride 0.9 % flush 5-20 mL 5-20 mL, Intravenous, EVERY 1 MIN PRN, Starting on Tue10/10/18 at 0819, Until Tue10/10/18 at 1226, flush, Flush pertains to all indwelling lines. Flush per protocol found in the job aid using the link provided on this medication record., Day of Surgery (Day of Procedure), Routine documented in this encounter Active and Recently Administered Medications Times are shown in EDT. Scheduled Medication Order 10/08/2018 10/09/2018 10/10/2018 acetaminophen (TYLENOL) tablet 650 mg (COMPLETED) 650 mg, Oral, ONCE, 1 dose, On Tue10/10/18 at 0745, Maximum dose of acetaminophen is 4000 mg from all sources in 24 hours., Routine 08 (Given - Provid er: Marino Freedman RN) Continuous Medication Order 10/08/2018 10/09/2018 10/10/2018 lactated ringers infusion 1,000 mL, at 100 mL/hr, Intravenous, CONTINUOUS, Starting on Tue10/10/18 at 0845, Until Tue10/10/18 at 1226, Day of Surgery (Day of Procedure) 0847 (New Bag - Prov ider: Marino Freedman RN)0935 (Anesthesia Volume Adjustment - Provider: Teresa Lino CRNA) PRN Medication Order 10/08/2018 10/09/2018 10/10/2018 lidocaine (XYLOCAINE) 10 mg/mL (1 %) injection 3 mg 3 mg (0.3 mL), Subcutaneous, ONCE PRN, 1 dose, Starting on Tue10/10/18 at 0819, Until Tue10/10/18 at 1226, for discomfort with PIV insertion, Day of Surgery (Day of Procedure), Routine lidocaine-EPINEPHrine 2 %-1:200,000 injection (CANCELED) ONCE PRN, Starting on Tue10/10/18 at 0924, Until Tue10/10/18 at 1226, Intra-Operative (Intra-Procedure), Routine 923 (Given - Provid er: Jean Diehl MD - Comment: Mixed w/ 2mL of Sodium bicarb.) sodium bicarbonate 8.4 % (1 meq/ml) IV solution (CANCELED) ONCE PRN, Starting on Tue10/10/18 at 0924, Until Tue10/10/18 at 1226, Intra-Operative (Intra-Procedure), Routine 923 (Given - Provid er: Jean Diehl MD - Comment: Mixed w/ 30mL of 2% Lidocaine w. epi.) sodium chloride 0.9 % flush 5-20 mL 5-20 mL, Intravenous, EVERY 1 MIN PRN, Starting on Tue10/10/18 at 0819, Until Tue10/10/18 at 1226, flush, Flush pertains to all indwelling lines. Flush per protocol found in the job aid using the link provided on this medication record., Day of Surgery (Day of Procedure), Routine documented in this encounter Care Teams National Insurance Officer Relationship Specialty Start Date End Date Mitchell Yap MD [address] [place] [id number] PCP - General 05/19/10 07/17/23 documented as of this encounter
--- OUTSIDE RECORDS SUMMARY | 2024-04-18 13:15 | XMS_ITS | Encounter Summary ---
[place] [address] Care Team Providers Care Costume Cutter Name Role Phone Mitchell Yap MD Primary Care Provider [phone] Reason for Visit * Reason Onset Date Comments Pump/sensor 10/22/2019 Encounter Details Date Type Department Care Team (Late st Contact Info) Description 10/22/2019 Telephone [place] [phone] [facility] [place] [address] Pump/sensor Social History Tobacco Use Types Packs/Day [...] encounter Miscellaneous Notes * Telephone Encounter - Yamilet Markham RD - 10/22/2019 4:46 PM EDT Calling Ebonie again to help her get training for her pump scheduled. Did successfully make contact with her this time. Provided contact information for Sabrinasusan Zepeda at [facility]. Ebonie will need to call Sabrina to get he training scheduled. Reassured her it can go in a stepwise process because of the nature of manual mode on that pump and then Automode feature, which is the hybrid closed loop aspect. It sounds like she got the pump in July, and then had some challenges maybe with insurance andgetting supplies. She stated her infusion sets and reservoirs will be here in 3 business days. Discussed though I can't do the initial training with her, that after she does the initial training withSabrina, she should schedule an appointment with me by calling the Adult Endocrinology office, and I can help her from there with the pump, and making sure she's comfortable with everything. I can't adjust settings without MD orders, but if there is something that I think needs adjusting I can run itby a provider. SANTOSH Quiñones * Telephone Encounter - Yamilet Markham RD - 10/22/2019 4:46 PM EDT ----- Message from Tish Garcia sent at 10/22/2019 4:14 PM EDT ----- This pt needs help with getting her pump set up. I [facility] to [facility] her [facility] but she's retired. Would you be able to help this lady and if not is there another person I can refer her too? documented in this encounter Plan of Treatment Upcoming Encounters Date Type Department Care Team (Late st Contact Info) Description 06/05/2024 10:15 AM EST Office [place] [address] Namita Bansal MD [facility] [place] [address] documented as of this encounter Goals Goal Patient Goal Type Associated Problems Recent Progress Patient-Stated? Author Exercise 3x per week (30 min per time) Exercise No Keila Arango, CDE documented as of this encounter Visit Diagnoses Not on filedocumented in this encounter Care Teams Costume Cutter Relationship Specialty Start Date End Date Mitchell Yap MD [address] [place] [address] PCP - General 05/19/10 07/17/23 documented as of this encounter
--- OUTSIDE RECORDS SUMMARY | 2024-04-18 13:15 | XMS_ITS | Encounter Summary ---
[place] [address] Care Team Providers Care Switchboard Wirer Name Role Phone Mitchell Yap MD Primary Care Provider [phone] Reason for Visit * Reason Onset Date Comments Pump/sensor 12/06/2018 Encounter Details Date Type Department Care Team (Late st Contact Info) Description 12/06/2018 Telephone [place] [phone] Namita Cordero Pump/sensor Social History Tobacco Use [...] * Telephone Encounter - Namita Cordero - 01/10/2019 10:42 AM EDT Confirmed 12/12 * Telephone Encounter - Namita Cordero - 12/06/2018 4:23 PM EDT CGM referral with physician's order received from [facility] Medical. Filled out. Dr. Rojas will sign. I will fax. documented in this encounter Plan of Treatment Upcoming Encounters Date Type Department Care Team (Late st Contact Info) Description 06/05/2024 10:15 AM EST Office [place] [address] [facility] [place] [address] documented as of this encounter Goals Goal Patient Goal Type Associated Problems Recent Progress Patient-Stated? Author Exercise 3x per week (30 min per time) Exercise No Keila Arango, CHRISTIANO documented as of this encounter Visit Diagnoses Not on filedocumented in this encounter Care Teams Switchboard Wirer Relationship Specialty Start Date End Date Mitchell Yap MD [address] [place] [address] PCP - General 05/19/10 07/17/23 documented as of this encounter
--- OUTSIDE RECORDS SUMMARY | 2024-04-18 13:15 | XMS_ITS | Encounter Summary ---
[place] [address] Care Team Providers Care Human Machine Interface Engineer Name Role Phone Mitchell Yap MD Primary Care Provider [phone] Reason for Visit * Reason Onset Date Comments Pump/sensor 10/15/2019 Encounter Details Date Type Department Care Team (Late st Contact Info) Description 10/15/2019 Telephone [place] [phone] Namita Cordero Pump/sensor Social History Tobacco Use [...] * Telephone Encounter - Namita Cordero - 10/26/2019 11:17 AM EDT Confirmed 10/16 * Telephone Encounter - Namita Cordero - 10/15/2019 2:51 PM EDT Prescription for pump and diabetic supplies received from [employer]. Filled out. Provider will sign. I will fax. documented in this encounter Plan of Treatment Upcoming Encounters Date Type Department Care Team (Late st Contact Info) Description 06/05/2024 10:15 AM EST Office Visit [place] [address] [facility] DR [place] [address] documented as of this encounter Goals Goal Patient Goal Type Associated Problems Recent Progress Patient-Stated? Author Exercise 3x per week (30 min per time) Exercise No Keila Arango CDE documented as of this encounter Visit Diagnoses Not on filedocumented in this encounter Care Teams Human Machine Interface Engineer Relationship Specialty Start Date End Date Mitchell Yap MD [address] [place] [address] PCP - General 05/19/10 07/17/23 documented as of this encounter
--- OUTSIDE RECORDS SUMMARY | 2024-04-18 13:15 | XMS_ITS | Encounter Summary ---
Author Organization [facility] [place] [address] Care Team Providers Care Seat Cover Maker Name Role Phone Mitchell Yap MD Primary Care Provider [phone] Encounter Details Date Type Department Care Team (Late st Contact Info) Description 06/25/2019 Telephone [place] [phone] Michelle Woodard MD [facility] [place] [address] Social History Tobacco Use Types Packs/Day Years [...] encounter Miscellaneous Notes * Telephone Encounter - Michelle Woodard MD - 06/25/2019 5:37 PM EST Received message from JAYDEN Thakur that patient looking for information on how much insulin to take. Contacted Ebonie who informed me that she is out of pump supplies with her final reservoir today, andis unsure when she will get her next set of pump supplies. She is concerned as she has always use apump. Reviewed that she will need to switch to basal bolus by insulin pen, and discussed that she should take the Lantus 10 units daily, starting 2 hours prior to insulin pump removal to allow time for onset of action. Once her pump is removed she should use her Humalog pen for correction based on a meal associated insulin of 1:15 I:C, and sensitivity factor of 55 . Explained that I would send prescription to [facility] in [place], and send my message with specific recommendations written down In Review of Abby Campbell's note 05/15/20 Basal rates: 12 AM 0.45, 3 AM 0.425, 10 AM 0.5, 17:00=.575, 18:00=.5, 21:00=.45 total basal 11.25 ?? Bolus doses: Insulin to carb at midnight 14 at 12:30=13, at 18:30=14 sensitivity factor 55 target glucose 110-140 Michelle Woodard PGY 5 Endocrinology, Metabolism & Diabetes Fellow Pager [phone] documented in this encounter Plan of Treatment Upcoming Encounters Date Type Department Care Team (Late st Contact Info) Description 06/05/2024 10:15 AM EST Office [place] [address] Namita Bansal MD [facility] [place] [address] documented as of this encounter Goals Goal Patient Goal Type Associated Problems Recent Progress Patient-Stated? Author Exercise 3x per week (30 min per time) Exercise No Keila Arango CDE documented as of this encounter Visit Diagnoses Not on filedocumented in this encounter Care Teams Seat Cover Maker Relationship Specialty Start Date End Date Mitchell Yap MD [address] [place] [address] PCP - General 05/19/10 07/17/23 documented as of this encounter
--- OUTSIDE RECORDS SUMMARY | 2024-04-18 13:15 | XMS_ITS | Encounter Summary ---
Author [place] [address] Care Team Providers Care Screen Examiner Name Role Phone Mitchell Yap MD Primary Care Provider [phone] Reason for Visit * Reason Onset Date Comments Pump/sensor 05/19/2020 Encounter Details Date Type Department Care Team (Late st Contact Info) Description 05/19/2020 [place]phone [place] [phone] Namita Cordero Pump/sensor Social History Tobacco Use [...] * Telephone Encounter - Namita Cordero - 05/19/2020 8:39 AM EST Documentation request received from [employer]. Office note routed Confirmed 05/19 documented in this encounter Plan of Treatment Upcoming Encounters Date Type Department Care Team (Late st Contact Info) Description 06/05/2024 10:15 AM EST Office [place] [address] Namita Bansal MD [facility] [place] [address] documented as of this encounter Goals Goal Patient Goal Type Associated Problems Recent Progress Patient-Stated? Author Exercise 3x per week (30 min per time) Exercise No Keila Arango, CHRISTIANO documented as of this encounter Visit Diagnoses Not on filedocumented in this encounter Care Teams Screen Examiner Relationship Specialty Start Date End Date Mitchell Yap MD [address] [place] [address] PCP - General 05/19/10 07/17/23 documented as of this encounter
--- OUTSIDE RECORDS SUMMARY | 2024-04-18 13:15 | XMS_ITS | Encounter Summary ---
Author Organization [facility] [place] [address] Care Team Providers Care Traffic Lieutenant Name Role Phone iMtchell Yap MD Primary Care Provider [phone] Reason for Visit * Reason Comments Follow Up Surgery trig rel DOS 10/10/18 Encounter Details Date Type Department Care Team (Late st Contact Info) Description 10/20/2018 11:00 AM EDT Office Visit [place] [address] Montana Lopez PA [address] [place] [address] Trigger finger, right index finger; Trigger finger, left middle finger Social History Tobacco Use Types Packs/Day [...] - Inhaled Oxygen Concentration - - Weight 59 kg (130 lb) 10/20/2018 11:[address] aed Height 149.9 cm (4' 11) 10/20/2018 11:17 AM EDT staed Body Mass Index 26.26 10/20/2018 11:17 AM EDT documented in this encounter Progress Notes * Montana Lopez PA - 10/20/2018 11:00 AM EDT PATIENT NAME: Ebonie Sol AGE: 63 y.o. MR#: [id number] DATE OF VISIT: 10/20/2018 DATE OF SURGERY: 09/26/18, 10/10/18 SURGERY DESCRIPTION: A1 jeannette release of the left long finger, A1 jeannette release of the right index finger SURGEON: Dr. Diehl CHIEF COMPLAINT: 3 weeks and 10 days S/P above procedure HISTORY OF PRESENT ILLNESS: Ms. Sol is a 63 y.o. female who presents 3 weeks and 10 days s/p the above procedures for office follow up. The patient states that she took the tramadol prescribed atnight for the first week following each procedure. For her left long finger she did experience somesensitivity over the incision and stiffness with flexion. This has since resolved over the past coup le of weeks and she has not had any recurrent triggering. In regards to her right index finger she is about 10 days out from the surgery and noticed a little bit of subcutaneous tissue coming out of the incision site. She was visiting her daughter in [place] who is a nurse and covered it up with a butterfly bandage. She has not had any drainage, increased swelling or erythema around the incision site. She also denies any fevers or chills. Also in the right index finger she has not had any recurrent triggering and took the tramadol for about 1 week. She has not needed any medication for either hand over the past week. The patient is concerned for some discoloration along her right index long and ring fingers and is unsure when this began. She does have a history of type 1 diabetes thatis well controlled with her last A1c being 6.5. She is most concerned about developing ulcers and peripheral vascular disease. The patient is scheduled to follow-up with endocrinology next week. PHYSICAL EXAM: Ms. Sol is a 63 y.o. female who is alert, appears stated age and cooperative. Inspection: Incision over the left long finger A1 jeannette is well-healed without any evidence of infection. It does appear the right index finger did have some tissue stemming from the incision site, but this has since scarred over. There is evidence of granulation tissue and there is no drainage, swelling or erythema present. ROM/Strength: Patient is able to actively flex and extend both her left long finger and right indexfinger without recurrent triggering. Neurovascular: Sensation and motor function are intact along the median, radial and ulnar nerve roots bilaterally. Her hands are well-perfused, distal radial pulse 2+. DIAGNOSTIC STUDIES: no new studies ASSESSMENT: Ms. Sol presents for follow-up 3 weeks status post A1 jeannette release of the left long finger and 10 days status post A1 jeannette release of the right index finger. Her left long finger is doing well overall without any recurrent triggering and the incision is well-healed without signsof infection. It does appear on examination that she had some subcutaneous tissue popped through the incision site but it does not appear to be infected without any drainage and granulation tissue has formed. Patient also denies any fevers chills or other signs of infection. It was advised that shecontinue to monitor this for any new onset of swelling or erythema or drainage. It appears that it i s well-healed at this point and sutures were removed and sterile bandages were applied. In regards to the discoloration of her right index, long and ring fingers I do feel as though this is most likely Raynaud's disease. I did advise that she follow-up with either her primary care provider or cracking machine operator in regards to this issue and that it can be managed medically as well as with lifestyle intervention to improve blood flow. At this time I feel like she has done well with the procedures and does not need any further follow-up unless new or worsening symptoms occur. PLAN: The patient understands to contact us if she has any other questions or concerns. The patientwill follow up on an as needed basis. The above documentation was completed using [employer] voice recognition software. documented in this encounter Plan of Treatment Upcoming Encounters Date Type Department Care Team (Late st Contact Info) Description 06/05/2024 10:15 AM EST Office Visit [place] [address] Namita Bansal MD [facility] [place] [address] documented as of this encounter Goals Goal Patient Goal Type Associated Problems Recent Progress Patient-Stated? Author Exercise 3x per week (30 min per time) Exercise No Keila Arango, CHRISTIANO documented as of this encounter Visit Diagnoses Diagnosis Trigger finger, right index finger Trigger finger, left middle finger documented in this encounter Care Teams Traffic Lieutenant Relationship Specialty Start Date End Date Mitchell Yap MD [address] [place] [address] PCP - General 05/19/10 07/17/23 documented as of this encounter
--- OUTSIDE RECORDS SUMMARY | 2024-04-18 13:15 | XMS_ITS | Encounter Summary ---
[place] [address] Care Team Providers Care Assembler Show Motor Name Role Phone Mitchell Yap MD Primary Care Provider [phone] Encounter Details Date Type Department Care Team (Latest Contact Info) Description 05/15/2019 9:30 AM EST Laboratory Appointment Lab [address] [place] [address] Diabetes mellitus type 1, uncomplicated; Insulin pump [...] 10:15 AM EST Office [place] [address] Namita Bansal MD [facility] [place] [address] documented as of this encounter Goals Goal Patient Goal Type Associated Problems Recent Progress Patient-Stated? Author Exercise 3x per week (30 min per time) Exercise No Keila Arango, CDE documented as of this encounter Procedures Procedure Name Priority Date/Time Associated Diagnosis Comments HC VENIPUNCTURE STAT 05/15/2019 9:29 AM EST Diabetes mellitus type 1, uncomplicated HC LDL CHOLESTEROL, DIRECT STAT 05/15/2019 9:29 AM EST Diabetes mellitus type 1, uncomplicated Insulin pump in place HC CHOLESTEROL STAT 05/15/2019 9:29 AM EST Diabetes mellitus type 1, uncomplicated Insulin pump in place HC HEMOGLOBIN A1C STAT 05/15/2019 9:2 9 AM EST Diabetes mellitus type 1, uncomplicated Insulin pump in place documented in this encounter Results * (ABNORMAL) Hemoglobin A1c (05/15/2019 9:29 AM EST) [facility] Hemoglobin A1c 7.0(H) 4.3 - 5.6 % [facility] Comment: Reference Range: 4.3 - 5.6% [...] Mellitus, Diabetes Care 2013; 36: Suppl. 1, R47-11 Estimated Average Glucose 153 mg/dL [facility] Comment: eAG equivalents for HbA1c percentages: [...] into estimated average glucose values. ??Diabetes Care 2008:31(8):4567-2619. Blood specimen (specimen) 05/15/2019 9:29 AM EST 05/15/2019 9:43 AM EST Narrative Resulting Agency Comment Spec In Lab Lin Rojas MD CHEMISTRY ORDERABLES Performing Organization Address [facility] de Phone Number [facility] [place] [address] * LDL Cholesterol, Direct (05/15/2019 9:29 AM EST) LDL Cholesterol, Direct 111 mg/dL [facility] Comment: Lowest Risk: <100 mg/dL Lower Risk: 100-129 mg/dL Borderline High Risk: 130-159 mg/dL High Risk: 160-189 mg/dL Very High Risk: >em=228 mg/dL Blood specimen (specimen) 05/15/2019 9:29 AM EST 05/15/2019 9:43 AM EST Narrative Resulting Agency Comment Spec In Lab Lin Rojas MD CHEMISTRY ORDERABLES Performing Organization Address [facility] Co de Phone Number [facility] [place] [address] * HDL/Cholesterol Profile (05/15/2019 9:29 AM EST) Cholesterol, Total 177 mg/dL [facility] Comment: Lower Risk: <200 mg/dL Average Risk: 200-239 mg/dL Higher Risk: >az=948 mg/dL HDL Cholesterol 69 mg/dL [facility] Comment: Males: ?? Higher Risk: <40 mg/dL Females: ?? HIgher Risk: <50 mg/dL Cholesterol/HDL Ratio 2.6 ratio [facility] Chol/HDL Interpretation See Note [facility] Comment: Lipid management should be guided by a patient? s ASCVD risk, goals and preferences. ACC/AHA Guidelines recommend high intensity statin if clinical ASCVD or LDL greater than or equal to 190 mg/dL. http://Catapo[employer].com/IBE-IXX-Ihluzetan Measure LDL if Total Cholesterol minus HDL Cholesterol is greater than 220 mg/dL. Adults aged 40-75 with LDL 70-189 mg/dL should have their 10 year ASCVD risk estimated with the ACC/AHA ASCVD risk estimator binding http://tools.acc.org/KTOZF-Srcr-Rbqqmjphl/ Statin should be discussed if risk greater than or equal to 7.5% in non-diabetics. With diabetes, moderate intensity statin is recommended if risk less than 7.5%, high intensity if risk greater than or equal to 7.5%. Annual lipid monitoring on statins is not necessary. Lifestyle modification is a critical component of ASCVD risk reduction. Blood specimen (specimen) 05/15/2019 9:29 AM EST 05/15/2019 9:43 AM EST Narrative Resulting Agency Comment Spec In Lab Lin Rojas MD CHEMISTRY ORDERABLES [facility] [place] [address] * (ABNORMAL) Creatinine (05/15/2019 9:29 AM EST) Creatinine 0.67(L) 0.70 - 1.20 mg/dL [facility] Est Glomerular Filtration Rate 94 >=60 mL/min/1.7 3 m?? [facility] Comment: The eGFR was calculated using the CKD-EPI equation. As with all creatinine based estimates of kidney function, eGFR values calculated with the CKD-EPI equation are not accurate in patients with acute kidney failure, extremes of body mass or the acutely ill. http://[employer]/DHMCnkf eGFR 109 >=60 mL/min/1.7 3 m?? [facility] Comment: The eGFR was calculated using the CKD-EPI equation. As with all creatinine based estimates of kidney function, eGFR values calculated with the CKD-EPI equation are not accurate in patients with acute kidney failure, extremes of body mass or the acutely ill. http://[employer]/DHMCnkf Blood specimen (specimen) 05/15/2019 9:29 AM EST 05/15/2019 9:43 AM EST Narrative Resulting Agency Comment Spec In Lab Lin Rojas MD CHEMISTRY ORDERABLES [facility] [address] documented in this encounter Visit Diagnoses Diagnosis Diabetes mellitus type 1, uncomplicated Type I (juvenile type) diabetes mellitus without mention of complication, not stated as uncontrolled Insulin pump in place Insulin pump status documented in this encounter Care Teams Assembler Show Motor Relationship Specialty Start Date End Date Mitchell Yap MD [address] [place] [address] PCP - General 05/19/10 07/17/23 documented as of this encounter
--- OUTSIDE RECORDS SUMMARY | 2024-04-18 13:15 | XMS_ITS | Encounter Summary ---
Author Organization [facility] [place] [address] Care Team Providers Care Bull Bucker Name Role Phone Mitchell Yap MD Primary Care Provider [phone] Encounter Details Date Type Department Care Team (Latest Contact Info) Description 07/15/2020 Transcribe [place] [phone] Mitchell Yap MD [address] [place] [id number] Raynaud's phenomenon (secondary); Pharyngeal dysphagia; Vascular disorder [...] EST Office [place] [address] Namita Bansal MD [facility] [place] [address] documented as of this encounter Goals Goal Patient Goal Type Associated Problems Recent Progress Patient-Stated? Author Exercise 3x per week (30 min per time) Exercise No Keila Arango CDE documented as of this encounter Results * RNA Polymerase III Ab,IgG (03/25/2021 8:56 AM EDT) [facility] RNA Polymerase III Ab, IgG (MAY) <[address] <[address] [facility] Comment: Test performed by [employer] ?[id number], ?[place] [address] ? Collaborative Physician: Carmel Gupta MD,PHD,UZMA Test Reported by [facility], [facility], [address] [place] [address] Bandar Borja M.D., Ph.D., Director of Laboratories , [facility] [id number] Blood 03/25/2021 8:56 AM EDT 03/25/2021 11:04 AM EDT Narrative Resulting Agency Comment Spec In Lab Mitchell Yap MD LAB SEND OUT ORDERAB LES [facility] [place] [address] * Centromere Antibody (03/25/2021 8:56 AM EDT) [facility] Centromere Ab <0.2 <1.0 (Negative) U [facility] Comment: Test Performed by: [facility] [address] [place] [address] Enlisted Aircrew/Aerial Observer/Gunner: Alpesh Hughes M.D. Ph.D.; CLIA# [id number] Blood 03/25/2021 8:56 AM EDT 03/25/2021 10:59 AM EDT Narrative Resulting Agency Comment Spec In Lab Mitchell Yap MD LAB SEND OUT ORDERAB LES [facility] [place] [address] * GURJIT (03/25/2021 8:56 AM EDT) [facility] Ab Screen Test ?Result ? Flag ??Unit ??RefValue Antinuclear Ab, HEp-2 ? <1:80 (Negative) ? <1:80 (Negative) ??Substrate, S ? ADDITIONAL INFORMATION --------- ?Method: Immunofluorescence using HEp-2 cellular substrate. ?Test Performed by: ?[facility] [place] [facility] ?[address] [place] [address] ?Enlisted Aircrew/Aerial Observer/Gunner: Alpesh Hughes M.D. Ph.D.; CLIA# [id number] [facility] Blood 03/25/2021 8:56 AM EDT 03/25/2021 10:59 AM EDT Narrative Resulting Agency Comment Spec In Lab Mitchell Yap MD LAB SEND OUT ORDERAB LES Performing Organization Address City/[facility]/ZIP Co de Phone Number [facility] [place] [address] * Scl 70 Antibody (03/25/2021 8:56 AM EDT) Scl-70 Ab <0.2 <1.0 (Negative) [facility] Comment: Test Performed by: [place] [address] Enlisted Aircrew/Aerial Observer/Gunner: Alpesh Hughes M.D. Ph.D.; CLIA# [id number] Blood 03/25/2021 8:56 AM EDT 03/25/2021 10:59 AM EDT Narrative Resulting Agency Comment Spec In Lab Mitchell Yap MD LAB SEND OUT ORDERAB LES Performing Organization Address [facility] Co de Phone Number [facility] [place] [address] * U1RNP Antibody (03/25/2021 8:56 AM EDT) U1RNP Ab <0.2 <1.0 (Negative) [facility] Comment: Test Performed by: [place] [address] Enlisted Aircrew/Aerial Observer/Gunner: Alpesh Hughes M.D. Ph.D.; CLIA# [id number] Blood 03/25/2021 8:56 AM EDT 03/25/2021 10:59 AM EDT Narrative Resulting Agency Comment Spec In Lab Mitchell Yap MD LAB SEND OUT ORDERAB LES Performing Organization Address City/[facility] Co de Phone Number [facility] [place] [address] documented in this encounter Visit Diagnoses Diagnosis Raynaud's phenomenon (secondary) Raynaud's syndrome Pharyngeal dysphagia Dysphagia, pharyngeal phase Vascular disorder of skin documented in this encounter Care Teams Bull Bucker Relationship Specialty Start Date End Date Mitchell aYp MD [address] [place] [address] PCP - General 05/19/10 07/17/23 documented as of this encounter
--- OUTSIDE RECORDS SUMMARY | 2024-04-18 13:15 | XMS_ITS | Encounter Summary ---
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; Insulin pump in place Social History Tobacco [...] Sign Reading Time Taken Comments Blood Pressure 122/64 07/14/2020 11:08 AM EST Pulse 82 07/14/2020 11:08 AM EST Temperature 36.8 ??C (98.2 ??F) 07/14/2020 11:[address] Respiratory Rate - - Oxygen Saturation 98% 07/14/2020 11:08 AM EST Inhaled Oxygen Concentration - - Weight 57.2 kg (126 lb 3.2 oz) 07/14/2020 11:08 AM EST Height 149.9 cm (4' 11) 07/14/2020 11:08 AM EST Body Mass Index 25.49 07/14/2020 11:08 AM EST documented in this encounter Progress Notes * Lin Rojas MD - 07/14/2020 11:00 AM EST Endocrinology Clinic Follow-up Visit Reason for Visit: Follow-up of Diabetes Mellitus Type 1 HISTORY OF PRESENT ILLNESS: Ms. Ebonie Sol is a 65 y.o. year old lady with history significant [...] 670g system for her to think about. At last visit 7 months ago (October 2019) she updated that she had just started using the medtronic 670g about 6 days prior. The CGM portion had not yet been hooked up. 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 Assessment and plan that visit was as follows: ASSESSMENT: 64 yo F with DM type [...] 0.500 --> 0.475 9p 0.450 --> 0.425 She is now using automode past 2 months, which she feels has been working great for her. Hypoglycemia has been not as frequent anymore. Lowest BG since being on automode was 49, few and far between. Highest recently was a 400, before [place]. Thinks maybe she had extended her insulin pump set use to 4 days to preserve her site. She has a nonhealing wound on her L 3rd finger on her DIP joint - skin just split open, hasn't healed. She's found it more difficult to bend her fingers - had been attributing to arthritis. She also has raynaud's. Date of Diagnosis: 1957 ?? Last HgbA1c: 7.0% (Apr 2019), 6.7% (10/31/18), 7.0% (07/08/17), 6.9% (October 2016), 7.0% (October 2015) ?? Current Diabetes Medication regimen: Insulin pump medtronic 670g - just started using it 6 days ago Basal rates: MN 0.45 3a 0.45 10a 0.475 5p 0.55 6p 0.475 9p 0.425 CR MN 14 12:30p 13 6:30p 14 CF 55 Target 110 - 140 FSBG regimen: 6-10x/day ?? Hypoglycemia: lowest 50s, fasting. ?? Diet: ?? Physical Activity: ?? Smoking: ?? History of complications 1) Nephropathy - Um:cr 3 (October 2018) , sCr GFR 94 (Apr 2019) 2) [...] 08/28/2010 ??? CIS - type 1 DM SOCIAL HISTORY: Social History Tobacco Use Smoking Status Former Smoker ??? Types: Cigarettes Smokeless Tobacco Never Used Tobacco Comment quit 1977 FAMILY HISTORY: Family History Relation Problem Age of Onset ??? Sister Cancer REVIEW OF SYSTEMS: All 12 systems reviewed and negative except as noted per HPI. PHYSICAL EXAM: Vitals Office Visit from 07/14/[address] [facility] Weight 57.2 kg (126 lb 3.2 oz) Height 149.9 cm (4' 11) BSA (Calculated - sq m) 1.54 sq meters BMI (Calculated) 25.49 Temp 36.8 ??C (98.2 ??F) Heart Rate 82 BP 122/64 SpO2 98 % Gen: NAD, AAOx3, speaking full sentences, calm very pleasant demeanor Eyes: EOMI, anicteric sclerae ENT: no hoarseness Neck: no visible thyromegaly Pulm: good air movement, easy respirations MSK: 5/5 strength in upper and lower extremities Neuro: normal gait, no tremor, no focal findings Foot exam: normal sensation to monofilament bilaterally. No wounds or sores. No onychomycosis. ASSESSMENT: 65 yo F with DM type 1 c/b hypoglycemia unawareness, currently using the medtronic 670ghybrid closed loop system, which is working very well for her. She has not had nearly as many hypoglycemic events and they are also less severe. She is due for routine diabetes labs so will check them today. She needs to be seen at least every 6 months to get CGM supplies. PLAN: --no changes to current pump settings --follow-up in 4 months, labs 1 hour prior. --labs today. LIN ROJAS MD Farm Operations Technical Directorengine emission technician Section of Endocrinology [facility] documented in this encounter Miscellaneous Notes * Addendum Note - Chanda Carlson - 07/14/2020 11:00 AM ESTAddended by: CHANDA CARLSON on: 07/14/2020 11:57 AM Modules accepted: Orders documented in this encounter Plan of Treatment Upcoming Encounters Date Type Department Care Team (Late st Contact Info) Description 06/05/2024 10:15 AM EST Office [place] [address] Namita Bansal MD [facility] [place] [address] documented as of this encounter Goals Goal Patient Goal Type Associated Problems Recent Progress Patient-Stated? 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 Insulin pump in place HC CHOLESTEROL STAT 07/14/2020 12:18 PM EST Type 1 diabetes mellitus without complication, with fpc current use of insulin pump Insulin pump in place HC HEMOGLOBIN A1C STAT 07/14/2020 12: 18 PM EST Type 1 diabetes mellitus without complication, 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 362 Albumin, Urine 5.7 mg/L [facility] Creatinine, Urine 118 mg/dL [facility] Urine specimen (specimen) 07/14/2020 12:33 PM EST 07/14/2020 12:52 PM EST Narrative Resulting Agency Comment Spec In Lab Lin Rojas MD URINE ORDERABLES [facility] [place] [address] * (ABNORMAL) Basic Metabolic Panel (non-fasting) (07/14/2020 12:18 PM EST) Glucose 116 65 - 199 mg/dL [facility] Comment:Diabetes: >=200 mg/d L plus symptoms Blood Urea Nitrogen 23(H) 8 - 18 mg/dL [facility] Creatinine 0.84 0.70 - 1.20 mg/dL [facility] Sodium 139 135 - 145 mmol/L [facility] Potassium 4.2 3.5 - 5.0 mmol/L [facility] Comment: Please note: ??Patients with WBC >100,000 may have falsely elevated Potassium levels. ??For accurate Potassium quantification in these patients send serum separator tube (gold top) for subsequent determinations. ??Contact the Clinical Chemistry Laboratory if there are any questions. Chloride 106 98 - 107 mmol/L [facility] Carbon Dioxide 27 22 - 31 mmol/L [facility] Anion Gap 6 5 - 15 mmol/L [facility] Calcium 10.6(H) 8.5 - 10.5 mg/dL [facility] Est Glomerular Filtration Rate 74 >=60 mL/min/1. 73 m?? [facility] Comment: This patient? s estimated glomerular filtration rate (eGFR) is between 74 mL/min/1.73 m2 (patients with less muscle mass) and 86 mL/min/1.73 m2 (patients with more muscle mass) as determined by the CKD-EPI equation. Assessment of eGFR is not appropriate when creatinine concentrations are rapidly changing. For clinical decisions where creatinine clearance will affect therapy, a 24-hour urine creatinine clearance may be advised. Assignment of CKD stage 1 ? 5 for patients with an eGFR near the transition point between stages may be based on clinical assessment of muscle mass and symptoms in addition to eGFR. Blood specimen (specimen) 07/14/2020 12:18 PM EST 07/14/2020 12:26 PM EST Narrative Resulting Agency Comment Spec In Lab Lin Rojas MD CHEMISTRY ORDERABLES [facility] [place] [address] * HDL/Cholesterol Profile (07/14/2020 12:18 PM EST) Cholesterol, Total 172 mg/dL [facility] Comment: Lower Risk: <200 mg/dL Average Risk: 200-239 mg/dL Higher Risk: >yg=188 mg/dL HDL Cholesterol 73 mg/dL [facility] Comment: Males: ?? Higher Risk: <40 mg/dL Females: ?? HIgher Risk: <50 mg/dL Cholesterol/HDL Ratio 2.4 ratio [facility] Chol/HDL Interpretation See Note [facility] Comment: Lipid management should be guided by a patient? s ASCVD risk, goals and preferences. ACC/AHA Guidelines recommend high intensity statin if clinical ASCVD or LDL greater than or equal to 190 mg/dL. [email or web address] Measure LDL if Total Cholesterol minus HDL Cholesterol is greater than 220 mg/dL. Adults aged 40-75 with LDL 70-189 mg/dL should have their 10 year ASCVD risk estimated with the ACC/AHA ASCVD risk cable stretcher and tester http://tools.acc.org/QFOBQ-Qatm-Apdaxmydb/ Statin should be discussed if risk greater than or equal to 7.5% in non-diabetics. With diabetes, moderate intensity statin is recommended if risk less than 7.5%, high intensity if risk greater than or equal to 7.5%. Annual lipid monitoring on statins is not necessary. Lifestyle modification is a critical component of ASCVD risk reduction. Blood specimen (specimen) 07/14/2020 12:18 PM EST 07/14/2020 12:26 PM EST Narrative Resulting Agency Comment Spec In Lab Lin Rojas MD CHEMISTRY ORDERABLES Performing Organization Address [facility] Co de Phone Number [facility] [place] [address] * LDL Cholesterol, Direct (07/14/2020 12:18 PM EST) LDL Cholesterol, Direct 97 mg/dL [facility] Comment: Lowest Risk: <100 mg/dL Lower Risk: 100-129 mg/dL Borderline High Risk: 130-159 mg/dL High Risk: 160-189 mg/dL Very High Risk: >an=721 mg/dL Blood specimen (specimen) 07/14/2020 12:18 PM EST 07/14/2020 12:26 PM EST Narrative Resulting Agency Comment Spec In Lab Lin Rojas MD CHEMISTRY ORDERABLES Performing Organization Address [facility] Co de Phone Number [facility] [place] [place] [address] * (ABNORMAL) Hemoglobin A1c (07/14/2020 12:18 PM EST) Hemoglobin A1c 7.7(H) 4.3 - 5.6 % [facility] Comment: Reference Range: 4.3 [...] Mellitus, Diabetes Care 2013; 36: Suppl. 1, S67-65 Estimated Average Glucose 174 mg/dL [facility] Comment: eAG equivalents for [...] into estimated average glucose values. ??Diabetes Care 2008:31(8):3269-9088. 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
--- OUTSIDE RECORDS SUMMARY | 2024-04-18 13:15 | XMS_ITS | Encounter Summary ---
[place] [address] Care Team Providers Care Coater Brake Linings Name Role Phone Mitchell Yap MD Primary Care Provider [phone] Reason for Visit * Reason Onset Date Comments Prior Authorization 10/22/2019 [employer] Encounter Details Date Type Department Care Team (Late st Contact Info) Description 10/22/2019 Telephone [place] [phone] Namita Cordero Prior Authorization ([employer]) Social History Tobacco Use Types Packs/Day Years [...] * Telephone Encounter - Namita Cordero - 10/22/2019 8:11 AM EDT Medication Prior Authorization Kristinaidarumeño Medication name/dose/directions: Guardian [employer] Rationale for request: Type I DM Health plan: [place] Medicaid (Fax) Authorizing technology sales representative name: Nedra Sent to health plan on: 10/22/19 Health plan decision: Approved Quantity approved: 365 Authorization number: [id number] Start date: 10/19/19 End date: 10/21/20 documented in this encounter Plan of Treatment Upcoming Encounters Date Type Department Care Team (Late st Contact Info) Description 06/05/2024 10:15 AM EST Office [place] [address] Namita Bansal MD [facility] [place] [address] documented as of this encounter Goals Goal Patient Goal Type Associated Problems Recent Progress Patient-Stated? Author Exercise 3x per week (30 min per time) Exercise No Keila Arango CDE documented as of this encounter Visit Diagnoses Not on filedocumented in this encounter Care Teams Coater Brake Linings Relationship Specialty Start Date End Date Mitchell Yap MD [address] [place] [address] PCP - General 05/19/10 07/17/23 documented as of this encounter
--- OUTSIDE RECORDS SUMMARY | 2024-04-18 13:15 | XMS_ITS | Encounter Summary ---
Author Organization [facility] [place] [address] Care Team Providers Care Dye Tub Operator Name Role Phone Mitchell Yap MD Primary Care Provider [phone] Reason for Visit * Reason Onset Date Comments Medication Refill 10/29/2019 Encounter Details Date Type Department Care Team (Late st Contact Info) Description 10/29/2019 Refill [place] [id number] Lin Rojas MD [facility] [place] [address] Social History Tobacco Use Types Packs/Day Years [...] 10:15 AM EST Office Visit [place] [address] Namita Bansal MD [facility] [place] [address] documented as of this encounter Goals Goal Patient Goal Type Associated Problems Recent Progress Patient-Stated? Author Exercise 3x per week (30 min per time) Exercise No Keila Arango, VELMAE documented as of this encounter Visit Diagnoses Not on filedocumented in this encounter Care Teams Dye Tub Operator Relationship Specialty Start Date End Date Mitchell Yap MD [address] [place] [address] PCP - General 05/19/10 07/17/23 documented as of this encounter
--- OUTSIDE RECORDS SUMMARY | 2024-04-18 13:15 | XMS_ITS | Encounter Summary ---
Author Organization [facility] [place] [address] Care Team Providers Care Booking Agent Name Role Phone Mitchell Yap MD Primary Care Provider [phone] Encounter Details Date Type Department Care Team (Late st Contact Info) Description 10/31/2018 11:30 AM EDT Office Visit [place] [address] Lin Rojas MD [facility] [place] [address] Diabetes mellitus type 1, uncomplicated; Insulin pump in place; Tingling of both feet Social History Tobacco Use Types Packs/Day Years [...] Sign Reading Time Taken Comments Blood Pressure 127/68 10/31/2018 11:40 AM EDT Pulse 78 10/31/2018 11:40 AM EDT Temperature - - Respiratory Rate - - Oxygen Saturation - - Inhaled Oxygen Concentration - - Weight 59 kg (130 lb) 10/31/2018 11:40 AM EDT Height 149.9 cm (4' 11) 10/31/2018 11:40 AM EDT Body Mass Index 26.26 10/31/2018 11:40 AM EDT documented in this encounter Progress Notes * Lin Rojas MD - 10/31/2018 11:30 AM EDT Images from the original note were not included. Endocrinology Clinic Follow-up Visit Reason for Visit: Follow-up of Diabetes Mellitus Type 1 HISTORY OF PRESENT ILLNESS: Ms. Ebonie Sol is a 63 y.o. year old lady with history significant for DM type 1 on a medtronic insulin pump and Enlite CGM, whom I last saw in Jun 2017 and last visit in our clinic was with my colleague Abby Campbell APRN, about 6 months ago (Apr 2018). She had two hand surgeries and R cataract removed, all done in September. She is having L cataract removed next week. She has needed to take dexamethasone eye drops after her cataract surgery, which she noticed spiking her BG - she has been self-managing with extra 0.5 unit correctional doses. She is coming up on 9 months alcohol free. Date of Diagnosis: 1957 ?? Last HgbA1c: 6.7% (10/31/18), 7.0% (07/08/17), 6.9% (October 2016), 7.0% (October 2015) ?? Current Diabetes Medication regimen: Insulin pump Minimed 523 - humalog CR MN 14 12:30p 13 6:30p 14 CF 55 Target 110 - 140 FSBG regimen: 6-10x/day ?? Hypoglycemia: lowest 50s, fasting. ?? Diet: ?? Physical Activity: ?? Smoking: ?? History of complications 1) Nephropathy - Um:cr , sCr GFR 88 2) Neuropathy - no n/t, except when her BG is up she has a weird sensation in her feet, dissipates when BG normalizes, no wounds or sores. 3) Retinopathy - Last ophtho evaluation - seeing on 08/18/17, no DR to date. 4) CV disease - LDL 107 (October 2016) PAST MEDICAL HISTORY: Patient Active Problem List Diagnosis Date Noted ??? Trigger thumb of left hand 05/28/2016 ??? Hypoglycemia unawareness in type 1 diabetes mellitus 11/05/2015 ??? Carpal tunnel syndrome on left 04/02/2015 ??? Hypertension 02/16/2011 ??? CIS - Entered not Verified 08/28/2010 ??? CIS - type 1 DM MEDICATIONS: Medications 10/31/18 1142 Medication Sig Taking? acetaminophen (TYLENOL) 500 mg Tablet Take 1,000 mg by mouth every 6 hours as needed for Pain. Yes ibuprofen (ADVIL;MOTRIN) 200 mg Tablet Take 600 mg by mouth daily as needed for Pain. Yes alendronate (FOSAMAX) 70 mg Tablet Take 70 mg by mouth every 7 days. Yes insulin lispro (HUMALOG) Solution Inject 40-50 Units subcutaneously continuous. Via [employer] 523 Yes blood sugar diagnostic strips (YagantecUCH ULTRA TEST) Strip Use as instructed to check blood sugar 8 times daily ( Hypoglycemia unawareness) Yes calcium-vitamin D3 (CALCIUM 600 + D,3,) 600 mg(1,500mg) -400 unit Tablet Take 1 tablet by mouth 2 times daily. Yes Diabetic Supplies, Miscellan. [facility] CMN [facility] Yes Diabetic Supplies, Miscellan. [facility] PWO faxed to [facility] Yes ADVAIR DISKUS 100-50 mcg/dose Disk with Device Inhale 1 puff into the lungs daily. Yes Diabetic Supplies, Miscellan. [facility] Form faxed to [facility] diabetes for insulin pump supplies Yes multivitamin with minerals (THERA-M) 9-0.4 mg Tablet Take 1 tablet by mouth daily. Yes lisinopril (PRINIVIL;ZESTRIL) 20 mg Tablet Take 1 tablet by mouth daily. Yes ALLERGIES: Allergies Allergen Reactions ??? Penicillins Anaphylaxis ??? Codeine Nausea And Vomiting ??? Prochlorperazine SOCIAL HISTORY: Social History Tobacco Use Smoking Status Former Smoker ??? Types: Cigarettes ??? Last attempt to quit: 02/16/1979 ??? Years since quittin.7 Smokeless Tobacco Never Used FAMILY HISTORY: Family History Relation Problem Age of Onset ??? Sister Cancer REVIEW OF SYSTEMS: All 12 systems reviewed and negative except as noted per HPI. PHYSICAL EXAM: Vitals Office Visit from 10/31/2018 in Endocrinology at [place] Weight 59 kg (130 lb) Height 149.9 cm (4' 11) BSA (Calculated - sq m) 1.57 sq meters BMI (Calculated) 26.25 Heart Rate 78 BP 127/68 Gen: NAD, AAOx3, speaking full sentences, calm pleasant demeanor, habitus Foot exam: no wounds or sores, dry skin ASSESSMENT: 63 yo F with DM type 1 c/b hypoglycemia unawareness, control has improved with the guidance of the CGM, which she finds very useful. A1c is on the tight side so I had her relax her overnight basal rate slightly. PLAN: --cut back overnight basal rate to 0.45 units/hr. --f/u in 6 months with Abby Campbell APRN, labs 1 hour prior to appt. 25 min of this 40 min face to face visit was spent in counseling the patient on DM mgmt. LIN ROJAS MD Stock Handlerpodiatrist Section of Endocrinology [facility] documented in this encounter Plan of Treatment Upcoming Encounters Date Type Department Care Team (Late st Contact Info) Description 06/05/2024 10:15 AM EST Office Visit [place] [address] Namita Bansal MD [facility] [place] [address] documented as of this encounter Goals Goal Patient Goal Type Associated Problems Recent Progress Patient-Stated? Author Exercise 3x per week (30 min per time) Exercise No Keila Arango CDE documented as of this encounter Results * (ABNORMAL) Creatinine (05/15/2019 9:29 AM EST) Creatinine 0.67(L) 0.70 - 1.20 mg/dL [facility] Est Glomerular Filtration Rate 94 >=60 mL/min/1.7 3 m?? [facility] Comment: The eGFR was calculated using the CKD-EPI equation. As with all creatinine based estimates of kidney function, eGFR values calculated with the CKD-EPI equation are not accurate in patients with acute kidney failure, extremes of body mass or the acutely ill. http://[employer]/DHnkf eGFR 109 >=60 mL/min/1.7 3 m?? [facility] Comment: The eGFR was calculated using the CKD-EPI equation. As with all creatinine based estimates of kidney function, eGFR values calculated with the CKD-EPI equation are not accurate in patients with acute kidney failure, extremes of body mass or the acutely ill. [email or web address]/DHMCnkf Blood specimen (specimen) 05/15/2019 9:29 AM EST 05/15/2019 9:43 AM EST Narrative Resulting Agency Comment Spec In Lab Lin Rojas MD CHEMISTRY ORDERABLES [facility] [place] [address] * HDL/Cholesterol Profile (05/15/2019 9:29 AM EST) Cholesterol, Total 177 mg/dL M [facility] Comment: Lower Risk: <200 mg/dL Average Risk: 200-239 mg/dL Higher Risk: >cu=123 mg/dL HDL Cholesterol 69 mg/dL [facility] Comment: Males: ?? Higher Risk: <40 mg/dL Females: ?? HIgher Risk: <50 mg/dL Cholesterol/HDL Ratio 2.6 ratio [facility] Chol/HDL Interpretation See Note [facility] Comment: Lipid management should be guided by a patient? s ASCVD risk, goals and preferences. ACC/AHA Guidelines recommend high intensity statin if clinical ASCVD or LDL greater than or equal to 190 mg/dL. http://[employer].com/VZX-PRD-Lqxdssogg Measure LDL if Total Cholesterol minus HDL Cholesterol is greater than 220 mg/dL. Adults aged 40-75 with LDL 70-189 mg/dL should have their 10 year ASCVD risk estimated with the ACC/AHA ASCVD risk construction cost estimator http://tools.acc.org/JTRLP-Dmxc-Giwasdkib/ Statin should be discussed if risk greater [...] Rojas MD CHEMISTRY ORDERABLES Performing Organization Address [facility] Co de Phone Number [facility] [place] [address] * LDL Cholesterol, Direct (05/15/2019 9:29 AM EST) LDL Cholesterol, Direct 111 mg/dL [facility] Comment: Lowest Risk: <100 mg/dL Lower Risk: 100-129 mg/dL Borderline High Risk: 130-159 mg/dL High Risk: 160-189 mg/dL Very High Risk: >ok=531 mg/dL Blood specimen (specimen) 05/15/2019 9:29 AM EST 05/15/2019 9:43 AM EST Narrative Resulting Agency Comment Spec In Lab Lin Rojas MD CHEMISTRY ORDERABLES Performing Organization Address [facility] Co de Phone Number [facility] [address] * (ABNORMAL) Hemoglobin A1c (05/15/2019 9:29 AM EST) Hemoglobin A1c 7.0(H) 4.3 - 5.6 % [facility] Comment: Reference Range: 4.3 - [...] 36: Suppl. 1, S67-74 Estimated Average Glucose 153 mg/dL [facility] Comment: eAG equivalents for HbA1c [...] into estimated average glucose values. ??Diabetes Care 2008:31(8):0675-1243. Blood specimen (specimen) 05/15/2019 9:29 AM EST 05/15/2019 9:43 AM EST Narrative Resulting Agency Comment Spec In Lab Lin Rojas MD CHEMISTRY ORDERABLES [facility] [place] [address] documented in this encounter Visit Diagnoses Diagnosis Diabetes mellitus type 1, uncomplicated Type I (juvenile type) diabetes mellitus without mention of complication, not stated as uncontrolled Insulin pump in place Insulin pump status Tingling of both feet documented in this encounter Care Teams Booking Agent Relationship Specialty Start Date End Date Mitchell Yap MD [address] [place], [place] [address] PCP - General 05/19/10 07/17/23 documented as of this encounter
--- OUTSIDE RECORDS SUMMARY | 2024-04-18 13:15 | XMS_ITS | Encounter Summary ---
Author Organization [facility] [place] [address] Care Team Providers Care Tile Decorator Name Role Phone Mitchell Yap MD Primary Care Provider [phone] Reason for Visit * Reason Comments Medication Refill Encounter Details Date Type Department Care Team (Late st Contact Info) Description 03/05/2019 Ref[place] [address] Lin Rojas MD [facility] [place] [address] Social History Tobacco Use Types Packs/Day Years [...] 10:15 AM EST Office [place] [address] Namita Bansal MD [facility] [place] [address] documented as of this encounter Goals Goal Patient Goal Type Associated Problems Recent Progress Patient-Stated? Author Exercise 3x per week (30 min per time) Exercise No Keila Arango, VELMAE documented as of this encounter Visit Diagnoses Not on filedocumented in this encounter Care Teams Tile Decorator Relationship Specialty Start Date End Date Mitchell Yap MD [address] [place] [address] PCP - General 05/19/10 07/17/23 documented as of this encounter
--- OUTSIDE RECORDS SUMMARY | 2024-04-18 13:15 | XMS_ITS | Encounter Summary ---
[place] [address] Care Team Providers Care Swatch Paster Name Role Phone Mitchell Yap MD Primary Care Provider [phone] Encounter Details Date Type Department Care Team (Latest Contact Info) Description 05/15/2019 10:30 AM EST Office [place] [address] Abby Campbell, [facility] [place] [address] Diabetes mellitus type 1, uncomplicated Social History Tobacco Use Types Packs/Day Years [...] Sign Reading Time Taken Comments Blood Pressure 124/61 05/15/2019 10:04 AM EST Pulse 83 05/15/2019 10:04 AM EST Temperature - - Respiratory Rate - - Oxygen Saturation - - Inhaled Oxygen Concentration - - Weight 55.4 kg (122 lb 3.2 oz) 05/15/2019 10:04 AM EST Height 151.8 cm (4' 11.75) 05/15/2019 10:04 AM EST Body Mass Index 24.07 05/15/2019 10:04 AM EST documented in this encounter Patient Instructions * Patient Instructions* Abby Campbell APRN - 05/15/2019 10:30 AM EST Lowered basal rate at 3AM to 0.4 IF AM glucose is under 90 then lower rate again to 0.375 Given info re: medtronic 670 G and Tandem pumps with rep contacts Call 1 week prior to endo appointment to make certain lab orders are entered ENJOY Grammy times!!! documented in this encounter Progress Notes * Abby Campbell APRN - 05/15/2019 10:30 AM EST Office visit note for Ebonie Naylorman. Date of visit 05/15/2019 Reason for visit: Follow-up type I DM in continued excellent control. Has hypoglycemia unawareness. Brief history: States she plans to order a pump upgrade or pump change very soon because her insurance will be changing at the end of the year. Date of diagnosis of diabetes: 1957 SBGM: Up to 8 times a day and uses Guardian sensor. Reason for higher frequency testing is to avoidsevere hypoglycemia. 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 Diabetes regimen: Medtronic 523 pump that is out of warrantee. Basal rates: 12 AM 0.45, 3 AM 0.425, 10 AM 0.5, 17:00=.575, 18:00=.5, 21:00=.45 total basal 11.25 Bolus doses: Insulin to carb at midnight 14 at 12:30=13, at 18:30=14 sensitivity factor 55 target glucose 110-140 Review of systems: Depression and mood: Worried about her 's physical and emotional health. Has an appointment later today at [facility] for medication for osteoporosis. All 12 systems reviewed and negative except as noted in history Physical exam: Appearance: She appears in good health. Weight 122 pounds. She has lost 24 pounds since previous visit with this provider. Blood pressure 124/61. Eyes: No retinopathy with greenlight exam. Neck: No thyromegaly or lymphadenopathy. Heart: Regular rate and rhythm. Lungs are clear to ausc ultation. Feet: Distal toes with dark blue discoloration. Pulses are normal. Neuro: Normal sensation to 10 G's of pressure Hemoglobin A1c 7.0%, previous was 6.7% Impression and plan: DM type I with hypoglycemia unawareness. Pump download was done by Brittney Markham RD. Data reviewed. Advised to lower 12 AM basal to .40 and lower 3 AM basal to .4. If a.m. fasting glucose is under 90, lower doses again. Patient discusses that glucose level was 500 and she gave herself an injection via syringe which was too much and then glucose levels were as low as the 40s and 30s. Gave her written information on Medtronic 670G system and tandem pump with rep contact info. Advised that she needs to decide which pump she would like to use and order it as soon as possible which may not be soon enough to use this year's medical insurance coverage. Will inform of availability of nasal glucagon at next office visit. Toe and fingertip skin changes consistent with Raynauds. Given written info Return to office in 6 months. Will check hemoglobin A1c and other labs that she is due for. This was a 39-minute office visit with 28 minutes spent counseling [id number] with patient in the management of glucose levels, specifically reviewing prevention and treatment of hypoglycemia in the setting of hypoglycemia unawareness. Recent Results (from the past 72 hour(s)) Creatinine Result Value Ref Range Creatinine 0.67 (L) 0.70 - 1.20 mg/dL eGFR 94 >=60 mL/min/1.73 m?? eGFR 109 >=60 mL/min/1.73 m?? HDL/Cholesterol Profile Result Value Ref Range Chol, Total 177 mg/dL HDL 69 mg/dL Chol/HDL Ratio 2.6 ratio Chol/HDL Interpretation See Note LDL Cholesterol, Direct Result Value Ref Range LDL Chol Direct 111 mg/dL Hemoglobin A1c Result Value Ref Range Hemoglobin A1C 7.0 (H) 4.3 - 5.6 % Est Avg Gluc 153 mg/dL documented in this encounter Plan of Treatment Upcoming Encounters Date Type Department Care Team (Late st Contact Info) Description 06/05/2024 10:15 AM EST [place] [address] Namita Bansal MD [facility] [place] [address] documented as of this encounter Goals Goal Patient Goal Type Associated Problems Recent Progress Patient-Stated? Author Exercise 3x per week (30 min per time) Exercise No Keila Arango CDE documented as of this encounter Procedures Procedure Name Priority Date/Time Associated Diagnosis Comments ORDS - PROVIDER CARE SCAN 06/21/2019 12:00 AM EST documented in this encounter Results * SCAN DOC: ORDS - PROVIDER CARE (06/21/2019 12:00 AM EST) Narrative 06/21/2019 12:00 AM EST Ordered by an unspecified provider. Scanning Provider MEDIA MGR SCAN EXT O RDR/RSLT documented in this encounter Visit Diagnoses Diagnosis Diabetes mellitus type 1, uncomplicated Type I (juvenile type) diabetes mellitus without mention of complication, not stated as uncontrolled documented in this encounter Care Teams Swatch Paster Relationship Specialty Start Date End Date Mitchell Yap MD [address] [place] [address] PCP - General 05/19/10 07/17/23 documented as of this encounter
--- OUTSIDE RECORDS SUMMARY | 2024-04-18 13:15 | XMS_ITS | Encounter Summary ---
[place] [address] Care Team Providers Care Editor Greeting Card Name Role Phone Mitchell Yap MD Primary Care Provider [phone] Encounter Details Date Type Department Care Team (Late st Contact Info) Description 06/25/2019 [place] [address] Blaze Lora RN Social History Tobacco Use [...] Telephone Encounter - Blaze Lora RN - 06/25/2019 10:29 AM EST Patient left voicemail that she won't have her pump supplies until the end of the week. She would like to know how much insulin to take in the mean time, as well as when to take it. She also requestsprescriptions for the insulin and syringes be sent in as well. Did not specify pharmacy but appearsto use [facility] in [place], [place]. documented in this encounter Plan of Treatment Upcoming Encounters Date Type Department Care Team (Late st Contact Info) Description 06/05/2024 10:15 AM EST Office [place] [address] Namtia Bansal MD [facility] [place] [address] documented as of this encounter Goals Goal Patient Goal Type Associated Problems Recent Progress Patient-Stated? Author Exercise 3x per week (30 min per time) Exercise No Keila Arango, CDE documented as of this encounter Visit Diagnoses Not on filedocumented in this encounter Care Teams Editor Greeting Card Relationship Specialty Start Date End Date Mitchell Yap MD [address] [place] [address] PCP - General 05/19/10 07/17/23 documented as of this encounter
--- OUTSIDE RECORDS SUMMARY | 2024-04-18 13:15 | XMS_ITS | Encounter Summary ---
[place] [address] Care Team Providers Care Cable Respooler Name Role Phone Mitchell Yap MD Primary Care Provider [phone] Encounter Details Date Type Department Care Team (Latest Contact Info) Description 10/31/2018 10:30 AM EDT Laboratory Appointment Lab [address] [place] [address] Diabetes mellitus type 1, uncomplicated Social History [...] 10:15 AM EST Office [place] [address] Namita Bansal MD [facility] [place] [address] documented as of this encounter Goals Goal Patient Goal Type Associated Problems Recent Progress Patient-Stated? Author Exercise 3x per week (30 min per time) Exercise Keila Espinoza, CHRISTIANO documented as of this encounter Procedures Procedure Name Priority Date/Time Associated Diagnosis Comments TSH STAT 10/31/2018 10:35 AM EDT Diabetes mellitus type 1, uncomplicated LDL CHOLESTEROL, DIRECT STAT 10/31/2018 10:35 AM EDT Diabetes mellitus type 1, uncomplicated HEMOGLOBIN A1C STAT 10/31/2018 10:35 AM EDT Diabetes mellitus type 1, uncomplicated U ALBUMIN/CRE RATIO STAT 10/31/2018 1 0:33 AM EDT Diabetes mellitus type 1, uncomplicated documented in this encounter Results * (ABNORMAL) Hemoglobin A1c (10/31/2018 10:35 AM EDT) Hemoglobin A1c 6.7(H) 4.3 - 5.6 % [facility] [...] Mellitus, Diabetes Care 2013; 36: Suppl. 1, S17-49 Estimated Average Glucose 145 mg/dL [facility] Comment: [...] into estimated average glucose values. ??Diabetes Care 2008:31(8):0546-0392. Blood specimen (specimen) 10/31/2018 10:35 AM EDT 10/31/2018 10:41 AM EDT Narrative Resulting Agency Comment Spec In Lab Abby E Bilotta PRICING STRATEGIST CHEMISTRY ORDERABLE S Performing Organization Address [facility] Co de Phone Number [facility] [place] [address] * TSH (10/31/2018 10:35 AM EDT) Thyroid Stimulating Hormone 3.02 0.27 - 4.20 mcIU/mL [facility] Blood specimen (specimen) 10/31/2018 10:35 AM EDT 10/31/2018 10:41 AM EDT Narrative Resulting Agency Comment Spec In Lab Abby E Bilotta PRICING STRATEGIST CHEMISTRY ORDERABLE S Performing Organization Address [facility] Co de Phone Number [facility] [place] [place] [address] * LDL Cholesterol, Direct (10/31/2018 10:35 AM EDT) LDL Cholesterol, Direct 127 mg/dL [facility] Comment: Lowest Risk: <100 mg/dL Lower Risk: 100-129 mg/dL Borderline High Risk: 130-159 mg/dL High Risk: 160-189 mg/dL Very High Risk: >do=239 mg/dL Blood specimen (specimen) 10/31/2018 10:35 AM EDT 10/31/2018 10:41 AM EDT Narrative Resulting Agency Comment Spec In Lab Abby Lulu Bendera PRICING STRATEGIST CHEMISTRY ORDERABLE S Performing Organization Address [facility] Co de Phone Number [facility] [place] [address] * U Albumin/Cre Ratio (10/31/2018 10:33 AM EDT) Albumin / Creatinin Ratio, Urine 3 0 - 29 mcg/mg Cr [facility] [...] Supplements (2012) 2, 357? 362 Albumin, Urine 3.5 mg/L [facility] Creatinine, Urine 113 mg/dL [facility] Urine specimen (specimen) 10/31/2018 10:33 AM EDT 10/31/2018 10:37 AM EDT Narrative Resulting Agency Comment Spec In Lab Abbyalix Bendera PRICING STRATEGIST URINE ORDERABLES Performing Organization Address [facility] Co de Phone Number [facility] [place] [address] documented in this encounter Visit Diagnoses Diagnosis Diabetes mellitus type 1, uncomplicated Type I (juvenile type) diabetes mellitus without mention of complication, not stated as uncontrolled documented in this encounter Care Teams Cable Respooler Relationship Specialty Start Date End Date Mitchell Yap MD [address] [place] [address] PCP - General 05/19/10 07/17/23 documented as of this encounter
--- OUTSIDE RECORDS SUMMARY | 2024-04-18 13:15 | XMS_ITS | Encounter Summary ---
[place] [address] Care Team Providers Care Yarn Texturing Machine Operator Name Role Phone Mitchell Yap MD Primary Care Provider [phone] Reason for Visit * Reason Onset Date Comments Medication Refill 04/24/2020 Encounter Details Date Type Department Care Team (Late st Contact Info) Description 04/24/2020 Refill [place] [address] Inessa Langston V, RN Type 1 diabetes mellitus without complication, with harness maker current use of insulin pump Social History [...] 10:15 AM EST Office [place] [address] Namita Bansal MD [facility] [place] [address] documented as of this encounter Goals Goal Patient Goal Type Associated Problems Recent Progress Patient-Stated? Author Exercise 3x per week (30 min per time) Exercise No Keila Arango, CDE documented as of this encounter Visit Diagnoses Diagnosis Type 1 diabetes mellitus without complication, with harness maker current use of insulin pump documented in this encounter Care Teams Yarn Texturing Machine Operator Relationship Specialty Start Date End Date Mitchell Yap MD [address] [place] [address] PCP - General 05/19/10 07/17/23 documented as of this encounter
--- OUTSIDE RECORDS SUMMARY | 2024-04-18 13:15 | XMS_ITS | Encounter Summary ---
Author Organization [facility] [address] Care Team Providers Care Entrepreneur Name Role Phone Mitchell Yap MD Primary Care Provider [phone] Encounter Details Date Type Department Care Team (Late st Contact Info) Description 10/17/2019 Telephone [place] [address] [place] [place] [address] Social History Tobacco Use Types Packs/Day Years [...] Telephone Encounter - Yamilet Markham RD - 10/17/2019 1:03 PM EDT Calling Ebonie regarding insulin pump training. Myself and [employer] staff tried contacting Ebonie numerous times to complete training back in June. We never heard back from her and left messages onvoicemail to this number. A man named Joss answered the call and I asked if I could leave a message. He stated that Ebonie is won't be home until around 5 PM. I left my contact information and told him that she needs to call me and if I do not answer she can leave a voicemail. Discussed I am working from home most of the time, but I do get all my voicemail messages to my email, so that I know when to call patients back using a private number. He will let Ebonie know that I called, and tell her to call me. SANTOSH Quiñones * Telephone Encounter - Yamilet Markham RD - 10/17/2019 1:03 PM EDT ----- Message from Tish Garcia sent at 10/17/2019 9:23 AM EDT ----- Would it be possible to set up a training for this patient to get her new pump up and running? documented in this encounter Plan of Treatment Upcoming Encounters Date Type Department Care Team (Late st Contact Info) Description 06/05/2024 10:15 AM EST Office Visit [place] [address] Namita Bansal MD [facility] [place] [address] documented as of this encounter Goals Goal Patient Goal Type Associated Problems Recent Progress Patient-Stated? Author Exercise 3x per week (30 min per time) Exercise No Keila Arango CDE documented as of this encounter Visit Diagnoses Not on filedocumented in this encounter Care Teams Entrepreneur Relationship Specialty Start Date End Date Mitchell Yap MD [address] [place] [address] PCP - General 05/19/10 07/17/23 documented as of this encounter
--- OUTSIDE RECORDS SUMMARY | 2024-04-18 13:15 | XMS_ITS | Encounter Summary ---
[place] [address] Care Team Providers Care Gas Line Repairer Name Role Phone Mitchell Yap MD Primary Care Provider [phone] Reason for Visit * Reason Onset Date Comments Pump/sensor 07/30/2019 Encounter Details Date Type Department Care Team (Late st Contact Info) Description 07/30/2019 Telephone [place] [address] Namita Cordero Pump/sensor Social History Tobacco Use [...] * Telephone Encounter - Namita Cordero - 08/17/2019 3:29 PM EST Confirmed 08/06 * Telephone Encounter - Namita Cordero - 07/30/2019 3:32 PM EST Minimed 670G system initiation settings received from [employer]. Given to Dr. Rojas to fill out and sign I will fax. documented in this encounter Plan of Treatment Upcoming Encounters Date Type Department Care Team (Late st Contact Info) Description 06/05/2024 10:15 AM EST Office [place] [address] Namita Bansal MD [facility] [place] [address] documented as of this encounter Goals Goal Patient Goal Type Associated Problems Recent Progress Patient-Stated? Author Exercise 3x per week (30 min per time) Exercise No Keila Arango CDE documented as of this encounter Visit Diagnoses Not on filedocumented in this encounter Care Teams Gas Line Repairer Relationship Specialty Start Date End Date Mitchell Yap MD [address] [place] [address] PCP - General 05/19/10 07/17/23 documented as of this encounter
--- OUTSIDE RECORDS SUMMARY | 2024-04-18 13:15 | XMS_ITS | Encounter Summary ---
Author Organization [facility] [place] [address] Care Team Providers Care Deckhand Shrimp Boat Name Role Phone Mitchell Yap MD Primary Care Provider [phone] Encounter Details Date Type Department Care Team (Late st Contact Info) Description 06/26/2019 Orders Only [place] [phone] Michelle Woodard MD [facility] [place] [address] Social History Tobacco Use Types Packs/Day Years [...] AM EST Office Visit [place] [address] Namita Bansal MD [facility] [place] [address] documented as of this encounter Goals Goal Patient Goal Type Associated Problems Recent Progress Patient-Stated? Author Exercise 3x per week (30 min per time) Exercise No Keila Arango, CDE documented as of this encounter Visit Diagnoses Not on filedocumented in this encounter Care Teams Deckhand Shrimp Boat Relationship Specialty Start Date End Date Mitchell Yap MD [address] [place] [address] PCP - General 05/19/10 07/17/23 documented as of this encounter
--- OUTSIDE RECORDS SUMMARY | 2024-04-18 13:15 | XMS_ITS | Encounter Summary ---
[place] [address] Care Team Providers Care Plaster Mixer Name Role Phone Mitchell Yap MD Primary Care Provider [phone] Encounter Details Date Type Department Care Team (Late Contact Info) Description 08/27/2019 Telephone [place] [phone] Tish Garcia Social History Tobacco Use Types [...] * Telephone Encounter - Tish Garcia - 08/27/2019 11:23 AM EST Pt called to check on status of pump supplies. Pt needs to call [facility] medical. documented in this encounter Plan of Treatment Upcoming Encounters Date Type Department Care Team (Late st Contact Info) Description 06/05/2024 10:15 AM EST Office [place] [address] Namita Bansal MD [facility] [place] [address] documented as of this encounter Goals Goal Patient Goal Type Associated Problems Recent Progress Patient-Stated? Author Exercise 3x per week (30 min per time) Exercise No Keila Arango, CDE documented as of this encounter Visit Diagnoses Not on filedocumented in this encounter Care Teams Plaster Mixer Relationship Specialty Start Date End Date Mitchell Yap MD [address] [place] [address] PCP - General 05/19/10 07/17/23 documented as of this encounter
--- OUTSIDE RECORDS SUMMARY | 2024-04-18 13:15 | XMS_ITS | Encounter Summary ---
[place] [address] Care Team Providers Care Nuclear Physician Name Role Phone Mitchell Yap MD Primary Care Provider [phone] Reason for Visit * Reason Onset Date Comments Pump/sensor 11/30/2019 Encounter Details Date Type Department Care Team (Late st Contact Info) Description 11/30/2019 Telephone [place] [address] Namita Cordero Pump/sensor Social History Tobacco Use [...] * Telephone Encounter - Namita Cordero - 11/30/2019 11:55 AM EDT Documentation request received from [email or web address] note routed Confirmed 11/29 documented in this encounter Plan of Treatment Upcoming Encounters Date Type Department Care Team (Late st Contact Info) Description 06/05/2024 10:15 AM EST Office [place] [address] Namita Bansal MD [facility] [place] [address] documented as of this encounter Goals Goal Patient Goal Type Associated Problems Recent Progress Patient-Stated? Author Exercise 3x per week (30 min per time) Exercise No Keila Arango, CDLulu documented as of this encounter Visit Diagnoses Not on filedocumented in this encounter Care Teams Nuclear Physician Relationship Specialty Start Date End Date Mitchell Yap MD [address] [place] [address] PCP - General 05/19/10 07/17/23 documented as of this encounter
--- OUTSIDE RECORDS SUMMARY | 2024-04-18 13:15 | XMS_ITS | Encounter Summary ---
[place] [address] Care Team Providers Care Roll Hauler Name Role Phone Mitchell Yap MD Primary Care Provider [phone] Reason for Visit * Reason Onset Date Comments Pump/sensor 12/06/2018 Encounter Details Date Type Department Care Team (Late st Contact Info) Description 12/06/2018 Tele[place] [address] Namita Cordero Pump/sensor Social History Tobacco Use [...] Telephone Encounter - Namita Cordero - 12/06/2018 4:21 PM EDT Physician order for insulin pump therapy and diabetes testing received from [facility]. Filled out. Dr. Rojas will sign. I will fax. documented in this encounter Plan of Treatment Upcoming Encounters Date Type Department Care Team (Late st Contact Info) Description 06/05/2024 10:15 AM EST Office [place] [address] Namita Bansal MD [facility] [place] [address] documented as of this encounter Goals Goal Patient Goal Type Associated Problems Recent Progress Patient-Stated? Author Exercise 3x per week (30 min per time) Exercise No Keila Arango, CHRISTIANO documented as of this encounter Visit Diagnoses Not on filedocumented in this encounter Care Teams Roll Hauler Relationship Specialty Start Date End Date Mitchell Yap MD [address] [place] [address] PCP - General 05/19/10 07/17/23 documented as of this encounter
--- OUTSIDE RECORDS SUMMARY | 2024-04-18 13:15 | XMS_ITS | Encounter Summary ---
Author Organization [facility] [place] [address] Care Team Providers Care Ceo And Founder Name Role Phone Mitchell Yap MD Primary Care Provider [phone] Encounter Details Date Type Department Care Team (Late st Contact Info) Description 07/20/2019 Telephone [place] [phone] [place] [address] Social History Tobacco Use Types Packs/Day Years [...] Telephone Encounter - Yamilet Markham RD - 07/20/2019 2:57 PM EST Was notified by YSABEL Miguel at [employer] that [employer] has been trying to reach Ebonie and they haven't been able to. I see that there is documentation of issue getting insulin pump supplies. No one answered and there was no identifying information on the VM message. Left message and asked Ebonie to return my call so can I pass along info about [employer] being unable to reach her. SANTOSH Quiñones documented in this encounter Plan of Treatment Upcoming Encounters Date Type Department Care Team (Late st Contact Info) Description 06/05/2024 10:15 AM EST Office [place] [address] Namita Bansal MD [facility] [place] [address] documented as of this encounter Goals Goal Patient Goal Type Associated Problems Recent Progress Patient-Stated? Author Exercise 3x per week (30 min per time) Exercise No Keila Arango CDE documented as of this encounter Visit Diagnoses Not on filedocumented in this encounter Care Teams Ceo And Founder Relationship Specialty Start Date End Date Mitchell Yap MD [address] [place] [address] PCP - General 05/19/10 07/17/23 documented as of this encounter
--- OUTSIDE RECORDS SUMMARY | 2024-04-18 13:15 | XMS_ITS | Encounter Summary ---
[place] [address] Care Team Providers Care Attendance Officer Name Role Phone Mitchell Yap MD Primary Care Provider [phone] Reason for Visit * Reason Onset Date Comments Pump/sensor 12/17/2019 Encounter Details Date Type Department Care Team (Late st Contact Info) Description 12/17/2019 Telephone [place] [address] Namita Cordero Pump/sensor Social History Tobacco Use [...] * Telephone Encounter - Namita Cordero - 12/27/2019 9:56 AM EDT Confirmed 12/19 * Telephone Encounter - Namita Cordero - 12/17/2019 2:36 PM EDT Prior authorization for sensors received from [employer] for [place] Medicaid. Filled out. Office notes printed Dr. Vallecillo will sign. I will fax. documented in this encounter Plan of Treatment Upcoming Encounters Date Type Department Care Team (Late st Contact Info) Description 06/05/2024 10:15 AM EST Office [place] [address] Namita Bansal MD [facility] [place] [address] documented as of this encounter Goals Goal Patient Goal Type Associated Problems Recent Progress Patient-Stated? Author Exercise 3x per week (30 min per time) Exercise No Keila Arango, CHRISTIANO documented as of this encounter Visit Diagnoses Not on filedocumented in this encounter Care Teams Attendance Officer Relationship Specialty Start Date End Date Mitchell Yap MD [address] [place] [address] PCP - General 05/19/10 07/17/23 documented as of this encounter
--- OUTSIDE RECORDS SUMMARY | 2024-04-18 13:15 | XMS_ITS | Encounter Summary ---
[place] [address] Care Team Providers Care Window Framer Name Role Phone Mitchell Yap MD Primary Care Provider [phone] Reason for Visit * Reason Onset Date Comments Pump/sensor 06/04/2019 Encounter Details Date Type Department Care Team (Late st Contact Info) Description 06/04/2019 [place] [address] Namita Cordero Pump/sensor Social History Tobacco Use [...] Telephone Encounter - Namita Cordero - 06/14/2019 3:07 PM EST Confirmed 06/07 * Telephone Encounter - Namita Cordero - 06/04/2019 7:47 AM EST Initial physician's written order for insulin pump therapy received from [facility]. Filled out. Abby Campbell will sign. I will fax. documented in this encounter Plan of Treatment Upcoming Encounters Date Type Department Care Team (Late st Contact Info) Description 06/05/2024 10:15 AM EST Office [place] [address] Namita Bansal MD [facility] [place] [address] documented as of this encounter Goals Goal Patient Goal Type Associated Problems Recent Progress Patient-Stated? Author Exercise 3x per week (30 min per time) Exercise No Keila Arango CDE documented as of this encounter Visit Diagnoses Not on filedocumented in this encounter Care Teams Window Framer Relationship Specialty Start Date End Date Mitchell Yap MD [address] [place] [address] PCP - General 05/19/10 07/17/23 documented as of this encounter
--- OUTSIDE RECORDS SUMMARY | 2024-04-18 13:15 | XMS_ITS | Encounter Summary ---
Author Organization [facility] [place] [address] Care Team Providers Care Aviation Boatswain'S Mate Name Role Phone Mitchell Yap MD Primary Care Provider [phone] Reason for Visit * Auth/Cert Specialty Diagnoses / Procedures Referred By Malka vera Referred To Contact Diagnoses trigger finger, left middle finger Procedures PRO INCISE FINGER TENDON SHEATH TENDON SHEATH INCISION (TRIGGER FINGER) (WRVU 3.11) Referral ID Status Reason Start Date Expiration Date Visits Re quested Visits Authorized [id number] 1 1 Encounter Details Date Type Department Care Team (Latest Contact Info) Description 10/10/2018 8:12 AM EDT - 10/10/2018 10:25 AM EDT Hospital Encounter [place] [address] Jean Diehl MD [facility] [place] [address] Discharge Disposition: Home Social History Tobacco Use [...] closest emergency room or call the hospital shuttle operator at [phone] and ask for physician clay pigeon loader covering for your physician. Questions or problems after 5pm or on a weekend: Call the [facility] shuttle operator at and ask for the physician clay pigeon loader covering for your doctor. * Patient Instructions* [...] on them. You can also take an [id number] stool softener, colace or senna, to facilitatea [...] keep the tendons gliding. Call your doctor (#[phone]) if: ?? You have a fever > 101.5 or experience chills Increased discharge from the incision Any redness or swelling around the incision Increased pain or change in the pain that is not controlled by your pain medications WHERE TO CALL WITH QUESTIONS [facility] Ask for the resident clay pigeon loader for your provider [facility] (7:00am - 5:00pm) Future Appointments Date Time Provider Department Center 10/20/2018 11:00 AM Montana Lopez PA [facility]A [facility] 10/31/2018 10:30 AM LAB, THREE L Lab 3L [facility] 10/31/2018 10:30 AM DIABETES, SUPPORT [facility] 10/31/2018 11:30 AM Lin Rojas MD [facility] documented in this encounter Medications at Time of Discharge Medication Sig Dispensed Refills Start Date End Date Diabetic Supplies, Miscellan. [facility] CMN form faxed to [employer] 100 each 12 02/24/2017 Diabetic Supplies, Miscellan. [facility] PWO faxed to [facility] Medical 100 each 12 01/17/2017 ADVAIR DISKUS 100-50 mcg/dose Disk with Device Inhale 1 puff into the lungs daily. 11/23/2016 Diabetic Supplies, Miscellan. [facility] Form faxed to [facility] for insulin pump supplies 1 each [...] Solution Inject 40-50 Units subcutaneously continuous. Via Minimed Paradigm 523 50 mL 3 01/30/2018 04/03/2019 [...] Diehl MD - 10/10/2018 9:12 AM EDT [facility] Operative Note Patient Name: Ebonie Sol : [id number] MR#: [id number] Case Date: 10/10/2018 Surgeon: Surgeon(s) and Role: [...] preoperative timeout was performed as per [facility] protocol. Then 2 mL of 2% lidocaine [...] Operative Note Patient Name: Ebonie Sol : [id number] MR#: [id number] Case Date: 10/10/2018 Surgeon: Surgeon(s) and Role: [...] 10:15 AM EST Office [place] [address] Namita Bansal MD [facility] [place] [address] documented as of this encounter Goals Goal [...] finger documented in this encounter Visit Diagnoses Not [...] Day of Surgery (Day of Procedure), Routine sodium chloride 0.9 % flush 5-20 mL [...] from all sources in 24 hours., Routine 0829 (Given - Provid er: Marino Freedman RN) [...] Until Tue10/10/18 at 1226, Intra-Operative (Intra-Procedure), Routine 0924 (Given - Provid er: Jean Diehl MD - Comment: Mixed w/ 2mL of Sodium bicarb.) sodium bicarbonate 8.4 % (1 meq/ml) IV solution (CANCELED) ONCE PRN, Starting on Tue10/10/18 at 0924, Until Tue10/10/18 at 1226, Intra-Operative (Intra-Procedure), Routine 0924 (Given - Provid er: Jean Diehl MD [...] Routine documented in this encounter Care Teams Aviation Boatswain'S Mate Relationship Specialty Start Date End Date Mitchell Yap MD [address] [place] [address] PCP - General 05/19/10 07/17/23 documented as of this encounter
--- OUTSIDE RECORDS SUMMARY | 2024-04-18 13:15 | XMS_ITS | Encounter Summary ---
[place] [address] Care Team Providers Care Soil Science Professor Name Role Phone Mitchell Yap MD Primary Care Provider [phone] Reason for Visit * Reason Onset Date Comments Prior Authorization 11/06/2019 Encounter Details Date Type Department Care Team (Late st Contact Info) Description 11/06/2019 Telephone [place] [address] Namita Cordero Prior Authorization Social History Tobacco [...] * Telephone Encounter - Namita Cordero - 11/06/2019 10:29 AM EDT Medication Prior Authorization Crystal Medication name/dose/directions: Contour Next Test Strips - test 8x daily Rationale for request: Type I DM Health plan: [place] Medicaid ([place]) Authorizing termite control service representative name: Nedra Sent to health plan on: 11/06/19 Health plan decision: Approved Quantity approved: 200 per 25 days Authorization number: [id number] Start date: 11/06/19 End date: 11/05/20 documented in this encounter Plan of Treatment Upcoming Encounters Date Type Department Care Team (Late st Contact Info) Description 06/05/2024 10:15 AM EST Office [place] [address] Namita Bansal MD [facility] [place] [address] documented as of this encounter Goals Goal Patient Goal Type Associated Problems Recent Progress Patient-Stated? Author Exercise 3x per week (30 min per time) Exercise No Keila Arango CDE documented as of this encounter Visit Diagnoses Not on filedocumented in this encounter Care Teams Soil Science Professor Relationship Specialty Start Date End Date Mitchell Yap MD [address] [place] [address] PCP - General 05/19/10 07/17/23 documented as of this encounter
--- OUTSIDE RECORDS SUMMARY | 2024-04-18 13:15 | XMS_ITS | Encounter Summary ---
[place] [address] Care Team Providers Care Boat Motor Mechanic Name Role Phone Mitchell Yap MD Primary Care Provider [phone] Reason for Visit * Reason Onset Date Comments Pump/sensor 10/24/2019 Encounter Details Date Type Department Care Team (Late st Contact Info) Description 10/24/2019 Telephone [place] [address] [facility] [place] [address] Pump/sensor Social History Tobacco Use Types Packs/Day [...] Telephone Encounter - Yamilet Markham RD - 10/24/2019 4:11 PM EDT Minimed 670G Initiation Settings received from Sabrina Zepeda RN at [employer]. In basket message request sent to Dr. Mason for settings, received 10/25. Scanned and emailed to onsite staff to print and leave in sign station for sig. Attending or Fellow will sign. Onsite staff will fax. SANTOSH Quiñones documented in this encounter Plan of Treatment Upcoming Encounters Date Type Department Care Team (Late st Contact Info) Description 06/05/2024 10:15 AM EST Office [place] [address] Namita Bansal MD [facility] [place] [address] documented as of this encounter Goals Goal Patient Goal Type Associated Problems Recent Progress Patient-Stated? Author Exercise 3x per week (30 min per time) Exercise No Keila Arango CDE documented as of this encounter Visit Diagnoses Not on filedocumented in this encounter Care Teams Boat Motor Mechanic Relationship Specialty Start Date End Date Mitchell Yap MD [address] [place] [address] PCP - General 05/19/10 07/17/23 documented as of this encounter
--- OUTSIDE RECORDS SUMMARY | 2024-04-18 13:15 | XMS_ITS | Encounter Summary ---
[place] [address] Care Team Providers Care Anime Artist Name Role Phone Mitchell Yap MD Primary Care Provider [phone] Encounter Details Date Type Department Care Team (Late st Contact Info) Description 10/17/2019 Telephone [place] [phone] Tish Garcia Social History Tobacco Use Types [...] * Telephone Encounter - Tish Garcia - 10/17/2019 8:40 AM EDT Patient wanted to know if it was possible to write a script for her old pump supplies because she doesn't know how to use the new pump and the supplies that came with it. I told the patient to call [facility] medical and have them send a request for the old pump supplies. Sent a message to Yamilet Markham about a helping this patient set up her new pump. documented in this encounter Plan of Treatment Upcoming Encounters Date Type Department Care Team (Late st Contact Info) Description 06/05/2024 10:15 AM EST Office Visit [place] [address] Namita Bansal MD [facility] [place] [address] documented as of this encounter Goals Goal Patient Goal Type Associated Problems Recent Progress Patient-Stated? Author Exercise 3x per week (30 min per time) Exercise No Keila Arango, CDLulu documented as of this encounter Visit Diagnoses Not on filedocumented in this encounter Care Teams Anime Artist Relationship Specialty Start Date End Date Mitchell Yap MD [address] [place] [id number] PCP - General 05/19/10 07/17/23 documented as of this encounter
--- OUTSIDE RECORDS SUMMARY | 2024-04-18 13:15 | XMS_ITS | Encounter Summary ---
[place] [address] Care Team Providers Care Employee Operations Examiner Name Role Phone Mitchell Yap MD Primary Care Provider [phone] Reason for Visit * Reason Onset Date Comments Pump/sensor 10/16/2019 Encounter Details Date Type Department Care Team (Late st Contact Info) Description 10/16/2019 [place] [phone] Namita Cordero Pump/sensor Social History Tobacco Use [...] * Telephone Encounter - Namita Cordero - 10/16/2019 7:52 AM EDT Documentation request received from [employer]. 2 office notes routed Confirmed 10/15 documented in this encounter Plan of Treatment Upcoming Encounters Date Type Department Care Team (Late st Contact Info) Description 06/05/2024 10:15 AM EST Office [place] [address] Namita Bansal MD [facility] [place] [address] documented as of this encounter Goals Goal Patient Goal Type Associated Problems Recent Progress Patient-Stated? Author Exercise 3x per week (30 min per time) Exercise No Keila Arango, CDE documented as of this encounter Visit Diagnoses Not on filedocumented in this encounter Care Teams Employee Operations Examiner Relationship Specialty Start Date End Date Mitchell Yap MD [address] [place] [address] PCP - General 05/19/10 07/17/23 documented as of this encounter
--- OUTSIDE RECORDS SUMMARY | 2024-04-18 13:15 | XMS_ITS | Encounter Summary ---
Author Organization [facility] [place] [address] Care Team Providers Care Summer Sessions Director Name Role Phone Mitchell Yap MD Primary Care Provider [phone] Reason for Visit * Auth/Cert Specialty Diagnoses / Procedures Referred By Malka vera Referred To Contact Diagnoses trigger finger, left middle finger Procedures PRO INCISE FINGER TENDON SHEATH TENDON SHEATH INCISION (TRIGGER FINGER) (WRVU 3.11) Referral ID Status Reason Start Date Expiration Date Visits Re quested Visits Authorized [id number] 1 1 Encounter Details Date Type Department Care Team (Late st Contact Info) Description 10/10/2018 9:12 AM EDT Anesthesia Event [place] [address] Carmela Pena MD [facility] [place] [address] Laurent Unger MD [facility] [place] [address] Anesthesia Record Procedure Summary Procedure Name Responsible Anesthesiologist Anesthesia Start Time Anesthesia Stop Time TENDON SHEATH INCISION (TRIGGER FINGER) (WRVU 3.11) (Right: Finger) Carmela Pena MD 10/10/18 0912 10/10/18 0944 Events Date Time Event Comment 10/10/2018 0907 0912 Start 0913 AN Verify 0914 An Start Data 0914 Anesthesia Ready 0923 an jose now Time out done. Local per surgeon. 0927 Break/Relief In TERESA Tavera CHRISSY MANZO CRNA 0938 An Tourn Deflated 13 minutes total 0941 an stop data 0944 Recovery or ICU Handoff Deya ent care was transferred to the destination unit staff after review of the patient's medical history, current anesthetic/surgical status and plan, according to the Provider Handoff Checklist. 0944 Stop Meds Name Total Midazolam 2 mg fentaNYL 100 mcg IV Lidocaine 50 mg Dexmedetomidine 8 mcg Ondansetron 4 mg Ketorolac 15 mg Propofol INF 85.55 mg PHENYLephrine 80 mcg lactated ringers infusion 600 mL * Agents Name O2 Air N2O O2 Auxiliary Flowmeter 1 * Blood No blood administrations on file. Lines, Drains, and Airways Type Details Placement Removal Incision 09/26/18; third fing er; Left long finger; 02/22/22 (LDA cleanup utility RA#[id number]); 1715 (LDA cleanup utility RA#[id number]) 09/26/18 0000 by Lin Walls RN 02/22/22 1715 by Evita Ramos Supraglottic Oral Airway: 80 mm ( 3); Inserted by: Holland PARRA; Removal Date: 10/10/18; Removal Time: 1015 09/26/18 0945 by Teresa Lino CRNA 10/10/18 1015 by Alexa Aguillon, JAYDEN (RETIRED) Peripheral IV Line - Single Lumen 10/10/18; 0846; cephalic vein (lateral side of arm), left; 20 gauge; distraction, intradermal injection, tolerated well, appears comfortable; site benign ; no longer indicated, removed per policy/procedure, catheter/device intact; 10/10/18; 1014 10/10/18 0846 by Marino Freedman 10/10/18 1014 by Alexa Aguillon RN Incision 10/10/18; 0924; [place] finger; 02/22/22 (LDA cleanup utility RA#[id number]); 1715 (LDA cleanup utility RA#[id number]) 10/10/18 0924 by Ava Del Real RN 02/22/22 1715 by Evita Ramos documented in this encounter Social History Tobacco [...] Postprocedure Evaluation - Carmela Pena MD - 10/10/2018 11:25 AM EDT [facility] [place] Department of Anesthesiology Post-procedure Note Patient: Ebonie Sol Procedure Summary Date: 10/10/18 Room / Location: [facility] [place] [place] OR [address] [place] [address] Anesthesia Start: 911 Anesthesia Stop: 943 Procedure: TENDON SHEATH INCISION (TRIGGER FINGER) (WRVU 3.11) (Right Finger) Diagnosis: Trigger finger, right index finger Trigger finger, left middle finger (trigger finger, left middle finger) Surgeon: Laith Diehl MD Responsible Provider: Carmela Pena MD Anesthesia Type: MAC ASA Status: 2 All Anesthesia Providers: Anesthesiologist: Carmela Pena MD SPOON MAKER: Nona Miguel CRNA Vitals Value Taken Time BP 132/61 10/10/2018 9:48 AM Temp 36.7 ??C (98.1 ??F) 10/10/2018 9:48 AM Pulse 70 10/10/2018 9:48 AM Resp 16 10/10/2018 9:48 AM SpO2 99 % 10/10/2018 9:53 AM Pain Level 0 10/10/2018 10:13 AM Patient Location: PACU/[facility] Level of Consciousness: Awake and Alert Pain Management: Satisfactory Analgesia PONV: None Cardiovascular Status: At Baseline Respiratory Status: Room Air and Stable Respiratory Status Postoperative Fluid Status: Intravascular EUvolemia Possible Anesthetic Complications: NONE apparent at time of evaluation Final Primary Anesthesia Type: MAC (The anesthetic type performed was the same as planned.) Comments: Ms. Sol tolerated the procedure well and without complication. VSS on RA. * Anesthesia Preprocedure Evaluation - Carmela Pena MD - 10/10/2018 8:25 AM EDT Pre-Anesthesia Evaluation for: Ebonie Sol a 63 y.o. female. Procedure(s): TENDON SHEATH INCISION (TRIGGER [...] x2 ??? PILONIDAL CYST EXCISION ??? PRO INCISE FINGER TENDON SHEATH Left 06/10/2016 TENDON SHEATH INCISION (TRIGGER FINGER) (WRVU 3.11) performed by Laith Diehl MD at [facility] ??? PRO INCISE FINGER TENDON SHEATH Left 09/26/2018 TENDON SHEATH INCISION (TRIGGER FINGER) (WRVU 3.11) performed by Laith Diehl MD at [facility] ??? PRO WRIST ARTHROSCOP, RELEASE XVERS LIG Left 06/16/2015 ENDOSCOPY WRIST W/ RELEASE TRANSVERSE CARPAL LIGAMENT performed by Laith Diehl MD at [facility] Social History Tobacco Use ??? Smoking status: Former Smoker Types: Cigarettes Last attempt to quit: 02/16/1979 Years since quittin.6 ??? Smokeless tobacco: Never Used Substance Use Topics ??? Alcohol use: Not Currently Comment: Stopped Feb 17, 2018 Social History Substance and Sexual Activity Drug Use No Allergies Allergen Reactions ??? Penicillins Hives ??? Codeine Nausea And Vomiting ??? Prochlorperazine Medications: MAR and/or home medications have been reviewed. Physical Exam: There were no vitals filed for this visit. There is no height or weight on file to calculate BMI. Airway Assessment: Mallampati: II TM distance: >3 FB Neck ROM: full Cardiovascular Assessment: Pulmonary Assessment: Dental Assessment: - normal exam Misc Assessment: IV access: Peripheral line Anesthesia Plan: ASA 2 MAC, with a(n) intravenous induction Ms. Sol is a 63 year old female with PMHx of remote tobacco abuse, DMI (insulin pump; FBS 146-151 this morning), HTN (on lisinopril), asthma (on Advair), and a right trigger finger scheduled for release. Pt tolerated the procedure under MAC on 09/26/18 without issue - of note, pt would prefer to AVOID Decadron for ANTONIO PPX as she reports issues with elevated BP following previous administration. Allergies reviewed. Plan for preoperative Tylenol, MAC. Risks were discussed at length, and all questions and concerns were addressed. Consent was obtained, and the appropriate paperwork was placed in the patient's chart. Region - Other Informed Consent: Anesthetic plan and risks discussed with patient and spouse. Plan discussed with SPOON MAKER. PAT Clinic Note documented in this encounter Plan of Treatment Upcoming Encounters Date Type Department Care Team (Late st Contact Info) Description 06/05/2024 10:15 AM EST Office [place] [address] Namita Bansal MD [facility] [place] [address] documented as of this encounter Goals Goal Patient Goal Type Associated Problems Recent Progress Patient-Stated? Author Exercise 3x per week (30 min per time) Exercise No Keila Arango CDE documented as of this encounter Visit Diagnoses Not on filedocumented in this encounter Administered Medications Inactive Administered Medications - up to 3 most recent administrations Medication Order MAR Action Action Date Dose Rate Site dexmedetomidine (PRECEDEX) injection PRN, Starting on Tue10/10/18 at 0914, Until Tue10/10/18 at 0944, Anesthesia Intra-op, Routine Given 10/10/2018 9:22 AM EDT 4 mcg Given 10/10/2018 9:14 AM EDT 4 mcg fentaNYL 50 mcg/mL multi-dose injection PRN, Starting on Tue10/10/18 at 0912, Until Tue10/10/18 at 0944, Anesthesia Intra-op, Routine Given 10/10/2018 9:21 AM EDT 25 mcg Given 10/10/2018 9:18 AM EDT 25 mcg Given 10/10/2018 9:15 AM EDT 25 mcg ketorolac (TORADOL) injection PRN, Starting on Tue10/10/18 at 0914, Until Tue10/10/18 at 0944, Anesthesia Intra-op, Routine Given 10/10/2018 9:14 AM EDT 15 mg lidocaine (PF) (XYLOCAINE) 100 mg/5 mL (2 %) injection PRN, Starting on Tue10/10/18 at 0915, Until Tue10/10/18 at 0944, Anesthesia Intra-op, Routine Given 10/10/2018 9:15 AM EDT 50 mg midazolam (PF) (VERSED) multi-dose injection PRN, Starting on Tue10/10/18 at 0914, Until Tue10/10/18 at 0944, Anesthesia Intra-op, Routine Given 10/10/2018 9:14 AM EDT 2 mg ondansetron (ZOFRAN) injection PRN, Starting on Tue10/10/18 at 0914, Until Tue10/10/18 at 0944, Anesthesia Intra-op, Routine Given 10/10/2018 9:14 AM EDT 4 mg PHENYLephrine in NS (PF) (MIKAYLA-SYNEPHRINE) 0.8 mg/10 mL (80 mcg/mL) multi-dose injection Syrg PRN, Starting on Tue10/10/18 at 0928, Until Tue10/10/18 at 0944, Anesthesia Intra-op, Routine Given 10/10/2018 9:31 AM EDT 40 mcg Given 10/10/2018 9:28 AM EDT 40 mcg propofol (DIPRIVAN) infusion CONTINUOUS PRN, Starting on Tue10/10/18 at 0914, Until Tue10/10/18 at 0944, Anesthesia Intra-op, Routine Rate/Dose Change 10/10/2018 9:21 AM EDT 100 mcg/kg/min 35.4 mL/hr New Bag 10/10/2018 9:14 AM EDT 150 mcg/kg/min 53.1 mL/h r documented in this encounter Care Teams Summer Sessions Director Relationship Specialty Start Date End Date Mitchell Yap MD [address] [place] [address] PCP - General 05/19/10 07/17/23 documented as of this encounter
--- OUTSIDE RECORDS SUMMARY | 2024-04-18 13:15 | XMS_ITS | Encounter Summary ---
Author Organization [facility] [place] [address] Care Team Providers Care Md Ophthalmologist Name Role Phone Mitchell Yap MD Primary Care Provider [phone] Reason for Visit * Reason Comments Medication Refill Encounter Details Date Type Department Care Team (Late st Contact Info) Description 04/03/2019 Refill [place] [address] Lin Rojas MD [facility] [place] [address] Social History Tobacco Use Types Packs/Day Years [...] 10:15 AM EST Office [place] [address] Namita Bansal MD [facility] [place] [address] documented as of this encounter Goals Goal Patient Goal Type Associated Problems Recent Progress Patient-Stated? Author Exercise 3x per week (30 min per time) Exercise No Keila Arango, VELMAE documented as of this encounter Visit Diagnoses Not on filedocumented in this encounter Care Teams Md Ophthalmologist Relationship Specialty Start Date End Date Mitchell Yap MD [address] [place] [address] PCP - General 05/19/10 07/17/23 documented as of this encounter
--- OUTSIDE RECORDS SUMMARY | 2024-04-18 13:16 | XMS_ITS | Encounter Summary ---
[place] [address] Care Team Providers Care Manual Arts Teacher Name Role Phone Mitchell Yap MD Primary Care Provider [phone] Encounter Details Date Type Department Care Team (Latest Contact Info) Description 05/22/2018 3:00 PM EST Office [place] [address] Abby Campbell, [facility] [place] [address] Diabetes mellitus type 1, uncomplicated Social History Tobacco Use Types Packs/Day Years Used Date Smoking Tobacco: Former Cigarettes Q uit: 02/16/1979 Smokeless Tobacco: Never Alcohol Use Standard Drinks/Week Comments Yes 0 (1 standard drink = 0.6 oz pur e alcohol) 3 drinks/week Sex and Gender Information Value Date Recorded Sex Assigned at Female 11/02/2020 3:40 PM EDT Gender Identity Female 11/02/2020 3:40 PM EDT Sexual Orientation Straight 11/02/2020 3: 40 PM EDT documented as of this encounter Last Filed Vital Signs Vital Sign Reading Time Taken Comments Blood Pressure 127/60 05/22/2018 2:41 PM EST Pulse 73 05/22/2018 2:41 PM EST Temperature - - Respiratory Rate - - Oxygen Saturation - - Inhaled Oxygen Concentration - - Weight 66.2 kg (146 lb) 05/22/2018 2:41 PM EST Height 149.9 cm (4' 11.02) 05/22/2018 2:[address] Body Mass Index 29.47 05/22/2018 2:41 PM EST documented in this encounter Patient Instructions * Patient Instructions* Abby Campbell APRN - 05/22/2018 3:00 PM EST Consider changing I : carb at 12:30 to 14 strength training for bone health documented in this encounter Progress Notes * Abby Campbell APRN - 05/22/2018 3:00 PM EST Office visit note for Ebonie Jes Sol. Date of visit 05/22/2018 Reason for visit: Follow-up type I DM in continued excellent control with hypoglycemia unawareness.Also, recent diagnosis of osteoporosis followed by PCP Brief history: Had appointment earlier this afternoon with ALVAREZ ALVARADO. States she has started attendingAA meetings after decompression fractures that she sustained earlier this year r/t a fall. Fingers are painful and swollen. Date of diagnosis of diabetes: 1958 Has hypoglycemia unawareness SBGM: Up to 8 times a day. Reason for higher frequency testing is to avoid severe hypoglycemia. Diabetes regimen: MiniMed 523 pump. She states the pump is out of warrantee. She is deciding whether to upgrade to the Medtronic 670G with the guardian sensor or to change to the T Slim pump and Dex com G6 sensor Basal rates: 12 AM 0.5 3:30.5 11:30.45, 1700=.55 1800=.475 2100.45 Bolus doses insulin to carb at midnight 1-14, at 12:30=1-13, at 18:30=1-14 sensitivity factor 55 target glucose 110-140 active insulin 4 hours Review of systems: Depression and mood: Has been successful with AA meetings to avoid alcohol. 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 Enjoys time with her grandchildren who do not live near her. 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 All 12 systems reviewed and negative except as noted in history. Physical exam: Appearance: She appears in good health. Weight 146 pounds. Blood pressure 127/60. Eyes: No retinopathy with greenlight exam. Neck: No thyromegaly or lymphadenopathy. Heart: Regular rate and rhythm. Lungs are clear to auscultation. Feet: Skin is normal, pulses are normal. Neuro: Normal sensation to 10 G's of pressure Hemoglobin A1c 6.5% Impression and plan: DM type I with hypoglycemia unawareness. She did not find using the enlite sensor helpful since it alarmed too often. She does have some glucose levels in the 50s and sometimes in the 40s. Advised to change the insulin to carb to 1-14 for all 24 hours. She is not certain she will make any changes since she is very happy with her hemoglobin A1c result. Counseled regarding long-term effects of frequent hypoglycemia. Advised to schedule follow-up appointment with experimental mechanic spacecraft. Patient wants to make certain she is doing everything she can to treat the osteoporosis to prevent further fractures in her future. Advised to consider bone builders classes. This was a 38-minute o ffice visit with 27 minutes spent counseling [id number] with patient management glucose levels, reviewing prevention and treatment of hypoglycemia and stressing the importance of taking care of heremotional health. She plans to get a flu vaccine at PCP office later this week Recent Results (from the past 72 hour(s)) LDL Cholesterol, Direct Result Value Ref Range LDL Chol Direct 109 mg/dL Creatinine Result Value Ref Range Creatinine 0.78 0.70 - 1.20 mg/dL eGFR 82 >=60 mL/min/1.73 m?? eGFR 95 >=60 mL/min/1.73 m?? Hemoglobin A1c Result Value Ref Range Hemoglobin A1C 6.5 (H) 4.3 - 5.6 % Est Avg Gluc 140 mg/dL documented in this encounter Plan of Treatment Upcoming Encounters Date Type Department Care Team (Late st Contact Info) Description 06/05/2024 10:15 AM EST Office [place] [address] Namita Bansal MD [facility] [place] [address] documented as of this encounter Goals Goal Patient Goal Type Associated Problems Recent Progress Patient-Stated? Author Exercise 3x per week (30 min per time) Exercise Keila Espinoza CDE documented as of this encounter Results * LDL Cholesterol, Direct (10/31/2018 10:35 AM EDT) LDL Cholesterol, Direct 127 mg/dL [facility] Comment: Lowest Risk: <100 mg/dL Lower Risk: 100-129 mg/dL Borderline High Risk: 130-159 mg/dL High Risk: 160-189 mg/dL Very High Risk: >ib=524 mg/dL Blood specimen (specimen) 10/31/2018 10:35 AM EDT 10/31/2018 10:41 AM EDT Narrative Resulting Agency Comment Spec In Lab Abby E Bilotta FUR CUTTING MACHINE OPERATOR CHEMISTRY ORDERABLE S Performing Organization Address [facility]/ZIP Co de Phone Number [facility] [place] [address] * TSH (10/31/2018 10:35 AM EDT) Thyroid Stimulating Hormone 3.02 0.27 - 4.20 mcIU/mL [facility] Blood specimen (specimen) 10/31/2018 10:35 AM EDT 10/31/2018 10:41 AM EDT Narrative Resulting Agency Comment Spec In Lab Abby E Bilotta FUR CUTTING MACHINE OPERATOR CHEMISTRY ORDERABLE S [facility] [place] [address] * (ABNORMAL) Hemoglobin A1c (10/31/2018 10:35 AM EDT) Hemoglobin A1c 6.7(H) 4.3 - 5.6 % [facility] [...] Mellitus, Diabetes Care 2013; 36: Suppl. 1, S67-84 Estimated Average Glucose 145 mg/dL [facility] Comment: eAG [...] into estimated average glucose values. ??Diabetes Care 2008:31(8):3548-4726. Blood specimen (specimen) 10/31/2018 10:35 AM EDT 10/31/2018 10:41 AM EDT Narrative Resulting Agency Comment Spec In Lab Abby Campbell APRN CHEMISTRY ORDERABLE S [facility] [place] [address] * U Albumin/Cre Ratio (10/31/2018 10:33 AM EDT) Albumin / Creatinin Ratio, Urine 3 0 - 29 mcg/mg Cr [facility] [...] 2, 357? 362 Albumin, Urine 3.5 mg/L [facility] Creatinine, Urine 113 mg/dL [facility] Urine specimen (specimen) 10/31/2018 10:33 AM EDT 10/31/2018 10:37 AM EDT Narrative Resulting Agency Comment Spec In Lab Abby E Napoleona FUR CUTTING MACHINE OPERATOR URINE ORDERABLES [facility] [place] [address] documented in this encounter Visit Diagnoses Diagnosis Diabetes mellitus type 1, uncomplicated Type I (juvenile type) diabetes mellitus without mention of complication, not stated as uncontrolled documented in this encounter Care Teams Manual Arts Teacher Relationship Specialty Start Date End Date Mitchell Yap MD [address] [place] [address] PCP - General 05/19/10 07/17/23 documented as of this encounter
--- OUTSIDE RECORDS SUMMARY | 2024-04-18 13:16 | XMS_ITS | Encounter Summary ---
Author Organization [facility] [place] [address] Care Team Providers Care Comber Setter Name Role Phone Mitchell Yap MD Primary Care Provider [phone] Reason for Visit * Reason Comments Bilateral Hand Pain Left long & Right in dex trigger * Consultation (Routine) - Closed Specialty Diagnoses / Procedures Referred By Malka t Referred To Contact Orthopaedics Diagnoses Right Hand Index Finger, Left Hand Middle Finger, trigger Self mail Laith Diehl MD [facility] [place] [address] Referral ID Status Reason Start Date Expiration Date V isits Requested Visits Authorized [id number] Closed Consult, Test & Treat 07/07/2018 07/07/2019 1 1 Encounter Details Date Type Department Care Team (Late st Contact Info) Description 09/13/2018 1:15 PM EDT Office Visit [place] [address] Laith Diehl MD [facility] [place] [address] Trigger finger, left middle finger; Trigger finger, right index finger Social History Tobacco Use Types Packs/Day [...] Sign Reading Time Taken Comments Blood Pressure 115/59 09/13/2018 1:11 PM EDT Pulse - - Temperature - - Respiratory Rate - - Oxygen Saturation - - Inhaled Oxygen Concentration - - Weight 59 kg (130 lb) 09/13/2018 1:11 PM EDT Height 149.9 cm (4' 11) 09/13/2018 1:11 PM EDT Body Mass Index 26.26 09/13/2018 1:11 PM EDT documented in this encounter Progress Notes * Laith Diehl MD - 09/13/2018 1:15 PM EDT I saw Ebonie Sol with [facility]. She has a left long trigger finger and a right index trigger finger. She wishes to have these treated surgically. She declines the option of steroid injection. I had done her prior trigger finger surgery She is aware that trigger finger releases have potential risks including recurrent triggering, infection, nerve injury, stiffness, thickened scar tissue, swelling, and chronic pain. She wishes to proceed with her left long trigger finger first and schedule the right index finger 2 weeks later. * Montana Lopez PA - 09/13/2018 1:15 PM EDT PATIENT NAME: Ebonie Sol AGE: 63 y.o. MR#: [id number] DATE OF VISIT: 09/13/2018 DATE OF INJURY/ONSET: One year STAFF: Dr. Diehl CHIEF COMPLAINT: Trigger finger of her left long and right index finger HISTORY OF PRESENT ILLNESS: Ms. Sol is a right hand dominant 63 y.o. female who comes into clinic today for evaluation of triggering of her left long and right index finger. This has been occurring over the past year and is awakening her from sleep at night. The left has been more painful and both are locking on a daily basis. She did have her right carpal tunnel released in [place] and her median nerve was cut. She also had her left carpal tunnel release done endoscopically by Dr. Diehl in May 2015 with good results along with A1 jeannette release to her left thumb by Dr. Diehland has not recurrent triggering since. The patient denies any numbness or tingling in either of her hands and is a type I diabetic. Ms. Sol is also going to have cataract surgery in the upcomingmonths. Medications and Allergies were reviewed in eD-[facility] PAST MEDICAL HX: Past Medical History: Diagnosis Date ??? Asthma ??? GERD (gastroesophageal reflux disease) ??? Hypertension ??? Median nerve injury ??? Type 1 diabetes PAST SURGICAL HX: Past Surgical History: Procedure Laterality Date ??? CARPAL TUNNEL RELEASE Right complicated by median nerve injury ??? SECTION x2 ??? PILONIDAL CYST EXCISION ??? PRO INCISE FINGER TENDON SHEATH Left 06/10/2016 TENDON SHEATH INCISION (TRIGGER FINGER) (WRVU 3.11) performed by Laith Diehl MD at [facility] ??? PRO WRIST ARTHROSCOP, RELEASE XVERS LIG Left 06/16/2015 ENDOSCOPY WRIST W/ RELEASE TRANSVERSE CARPAL LIGAMENT performed by Laith Diehl MD at [facility] SOCIAL HX: Social History Occupational History ??? 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 Smoking status: Former Smoker Types: Cigarettes Last attempt to quit: 02/16/1979 Years since quittin.6 ??? Smokeless tobacco: Never Used Substance and Sexual Activity ??? Alcohol use: Yes Comment: 3 drinks/week ??? Drug use: No ??? Sexual activity: Not on file ROS: Pertinent items are noted in HPI. General Health, Prior Treatments, PreExisting Condition, Health Habits, About You 09/07/2018 PROMIS-10 General Health Good PROMIS-10 Quality of Life Good PROMIS-10 Physical Health Good PROMIS-10 Mental Health Good PROMIS-10 Social Activity Good PROMIS-10 Everyday Activities A little PROMIS-10 Pain 6 PROMIS-10 Fatigue Moderate PROMIS-10 Social Roles Good PROMIS-10 Anxious or Depressed Sometimes PROMIS PHYSICAL SCORE (range 16-68) 37.4 PROMIS MENTAL SCORE (range 21-68) 43.5 Treatments Tried Acetaminophen (e.g. Tylenol), Over the counter anti- inflammatory drugs (e.g Advil,Aspirin, Aleve) Alzheimers or dementia No Cirrohosis or liver disease No HIV/AIDS No Pain in more than one joint in legs No Back or neck pain Yes Heart attack No Heart failure No Unclog/bypass leg arteries No Stroke, blood clot, TIA No Asthma Yes Take medication for asthma Yes Emphysema, chronic bronchities, or COPD No Stomach ulcers/peptic ulcer disease No Diabetes Yes Diabetes caused problems with kidneys No Diabetes caused problems with eyes No Poor kidney function No Rheumatic condtions No Cancer No Weight (lbs) 132 Height (feet) 4 feet Height (Inches) 11 BMI 26.65 (Overweight) Ever used tobacco products Yes Tobacco frequency Never WHO - Tobacco Advice 0 (You are at low risk of health and other problems from your current pattern of use.) Ever used alcoholic beverages Yes Alcohol frequency Never WHO - Alcohol Advice 0 (You are at low risk of health and other problems from your current pattern of use.) Live Alone No Marital situation Schooling Some college or 2 - year degree Combined Household Income $35,000 to less than $50,000 # People Supported 2 Micronesian, , No, not Micronesian// Race White Health Literacy Extremely Currently working No Not working because: Other Orthopeadics Associated Material Processing Response 06/27/2015 MCCURDY-RIGHT HAND PAIN 3.09 MCCURDY-LEFT HAND PAIN 2.9 PHYSICAL EXAM: Ms. Sol is a 63 y.o. female who is alert, appears stated age and cooperative. Cardiac- RRR, -M/R/G Pulmonary- CTA bilaterally Inspection: Previous surgical scars are well healed without any evidence of infection. Palpation: She has palpable A1 pulleys to both her left long finger and right index finger that areTTP. ROM/Strength: The patient is able to actively flex and extend all digits with triggering to both her left long finger and right index finger in flexion. Neurovascular: Sensation is markedly diminished along the median nerve root of her right hand. Her sensation and motor function of her median nerve of her left hand is in tact. Also radial and ulnar nerve roots are in tact bilaterally. Her hands are well perfused, distal radial pulse 2+ bilaterally. DIAGNOSTIC STUDIES: Xrays from today were personally reviewed with the patient and demonstrate preserved joint space and no acute fracture or dislocation. ASSESSMENT: Ms. Sol presents with triggering to both her left long and finger and right index finger. We discussed treatment from least most invasive including splinting, cortisone injection and A1 jeannette release. She underwent A1 jeannette release to her left thumb by Dr. Diehl in May 2016with good results. She underwent the more conservative treatment options with her left thumb and wished to proceed with A1 jeannette release of both her left long finger and right index finger. The risks of the procedure including infection bleeding, nerve tendon vessel injury stiffness sensitive scarand recurrence were all addressed. Consent was obtained for both and she would like to proceed withthe left long finger first as it is more painful. She is going to speak with her polystyrene bead molder inregards to her cataract surgery in regards to scheduling. Also her preop history and physical exam was completed at today's visit. PLAN: She will return for follow up after surgery. The patient understands to contact us if they have any other questions or concerns. I saw Ms. Sol with Dr. Diehl who agrees with this plan. The above documentation was completed using [employer] voice recognition software. * Prema Mckee RN - 09/13/2018 1:15 PM EDT Pre op teaching done for trigger finger/thumb release. Patient will flex fingers against orginial dressing to maintain mobility. Patient should remove dressing on day 3 focusing on motion only. No lifting,pulling,pushing,twisting or yanking of operative hand until first hospital check. Post op guidelines reviewed with emphasis on hand elevation specifically with hand above heart,fingers above palm,palm above wrist,wrist above elbow for the first few days. Written material provided.Questions solicited and answered. Patient knows to call with any additional questions or concerns. documented in this encounter Plan of Treatment Upcoming Encounters Date Type Department Care Team (Late st Contact Info) Description 06/05/2024 10:15 AM EST Office Visit [place] [address] Namita Bansal MD [facility] [place] [address] documented as of this encounter Goals Goal Patient Goal Type Associated Problems Recent Progress Patient-Stated? Author Exercise 3x per week (30 min per time) Exercise No Keila Arango CDE documented as of this encounter Procedures Procedure Name Priority Date/Time Associated Diagnosis Comments TENDON SHEATH INCISION (TRIGGER FINGER) Routine 09/13/2018 2:09 PM EDT Trigger finger, left middle finger Trigger finger, right index finger documented in this encounter Visit Diagnoses Diagnosis Trigger finger, left middle finger Trigger finger, right index finger documented in this encounter Care Teams Comber Setter Relationship Specialty Start Date End Date Mitchell Yap MD [address] [place] [id number] PCP - General 05/19/10 07/17/23 documented as of this encounter
--- OUTSIDE RECORDS SUMMARY | 2024-04-18 13:16 | XMS_ITS | Encounter Summary ---
Author Organization [facility] [place] [address] Care Team Providers Care Sales Representative Printing Name Role Phone Mitchell Yap MD Primary Care Provider [phone] Encounter Details Date Type Department Care Team (Late st Contact Info) Description 01/17/2017 Telephone [place] [phone] Jenna Chandler MD [facility] [place] [address] Social History Tobacco Use Types Packs/Day Years [...] encounter Miscellaneous Notes * Telephone Encounter - Abby Hernandez RN - 01/17/2017 1:27 PM EDT Please see refill note. * Telephone Encounter - Abby Hernandez RN - 01/17/2017 10:[address] Chandler Call placed to inquire if she is taking indomethacin 75 mg ER once a day. Patient picked up the indomethacin on 01-13-17, and has been taking it three times a day for her headache, is has completley subsided since Tuesday afternoon. Instructed patient that in - message from Dr. Chandler instructed her to only take one capsule daily. Patient verb understanding, and she took her last capsule this morning. Plan: Forward to Dr. Chandler for review and comment. documented in this encounter Plan of Treatment Upcoming Encounters Date Type Department Care Team (Late st Contact Info) Description 06/05/2024 10:15 AM EST Office Visit [place] [address] Namita Bansal MD [facility] [place] [address] documented as of this encounter Goals Goal Patient Goal Type Associated Problems Recent Progress Patient-Stated? Author Exercise 3x per week (30 min per time) Exercise No Keila Arango CDE documented as of this encounter Visit Diagnoses Not on filedocumented in this encounter Care Teams Sales Representative Printing Relationship Specialty Start Date End Date Mitchell Yap MD [address] [place] [address] PCP - General 05/19/10 07/17/23 documented as of this encounter
--- OUTSIDE RECORDS SUMMARY | 2024-04-18 13:16 | XMS_ITS | Encounter Summary ---
Author Organization [facility] 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 Name Role Phone Mitchell Yap MD Primary Care Provider [phone] Reason for Visit * Reason Comments Cognitive Decline Neuropsychological A ssessment * Psychiatric (Routine) - Closed Specialty Diagnoses / Procedures Referred By Contac t Referred To Contact Psychiatry Diagnoses Memory loss Procedures PRO NEUROPSYCHOLOGICAL TESTING,PER HOUR BY HOUSEHOLD COORDINATOR Jenna Chandler MD [facility] [place] [address] [facility] [address] [place] [address] Referral ID Status Reason Start Date Expiration Date V isits Requested Visits Authorized [id number] Closed Consult, Test & Treat 11/23/2016 11/23/2017 1 1 Encounter Details Date Type Department Care Team (Late st Contact Info) Description 01/13/2017 10:30 AM EDT Office Visit Psychiatry [place] [address] Ela Conde, PhD NEUROPSYCHOLOGY DEPT. 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 She was referred in the contextof subjective concerns regarding cognitive decline. As her history is well known to you, it will beonly briefly reviewed for our files. Please refer to her medical records for additional information. Background information was obtained from Ms. Sol and her (Issa Sol), who participated in the clinical interview with her permission, and from a review of the available medical records. Ms. Sol and her reported that she has been experiencing problems with memory, includingforgetfulness related to conversations and their details, repetitive questioning, and misplacing items. They indicated onset approximately one year ago with worsening of symptoms over time. However, her noted that these symptoms have progressed more quickly in the past four months. Ms. Sol also endorsed difficulty focusing her attention, slowed processing speed, and word finding difficulty. In contrast, medical records indicated that she has experienced cognitive difficulties, including memory problems, for at least 5-6 years. She and her indicated that her cognitive symptoms may be related to her blood sugar levels, which were quite unregulated until recently when she began using an insulin pump. Sensory functioning is remarkable for longstanding decreased smell and tinnitus (right worse than left ear), while motor functioning is significant for balance instability.Functionally, she reported being able to complete basic and instrumental activities of daily livingwithout assistance; however, her indicated that he organizes her medications and helps manage their finances. She continues to drive without difficulty, although her stated that he drives whenever they are together due to concern regarding her cognition. Medical History: Medical history is significant for type I diabetes mellitus (DM), hypertension, asthma, hyper- and hypoglycemia, headaches (managed well with medication), carpal tunnel syndrome, andtrigger thumb. Surgical history is remarkable for a caesarian section, bilateral carpal tunnel release, and trigger finger release. Ms. Sol reported that she was hospitalized for three weeks during childhood due to type I DM related unconsciousness; she denied any residual symptoms or cognitivesequelae. She has had multiple episodes of loss of consciousness due to severe episodes of hypoglycemia, although she is currently treated with an insulin pump and has fewer drastic fluctuations. Records indicate recent laboratory results (TSH, B12, MMA, ESR) were all within normal limits. She denied any history of seizures, although a neurology note (01/10/2017; Jenna Chandler MD) documented concern about reported episodes in which Ms. Sol experienced periods of confusion without being able to recall details of the event, as well as facial grimaces and movements that were noted as possible automatisms. An MRI of the brain without contrast (12/23/2016) was interpreted as unchanged when compared to a previous MRI (07/23/2010) which revealed, ???a few small patchy foci in the left cerebral white matter, nonspecific, but likely to represent sequela of chronic small vessel ischemic ch qasim.?? A recent EEG (12/24/2016) revealed, ???mild [id number] right sided slowing in drowsiness, which could be normal, but the asymmetry could also be due to the apparently greater left sided white matter changes seen on MRI.?? Psychiatric History: Ms. Sol described her current mood as ???variable?? and indicated experiencing frequent episodes of ???short temper?? and increased irritability, which she related to caregiving a close family member; her agreed with this description of her mood. She indicated sleeping about 5-7 hours per night and does experience daytime fatigue. She and her reported that she snores. By her report, she has never had a sleep study. She reported never having received any psychiatric diagnosis, although she participated in psychotherapy over 20 years ago due to a situational stressor. She denied previous or current suicidal ideation, plan, or intent, but due to recent stress, she indicated having ???thoughts of and dying.?? She stated that she has a couple drinks per week with no history of excessive alcohol use resulting in significant problems (e.g., legal, medical, social). She indicated no history of illicit substances use or tobacco use. Family Medical and Psychiatric History: Family history is notable for dementia, breast cancer, diabetes mellitus, hypertension, congestive heart failure, and cardiovascular accident. Developmental, Educational and Occupational History: Ms. Sol reported that to her knowledge hergestation and were uncomplicated, and she reached developmental milestones at appropriate ages. She completed high school and an associate???s degree in nursing. She indicated that she was a good student, and denied any learning or attention problems, or grade retention. 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 She is to her of39 years and has two adult daughters; she reported close and supportive relationships with her family. Psychosocial stressors include caregiving for a family member, who was admitted to a mcc to provide Ms. Sol with respite, although the family member will be returning to her residence soon. Medication Status: Ms. Sol reported that she was taking the following medications at the time of the evaluation: Lisinopril (Prinivil; Zestril) 20mg, multivitamin, cholecalciferol (Vitamin D3) 1000 IU, Excedrin Migraine prn, and ibuprofen pm prn. BEHAVIORAL OBSERVATIONS: Ms. Sol arrived on time for her appointment and was accompanied by her . She was casually dressed and appropriately groomed. She was oriented to person, time, and situation, although she noted the location incorrectly as ???[place].?? She wore corrective lenses throughout the evaluation. Gross motor functions were intact on informal observation. Spontaneous speech was fluent with normal prosody, without evidence of word finding difficulty. Receptive language appeared intact, and she was able to understand test instructions without difficulty. Thought processes were generally linear and coherent, and of normal content. She reported her mood during the interview as ???variable,?? while affect was predominantly euthymic. Notably, at the beginning of the interview and testing she reported slight nervousness, which dissipated throughout the day. She also demonstrated difficulty on a motor task (Grooved Pegboard Test) when using her right (dominant) hand due to her trigger thumb, which likely impacted her speed of completion for the task. Overall, Ms. Sol was cooperative with the interview and testing, appeared motivated to perform to the best of her abilities, and scores on performance validity measures were within expectations. Thus, the present results are judged to be a valid reflection of her current level of cognitive functioning. PROCEDURES ADMINISTERED: Clinical Interview; [employer] [Test of Premorbid Functioning (TOPF) and Word Choice (WCT)]; [place] Naming Test (BNT); Brief Visuospatial Memory Test- Revised (BVMT-R); [place] Verbal Learning Test, Second Edition (CVLT-II); Clock Drawing Test; Comprehension of Complex Ideational Material (from BDAE; [place] Diagnostic Aphasia Examination); Drawing to Command and Copy; Dot Counting Test; Lenka Bear Executive Functioning System (DKEFS, select subtests); Drawings to Copy; Geriatric Anxiety Inventory (GAI); Geriatric Depression Scale (GDS); Grooved Pegboard Test;); Lateral Dominance Examination; Thumb-Finger Sequencing Test; [place] Making Test; David Adult Intelligence Sc naseem - 4th edition (WAIS-IV; selected subtests); David Memory Scale, Fourth Edition (WMS-IV, selected subtests); [place] Card Sorting Test (WCST). Total time spent in testing, interpretation, and report writin hours, 40 minutes TEST RESULTS: Note: Descriptors are based on appropriate normative data and the chart below and are adjusted based on clinical judgment. The terms impaired and ???within normal limits?? are used when a more specific level of functioning cannot be determined. DESCRIPTOR Percentile Rank DESCRIPTOR Percentile Rank Very Superior 98 and above Borderline 2 to 9 Superior 91 to 97 Extremely Low/Impaired 1.9 and below High Average 75 to 90 Mildly Impaired 0.38 to 1.9 Average 25 to 74 Moderately Impaired 0.13 to 0.37 Low Average 10 to 24 Severely Impaired 0.12 and below General Intellectual Functioning: Age-Scaled Score DESCRIPTOR WAIS-IV: GAI 96 Average Verbal Comprehension Index: 98 Average Similarities 10 Average Vocabulary 9 Average Perceptual Reasoning Index: 94 Average Block Design 9 Average Matrix Reasoning 9 Average Working Memory Index: 111 High Average Digit Span 10 Average Arithmetic 14 Superior Standard Score Test of Premorbid Functionin Average Memory: David Memory Scale-IV: Raw Score (scaled score) Logical Memory I 25/50 (10) Average Logical Memory II 19/50 (9) Average Logical Memory Recognition 23/30 Average [place] Verbal Learning Test-II: Raw Score Total Trials 1 to 5 33/80 (5-7-7-7-7) Borderline Short-Delay Free Recall 5/16 Mildly Impaired Short-Delay Cued Recall 4/16 Severely Impaired Long Delay Free Recall 5/16 Moderately Impaired Long Delay Cued Recall 4/16 Severely Impaired Recognition Hits 11/16 Mildly Impaired False Positive Errors 2 Average Discriminability 2 Borderline Forced Choice Recognition 16/16 Within Expectation BVMT-R: Raw Score Total Learning (Trials 1-3) 17/36 (3-6-8) Low Average Delayed Recall 6/12 Low Average Recognition Hits 5/6 Low Average False Positive Errors 0 Within Normal Limits Discriminability 5 Low Average Attention / Executive Function: WAIS-IV Digit Span: Scaled Score (Max. Span) Forward 9 (6) Average Backward 8 (4) Average Sequencing 14 (7) Superior WAIS-IV Codin Average [place] Making Test: Raw Score (T Score) Part A 28 secs., 0 error (52) Average Part B 62 secs., 0 errors (53) Average D-KEFS Verbal Fluency Test: Raw Score (Scaled Score) Letter Total Correct 45 (12) High Average Category Total Correct 39 (10) Average Category Switching Total Correct 15 (12) High Average Category Switching Accuracy 14 (12) High Average [place] Card Sorting Test: Raw Score Categories (trials) 6 (99) Within Normal Limits Perseverative Errors 13 Average Failure to Maintain Set 0 Within Normal Limits Language: Raw Score BDAE Sentence Comprehension: 12/12 Average Confrontation Namin/60 Average Visuospatial/Visuoconstruction: Raw Score Clock Drawin/10 Within Normal Limits Drawings to Command and Copy: Raw Score (Z-Score) Cube 3 (-0.95) Low Average Hexagons 2 (-0.22) Average Sensory-Motor: Grooved Pegboard Test: Raw Score Dominant Hand 115 sec., 1 drop Severely Impaired Non-Dominant Hand 77 sec., 0 drops Average Thumb-Finger Sequencing Test: Raw Score Dominant Hand 6 Low Average Non-Dominant Hand 6 Low Average Self-Report Inventories: Raw Score Geriatric Anxiety Inventory: 10 Elevated Geriatric Depression Scale: 15 Moderate Symptoms REVIEW OF TEST RESULTS: Intellectual Functioning: Overall intellectual functioning, based on a partial WAIS-IV, was estimated to fall within the average range (GAI = 96), with core verbal and core perceptual abilities in the average range. Overall working memory ability was in the high average range; there was some variability in performance within the working memory domain (average to superior ranges). Baseline abilities were estimated to fall in the average range based on a word reading test (TOPF) and demographic characteristics. This suggests that she is currently functioning at a level commensurate with her baseline verbal intellectual abilities. Learning and Memory: Immediate and delayed recall for contextual verbal information (i.e., stories)was in the average range. Recognition memory for the information was in the average range as well. Learning of a 16-item word list over five trials was in the borderline range, with a generally flat learning curve. She was able to independently apply a serial order approach during learning across learning trials (superior range), relative to a semantic organization approach (low average range). Short- and long-delay recall was in the mildly impaired and moderately impaired range, respectively, without benefit from category cues. Recognition discriminability was in the borderline range; she was able to correctly recognize 11/16 words (mildly impaired range) while making two false positive errors (average range). Learning of a display of six geometric figures was in the low average range, with a progressive learning curve. Her delayed recall was in the low average range, with recognition memory also in the low average range; she recalled 5/6 figures (low average range) with no false positive errors. Overall, contextual verbal and visual learning and memory were generally intact, whilenoncontextual verbal learning and memory was below expectation. Attention and Executive Functions: Immediate auditory attention was in the average range for basic repetition of digits. Maintaining and manipulating information in working memory was in the average range for repeating digits backwards and when having to repeat them in sequential order. Performanceon a measure of working memory requiring mental arithmetic fell in the superior range, an area of notable strength. Performance on a timed measure of symbol- digit substitution was in the average range. Timed number sequencing was in the average range without errors. When task demands increased by requiring alternation between letter and number sequencing, her performance remained in the average range with no errors. On a task which required alternating between word categories, performance fell in the high average range for switching accuracy. Verbal and nonverbal abstract reasoning was in theaverage range. On an unstructured problem solving task, 6/6 category sorts were completed (within no rmal limits) and there were few perseverative errors, suggesting intact ability to think flexibly when provided with examiner feedback. Overall, attention and executing functioning abilities were within normal limits, with an area of strength in mental arithmetic. Language: Performance on a task of comprehending nuanced language in brief questions and short stories was in the average range (perfect score). Vocabulary knowledge was in the average range. Expressive language showed word generation to letter and category cues in the high average and average range, respectively. Confrontation naming was in the average range, was without paraphasic errors or perceptual distortions, and benefit from the provision of phonemic cues (3/5 correct). Overall, assessed expressive and receptive language abilities were intact. Visuospatial/Visuoconstruction: Ability to reproduce two dimensional designs using blocks was in the average range. Copy of a display of six geometric figures was intact (11/12). Clock drawing to command was intact, although notable for writing the numbers in time, which caused errors (e.g., she wrote 01:00 for 10:00). Drawing to command and copy were within normal limits. Overall, assessed abilities were intact. Sensory-Motor: On the Grooved Pegboard Test, fine motor dexterity and speed was in the severely impaired range when using her right (dominant) hand, and in the average range when using her left hand.Her right hand score was likely impacted by her trigger thumb; while reported bilateral trigger thumb, only her left hand has been treated at this time. Thumb-finger sequencing was in the low average range bilaterally. Questionnaire Measures: On self-report mood screening measures, Ms. Sol???s pattern of responses indicated a moderate level of symptoms consistent with depression and an elevated level of symptoms consistent with anxiety at the time of the evaluation. She denied suicidal ideation, intent, or plan. This is consistent with her report on interview, and suggests that affective distress is likely to be having a significant impact on her current functioning. SUMMARY AND RECOMMENDATIONS: On the current evaluation, Ms. Sol demonstrated an isolated impairment for retrieval of noncontextual verbal information (i.e., a word list) and weaknesses (borderline range) for acquisition and consolidation of this information. Performance was within normal limits for contextual verbal learning and memory (i.e., story), visual learning and memory, basic attention, working memory, processingspeed, executive functioning, receptive and expressive language, visuospatial abilities, and generally for motor abilities. An area of strength was noted for mental arithmetic. These findings were obtained in the context of estimated baseline verbal intellectual ability in the average range, affective distress, and adequate task persistence and effort. In sum, although the majority of her neurocognitive profile was well within normal limits relative to age-matched peers, she demonstrated difficulty for noncontextual verbal learning and memory. Ms. Sol reported experiencing depression and anxiety symptoms on self-report measures and psychosocial stress during the interview. Affective and psychosocial distress may be accompanied by inefficiencies in learning and memory, attention and concentration, all areas of noted concern. Additionally, neuroimaging findings of chronic small vessel ischemic change and reported nonrestorative sleep and night time snoring may also be impacting her cognitive functioning. Her current profile is not consis tent with any clinical diagnosis at this time, and her functioning may improve with successful resolution of her affective distress, better management of her stress, and better sleep. However, in light of her medical history (i.e., type I DM, severe hyper- and hypoglycemia events, episodes of confusion with possible automatisms), recent EEG findings, and family history of dementia, repeat neuropsychological evaluation in 18-24 months, or sooner if clinical or functional decline is noted, is recommended to determine whether there is a progressive component to her profile. It is important to note that the testing situation is designed to be optimal in terms of providing a relatively quiet and structured environment that is often more ideal than in daily life, and that she may experience greater cognitive problems outside the testing session. The format of the testingenvironment was highly structured and contained little or no distractions, which suggests the benefit of structure and organization in her daily activities to improve her cognitive functioning. Given her current profile, we offer the following recommendations: ??? It is recommended that Ms. Sol consider returning to weekly psychotherapy with a skilled therapist for her depression and anxiety, particularly in light of increased psychosocial stressors and coping struggles. She may also consider consulting with her providers regarding psychotropic medication and their benefits in treating psychiatric symptoms. Continued use of respite, if available, is recommended while she continues to be a caregiver. ??? Ms. Sol may wish to consider referral to a sleep specialist, given her and her ???s report that she snores and her sleep has been nonrestorative. Improvement in her sleep may result insome improvement of cognitive functioning. ??? Ms. Sol demonstrated variable memory performance, although her memory was best when verbal information was presented in a context; therefore, it would be beneficial to present any informationto her in an organized and meaningful way to maximize retention. She is encouraged to write things down and to utilize a notebook to aid in cuing her memory and prompting organization. She may also find using her phone or other electronic device to facilitate memory for appointments or events as beneficial. She may find it helpful to designate permanent locations for important objects (e.g., keys, phone). ??? Given her slowed fine motor ability with her right hand, she may wish to allot extra time to complete tasks. Further, she should prioritize what she needs to do on a given day, and plan to complete the most important or most difficult items when she is feeling her most rested. ??? She is encouraged to continue to pay close attention to lifestyle issues such as regular physical exercise, healthy nutrition, and stress management, as these can contribute to optimal cognitive functioning. Thank you for referring Ms. Sol for neuropsychological evaluation. We will offer to review these results directly with her. If you would like additional information, please do not hesitate to contact us at . Lio Nicole.Antelmo. Ela Conde, Ph.D., ABPP Post-Doctoral Fellow Board Certified in Clinical Neuropsychology Neuropsychology Associate Professor Of Art History, Neuropsychology Program post office manager A postdoctoral fellow in neuropsychology was involved in test administration, interpretation, and report development. The interpretation and integration of pertinent clinical information found in this report was directed and verified by the supervising neuropsychologist/licensed clinical psychologist. documented in this encounter Plan of Treatment Upcoming Encounters Date Type Department Care Team (Late st Contact Info) Description 06/05/2024 10:15 AM EST Office [place] [address] Namita Bansal MD [facility] [place] [address] Scheduled Referrals Name Type Priority Associated Diagnoses Order Schedule Referral to Psychiatry Outpatient Referral Routine Memory loss Ordered: 11/23/2016 documented as of this encounter Goals Goal Patient Goal Type Associated Problems Recent Progress Patient-Stated? 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
--- OUTSIDE RECORDS SUMMARY | 2024-04-18 13:16 | XMS_ITS | Encounter Summary ---
Author Organization [facility] [place] [address] Care Team Providers Care Watch Repairer Apprentice Name Role Phone Mitchell Yap MD Primary Care Provider [phone] Reason for Visit * Reason Onset Date Comments Pre Procedure Call 09/14/2018 Encounter Details Date Type Department Care Team (Late st Contact Info) Description 09/14/2018 Telephone [place] [phone] Laith Diehl MD [facility] [place] [address] Pre Procedure Call Social History Tobacco Use [...] * Telephone Encounter - Chanda Georges - 09/14/2018 4:11 PM EDT I called and left a message for patient to call [phone] directly and schedule surgery with Dr. Diehl. documented in this encounter Plan of Treatment Upcoming Encounters Date Type Department Care Team (Late st Contact Info) Description 06/05/2024 10:15 AM EST Office Visit [place] [address] Namita Bansal MD [facility] [place] [address] documented as of this encounter Goals Goal Patient Goal Type Associated Problems Recent Progress Patient-Stated? Author Exercise 3x per week (30 min per time) Exercise No Keila Arango, CDE documented as of this encounter Visit Diagnoses Not on filedocumented in this encounter Care Teams Watch Repairer Apprentice Relationship Specialty Start Date End Date Mitchell Yap MD [address] [place] [address] PCP - General 05/19/10 07/17/23 documented as of this encounter
--- OUTSIDE RECORDS SUMMARY | 2024-04-18 13:16 | XMS_ITS | Encounter Summary ---
[place] [address] Care Team Providers Care Hydraulics Teacher Name Role Phone Mitchell Yap MD Primary Care Provider [phone] Encounter Details Date Type Department Care Team (Late st Contact Info) Description 06/23/2016 Telephone [place] [phone] Anyi Arthur RN Social History Tobacco Use Types Packs/Day Years Used Date Smoking Tobacco: Former Cigarettes Q uit: 02/16/1979 Smokeless Tobacco: Never Alcohol Use Standard Drinks/Week Comments Yes 0 (1 standard drink = 0.6 oz pur e alcohol) 3/week Sex and Gender Information Value Date Recorded Sex Assigned at Female 11/02/2020 3:40 PM EDT Gender Identity Female 11/02/2020 3:40 PM EDT Sexual Orientation Straight 11/02/2020 3: 40 PM EDT documented as of this encounter Miscellaneous Notes * Telephone Encounter - Luma Conti LD - 06/25/2016 1:53 PM EST Pt needs sensor training. Asked her to check her schedule for 1 hour on Jun 30 at 1pm.Pt is checking with krishna and will call back to let us know. * Telephone Encounter - Anyi Arthur, RN - 06/23/2016 4:18 PM EST Ebonie calls in and left message that she would like to speak with Luma Gallito. Message forwarded to Luma documented in this encounter Plan of Treatment Upcoming Encounters Date Type Department Care Team (Late st Contact Info) Description 06/05/2024 10:15 AM EST Office [place] [address] [facility] [place] [address] documented as of this encounter Goals Goal Patient Goal Type Associated Problems Recent Progress Patient-Stated? Author Exercise 3x per week (30 min per time) Exercise No Keila Arango CDE documented as of this encounter Visit Diagnoses Not on filedocumented in this encounter Care Teams Hydraulics Teacher Relationship Specialty Start Date End Date Mitchell Yap MD [address] [place] [address] PCP - General 05/19/10 07/17/23 documented as of this encounter
--- OUTSIDE RECORDS SUMMARY | 2024-04-18 13:16 | XMS_ITS | Encounter Summary ---
Author Organization [facility] [place] [address] Care Team Providers Care Detailer Name Role Phone Mitchell Yap MD Primary Care Provider [phone] Reason for Referral * Consultation (Routine) - Specialty Diagnoses / Procedures Referred By Contenrique t Referred To Contact Diagnoses Cognitive decline Automatism Jenna Chandler MD [facility] [place] [address] Referral ID Status Reason Start Date Expiration Date V isits Requested Visits Authorized [id number] Consult, Test & Treat 07/13/2017 01/09/2018 1 1 Encounter Details Date Type Department Care Team (Late st Contact Info) Description 07/13/2017 [place] [address] Jenna Chandler MD [facility] [place] [address] Cognitive decline (Primary Dx); Automatism Social History Tobacco Use Types Packs/Day Years [...] 10:15 AM EST Office [place] [address] Namita Bansal MD [facility] [place] [address] Scheduled Referrals Name Type Priority Associated Diagnoses Orde r Schedule Referral to [facility] Outpatient Referral Routine Cognitive decline Automatism Ordered: 07/13/2017 documented as of this encounter Goals Goal Patient Goal Type Associated Problems Recent Progress Patient-Stated? Author Exercise 3x per week (30 min per time) Exercise No Keila Arango, CHRISTIANO documented as of this encounter Visit Diagnoses Diagnosis Cognitive decline- Primary Unspecified persistent mental disorders due to conditions classified elsewhere Automatism Other conditions of brain documented in this encounter Care Teams Detailer Relationship Specialty Start Date End Date Mitchell Yap MD [address] [place] [address] PCP - General 05/19/10 07/17/23 documented as of this encounter
--- OUTSIDE RECORDS SUMMARY | 2024-04-18 13:16 | XMS_ITS | Encounter Summary ---
Author Organization [facility] [place] [address] Care Team Providers Care Groutman Name Role Phone Mitchell Yap MD Primary Care Provider [phone] Encounter Details Date Type Department Care Team (Latest Contact Info) Description 09/13/2018 12:01 PM EDT - 09/13/2018 11:59 PM EDT Hospital Encounter XRay at [address] [place] [address] Laith Diehl MD [facility] [place] [address] Trigger finger, right index finger Discharge Disposition: Home Social History Tobacco Use [...] Start Date End Date Diabetic Supplies, Miscellan. Misc CMN form faxed to [employer] 100 each 12 02/24/2017 Diabetic Supplies, [place]iscellan. [facility] [place] [facility] Medical 100 each 12 01/17/2017 ADVAIR DISKUS 100-50 mcg/dose Disk with Device Inhale 1 puff into the lungs daily. 11/23/2016 Diabetic Supplies, Miscellan. [facility] [place] [facility] for insulin pump supplies 1 each [...] Solution Inject 40-50 Units subcutaneously continuous. Via [employer] Paradigm 523 50 mL 3 01/30/2018 04/03/2019 blood sugar diagnostic strips (ONETOUCH ULTRA TEST) Strip Use as instructed to check blood sugar 8 times daily ( Hypoglycemia unawareness) 800 each 3 01/30/2018 03/05/2019 calcium-vitamin D3 (CALCIUM 600 + D,3,) 600 mg(1,500mg) -400 unit Tablet Take 1 tablet by mouth 2 times daily. 11/03/2020 documented as of this encounter Plan of Treatment Upcoming Encounters Date Type Department Care Team (Late st Contact Info) Description 06/05/2024 10:15 AM EST Office Visit [place] [address] Namita Bansal MD [facility] [place] [address] documented as of this encounter Goals Goal Patient Goal Type Associated Problems Recent Progress Patient-Stated? Author Exercise 3x per week (30 min per time) Exercise No Keila Arango CDE documented as of this encounter Procedures Procedure Name Priority Date/Time Associated Diagnosis Comments XR FINGER(S) MIN 2 VIEWS RIGHT Routine 09/13/2018 12:15 PM EDT Trigger finger, right index finger documented in this encounter Results * XR Fingers Min 2 views Right (Generic) (09/13/2018 12:15 PM EDT) Anatomical Region Laterality Modality Hand Right Digital Radiogra phy Impressions 09/13/2018 4:37 PM EDT No displaced fracture or malalignment. Thank you for letting us participate in the care of this patient. For questions regarding this report, please contact the number below. ? Electronically signed by: Elena Calderon [facility] ([phone]), at 09/13/2018 4:37 PM Narrative 09/13/2018 4:37 PM EDT EXAMINATION: XR FINGERS MIN 2 VIEWS RIGHT (GENERIC) CLINICAL HISTORY: Right index finger trigger TECHNIQUE: 3 views RIGHT finger. PA view the right hand. Oblique and lateral views of the right index finger. COMPARISON: None FINDINGS: Subjectively, there is diffuse osseous mineralization. No displaced fracture or malalignment. No focal soft tissue swelling. Joint spaces are relatively well-preserved. Procedure Note Elena Calderon MD - 09/13/2018 EXAMINATION: XR FINGERS MIN 2 VIEWS RIGHT (GENERIC) CLINICAL HISTORY: Right index finger trigger TECHNIQUE: 3 views RIGHT finger. PA view the right hand. Oblique and lateral views ofthe right index finger. COMPARISON: None FINDINGS: Subjectively, there is diffuse osseous mineralization. No displacedfracture or malalignment. No focal soft tissue swelling. Joint spaces are relatively well-preserved. IMPRESSION No displaced fracture or malalignment. Thank you for letting us participate in the care of this patient. Forquestions regarding this report, please contact the number below. Laith Diehl MD IMG DX ORDERABLES documented in this encounter Visit Diagnoses Diagnosis Trigger finger, right index finger documented in this encounter Care Teams Groutman Relationship Specialty Start Date End Date Mitchell Yap MD [address] [place] [address] PCP - General 05/19/10 07/17/23 documented as of this encounter
--- OUTSIDE RECORDS SUMMARY | 2024-04-18 13:16 | XMS_ITS | Encounter Summary ---
[place] [address] Care Team Providers Care Aerobics Instructor Name Role Phone Mitchell Yap MD Primary Care Provider [phone] Reason for Visit * Reason Comments Diabetes Encounter Details Date Type Department Care Team (Latest Contact Info) Description 11/09/2016 1:30 PM EDT Office Visit [place] [address] Abby Campbell, [facility] [place] [address] Diabetes mellitus type 1, uncomplicated Social History [...] Sign Reading Time Taken Comments Blood Pressure 118/80 11/09/2016 2:16 PM EDT Pulse - - Temperature - - Respiratory Rate - - Oxygen Saturation - - Inhaled Oxygen Concentration - - Weight - - Height - - Body Mass Index - - documented in this encounter Patient Instructions * Patient Instructions* Abby Campbell APRN - 11/09/2016 1:30 PM EDT Call [employer] for pump up-grade and sensor When you get it, then call Luma Conti RD for appointment Only use low alert on sensor. Set at 80 documented in this encounter Progress Notes * Abby Campbell APRN - 11/09/2016 1:30 PM EDT REASON FOR VISIT: Followup type-1 DM now in continued excellent control with hypoglycemia unawareness. BRIEF HISTORY: Had appointment earlier this afternoon with ALVAREZ. DATE OF DIAGNOSIS OF DIABETES: 1957. COMPLICATIONS: Hypoglycemia unawareness. SBGM: Up to 10 times a day. Reason for higher frequency testing is to avoid severe hypoglycemia. She stopped using the Enlite sensor recently because it was alarming too often. DIABETES REGIMEN: MiniMed 523 pump. Basal rates at midnight 0.5; at 3:30 0.525; at 11:00 a.m. 0.45; at 1700 0.55; at 1800 0.475; at 2100 0.45. Insulin to carb at midnight 14, at 12:30 13, at 1800 14. Sensitivity factor 55. Target glucose 110 to 140. REVIEW OF SYSTEMS: Depression and mood: Has given her notice at work and plans to take the summer off. At home is her very supportive and her 97-year-old father. Eyes: No recent vision changes. She has been having headaches more often. No recent chest pain or shortness of breath. No recent GI symptoms. Appetite is okay. Sleep pattern varies. Extremities: Good. PHYSICAL EXAM: Appearance: She appears in excellent health. Weight 151 pounds. She has gained 14 pounds in the past year. Blood pressure 118/80. Eyes: No retinopathy with green light exam. Neck: No thyromegaly or lymphadenopathy. Heart: Regular rate and rhythm. Lungs are clear to auscultation. Feet: Skin is normal. Pulses are normal. Neuro: Normal sensation to 10 Gs of pressure. Hemoglobin A1c 6.9%; previous was 7.0%. IMPRESSION AND PLAN: DM type-1 with hypoglycemia unawareness. Reviewed downloaded glucose results. Some are as low as the 50s and several in the 60s. She plans to resume using the Enlite sensor and will only use the low glucose alarm to avoid hypoglycemia. She always checks glucose levels before driving. She is going to try to be less aggressive with bolus doses to avoid glucose levels below 90 as much as possible. Gave her a copy of lab results from today. Hemoglobin A1c 6.9%, which patient was very pleased about. Advised patient okay to have hemoglobin A1c up to 7.9 with less low glucose levels. Patient plans to contact [employer] and upgrade her pump and sensor when she does receive the upgraded pump and sensor she will call Cammie Conti RD, for appointment to start using the new pump and sensor. Return to Endocrinology for follow-up visit with Dr. Rojas in 6 months. Will check hemoglobin A1c, TSH, and other labs that she is due for. This was a 34-minute office visit with 21 minutes spent counseling [id number] with patient in the management of glucose levels, reviewing prevention and treatment of hypoglycemia, discussing the importance of taking care of her emotional health. Encouraged her to look into relaxing yoga. She plans to spend more time with her grandchildren. Recent Results (from the past 72 hour(s)) Hemoglobin A1c Result Value Ref Range Hemoglobin A1C 6.9 (H) 4.3 - 5.6 % Est Avg Gluc 151 mg/dL LDL Cholesterol, Direct Result Value Ref Range LDL Chol Direct 107 <=190 mg/dL Creatinine Result Value Ref Range Creatinine 0.69 (L) 0.70 - 1.20 mg/dL Estimated GFR >60 >=60 U Albumin/Cre Ratio Result Value Ref Range Alb/Cr Ratio, Random Not Calculated 0 - 29 mcg/mg Cr U Albumin Conc, Random <3.0 mg/L U Creatinine 75 mg/dL documented in this encounter Plan of Treatment Upcoming Encounters Date Type Department Care Team (Late st Contact Info) Description 06/05/2024 10:15 AM EST Office Visit [place] [address] Namita Bansal MD [facility] [place] [address] documented as of this encounter Goals Goal Patient Goal Type Associated Problems Recent Progress Patient-Stated? Author Exercise 3x per week (30 min per time) Exercise No Keila Arango CDE documented as of this encounter Results * TSH (07/08/2017 12:26 PM EST) Thyroid Stimulating Hormone 1.62 0.27 - 4.20 mlU/ML [facility] Blood specimen (specimen) 07/08/2017 12:26 PM EST 07/08/2017 12:30 PM EST Narrative Resulting Agency Comment Spec In Lab Abby Campbell APRN CHEMISTRY ORDERABLE S [facility] [place] [address] * (ABNORMAL) Hemoglobin A1c (07/08/2017 12:26 PM EST) Hemoglobin A1c 7.0(H) 4.3 - 5.6 % [facility] Comment: Reference Range: 4.3 - 5.6% 5.7 - 6.4% - Increased Risk of Developing Diabetes Mellitus >=6.5% - Consistent with diagnosis of Diabetes Mellitus In the absence of hyperglycemia (i.e. plasma glucose > 200 mg/dL) or classic symptoms of hyperglycemia a repeat measurement of HbA1c should be performed on a separate sample to confirm the diagnosis. Diagnosis and Classification of Diabetes Mellitus, Diabetes Care 2013; 36: Suppl. 1, S6774 Estimated Average Glucose 154 mg/dL [facility] Comment: eAG equivalents for [...] into estimated average glucose values. ??Diabetes Care 2008:31(8):5271-6052. Blood specimen (specimen) 07/08/2017 12:26 PM EST 07/08/2017 12:30 PM EST Narrative Resulting Agency Comment Spec In Lab Abby Campbell APRN CHEMISTRY ORDERABLE S Performing Organization Address City/State/[facility] Co de Phone Number [facility] [place] [address] documented in this encounter Visit Diagnoses Diagnosis Diabetes mellitus type 1, uncomplicated Type I (juvenile type) diabetes mellitus without mention of complication, not stated as uncontrolled documented in this encounter Care Teams Aerobics Instructor Relationship Specialty Start Date End Date Mitchell Yap MD [address] [place] [address] PCP - General 05/19/10 07/17/23 documented as of this encounter
--- OUTSIDE RECORDS SUMMARY | 2024-04-18 13:16 | XMS_ITS | Encounter Summary ---
[place] [address] Care Team Providers Care Dye Range Operator Cloth Name Role Phone Mitchell Yap MD Primary Care Provider [phone] Encounter Details Date Type Department Care Team (Late st Contact Info) Description 05/22/2018 2:30 PM EST Office [place] [phone] [place] [address] Diabetes mellitus type 1, uncomplicated; Insulin pump [...] as of this encounter Progress Notes * Luma Curtis LD - 05/22/2018 2:30 PM EST Diabetes and Nutrition Note Assessment Ebonie Sol is a 63 y.o. female with Type 1 diabetes. Pt is on medtronic and enlite. Downlaodedher pump today. Discussed dexcom and tandem as options for her in the future. Discussing ways to keep good control and what options she has when she is ready to upgrade. 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 Pump: Medtronic No charge documented in this encounter Plan of Treatment Upcoming Encounters Date Type Department Care Team (Late st Contact Info) Description 06/05/2024 10:15 AM EST Office [place] [address] Namita Bansal MD [facility] [place] [address] documented as of this encounter Goals Goal [...] status documented in this encounter Care Teams Dye Range Operator Cloth Relationship Specialty Start Date End Date Mitchell Yap MD [address] [place] [address] PCP - General 05/19/10 07/17/23 documented as of this encounter
--- OUTSIDE RECORDS SUMMARY | 2024-04-18 13:16 | XMS_ITS | Encounter Summary ---
[place] [address] Care Team Providers Care Antenna Installer Name Role Phone Mitchell Yap MD Primary Care Provider [phone] Reason for Visit * Reason Onset Date Comments Pump/sensor 12/01/2017 Encounter Details Date Type Department Care Team (Late st Contact Info) Description 12/01/2017 Telephone [place] [phone] Harshil Nunn Pump/sensor Social History Tobacco Use Types Packs/Day [...] encounter Miscellaneous Notes * Telephone Encounter - Harshil Nunn - 12/12/2017 12:05 PM EDT Sent pt an email asking to confirm that she received her pump and CGM or not 12/12/17. * Telephone Encounter - Harshil Nunn - 12/07/2017 5:54 PM EDT Signed, faxed, confirmed 12/07/17. * Telephone Encounter - Harshil Nunn - 12/01/2017 3:26 PM EDT DWO for pump and CGM - 2 forms - sent to Dr. Lizarraga for two signatures 12/01/17 documented in this encounter Plan of Treatment Upcoming Encounters Date Type Department Care Team (Late st Contact Info) Description 06/05/2024 10:15 AM EST Office [place] [address] Namita Bansal MD [facility] [place] [address] documented as of this encounter Goals Goal Patient Goal Type Associated Problems Recent Progress Patient-Stated? Author Exercise 3x per week (30 min per time) Exercise No Keila Arango CDE documented as of this encounter Visit Diagnoses Not on filedocumented in this encounter Care Teams Antenna Installer Relationship Specialty Start Date End Date Mitchell Yap MD [address] [place] [address] PCP - General 05/19/10 07/17/23 documented as of this encounter
--- OUTSIDE RECORDS SUMMARY | 2024-04-18 13:16 | XMS_ITS | Encounter Summary ---
[place] [address] Care Team Providers Care Rotary Drum Tanner Name Role Phone Mitchell Yap MD Primary Care Provider [phone] Encounter Details Date Type Department Care Team (Latest Contact Info) Description 07/08/2017 12:00 PM EST Laboratory Appointment Lab [address] [place] [address] Diabetes mellitus type 1, uncomplicated [...] 10:15 AM EST Office [place] [address] Namita Bansal MD [facility] [place] [address] documented as of this encounter Goals Goal Patient Goal Type Associated Problems Recent Progress Patient-Stated? Author Exercise 3x per week (30 min per time) Exercise Keila Espinoza, CHRISTIANO documented as of this encounter Procedures Procedure Name Priority Date/Time Associated Diagnosis Comments TSH Routine 07/08/2017 12:26 PM EST Diabetes mellitus type 1, uncomplicated HEMOGLOBIN A1C Routine 07/08/2017 12:26 PM EST Diabetes mellitus type 1, uncomplicated documented in this encounter Results * TSH (07/08/2017 12:26 PM EST) Thyroid Stimulating Hormone 1.62 0.27 - 4.20 mlU/ML [facility] Blood specimen (specimen) 07/08/2017 12:26 PM EST 07/08/2017 12:30 PM EST Narrative Resulting Agency Comment Spec In Lab Abby Lulu Adrian AHN CHEMISTRY ORDERABLE S [facility] [place] [address] * (ABNORMAL) Hemoglobin A1c (07/08/2017 12:26 PM [...] Mellitus, Diabetes Care 2013; 36: Suppl. 1, K35-01 Estimated Average Glucose 154 mg/dL [facility] [...] into estimated average glucose values. ??Diabetes Care 2008:31(8):3291-0971. Blood specimen (specimen) 07/08/2017 12:26 PM EST 07/08/2017 12:30 PM EST Narrative Resulting Agency Comment Spec In Lab Abby Campbell APRN CHEMISTRY ORDERABLE S [facility] [place] [address] documented in this encounter Visit Diagnoses Diagnosis Diabetes mellitus type 1, uncomplicated Type I (juvenile type) diabetes mellitus without mention of complication, not stated as uncontrolled documented in this encounter Care Teams Rotary Drum Tanner Relationship Specialty Start Date End Date Mitchell Yap MD [address] [place] [address] PCP - General 05/19/10 07/17/23 documented as of this encounter
--- OUTSIDE RECORDS SUMMARY | 2024-04-18 13:16 | XMS_ITS | Encounter Summary ---
Author Organization [facility] [place] [address] Care Team Providers Care Turbine Technician Name Role Phone Mitchell Yap MD Primary Care Provider [phone] Encounter Details Date Type Department Care Team (Late st Contact Info) Description 01/17/2017 [place] [address] Jenna Chandler MD [facility] [place] [address] Social History Tobacco Use Types Packs/Day Years [...] 10:15 AM EST Office [place] [address] Namita Bansal MD [facility] [place] [address] documented as of this encounter Goals Goal Patient Goal Type Associated Problems Recent Progress Patient-Stated? Author Exercise 3x per week (30 min per time) Exercise No Keila Arango, CDLulu documented as of this encounter Visit Diagnoses Not on filedocumented in this encounter Care Teams Turbine Technician Relationship Specialty Start Date End Date Mitchell Yap MD [address] [place] [address] PCP - General 05/19/10 07/17/23 documented as of this encounter
--- OUTSIDE RECORDS SUMMARY | 2024-04-18 13:16 | XMS_ITS | Encounter Summary ---
[place] [address] Care Team Providers Care Sales Intern Name Role Phone Mitchell Yap MD Primary Care Provider [phone] Reason for Visit * Reason Comments Diabetes Encounter Details Date Type Department Care Team (Late st Contact Info) Description 07/08/2017 1:00 PM EST Office Visit [place] [phone] Luma Curtis, [place] [address] Diabetes mellitus type 1, uncomplicated; Insulin pump in place; Overweight Social History Tobacco Use Types Packs/Day Years [...] Sign Reading Time Taken Comments Blood Pressure 150/82 07/08/2017 12:57 PM EST Pulse 86 07/08/2017 12:57 PM EST Temperature - - Respiratory Rate - - Oxygen Saturation - - Inhaled Oxygen Concentration - - Weight 69 kg (152 lb 3.2 oz) 07/08/2017 12:57 PM EST Height 149.9 cm (4' 11.02) 07/08/2017 12:57 PM EST Body Mass Index 30.72 07/08/2017 12:57 PM EST documented in this encounter Patient Instructions * Patient Instructions* Luma Conti LD - 07/08/2017 1:00 PM EST Call medtronic and ask when your warranty is up When your warranty is up you can get a new model of a pump When you are in warranty you can get the same model to replace a broken pump ~27 units of insulin per day * 3 Plus some spare. Fill only to 100 units in your reservoir. Change the infusion set every 3 days to help you with controlling your BGs Consider prepping salad ingredients all at once and keeping them in respective jars. Chopped onionsin one linda jar, carrots in another etc. Try to get 2 fruits per day Apple sauce - vermont organic is the brand Grapefruit Fruit cups in 100% juice and pour out the juice documented in this encounter Progress Notes * Luma Conti LD - 07/08/2017 1:00 PM EST Images from the original note were not included. Diabetes and Nutritoin Note Goals: Call medtronic and ask when your warranty is up When your warranty is up you can get a new model of a pump When you are in warranty you can get the same model to replace a broken pump ~27 units of insulin per day * 3 Plus some spare. Fill only to 100 units in your reservoir. Change the infusion set every 3 days to help you with controlling your BGs Consider prepping salad ingredients all at once and keeping them in respective jars. Chopped onionsin one linda jar, carrots in another etc. Try to get 2 fruits per day Apple sauce - vermont organic is the brand Fruit cups in 100% juice and pour out the juice Assessment Ebonie Jes NaylorEbenezer is a 62 y.o. female with T1DM in good control, however some hypoglycemia. Discussedthis with pt and Dr. Moralez Also discussed changing infusion set every 3 days and the importance of that. PUMP: Pt is on a Medtronic Pump BP 150/82 Pulse 86 Ht 149.9 cm (4' 11.02) Wt 69 kg (152 lb 3.2 oz) BMI 30.72 kg/m2 Recent Labs 07/08/17 1226 11/09/16 1313 HA1C 7.0* 6.9* Pts dad so she has been recovering from that emotionally but is doing ok Diet Breakfast: 1 clemintine and 1/2 eng muffin with PB and tea Lunch: salad: iceburg lettuce, raw beats, carrots, cucumbers, onions, salami, norwegian cheese Dinner: caserole- hamburger, peas, pasta, tomato sauce, cheese. Hamburgers Moose meat and beef Venison steep tender or chicken breast meat Discussed healthier meal options. 15 mins of this visit spent on MNT documented in this encounter Plan of Treatment Upcoming Encounters Date Type Department Care Team (Late st Contact Info) Description 06/05/2024 10:15 AM EST Office Visit [place] [address] Namita Bansal MD [facility] [place] [address] documented as of this encounter Goals Goal Patient Goal Type Associated Problems Recent Progress Patient-Stated? Author Exercise 3x per week (30 min per time) Exercise No Keila Arango CDE documented as of this encounter Visit Diagnoses Diagnosis Diabetes mellitus type 1, uncomplicated Type I (juvenile type) diabetes mellitus without mention of complication, not stated as uncontrolled Insulin pump in place Insulin pump status Overweight documented in this encounter Care Teams Sales Intern Relationship Specialty Start Date End Date Mitchell Yap MD [address] [place] [address] PCP - General 05/19/10 07/17/23 documented as of this encounter
--- OUTSIDE RECORDS SUMMARY | 2024-04-18 13:16 | XMS_ITS | Encounter Summary ---
Author Organization On License Of [facility] [place] [address] Care Team Providers Care Subject Scientific Research Name Role Phone Mitchell Yap MD Primary Care Provider [phone] Reason for Visit * Auth/Cert Specialty Diagnoses / Procedures Referred By Malka vera Referred To Contact Diagnoses RIGHT INDEX left long trigger finger Procedures PRO INCISE FINGER TENDON SHEATH TENDON SHEATH INCISION (TRIGGER FINGER) (WRVU 3.11) Referral ID Status Reason Start Date Expiration Date Visits Re quested Visits Authorized [id number] 1 1 Encounter Details Date Type Department Care Team (Latest Contact Info) Description 09/26/2018 8:17 AM EDT - 09/26/2018 10:46 AM EDT Hospital Encounter [facility] [place] [address] Jean Diehl MD [facility] [place] [address] Trigger thumb of left hand Discharge Disposition: Home Social [...] 5pm or on a weekend: Call the [facility] flooring machine operator and ask for the physician account liaison hospice covering for your doctor. * Patient Instructions* [...] on them. You can also take an hlmu-jzp-acoeiun stool softener, colace or senna, to facilitate [...] incision or dressings wet. Call your doctor (#[phone]) if: You have a fever > 101.5 or experience chills Increased discharge from the incision Any redness or swelling around the incision Increased pain or change in the pain that is not controlled by your pain medications WHERE TO CALL WITH QUESTIONS [facility] Ask for the resident account liaison hospice for your provider [facility] (7:00am - 5:00pm) Future Appointments Date Time Provider Department Center 10/20/2018 11:00 AM Montana Lopez PA [facility] 3A [facility] 10/31/2018 10:30 AM LAB, THREE L Lab 3L [facility] 10/31/2018 10:30 AM DIABETES, SUPPORT V[facility] End[facility] 10/31/2018 11:30 AM Lin Roajs MD [facility] documented in this encounter Medications at Time of Discharge Medication Sig Dispensed Refills Start Date End Date Diabetic Supplies, Miscellan. [facility] CMN form faxed to [employer] 100 each 12 02/24/2017 Diabetic Supplies, Miscellan. [facility] PWO faxed to [facility] Medical 100 each 12 01/17/2017 ADVAIR DISKUS 100-50 mcg/dose Disk with Device Inhale 1 puff into the lungs daily. 11/23/2016 Diabetic Supplies, Miscellan. [facility] Form faxed to [facility] for insulin pump supplies 1 each [...] Solution Inject 40-50 Units subcutaneously continuous. Via Eventp[employer] Paradigm 523 50 mL 3 01/30/2018 04/03/2019 [...] Diehl MD - 09/26/2018 9:40 AM EDT [facility] Operative Note Patient Name: Ebonie Sol : [id number] MR#: [id number] Case Date: 09/26/2018 Surgeon: Surgeon(s) and Role: [...] A preoperative timeout was performed [facility] Then 1 mL of 2% lidocaine with [...] Operative Note Patient Name: Ebonie Sol : [id number] MR#: [id number] Case Date: 09/26/2018 Surgeon: Surgeon(s) and Role: [...] 10:15 AM EST [place] [address] Namita Bansal MD [facility] [place] [address] documented as of this encounter Goals Goal [...] Diehl MD POINT OF CARE TEST [facility] [place] [address] * POCT Fingerstick Glucose (09/26/2018) Glucose, POC 76 60 - 199 mg/dl Blood specimen (specimen) 09/26/2018 Jean Diehl MD POINT OF CARE TEST [facility] documented in this encounter Visit Diagnoses Diagnosis Trigger thumb of left hand Trigger finger (acquired) documented [...] Given 09/26/2018 9:05 AM EDT 650 mg documented in this encounter Active and [...] Until Tue09/26/18 at 1251, Intra-Operative (Intra-Procedure), Routine 0948 (Given - Provid er: Jean Diehl MD - Comment: Lidocaine 2% mixed with 2 cc 8.4 % sodium bicarb 1 cc total) sodium bicarbonate 8.4 % (1 meq/ml) IV solution (CANCELED) ONCE PRN, Starting on Tue09/26/18 at 0949, Until Tue09/26/18 at 1251, Intra-Operative (Intra-Procedure), Routine 0949 (Given - Provid er: Jean Diehl MD [...] Routine documented in this encounter Care Teams Subject Scientific Research Relationship Specialty Start Date End Date Mitchell Yap MD [address] [place] [address] PCP - General 05/19/10 07/17/23 documented as of this encounter
--- OUTSIDE RECORDS SUMMARY | 2024-04-18 13:16 | XMS_ITS | Encounter Summary ---
[place] [address] Care Team Providers Care Tray Service Worker Name Role Phone Mitchell Yap MD Primary Care Provider [phone] Encounter Details Date Type Department Care Team (Late st Contact Info) Description 09/14/2018 Orders [place] [address] Montana Lopez PA [address] [place] [address] Trigger finger, right index finger Social History [...] 10:15 AM EST Office [place] [address] Namita Bansal MD [facility] DR [place] [address] documented as of this encounter Goals Goal Patient Goal Type Associated Problems Recent Progress Patient-Stated? Author Exercise 3x per week (30 min per time) Exercise No Keila Arango CDE documented as of this encounter Procedures Procedure Name Priority Date/Time Associated Diagnosis Comments TENDON SHEATH INCISION (TRIGGER FINGER) Routine 09/14/2018 9:39 AM EDT Trigger finger, right index finger documented in this encounter Visit Diagnoses Diagnosis Trigger finger, right index finger documented in this encounter Care Teams Tray Service Worker Relationship Specialty Start Date End Date Mitchell Yap MD [address] [address] PCP - General 05/19/10 07/17/23 documented as of this encounter
--- OUTSIDE RECORDS SUMMARY | 2024-04-18 13:16 | XMS_ITS | Encounter Summary ---
Author Organization [facility] [place] [address] Care Team Providers Care Armored Transport Service Manager Name Role Phone Mitchell Yap MD Primary Care Provider [phone] Reason for Visit * Reason Onset Date Comments Medication Refill 01/30/2018 Encounter Details Date Type Department Care Team (Late st Contact Info) Description 01/30/2018 Ref[place] [phone] Lin Rojas MD [facility] [place] [address] Social History Tobacco Use Types Packs/Day Years [...] 10:15 AM EST Office [place] [address] Namita Bansal MD [facility] [place] [address] documented as of this encounter Goals Goal Patient Goal Type Associated Problems Recent Progress Patient-Stated? Author Exercise 3x per week (30 min per time) Exercise No Keila Arango, CDE documented as of this encounter Visit Diagnoses Not on filedocumented in this encounter Care Teams Armored Transport Service Manager Relationship Specialty Start Date End Date Mitchell Yap MD [address] [place] [address] PCP - General 05/19/10 07/17/23 documented as of this encounter
--- OUTSIDE RECORDS SUMMARY | 2024-04-18 13:16 | XMS_ITS | Encounter Summary ---
Author Organization [facility] Address [facility] [place] [address] Care Team Providers Care Geological Engineer Name Role Phone Mitchell Yap MD Primary Care Provider [phone] Encounter Details Date Type Department Care Team (Latest Contact Info) Description 09/13/2018 12:01 PM EDT - 09/13/2018 11:59 PM EDT Hospital Encounter XRay at [address] [place] [address] Laith Diehl MD [facility] [place] [address] Trigger finger, left middle finger Discharge Disposition: Home Social History Tobacco [...] 100 each 12 02/24/2017 Diabetic Supplies, Miscellan. [facility] [place] faxed to [facility] Medical 100 each 12 01/17/2017 ADVAIR DISKUS 100-50 mcg/dose Disk with Device Inhale 1 puff into the lungs daily. 11/23/2016 Diabetic Supplies, Miscellan. [facility] pump supplies 1 each [...] Solution Inject 40-50 Units subcutaneously continuous. Via [employer]lic Paradigm 523 50 mL 3 01/30/2018 04/03/2019 [...] 10:15 AM EST Office [place] [address] Namita Bansal MD [facility] [place] [address] documented as of this encounter Goals Goal Patient Goal Type Associated Problems Recent Progress Patient-Stated? Author Exercise 3x per week (30 min per time) Exercise No Keila Arango CDE documented as of this encounter Procedures Procedure Name Priority Date/Time Associated Diagnosis Comments XR FINGER(S) MIN 2 VIEWS LEFT Routine 09/13/2018 12:15 PM EDT Trigger finger, left middle finger documented in this encounter Results * XR Fingers Min 2 views Left (Generic) (09/13/2018 12:15 PM EDT) Anatomical Region Laterality Modality Hand Left Digital Radiogra phy Impressions 09/13/2018 3:39 PM EDT Diffuse osseous demineralization without acute osseous findings. Thank you for letting us participate in the care of this patient. For questions regarding this report, please contact the number below. ? Narrative 09/13/2018 3:39 PM EDT EXAMINATION: XR FINGERS MIN 2 VIEWS LEFT (GENERIC) CLINICAL HISTORY: left middle trigger finger TECHNIQUE: 3 views LEFT finger COMPARISON: Hand radiograph 05/28/2016 FINDINGS: There is diffuse osseous demineralization. No acute interval change in the appearance of the hand. No fracture or malalignment. Distal radius and ulna are normal. Procedure Note Kim Vogel MD - 09/13/2018 EXAMINATION: XR FINGERS MIN 2 VIEWS LEFT (GENERIC) CLINICAL HISTORY: left middle trigger finger TECHNIQUE: 3 views LEFT finger COMPARISON: Hand radiograph 05/28/2016 FINDINGS: There is diffuse osseous demineralization. No acute interval change inthe appearance of the hand. No fracture or malalignment. Distal radius andulna are normal. IMPRESSION Diffuse osseous demineralization without acute osseous findings. Thank you for letting us participate in the care of this patient. Forquestions regarding this report, please contact the number below. Laith Diehl MD IMG DX ORDERABLES documented in this encounter Visit Diagnoses Diagnosis Trigger finger, left middle finger documented in this encounter Care Teams Geological Engineer Relationship Specialty Start Date End Date Mitchell Yap MD [address] [place] [address] PCP - General 05/19/10 07/17/23 documented as of this encounter
--- OUTSIDE RECORDS SUMMARY | 2024-04-18 13:16 | XMS_ITS | Encounter Summary ---
[place] [address] Care Team Providers Care Inspector Outside Production Name Role Phone Mitchell Yap MD Primary Care Provider [phone] Encounter Details Date Type Department Care Team (Latest Contact Info) Description 11/09/2016 1:00 PM EDT Office [place] [address] Lmua Curtis, [place] [address] Diabetes mellitus type 1, uncomplicated Social History [...] - Inhaled Oxygen Concentration - - Weight 68.5 kg (151 lb) 11/09/2016 1:21 PM EDT Height 152.4 cm (5') 11/09/2016 1:21 PM EDT Body Mass Index 29.49 11/09/2016 1:21 PM EDT documented in this encounter Patient Instructions * Patient Instructions* Luma Conti LD - 11/09/2016 1:00 PM EDT Start to add in exercise to help yourself unwind and get the dog exercise too. 4 days per week 1 fruit per day Continue to eat veggies 4-5x per day Change infusion set every 3 days Call medtronic and se documented in this encounter Progress Notes * Luma Conti LD - 11/09/2016 1:00 PM EDT Images from the original note were not included. Diabetes and Nutrition Note Goals: Start to add in exercise to help yourself unwind and get the dog exercise too. 4 days per week 1 fruit per day Continue to eat veggies 4-5x per day Change infusion set every 3 days Call medtronic and see about your upgrade Assessment: Ebonie Sol is a 61 y.o. female with T1 DM on medtronic pump. Pts pump is close to the warrantybeing up. Today we discussed proper techniques for using the CGM technology. Pt recently quit her job because it was too stressful. Pt is feeling much better already. Pts A1c is in great control- butwe do wonder about the low BGs. Pt isn't changing infusion set every three days. Discussed importance about this and safety. Recent Labs 11/09/16 1313 HA1C 6.9* Ht 152.4 cm (5') Wt 68.5 kg (151 lb) BMI 29.49 kg/m2 No charge documented in this encounter Plan of Treatment Upcoming Encounters Date Type Department Care Team (Late st Contact Info) Description 06/05/2024 10:15 AM EST Office Visit [place] [address] Namita Bansal MD [facility] [place] [address] documented as of this encounter Goals Goal Patient Goal Type Associated Problems Recent Progress Patient-Stated? Author Exercise 3x per week (30 min per time) Exercise No Keila Arango, CDE documented as of this encounter Visit Diagnoses Diagnosis Diabetes mellitus type 1, uncomplicated Type I (juvenile type) diabetes mellitus without mention of complication, not stated as uncontrolled documented in this encounter Care Teams Inspector Outside Production Relationship Specialty Start Date End Date Mitchell Yap MD [address] [place] [address] PCP - General 05/19/10 07/17/23 documented as of this encounter
--- OUTSIDE RECORDS SUMMARY | 2024-04-18 13:16 | XMS_ITS | Encounter Summary ---
[place] [address] Care Team Providers Care Private Watchman Name Role Phone Mitchell Yap MD Primary Care Provider [phone] Encounter Details Date Type Department Care Team (Late st Contact Info) Description 07/12/2018 Notes [place] [phone] Ela Walden LPN Social History Tobacco Use Types Packs/Day Years [...] of this encounter Progress Notes * Ela Walden LPN - 07/12/2018 2:47 PM EST Patient called, and left message, stating that recent office visit notes were needed that stated hypoglycemia unawareness. If they could be faxed to [facility], so that supplies could be sent out. Office notes from 05/22/18 with Abby Campbell faxed as requested to [facility] @ [phone] (Yohan) with confirmation received @ 1445. Also faxed to premium representative, Krishan, of [facility] @ [phone]; with confirmation received @ [phone]. documented in this encounter Plan of Treatment Upcoming Encounters Date Type Department Care Team (Late st Contact Info) Description 06/05/2024 10:15 AM EST Office [place] [address] Namita Bansal MD [facility] [place] [address] documented as of this encounter Goals Goal Patient Goal Type Associated Problems Recent Progress Patient-Stated? Author Exercise 3x per week (30 min per time) Exercise No Keila Arango, CHRISTIANO documented as of this encounter Visit Diagnoses Not on filedocumented in this encounter Care Teams Private Watchman Relationship Specialty Start Date End Date Mitchell Yap MD [address] [place] [address] PCP - General 05/19/10 07/17/23 documented as of this encounter
--- OUTSIDE RECORDS SUMMARY | 2024-04-18 13:16 | XMS_ITS | Encounter Summary ---
[place] [address] Care Team Providers Care Construction Superintendent Name Role Phone Mitchell Yap MD Primary Care Provider [phone] Reason for Visit * Reason Comments Procedure Ambulatory EEG 72 ho ur Encounter Details Date Type Department Care Team (Latest Contact Info) Description 04/11/2017 7:06 AM EDT - 04/11/2017 11:59 PM EDT Hospital Encounter [place] [address] Cognitive decline; Automatism Discharge Disposition: Home Social History Tobacco Use [...] Date End Date Diabetic Supplies, Miscellan. [facility] CMN form faxed to [employer] 100 each 12 02/24/2017 Diabetic Supplies, Miscellan. [facility] PWO faxed to [facility] Medical 100 each 12 01/17/2017 ADVAIR DISKUS 100-50 mcg/dose Disk with Device Inhale 1 puff into the lungs daily. 11/23/2016 Diabetic Supplies, Miscellan. [facility] Form faxed to [facility] for insulin pump supplies 1 each 3 01/05/2016 multivitamin with minerals (THERA-M) 9-0.4 mg Tablet Take 1 tablet by mouth daily. lisinopril (PRINIVIL;ZESTRIL) 20 mg Tablet Take 1 tablet by mouth daily. 30 tablet 09/25/2014 indomethacin (INDOCIN SR) 75 mg Capsule, Sustained Release Take 1 capsule by mouth 2 times daily (with meals). 1 additional capsule today, then 1caps PO BID Thursday 01/18 and on 01/19. 8 capsule 01/17/2017 07/08/2017 omeprazole 20 mg Tablet, Delayed Release (E.C.) Take 1 tablet by mouth daily. 30 tablet 01/10/2017 07/08/2017 insulin lispro (HUMALOG) Solution Inject 40-50 Units subcutaneously continuous. 40-50 units continuous via pump, SQ, continuous 50 mL 3 11/09/2016 01/30/2018 blood sugar diagnostic strips (ONETOUCH ULTRA TEST) Strip 1 each by Other route See Admin Instructions. check blood sugar 8x/daily Hypoglycemia unawareness 800 each 3 11/09/2016 01/30/2018 cholecalciferol, Vitamin D3, 1,000 unit Capsule Take 1,000 Units by mouth daily. 05/22/2018 documented as of this encounter Procedure Notes * Dionte Adams MD - 04/11/2017 7:03 AM EDTAssociated Order(s): EEG, EXTENDED Procedure(s): EEG, EXTENDED MONITORING; UP TO ONE HOUR PRFM Pre-Procedure Diagnose(s): Cognitive decline; Automatism [facility] Department of Neurology 72 hour Ambulatory EEG Report Name of the Patient: Ebonie Sol Date of : 1955 Date of Service: 04/11/2017 Referring physician: Dr. Jenna Chandler BRIEF HISTORY: Ebonie Sol is a 62 y.o. year old patient with question of seizures. MEDICATIONS: Current Outpatient Prescriptions Medication Sig Dispense Refill ??? Diabetic Supplies, Miscellan. [facility] CMN form faxed to [employer] 100 each 12 ??? Diabetic Supplies, Miscellan. [facility] PWO faxed to [facility] Medical 100 each 12 ??? indomethacin (INDOCIN SR) 75 mg Capsule, Sustained Release Take 1 capsule by mouth 2 times daily (with meals). 1 additional capsule today, then 1caps PO BID Thursday 01/18 and on 01/19. 8 capsule 0 ??? ADVAIR DISKUS 100-50 mcg/dose Disk with Device Inhale 1 puff into the lungs daily. ??? omeprazole 20 mg Tablet, Delayed Release (E.C.) Take 1 tablet by mouth daily. 30 tablet 0 ??? insulin lispro (HUMALOG) Solution Inject 40-50 Units subcutaneously continuous. 40-50 units continuous via pump, SQ, continuous 50 mL 3 ??? blood sugar diagnostic strips (OptoNovaTOUCH ULTRA TEST) Strip 1 each by Other route See Admin Instructions. check blood sugar 8x/daily Hypoglycemia unawareness 800 each 3 ??? cholecalciferol, Vitamin D3, 1,000 unit Capsule Take 1,000 Units by mouth daily. ??? Diabetic Supplies, Miscellan. [facility] Form faxed to [facility] diabetes for insulin pump supplies 1 each 3 ??? multivitamin with minerals (THERA-M) 9-0.4 mg Tablet Take 1 tablet by mouth daily. ??? lisinopril (PRINIVIL;ZESTRIL) 20 mg Tablet Take 1 tablet by mouth daily. 30 tablet No current facility-administered medications for this encounter. METHODS: A 21 channel digitized electroencephalogram was performed in the [facility] Clinical Neurophysiology Laboratory. The 10/20 international system of electrode placement was used and bipolar and referential electrode montages were recorded. In addition to EEG the patient was monitored for EKGand lateral/vertical eye movements. Video was recorded during the session. The duration of the recording was 72 hours. RAG WASHER'S REPORT: Performed by: Mago Patient was not sleep deprived. Sleep was attained. Photic stimulation was performed. Hyperventilation was performed. Effort was was adequate. Movement and other artifact was not significant. Comments: Cooperative. Interpreting Physician: Dr. Adams Fellow: Moira Ashton DO ELECTROENCEPHALOGRAPHER'S REPORT: Background During the awake state with the eyes closed the background consisted of a normal amplitude, 10 Hz posterior reactive rhythm that attenuated appropriately with eye opening. Beta activity was distributed diffusely with an anterior predominance. There was a normal anterior-posterior voltage gradient. With eye opening the background activity changed to a low voltage mixture of alpha, beta, and occasional theta range frequencies. There were no significant asymmetries of background activity noted. Sleep Stage II/III sleep was obtained and consisted of symmetrical sleep spindles, vertex sharp waves, and diffuse delta slowing. Hyperventilation Hyperventilation was not performed. Photic Stimulation Photic stimulation using a step-oconnor increase in photic frequency varying from 1-21 Hertz resulted in bilateral driving responses at 7- 15 Hertz but no appearance of abnormal activity. Abnormal Interictal EEG Activity None Clinical Events/Push-button None EKG EKG revealed normal sinus rhythm. PRIOR EE12/24/2016 This EEG is within normal limits during the awake and drowsy state as well as during the activation procedures of hyperventilation and photic stimulation. The mild odni-jxnhmhi-gwqn right sided slowing in drowsiness could be normal, but the asymmetry could also due to the apparently greater left sided white matter changes seen on MRI. ?? No epileptiform discharges, clinical or subclinical seizures were captured. INTERPRETATION: This long-term ambulatory EEG is normal during the awake and sleep states as well as during the activation procedures of hyperventilation and photic stimulation. There were no push button events during this recording. There were no epileptiform abnormalities seen. CLINICAL CORRELATION: Normal EEG. A normal EEG does not exclude a diagnosis of epilepsy. Moira Ashton DO Clinical Neurophysiology Fellow #[id number] 04/11/2017 1:54 PM. CC: MD Ramesh Martell Aleksandra MD I reviewed the EEG and I agree with the interpretation as written. Dionte Adams MD documented in this encounter Plan of Treatment Upcoming Encounters Date Type Department Care Team (Late st Contact Info) Description 06/05/2024 10:15 AM EST Office Visit [place] [address] Namita Bansal MD [facility] [place] [address] documented as of this encounter Goals Goal Patient Goal Type Associated Problems Recent Progress Patient-Stated? Author Exercise 3x per week (30 min per time) Exercise No Keila Arango CDE documented as of this encounter Procedures Procedure Name Priority Date/Time Associated Diagnosis Comments EEG, EXTENDED MONITORING; UP TO ONE HOUR PRFM Routine 04/13/2017 10:37 AM EDT Cognitive decline Automatism documented in this encounter Results * EEG, EXTENDED MONITORING; UP TO ONE HOUR PRFM (04/13/2017 10:37 AM EDT) Narrative Dionte Adams MD - 04/13/2017 10:37 AM EDT Dionte Adams MD ? 04/13/2017 10:37 AM [facility] Department of Neurology 72 hour Ambulatory EEG Report Name of the Patient: ??Ebonie Sol Date of : ?1955 Date of Service: ?04/11/2017 Referring physician: ?Dr. Jenna Chandler BRIEF HISTORY: Ebonie Sol is a 62 y.o. year old patient with question of seizures. MEDICATIONS: Current Outpatient Prescriptions Medication Sig Dispense Refill ? ? Diabetic Supplies, Miscellan. [facility] CMN form faxed to [employer] 100 each 12 ? ? Diabetic Supplies, Miscellan. [facility] PWO faxed to [facility] Medical 100 each 12 ? ? indomethacin (INDOCIN SR) 75 mg Capsule, Sustained Release Take 1 capsule by mouth 2 times daily (with meals). 1 additional capsule today, then 1caps PO BID Thursday 01/18 and on 01/19. 8 capsule 0 ? ? ADVAIR DISKUS 100-50 mcg/dose Disk with Device Inhale 1 puff into the lungs daily. ? omeprazole 20 mg Tablet, Delayed Release (E.C.) Take 1 tablet by mouth daily. 30 tablet 0 ? ? insulin lispro (HUMALOG) Solution Inject 40-50 Units subcutaneously continuous. 40-50 ??units continuous via pump, SQ, continuous 50 mL 3 ? ? blood sugar diagnostic strips (AdvanovaUCH ULTRA TEST) Strip 1 each by Other route See Admin Instructions. check blood sugar 8x/daily ??Hypoglycemia unawareness 800 each 3 ? ? cholecalciferol, Vitamin D3, 1,000 unit Capsule Take 1,000 Units by mouth daily. ? [facility], [facility]an[facility] for insulin pump supplies 1 each 3 ? ? multivitamin with minerals (THERA-M) 9-0.4 mg Tablet Take 1 tablet by mouth daily. ? lisinopril (PRINIVIL;ZESTRIL) 20 mg Tablet Take 1 tablet by mouth daily. 30 tablet ?? No current facility-administered medications for this encounter. ?? METHODS: A 21 channel digitized electroencephalogram was performed in the [facility] Clinical Neurophysiology Laboratory. The 10/20 international system of electrode placement was used and bipolar and referential electrode montages were recorded. ??In addition to EEG the patient was monitored for EKG and lateral/vertical eye movements. Video was recorded during the session. The duration of the recording was 72 hours. RAG WASHER'S REPORT: Performed by: Mago Patient was not sleep deprived. Sleep was attained. Photic stimulation was performed. Hyperventilation was performed. Effort was was adequate. Movement and other artifact was not significant. Comments: Cooperative. Interpreting Physician: Dr. Adams Fellow: Moira Ashton DO ELECTROENCEPHALOGRAPHER'S REPORT: Background During the awake state with the eyes closed the background consisted of a normal amplitude, 10 Hz posterior reactive rhythm that attenuated appropriately with eye opening. Beta activity was distributed diffusely with an anterior predominance. There was a normal anterior-posterior voltage gradient. With eye opening the background activity changed to a low voltage mixture of alpha, beta, and occasional theta range frequencies. There were no significant asymmetries of background activity noted. Sleep Stage II/III sleep was obtained and consisted of symmetrical sleep spindles, vertex sharp waves, and diffuse delta slowing. Hyperventilation Hyperventilation was not performed. Photic Stimulation Photic stimulation using a step-oconnor increase in photic frequency varying from 1-21 Hertz resulted in bilateral driving responses at 7- 15 Hertz but no appearance of abnormal activity. Abnormal Interictal EEG Activity None Clinical Events/Push-button None EKG EKG revealed normal sinus rhythm. PRIOR EE12/24/2016 This EEG is within normal limits during the awake and drowsy state as well as during the activation procedures of hyperventilation and photic stimulation. The mild wizb-vfxtfrx-ikue right sided slowing in drowsiness could be normal, but the asymmetry could also due to the apparently greater left sided white matter changes seen on MRI. ?? No epileptiform discharges, clinical or subclinical seizures were captured. INTERPRETATION: This long-term ambulatory EEG is normal during the awake and sleep states as well as during the activation procedures of hyperventilation and photic stimulation. There were no push button events during this recording. There were no epileptiform abnormalities seen. CLINICAL CORRELATION: Normal EEG. A normal EEG does not exclude a diagnosis of epilepsy. Moira Ashton DO Clinical Neurophysiology Fellow #[id number] 04/11/2017 1:54 PM. CC: MD Ramesh Martell Aleksandra MD __ I reviewed the EEG and I agree with the interpretation as written. Dionte Adams MD Jenna Chandler MD NEUROLOGY ORDERABL ES documented in this encounter Visit Diagnoses Diagnosis Cognitive decline Unspecified persistent mental disorders due to conditions classified elsewhere Automatism Other conditions of brain documented in this encounter Care Teams Construction Superintendent Relationship Specialty Start Date End Date Mitchell Yap MD [address] [place] [address] PCP - General 05/19/10 07/17/23 documented as of this encounter
--- OUTSIDE RECORDS SUMMARY | 2024-04-18 13:16 | XMS_ITS | Encounter Summary ---
Author Organization [facility] [place] [address] Care Team Providers Care Flight Simulator Teacher Name Role Phone Mitchell Yap MD Primary Care Provider [phone] Reason for Visit * Reason Onset Date Comments Medication Refill 01/17/2017 Encounter Details Date Type Department Care Team (Late st Contact Info) Description 01/17/2017 [place] [phone] Jessica Garcia LNA Social History Tobacco Use Types Packs/Day Years [...] 10:15 AM EST Office [place] [phone] Namita Bansal MD [facility] [place] [address] documented as of this encounter Goals Goal Patient Goal Type Associated Problems Recent Progress Patient-Stated? Author Exercise 3x per week (30 min per time) Exercise No Keila Arango, CDE documented as of this encounter Visit Diagnoses Not on filedocumented in this encounter Care Teams Flight Simulator Teacher Relationship Specialty Start Date End Date Mitchell Yap MD [address] [place] [address] PCP - General 05/19/10 07/17/23 documented as of this encounter
--- OUTSIDE RECORDS SUMMARY | 2024-04-18 13:16 | XMS_ITS | Encounter Summary ---
Author Organization [facility] [place] [address] Care Team Providers Care Service Provider Name Role Phone Mitchell Yap MD Primary Care Provider [phone] Encounter Details Date Type Department Care Team (Late st Contact Info) Description 06/14/2016 Telephone [place] [address] [place] [address] Social History Tobacco Use Types Packs/Day Years [...] Telephone Encounter - Luma Conti LD - 06/14/2016 1:54 PM EST Pt doesn't have a smart phone so the G4 is her only option. documented in this encounter Plan of Treatment Upcoming Encounters Date Type Department Care Team (Late st Contact Info) Description 06/05/2024 10:15 AM EST Office Visit [place] [address] Namita Bansal MD [facility] [place] [address] documented as of this encounter Goals Goal Patient Goal Type Associated Problems Recent Progress Patient-Stated? Author Exercise 3x per week (30 min per time) Exercise No Keila Arango, CHRISTIANO documented as of this encounter Visit Diagnoses Not on filedocumented in this encounter Care Teams Service Provider Relationship Specialty Start Date End Date Mitchell Yap MD [address] [place] [address] PCP - General 05/19/10 07/17/23 documented as of this encounter
--- OUTSIDE RECORDS SUMMARY | 2024-04-18 13:16 | XMS_ITS | Encounter Summary ---
Author Organization [facility] [place] [address] Care Team Providers Care Appeals Manager Name Role Phone Mitchell Yap MD Primary Care Provider Reason for Referral * Diagnostic Test (Routine) - Closed Specialty Diagnoses / Procedures Referred By Malka vera Referred To Contact Radiology Diagnoses Memory loss Procedures MRI Brain wo Contrast Jenna Chandler MD [facility] [place] [address] [place] [address] Referral ID Status Reason Start Date Expiration Date V isits Requested Visits Authorized [id number] Closed Specialty Service Requested 12/22/2016 02/19/2017 1 1 Reason for Visit * Diagnostic Test (Routine) - Closed Specialty Diagnoses / Procedures Referred By Malka vera Referred To Contact Radiology Diagnoses Memory loss Procedures MRI Brain wo Contrast Jenna Chandler MD [facility] [place] [address] [place] [address] Referral ID Status Reason Start Date Expiration Date V isits Requested Visits Authorized [id number] Closed Specialty Service Requested 12/22/2016 02/19/2017 1 1 Encounter Details Date Type Department Care Team (Late st Contact Info) Description 12/23/2016 11:41 AM EDT - 12/23/2016 12:52 PM EDT Hospital Encounter MRI at [facility] [place] [address] Jenna Chandler MD [facility] [place] [address] Memory loss Discharge Disposition: Home Social History Tobacco Use [...] Sig Dispensed Refills Start Date End Date ADVAIR DISKUS 100-50 mcg/dose Disk with Device Inhale 1 puff into the lungs daily. 11/23/2016 Diabetic Supplies, Miscellan. [facility] Form faxed to [facility] for insulin pump supplies 1 each 3 01/05/2016 multivitamin with minerals (THERA-M) 9-0.4 mg Tablet Take 1 tablet by mouth daily. lisinopril (PRINIVIL;ZESTRIL) 20 mg Tablet Take 1 tablet by mouth daily. 30 tablet 09/25/2014 insulin lispro (HUMALOG) Solution Inject 40-50 Units subcutaneously continuous. 40-50 units continuous via pump, SQ, continuous 50 mL 3 11/09/2016 01/30/2018 blood sugar diagnostic strips (ONETOUCH ULTRA TEST) Strip 1 each by Other route See Admin Instructions. check blood sugar 8x/daily Hypoglycemia unawareness 800 each 3 11/09/2016 01/30/2018 Diabetic Supplies, Miscellan. [facility] each 12 06/14/2016 01/17/2017 cholecalciferol, Vitamin D3, 1,000 unit Capsule Take 1,000 Units by mouth daily. 05/22/2018 documented as of this encounter Plan of Treatment Upcoming Encounters Date Type Department Care Team (Late st Contact Info) Description 06/05/2024 10:15 AM EST Office Visit Endocrinology at [facility] [place] [address] Namita Bansal MD [facility] [place] [address] documented as of this encounter Goals Goal Patient Goal Type Associated Problems Recent Progress Patient-Stated? Author Exercise 3x per week (30 min per time) Exercise No Keila Arango CDE documented as of this encounter Procedures Procedure Name Priority Date/Time Associated Diagnosis Comments MRI BRAIN WO CONTRAST Routine 12/23/2016 12:42 PM EDT Memory loss documented in this encounter Results * MRI Brain wo Contrast (12/23/2016 12:42 PM EDT) Anatomical Region Laterality Modality Head Magnetic Resonan ce Impressions 12/23/2016 2:16 PM EDT No acute abnormality. No change in the appearance of the brain from 2010. Atelectatic right maxillary sinus. I have personally reviewed the image(s) and the residents interpretation and agree with the findings, Humble Holland at 12/23/2016 2:16 PM Narrative 12/23/2016 2:16 PM EDT EXAMINATION: MRI BRAIN WO CONTRAST CLINICAL HISTORY: memory loss, type 1 DM, eval for hippocampal changes, white matter disease. TECHNIQUE: MRI of the brain performed without contrast. COMPARISON: Brain MRI from July 23, 2010. FINDINGS: No change in brain parenchymal signal with a few, scattered foci of T2 signal alteration in the left cerebral hemisphere. No new site of signal alteration. No restricted diffusion. No mass. The ventricles are normal in size and morphology. The basal cisterns and foramen magnum are widely patent. There is no focal or geographic pattern of volume loss, specifically there does not appear to be mesial temporal disproportionate atrophy. The orbits and their contents are normal. The right maxillary sinus is fluid-filled and atelectatic. The major intracranial flow voids are present. Procedure Note Humble Holland MD - 12/23/2016 EXAMINATION: MRI BRAIN WO CONTRAST CLINICAL HISTORY: memory loss, type 1 DM, eval for hippocampal changes,white matter disease. TECHNIQUE: MRI of the brain performed without contrast. COMPARISON: Brain MRI from July 23, 2010. FINDINGS: No change in brain parenchymal signal with a few, scattered foci of [id number] alteration in the left cerebral hemisphere. No new site of signalalteration. No restricted diffusion. No mass. The ventricles are normal in size andmorphology. The basal cisterns and foramen magnum are widely patent. There is no focalor geographic pattern of volume loss, specifically there does not appear castro mesial temporal disproportionate atrophy. The orbits and their contents are normal. The right maxillary sinus is fluid-filled and atelectatic. The major intracranial flow voids are present. IMPRESSION No acute abnormality. No change in the appearance of the brain [id number]. Atelectatic right maxillary sinus. I have personally reviewed the image(s) and the residents interpretationand agree with the findings, Humble Holland at 12/23/2016 2:16 PM Jenna Chandler MD IMG MRI ORDERABLES documented in this encounter Visit Diagnoses Diagnosis Memory loss documented in this encounter Care Teams Appeals Manager Relationship Specialty Start Date End Date Mitchell Yap MD [address] [place] [id number] PCP - General 05/19/10 07/17/23 documented as of this encounter
--- OUTSIDE RECORDS SUMMARY | 2024-04-18 13:16 | XMS_ITS | Encounter Summary ---
Author Organization [facility] [place] [address] Care Team Providers Care Real Time Operator Name Role Phone Mitchell Yap MD Primary Care Provider [phone] Reason for Visit * Reason Comments Follow Up Surgery A1 jeannette release L thumb DOS 06/10/16 Encounter Details Date Type Department Care Team (Late st Contact Info) Description 06/30/2016 3:10 PM EST Office [place] [address] Laith Diehl MD [facility] [place] [address] Trigger thumb of left hand Social History Tobacco Use [...] Sign Reading Time Taken Comments Blood Pressure 143/67 06/30/2016 3:12 PM EST Pulse 73 06/30/2016 3:12 PM EST Temperature - - Respiratory Rate - - Oxygen Saturation - - Inhaled Oxygen Concentration - - Weight 64.4 kg (142 lb) 06/30/2016 3:12 PM EST v erbal Height 152.4 cm (5') 06/30/2016 3:12 PM EST verb al Body Mass Index 27.73 06/30/2016 3:12 PM EST documented in this encounter Progress Notes * Laith Diehl MD - 06/30/2016 3:10 PM EST Ebonie Sol returns. She is over 2 weeks following A1 jeannette release of her left thumb. Surgery was done on 06/10/16. Her incision is well healed. Sensation is intact. She has good range of motion without triggering. Sutures were removed and Steri-Strip was applied. She will progress use of her hand as tolerated. I will see her for this in the future on a p.r.n. basis. She was instructed to do scar massage as needed. documented in this encounter Plan of Treatment Upcoming Encounters Date Type Department Care Team (Late st Contact Info) Description 06/05/2024 10:15 AM EST Office [place] [address] Namita Bansal MD [facility] [place] [address] documented as of this encounter Goals Goal Patient Goal Type Associated Problems Recent Progress Patient-Stated? Author Exercise 3x per week (30 min per time) Exercise No Keila Arango CDE documented as of this encounter Visit Diagnoses Diagnosis Trigger thumb of left hand Trigger finger (acquired) documented in this encounter Care Teams Real Time Operator Relationship Specialty Start Date End Date Mitchell Yap MD [address] [place] [address] PCP - General 05/19/10 07/17/23 documented as of this encounter
--- OUTSIDE RECORDS SUMMARY | 2024-04-18 13:16 | XMS_ITS | Encounter Summary ---
Author Organization [facility] [place] [address] Care Team Providers Care Pay Station Attendant Name Role Phone Mitchell Yap MD Primary Care Provider [phone] Encounter Details Date Type Department Care Team (Late st Contact Info) Description 06/30/2016 Telephone [place] [address] [place] [address] Social History Tobacco Use Types Packs/Day Years [...] Telephone Encounter - Luma Conti LD - 06/30/2016 4:33 PM EST Called pts home number- don't have cell to check in. Pts answered. Checking in on her high bg. said he would call her and call us back if he needed to. [facility] documented in this encounter Plan of Treatment Upcoming Encounters Date Type Department Care Team (Late st Contact Info) Description 06/05/2024 10:15 AM EST Office Visit [place] [address] Namita Bansal MD [facility] [place] [address] documented as of this encounter Goals Goal Patient Goal Type Associated Problems Recent Progress Patient-Stated? Author Exercise 3x per week (30 min per time) Exercise No eKila Arango, CHRISTIANO documented as of this encounter Visit Diagnoses Not on filedocumented in this encounter Care Teams Pay Station Attendant Relationship Specialty Start Date End Date Mitchell Yap MD [address] [place] [address] PCP - General 05/19/10 07/17/23 documented as of this encounter
--- OUTSIDE RECORDS SUMMARY | 2024-04-18 13:16 | XMS_ITS | Encounter Summary ---
Author Organization [facility] [place] [address] Care Team Providers Care Line Appliance Assembler Name Role Phone Mitchell Yap MD Primary Care Provider [phone] Reason for Visit * Reason Onset Date Comments Pump/sensor 02/20/2018 Encounter Details Date Type Department Care Team (Late st Contact Info) Description 02/20/2018 Telephone [place] [id number] [place] [address] Pump/sensor Social History Tobacco Use Types Packs/Day [...] Miscellaneous Notes * Telephone Encounter - Luma Curtis LD - 02/21/2018 4:04 PM EDT Fax confirmed. * Telephone Encounter - Luma Curtis LD - 02/20/2018 7:18 PM EDT [facility] paper work filled out for physician order for insulin pump therapy and diabetes testing. Dr. Rojas will sign then I will fax. documented in this encounter Plan of Treatment Upcoming Encounters Date Type Department Care Team (Late st Contact Info) Description 06/05/2024 10:15 AM EST Office [place] [address] Namita Bansal MD [facility] [place] [address] documented as of this encounter Goals Goal Patient Goal Type Associated Problems Recent Progress Patient-Stated? Author Exercise 3x per week (30 min per time) Exercise No Keila Arango, CHRISTIANO documented as of this encounter Visit Diagnoses Not on filedocumented in this encounter Care Teams Line Appliance Assembler Relationship Specialty Start Date End Date Mitchell Yap MD [address] [place] [address] PCP - General 05/19/10 07/17/23 documented as of this encounter
--- OUTSIDE RECORDS SUMMARY | 2024-04-18 13:16 | XMS_ITS | Encounter Summary ---
Author Organization [facility] [place] [address] Care Team Providers Care Roof Bolter Operator Name Role Phone Mitchell Yap MD Primary Care Provider [phone] Reason for Referral * Psychiatric (Routine) - Closed Specialty Diagnoses / Procedures Referred By Malka vera Referred To Contact Psychiatry Diagnoses Memory loss Procedures PRO NEUROPSYCHOLOGICAL TESTING,PER HOUR BY DATA ANALYSIS ASSISTANT Jenna Chandler MD [facility] [place] [address] [facility] Psych Neuro [address] [place] [address] Referral ID Status Reason Start Date Expiration Date V isits Requested Visits Authorized [id number] Closed Consult, Test & Treat 11/23/2016 11/23/2017 1 1 * Diagnostic Test (Routine) - Closed Specialty Diagnoses / Procedures Referred By Malka vera Referred To Contact Radiology Diagnoses Memory loss Procedures MRI Brain wo Contrast Jenna Chandler MD [facility] [place] [address] [facility] [place] [address] Referral ID Status Reason Start Date Expiration Date V isits Requested Visits Authorized [id number] Closed Specialty Service Requested 12/22/2016 02/19/2017 1 1 Reason for Visit * Consultation (Routine) - Closed Specialty Diagnoses / Procedures Referred By Contac t Referred To Contact Neurology Diagnoses Short term memory impairment, type 1 DM with frequent episodes of hypoglycemia Mitchell Yap MD [address] [place] [address] [facility] Neurology [address] [place] [id number] Referral ID Status Reason Start Date Expiration Date V isits Requested Visits Authorized [id number] Closed Consult, Test & Treat [facility] 05/28/2016 05/28/2017 1 1 Encounter Details Date Type Department Care Team (Late st Contact Info) Description 11/23/2016 1:00 PM EDT [place] [address] Jenna Chandler MD [facility] [place] [address] Memory loss Social History Tobacco Use Types [...] Sign Reading Time Taken Comments Blood Pressure 147/67 11/23/2016 12:46 PM EDT Pulse 82 11/23/2016 12:46 PM EDT Temperature - - Respiratory Rate - - Oxygen Saturation - - Inhaled Oxygen Concentration - - Weight 69.6 kg (153 lb 6.4 oz) 11/23/2016 12:46 PM EDT Height 151.8 cm (4' 11.75) 11/23/2016 12:46 PM EDT reported Body Mass Index 30.21 11/23/2016 12:46 PM EDT documented in this encounter Patient Instructions * Patient Instructions* Jenna Chandler MD - 11/23/2016 1:00 PM EDT Please go to the lab today: We will check B12 levels today and an ESR because of your headaches. We will repeat an MRI of the brain to evaluate for changes since your last one in 2010. We will also get neuropsych testing - this will look at language, short term memory, executive function, etc, and it will tell us how you're doing compared to age matched and education matched pairs.If abnormal, we should consider what to do with your job. Keep a headache diary, record nature and dates of headaches. Ask your if you snore (or stop breathing, or breath abnormal in any capacity), you could not have sleep apnea which can cause headaches, memory loss, fatigue. Your low blood sugars may cause some problems with the hippocampus. We will also get a routine EEG to look for slowing in the temporal lobes. If none of the above studies are informative, we will pursue a PET scan of the brain or SPECT scan to look at the regional metabolism of the brain. I recommend much much more exercise for your brain health, as well as the mediterranean diet. documented in this encounter Progress Notes * Jenna Chandler MD - 11/23/2016 1:00 PM EDT The patient is a 61 year old female who is seen in consultation at the request of Dr. Yap. The patient is being evaluated for cognitive decline. She reports a decline in episodic memory that started several years (at least 5- 6) ago and has beenprogressive. She saw Dr. Villegas in 2010 for word finding difficulty in the setting of frequent hypoglycemia, and Dr. Villegas thought it was related to stress/sleep deprivation. An MRI brain was done at that time and showed mild non specific age related changes. She does not think that the word finding is so much of a problem now, however, for the past few years, she's been having problems with memory and executive function. She forgets conversations and their details, she has periods of time, especially towards the end of the day/evening where she has no recollection of events whatsoever (complete time lapses). She does demonstrate some mild repetitive questioning (per report of her ,who was not present), she loses items around the home. She has lapses in concentration and attention (loses train of thought, wanders into a room and forgets why, has a problem completing a task linearly), and believes she is more distractible. Denies any moving violations, difficulty with parking, denies fender benders. 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 There has been some thought that these memory episodes are related to hyper and/or hypoglycemia, orthe cumulative effects of the abnormal glucose levels. She is not aware when she becomes hypoglycemia, but has had several severe episodes of hypoglycemia (as low as 16, in which she was unconscious), but she does note that she has problems with information synthesis if she is hyperglycemia. She now has an insulin pump, and notes that she has fewer drastic fluctuations, and perhaps her cognition is slightly improved, but she still has persistent problems. She also notes that her daughter has pointed out episodes in which she (Ebonie) appeared confused, and this prompted her to check her blood glucose, but at those times, it was normal. She also describes, over the past several months, new and frequent headaches, which she has never had previously. Headaches are never in the same spot, sometimes right temporal and a sharp pain down her right cheek, sometimes left sided and throbbing, always progress over the course of the day to the point where her whole head may be pounding. No associated photophobia, phonophobia, nausea, vomiting, no aura. She has some neck pain. No decline in her sense of smell or taste (says her sense of smell has never been that acute), but lately she is more aware of negative smells. She is due for a hearing test in November due to right sided hearing loss. She does snore and is fatigued, especially at the end of the day when she is (cognitively) useless. No focal or generalized weakness, visual changes (blurring of vision or diplopia), denies sensory disturbances (such as numbness or paresthesias). No problems with basic or instrumental ADLs. Patient Active Problem List Diagnosis Code ??? CIS - type 1 DM ??? CIS - Entered not Verified ??? Hypertension I10 ??? Carpal tunnel syndrome on left G56.02 ??? Hypoglycemia unawareness in type 1 diabetes mellitus E10.649 ??? Trigger thumb of left hand M65.312 Social History: No history of tobacco use, no current or past history of alcohol abuse or dependence, no h/o illicit drugs. Family History: maternal GM with dementia in her early 80s; mother sharp, father 97 with dementia; her own sister has some cognitive decline. Allergies Allergen Reactions ??? Penicillins Hives ??? Codeine Nausea And Vomiting ??? Prochlorperazine Current Outpatient Prescriptions on File Prior to Visit Medication Sig Dispense Refill ??? insulin lispro (HUMALOG) Solution Inject 40-50 Units subcutaneously continuous. 40-50 units continuous via pump, SQ, continuous 50 mL 3 ??? blood sugar diagnostic strips (ONETOUCH ULTRA TEST) Strip 1 each by Other route See Admin Instructions. check blood sugar 8x/daily Hypoglycemia unawareness 800 each 3 ??? Diabetic Supplies, Miscellan. [facility] PWO faxed to [facility] Medical 100 each 12 ??? cholecalciferol, Vitamin D3, 1,000 unit Capsule Take 1,000 Units by mouth daily. ??? Diabetic Supplies, Miscellan. [facility] Form faxed to [facility] diabetes for insulin pump supplies 1 each 3 ??? multivitamin with minerals (THERA-M) 9-0.4 mg Tablet Take 1 tablet by mouth daily. ??? lisinopril (PRINIVIL;ZESTRIL) 20 mg Tablet Take 1 tablet by mouth daily. 30 tablet No current facility-administered medications on file prior to visit. ROS: a 12 pt ROS was conducted and is negative except that mentioned in HPI General Physical Examination Appearance: The patient is healthy, in no distress, and appears comfortable. Head: Atruamatic. Normocephalic. Neck: Normal range of movements. Carotid arteries: No bruits detected. Heart: Regular rate and rhythm, no murmurs. Lungs: Clear to auscultation. Abdomen: non distended Extremities: Normal in appearance, no edema. Skin: No rashes or lesions Neurological Examination Mental status: Mood and affect are appropriate. Speech is fluent and appropriate, comprehension fully intact. Attention, concentration, and praxis are intact. Fund of knowledge is normal for educational level. Cranial nerves: Visual guillermo are intact, extra-ocular movements intact, pupils equal and reactive to light, face and smile are symmetric, facial sensation is intact and symmetric, hearing is intact,tongue protrudes midline, palate elevates fully, no dysarthria. Musculoskeletal: Normal power throughout all muscle groups. Normal tone and normal range of motion. Sensory: Sensory exam intact to light touch throughout Cerebellar/coordination: finger to nose intact. Normal fine motor movements. Gait and station: Gait is normal and steady, Romberg negative. Deep Tendon reflexes: DTRs are symmetric and normoactive throughout. Toes are down going. Impression and recommendations: 61 year old female who is seen in consultation at the request of Dr. Yap. The patient is being evaluated for cognitive decline. She reports some mild subjective improvement with initiation of the pump, which is reassuring, but still has persistent cognitive changes noted by her , daughters, and even younger co workers. While hypoglycemia and hyperglycemiacan certainly affect the medial temporal lobes negatively, she did have episodes in which she apparently appeared confused and had no recollection of these episodes, and they were associated with normoglycemia. A recent article revealed that subclinical hippocampal seizures may contribute to cognitive decline, so this will be important to rule out. If a routine EEG is abnormal, we will likely pursue both longer term monitoring and/or an FDG PET not only to look for a seizure focus, but for focal MTL abnormalities due to persistent glucose abnormalities and/or a neurodegenerative d/o (given her FH). Please go to the lab today: We will check B12 levels today and an ESR because of your headaches. We will repeat an MRI of the brain to evaluate for changes since your last one in 2010, since she has had both subjective and objective cognitive decline and now c/o new headaches. We will also get neuropsych testing. She will keep a headache diary, record nature and dates of headaches. We will discuss at follow up,sooner PRN. She will ask her if you snore (or stop breathing, or breath abnormal in any capacity), as could not have sleep apnea which can cause headaches, memory loss, fatigue. Recommended that she try to get much more exercise for your brain health, as well as the mediterranean diet. While normal age related changes, exacerbated by caregiver/occupational stress and her aforementioned metabolic abnormalities is certainly a potential etiology, this is a diagnosis of exclusion. 80 minutes were spent on chart review and with the patient, and at least 41 minutes spent on directeducation and supportive counseling, education on memory loss, the diagnosis and management, and coordination of care. MRI and EEG could be done same day with follow up with me afterwards (not necessarily same day), hopefully w/in 3-4 months. Neuropsych testing tends to have a longer wait list so I will see if I can get her a more abbreviated battery. documented in this encounter Plan of Treatment Upcoming Encounters Date Type Department Care Team (Late st Contact Info) Description 06/05/2024 10:15 AM EST Office [place] [address] Namita Bansal MD [facility] [place] [address] Scheduled Referrals Name Type Priority Associated Diagnoses Order Schedule Referral to Psychiatry Outpatient Referral Routine Memory loss Ordered: 11/23/2016 documented as of this encounter Goals Goal Patient Goal Type Associated Problems Recent Progress Patient-Stated? Author Exercise 3x per week (30 min per time) Exercise No Keila Arango CDE documented as of this encounter Results * EEG, EXTENDED MONITORING; UP TO ONE HOUR PRFM (12/24/2016 10:28 PM EDT) Narrative Jerrod Ring MD - 12/24/2016 10:28 PM EDT Jerrod Ring MD ? 12/24/2016 10:28 PM [facility] Department of Neurology Out patient EEG Report Name of the Patient: ??Ebonie Sol Date of : ?1955 Date of Service: ?12/23/2016 Referring physician: ?Dr. Jenna Chandler BRIEF HISTORY: Ebonie Sol is a 61 y.o. year old patient with ??recurrent hypoglycemia and memory loss, also fh of dementia. MEDICATIONS: Current Outpatient Prescriptions Medication Sig Dispense Refill ? ? insulin lispro (HUMALOG) Solution Inject 40-50 Units subcutaneously continuous. 40-50 ??units continuous via pump, SQ, continuous 50 mL 3 ? ? blood sugar diagnostic strips (ONETOUCH ULTRA TEST) Strip 1 each by Other route See Admin Instructions. check blood sugar 8x/daily ??Hypoglycemia unawareness 800 each 3 ? ? Diabetic Supplies, Miscellan. [facility] PWO faxed to [facility] Medical 100 each 12 ? ? cholecalciferol, Vitamin D3, 1,000 unit Capsule Take 1,000 Units by mouth daily. ? Diabetic Supplies, Miscellan. [facility] Form faxed to [facility] diabetes for insulin pump supplies 1 each 3 ? ? multivitamin with minerals (THERA-M) 9-0.4 mg Tablet Take 1 tablet by mouth daily. ? lisinopril (PRINIVIL;ZESTRIL) 20 mg Tablet Take 1 tablet by mouth daily. 30 tablet ?? No current facility-administered medications for this encounter. ?? METHODS: A 21 channel digitized electroencephalogram was performed in the [facility] Clinical Neurophysiology Laboratory. The 10/20 international system of electrode placement was used and bipolar and referential electrode montages were recorded. ??In addition to EEG the patient was monitored for EKG and lateral/vertical eye movements. Video was recorded during the session. The duration of the recording was 30 minutes. DATA ANALYSIS ASSISTANT'S REPORT: Performed by: Hollie Patient was not sleep deprived. Sleep was not attained. Photic stimulation was performed. Hyperventilation was performed. Effort was was adequate. Movement and other artifact was not significant. Comments: Very cooperative, she had MRI today. ELECTROENCEPHALOGRAPHER'S REPORT: Background The background is symmetric, exhibiting a moderate amplitude 9 Hz posterior dominant rhythm with lower-amplitude beta frequencies anteriorly. ??With eye opening the background activity changed to a low voltage mixture of alpha, beta, and occasional theta range frequencies. Sleep No electrographic evidence of stage II sleep was seen, but there were bursts of slightly asymmetric left greater than right slowing in the theta frequency range seen in drowsiness. Hyperventilation Hyperventilation was performed without appearance of abnormal activity. Photic Stimulation Photic stimulation using a step-oconnor increase in photic frequency varying from 1-21Hz resulted in bilateral driving responses but no abnormal activity. Abnormal EEG Activity There was few occasions of left greater than right sided bursts of theta during drowsiness, not necessarily abnormal EKG The precordial tracing revealed a regular rhythm with physiologic variation PRIOR EEG: No previous EEG reports were readily available. INTERPRETATION and CLINICAL CORRELATION: This EEG is within normal limits during the awake and drowsy state as well as during the activation procedures of hyperventilation and photic stimulation. The mild [id number] right sided slowing in drowsiness could be normal, but the asymmetry could also due to the apparently greater left sided white matter changes seen on MRI. ?? No epileptiform discharges, clinical or subclinical seizures were captured. Buddy Dean MD Epilepsy Fellow #[id number] 12/24/2016 9:13 AM. Neurology Attending I have personally reviewed the EEG, and I agree with the details as written. ?? The above report was formulated in discussion with me at the time of EEG reading, and I agree with it as documented. Jerrod Ring MD [place] [address] Pager: [phone], #[phone] Email: [email or web address] Jenna Chandler MD NEUROLOGY ORDERABL ES * MRI Brain wo Contrast (12/23/2016 12:42 [...] signal with a few, scattered foci of [id number] alteration in the left cerebral hemisphere. No [...] change in the appearance of the brain [id number]. Atelectatic right maxillary sinus. I have personally reviewed the image(s) and the residents interpretationand agree with the findings, Humble Holland at 12/23/2016 2:16 PM Jenna Chandler MD IMG MRI ORDERABLES documented in this encounter Visit Diagnoses Diagnosis Memory loss Memory loss Memory loss documented in this encounter Care Teams Roof Bolter Operator Relationship Specialty Start Date End Date Mitchell Yap MD [address] [place] [address] PCP - General 05/19/10 07/17/23 documented as of this encounter
--- OUTSIDE RECORDS SUMMARY | 2024-04-18 13:16 | XMS_ITS | Encounter Summary ---
[place] [address] Care Team Providers Care Head Bucker Name Role Phone Mitchell Yap MD Primary Care Provider [phone] Encounter Details Date Type Department Care Team (Latest Contact Info) Description 05/22/2018 1:35 PM EST Laboratory Appointment Lab [address] [address] Uncontrolled type 1 diabetes mellitus with hypoglycemia without coma Social History Tobacco Use Types [...] 10:15 AM EST Office Visit [place] [address] Namita Bansal MD [facility] [place] [address] documented as of this encounter Goals Goal Patient Goal Type Associated Problems Recent Progress Patient-Stated? Author Exercise 3x per week (30 min per time) Exercise No Keila Arango, CDE documented as of this encounter Procedures Procedure Name Priority Date/Time Associated Diagnosis Comments CREATININE STAT 05/22/2018 2:01 PM EST Uncontrolled type 1 diabetes mellitus with hypoglycemia without coma LDL CHOLESTEROL, DIRECT STAT 05/22/2018 2:01 PM EST Uncontrolled type 1 diabetes mellitus with hypoglycemia without coma HEMOGLOBIN A1C STAT 05/22/2018 2:01 PM EST Uncontrolled type 1 diabetes mellitus with hypoglycemia without coma documented in this encounter Results * (ABNORMAL) Hemoglobin A1c (05/22/2018 2:01 PM EST) Hemoglobin A1c 6.5(H) 4.3 - 5.6 % [facility] Comment: Reference Range: 4.3 - [...] 36: Suppl. 1, S6774 Estimated Average Glucose 140 mg/dL [facility] Comment: eAG equivalents for HbA1c [...] into estimated average glucose values. ??Diabetes Care 2008:31(8):9762-8590. Blood specimen (specimen) 05/22/2018 2:01 PM EST 05/22/2018 2:14 PM EST Narrative Resulting Agency Comment Spec In Lab Lin Rojas MD CHEMISTRY ORDERABLES [facility] [place] [address] * Creatinine (05/22/2018 2:01 PM EST) Creatinine 0.78 0.70 - 1.20 mg/dL [facility] Est Glomerular Filtration Rate 82 >=60 mL/min/1.7 3 m?? [facility] Comment: The eGFR was calculated using the CKD-EPI equation. As with all creatinine based estimates of kidney function, eGFR values calculated with the CKD-EPI equation are not accurate in patients with acute kidney failure, extremes of body mass or the acutely ill. http://[employer]/[facility] eGFR 95 >=60 mL/min/1.7 3 m?? [facility] Comment: The eGFR was calculated using the CKD-EPI equation. As with all creatinine based estimates of kidney function, eGFR values calculated with the CKD-EPI equation are not accurate in patients with acute kidney failure, extremes of body mass or the acutely ill. http://[employer]/[facility] Blood specimen (specimen) 05/22/2018 2:01 PM EST 05/22/2018 2:14 PM EST Narrative Resulting Agency Comment Spec In Lab Lin Rojas MD CHEMISTRY ORDERABLES Performing Organization Address [facility] Co de Phone Number [facility] [place] [address] * LDL Cholesterol, Direct (05/22/2018 2:01 PM EST) LDL Cholesterol, Direct 109 mg/dL [facility] Comment: Lowest Risk: <100 mg/dL Lower Risk: 100-129 mg/dL Borderline High Risk: 130-159 mg/dL High Risk: 160-189 mg/dL Very High Risk: >pi=377 mg/dL Blood specimen (specimen) 05/22/2018 2:01 PM EST 05/22/2018 2:14 PM EST Narrative Resulting Agency Comment Spec In Lab Lin Rojas MD CHEMISTRY ORDERABLES Performing Organization Address [facility] Co de Phone Number [facility] [place] [address] documented in this encounter Visit Diagnoses Diagnosis Uncontrolled type 1 diabetes mellitus with hypoglycemia without coma documented in this encounter Care Teams Head Bucker Relationship Specialty Start Date End Date Mitchell Yap MD [address] [place] [address] PCP - General 05/19/10 07/17/23 documented as of this encounter
--- OUTSIDE RECORDS SUMMARY | 2024-04-18 13:16 | XMS_ITS | Encounter Summary ---
Author Organization [facility] [place] [address] Care Team Providers Care Vocational Director Name Role Phone Mitchell Yap MD Primary Care Provider [phone] Reason for Visit * Reason Onset Date Comments Medication Refill 06/14/2016 Encounter Details Date Type Department Care Team (Late st Contact Info) Description 06/14/2016 Refill [place] [address] Jessica Garcia LNA Social History Tobacco Use [...] 10:15 AM EST Office [place] [phone] Namita Bansal MD [facility] [place] [address] documented as of this encounter Goals Goal Patient Goal Type Associated Problems Recent Progress Patient-Stated? Author Exercise 3x per week (30 min per time) Exercise No Keila Arango, CDE documented as of this encounter Visit Diagnoses Not on filedocumented in this encounter Care Teams Vocational Director Relationship Specialty Start Date End Date Mitchell Yap MD [address] [place] [address] PCP - General 05/19/10 07/17/23 documented as of this encounter
--- OUTSIDE RECORDS SUMMARY | 2024-04-18 13:16 | XMS_ITS | Encounter Summary ---
[place] [address] Care Team Providers Care Heel Painter Name Role Phone Mitchell Yap MD Primary Care Provider [phone] Encounter Details Date Type Department Care Team (Latest Contact Info) Description 04/08/2017 8:43 AM EDT - 04/08/2017 11:59 PM EDT Hospital Encounter [place] [phone] Discharge Disposition: Home Social History Tobacco Use [...] Start Date End Date Diabetic Supplies, Miscellan. [facility] CMN form faxed to [employer] 100 each 12 02/24/2017 Diabetic Supplies, Miscellan. [facility] PWO faxed to [facility] 100 each 01/17/2017 ADVAIR DISKUS 100-50 mcg/dose Disk with Device Inhale 1 puff into the lungs daily. 11/23/2016 Diabetic Supplies, Miscellan. Misc Form faxed to [facility] for insulin pump supplies 1 each 3 [...] AM EST Office Visit [place] [phone] Namita Bansal MD [facility] [place] [address] documented as of this encounter Goals Goal Patient Goal Type Associated Problems Recent Progress Patient-Stated? Author Exercise 3x per week (30 min per time) Exercise No Keila Arango CDE documented as of this encounter Visit Diagnoses Not on filedocumented in this encounter Care Teams Heel Painter Relationship Specialty Start Date End Date Mitchell Yap MD [address] [place] [address] PCP - General 05/19/10 07/17/23 documented as of this encounter
--- OUTSIDE RECORDS SUMMARY | 2024-04-18 13:16 | XMS_ITS | Encounter Summary ---
Author [place] [address] Care Team Providers Care Paper Production Engineer Name Role Phone Mitchell Yap MD Primary Care Provider [phone] Reason for Visit * Reason Onset Date Comments Questions 06/14/2016 Encounter Details Date Type Department Care Team (Late st Contact Info) Description 06/14/2016 [place] [phone] Anyi Arthur, RN Questions Social History Tobacco Use Types Packs/Day Years [...] encounter Miscellaneous Notes * Telephone Encounter - Anyi Arthur, RN - 06/14/2016 11:05 AM EST Ebonie calls in and left message that she would like to get a call back. She request a new dexcom transmitter through [facility] medical. States that they asked her if she wants to get the G4 or G5. States she unsure and would like to know what the difference is. Placed call to Ebonie let her know will ask Luma Conti to give her a call as junior underwriter is unsure what differences there are. documented in this encounter Plan of Treatment Upcoming Encounters Date Type Department Care Team (Late st Contact Info) Description 06/05/2024 10:15 AM EST Office [place] [address] Namita Bansal MD [facility] [place] [address] documented as of this encounter Goals Goal Patient Goal Type Associated Problems Recent Progress Patient-Stated? Author Exercise 3x per week (30 min per time) Exercise No Keila Arango CDE documented as of this encounter Visit Diagnoses Not on filedocumented in this encounter Care Teams Paper Production Engineer Relationship Specialty Start Date End Date Mitchell Yap MD [address] [place] [address] PCP - General 05/19/10 07/17/23 documented as of this encounter
--- OUTSIDE RECORDS SUMMARY | 2024-04-18 13:16 | XMS_ITS | Encounter Summary ---
[place] [address] Care Team Providers Care Hunting Sales Associate Name Role Phone Mitchell Yap MD Primary Care Provider [phone] Reason for Visit * Auth/Cert Specialty Diagnoses / Procedures Referred By Malka vera Referred To Contact Diagnoses RIGHT INDEX left long trigger finger Procedures PRO INCISE FINGER TENDON SHEATH TENDON SHEATH INCISION (TRIGGER FINGER) (WRVU 3.11) Referral ID Status Reason Start Date Expiration Date Visits Re quested Visits Authorized [id number] 1 1 Encounter Details Date Type Department Care Team (Late st Contact Info) Description 09/26/2018 9:30 AM EDT Anesthesia Event [place] [phone] Keegan Ramirez DO [facility] [place] [address] Anesthesia Record Procedure Summary Procedure Name Responsible Anesthesiologist Anesthesia Start Time Anesthesia Stop Time TENDON SHEATH INCISION (TRIGGER FINGER) (WRVU 3.11) (Left: Finger) Keegan Ramirez DO 09/26/18 0930 09/26/18 1007 Events Date Time Event Comment 09/26/2018 0930 0930 Start 0935 AN Verify 0935 An Start Data 0937 Anesthesia Ready 0958 an stop data 1007 Recovery or ICU Handoff Deya ent care was transferred to the destination unit staff after review of the patient's medical history, current anesthetic/surgical status and plan, according to the Provider Handoff Checklist. 1007 Stop Meds Name Total Midazolam 2 mg fentaNYL 100 mcg IV Lidocaine 40 mg Propofol 40 mg Propofol INF 94.4 mg Dexmedetomidine 4 mcg Ondansetron 4 mg Ketorolac 15 mg PHENYLephrine 160 mcg ePHEDrine 5 mg lactated ringers infusion 500 mL * Agents Name O2 Air N2O O2 Auxiliary Flowmeter 1 * Blood No blood administrations on file. Lines, Drains, and Airways Type Details Placement Removal Incision 09/26/18; third fing er; Left long finger; 02/22/22 (LDA cleanup utility RA#[id number]); 1715 (LDA cleanup utility RA#[id number]) 09/26/18 0000 by Lin Walls RN 02/22/22 1715 by Evita Ramos (RETIRED) Peripheral IV Line - Single Lumen 09/26/18; 0901; median cubital vein (antecubital fossa), right; [id number] catheter system; 20 gauge, 22 gauge; Alexa RN, and Simone RN; distraction, intradermal injection; 1; Location1: (select this item first), median cubital vein (antecubital fossa), left; no longer indicated; 09/26/18; 1031 09/26/18 0901 by Belinda Duran, RN 09/26/18 1031 by Brenda Leyva Supraglottic Oral Airway: 80 mm ( 3); Inserted by: Holland PARRA; Removal Date: 10/10/18; Removal Time: 1015 09/26/18 0945 by Teresa Lino CRNA 10/10/18 1015 by Alexa Aguillon, RN documented in this encounter Social History [...] OR Notes * Anesthesia Postprocedure Evaluation - Keegan Ramirez DO - 09/26/2018 10:49 AM EDT [facility] Department of Anesthesiology Post-procedure Note Patient: Ebonie Sol Procedure Summary Date: 09/26/18 Room / Location: [facility] OR [address] [place] [address] Anesthesia Start: 929 Anesthesia Stop: 1007 Procedure: TENDON SHEATH INCISION (TRIGGER FINGER) (WRVU 3.11) (Left Finger) Diagnosis: Trigger finger, left middle finger Trigger finger, right index finger (RIGHT INDEX left long trigger finger) Surgeon: Laith Diehl MD Responsible Provider: Keegan Ramirez DO Anesthesia Type: MAC ASA Status: 2 All Anesthesia Providers: Anesthesiologist: Keegan Ramirez DO DISTRIBUTION DISPATCHER: Teresa Lino CRNA Vitals Value Taken Time BP 101/56 09/26/2018 10:15 AM Temp Pulse 90 09/26/2018 10:15 AM Resp 16 09/26/2018 10:15 AM SpO2 98 % 09/26/2018 10:15 AM Pain Level 0 09/26/2018 10:39 AM Patient Location: PACU/[facility] Level of Consciousness: Awake and Alert Pain Management: Satisfactory Analgesia PONV: None Cardiovascular Status: Hemodynamically Stable Respiratory Status: Stable Respiratory Status Postoperative Fluid Status: Intravascular EUvolemia Possible Anesthetic Complications: NONE apparent at time of evaluation Final Primary Anesthesia Type: MAC (The anesthetic type performed was the same as planned.) Comments: * Anesthesia Preprocedure Evaluation - Keegan Ramirez DO - 09/25/2018 8:50 PM EDT Pre-Anesthesia Evaluation for: Ebonie Sol a [...] 3.11) performed by Laith Diehl MD at [facility] ??? PRO WRIST ARTHROSCOP, RELEASE XVERS LIG Left 06/16/2015 ENDOSCOPY WRIST W/ RELEASE TRANSVERSE CARPAL LIGAMENT performed by Laith Diehl MD at [facility] Social History Tobacco Use ??? Smoking status: Former Smoker Types: Cigarettes Last attempt to quit: 02/16/1979 Years since quittin.6 ??? Smokeless tobacco: Never Used Substance Use Topics ??? Alcohol use: Yes Comment: 3 drinks/week Social History Substance and Sexual Activity Drug Use No Allergies Allergen Reactions ??? Penicillins Hives ??? Codeine Nausea And Vomiting ??? Prochlorperazine Medications: MAR and/or home medications have been reviewed. Physical Exam: There were no vitals filed for this visit. There is no height or weight on file to calculate BMI. Airway Assessment: Mallampati: I TM distance: >3 FB Neck ROM: full Cardiovascular Assessment: Rhythm: regular Rate: normal Pulmonary Assessment: breath sounds clear to auscultation Dental Assessment: Comment: Slightly loose upper left lateral incisor Misc Assessment: Patient is wearing No contact(s). IV access: Peripheral line Anesthesia Plan: ASA 2 MAC, with a(n) intravenous induction 63 yr old female for trigger finger release. She had this surgery previously under deep MAC. PMH: type 1 DM, GERD, asthma, and htn. HgbA1c 6.5 NPO No changes to her health. Wants deep sedation. NO decadron for post op nausea. She had severely elevated BS after decadron with her last procedure. Region - Other Informed Consent: Anesthetic plan and risks discussed with patient. Plan discussed with DISTRIBUTION DISPATCHER. PAT Clinic Note documented in this encounter Plan of Treatment Upcoming Encounters Date Type Department Care Team (Late st Contact Info) Description 06/05/2024 10:15 AM EST Office [place] [address] Namita Bansal MD [facility] [place] [address] documented as of this encounter Goals Goal [...] Site dexmedetomidine (PRECEDEX) injection PRN, Starting on Tue09/26/18 at 0936, Until Tue09/26/18 at 1007, Anesthesia Intra-op, Routine Given 09/26/2018 9:36 AM EDT 4 mcg ePHEDrine 5 mg/mL multi-dose injection PRN, Starting on Tue09/26/18 at 0954, Until Tue09/26/18 at 1007, Anesthesia Intra-op, Routine Given 09/26/2018 9:54 AM EDT 5 mg fentaNYL 50 mcg/mL multi-dose injection PRN, Starting on Tue09/26/18 at 0934, Until Tue09/26/18 at 1007, Anesthesia Intra-op, Routine Given 09/26/2018 9:44 AM EDT 25 mcg Given 09/26/2018 9:40 AM EDT 25 mcg Given 09/26/2018 9:37 AM EDT 25 mcg ketorolac (TORADOL) injection PRN, Starting on Tue09/26/18 at 0945, Until Tue09/26/18 at 1007, Anesthesia Intra-op, Routine Given 09/26/2018 9:45 AM EDT 15 mg lactated ringers infusion 1,000 mL, at 100 mL/hr, Intravenous, CONTINUOUS, Starting on Tue09/26/18 at 0845, Until Tue09/26/18 at 1027, Day of Surgery (Day of Procedure) New Bag 09/26/2018 9:23 AM EDT lidocaine (PF) (XYLOCAINE) 100 mg/5 mL (2 %) injection PRN, Starting on Tue09/26/18 at 0936, Until Tue09/26/18 at 1007, Anesthesia Intra-op, Routine Given 09/26/2018 9:36 AM EDT 40 mg midazolam (PF) (VERSED) multi-dose injection PRN, Starting on Tue09/26/18 at 0930, Until Tue09/26/18 at 1007, Anesthesia Intra-op, Routine Given 09/26/2018 9:30 AM EDT 2 mg ondansetron (ZOFRAN) injection PRN, Starting on Tue09/26/18 at 0945, Until Tue09/26/18 at 1007, Anesthesia Intra-op, Routine Given 09/26/2018 9:45 AM EDT 4 mg PHENYLephrine in NS (PF) (MIKAYLA-SYNEPHRINE) 0.8 mg/10 mL (80 mcg/mL) multi-dose injection Syrg PRN, Starting on Tue09/26/18 at 0947, Until Tue09/26/18 at 1007, Anesthesia Intra-op, Routine Given 09/26/2018 9:51 AM EDT 80 mcg Given 09/26/2018 9:47 AM EDT 80 mcg propofol (DIPRIVAN) 10 mg/mL bolus injection (Anesthesia) PRN, Starting on Tue09/26/18 at 0937, Until Tue09/26/18 at 1007, Anesthesia Intra-op Given 09/26/2018 9:45 AM EDT 10 mg Given 09/26/2018 9:37 AM EDT 30 mg propofol (DIPRIVAN) infusion CONTINUOUS PRN, Starting on Tue09/26/18 at 0937, Until Tue09/26/18 at 1007, Anesthesia Intra-op, Routine New Bag 09/26/2018 9:37 AM EDT 100 mcg/kg/min 35.4 mL/hr documented in this encounter Care Teams Hunting Sales Associate Relationship Specialty Start Date End Date Mitchell Yap MD [address] [place] [address] PCP - General 05/19/10 07/17/23 documented as of this encounter
--- OUTSIDE RECORDS SUMMARY | 2024-04-18 13:16 | XMS_ITS | Encounter Summary ---
Author Organization [facility] [place] [address] Care Team Providers Care Lap Regulator Name Role Phone Mitchell Yap MD Primary Care Provider [phone] Reason for Visit * Reason Onset Date Comments Medication Refill 02/24/2017 Encounter Details Date Type Department Care Team (Late st Contact Info) Description 02/24/2017 Ref[place] [phone] Jessica Garcia LNA Social History Tobacco Use [...] 10:15 AM EST Office [place] [phone] Namita Bansal MD [facility] [place] [address] documented as of this encounter Goals Goal Patient Goal Type Associated Problems Recent Progress Patient-Stated? Author Exercise 3x per week (30 min per time) Exercise No Keila Arango, CDE documented as of this encounter Visit Diagnoses Not on filedocumented in this encounter Care Teams Lap Regulator Relationship Specialty Start Date End Date Mitchell Yap MD [address] [place] [address] PCP - General 05/19/10 07/17/23 documented as of this encounter
--- OUTSIDE RECORDS SUMMARY | 2024-04-18 13:16 | XMS_ITS | Encounter Summary ---
[place] [address] Care Team Providers Care Manager Bakery Name Role Phone Mitchell Yap MD Primary Care Provider [phone] Reason for Visit * Reason Comments Procedure 30 minute out patien t EEG Encounter Details Date Type Department Care Team (Latest Contact Info) Description 12/23/2016 12:53 PM EDT - 12/23/2016 11:59 PM EDT Hospital [place] [address] Memory loss Discharge Disposition: Home Social History [...] Diabetic Supplies, Miscellan. Misc Form faxed to [facility] for insulin pump supplies 1 each [...] each 3 11/09/2016 01/30/2018 Diabetic Supplies, Miscellan. [facility] fax[facility] to [facility] 100 each 12 06/14/2016 01/17/2017 cholecalciferol, Vitamin D3, 1,000 unit Capsule Take 1,000 Units by mouth daily. 05/22/2018 documented as of this encounter Procedure Notes * Jerrod Ring MD - 12/23/2016 1:34 PM EDTAssociated Order(s): EEG, EXTENDED Procedure(s): EEG, EXTENDED MONITORING; UP TO ONE HOUR PRFM Pre-Procedure Diagnose(s): Memory loss [facility] Department of Neurology Out patient EEG Report Name of the Patient: Ebonie Sol Date of : 1955 Date of Service: 12/23/2016 Referring physician: Dr. Jenna Chandler BRIEF HISTORY: Ebonie Sol is a 61 y.o. year old patient with recurrent hypoglycemia and memory loss, also fh of dementia. MEDICATIONS: Current Outpatient Prescriptions Medication Sig Dispense Refill ??? insulin lispro (HUMALOG) Solution Inject 40-50 Units subcutaneously continuous. 40-50 units continuous via pump, SQ, continuous 50 mL 3 ??? blood sugar diagnostic strips (ONETOUCH ULTRA TEST) Strip 1 each by Other route See Admin Instructions. check blood sugar 8x/daily Hypoglycemia unawareness 800 each 3 ??? Diabetic Supplies, Miscellan. [facility] faxed to [facility] 100 each 12 ??? cholecalciferol, Vitamin D3, 1,000 unit Capsule Take 1,000 Units by mouth daily. ??? Diabetic Supplies, Miscellan. [facility] [place] faxed to [facility] for insulin pump supplies 1 each 3 ??? multivitamin with minerals (THERA-M) 9-0.4 mg Tablet Take 1 tablet by mouth daily. ??? lisinopril (PRINIVIL;ZESTRIL) 20 mg Tablet Take 1 tablet by mouth daily. 30 tablet No current facility-administered medications for this encounter. METHODS: A 21 channel digitized electroencephalogram was performed in the [facility] Clinical Neurophysiology Laboratory. The 10/20 international system of electrode placement was used and bipolar and referential electrode montages were recorded. In addition to EEG the patient was monitored for EKGand lateral/vertical eye movements. Video was recorded during the session. The duration of the recording was 30 minutes. FIELD SALES SPECIALIST'S REPORT: Performed by: Hollie Patient was not sleep deprived. Sleep was not attained. Photic stimulation was performed. Hyperventilation was performed. Effort was was adequate. Movement and other artifact was not significant. Comments: Very cooperative, she had MRI today. ELECTROENCEPHALOGRAPHER'S REPORT: Background The background is symmetric, exhibiting a moderate amplitude 9 Hz posterior dominant rhythm with lower-amplitude beta frequencies anteriorly. With eye opening the background activity changed to a lowvoltage mixture of alpha, beta, and occasional theta range frequencies. Sleep No electrographic evidence of stage II sleep was seen, but there were bursts of slightly asymmetricleft greater than right slowing in the theta [...] drowsy state as well as during the activationprocedures of hyperventilation and photic stimulation. The mild dhxo-[id number]-[id number] right sided slowing in drowsiness could be normal, but the asymmetry could also due to the apparently greater left sided white matter changes seen on MRI. No epileptiform discharges, clinical or subclinical seizures were captured. Buddy Dean MD Epilepsy Fellow #[id number] 12/24/2016 9:13 AM. Neurology Attending I have personally reviewed the EEG, and I agree with the details as written. The above report was formulated in discussion with me at the time of EEG reading, and I agree with it as documented. Jerrod Ring MD [place] [address] Pager: [phone], #[phone] Email: [email or web address] documented in this encounter Plan of Treatment Upcoming Encounters Date Type Department Care Team (Late st Contact Info) Description 06/05/2024 10:15 AM EST Office [place] [address] Namita Bansal MD [facility] DR ENDOCRINOLOGY DEPT [place] [id number] documented as of this encounter Goals Goal Patient Goal Type Associated Problems Recent Progress Patient-Stated? Author Exercise 3x per week (30 min per time) Exercise No Keila Arango, CDE documented as of this encounter Procedures Procedure Name Priority Date/Time Associated Diagnosis Comments EEG, EXTENDED MONITORING; UP TO ONE HOUR PRFM Routine 12/24/2016 10:28 PM EDT Memory loss documented in this encounter Results * EEG, EXTENDED MONITORING; UP TO ONE HOUR PRFM (12/24/2016 10:28 PM EDT) Narrative Jerrod Ring MD - 12/24/2016 10:28 PM EDT Jerrod Ring MD ? 12/24/2016 10:28 PM [facility] Department of Neurology Out patient EEG [...] 3 ? ? blood sugar diagnostic strips ([employer]TOUCH ULTRA TEST) Strip 1 each by Other route See Admin Instructions. check blood sugar 8x/daily ??Hypoglycemia unawareness 800 each 3 ? ? Diabetic Supplies, Miscellan. [facility] faxed to [facility] 100 each 12 ? ? cholecalciferol, Vitamin D3, 1,000 unit Capsule Take 1,000 Units by mouth daily. ? [facility], [facility] fax[facility] to [facility] diabetes for insulin pump supplies 1 each 3 ? ? multivitamin with minerals (THERA-M) 9-0.4 mg Tablet Take 1 tablet by mouth daily. ? lisinopril (PRINIVIL;ZESTRIL) 20 mg Tablet Take 1 tablet by mouth daily. 30 tablet ?? No current facility-administered medications for this encounter. ?? METHODS: A 21 channel digitized electroencephalogram was performed in the [facility] Clinical Neurophysiology Laboratory. The 10/20 international system of electrode placement was used and bipolar and referential electrode montages were recorded. ??In addition to EEG the patient was monitored for EKG and lateral/vertical eye movements. Video was recorded during the session. The duration of the recording was 30 minutes. FIELD SALES SPECIALIST'S REPORT: Performed by: Hollie Patient was not [...] of hyperventilation and photic stimulation. The mild zgfa-bekwobb-fdll right sided slowing in drowsiness could be normal, but the asymmetry could also due to the apparently greater left sided white matter changes seen on MRI. ?? No epileptiform discharges, clinical or subclinical seizures were captured. Buddy Dean MD Epilepsy Fellow #[id number] 12/24/2016 9:13 AM. Neurology Attending I have personally reviewed the EEG, and I agree with the details as written. ?? The above report was formulated in discussion with me at the time of EEG reading, and I agree with it as documented. Jerrod Ring MD Department of Neurology [place] [phone] Pager: [phone], #[phone] Email: [email or web address] Jenna Chandler MD NEUROLOGY ORDERABL ES documented in this encounter Visit Diagnoses Diagnosis Memory loss documented in this encounter Care Teams Manager Bakery Relationship Specialty Start Date End Date Mitchell Yap MD [address] [place] [address] PCP - General 05/19/10 07/17/23 documented as of this encounter
--- OUTSIDE RECORDS SUMMARY | 2024-04-18 13:16 | XMS_ITS | Encounter Summary ---
Author Organization [facility] [place] [address] Care Team Providers Care Section Gang Worker Name Role Phone Mitchell Yap MD Primary Care Provider [phone] Reason for Visit * Reason Onset Date Comments Medication Refill 01/17/2017 Encounter Details Date Type Department Care Team (Late st Contact Info) Description 01/17/2017 [place] [id number] Jenna Chandler MD [facility] [place] [address] Social History Tobacco Use Types Packs/Day Years [...] Encounter - Abby Hernandez RN - 01/17/2017 1:[address] Chandler: Patient should take indomethacin 75 mg one additional capsule today, two capsules tomorrow and two capsules Tuesday, then discontinue. Call placed to patient and relayed message above. Patient verb understanding and is agreeable to plan. documented in this encounter Plan of Treatment Upcoming Encounters Date Type Department Care Team (Late st Contact Info) Description 06/05/2024 10:15 AM EST Office [place] [address] Namita Bansal MD [facility] [place] [address] documented as of this encounter Goals Goal Patient Goal Type Associated Problems Recent Progress Patient-Stated? Author Exercise 3x per week (30 min per time) Exercise No Keila Arango CDE documented as of this encounter Visit Diagnoses Not on filedocumented in this encounter Care Teams Section Gang Worker Relationship Specialty Start Date End Date Mitchell Yap MD [address] [place] [id number] PCP - General 05/19/10 07/17/23 documented as of this encounter
--- OUTSIDE RECORDS SUMMARY | 2024-04-18 13:16 | XMS_ITS | Encounter Summary ---
Author Organization [facility] [address] Care Team Providers Care Oil Well Fishing Tool Operator Name Role Phone Mitchell Yap MD Primary Care Provider [phone] Encounter Details Date Type Department Care Team (Late st Contact Info) Description 11/23/2016 [place] [address] Hossein Colon Social History Tobacco Use Types Packs/Day Years [...] 10:15 AM EST Office [place] [address] Namita Bansal MD [facility] DR ENDOCRINOLOGY DEPT [place], [place] [id number] documented as of this encounter Goals Goal Patient Goal Type Associated Problems Recent Progress Patient-Stated? Author Exercise 3x per week (30 min per time) Exercise No Keila Arango, CDE documented as of this encounter Visit Diagnoses Not on filedocumented in this encounter Care Teams Oil Well Fishing Tool Operator Relationship Specialty Start Date End Date Mitchell Yap MD [address] [place] [id number] PCP - General 05/19/10 07/17/23 documented as of this encounter
--- OUTSIDE RECORDS SUMMARY | 2024-04-18 13:16 | XMS_ITS | Encounter Summary ---
[place] [address] Care Team Providers Care Computer Programming Manager Name Role Phone Mitchell Yap MD Primary Care Provider [phone] Encounter Details Date Type Department Care Team (Late st Contact Info) Description 08/06/2016 [place] [phone] Anyi Arthur, RN Social History Tobacco Use Types Packs/Day [...] Miscellaneous Notes * Telephone Encounter - Anyi Arthur RN - 08/06/2016 4:25 PM EST Ebonie calls in and left message that she is in need of a new serter as hers is broken. States that she did call [facility] medical and they informed patient that she needs to contact MD office to get them. Message forwarded to Luma Conti for Follow up documented in this encounter Plan of Treatment Upcoming Encounters Date Type Department Care Team (Late st Contact Info) Description 06/05/2024 10:15 AM EST [place] [address] Namita Bansal MD [facility] DR ENDOCRINOLOGY DEPT [place] [phone] documented as of this encounter Goals Goal Patient Goal Type Associated Problems Recent Progress Patient-Stated? Author Exercise 3x per week (30 min per time) Exercise No Keila Arango, CHRISTIANO documented as of this encounter Visit Diagnoses Not on filedocumented in this encounter Care Teams Computer Programming Manager Relationship Specialty Start Date End Date Mitchell Yap MD [address] [place] [address] PCP - General 05/19/10 07/17/23 documented as of this encounter
--- OUTSIDE RECORDS SUMMARY | 2024-04-18 13:16 | XMS_ITS | Encounter Summary ---
Author Organization [facility] [place] [address] Care Team Providers Care Scientific Process Operator Name Role Phone Mitchell Yap MD Primary Care Provider [phone] Encounter Details Date Type Department Care Team (Latest Contact Info) Description 06/30/2016 1:00 PM EST Office Visit [place] [phone] Luma Curtis, [place] [address] Diabetes mellitus type 1, uncomplicated Social History [...] Sign Reading Time Taken Comments Blood Pressure 152/68 06/30/2016 1:06 PM EST Pulse 96 06/30/2016 1:06 PM EST Temperature - - Respiratory Rate - - Oxygen Saturation - - Inhaled Oxygen Concentration - - Weight 65.3 kg (144 lb) 06/30/2016 1:06 PM EST Height - - Body Mass Index 29.08 06/10/2016 11:51 AM EST documented in this encounter Progress Notes * Luma Conti LD - 06/30/2016 1:00 PM EST Diabetes and Nutrition Note Ebonie Sol is a 61 y.o. female with Type 1 Diabetes using the [employer] Pump. Pt here for enlite sensor training. Pt was educated on how to use the sensor, calibrate, insert, take off, start sensor, stop sensor. Pt was educated on alerts and alarms, how to treat BG accordingly. Pt will be using flonase as her skin had reactions to the sensor previously. Flonase was applied after alcohol and we waited about 5 mins before inserting the new sensor. Pt had a high BG today that didn't come down 181 before eating, before visit. Pt arrived to hospital and ate an empanada took insulin 1.9 units at 11:42am. Later on BG at 1:37pm and BG was 273. Pt was trained on the unit and checked BG again at2:16pm it had gone up to 295. We assumed something was wrong at this point. Pt checked and her lastsite and reservoir change was on the so she is a day late changing- we discussed this. We checked her reservoir and there were bubbles in her reservoir- she could have delivered a bubble and no insulin. I showed pt how to remove the bubbles from her reservoir. It looked like all bubbles were removed. Pt checked site- site looked ok. Suggested we have her take an injection, however pt forgot her syringe and insulin at home. Recommended we do a bolus here with our insulin. Pt declined 3x as she has an apt to get stitches removed. The pt said she will all me if she needs insulin before she leaves the hospital. I explained it's better for us to give her insulin today to get the BG down andwe could give her a juice if needed as well to hold onto and see how her BG is. Explained the above to our nurses so they were aware of the situation in case pt called. Recent Labs 11/05/15 1110 HA1C 7.0* BP 152/68 Pulse 96 Wt 65.3 kg (144 lb) BMI 29.08 kg/m2 Pt was here for 1.5 hours. No charge. documented in this encounter Plan of Treatment Upcoming Encounters Date Type Department Care Team (Late st Contact Info) Description 06/05/2024 10:15 AM EST Office Visit [place] [address] [facility] [place] [address] documented as of this encounter Goals Goal Patient Goal Type Associated Problems Recent Progress Patient-Stated? Author Exercise 3x per week (30 min per time) Exercise No Keila Arango CDE documented as of this encounter Visit Diagnoses Diagnosis Diabetes mellitus type 1, uncomplicated Type I (juvenile type) diabetes mellitus without mention of complication, not stated as uncontrolled documented in this encounter Care Teams Scientific Process Operator Relationship Specialty Start Date End Date Mitchell Yap MD [address] [place] [phone] PCP - General 05/19/10 07/17/23 documented as of this encounter
--- OUTSIDE RECORDS SUMMARY | 2024-04-18 13:16 | XMS_ITS | Encounter Summary ---
[place] [address] Care Team Providers Care Transformer Molder Name Role Phone Mitchell Yap MD Primary Care Provider [phone] Encounter Details Date Type Department Care Team (Latest Contact Info) Description 11/09/2016 12:30 PM EDT Laboratory Appointment Lab [address] [place] [address] Uncontrolled type 1 diabetes mellitus with other specified complication [...] 10:15 AM EST Office [place] [address] Namita Bansal MD [facility] DR ENDOCRINOLOGY [place] [address] documented as of this encounter Goals Goal Patient Goal Type Associated Problems Recent Progress Patient-Stated? Author Exercise 3x per week (30 min per time) Exercise Keila Espinoza, CHRISTIANO documented as of this encounter Procedures Procedure Name Priority Date/Time Associated Diagnosis Comments U ALBUMIN/CRE RATIO Routine 11/09/2016 1 :22 PM EDT Uncontrolled type 1 diabetes mellitus with other specified complication CREATININE STAT 11/09/2016 1:13 PM EDT Uncontrolled type 1 diabetes mellitus with other specified complication LDL CHOLESTEROL, DIRECT STAT 11/09/2016 1:13 PM EDT Uncontrolled type 1 diabetes mellitus with other specified complication HEMOGLOBIN A1C STAT 11/09/2016 1:13 PM EDT Uncontrolled type 1 diabetes mellitus with other specified complication documented in this encounter Results * U Albumin/Cre Ratio (11/09/2016 1:22 PM EDT) Albumin / Creatinin Ratio, Urine Not Calculated 0 - 29 mcg/mg Cr [facility] Comment: Reference Ranges: <30 mcg/mg: [...] 2, 357? 362 Albumin, Urine <3.0 mg/L [facility] Creatinine, Urine 75 mg/dL [facility] Urine specimen (specimen) 11/09/2016 1:22 PM EDT 11/09/2016 1:31 PM EDT Narrative Resulting Agency Comment Spec In Lab Lin Rojas MD URINE ORDERABLES Performing Organization Address [facility] Co de Phone Number [facility] [place] [address] * (ABNORMAL) Creatinine (11/09/2016 1:13 PM EDT) Creatinine 0.69(L) 0.70 - 1.20 mg/dL [facility] Comment: Please note that the pediatric reference intervals supplied above were not validated at [facility]. Results from pediatric patients should be interpreted in conjunction to the patient's age, height and muscle mass. Est Glomerular Filtration Rate >60 >=60 [facility] Comment: This estimated GFR (eGFR) value was calculated using the MDRD equation which has been validated on patients between the ages of 18 and 70. The MDRD should not be used to assess kidney function in patients < 18 years of age or in patients with extremes of body mass, or in patients with acute kidney failure. This value should be multiplied by 1.2 for patients. For further information please copy and paste the following links into your internet browser. [email or web address] Blood specimen (specimen) 11/09/2016 1:13 PM EDT 11/09/2016 1:20 PM EDT Narrative Resulting Agency Comment Spec In Lab Lin Rojas MD CHEMISTRY ORDERABLES Performing Organization Address [facility] Co de Phone Number [facility] [place] [address] * LDL Cholesterol, Direct (11/09/2016 1:13 PM EDT) LDL Cholesterol, Direct 107 <=190 mg/dL [facility] Blood specimen (specimen) 11/09/2016 1:13 PM EDT 11/09/2016 1:20 PM EDT Narrative Resulting Agency Comment Spec In Lab Lin Rojas MD CHEMISTRY ORDERABLES [facility] [place] [address] * (ABNORMAL) Hemoglobin A1c (11/09/2016 1:13 PM EDT) Hemoglobin A1c 6.9(H) 4.3 - 5.6 % [facility] Comment: Reference Range: 4.3 - [...] Mellitus, Diabetes Care 2013; 36: Suppl. 1, S67-57 Estimated Average Glucose 151 mg/dL [facility] Comment: eAG equivalents for HbA1c [...] into estimated average glucose values. ??Diabetes Care 2008:31(8):1411-8559. Blood specimen (specimen) 11/09/2016 1:13 PM EDT 11/09/2016 1:20 PM EDT Narrative Resulting Agency Comment Spec In Lab Lin Rojas MD CHEMI[place] [address] documented in this encounter Visit Diagnoses Diagnosis Uncontrolled type 1 diabetes mellitus with other specified complication documented in this encounter Care Teams Transformer Molder Relationship Specialty Start Date End Date Mitchell Yap MD [address] [place] [id number] PCP - General 05/19/10 07/17/23 documented as of this encounter
--- OUTSIDE RECORDS SUMMARY | 2024-04-18 13:16 | XMS_ITS | Encounter Summary ---
Author Organization Formerly [facility] [place] [address] Care Team Providers Care Fish And Wildlife Warden Name Role Phone Mitchell Yap MD Primary Care Provider [phone] Reason for Referral * Consultation (Routine) - Closed Specialty Diagnoses / Procedures Referred By Malka vera Referred To Contact Sleep Center Diagnoses Cognitive decline Automatism Jenna Chandler MD [facility] [place] [address] [facility] Sleep Medicine [address] [place] [address] Referral ID Status Reason Start Date Expiration Date V isits Requested Visits Authorized [id number] Closed Consult, Test & Treat 01/10/2017 01/10/2018 1 1 Encounter Details Date Type Department Care Team (Late st Contact Info) Description 01/10/2017 8:00 AM EDT Office [place] [address] [facility] [address] Cognitive decline; Automatism Social History Tobacco Use Types Packs/Day [...] Sign Reading Time Taken Comments Blood Pressure 142/66 01/10/2017 8:02 AM EDT Pulse 74 01/10/2017 8:02 AM EDT Temperature - - Respiratory Rate - - Oxygen Saturation - - Inhaled Oxygen Concentration - - Weight 68.9 kg (152 lb) 01/10/2017 8:02 AM EDT Height 149.9 cm (4' 11) 01/10/2017 8:02 AM EDT reported Body Mass Index 30.7 01/10/2017 8:02 AM EDT documented in this encounter Patient Instructions * Patient Instructions* Jenna Chandler MD - 01/10/2017 8:00 AM EDT 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 Indomethacin (Indocin) is a medication that fights inflammation, similar to ibuprofen or naproxen, but indomethacin is unique in that it is the only medication that functions as a rodriguez in the lock to stop HC. Usually indomethacin is started at a low dose, such as 25 mg, taken 3 times per day with meals. The dose is then increased until the head pain is relieved. Doses can sometimes reach 75 mg 3 times per day or more before the pain is fully blocked. When taking this medication, stomach protection against ulcers and bleeding is generally required. Proton pump inhibitors, such as omeprazole or lansoprazole, or H2 receptor antagonists, such as ranitidine or famotidine, can provide such protection. Start Indomethacin 25mg PO BID for a day, then increase to 25mg PO TID for a day or two, do not stop it, but email me via the patient portal to let me know how you're doing so we can decide whether or not to keep increasing the dose. While you're taking indomethacin, please take omeprazole Because of the spells of confusion, I will order a 72 hour EEG. You also need a sleep study. It is possible that all of this is related to sleep deprivation, fatigue, stress, but first I thinkwe should rule out a seizure disorder and sleep disorder. documented in this encounter Progress Notes * Jenna Chandler MD - 01/10/2017 8:00 AM EDT 61 year old female here for follow up of cognitive decline, thought possibly related to hyper/hypoglycemia, sleep deprivation, sleep apnea, fatigue. She is with her today. He mentions that she has periods of confusion at night time, usually during or after dinner time, in which she is quiteconfused, non responsive, her speech makes no sense, and she makes funny faces. He demonstrated some grimaces and facial movements that could be automatisms. No other abnormal movements. He also notes forgetfulness: repetition of statements, questions, and she is often convinced she told him something, but he does not believe she did. She is no longer working, her dad is at a prison to give her some respite. She remains fatigued, but her sleep patterns are modestly improved. Her says oh yeah (emphatically) when asked if she snores. She continues to have a left sided headache, constantly present (17/01) x 5-6 months. It is a pressure, present upon waking up, but worsening over the course of the day. No visual decline or visual symptoms/abnormalities. She does lay on her left side. She denies neck pain. 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 Her father is 97, has dementia, no other family members w/ dementia. Her MRI of the brain is unchanged from that done in 2011 (a stable left parietal focus of T2 hyperintensity, non specific), some medial temporal and parietal atrophy, unchanged. Weight is stable. Patient Active Problem List Diagnosis Code ??? CIS - type 1 DM ??? CIS - Entered not Verified ??? Hypertension I10 ??? Carpal tunnel syndrome on left G56.02 ??? Hypoglycemia unawareness in type 1 diabetes mellitus E10.649 ??? Trigger thumb of left hand M65.312 Allergies Allergen Reactions ??? Penicillins Hives ??? Codeine Nausea And Vomiting ??? Prochlorperazine Current Outpatient Prescriptions on File Prior to Visit Medication Sig Dispense Refill ??? insulin lispro (HUMALOG) Solution Inject 40-50 Units subcutaneously continuous. 40-50 units continuous via pump, SQ, continuous 50 mL 3 ??? cholecalciferol, Vitamin D3, 1,000 unit Capsule Take 1,000 Units by mouth daily. ??? multivitamin with minerals (THERA-M) 9-0.4 mg Tablet Take 1 tablet by mouth daily. ??? lisinopril (PRINIVIL;ZESTRIL) 20 mg Tablet Take 1 tablet by mouth daily. 30 tablet ??? blood sugar diagnostic strips (Big StageTOUCH ULTRA TEST) Strip 1 each by Other route See Admin Instructions. check blood sugar 8x/daily Hypoglycemia unawareness 800 each 3 ??? Di[place] [facility] [place] [facility] Medical 100 each 12 ??? Diabetic Supplies, [place]. [facility] [place] [facility] for insulin pump supplies 1 each 3 No current facility-administered medications on file prior to visit. Vitals: 01/10/17 0802 BP: 142/66 Pulse: 74 NAD, sometimes mildly tearful, anxious. Impression and plan: While hypoglycemia and hyperglycemia can certainly affect the medial temporal lobes negatively, she did have episodes in which she apparently appeared confused and had no recollection of these episodes, and they were associated with normoglycemia. Her mentions and describes what could be facial automatisms. Her recent EEG showed some mild L > R slowing, which couldbe normal in drowsiness, but I do not feel comfortable assuming this given the abnormal behaviors and cognitive decline. We will pursue a 72 hour EEG. A recent article suggested that subclinical hippocampal seizures may contribute to cognitive decline, so this will be important to rule out. We may ultimately consider an FDG PET not only to look for a seizure focus, but for focal MTL abnormalities due to persistent glucose abnormalities and/or a neurodegenerative d/o (given her FH). ?? In regards to cognition and headaches, we checked TSH, B12, MMA, ESR, and all were normal. 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 She was counseled to stop all aspirin and other NSAIDs, as well astylenol, and we will start a trial of indomethacin 25mg PO BID for one day, then increase to 25mg PO TID, possibly up to 50mg PO TID and she will check in with me to let me know how she is toleratingit and how her headaches are doing. Recommended that she keep a headache diary with a pain scale rating each day. Indomethacin will be taken along with omeprazole. We will likely continue the indomethacin only 7-10 days. ?? neuropsych testing pending (scheduled for 01/13). ?? She will keep a headache diary, record nature and dates of headaches. We will discuss at follow up,sooner PRN. ?? Given that she does snore (quite loudly per ), will arrange for sleep study to evaluate for sleep apnea which can cause headaches, memory loss, fatigue. ?? 40 minutes were spent on chart review and with the patient, and at least 25 minutes spent on directeducation, supportive counseling, and coordination of care. documented in this encounter Plan of Treatment Upcoming Encounters Date Type Department Care Team (Late st Contact Info) Description 06/05/2024 10:15 AM EST Office Visit [place] [address] [facility] [place] [address] Scheduled Referrals Name Type Priority Associated Diagnoses Orde r Schedule Referral to Sleep Disorders Center Outpatient Referral Routine Cognitive decline Automatism Ordered: 01/10/2017 documented as of this encounter Goals Goal Patient Goal Type Associated Problems Recent Progress Patient-Stated? Author Exercise 3x per week (30 min per time) Exercise No Keila Arango CDE documented as of this encounter Results * EEG, EXTENDED MONITORING; UP TO ONE HOUR PR[facility] (04/13/2017 10:37 AM EDT) Narrative Dionte Adams MD - 04/13/2017 10:37 AM EDT BuDionte alvares MD ? 04/13/2017 10:37 AM [facility] Department of Neurology 72 hour Ambulatory EEG Report Name of the Patient: ??Ebonie Sol Date of : ?1955 Date of Service: ?04/11/2017 Referring physician: ?Dr. Jenna Chandler BRIEF HISTORY: Ebonie Sol is a 62 y.o. year old patient with question of seizures. MEDICATIONS: Current Outpatient Prescriptions Medication Sig Dispense Refill ? ? Diabetic Supplies, [place]. [facility] to [employer] 100 each 12 ? ? Diabetic Supplies, Miscellan. [facility] [place] to [facility] Medical 100 each 12 ? ? indomethacin [...] by mouth daily. ? Diabetic Supplies, [place]ellan. [facility] [place] [facility] diabetes for insulin pump supplies 1 each 3 ? ? multivitamin with minerals (THERA-M) 9-0.4 mg Tablet Take 1 tablet by mouth daily. ? lisinopril (PRINIVIL;ZESTRIL) 20 mg Tablet Take 1 tablet by mouth daily. 30 tablet ?? No current facility-administered medications for this encounter. ?? METHODS: A 21 channel digitized electroencephalogram was performed in the [facility] Clinical Neurophysiology Laboratory. The 10/20 international system of electrode placement was used and bipolar and referential electrode montages were recorded. ??In addition to EEG the patient was monitored for EKG and lateral/vertical eye movements. Video was recorded during the session. The duration of the recording was 72 hours. EXAM PROCTOR'S REPORT: Performed by: Mago Patient was not [...] of hyperventilation and photic stimulation. The mild [id number] right sided slowing in drowsiness could be [...] classified elsewhere Automatism Other conditions of brain Cognitive decline Unspecified persistent mental disorders due to conditions classified elsewhere Automatism Other conditions of brain documented in this encounter Care Teams Fish And Wildlife Warden Relationship Specialty Start Date End Date Mitchell Yap MD [address] [place] [address] PCP - General 05/19/10 07/17/23 documented as of this encounter
--- OUTSIDE RECORDS SUMMARY | 2024-04-18 13:16 | XMS_ITS | Encounter Summary ---
Author Organization [facility] [address] Care Team Providers Care Car Dumper Operator Helper Name Role Phone Mitchell Yap MD Primary Care Provider [phone] Encounter Details Date Type Department Care Team (Late st Contact Info) Description 07/08/2017 1:30 PM EST Office [place] [address] Lin Rojas MD [facility] [place] [address] Uncontrolled type 1 diabetes mellitus with hypoglycemia [...] Progress Notes * Lin Rojas MD - 07/08/2017 1:30 PM EST Images from the original note were not included. Endocrinology Clinic Follow-up Visit Reason for Visit: Follow-up of Diabetes Mellitus Type 1 HISTORY OF PRESENT ILLNESS: Ms. Ebonie Sol is a 62 y.o. year old lady with history significant for DM type 1 on a medtronic insulin pump and Enlite CGM, whom I last saw about 1 year ago, in Apr 2016 at which time I had cutback her overnight basal rates and also arranged for her to be set up for her CGM due to frequent hypoglycemia and hypoglycemia unawareness. At her last visit in our clinic in October 2016, with Abby Campbell APRN, she had taken some time off of her CGM and was having some mild hypoglycemia in the 50s-60s, so she was advised to resume the CGM use, and also be less aggressive with her boluses. Date of Diagnosis: 1957 ?? Last HgbA1c: 7.0% (07/08/17), 6.9% (October 2016), 7.0% (October 2015) ?? Current Diabetes Medication regimen: Insulin pump Minimed 523 - humalog ?? FSBG regimen: 6-10x/day ?? 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 No symptoms. ?? Diet: ?? Physical Activity: ?? Smoking: ?? History of complications 1) Nephropathy - Um:cr , sCr 2) Neuropathy - no n/t, except when [...] CIS - type 1 DM MEDICATIONS: Medications 07/08/17 1328 Medication Sig Taking? nabumetone (RELAFEN) 500 mg Tablet Take 500 mg by mouth 2 times daily. calcium-vitamin D3 (CALCIUM 600 + D,3,) 600 mg(1,500mg) -400 unit Tablet Take 1 tablet by mouth 2 times daily. Diabetic [place], [place] [facility] [place] to [employer] Diabetic Supplies, [place]iscellan[place] [facility] [place] to [facility] Medical ADVAIR DISKUS 100-50 mcg/dose Disk with Device Inhale 1 puff into the lungs daily. insulin lispro (HUMALOG) Solution Inject 40-50 Units subcutaneously continuous. 40-50 units continuous via pump, SQ, continuous Patient taking differently: Inject 40-50 Units subcutaneously continuous. Via [employer] 523 blood sugar diagnostic strips (BringShareUCH ULTRA TEST) Strip 1 each by Other route See Admin Instructions. check blood sugar 8x/daily Hypoglycemia unawareness cholecalciferol, Vitamin D3, 1,000 unit Capsule Take 1,000 Units by mouth daily. Diabetic Supplies, [place]. [facility] [place] to [facility] diabetes for insulin pump supplies multivitamin with minerals (THERA-M) 9-0.4 mg Tablet Take 1 tablet by mouth daily. lisinopril (PRINIVIL;ZESTRIL) 20 mg Tablet Take 1 tablet by mouth daily. ALLERGIES: Allergies Allergen Reactions ??? Penicillins Hives ??? Codeine Nausea And Vomiting ??? Prochlorperazine SOCIAL HISTORY: History Smoking Status ??? Former Smoker ??? Types: Cigarettes ??? Quit date: 02/16/1979 Smokeless Tobacco ??? Never Used FAMILY HISTORY: Family History Relation Problem Age of Onset ??? Sister Cancer REVIEW OF SYSTEMS: All 12 systems reviewed and negative except as noted per HPI. PHYSICAL EXAM: Vitals Office Visit from 07/08/2017 in Endocrinology at [place] Weight 69 kg (152 lb 3.2 oz) Height 149.9 cm (4' 11.02) BSA (Calculated - sq m) 1.7 sq meters BMI (Calculated) 30.72 Heart Rate 86 BP 150/82 Gen: NAD, AAOx3, speaking full sentences, calm pleasant demeanor, habitus Foot exam: no wounds or sores, dry skin ASSESSMENT: 62 yo F with DM type 1 c/b hypoglycemia unawareness, control has improved with the guidance of the CGM, which she finds very useful. Still having some intermittent hypoglycemia, mostly mild, in the 60s, but occasionally down to the 40s. I noticed that sometimes her hypoglycemia occurs when she's given herself multiple doses of correctional insulin within a short span of time, sometimes doses are only about 30 min apart. I cautioned her that administering correctional boluses more frequently than every 2 hours can lead to stacking, which can make her BG crash once the stacked dosesreach their peak action. She will work on improving this; she notes that she has to fight the urge,as she has always tried to be compulsive about fixing high blood glucose levels. Her currently basal rates seem to be working well, but her 3:30am basal rate may have room to decrease slightly, as her fasting BG often straddle the hypoglycemia threshold, between high 60s and mid 70s. I suggested that if this continues to be the case, she can decrease her 3:30am basal rate by one notch. PLAN: --no changes to pump settings today, but I recommended decreasing her 3:30am basal rate by one notch if her fasting BG continue to be in the 60s-70s most days. --advised to refrain from using correctional boluses more frequently than every 2 hours, to allow her previous bolus time to work. --she will be looking into getting an upgrade to her insulin pump to the Medtronic 670g in the nearfuture. --f/u in 6 months with Abby Campbell APRN, labs 1 hour prior to appt. 25 min of this 40 min face to face visit was spent in counselign the patient on DM mgmt. LIN ROJAS MD Digital Advisorwire rope sling maker Section of Endocrinology [facility] documented in this encounter Plan of Treatment Upcoming Encounters Date Type Department Care Team (Late st Contact Info) Description 06/05/2024 10:15 AM EST Office [place] [address] Namita Bansal MD [facility] [place] [address] documented as of this encounter Goals Goal Patient Goal Type Associated Problems Recent Progress Patient-Stated? Author Exercise 3x per week (30 min per time) Exercise No Keila Arango, CHRISTIANO documented as of this encounter Results * LDL Cholesterol, Direct (05/22/2018 2:01 PM EST) LDL Cholesterol, Direct 109 mg/dL [facility] Comment: Lowest Risk: <100 mg/dL Lower Risk: 100-129 mg/dL Borderline High Risk: 130-159 mg/dL High Risk: 160-189 mg/dL Very High Risk: >su=510 mg/dL Blood specimen (specimen) 05/22/2018 2:01 PM EST 05/22/2018 2:14 PM EST Narrative Resulting Agency Comment Spec In Lab Lin Rojas MD CHEMISTRY ORDERABLES Performing Organization Address City/[facility] Co de Phone Number [facility] [place] [address] * Creatinine (05/22/2018 2:01 PM EST) Creatinine 0.78 0.70 - 1.20 mg/dL [facility] Est Glomerular Filtration Rate 82 >=60 mL/min/1.7 3 m?? [facility] Comment: The eGFR was calculated using the CKD-EPI equation. As with all creatinine based estimates of kidney function, eGFR values calculated with the CKD-EPI equation are not accurate in patients with acute kidney failure, extremes of body mass or the acutely ill. [email or web address] eGFR 95 >=60 mL/min/1.7 3 m?? [facility] Comment: The eGFR was calculated using the CKD-EPI equation. As with all creatinine based estimates of kidney function, eGFR values calculated with the CKD-EPI equation are not accurate in patients with acute kidney failure, extremes of body mass or the acutely ill. [email or web address] Blood specimen (specimen) 05/22/2018 2:01 PM EST 05/22/2018 2:14 PM EST Narrative Resulting Agency Comment Spec In Lab Lin Rojas MD CHEMISTRY ORDERABLES [facility] [place] [address] * (ABNORMAL) Hemoglobin A1c (05/22/2018 2:01 PM EST) Hemoglobin A1c 6.5(H) 4.3 - 5.6 % [facility] Comment: Reference Range: 4.3 - [...] Mellitus, Diabetes Care 2013; 36: Suppl. 1, Q97-25 Estimated Average Glucose 140 mg/dL [facility] Comment: eAG equivalents for HbA1c [...] into estimated average glucose values. ??Diabetes Care 2008:31(8):9399-4333. Blood specimen (specimen) 05/22/2018 2:01 PM EST 05/22/2018 2:14 PM EST Narrative Resulting Agency Comment Spec In Lab Lin Rojas MD CHEMISTRY ORDERABLES Performing Organization Address City/State/[facility] Co de Phone Number [facility] [place] [address] documented in this encounter Visit Diagnoses Diagnosis Uncontrolled type 1 diabetes mellitus with hypoglycemia without coma documented in this encounter Care Teams Car Dumper Operator Helper Relationship Specialty Start Date End Date Mitchell Yap MD [address] [place] [address] PCP - General 05/19/10 07/17/23 documented as of this encounter
--- OUTSIDE RECORDS SUMMARY | 2024-04-18 13:17 | XMS_ITS | Encounter Summary ---
[place] [address] Care Team Providers Care Zoning Engineer Name Role Phone Mitchell Yap MD Primary Care Provider [phone] Reason for Visit * Reason Onset Date Comments Other 08/08/2015 Encounter Details Date Type Department Care Team (Late st Contact Info) Description 08/08/2015 [place] [id number] Anyi Arthur, RN Other Social History Tobacco Use Types Packs/Day Years [...] Telephone Encounter - Anyi Arthur RN - 08/11/2015 8:12 AM EST Eboine Sol - 08/08/2015 10:38 AM >','<< Less Detail',event) href=javascript:;><< Less Detail ?? Ebonie Betancourt, LD ?? Sent: TueAugust 08, 2015 12:04 PM ? To: Anyi Arthur RN ? Message ? I did get her email. Could you call her and see if she can come in on 08/19 in the morning when Cathy from [employer] will be here. I know Ebonie has lots of allergies to the sensor and hopefully if we all put our heads together we can come up with a plan/solution. Any where from 8 to 11 that morning.I think I have another pt at 11. Placed call to Ebonie who asks for a 9am appointment. Information given to secretaries * Telephone Encounter - Anyi Arthur RN - 08/08/2015 10:38 AM EST Ebonie calls nurse triage line and left voicemail message. States that she has emailed Ebonie Betancourt about sensors. Is at work today until 2pm and would like to get a call back. Ebonie Betancourt and Abby Campbell not in office on Fridays. Placed call back to Ebonie who states that the last time she saw Ebonie Betancourt sent her a note pertaining to restarting the sensors again. Did have allergic reaction before so stopped using them. States that she has been having some lows and doesn't feel them so would like to talk about going back onthe sensors. Woke up with a 43 this morning. Let Ebonie Know will forward message to Abby and Ebonie Betancourt. Also states that she needs a refill of her pump supplies which she gets through [facility] diabetes. No paperwork received for Ebonie will call [facility]. documented in this encounter Plan of Treatment Upcoming Encounters Date Type Department Care Team (Late st Contact Info) Description 06/05/2024 10:15 AM EST Office [place] [address] Namita Bansal MD [facility] [place] [address] documented as of this encounter Goals Goal Patient Goal Type Associated Problems Recent Progress Patient-Stated? Author Exercise 3x per week (30 min per time) Exercise No Keila Arango, CDE documented as of this encounter Visit Diagnoses Not on filedocumented in this encounter Care Teams Zoning Engineer Relationship Specialty Start Date End Date Mitchell Yap MD [address] [place] [address] PCP - General 05/19/10 07/17/23 documented as of this encounter
--- OUTSIDE RECORDS SUMMARY | 2024-04-18 13:17 | XMS_ITS | Encounter Summary ---
Author Organization [facility] [place] [address] Care Team Providers Care Tire Layer Name Role Phone Mitchell Yap MD Primary Care Provider [phone] Reason for Visit * Reason Comments Left Hand Pain left trigger thumb Encounter Details Date Type Department Care Team (Late st Contact Info) Description 06/02/2016 2:45 PM EST Office [place] [phone] Laith Diehl MD [facility] [place] [address] Trigger thumb of left hand Social History [...] Sign Reading Time Taken Comments Blood Pressure 140/72 06/02/2016 2:56 PM EST Pulse 79 06/02/2016 2:56 PM EST Temperature - - Respiratory Rate - - Oxygen Saturation - - Inhaled Oxygen Concentration - - Weight 63.5 kg (140 lb) 06/02/2016 2:56 PM EST s tated Height 151.8 cm (4' 11.75) 06/02/2016 2:[address] stated Body Mass Index 27.57 06/02/2016 2:56 PM EST documented in this encounter Progress Notes * Laith Diehl MD - 06/02/2016 2:45 PM EST Ebonie Sol presents with triggering and locking at the A1 jeannette level of her left thumb. She is scheduled to undergo an A1 jeannette release of her left thumb next week. I previously have done a left carpal tunnel release. 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 Her exam today shows triggering and locking of the A1 jeannette level of her left thumb. Her thumb is sensate and well-perfused. She was offered the options of splinting, steroid injection, or A1 jeannette release of her left thumb. She wishes to proceed with A1 jeannette release. She is aware of potential risks of infection, nerve injury, recurrent shortening, stiffness, sensitive scar, thickened scar. We will schedule A1 jeannette release of her left thumb to be done next week. * Sabrina Oliver RN - 06/02/2016 2:45 PM EST Pre op teaching done for trigger thumb release.(left) Patient will flex fingers against orginial dressing [...] 10:15 AM EST Office [place] [address] Namita Bansal MD [facility] [place] [address] documented as of this encounter Goals Goal Patient Goal Type Associated Problems Recent Progress Patient-Stated? Author Exercise 3x per week (30 min per time) Exercise No Keila Arango, CHRISTIANO documented as of this encounter Visit Diagnoses Diagnosis Trigger thumb of left hand Trigger finger (acquired) documented in this encounter Care Teams Tire Layer Relationship Specialty Start Date End Date Mitchell Yap MD [address] [place] [address] PCP - General 05/19/10 07/17/23 documented as of this encounter
--- OUTSIDE RECORDS SUMMARY | 2024-04-18 13:17 | XMS_ITS | Encounter Summary ---
Author Organization [facility] [place] [address] Care Team Providers Care Barrel Charrer Helper Name Role Phone Mitchell Yap MD Primary Care Provider [phone] Encounter Details Date Type Department Care Team (Late st Contact Info) Description 04/03/2015 Telephone [place] [phone] Laith Diehl MD [facility] [place] [address] Social History Tobacco Use Types Packs/Day Years [...] Miscellaneous Notes * Telephone Encounter - Elena Hernandez - 04/03/2015 4:17 PM EDT i have called ebonie and left a message for her to let her know that i am trying to reach her to schedule her left ctr with Dr. Diehl. We will await her call. documented in this encounter Plan of Treatment Upcoming Encounters Date Type Department Care Team (Late st Contact Info) Description 06/05/2024 10:15 AM EST Office Visit [place] [address] Namita Bansal MD [facility] [place] [address] documented as of this encounter Goals Goal Patient Goal Type Associated Problems Recent Progress Patient-Stated? Author Exercise 3x per week (30 min per time) Exercise No Keila Arango, CDE documented as of this encounter Visit Diagnoses Not on filedocumented in this encounter Care Teams Barrel Charrer Helper Relationship Specialty Start Date End Date Mitchell Yap MD [address] [place] [address] PCP - General 05/19/10 07/17/23 documented as of this encounter
--- OUTSIDE RECORDS SUMMARY | 2024-04-18 13:17 | XMS_ITS | Encounter Summary ---
[place] [address] Care Team Providers Care Field Director Name Role Phone Mitchell Yap MD Primary Care Provider [phone] Encounter Details Date Type Department Care Team (Late st Contact Info) Description 06/12/2015 [place] [phone] Anyi Arthur, RN Social History Tobacco Use [...] Telephone Encounter - Anyi Arthur RN - 06/12/2015 10:10 AM EST Placed call to Ebonie, message from Dr Miller given. Ebonie writes down and reads back. Agrees withplan. * Telephone Encounter - Radha Miller MD - 06/12/2015 9:55 AM EST Let's have her use a temporary basal of 80% overnight before the surgery and during surgery. If thesugar is high she can use her usual correction. (In theory we should not need to make an adjustmentif basal rates are set right but since she has had some am lows i think a slight decrease overnightis a good idea). She might want to check at 2-3 am to make sure she is not going too high. * Telephone Encounter - Anyi Arthur RN - 06/12/2015 9:33 AM EST Ebonie calls nurse triage line and left voicemail message that she having surgery on June 16 and is wondering what should do with her pump. Placed call back to Ebonie. States that she is having carpal tunnel release surgery which is about a30 minute procedure. Will be NPO after midnight the night before procedure but can have clear liquids up to 2 hours before the surgery. Will only be available up to 1pm today. Will forward to Dr Miller documented in this encounter Plan of Treatment Upcoming Encounters Date Type Department Care Team (Late st Contact Info) Description 06/05/2024 10:15 AM EST Office [place] [address] Namita Bansal MD [facility] DR [place]OCRIN[place] [address] documented as of this encounter Goals Goal Patient Goal Type Associated Problems Recent Progress Patient-Stated? Author Exercise 3x per week (30 min per time) Exercise No Keila Arango CDE documented as of this encounter Visit Diagnoses Not on filedocumented in this encounter Care Teams Field Director Relationship Specialty Start Date End Date Mitchell Yap MD [address] [place] [address] PCP - General 05/19/10 07/17/23 documented as of this encounter
--- OUTSIDE RECORDS SUMMARY | 2024-04-18 13:17 | XMS_ITS | Encounter Summary ---
[place] [address] Care Team Providers Care Catalytic Converter Operator Name Role Phone Mitchell Yap MD Primary Care Provider [phone] Reason for Visit * Reason Onset Date Comments Other 10/14/2015 Encounter Details Date Type Department Care Team (Late st Contact Info) Description 10/14/2015 Telephone [place] [phone] Anyi Arthur, RN Other Social History Tobacco [...] Telephone Encounter - Anyi Arthur RN - 10/14/2015 8:57 AM EDT Ebonie Calls nurse triage line and left voicemail message that she is looking to start using the MartManiaight sensors again. Is wondering she is all set to start doing this. States that she met with Cathy regarding this a few months ago. Can be reached today at [phone] Message forwarded to Luma Conti RD and Abby Campbell APRN. documented in this encounter Plan of Treatment Upcoming Encounters Date Type Department Care Team (Late st Contact Info) Description 06/05/2024 10:15 AM EST Office Visit [place] [address] Namita Bansal MD [facility] [place] [address] documented as of this encounter Goals Goal Patient Goal Type Associated Problems Recent Progress Patient-Stated? Author Exercise 3x per week (30 min per time) Exercise No Keila Arango CDE documented as of this encounter Visit Diagnoses Not on filedocumented in this encounter Care Teams Catalytic Converter Operator Relationship Specialty Start Date End Date Mitchell Yap MD [address] [place] [address] PCP - General 05/19/10 07/17/23 documented as of this encounter
--- OUTSIDE RECORDS SUMMARY | 2024-04-18 13:17 | XMS_ITS | Encounter Summary ---
Author Organization [facility] [place] [address] Care Team Providers Care Pipe Smoking Machine Operator Name Role Phone Mitchell Yap MD Primary Care Provider [phone] Reason for Visit * Consultation (Routine) - Closed Specialty Diagnoses / Procedures Referred By Malka vera Referred To Contact Endocrinology Diagnoses Uncontrolled type 1 diabetes mellitus with other specified complication Lin Rojas MD [facility] [address] [facility] Endocr[facility]ology [address] [place] [address] Referral ID Status Reason Start Date Expiration Date V isits Requested Visits Authorized [id number] Closed Consult, Test & Treat 05/25/2016 05/25/2017 1 1 Encounter Details Date Type Department Care Team (Late st Contact Info) Description 05/25/2016 1:00 PM EST Office [place] [address] Luma Curtis LD [facility] [address] Type 1 diabetes mellitus without complication Social [...] of this encounter Progress Notes * Luma Conti LD - 05/25/2016 1:00 PM EST Images from the original note were not included. Diabetes and Nutrition Note Ebonie Sol is a 61 y.o. female seen today with her . Pt has Type 1 dm. Filled out an off label script signed by Dr. Lizarraga for pt to get enlite transmitter and 90 angle sensor. Pt is on the 523 pump right now and will need approval for enlite transmitter and sensor instead of the. Discussed today the new pump options and sensors. Discussed proper use of sensor and how to avoid highs and lows Discussed temp basal and suspending the pump Spent most of the visit with BG management and pump therapy management. Pump upgrade: December 13 2016 Can upgrade transmitter now and can trade it in for the new transmitter if wants the 630G Dr. Rojas changes: 4am to 6am 0.550 10am 0.450 15 mins of 1 hour spent on MNT Vitals 05/25/2016 SYSTOLIC 153 DIASTOLIC 78 PULSE 76 TEMPERATURE RESPIRATIONS Height (Burmese) 4' 11 Height (Metric) 149.9 cm Weight (Burmese) 147 lbs 13 oz Weight (Metric) 67.042 kg BODY MASS INDEX 29.85 kg/m2 Pulse Oximetry O2 Device BSA Recent Labs 11/05/15 1110 HA1C 7.0* documented in this encounter Plan of Treatment Upcoming Encounters Date Type Department Care Team (Late st Contact Info) Description 06/05/2024 10:15 AM EST Office [place] [address] [facility] [place] [address] Scheduled Referrals Name Type Priority Associated Diagnoses Orde r Schedule Referral to Diabetic Education Outpatient Referral Routine Uncontrolled Type 1 Diabetes Mellitus With Other Specified Complication Ordered: 05/25/2016 documented as of this encounter Goals Goal Patient Goal Type Associated Problems Recent Progress Patient-Stated? Author Exercise 3x per week (30 min per time) Exercise No Keila Arango, CDE documented as of this encounter Visit Diagnoses Diagnosis Type 1 diabetes mellitus without complication Type I (juvenile type) diabetes mellitus without mention of complication, not stated as uncontrolled documented in this encounter Care Teams Pipe Smoking Machine Operator Relationship Specialty Start Date End Date Mitchell Yap MD [address] [place] [address] PCP - General 05/19/10 07/17/23 documented as of this encounter
--- OUTSIDE RECORDS SUMMARY | 2024-04-18 13:17 | XMS_ITS | Encounter Summary ---
Author Organization [facility] [place] [address] Care Team Providers Care Employment And Claims Aide Name Role Phone Mitchell Yap MD Primary Care Provider [phone] Reason for Visit * Auth/Cert - Closed Specialty Diagnoses / Procedures Referred By Malka vera Referred To Contact Diagnoses Left carpal tunnel syndrome Procedures ENDOSCOPY WRIST W/ RELEASE TRANSVERSE CARPAL LIGAMENT Referral ID Status Reason Start Date Expiration Date Visits Re quested Visits Authorized [id number] Closed 1 1 Encounter Details Date Type Department Care Team (Late st Contact Info) Description 06/16/2015 7:30 AM EST - 06/16/2015 8:00 AM EST Surgery [place] [phone] Jean Diehl MD [facility] [place] [address] ENDOSCOPY WRIST W/ RELEASE TRANSVERSE CARPAL LIGAMENT (WRVU 6.39) Social History Tobacco Use Types Packs/Day Years [...] Reading Time Taken Comments Blood Pressure 95/50 06/16/2015 7:35 AM EST Pulse 74 06/16/2015 7:35 AM EST Temperature 36.2 ??C (97.2 ??F) 06/16/2015 7:35 AM ES T Respiratory Rate 16 06/16/2015 7:35 AM EST Oxygen Saturation 98% 06/16/2015 7:35 AM EST Inhaled Oxygen Concentration - - Weight 58.1 kg (128 lb) 06/16/2015 6:25 AM EST Height 149.9 cm (4' 11.02) 06/16/2015 6:[address] Body Mass Index 25.84 06/16/2015 6:25 AM EST documented in this encounter Discharge Instructions * Patient Instructions* Bandar Ram MD - 06/16/2015 7:36 AM EST Orthopaedic Surgery Discharge Instructions Surgery: Endoscopic Left Carpal Tunnel Release Diet: You may eat a regular diet as tolerated. Driving: No, not until you are cleared to do so by your Orthopedic clinic. Ideally you should not drive while you are on narcotic pain meds as these can affect judgement and reaction time. Call your Surgeon with any questions. Medications: 1. The pain medication you are on can cause constipation so increase your intake of fluids and fiber while you are on them. You can also take an [id number] stool softener, colace or senna, to facilitate a bowel movement. 2. If you need a renewal on your narcotic pain medication, you need to give the Orthopedic clinic enough time to process your request. This can take up to three days, so plan accordingly. Wound: Keep operative hand clean and dry, do not submerge in water until follow- up. You may remove the dressing in 48 hours and then apply a bandaid until follow-up. Activity: Light activity only in the operative hand. Be careful on stairs, as you may be unsteady on your feet. Call your doctor (#[phone]) if: ?? You have a fever > 101.5 or experience chills Increased discharge from the incision Any redness or swelling around the incision Increased pain or change in the pain that is not controlled by your pain medications WHERE TO CALL WITH QUESTIONS [facility] Ask for the resident upper extremity surgeon for your provider [facility] (7:00am - 5:00pm) documented in this encounter Medications at Time of Discharge Medication Sig Dispensed Refills Start Date End Date multivitamin with minerals (THERA-M) 9-0.4 mg Tablet Take 1 tablet by mouth daily. lisinopril (PRINIVIL;ZESTRIL) 20 mg Tablet Take 1 tablet by mouth daily. 30 tablet 09/25/2014 oxyCODONE (ROXICODONE) 5 mg Tablet Take 1 tablet by mouth every 4 hours as needed. 12 tablet 0 06/16/2015 06/30/2015 aspirin 81 mg Tablet, Delayed Release (E.C.) Take 81 mg by mouth once a week. 05/25/2016 insulin lispro (HUMALOG) Solution Inject 40-50 Units subcutaneously continuous. 40-50 units continuous via pump, SQ, continuous 40 mL 3 04/23/2015 10/24/2015 GLUCAGON EMERGENCY KIT, HUMAN, 1 mg Kit 08/06/2014 017 Diabetic Supplies, [employer]. Misc Form faxed to [facility] diabetes for insulin pump supplies 1 each 3 08/21/2014 01/05/2016 ONE TOUCH ULTRA TEST test strip USE TO CHECK GLUCOSE 10-15 TIMES PER DAY 500 each PRN 04/10/2011 10/24/2015 documented as of this encounter H&P Notes * Jean Diehl MD - 06/16/2015 7:06 AM EST Patient Name: Ebonie Sol Patient Age: 60 y.o. Birthdate: 1955 Admit date: 06/16/2015 Attending Physician: Jean Diehl MD I interviewed and examined Ebonie Sol. There have been no apparent interval changes in her health status since the most recent history and physical was done. JEAN DIEHL MD * Jean Diehl MD - 06/14/2015 9:03 PM EST Patient Name: Ebonie Sol Patient Age: 60 y.o. Birthdate: 1955 Admit date: (Not on file) Attending Physician: Jean Diehl MD See scanned document for pre-procedural H&P completed on 06/05/15. documented in this encounter Miscellaneous Notes * Op Note - Jean Diehl MD - 06/16/2015 7:45 AM EST [facility] Operative Note Patient Name: Ebonie Sol : [id number] MR#: [id number] Case Date: 06/16/2015 Surgeon: Surgeon(s) and Role: * Jean Diehl MD - Primary PREOPERATIVE DIAGNOSIS: Left carpal tunnel syndrome. POSTOPERATIVE DIAGNOSIS: Left carpal tunnel syndrome. PROCEDURE PERFORMED: Endoscopic left carpal tunnel decompression. ANESTHESIA: Local with sedation. OPERATIVE INDICATION: The patient is a 60 y.o.-year-old Female with EMG proven left carpal syndrome. It was refractory to conservative treatment. She was brought to the operating room for endoscopic left carpal tunnel decompression. SUMMARY OF PROCEDURE: After 600mg of intravenous clindamycin was administered, the patient's left upper extremity was prepped with Hibiclens scrub and ChloraPrep. Her left arm was draped in a sterilefashion. A preoperative time-out was performed as per [facility] protocol. 8 mL of 1% lidocaine with epinephrine buffered with sodium bicarbonate was injected over the median nerve at the level of the wrist as well as over the palmar side of the patient's left hand. Her left arm was then exsanguinated with an Esmarch bandage. A brachial tourniquet was inflated to 250 mmHg. A transverse incision was made at the palmar wrist crease in line with the ring finger ray. Subcutaneous spreading was performed in a blunt fashion down to the level of the investing fascia of the palmar surface of the forearm. Throughout this dissection, care was taken to avoid injury to subcutaneous neurovascular structures. The investing fascia was incised. It was elevated as a distally based flap which allowed for entry into the carpal tunnel. A synovial elevator was then used to dissect synovium from the undersurface of the transverse carpal ligament. Small and large hamate finders were inserted into the carpal tunnel to confirm the proper level of entry. The Anderson endoscopic carpal tunnel release device was inserted into the carpal tunnel. It was passed distally until the distal edge of the transverse carpal ligament was well visualized. The blade was elevated. The device was withdrawn, transecting the transverse carpal ligament. The device was reinserted and complete release of the transverse carpal ligament was confirmed. Under direct vision, the investing fascia at of the palmar surface of forearm was released well proximal to the wrist incision site using tenotomy scissors. The incision was irrigated and was closed with 4-0 nylon suture. A sterile soft dressing was applied. The tourniquet was released with a total tourniquet time of 4 minutes. All digits rapidly became pink and warm with brisk capillary refill. She was then transferred to the recovery room in stable condition. Estimated blood loss was minimal. IV fluid replacement was 500 mL of crystalloid. She tolerated the procedure well without apparent complications. Attestation: Case Date: 06/16/2015 I performed this procedure without the involvement of a resident. JEAN DIEHL MD 06/16/2015 * Brief Op Note - Jean Diehl MD - 06/16/2015 7:44 AM EST Brief Operative Note Patient Name: Ebonie Sol : [id number] MR#: [id number] Case Date: 06/16/2015 Surgeon: Surgeon(s) and Role: * Jean Diehl MD - Primary Preoperative diagnosis: Left carpal tunnel syndrome Postoperative diagnosis: Left carpal tunnel syndrome Procedure(s): ENDOSCOPY WRIST W/ RELEASE TRANSVERSE CARPAL LIGAMENT Anesthesia: MAC Complications: none Fluids: 500cc crystalloid Estimated Blood Loss: * No values recorded between 06/16/2015 7:24 AM and 06/16/2015 7:31 AM * Disposition: aroused from sedation, and taken to the recovery room in a stable condition Condition: doing well without problems Attestation: Case Date: 06/16/2015 I performed this procedure without the involvement of a resident. (Please see the Surgical Encounter Summary for any Implant and Specimen details pertinent to this patient.) documented in this encounter Plan of Treatment Upcoming Encounters Date Type Department Care Team (Late st Contact Info) Description 06/05/2024 10:15 AM EST Office [place] [address] Namita Bansal MD [facility] [place] [address] documented as of this encounter Goals Goal Patient Goal Type Associated Problems Recent Progress Patient-Stated? Author Exercise 3x per week (30 min per time) Exercise Keila Espinoza CDE documented as of this encounter Procedures Procedure Name Priority Date/Time Associated Diagnosis Comments ENDOSCOPY WRIST W/ RELEASE TRANSVERSE CARPAL LIGAMENT (WRVU 6.39) 06/16/2015 7:15 AM EST Carpal tunnel syndrome on left documented in this encounter Visit Diagnoses Diagnosis Carpal tunnel syndrome on left Carpal tunnel syndrome Carpal tunnel syndrome on left Carpal tunnel syndrome documented in this encounter Administered Medications Inactive Administered Medications - up to 3 most recent administrations Medication Order MAR Action Action Date Dose Rate Site lactated ringers infusion 1,000 mL 1,000 mL, at 100 mL/hr, Intravenous, CONTINUOUS, Starting on Tue06/16/15 at 0645, Until Tue06/16/15 at 1007, Day of Surgery (Day of Procedure) New Bag 06/16/2015 6:45 AM EST 1,000 mLs 100 mL/hr lidocaine-EPINEPHrine 1 %-1:100,000 injection ONCE PRN, Starting on Tue06/16/15 at 0712, Until Tue06/16/15 at 1007, Intra-Operative (Intra-Procedure), Routine Given 06/16/2015 7:12 AM EST 8 mLs sodium bicarbonate 8.4 % (1 mEq/mL) injection ONCE PRN, Starting on Tue06/16/15 at 0714, Until Tue06/16/15 at 1007, Intra-Operative (Intra-Procedure), Routine Given 06/16/2015 7:14 AM EST 0.8 mEq 19- Surgical Site documented in this encounter Active and Recently Administered Medications Times are shown in EST. Scheduled Medication Order 06/14/2015 06/15/2015 06/16/2015 clindamycin (CLEOCIN) 600mg in dextrose 5% 50mL (CANCELED) 600 mg, Intravenous, EVERY 8 HOURS, First dose on Tue06/16/15 at 0730, Until Discontinued, Administer over 20 Minutes, Day of Surgery (Day of Procedure), Indication for (Active or Suspected): Prophylaxis 0725 (Given - Provid er: Teresa Lino CRNA)0730 (Due) Continuous Medication Order 06/14/2015 06/15/2015 06/16/2015 lactated ringers infusion 1,000 mL (CANCELED) 1,000 mL, at 100 mL/hr, Intravenous, CONTINUOUS, Starting on Tue06/16/15 at 0645, Until Tue06/16/15 at 1007, Day of Surgery (Day of Procedure) 0645 (New Bag - Prov ider: Tonya Cintron RN)0730 (Anesthesia Volume Adjustment - Provider: Teresa Lino CRNA) PRN Medication Order 06/14/2015 06/15/2015 06/16/2015 lidocaine-EPINEPHrine 1 %-1:100,000 injection (CANCELED) ONCE PRN, Starting on Tue06/16/15 at 0712, Until Tue06/16/15 at 1007, Intra-Operative (Intra-Procedure), Routine 0712 (Given - Provid er: Jean Diehl MD - Comment: 8.4% sodium bicarb 2cc mixed with 1% lido with epi. total given: 8ml) sodium bicarbonate 8.4 % (1 mEq/mL) injection (CANCELED) ONCE PRN, Starting on Tue06/16/15 at 0714, Until Tue06/16/15 at 1007, Intra-Operative (Intra-Procedure), Routine 0714 (Given - Provid er: Jean Diehl MD - Comment: 8.4% sodium bicarb 2cc mixed with 1% lido with epi. total given: 8ml) documented in this encounter Care Teams Employment And Claims Aide Relationship Specialty Start Date End Date Fracisco, Mitchell H, MD [address] [place] [address] PCP - General 05/19/10 07/17/23 documented as of this encounter
--- OUTSIDE RECORDS SUMMARY | 2024-04-18 13:17 | XMS_ITS | Encounter Summary ---
Author Organization Pending Sale To [facility] [address] Care Team Providers Care Metal Polisher Name Role Phone Mitchell Yap MD Primary Care Provider [phone] Reason for Visit * Auth/Cert Specialty Diagnoses / Procedures Referred By Malka vera Referred To Contact Diagnoses trigger finger, thumb Procedures PRO INCISE FINGER TENDON SHEATH TENDON SHEATH INCISION (TRIGGER FINGER) Referral ID Status Reason Start Date Expiration Date Visits Re quested Visits Authorized [id number] 1 1 Encounter Details Date Type Department Care Team (Late st Contact Info) Description 06/10/2016 12:13 PM EST Anesthesia Event [place] [address] Bridget Sotelo MD [facility] [place] [address] Anesthesia Record Procedure Summary Procedure Name Responsible Anesthesiologist Anesthesia Start Time Anesthesia Stop Time TENDON SHEATH INCISION (TRIGGER FINGER) (WRVU 3.11) (Left: Finger) Bridget Sotelo MD 06/10/16 1213 06/10/16 1250 Events Date Time Event Comment 06/10/2016 1208 1213 Start 1218 AN Verify 1218 An Start Data 1224 Anesthesia Ready 1226 Break/Relief Out Lorraine vera CRNA 1232 An Tourn Inflated 250mmHg 1241 An Tourn Deflated 1247 an stop data 1250 Stop 1254 Recovery or ICU Handoff Deya ent care was transferred to the destination unit staff after review of the patient's medical history, current anesthetic/surgical status and plan, according to the Provider Handoff Checklist. Meds Name Total Midazolam 2 mg fentaNYL 100 mcg Propofol INF 209.55 mg clindamycin (CLEOCIN) 600 mg/50 mL infus ion 600 mg Ondansetron 4 mg Dexamethasone 4 mg Ketorolac 15 mg lactated ringers infusion 1,000 mL 500 m L * Agents Name O2 Air N2O O2 Auxiliary Flowmeter 1 * Blood No blood administrations on file. Lines, Drains, and Airways Type Details Placement Removal Incision 06/16/15; wrist; LDA not present upon assessment; 09/26/18; 0903 06/16/15 0000 by Gita Machuca RN 09/26/18 0903 by Belinda Duran, RN (RETIRED) Peripheral IV Line - Single Lumen 06/10/16; 1213; median cubital vein (antecubital fossa), right; gnos-gks-xupcol catheter system; 20 gauge; pre-op RN; 06/10/16; 1322 06/10/16 1213 by Lorraine Macdonald CRNA 06/10/16 1322 by Abby Stephens RN Incision 06/10/16; 1235; wrist; LDA not present upon assessment; 09/26/18; 0903 06/10/16 1235 by Zachary Moreno RN 09/26/18 0903 by Belinda Duran, RN documented in this encounter Social History [...] OR Notes * Anesthesia Postprocedure Evaluation - Bridget Sotelo MD - 06/10/2016 1:14 PM EST [facility] [place] Department of Anesthesiology Post-procedure Note Patient: Ebonie Sol Procedure Summary Date Anesthesia Start Anesthesia Stop Room / Location 06/10/16 1213 1250 [facility] OR / [facility] Procedure Diagnosis Surgeon Responsible Provider TENDON SHEATH INCISION (TRIGGER FINGER) (WRVU 3.11) (Left Finger) Trigger thumb of left hand (trigger finger, thumb) Laith Diehl MD Herrick, Michael D, MD All Anesthesia Providers: Anesthesiologist: Bridget Sotelo MD RETIREMENT BENEFITS SPECIALIST: Nona Sarabia CRNA Last (1hr) Vitals: BP 112/81 (06/10/16 1251) Temp 37.2 ??C (99 ??F) (06/10/16 1251) Pulse 89 (06/10/16 1251) Resp SpO2 95 % (06/10/16 1251) Patient Location: PACU/[facility] Level of Consciousness: Awake and Alert Pain Management: Satisfactory Analgesia PONV: None Cardiovascular Status: Hemodynamically Stable Respiratory Status: Stable Respiratory Status Postoperative Fluid Status: Intravascular EUvolemia Possible Anesthetic Complications: NONE apparent at time of evaluation Final Primary Anesthesia Type: MAC (The anesthetic type performed was the same as planned.) Comments: Happy with her anesthesia care BRIDGET SOTELO MD * Anesthesia Preprocedure Evaluation - Bridget Sotelo MD - 06/10/2016 11:34 AM EST Pre-Anesthesia Evaluation for: Ebonie Sol a 61 y.o. female. Procedure(s): TENDON SHEATH INCISION (TRIGGER [...] CGMS. Diagnosed at age 7 Past Medical History Diagnosis Date ??? Asthma ??? GERD (gastroesophageal reflux disease) ??? Hypertension ??? Median nerve injury ??? Type 1 diabetes Past Surgical History Procedure Laterality Date ??? Carpal tunnel release Right complicated by median nerve injury ??? section x2 ??? Pilonidal cyst excision ??? Pro wrist arthroscop, release xvers lig Left 06/16/2015 ENDOSCOPY WRIST W/ RELEASE TRANSVERSE CARPAL LIGAMENT performed by Laith Diehl MD at [facility] Social History Substance Use Topics ??? Smoking status: Former Smoker Types: Cigarettes Quit date: 02/16/1979 ??? Smokeless tobacco: Never Used ??? Alcohol use Yes Comment: 3/week History Drug Use No Allergies Allergen Reactions ??? Penicillins Hives ??? Prochlorperazine Medications: MAR and/or home medications have been reviewed. Physical Exam: There were no vitals filed for this visit. There is no height or weight on file to calculate BMI. Airway Assessment: Mallampati: II TM distance: >3 FB Neck ROM: full Cardiovascular Assessment: cardiovascular exam normal Pulmonary Assessment: pulmonary exam normal Dental Assessment: - normal exam Misc Assessment: IV access: Peripheral line Anesthesia Plan: ASA 3 MAC, with a(n) intravenous induction 61 yo presents for left trigger finer Hx HTN DM 1 (well controlled with insulin pump) BS 118, plans to shut off pump prior to OR Asthma Did well with deep MAC for CTR 06/16/15, had previous poor experience with light mac, requests deepMAC today Risks and benefits of deep MAC with general anesthesia back-up discussed All questions answered BRIDGET SOTELO MD Region - Other Informed Consent: Anesthetic plan and risks discussed with patient. Plan discussed with RETIREMENT BENEFITS SPECIALIST. PAT Staff Note documented in this encounter Miscellaneous Notes * Addendum Note - Nona Sarabia CRNA - 06/10/2016 2:59 PM EST Addendum created 06/10/16 2141 by Nona Sarabia CRNA Anesthesia Event edited, Anesthesia Intra Flowsheets edited, Anesthesia Intra LDAs edited, Anesthesia Intra Meds edited, LDA properties accepted, Order sets accessed, Patient device removed, Procedure Event Log accessed documented in this encounter Plan of Treatment Upcoming Encounters Date Type Department Care Team (Late st Contact Info) Description 06/05/2024 10:15 AM EST Office [place] [address] Namita Bansal MD [facility] [place] [address] documented as of this encounter Goals Goal [...] Action Action Date Dose Rate Site clindamycin (CLEOCIN) 600 mg/50 mL infusion 1 dose, Starting on Kelly 06/10/16 at 1203, Until Kelly 06/10/16 at 1224, BRIDGET CASTILLO: cabinet override Given 06/10/2016 12:24 PM EST 600 mg dexamethasone (DECADRON) injection PRN, Starting on Kelly 06/10/16 at 1235, Until Kelly 06/10/16 at 1254, Anesthesia Intra-op, Routine Given 06/10/2016 12:35 PM EST 4 mg fentaNYL 50 mcg/mL multi-dose injection PRN, Starting on Klely 06/10/16 at 1218, Until Kelly 06/10/16 at 1254, Pain, Anesthesia Intra-op, Routine Given 06/10/2016 12:29 PM EST 50 mcg Given 06/10/2016 12:18 PM EST 50 mcg ketorolac (TORADOL) injection PRN, Starting on Kelly 06/10/16 at 1238, Until Kelly 06/10/16 at 1254, Pain, Anesthesia Intra-op, Routine Given 06/10/2016 12:38 PM EST 15 mg lactated ringers infusion 1,000 mL 1,000 mL, at 100 mL/hr, Intravenous, CONTINUOUS, Starting on Kelly 06/10/16 at 1215, Until Kelly 06/10/16 at 1338, Day of Surgery (Day of Procedure) New Bag 06/10/2016 12:13 PM EST midazolam (PF) (VERSED) 1 mg/mL multi-dose injection PRN, Starting on Kelly 06/10/16 at 1213, Until Kelly 06/10/16 at 1254, Sleep, Anesthesia Intra-op, Routine Given 06/10/2016 12:13 PM EST 2 mg ondansetron (ZOFRAN) injection PRN, Starting on Kelly 06/10/16 at 1235, Until Kelly 06/10/16 at 1254, Nausea, Anesthesia Intra-op, Routine Given 06/10/2016 12:35 PM EST 4 mg propofol (DIPRIVAN) infusion CONTINUOUS PRN, Starting on Kelly 06/10/16 at 1220, Until Kelly 06/10/16 at 1254, Anesthesia Intra-op, Routine New Bag 06/10/2016 12:20 PM EST 150 mcg/kg/min 57.2 mL/hr documented in this encounter Care Teams Metal Polisher Relationship Specialty Start Date End Date Mitchell Yap MD [address] [place] [address] PCP - General 05/19/10 07/17/23 documented as of this encounter
--- OUTSIDE RECORDS SUMMARY | 2024-04-18 13:17 | XMS_ITS | Encounter Summary ---
[place] [address] Care Team Providers Care Substitute Bus Driver Name Role Phone Mitchell Yap MD Primary Care Provider [phone] Reason for Visit * Reason Comments Diabetes Encounter Details Date Type Department Care Team (Latest Contact Info) Description 08/19/2015 9:00 AM EST Office Visit [place] [address] Ebonie Betancourt, [facility] [place] [address] Diabetes mellitus type 1, uncomplicated Social History [...] Sign Reading Time Taken Comments Blood Pressure 136/57 08/19/2015 9:04 AM EST Pulse 93 08/19/2015 9:04 AM EST had c offee. Temperature - - Respiratory Rate - - Oxygen Saturation - - Inhaled Oxygen Concentration - - Weight 62.6 kg (138 lb) 08/19/2015 9:04 AM EST Height 149.9 cm (4' 11) 08/19/2015 9:04 AM EST Body Mass Index 27.87 08/19/2015 9:04 AM EST documented in this encounter Progress Notes * Ebonie Betancourt LD - 08/19/2015 3:57 PM EST Pt seen today for Type 1 Diabetes with hypoglycemia unawareness to trouble shoot possible allergic reaction with MiniMed Enlite CGM. Cathy from [employer] is present for the visit. Ebonie wants to get back on sensor but has been having allergic reactions to sensor as documented inpast notes. Bard and IV 3000 on back of tape last time and still had reaction. Pt wore device on abdomen. Cathy from [employer] present for visit and suggests 1% over the counter cortisone before placing thesensor. Other option is over the counter Flonase topically on skin before placing sensor.. When using these methods apply and let dry ~10 minutes and then apply the sensor. Avoid over tape this time to allow the skin to breathe. Abby Oliverdiane suggested to lower basals, however she did not do this. Download Interpretation: Lows happen all throughout the day- not seeing a patter Pt is using 54% basal On MiniMed 523 insulin pump. MN-5am= 0.55 5am= 0.6 and she did change this to 4am=0.575 10:00= 0.45 17:00 = 0.55 18:00= 0.475 21:00= 0.45 Pt needs to find transmitter at home and check to see if it still works. If it doesn???t work pt will need to order a new transmitter. Cathy will send pt some new sensors as pts are . Pt also needs insertion device. Call [employer] to order new transmitter Pt will come back on September 08 for a class to insert the new sensor. Alternate date is September 17 to come in. If pump not downloading check date on pump it might be set incorrectly. documented in this encounter Plan of Treatment Upcoming Encounters Date Type Department Care Team (Late st Contact Info) Description 06/05/2024 10:15 AM EST Office Visit [place] [address] Namita Bansal MD [facility] [place] [address] documented as of this encounter Goals Goal Patient Goal Type Associated Problems Recent Progress Patient-Stated? Author Exercise 3x per week (30 min per time) Exercise No Keila Arango, CHRISTIANO documented as of this encounter Visit Diagnoses Diagnosis Diabetes mellitus type 1, uncomplicated Type I (juvenile type) diabetes mellitus without mention of complication, not stated as uncontrolled documented in this encounter Care Teams Substitute Bus Driver Relationship Specialty Start Date End Date Mitchell Yap MD [address] [place] [address] PCP - General 05/19/10 07/17/23 documented as of this encounter
--- OUTSIDE RECORDS SUMMARY | 2024-04-18 13:17 | XMS_ITS | Encounter Summary ---
Author Organization [facility] [place] [address] Care Team Providers Care Knotting Machine Operator Name Role Phone Mitchell Yap MD Primary Care Provider [phone] Reason for Visit * Auth/Cert - Closed Specialty Diagnoses / Procedures Referred By Malka vera Referred To Contact Diagnoses Left carpal tunnel syndrome Procedures ENDOSCOPY WRIST W/ RELEASE TRANSVERSE CARPAL LIGAMENT Referral ID Status Reason Start Date Expiration Date Visits Re quested Visits Authorized [id number] Closed 1 1 Encounter Details Date Type Department Care Team (Latest Contact Info) Description 06/16/2015 6:13 AM EST - 06/16/2015 8:05 AM [facility] Hospital Encounter [place] [phone] Jean Diehl MD [facility] [place] [address] Carpal tunnel syndrome on left Discharge Disposition: Home Social History Tobacco Use [...] on them. You can also take an jmni-zvl-gemamld stool softener, colace or senna, to facilitate [...] unsteady on your feet. Call your doctor (#[phone]) if: ?? You have a fever > 101.5 or experience chills Increased discharge from the incision Any redness or swelling around the incision Increased pain or change in the pain that is not controlled by your pain medications WHERE TO CALL WITH QUESTIONS [facility] Ask for the resident corrosion control technician for your provider [facility] [...] 1 mg Kit 08/06/2014 017 Diabetic Supplies, XZERES. Misc Form faxed to [facility] [...] Diehl MD - 06/16/2015 7:[address] [facility] [place] Patient Name: Ebonie Sol : [id number] MR#: [id number] Case Date: 06/16/2015 Surgeon: Surgeon(s) and Role: [...] A preoperative time-out was performed as per [facility] protocol. 8 mL of 1% lidocaine with [...] Operative Note Patient Name: Ebonie Sol : [id number] MR#: [id number] Case Date: 06/16/2015 Surgeon: Surgeon(s) and Role: [...] 10:15 AM EST Office [place] [address] Namita Bansal MD [facility] [place] [address] documented as of this encounter Goals Goal [...] 6:45 AM EST 1,000 mLs 100 mL/hr documented in [...] [id number] (Anesthesia Volume Adjustment - Provider: Teresa iLno CRNA) PRN Medication Order 06/14/2015 06/15/2015 06/16/2015 [...] 8ml) documented in this encounter Care Teams Knotting Machine Operator Relationship Specialty Start Date End Date Mitchell Yap MD [address] [place] [address] PCP - General 05/19/10 07/17/23 documented as of this encounter
--- OUTSIDE RECORDS SUMMARY | 2024-04-18 13:17 | XMS_ITS | Encounter Summary ---
[place] [address] Care Team Providers Care Carbon Capture Power Plant Engineer Name Role Phone Mitchell Yap MD Primary Care Provider [phone] Reason for Visit * Reason Onset Date Comments Medication Refill 01/05/2016 Encounter Details Date Type Department Care Team (Late st Contact Info) Description 01/05/2016 [place] [address] Dyan Hart, RN Social History Tobacco Use Types Packs/Day [...] 10:15 AM EST Office [place] [id number] Namita Bansal MD [facility] [place] [address] documented as of this encounter Goals Goal Patient Goal Type Associated Problems Recent Progress Patient-Stated? Author Exercise 3x per week (30 min per time) Exercise No Keila Arango, CDE documented as of this encounter Visit Diagnoses Not on filedocumented in this encounter Care Teams Carbon Capture Power Plant Engineer Relationship Specialty Start Date End Date Mitchell Yap MD [address] [place] [id number] PCP - General 05/19/10 07/17/23 documented as of this encounter
--- OUTSIDE RECORDS SUMMARY | 2024-04-18 13:17 | XMS_ITS | Encounter Summary ---
[place] [address] Care Team Providers Care Tank Farm Operator Name Role Phone Mitchell Yap MD Primary Care Provider [phone] Reason for Visit * Reason Comments Diabetes Encounter Details Date Type Department Care Team (Latest Contact Info) Description 04/23/2015 9:30 AM EDT Office Visit [place] [address] Abby Campbell, [facility] [place] [address] Diabetes mellitus type 1, uncomplicated Social History [...] Sign Reading Time Taken Comments Blood Pressure 144/75 04/23/2015 10:38 AM EDT Pulse 81 04/23/2015 10:38 AM EDT Temperature - - Respiratory Rate - - Oxygen Saturation - - Inhaled Oxygen Concentration - - Weight 61.4 kg (135 lb 6.4 oz) 04/23/2015 10:38 AM EDT Height 149.9 cm (4' 11) 04/23/2015 10:38 AM EDT Body Mass Index 27.35 04/23/2015 10:38 AM EDT documented in this encounter Patient Instructions * Patient Instructions* Abby Campbell APRN - 04/23/2015 11:05 AM EDT Check if you have had prevnar 13 Respite at least every 6 months to visit family! documented in this encounter Progress Notes * Abby Campbell APRN - 04/23/2015 12:02 PM EDT DATE OF VISIT: 04/23/2015. REASON FOR VISIT: Follow up type 1 DM in continued good control with hypoglycemia unawareness. BRIEF HISTORY: Presents and states she had a low glucose level 64 this morning when she woke up, which is frustrating because she has so many things to get done before she can drive to the appointment. DATE OF DIAGNOSIS OF DIABETES: 1957. COMPLICATIONS: None. Has hypoglycemia unawareness. SBGM: 10 to 15 times a day. Reason for higher frequency testing is to avoid severe hypoglycemia. She suspends the pump when she has physical activity or when she has a low glucose level. DIABETES REGIMEN: MiniMed Revel 523. Basal rates: 12 a.m. 0.55, 5 a.m. 0.6, 10 a.m. 0.45, 5 p.m. 0.55, 6 p.m. 0.475, 9 p.m. 0.45. Total basal 12.25. Active insulin 3 hours. COMPLICATIONS: None. 24-HOUR MEAL PLAN: Has appointment with ALVAREZ ALVARADO later this a.m. IMMUNIZATION: Update. Plans to get flu vaccine in April at PCP office when her father has an appointment. 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 At home is her 95-year-old father and a very supportive , enjoys time with her grandson in [place], which is not too often. Eyes: No recent vision changes. No recent headaches or chest pain or shortness of breath. No recent GI symptoms. Appetite is okay. Has been attempting and is successful with weight loss. Sleep Pattern: Varies. Extremities are okay. PHYSICAL EXAM: Appearance: She appears in excellent health. Weight 135 pounds, she has lost 14 pounds in the past year. Blood pressure 144/75. Eyes: No retinopathy with green light exam. Neck: No thyromegaly or lymphadenopathy. Heart: Regular rate and rhythm. No murmurs. Lungs are clear to auscultation. Feet: Skin is normal. Pulses are normal. Neuro: Normal sensation to 10 g of pressure. Left first toe is prone to having an ingrown nail that she is cautious with. LABORATORY DATA: Hemoglobin A1c 7.2%, previous was 7.6%. IMPRESSION AND PLAN: Diabetes mellitus type 1 in good overall control with hypoglycemia unawareness. Will lower basal rates at midnight to 0.5 and at 5 a.m. to 0.55 to get fasting glucose level consistently above 90. Requested refill of insulin. which was done and sent to her pharmacy. Return to office in six months. Will check hemoglobin A1c, HDL, VLDL, creatinine, TSH and microalbumin. Recent Results (from the past 72 hour(s)) Hemoglobin A1c Result Value Ref Range Hemoglobin A1C 7.2 (H) 4.3 - 5.6 % Est Avg Gluc 160 mg/dL documented in this encounter Plan of Treatment Upcoming Encounters Date Type Department Care Team (Late st Contact Info) Description 06/05/2024 10:15 AM EST Office Visit [place] [address] Namita Bansal MD [facility] [place] [address] documented as of this encounter Goals Goal Patient Goal Type Associated Problems Recent Progress Patient-Stated? Author Exercise 3x per week (30 min per time) Exercise No Keila Arango CDE documented as of this encounter Results * Microalbumin, urine, random (11/05/2015 11:17 AM EDT) Creatinine, Urine 92 mg/dL [facility] Albumin, Urine <3.0 mg/L [facility] Albumin / Creatinin Ratio, Urine <3 mcg/mg Cr [facility] Comment: Reference Range* Random collection (mcg/mg creatinine) Normal ?<30 Microalbuminuria ?? 30 - 300 Clinical Albuminuria ?? >300 *Canadian Diabetes Association. Diabetic Nephropathy. Diabetes Care 1997;(Suppl 1):S24-S27 Exercise within 24 hour, infection, fever, CHF, marked hyperglycemia, and marked hypertension may elevate urinary albumin excretion over baseline values. Urine specimen (specimen) 11/05/2015 11:17 AM EDT 11/05/2015 11:33 AM EDT Narrative Resulting Agency Comment Spec In Lab Torsten Peguero MD URINE ORDERABLES [facility] [place] [address] * (ABNORMAL) LDL Cholesterol, Direct (11/05/2015 11:10 AM EDT) LDL Cholesterol, Direct 104(H) <=99 mg/dL [facility] Comment: The National Cholesterol Education Program (NCEP) has set the following guidelines for LDL Cholesterol: Reference range: ?? Optimal: ?<100 mg/dL ?? Near Optimal/Above Optimal: ?? 100-129 mg/dL ?? Borderline high: ?130-159 mg/dL ?? High: ? 160-189 mg/dL ?? Very high: ?>rf=142 mg/dL SUJATA 2001: 285(19):0638-9613 Blood specimen (specimen) 11/05/2015 11:10 AM EDT 11/05/2015 11:20 AM EDT Narrative Resulting Agency Comment Spec In Lab Torsten Peguero MD CHEMISTRY ORDERABLES Performing Organization Address [facility] de Phone Number [facility] [place] [address] * HDL/Cholesterol Profile (11/05/2015 11:10 AM EDT) Cholesterol, Total 183 <=199 mg/dL [facility] Comment: Recommendations of the NCEP Adult Treatment Panel for the following risk cutoff thresholds for the [place] population: Desirable: <200 mg/dL Borderline High: 200-239 mg/dL High: > or = 240 mg/dL HDL Cholesterol 76 >=40 mg/dL [facility] Comment: Reference range: ??Low HDL: ?? < 40 mg/dL ??Normal: ?40-60 mg/dL ??Desirable: > 60 mg/dL SUJATA 2001; 285(19):8569-6047 Cholesterol/HDL Ratio 2.4 ratio [facility] Comment: A Cholesterol to HDL ratio below 4:1 is desirable. ??Studies suggest that increased CAD risk occurs at ratios above 5 for females and above 6 for men. ? Canadian Heart Association ??(http://www.americanheart.org) ? Ani Int Med, 1994; 121:641 ? AM J Med, 1998; 105(1A):48S Blood specimen (specimen) 11/05/2015 11:10 AM EDT 11/05/2015 11:20 AM EDT Narrative Resulting Agency Comment Spec In Lab Torsten Peguero MD CHEMISTRY ORDERABLES Performing Organization Address [facility] Co de Phone Number [facility] [place] [address] * TSH (11/05/2015 11:10 AM EDT) Thyroid Stimulating Hormone 1.39 0.27 - 4.20 mcIU/mL [facility] Blood specimen (specimen) 11/05/2015 11:10 AM EDT 11/05/2015 11:20 AM EDT Narrative Resulting Agency Comment Spec In Lab Torsten Peguero MD CHEMISTRY ORDERABLES [facility] [place] [address] * (ABNORMAL) Hemoglobin A1c (11/05/2015 11:10 AM EDT) Hemoglobin A1c 7.0(H) 4.3 - 5.6 % [facility] Comment: Reference Range: 4.3 - [...] Mellitus, Diabetes Care 2013; 36: Suppl. 1, S67-63 Estimated Average Glucose 154 mg/dL [facility] Comment: eAG equivalents for HbA1c percentages: HbA1c(%) ?eAG(mg/dL) 6.0 ?126 6.5 ?140 7.0 ?154 7.5 ?169 8.0 ?183 8.5 ?197 9.0 ?212 9.5 ?226 10.0 ? 240 Limitations: The eAG calculation has not been validated on women, individuals below 18 years old and above 70 years old, and individuals with hemoglobinopathies. Additional resources are available on the ADA website: [email or web address] Sam COPELAND, Leatha J, Blanca R, et al. ??Translating the A1C assay into estimated average glucose values. ??Diabetes Care 2008:31(8):3244-7492. Blood specimen (specimen) 11/05/2015 11:10 AM EDT 11/05/2015 11:20 AM EDT Narrative Resulting Agency Comment Spec In Lab Torsten Peguero MD CHEMISTRY ORDERABLES Performing Organization Address [facility] Co de Phone Number [facility] [place] [address] * Creatinine (11/05/2015 11:10 AM EDT) Creatinine 0.70 0.70 - 1.20 mg/dL [facility] Comment: Please note that the pediatric reference intervals supplied above were not validated at [facility]. Results from pediatric patients should be interpreted in conjunction to the patient's age, height and muscle mass. Est Glomerular Filtration Rate >60 >=60 [facility] Comment: This estimated GFR (eGFR) value [...] the following links into your internet browser. [email or web address] Blood specimen (specimen) 11/05/2015 11:10 AM EDT 11/05/2015 11:20 AM EDT Narrative Resulting Agency Comment Spec In Lab Torsten Peguero MD CHEMISTRY ORDERABLES Performing Organization Address [facility] Co de Phone Number [facility] [place] [address] documented in this encounter Visit Diagnoses Diagnosis Diabetes mellitus type 1, uncomplicated Type I (juvenile type) diabetes mellitus without mention of complication, not stated as uncontrolled documented in this encounter Care Teams Tank Farm Operator Relationship Specialty Start Date End Date Mitchell Yap MD [address] [place] [address] PCP - General 05/19/10 07/17/23 documented as of this encounter
--- OUTSIDE RECORDS SUMMARY | 2024-04-18 13:17 | XMS_ITS | Encounter Summary ---
Author Organization [facility] [place] [address] Care Team Providers Care Metal Mold Dresser Name Role Phone Mitchell Yap MD Primary Care Provider [phone] Reason for Visit * Reason Onset Date Comments Medication Refill 08/21/2014 Encounter Details Date Type Department Care Team (Late st Contact Info) Description 08/21/2014 [place]ill [place] [phone] Radha Miller MD [facility] [place] [address] Social History Tobacco Use Types Packs/Day Years Used Date Smoking Tobacco: Former Cigarettes Q uit: 02/16/1979 Smokeless Tobacco: Never Sex and Gender Information Value Date Recorded Sex Assigned at Female 11/02/2020 3:40 PM EDT Gender Identity Female 11/02/2020 3:40 PM EDT Sexual Orientation Straight 11/02/2020 3: 40 PM EDT documented as of this encounter Plan of Treatment Upcoming Encounters Date Type Department Care Team (Late st Contact Info) Description 06/05/2024 10:15 AM EST Office [place] [phone] Namita Bansal MD [facility] [place] [address] documented as of this encounter Goals Goal Patient Goal Type Associated Problems Recent Progress Patient-Stated? Author Exercise 3x per week (30 min per time) Exercise No Keila Arango, CDE documented as of this encounter Visit Diagnoses Not on filedocumented in this encounter Care Teams Metal Mold Dresser Relationship Specialty Start Date End Date Mitchell Yap MD [address] [place] [id number] PCP - General 05/19/10 07/17/23 documented as of this encounter
--- OUTSIDE RECORDS SUMMARY | 2024-04-18 13:17 | XMS_ITS | Encounter Summary ---
Author Organization [facility] [place] [address] Care Team Providers Care Special Forces Warrant Officer Name Role Phone Mitchell Yap MD Primary Care Provider [phone] Reason for Visit * Auth/Cert Specialty Diagnoses / Procedures Referred By Malka vera Referred To Contact Diagnoses trigger finger, thumb Procedures PRO INCISE FINGER TENDON SHEATH TENDON SHEATH INCISION (TRIGGER FINGER) Referral ID Status Reason Start Date Expiration Date Visits Re quested Visits Authorized [id number] 1 1 Encounter Details Date Type Department Care Team (Late st Contact Info) Description 06/10/2016 1:00 PM EST - 06/10/2016 1:45 PM EST Surgery [place] [id number] Jean Diehl MD [facility] [place] [address] TENDON SHEATH INCISION (TRIGGER FINGER) (WRVU 3.11) [...] Sign Reading Time Taken Comments Blood Pressure 112/81 06/10/2016 12:51 PM EST Pulse 89 06/10/2016 12:51 PM EST Temperature 37.2 ??C (99 ??F) 06/10/2016 12:51 PM EST Respiratory Rate 20 06/10/2016 11:51 AM EST Oxygen Saturation 95% 06/10/2016 12:51 PM EST Inhaled Oxygen Concentration - - Weight 63.5 kg (140 lb) 06/10/2016 11:51 AM EST Height 149.9 cm (4' 11) 06/10/2016 11:51 AM EST Body Mass Index 28.28 06/10/2016 11:51 AM EST documented in this encounter Discharge Instructions * Discharge Instructions* Dominga Shukla - 06/10/2016 11:00 AM EST Orthopaedic Hand Surgery Same Day Discharge [...] your first postoperative visit. Ice and elevation ?? Some swelling is expected after surgery. Ice and elevation are the best remedies to reduce swelling [...] During clinic hours M-F 8-4:30 please call [phone] If it is after 5:00PM on a weekday or a weekend and it is of an urgent nature please call [phone] and ask for the on-call orthopaedic resident. [...] Future Appointments Date Time Provider Department Center 06/30/2016 3:10 PM Jean Diehl MD [facility] 11/09/2016 12:30 PM [facility] [address] [facility] 11/09/2016 1:30 PM Abby Campbell APRN [facility] 11/23/2016 1:00 PM Jenna Chandler MD [facility] documented in this encounter Medications at Time of Discharge Medication Sig Dispensed Refills Start Date End Date Diabetic Supplies, Miscellan. [facility] [place] faxed to [facility] diabetes for insulin pump supplies 1 each 3 01/05/2016 multivitamin with minerals (THERA-M) 9-0.4 mg Tablet Take 1 tablet by mouth daily. lisinopril (PRINIVIL;ZESTRIL) 20 mg Tablet Take 1 tablet by mouth daily. 30 tablet 09/25/2014 traMADol (ULTRAM) 50 mg Tablet Take 1 tablet by mouth every 6 hours as needed for Pain. 10 tablet 06/10/2016 06/30/2016 Diabetic Supplies, Miscellan. [facility] PWO faxed to [facility] 100 each 12 06/06/2016 06/14/2016 cholecalciferol, Vitamin D3, 1,000 unit Capsule Take 1,000 Units by mouth daily. 05/22/2018 insulin lispro (HUMALOG) Solution Inject 40-50 Units subcutaneously continuous. 40-50 units continuous via pump, SQ, continuous 50 mL 3 10/24/2015 11/09/2016 blood sugar diagnostic strips (ONETOUCH ULTRA TEST) Strip use to check blood sugar 8x/daily 800 each 3 10/24/2015 11/09/2016 GLUCAGON EMERGENCY KIT, HUMAN, 1 mg Kit 08/06/2014 017 documented as of this encounter Progress Notes * Abby Stephens RN - 06/10/2016 1:20 PM EST Discharge instructions and medications reviewed with patient and spouse, Issa. All questions answered and written copy sent home with patient. documented in this encounter H&P Notes * Jean Diehl MD - 06/10/2016 12:02 PM EST Patient Name: Ebonie Sol Patient Age: 61 y.o. Birthdate: 1955 Admit date: 06/10/2016 Attending Physician: Jean Diehl MD I interviewed and examined Ebonie Sol. There have been no apparent interval changes in her health status since the most recent history and physical was done. JEAN DIEHL MD * Jean Diehl MD - 06/10/2016 12:01 PM EST Patient Name: Ebonie Sol Patient Age: 61 y.o. Birthdate: 1955 Admit date: 06/10/2016 Attending Physician: Jean Diehl MD Please see H&P note for visit documentation. * Dominga Shukla - 06/10/2016 12:01 PM EST Patient Name: Ebonie Sol Patient Age: 61 y.o. Birthdate: 1955 Admit date: 06/10/2016 Attending Physician: Jean Diehl MD PRE-OPERATIVE HISTORY AND PHYSICAL for ADMISSION, OBSERVATION OR PROCEDURE Date of : 1955 Age: 61 y.o. PCP: Mitchell Yap MD Presenting Diagnosis/Chief Complaint: No chief complaint on file. History of Present Illness: Ebonie Sol is a 61 y.o. female who presents for pre-operative examination for L trigger thumb.Please see Dr. Diehl's preop clinic note for full details of the patient's specific problem. PMHx: Patient Active Problem List Diagnosis Code ??? CIS - type 1 DM ??? CIS - Entered not Verified ??? Hypertension I10 ??? Carpal tunnel syndrome on left G56.02 ??? Hypoglycemia unawareness in type 1 diabetes mellitus E10.649 ??? Trigger thumb of left hand M65.312 Past Medical History Diagnosis Date ??? Asthma [...] LIGAMENT performed by Jean Diehl MD at [facility] Home Medications: Prescriptions Prior to Admission Medication Sig Dispense Refill Last Dose ??? cholecalciferol, Vitamin D3, 1,000 unit Capsule Take 1,000 Units by mouth daily. 06/09/2016 at Unknown time ??? insulin lispro (HUMALOG) Solution Inject 40-50 Units subcutaneously continuous. 40-50 units continuous via pump, SQ, continuous 50 mL 3 06/09/2016 at Unknown time ??? blood sugar diagnostic strips (ONETOUCH ULTRA TEST) Strip use to check blood sugar 8x/daily 800each 3 06/09/2016 at Unknown time ??? multivitamin with minerals (THERA-M) 9-0.4 mg Tablet Take 1 tablet by mouth daily. 06/09/2016 at Unknown time ??? lisinopril (PRINIVIL;ZESTRIL) 20 mg Tablet Take 1 tablet by mouth daily. 30 tablet 06/09/2016 at Unknown time ??? Diabetic Supplies, Miscellan. [facility] faxed to [facility] 100 each 12 ??? Diabetic Supplies, Miscellan. [facility] Form faxed to [facility] diabetes for insulin pump supplies 1 each 3 Taking at Unknown time ??? GLUCAGON EMERGENCY KIT, HUMAN, 1 mg Kit Taking at Unknown time Allergies: Allergies Allergen Reactions ??? Penicillins Hives ??? Codeine Nausea And Vomiting ??? Prochlorperazine Family History: Non contributory Family History Problem Relation Age of Onset ??? Cancer Sister Review of Systems: complete 10 system ROS performed with pertinent findings below. A comprehensive review of systems was negative. Physical Exam: VITALS: Temperature Temp: 36.9 ??C (98.4 ??F) Heart Rate Heart Rate: 74 Blood Pressure BP: 142/83 Respiratory Rate Resp: 20 SpO2 SpO2: 98 % General: alert, appears stated age and cooperative Pulmonary: equal, clear breath sounds bilaterally and no crepitus Cardiovascular: Regular rate and rhythm or without murmur or extra heart sounds Assessment and Plan: 61 y.o. female with the above problem, plan to proceed to OR with Dr. Diehl for L trigger thumb release. documented in this encounter Miscellaneous Notes * Op Note - Jean Diehl MD - 06/10/2016 12:03 PM EST [facility] [place] Patient Name: Ebonie Sol : [id number] MR#: [id number] Case Date: 06/10/2016 Surgeon: Surgeon(s) and Role: * Jean Diehl MD - Primary * Dominga Shukla MD PREOPERATIVE DIAGNOSIS: left trigger thumb. POSTOPERATIVE DIAGNOSIS: left trigger thumb. PROCEDURE PERFORMED: A1 jeannette release, left thumb. ANESTHESIA: MAC OPERATIVE INDICATION: The patient is a 61 y.o.-year-old female with chronic triggering and locking of the A1 jeannette level of her left thumb. She was brought to the operating room for A1 jeannette release of her left thumb. SUMMARY OF PROCEDURE: After 600 mg of intravenous clindamycin was administered, the patient's left upper extremity was prepped with a Hibiclens scrub and Chloraprep. Her left arm was draped in a sterile fashion. A preoperative time- out was performed as per [facility] [place]. 3 mL of 1% lidocaine with epinephrine buffered with sodium bicarbonate was then injected subcutaneously over the A1 jeannette level of her left thumb. The patient's left arm was exsanguinated with an Esmarch bandage and a brachialtourniquet was inflated to 250 mmHg. A transverse incision was made over the proximal digital flexion crease of her left thumb. Subcutaneous spreading was performed in a blunt fashion in the palmar midline exposing the A1 jeannette of the left thumb. Great care was taken to avoid injury to the digital neurovascular bundles. Under direct vision, the A1 jeannette was sharply transected over its entire course. The FPL tendon was mobilized and found to be free of adhesions. The incision site was copiously irrigated. The skin was closed with4-0 nylon suture. A sterile soft dressing was applied. The tourniquet then released with a tourniquet time of 9 minutes. All digits became pink and warm with brisk capillary refill. She was then asked to move her leftthumb, and no evidence of triggering was seen. She was then transferred to the recovery room in stable condition. Estimated blood loss was minimal. IV replacement was 500 mL of crystalloid. She tolerated the procedure well without apparent complications. Attestation: Case Date: 06/10/2016 I was present and I participated during the entire procedure. JEAN DIEHL MD 06/10/2016 * Brief Op Note - Jean Diehl MD - 06/10/2016 12:02 PM EST Brief Operative Note Patient Name: Ebonie Sol : [id number] MR#: [id number] Case Date: 06/10/2016 Surgeon: Surgeon(s) and Role: * Jean Diehl MD - Primary * Dominga Shukla MD Preoperative diagnosis: Left trigger thumb Postoperative diagnosis: Left trigger thumb Procedure(s): TENDON SHEATH INCISION (TRIGGER FINGER) (WRVU 3.11) Anesthesia: MAC Complications: None Fluids: 500cc crystalloid Estimated Blood Loss: None Drains: None Disposition: aroused from sedation, and taken to the recovery room in stable condition Condition: doing well without problems Attestation: Case Date: 06/10/2016 I was present and I participated during the entire procedure. (Please see the Surgical Encounter Summary for any Implant and Specimen details pertinent to this patient.) documented in this encounter Plan of Treatment Upcoming Encounters Date Type Department Care Team (Late st Contact Info) Description 06/05/2024 10:15 AM EST Office [place] [address] Namita Bansal MD [facility] [place] [address] documented as of this encounter Goals Goal Patient Goal Type Associated Problems Recent Progress Patient-Stated? Author Exercise 3x per week (30 min per time) Exercise Keila Espinoza CDE documented as of this encounter Procedures Procedure Name Priority Date/Time Associated Diagnosis Comments TENDON SHEATH INCISION (TRIGGER FINGER) (WRVU 3.11) 06/10/2016 12:17 PM EST Trigger thumb of left hand documented in this encounter Visit Diagnoses Diagnosis Trigger thumb of left hand Trigger finger (acquired) Trigger thumb of left hand Trigger finger (acquired) documented in this encounter Administered Medications Inactive Administered Medications - up to 3 most recent administrations Medication Order MAR Action Action Date Dose Rate Site acetaminophen (TYLENOL) tablet 1,000 mg 1,000 mg, Oral, ONCE, 1 dose, On Kelly 06/10/16 at 1215, Maximum dose of acetaminophen is 4000 mg from all sources in 24 hours., Day of Surgery (Day of Procedure), Routine Given 06/10/2016 12:05 PM EST 1,000 mg gabapentin (NEURONTIN) capsule 300 mg 300 mg, Oral, ONCE, 1 dose, On Kelly 06/10/16 at 1215, Day of Surgery (Day of Procedure), Routine Given 06/10/2016 12:05 PM EST 300 mg lidocaine-EPINEPHrine 1 %-1:100,000 injection ONCE PRN, Starting on Kelly 06/10/16 at 1236, Until Kelly 06/10/16 at 1540, Intra-Operative (Intra-Procedure), Routine Given 06/10/2016 12:36 PM EST 3 mLs 19- Surgical Site sodium bicarbonate 8.4 % (1 mEq/mL) injection ONCE PRN, Starting on Kelly 06/10/16 at 1236, Until Kelly 06/10/16 at 1540, Intra-Operative (Intra-Procedure), Routine Given 06/10/2016 12:36 PM EST 0.3 mEq 19- Surgical Site documented in this encounter Active and Recently Administered Medications Times are shown in EST. Scheduled Medication Order 06/08/2016 06/09/2016 06/10/2016 acetaminophen (TYLENOL) tablet 1,000 mg 1,000 mg, Oral, EVERY 8 HOURS SCHEDULED, First dose on Kelly 06/10/16 at 1400, Until Discontinued, Maximum total acetaminophen dose 4 grams per 24 hours., Recovery (Recovery-Hospital Unit), Routine acetaminophen (TYLENOL) tablet 1,000 mg (COMPLETED) 1,000 mg, Oral, ONCE, 1 dose, On Kelly 06/10/16 at 1215, Maximum dose of acetaminophen is 4000 mg from all sources in 24 hours., Day of Surgery (Day of Procedure), Routine 1205 (Given - Provid er: Bridget Freedman RN) clindamycin (CLEOCIN) 600mg in dextrose 5% 50mL 600 mg, Intravenous, ONCE, 1 dose, On Kelly 06/10/16 at 1230, Administer over 20 Minutes, Perioperative abx, Indication for (Active or Suspected): Prophylaxis 1230 (Due) gabapentin (NEURONTIN) capsule 300 mg (COMPLETED) 300 mg, Oral, ONCE, 1 dose, On Kelly 06/10/16 at 1215, Day of Surgery (Day of Procedure), Routine 1205 (Given - Provid er: Bridget Freedman RN) vancomycin 1 g in 0.9 % sodium chloride 200 mL 1,000 mg (1 g), Intravenous, EVERY 8 HOURS, 1 dose, First dose on Kelly 06/10/16 at 1230, Do not exceed 1 gram/hour. Vancomycin should be administered within 2 hours prior to incision. Re-dose after 8 hours., Day of Surgery (Day of Procedure), Routine, Indication for (Active or Suspected): Prophylaxis 1230 (Due) Continuous Medication Order 06/08/2016 06/09/2016 06/10/2016 lactated ringers infusion 1,000 mL 1,000 mL, at 100 mL/hr, Intravenous, CONTINUOUS, Starting on Kelly 06/10/16 at 1215, Until Kelly 06/10/16 at 1338, Day of Surgery (Day of Procedure) 1213 (New Bag - Prov ider: Lorraine Macdonald CRNA)1253 (Stopped - Provider: Nona Sarabia CRNA) PRN Medication Order 06/08/2016 06/09/2016 06/10/2016 lidocaine (XYLOCAINE) 10 mg/mL (1 %) injection 3 mg 3 mg (0.3 mL), Subcutaneous, ONCE PRN, 1 dose, Starting on Kelly 06/10/16 at 1159, Until Kelly 06/10/16 at 1338, for discomfort with PIV insertion, Day of Surgery (Day of Procedure), Routine lidocaine-EPINEPHrine 1 %-1:100,000 injection (CANCELED) ONCE PRN, Starting on Kelly 06/10/16 at 1236, Until Kelly 16 at 1540, Intra-Operative (Intra-Procedure), Routine 1236 (Given - Provid er: Jean Diehl MD) sodium bicarbonate 8.4 % (1 mEq/mL) injection (CANCELED) ONCE PRN, Starting on Kelly 16 at 1236, Until Kelly 16 at 1540, Intra-Operative (Intra-Procedure), Routine 1236 (Given - Provid er: Jean Diehl MD - Comment: mixed with lidocaine and injected into surgical site preop.) sodium chloride 0.9 % flush 5-20 mL 5-20 mL, Intravenous, EVERY 1 MIN PRN, Starting on Kelly 16 at 1159, Until Kelly 12/16 at 1338, flush, Flush pertains to all indwelling lines. Flush per protocol found in the job aid using the link provided on this medication record., Day of Surgery (Day of Procedure), Routine No Frequency Medication Order 06/08/2016 06/09/2016 06/10/2016 clindamycin (CLEOCIN) 600 mg/50 mL infusion 1 dose, Starting on Kelly 06/10/16 at 1203, Until Kelly 06/10/16 at 1224, BRIDGET FREEDMAN: cabinet override 1224 (Given - Provid er: Lorraine Macdonald, AIDA) documented in this encounter Care Teams Special Forces Warrant Officer Relationship Specialty Start Date End Date Mitchell Yap MD [address] [place] [address] PCP - General 05/19/10 07/17/23 documented as of this encounter
--- OUTSIDE RECORDS SUMMARY | 2024-04-18 13:17 | XMS_ITS | Encounter Summary ---
Author Organization [facility] [place] [address] Care Team Providers Care Burial Vault Setter Name Role Phone Mitchell Yap MD Primary Care Provider [phone] Encounter Details Date Type Department Care Team (Late st Contact Info) Description 04/23/2015 11:00 AM EDT Office [place] [address] Ebonie Betancourt LD [facility] [place] [address] Type 1 diabetes mellitus with diabetic neuropathy Social History Tobacco Use Types Packs/Day Years [...] as of this encounter Progress Notes * Ebonie Betancourt LD - 04/28/2015 2:34 PM EST Diabetes Education and Medical Nutrition Therapy Ebonie has had type 1 diabetes x 53 years with hypoglycemia unawareness. We tried using Bard wipe and [id number] under the CGM transmitter at her last visit but she still had an allergic reaction to the transmitter and also pin-point where the sensor inserts. On MiniMed 523 insulin pump. Downloaded Checking BG 5+ x a day Still waiting 4 - 5 days between infusion set changes. She needs to add cannula fill to set change. Basal rates at midnight, 0.5; at 5 am., 0.55;(Abby lowered these first 2 today) at 10 a.m., 0.45; at 1700, 0.55; at 1800, 0.475; at 2100, 0.425. Total basal 11.725. Basal was 58% of TDD [id number] at midnight, 1:14, at 12:30, 13, at 18:30, 14. Sensitivity 55. Target glucose 100 to 140. She is still having hypoglycemia: 14 episodes in the past 2 weeks spread through the day from 5 am to 11 pm. Active insulin x 3 hours and encouraged her to change this to 4 hours. She may also want to increase insulin to carb ratio to 1:17 and CF to 60 to help prevent hypoglycemia. HbA1c 7.2% today Vitals 04/23/2015 04/02/2015 SYSTOLIC 144 DIASTOLIC 75 PULSE 81 Height (Martiniquais) 4' 11 Height (Metric) 149.9 cm Weight (Martiniquais) 135 lbs 6 oz Weight (Metric) 61.417 kg BODY MASS INDEX 27.33 kg/m2 BSA 1.63 Weight is down 15 more pounds and 24 pounds overall. documented in this encounter Plan of Treatment Upcoming Encounters Date Type Department Care Team (Late st Contact Info) Description 06/05/2024 10:15 AM EST Office [place] [phone] Namita Bansal MD [facility] [place] [address] documented as of this encounter Goals Goal Patient Goal Type Associated Problems Recent Progress Patient-Stated? Author Exercise 3x per week (30 min per time) Exercise No Keila Arango, CDE documented as of this encounter Visit Diagnoses Diagnosis Type 1 diabetes mellitus with diabetic neuropathy Type I (juvenile type) diabetes mellitus with neurological manifestations, not stated as uncontrolled documented in this encounter Care Teams Burial Vault Setter Relationship Specialty Start Date End Date Mitchell Yap MD [address] [place] [address] PCP - General 05/19/10 07/17/23 documented as of this encounter
--- OUTSIDE RECORDS SUMMARY | 2024-04-18 13:17 | XMS_ITS | Encounter Summary ---
Author Organization [facility] [address] Care Team Providers Care Help Desk Support Specialist Name Role Phone Mitchell Yap MD Primary Care Provider [phone] Reason for Visit * Reason Comments Left Wrist Pain cts Left Hand Pain cts Encounter Details Date Type Department Care Team (Late st Contact Info) Description 06/09/2015 3:10 PM EST Office [place] [address] Laith Diehl MD [facility] [place] [address] Carpal tunnel syndrome on left Social History Tobacco Use Types Packs/Day Years [...] Sign Reading Time Taken Comments Blood Pressure 136/64 06/09/2015 3:13 PM EST Pulse 77 06/09/2015 3:13 PM EST Temperature - - Respiratory Rate - - Oxygen Saturation - - Inhaled Oxygen Concentration - - Weight 58.5 kg (129 lb) 06/09/2015 3:13 PM EST s tated Height 149.9 cm (4' 11) 06/09/2015 3:13 PM EST stated Body Mass Index 26.05 06/09/2015 3:13 PM EST documented in this encounter Progress Notes * Laith Diehl MD - 06/09/2015 3:30 PM EST Ebonie Sol returns for evaluation of her left hand. She has EMG proven left carpal tunnel syndrome. She has had a previous right carpal tunnel release done in an open fashion with complication of a median nerve transection. She is very anxious about this happening in the left hand. She does have common nocturnal dysesthesias and daytime numbness in the median nerve distribution digits. She has a positive Phalen's test and a positive Tinel test over the median nerve of the carpal tunnel. She has intact palmar abduction of her thumb with good strength. Diagnosis is EMG proven left carpal tunnel syndrome. She was offered the option of carpal tunnel decompression, which is what she would like to do. I did tell her I would have a low threshold for conversion to an open procedure. She is aware that with surgery there are potential risks and these include but are not limited to infection, neurovascular or tendon injury, incomplete or no relief of neurogenic symptoms, pillar pain, tester operator weakness, and recurrence of her carpal tunnel syndrome. She wishes to be very heavily sedated or asleep for this procedure, and I told her she can address this with her anesthesiologist on the day of the procedure, and I am confident they will address this and make her comfortable. We will see her next week for carpal tunnel release on the left. documented in this encounter Plan of Treatment Upcoming Encounters Date Type Department Care Team (Late st Contact Info) Description 06/05/2024 10:15 AM EST Office [place] [address] Namita Bansal MD [facility] [place] [address] documented as of this encounter Goals Goal Patient Goal Type Associated Problems Recent Progress Patient-Stated? Author Exercise 3x per week (30 min per time) Exercise No Keila Arango, CHRISTIANO documented as of this encounter Visit Diagnoses Diagnosis Carpal tunnel syndrome on left Carpal tunnel syndrome documented in this encounter Care Teams Help Desk Support Specialist Relationship Specialty Start Date End Date Mitchell Yap MD [address] [address] PCP - General 05/19/10 07/17/23 documented as of this encounter
--- OUTSIDE RECORDS SUMMARY | 2024-04-18 13:17 | XMS_ITS | Encounter Summary ---
Author Organization [facility] [place] [address] Care Team Providers Care Set Up Machinist Name Role Phone Mitchell Yap MD Primary Care Provider [phone] Encounter Details Date Type Department Care Team (Late st Contact Info) Description 10/22/2015 Notes Only [place] [address] Ebonie Betancourt LD [facility] [address] Social History Tobacco Use Types Packs/Day Years [...] Progress Notes * Ebonie Betancourt LD - 10/22/2015 10:19 AM EDT Rx sent to [facility] for enlite CGS documented in this encounter Plan of Treatment Upcoming Encounters Date Type Department Care Team (Late st Contact Info) Description 06/05/2024 10:15 AM EST Office Visit [place] [address] Namita Bansal MD [facility] [place] [address] documented as of this encounter Goals Goal Patient Goal Type Associated Problems Recent Progress Patient-Stated? Author Exercise 3x per week (30 min per time) Exercise No Keila Arango, CHRISTIANO documented as of this encounter Visit Diagnoses Not on filedocumented in this encounter Care Teams Set Up Machinist Relationship Specialty Start Date End Date Mitchell Yap MD [address] [place] [address] PCP - General 05/19/10 07/17/23 documented as of this encounter
--- OUTSIDE RECORDS SUMMARY | 2024-04-18 13:17 | XMS_ITS | Encounter Summary ---
[place] [address] Care Team Providers Care Pmo Lead Name Role Phone Mitchell Yap MD Primary Care Provider [phone] Reason for Visit * Reason Onset Date Comments Medication Refill 10/24/2015 Encounter Details Date Type Department Care Team (Late st Contact Info) Description 10/24/2015 [place] [id number] Anyi Arthur, RN Social History Tobacco Use [...] Telephone Encounter - Anyi Arthur RN - 10/24/2015 12:04 PM EDT Ebonie calls in and asks for a refill of her humalog and onetouch ultra test strips documented in this encounter Plan of Treatment Upcoming Encounters Date Type Department Care Team (Late st Contact Info) Description 06/05/2024 10:15 AM EST Office [place] [address] Namita Bansal MD [facility] [place] [address] documented as of this encounter Goals Goal Patient Goal Type Associated Problems Recent Progress Patient-Stated? Author Exercise 3x per week (30 min per time) Exercise No Keila Arango, CHRISTIANO documented as of this encounter Visit Diagnoses Not on filedocumented in this encounter Care Teams Pmo Lead Relationship Specialty Start Date End Date Mitchell Yap MD [address] [place] [address] PCP - General 05/19/10 07/17/23 documented as of this encounter
--- OUTSIDE RECORDS SUMMARY | 2024-04-18 13:17 | XMS_ITS | Encounter Summary ---
[place] [address] Care Team Providers Care Spectrographic Analyst Name Role Phone Mitchell Yap MD Primary Care Provider [phone] Reason for Visit * Auth/Cert - Closed Specialty Diagnoses / Procedures Referred By Malka vera Referred To Contact Diagnoses Left carpal tunnel syndrome Procedures ENDOSCOPY WRIST W/ RELEASE TRANSVERSE CARPAL LIGAMENT Referral ID Status Reason Start Date Expiration Date Visits Re quested Visits Authorized [id number] Closed 1 1 Encounter Details Date Type Department Care Team (Late st Contact Info) Description 06/16/2015 7:14 AM EST Anesthesia Event [facility] [place] [address] Simona Cuellar DO [facility] [address] [place] [address] Gabrielle Eric, DROP MAN [address] [facility] 3B-1 [place] [address] Anesthesia Record Procedure Summary Procedure Name Responsible Anesthesiologist Anesthesia Start Time Anesthesia Stop Time ENDOSCOPY WRIST W/ RELEASE TRANSVERSE CARPAL LIGAMENT (WRVU 6.39) (Left: Wrist) Simona Cuellar DO 06/16/15 0714 06/16/15 0737 Events Date Time Event Comment 06/16/2015 0643 0714 Start 0716 AN Verify 0718 An Start Data 0725 Anesthesia Ready 0730 An Tourn Deflated 5 minutes 0734 an stop data 0737 Recovery or ICU Handoff Deya ent care was transferred to the destination unit staff after review of the patient's medical history, current anesthetic/surgical status and plan, according to the Provider Handoff Checklist. 0737 Stop Meds Name Total Midazolam 2 mg fentaNYL 100 mcg IV Lidocaine 40 mg Ondansetron 4 mg Dexamethasone 4 mg Propofol INF 61.01 mg Dexmedetomidine 4 mcg Ketorolac 15 mg clindamycin (CLEOCIN) 600mg in dextrose 5% 50mL 600 mg lactated ringers infusion 1,000 mL 500 m L * Agents Name O2 * Blood No blood administrations on file. Lines, Drains, and Airways Type Details Placement Removal Incision 06/16/15; wrist; LDA not present upon assessment; 09/26/18; 0903 06/16/15 0000 by Gita Machuca RN 09/26/18 0903 by Belinda Duran, RN (RETIRED) Peripheral IV Line - Single Lumen 06/16/15; 0645; median cubital vein right (antecubital fossa); 20 gauge, 1 in length; Shira Lino SKATE HOP; intradermal injection, tolerated well; 06/16/15; 0754 06/16/15 0645 by Tonya Cintron RN 06/16/15 0754 by Ela Tena, JAYDEN documented in this encounter Social History Tobacco [...] OR Notes * Anesthesia Postprocedure Evaluation - Simona Cuellar DO - 06/16/2015 1:05 PM EST [facility] Department of Anesthesiology Post-procedure Note Patient: Ebonie Sol Procedure Summary Date Anesthesia Start Anesthesia Stop Room / Location 06/16/15 0714 0737 [facility] OR [address] [place] [address] [facility] Procedure Diagnosis Surgeon Responsible Provider ENDOSCOPY WRIST W/ RELEASE TRANSVERSE CARPAL LIGAMENT (Left Wrist) Carpal tunnel syndrome on left Laith Diehl MD Walker, Tacee E, DO (Left carpal tunnel syndrome) Last (1hr) Vitals: BP Temp Pulse Resp SpO2 Patient Location: PACU/SD Level of Consciousness: Awake and Alert Pain Management: Satisfactory Analgesia PONV: None Cardiovascular Status: At Baseline and Hemodynamically Stable Respiratory Status: At Baseline and Room Air Postoperative Fluid Status: Intravascular EUvolemia Possible Anesthetic Complications: NONE apparent at time of evaluation Final Primary Anesthesia Type: MAC (The anesthetic type performed was the same as planned.) Comments: Simona Cuellar DO * Anesthesia Preprocedure Evaluation - Simona Cuellar DO - 05/07/2015 11:46 AM EST Pre-Anesthesia Evaluation for: Ebonie Sol a 60 y.o. female. Procedure(s): ENDOSCOPY WRIST W/ RELEASE TRANSVERSE CARPAL LIGAMENT Patient Active Problem List Diagnosis ??? Carpal tunnel syndrome on left ??? Hypertension ??? CIS - Entered not Verified ??? CIS - type 1 DM in excellent control using an insulin pump and CGMS. Diagnosed at age 7 Past Medical History Diagnosis Date ??? Hypertension ??? Type 1 diabetes ??? Asthma ??? GERD (gastroesophageal reflux disease) ??? Median nerve injury Past Surgical History Procedure Laterality Date ??? Carpal tunnel release Right complicated by median nerve injury ??? section x2 ??? Pilonidal cyst excision History Substance Use Topics ??? Smoking status: Former Smoker Quit date: 02/16/1979 ??? Smokeless tobacco: Never Used ??? Alcohol Use: Yes Comment: 3/week History Drug Use No Allergies Allergen Reactions ??? Penicillins Hives ??? Prochlorperazine Medications: MAR and/or home medications have been reviewed. Physical Exam: There were no vitals filed for this visit. There is no weight on file to calculate BMI. Airway Assessment: Mallampati: II TM distance: >3 FB Neck ROM: full Cardiovascular Assessment: Rhythm: regular Pulmonary Assessment: breath sounds clear to auscultation Dental Assessment: - normal exam Misc Assessment: Patient is wearing No contact(s). IV access: Peripheral line Anesthesia Plan: ASA 2 MAC, with a(n) intravenous induction 60 y/o female for L CTR Hx sig for IDDM on a pump- well controlled. Basal is currently off for a BS of 72, now 99. Will re-check before going into the OR. No complication to anesthesia in the past Pt denies CP/SOB/PND/Orthopnea/Active COLLINS ss Plan MAC w std monitoring and supplemental O2 IC discussed and obtained Region - Other Informed Consent: Anesthetic plan and risks discussed with patient and spouse. Plan discussed with SKATE HOP. PAT Staff Documentation: Reason for PAT Contact: Patient Request Hx of Anesthesia Problem: Patient denies. Had GA for wisdom teeth extraction and spinal for C sections. Was Patient Seen in PAT? Yes (via phone) Additional/Outside Data Requested? No Findings, Assessment and Action: Ms. Sol is a 60 y.o. year old female contacted at her request prior to planned CTR with Dr. Laith Diehl. Per PAT questionnaire: Unplanned overnight hospitalization; HTN; asthma; DM on insulin. Pertinent PMH includes:Type 1 DM since age 7 with no macro- or microvascular complications, on insulin pump (hypoglycemic unawareness noted in eDH); HTN (well-controlled on lisinopril); asthma much improved after move from [place] with no recent flare or inhaler use. ROS: Denies chest pain, palpitations. Denies SOB, cough, wheezing. Exercise tolerance is moderate. 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 She called to request that her surgery be done under GA as she still feels traumatized by her previous CTR 30 yrs ago during which she suffered nerve damage, and she cannot imagine being awake or even mildly sedated for another surgery. I told her I would contact Dr. Cuellar, [facility] Core Composer Machine Tender, to make sure arrangements could be made for GA at the [facility]. Ms. Sol has made plans for coverage at work and is eager to have the surgery as scheduled on 06/16/2015. She will speak with her celery wrapper's office regarding whether any special precautions need to be taken with her insulin pump. She was NPO prior to a colonoscopy last year without complications. Gabrielle Eric, JIMY Pre-Admission Testing [phone] Pager [phone] documented in this encounter Plan of Treatment Upcoming Encounters Date Type Department Care Team (Late st Contact Info) Description 06/05/2024 10:15 AM EST Office [place] [address] Namita Bansal MD [facility] DR ENDOCRINOLOGY [place] [address] documented as of this encounter Goals Goal [...] Action Date Dose Rate Site clindamycin (CLEOCIN) 600mg in dextrose 5% 50mL 600 mg, Intravenous, EVERY 8 HOURS, First dose on Tue06/16/15 at 0730, Until Discontinued, Administer over 20 Minutes, Day of Surgery (Day of Procedure), Indication for (Active or Suspected): Prophylaxis Given 06/16/2015 7:25 AM EST 600 mg dexamethasone (DECADRON) injection PRN, Starting on Tue06/16/15 at 0724, Until Tue06/16/15 at 0737, Anesthesia Intra-op, Routine Given 06/16/2015 7:24 AM EST 4 mg dexmedetomidine (PRECEDEX) injection PRN, Starting on Tue06/16/15 at 0718, Until Tue06/16/15 at 0737, Anesthesia Intra-op, Routine Given 06/16/2015 7:18 AM EST 4 mcg fentaNYL 50 mcg/mL multi-dose injection PRN, Starting on Tue06/16/15 at 0715, Until Tue06/16/15 at 0737, Pain, Anesthesia Intra-op, Routine Given 06/16/2015 7:23 AM EST 25 mcg Given 06/16/2015 7:20 AM EST 25 mcg Given 06/16/2015 7:17 AM EST 25 mcg ketorolac (TORADOL) injection PRN, Starting on Tue06/16/15 at 0725, Until Tue06/16/15 at 0737, Pain, Anesthesia Intra-op, Routine Given 06/16/2015 7:25 AM EST 15 mg lidocaine (PF) (XYLOCAINE) 100 mg/5 mL (2 %) injection PRN, Starting on Tue06/16/15 at 0718, Until Tue06/16/15 at 0737, Anesthesia Intra-op, Routine Given 06/16/2015 7:18 AM EST 40 mg midazolam (PF) (VERSED) 1 mg/mL multi-dose injection PRN, Starting on Tue06/16/15 at 0714, Until Tue06/16/15 at 0737, Sleep, Anesthesia Intra-op, Routine Given 06/16/2015 7:14 AM EST 2 mg ondansetron (ZOFRAN) injection PRN, Starting on Tue06/16/15 at 0724, Until Tue06/16/15 at 0737, Nausea, Anesthesia Intra-op, Routine Given 06/16/2015 7:24 AM EST 4 mg propofol (DIPRIVAN) infusion CONTINUOUS PRN, Starting on Tue06/16/15 at 0720, Until Tue06/16/15 at 0737, Anesthesia Intra-op, Routine New Bag 06/16/2015 7:20 AM EST 150 mcg/kg/min 52.3 mL/hr documented in this encounter Care Teams Spectrographic Analyst Relationship Specialty Start Date End Date Mitchell Yap MD [address] [place] [address] PCP - General 05/19/10 07/17/23 documented as of this encounter
--- OUTSIDE RECORDS SUMMARY | 2024-04-18 13:17 | XMS_ITS | Encounter Summary ---
[place] [address] Care Team Providers Care Poultry Processor Name Role Phone Mitchell Yap MD Primary Care Provider [phone] Encounter Details Date Type Department Care Team (Late st Contact Info) Description 09/11/2014 Telephone [place] [phone] Flaca Guzman LPN Social History Tobacco Use Types Packs/Day Years Used Date Smoking Tobacco: Former Cigarettes Q uit: 02/16/1979 Smokeless Tobacco: Never Sex and Gender Information Value Date Recorded Sex Assigned at Female 11/02/2020 3:40 PM EDT Gender Identity Female 11/02/2020 3:40 PM EDT Sexual Orientation Straight 11/02/2020 3: 40 PM EDT documented as of this encounter Miscellaneous Notes * Telephone Encounter - Flaca Guzman LPN - 09/11/2014 4:25 PM EDT Rx request received from [facility] pharmacy for sensors. Per note 03/27/14 patient not using due to an allergic reaction to the transmitter. Called patient who confirms she still is not using sensors and does not need nor want any at this time. This was faxed to [facility] pharmacy. documented in this encounter Plan of Treatment Upcoming Encounters Date Type Department Care Team (Late st Contact Info) Description 06/05/2024 10:15 AM EST Office [place] [address] Namita Bansal MD [facility] [place] [address] documented as of this encounter Goals Goal Patient Goal Type Associated Problems Recent Progress Patient-Stated? Author Exercise 3x per week (30 min per time) Exercise No Keila Arango, CDLulu documented as of this encounter Visit Diagnoses Not on filedocumented in this encounter Care Teams Poultry Processor Relationship Specialty Start Date End Date Mitchell Yap MD [address] [place] [address] PCP - General 05/19/10 07/17/23 documented as of this encounter
--- OUTSIDE RECORDS SUMMARY | 2024-04-18 13:17 | XMS_ITS | Encounter Summary ---
Author Organization [facility] [place] [address] Care Team Providers Care Landscape Manager Name Role Phone Mitchell Yap MD Primary Care Provider [phone] Reason for Visit * Reason Onset Date Comments Other 06/08/2016 Encounter Details Date Type Department Care Team (Late st Contact Info) Description 06/08/2016 [place] [phone] Jenna Chandler MD [facility] [place] [address] Other Social History Tobacco Use Types Packs/Day [...] Telephone Encounter - Abby Hernandez RN - 06/09/2016 1:[address] Chandler: Please put this patient on an cancellation list. Call placed back to patient and relayed the message above. Patient verb understanding and agreeable to plan. * Telephone Encounter - Abby Hernandez RN - 06/08/2016 3:32 PM EST New patient appointment with Dr. Chandler on 11-23-2016. Caller: Patient's PCP, Dr. Yap. 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 Dr. Yap is concerned that her hypoglycemic events have left this patient with permanent neurological issues. Patient isn't aware when she has hyoglycemia , and her blood sugar ranges around 60, buton rare occasions my dip down to the 20's. Patient is being followed by an fuel quality tech, which is recommending an sensor the detects when patient is having hypoglycemia, but her insurance company will not cover this item. Dr. Yap is hoping that with neurologist input the insurance company will cover the cost of this sensor. Dr. Yap is requesting that this patient be seen sooner than October of 2016. Plan: Forward to Dr. Chandler for review and comment. * Telephone Encounter - Karmen Ladd - 06/08/2016 11:04 AM EST Caller: Dr. Yap RMD If not Pt / Relation to pt: Caller Contact Number: [phone] Best time to reach pt back: 12:45-1:45 Reason for call: Dr. Yap requests a call from Dr. Chandler to discuss a sooner appointment for thispatient Before 2:30pm - Informed caller that nurse will call back by the end of the day After 230 pm - Informed caller that if the nurse does not call back by the end of the day they willbe called tomorrow AM - Best number for tomorrow am: documented in this encounter Plan of Treatment Upcoming Encounters Date Type Department Care Team (Late st Contact Info) Description 06/05/2024 10:15 AM EST Office [place] [address] Namita Bansal MD [facility] [place] [address] documented as of this encounter Goals Goal Patient Goal Type Associated Problems Recent Progress Patient-Stated? Author Exercise 3x per week (30 min per time) Exercise No Keila Arango, CHRISTIANO documented as of this encounter Visit Diagnoses Not on filedocumented in this encounter Care Teams Landscape Manager Relationship Specialty Start Date End Date Mitchell Yap MD [address] [place] [address] PCP - General 05/19/10 07/17/23 documented as of this encounter
--- OUTSIDE RECORDS SUMMARY | 2024-04-18 13:17 | XMS_ITS | Encounter Summary ---
[place] [address] Care Team Providers Care Frozen Pie Maker Name Role Phone Mitchell Yap MD Primary Care Provider [phone] Encounter Details Date Type Department Care Team (Late st Contact Info) Description 10/20/2015 Notes [place] [phone] Flaca Guzman LPN Social History Tobacco Use [...] as of this encounter Progress Notes * Flaca Guzman LPN - 10/20/2015 3:36 PM EDT Office notes and Ha1c faxed to [facility] medical documented in this encounter Plan of Treatment Upcoming Encounters Date Type Department Care Team (Late st Contact Info) Description 06/05/2024 10:15 AM EST Office [place] [address] Namita Bansal MD [facility] [place] [address] documented as of this encounter Goals Goal Patient Goal Type Associated Problems Recent Progress Patient-Stated? Author Exercise 3x per week (30 min per time) Exercise No Keila Arango, CDE documented as of this encounter Visit Diagnoses Not on filedocumented in this encounter Care Teams Frozen Pie Maker Relationship Specialty Start Date End Date Mitchell Yap MD [address] [place] [address] PCP - General 05/19/10 07/17/23 documented as of this encounter
--- OUTSIDE RECORDS SUMMARY | 2024-04-18 13:17 | XMS_ITS | Encounter Summary ---
Author Organization [facility] [place] [address] Care Team Providers Care Rug Sample Beveler Name Role Phone Mitchell Yap MD Primary Care Provider [phone] Encounter Details Date Type Department Care Team (Latest Contact Info) Description 11/05/2015 10:50 AM EDT [place] [address] Diabetes mellitus type 1, uncomplicated [...] 10:15 AM EST Office [place] [address] Namita Bansal MD [facility] DR ENDOCRIN[place] [address] documented as of this encounter Goals Goal Patient Goal Type Associated Problems Recent Progress Patient-Stated? Author Exercise 3x per week (30 min per time) Exercise No Keila Arango CDE documented as of this encounter Procedures Procedure Name Priority Date/Time Associated Diagnosis Comments U ALBUMIN/CRE RATIO Routine 11/05/2015 1 1:17 AM EDT Diabetes mellitus type 1, uncomplicated CREATININE Routine 11/05/2015 11:10 AM EDT Diabetes mellitus type 1, uncomplicated TSH Routine 11/05/2015 11:10 AM EDT Diabetes mellitus type 1, uncomplicated LDL CHOLESTEROL, DIRECT Routine 11/05/2015 11:10 AM EDT Diabetes mellitus type 1, uncomplicated HDL/CHOL PROFILE Routine 11/05/2015 11:1 0 AM EDT Diabetes mellitus type 1, uncomplicated HEMOGLOBIN A1C Routine 11/05/2015 11:10 AM EDT Diabetes mellitus type 1, uncomplicated documented in this encounter Results * Microalbumin, urine, random (11/05/2015 11:17 AM EDT) Creatinine, Urine 92 mg/dL [facility] Albumin, Urine <3.0 mg/L [facility] Albumin / Creatinin Ratio, Urine <3 mcg/mg Cr [facility] Comment: Reference Range* Random collection (mcg/mg creatinine) Normal ?<30 Microalbuminuria ?? 30 - 300 Clinical Albuminuria ?? >300 *[place] Diabetes Association. Diabetic Nephropathy. Diabetes Care 1997;(Suppl 1):S24-S27 Exercise within 24 hour, infection, fever, CHF, marked hyperglycemia, and marked hypertension may elevate urinary albumin excretion over baseline values. Urine specimen (specimen) 11/05/2015 11:17 AM EDT 11/05/2015 11:33 AM EDT Narrative Resulting Agency Comment Spec In Lab Torsten Peguero MD URINE ORDERABLES Performing Organization Address [facility] de Phone Number [facility] [place] [address] * (ABNORMAL) LDL Cholesterol, Direct (11/05/2015 11:10 AM EDT) LDL Cholesterol, Direct 104(H) <=99 mg/dL [facility] Comment: The National Cholesterol Education Program (NCEP) has set the following guidelines for LDL Cholesterol: Reference range: ?? Optimal: ?<100 mg/dL ?? Near Optimal/Above Optimal: ?? 100-129 mg/dL ?? Borderline high: ?130-159 mg/dL ?? High: ? 160-189 mg/dL ?? Very high: ?>nz=203 mg/dL SUJATA 2001: 285(19):6055-3911 Blood specimen (specimen) 11/05/2015 11:10 AM EDT 11/05/2015 11:20 AM EDT Narrative Resulting Agency Comment Spec In Lab Torsten Peguero MD CHEMISTRY ORDERABLES Performing Organization Address [facility] de Phone Number [facility] [place] [address] * HDL/Cholesterol Profile (11/05/2015 11:10 AM EDT) Cholesterol, Total 183 <=199 mg/dL [facility] Comment: Recommendations of the NCEP Adult Treatment Panel for the following risk cutoff thresholds for the [place] population: Desirable: <200 mg/dL Borderline High: 200-239 mg/dL High: > or = 240 mg/dL HDL Cholesterol 76 >=40 mg/dL [facility] Comment: Reference range: ??Low HDL: ?? < 40 mg/dL ??Normal: ?40-60 mg/dL ??Desirable: > 60 mg/dL SUJATA 2001; 285(19):4092-0071 Cholesterol/HDL Ratio 2.4 ratio [facility] Comment: A Cholesterol to HDL ratio below 4:1 is desirable. ??Studies suggest that increased CAD risk occurs at ratios above 5 for females and above 6 for men. ? [place] Heart Association ??(http://www.americanheart.org) ? Ani Int Med, 1994; 121:641 ? AM J Med, 1998; 105(1A):48S Blood specimen (specimen) 11/05/2015 11:10 AM EDT 11/05/2015 11:20 AM EDT Narrative Resulting Agency Comment Spec In Lab Torsten Peguero MD CHEMISTRY ORDERABLES Performing Organization Address [facility] Co de Phone Number [facility] [place] [address] * TSH (11/05/2015 11:10 AM EDT) Thyroid Stimulating Hormone 1.39 0.27 - 4.20 mcIU/mL [facility] Blood specimen (specimen) 11/05/2015 11:10 AM EDT 11/05/2015 11:20 AM EDT Narrative Resulting Agency Comment Spec In Lab Torsten Peguero MD CHEMISTRY ORDERABLES Performing Organization Address [facility] Co de Phone Number [facility] [place] [address] * (ABNORMAL) Hemoglobin A1c (11/05/2015 11:10 AM EDT) Hemoglobin A1c 7.0(H) 4.3 - 5.6 % [facility] Comment: Reference Range: [...] Mellitus, Diabetes Care 2013; 36: Suppl. 1, E46-74 Estimated Average Glucose 154 mg/dL [facility] Comment: eAG equivalents for HbA1c percentages: HbA1c(%) ?eAG(mg/dL) 6.0 ?126 6.5 ?140 7.0 ?154 7.5 ?169 8.0 ?183 8.5 ?197 9.0 ?212 9.5 ?226 10.0 ? 240 Limitations: The eAG calculation has not been validated on women, individuals below 18 years old and above 70 years old, and individuals with hemoglobinopathies. Additional resources are available on the ADA website: http://[employer]/[facility] Sam COPELAND, Leatha J, Blanca R, et al. ??Translating the A1C assay into estimated average glucose values. ??Diabetes Care 2008:31(8):8563-4626. Blood specimen (specimen) 11/05/2015 11:10 AM EDT 11/05/2015 11:20 AM EDT Narrative Resulting Agency Comment Spec In Lab Torsten Peguero MD CHEMISTRY ORDERABLES [facility] [place] [address] * Creatinine (11/05/2015 11:10 AM EDT) Creatinine 0.70 0.70 - 1.20 mg/dL [facility] Comment: Please note that the pediatric reference intervals supplied above were not validated at [facility]. Results from pediatric patients should be interpreted in conjunction to the patient's age, height and muscle mass. Est Glomerular Filtration Rate >60 >=60 [facility] Comment: This estimated GFR (eGFR) [...] the following links into your internet browser. [email or web address]/[email or web address] [email or web address]://[employer]/[facility] TULSAnkf Blood specimen (specimen) 11/05/2015 11:10 AM EDT 11/05/2015 11:20 AM EDT Narrative Resulting Agency Comment Spec In Lab Torsten Peguero MD CHEMISTRY ORDERABLES [facility] [place] [address] documented in this encounter Visit Diagnoses Diagnosis Diabetes mellitus type 1, uncomplicated Type I (juvenile type) diabetes mellitus without mention of complication, not stated as uncontrolled documented in this encounter Care Teams Rug Sample Beveler Relationship Specialty Start Date End Date Mitchlel Yap MD [address] [place] [address] PCP - General 05/19/10 07/17/23 documented as of this encounter
--- OUTSIDE RECORDS SUMMARY | 2024-04-18 13:17 | XMS_ITS | Encounter Summary ---
[place] [address] Care Team Providers Care Cold Type Artist Name Role Phone Mitchell Yap MD Primary Care Provider [phone] Reason for Visit * Reason Onset Date Comments Medication Refill 10/17/2015 Encounter Details Date Type Department Care Team (Late st Contact Info) Description 10/17/2015 [place] [address] Anyi Arthur, RN Social History Tobacco Use [...] 10:15 AM EST Office [place] [phone] Namita Bansal MD [facility] [place] [address] documented as of this encounter Goals Goal Patient Goal Type Associated Problems Recent Progress Patient-Stated? Author Exercise 3x per week (30 min per time) Exercise No Keila Arango, CDE documented as of this encounter Visit Diagnoses Not on filedocumented in this encounter Care Teams Cold Type Artist Relationship Specialty Start Date End Date Mitchell Yap MD [address] [place] [id number] PCP - General 05/19/10 07/17/23 documented as of this encounter
--- OUTSIDE RECORDS SUMMARY | 2024-04-18 13:17 | XMS_ITS | Encounter Summary ---
Author Organization [facility] [place] [address] Care Team Providers Care Manager Fitness Name Role Phone Mitchell Yap MD Primary Care Provider [phone] Reason for Visit * Reason Comments Left Hand Pain left trigger thumb * Consultation (Routine) - Closed Specialty Diagnoses / Procedures Referred By Contac t Referred To Contact Orthopaedics Diagnoses left trigger thumb Mitchell Yap MD [address] [place] [address] Laith Diehl MD [facility] [address] [place] [address] Referral ID Status Reason Start Date Expiration Date V isits Requested Visits Authorized [id number] Closed Connection Center 05/25/2016 05/25/2017 1 1 Encounter Details Date Type Department Care Team (Late st Contact Info) Description 05/28/2016 2:10 PM EST Office [place] [address] Ирина Sethi PA [address] [place] [address] [place] [address] Trigger thumb of left hand Social History [...] Sign Reading Time Taken Comments Blood Pressure 127/55 05/28/2016 2:07 PM EST Pulse 67 05/28/2016 2:07 PM EST Temperature - - Respiratory Rate - - Oxygen Saturation - - Inhaled Oxygen Concentration - - Weight 64.4 kg (142 lb) 05/28/2016 2:07 PM EST s tated Height 151.8 cm (4' 11.75) 05/28/2016 2:[address] stated Body Mass Index 27.97 05/28/2016 2:07 PM EST documented in this encounter Progress Notes * Ирина Sethi PA - 05/28/2016 2:10 PM EST Ebonie comes in today for evaluation of her left thumb. She is ambidextrous and notes 4-6 weeks of clicking, catching, and locking of her left thumb. She is diabetic. She has not had any previous trigger finger. She has not tried any treatment for this. She is almost 1 year post left carpal tunnel release and doing very well with that. Examination today of her left hand shows no swelling, no skin discoloration. She has full range of motion of all fingers with clicking, easily demonstrated on left thumb. She is tender in the A1 jeannette area. X-rays taken today show no acute abnormalities. IMPRESSION: Left trigger thumb. TREATMENT: Treatment was gone over with her beginning with splinting, corticosteroid injection, or surgical treatment. Patient would like to avoid cortisone injections. She has not had good results with them in the past. She would prefer to have this treated more definitively in the form of A1 jeannette release. I did supply her with Coban to use for splinting. We will have her meet with the surgical schedulers today to arrange for A1 jeannette release left thumb. She will need to come back to see Dr. Diehl for consent signing and preop teaching. documented in this encounter Plan of Treatment Upcoming Encounters Date Type Department Care Team (Late st Contact Info) Description 06/05/2024 10:15 AM EST Office [place] [address] Namita Bansal MD [facility] [place] [address] documented as of this encounter Goals Goal Patient Goal Type Associated Problems Recent Progress Patient-Stated? Author Exercise 3x per week (30 min per time) Exercise No Keila Arango CDE documented as of this encounter Procedures Procedure Name Priority Date/Time Associated Diagnosis Comments TENDON SHEATH INCISION (TRIGGER FINGER) Routine 05/28/2016 2:25 PM EST Trigger thumb of left hand documented in this encounter Visit Diagnoses Diagnosis Trigger thumb of left hand Trigger finger (acquired) documented in this encounter Care Teams Manager Fitness Relationship Specialty Start Date End Date Mitchell Yap MD [address] [place] [id number] PCP - General 05/19/10 07/17/23 documented as of this encounter
--- OUTSIDE RECORDS SUMMARY | 2024-04-18 13:17 | XMS_ITS | Encounter Summary ---
Author Organization [facility] [place] [address] Care Team Providers Care Hat And Cap Opener Name Role Phone Mitchell Yap MD Primary Care Provider [phone] Encounter Details Date Type Department Care Team (Late st Contact Info) Description 09/25/2014 9:00 AM EDT Office Visit [place] [address] Ebonie Betancourt LD [facility] [place] [address] Radha Miller MD [facility] [place] [address] Diabetes mellitus type 1, uncomplicated Discharge Disposition: Home Social History Tobacco Use [...] Sign Reading Time Taken Comments Blood Pressure 131/78 09/25/2014 9:05 AM EDT Pulse 65 09/25/2014 9:05 AM EDT Temperature - - Respiratory Rate - - Oxygen Saturation - - Inhaled Oxygen Concentration - - Weight 68.4 kg (150 lb 12.8 oz) 09/25/2014 9:05 AM EDT Height - - Body Mass Index 30.46 08/12/2011 1:34 PM EST documented in this encounter Patient Instructions * Patient Instructions* Radha Miller MD - 09/25/2014 10:07 AM EDT Recent Results (from the past 24 hour(s)) HEMOGLOBIN A1C Result Value Ref Range Hemoglobin A1C 7.6 (*) 4.3 - 5.6 % Est Avg Gluc 171 CREATININE Result Value Ref Range Creatinine 0.70 0.70 - 1.20 mg/dL Estimated GFR >60 >=60 TSH Result Value Ref Range TSH 3.34 0.27 - 4.20 mcIU/mL HDL/CHOL PROFILE Result Value Ref Range Chol, Total 197 <=199 mg/dL HDL 85 >=40 mg/dL Chol/HDL Ratio 2.3 LDL CHOLESTEROL, DIRECT Result Value Ref Range LDL Chol Direct 110 (*) <=99 mg/dL documented in this encounter Progress Notes * Radha Miller MD - 09/21/2014 12:29 PM EDT PRIMARY CARE PROVIDER: Mitchell Yap MD CC: Here for f/u of type 1 DM Dx: 1958 Last Hga1c 7.6, 09/08; 6.9, 8; 7.0, 10/08; 7.9, 08/10;7.2, 11/06 DIABETES REGIMEN:[employer] MiniMed Revel 523. Basal rates at midnight- 0.575; 5 a.m., 0.6; 10 a.m.- 0.45; 1700- 0.5; 1800-0.475; 2100- 0.425. Total basal 12.225. Movowyu-ls-ifgk at midnight, 1:14t 12:30 pm, 13, 18:30, 14. Sensitivity 55. Target glucose 100 to 140. Active insulin x3 hours. 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 She was having skin reactions at the site of the transmitter with blistering and itching-type rash. She tried using Tegaderm under it, but it did not help and is going to try a barrier ointment to see if that will help, but because she is not using the sensor and she has significant hypoglycemia unawareness, she has been running her blood sugars a little bit higher and hemoglobin A1c reflects that. Fasting sugars are running 110 to 150 but can range anywhere from 50 to 300, noontime 90 to 250; pretty variable, lunch time 80 to 150. Hypoglycemia, once or twice a week. EXERCISE: She walks on her treadmill for 20 minutes every day and is active walking at her job. DIET: She usually skips breakfast. Midmorning, she might have fruit or beef toast. Her lunch, salad bar with lettuce, chickpeas, beets, carrots, cottage cheese, and half a cup of milk. For supper, usually a main meal, chicken, rice and vegetable. Evening snack, almonds, sometimes low fat ice cream. Complication evaluation is up-to-date and she is doing well. PAST MEDICAL HISTORY: Type 1 diabetes, asthma, hypertension, lumbar disk disease. PAST SURGICAL HISTORY: x2, right carpal tunnel release, pilonidal cyst. Current Outpatient Prescriptions on File Prior to Visit Medication Sig Dispense Refill ??? Diabetic Supplies, Miscellan. [facility] Form faxed to [facility] for insulin pump supplies 1 each 3 ??? insulin lispro (HUMALOG) 100 unit/mL injection ~30-40 units continuous pump, SQ, continuous 10 mL ??? ONE TOUCH ULTRA TEST test strip USE TO CHECK GLUCOSE 10-15 TIMES PER DAY (Patient taking differently: use to check blood sugar 8x/daily) 500 each PRN ??? aspirin 81 mg EC tablet ??? multivitamin (THERAGRAN) tablet ??? fluticasone-salmeterol (ADVAIR DISKUS) 100-50 mcg/dose diskus inhaler No current facility-administered medications on file prior to visit. Allergies Allergen Reactions ??? Penicillins Hives ??? 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 She is also caring for her 95-year-old father who lives with her. She is for 35 years, has two daughters. Alcohol, zero to one glass of wine. Quit smoking in 1978. REVIEW OF SYSTEMS: Complete review of systems is negative. She feels well, a little frustrated with the blood sugars and not being able to wear the sensor. PHYSICAL EXAM: On physical exam, blood pressure 131/78, pulse 65. Weight 150 and stable. In general, she looks well. Her skin is smooth, warm, and dry. No ulcerations. Cardiovascular: 2+ pulses. No edema. Neurologic Exam: Good light touch sensation. Psych: Mood and affect are appropriate. LABORATORY TESTS: Hemoglobin A1c 7.6. Lipids; total cholesterol 197, HDL 85, LDL 110, TSH 3.34. IMPRESSION: 1. Diabetes. Blood sugar control actually is quite good, but a little high for Ebonie. She will try using a barrier underneath the glucose sensor and see if she can avoid the reaction. If not, we will have her seen in [facility] to see if they have any recommendations or how she likely will be able to wear her sensor without getting the skin reaction. PLAN: 1. Continue current insulin. 2. Followup in six months with Abby Campbell with hemoglobin A1c in the [facility]. documented in this encounter Plan of Treatment Upcoming Encounters Date Type Department Care Team (Late st Contact Info) Description 06/05/2024 10:15 AM EST Office Visit [place] [address] Namita Bansal MD [facility] [place] [address] documented as of this encounter Goals Goal Patient Goal Type Associated Problems Recent Progress Patient-Stated? Author Exercise 3x per week (30 min per time) Exercise No Keila Arango CDE documented as of this encounter Procedures Procedure Name Priority Date/Time Associated Diagnosis Comments U ALBUMIN/CRE RATIO STAT 09/25/2014 9 :12 AM EDT Diabetes mellitus type 1, uncomplicated CREATININE STAT 09/25/2014 8:56 AM EDT Diabetes mellitus type 1, uncomplicated TSH STAT 09/25/2014 8:56 AM EDT Diabetes mellitus type 1, uncomplicated LDL CHOLESTEROL, DIRECT STAT 09/25/2014 8:56 AM EDT Diabetes mellitus type 1, uncomplicated HDL/CHOL PROFILE STAT 09/25/2014 8:56 AM EDT Diabetes mellitus type 1, uncomplicated HEMOGLOBIN A1C STAT 09/25/2014 8:56 AM EDT Diabetes mellitus type 1, uncomplicated documented in this encounter Results * (ABNORMAL) Hemoglobin A1c (04/23/2015 10:25 AM EDT) [facility] Signature Hemoglobin A1c 7.2(H) 4.3 - 5.6 % [facility] Comment: Reference Range: 4.3 - 5.6% 5.7 [...] Mellitus, Diabetes Care 2013; 36: Suppl. 1, T53-28 Estimated Average Glucose 160 mg/dL [facility] Comment: eAG equivalents for HbA1c percentages: HbA1c(%) ?eAG(mg/dL) 6.0 ?126 6.5 ?140 7.0 ?154 7.5 ?169 8.0 ?183 8.5 ?197 9.0 ?212 9.5 ?226 10.0 ? 240 Limitations: The eAG calculation has not been validated on women, individuals below 18 years old and above 70 years old, and individuals with hemoglobinopathies. Additional resources are available on the ADA website: http://Yan Engines/DHMCadacalc Sam COPELAND, Leatha Rivera, Blanca R, et al. ??Translating the A1C assay into estimated average glucose values. ??Diabetes Care 2008:31(8):2061-3652. Blood specimen (specimen) 04/23/2015 10:25 AM EDT 04/23/2015 10:30 AM EDT Narrative Resulting Agency Comment Spec In Lab Radha Miller MD CHEMISTRY ORDERAB LES [facility] * Microalbumin, urine, random (09/25/2014 9:12 AM EDT) Creatinine, Urine 75 mg/dL [facility] Albumin, Urine <3.0 mg/L RUFUS Aguila MILLENNIUM Albumin / Creatinin Ratio, Urine <4 mcg/mg Cr [facility] Comment: Reference Range* Random collection (mcg/mg creatinine) Normal ?<30 Microalbuminuria ?? 30 - 300 Clinical Albuminuria ?? >300 *[place] Diabetes Association. Diabetic Nephropathy. Diabetes Care 1997;(Suppl 1):S24-S27 Exercise within 24 hour, infection, fever, CHF, marked hyperglycemia, and marked hypertension may elevate urinary albumin excretion over baseline values. Urine specimen (specimen) 09/25/2014 9:12 AM EDT 09/25/2014 9:27 AM EDT Narrative Resulting Agency Comment Spec In Lab Radha Miller MD URINE ORDERABLES Performing Organization Address City/[facility] Co de Phone Number [facility] * (ABNORMAL) LDL Cholesterol, Direct (09/25/2014 8:56 AM EDT) LDL Cholesterol, Direct 110(H) <=99 mg/dL [facility] Comment: The National Cholesterol Education Program (NCEP) has set the following guidelines for LDL Cholesterol: Reference range: ?? Optimal: ?<100 mg/dL ?? Near Optimal/Above Optimal: ?? 100-129 mg/dL ?? Borderline high: ?130-159 mg/dL ?? High: ? 160-189 mg/dL ?? Very high: ?>cx=030 mg/dL SUJATA 2001: 285(19):6616-2371 Blood specimen (specimen) 09/25/2014 8:56 AM EDT 09/25/2014 9:21 AM EDT Narrative Resulting Agency Comment Spec In Lab Radha Miller MD CHEMISTRY ORDERAB LES Performing Organization Address City/[facility]/ZIP Co de Phone Number [facility] * HDL/Cholesterol Profile (09/25/2014 8:56 AM EDT) Cholesterol, Total 197 <=199 mg/dL [facility] Comment: Recommendations of the NCEP Adult Treatment Panel for the following risk cutoff thresholds for the [place] population: Desirable: <200 mg/dL Borderline High: 200-239 mg/dL High: > or = 240 mg/dL HDL Cholesterol 85 >=40 mg/dL [facility] Comment: Reference range: ??Low HDL: ?? < 40 mg/dL ??Normal: ?40-60 mg/dL ??Desirable: > 60 mg/dL SUJATA 2001; 285(19):1903-4739 Cholesterol/HDL Ratio 2.3 ratio [facility] Comment: A Cholesterol to HDL ratio below 4:1 is desirable. ??Studies suggest that increased CAD risk occurs at ratios above 5 for females and above 6 for men. ? [place] Heart Association ??(http://www.americanheart.org) ? Ani Int Med, 1994; 121:641 ? AM J Med, 1998; 105(1A):48S Blood specimen (specimen) 09/25/2014 8:56 AM EDT 09/25/2014 9:21 AM EDT Narrative Resulting Agency Comment Spec In Lab Radha Miller MD CHEMISTRY ORDERAB LES Performing Organization Address [facility] Co de Phone Number [facility] * TSH (09/25/2014 8:56 AM EDT) Thyroid Stimulating Hormone 3.34 0.27 - 4.20 mcIU/mL [facility] Blood specimen (specimen) 09/25/2014 8:56 AM EDT 09/25/2014 9:21 AM EDT Narrative Resulting Agency Comment Spec In Lab Radha Miller MD CHEMISTRY ORDERAB LES Performing Organization Address [facility] Co de Phone Number [facility] * Creatinine (09/25/2014 8:56 AM EDT) Creatinine 0.70 0.70 - 1.20 mg/dL [facility] Comment: Please note that the pediatric reference intervals supplied above were not validated at [facility]. Results from pediatric patients should be interpreted in conjunction to the patient's age, height and muscle mass. Est Glomerular Filtration Rate >60 >=60 [facility] Comment: This estimated GFR (eGFR) value was [...] the following links into your internet browser. [email or web address] [email or web address] [email or web address] [email or web address] Blood specimen (specimen) 09/25/2014 8:56 AM EDT 09/25/2014 9:21 AM EDT Narrative Resulting Agency Comment Spec In Lab Radha Miller MD CHEMISTRY ORDERAB LES [facility] * (ABNORMAL) Hemoglobin A1c (09/25/2014 8:56 AM EDT) Hemoglobin A1c 7.6(H) 4.3 - 5.6 % [facility] Comment: Reference Range: 4.3 - 5.6% 5.7 [...] 36: Suppl. 1, S67-74 Estimated Average Glucose 171 mg/dL [facility] Comment: eAG equivalents for HbA1c percentages: HbA1c(%) ?eAG(mg/dL) 6.0 ?126 6.5 ?140 7.0 ?154 7.5 ?169 8.0 ?183 8.5 ?197 9.0 ?212 9.5 ?226 10.0 ? 240 Limitations: The eAG calculation has not been validated on women, individuals below 18 years old and above 70 years old, and individuals with hemoglobinopathies. Additional resources are available on the ADA website: http://[employer].Intradiem/DHMCadacalc Sam COEPLAND, Leatha J, Blanca R, et al. ??Translating the A1C assay into estimated average glucose values. ??Diabetes Care 2008:31(8):0663-1496. Blood specimen (specimen) 09/25/2014 8:56 AM EDT 09/25/2014 9:21 AM EDT Narrative Resulting Agency Comment Spec In Lab Radha Miller MD CHEMISTRY ORDERAB LES Performing Organization Address City/State/[facility] Co de Phone Number [facility] documented in this encounter Visit Diagnoses Diagnosis Diabetes mellitus type 1, uncomplicated Type I (juvenile type) diabetes mellitus without mention of complication, not stated as uncontrolled documented in this encounter Care Teams Hat And Cap Opener Relationship Specialty Start Date End Date Mitchell Yap MD [address] [place] [address] PCP - General 05/19/10 07/17/23 documented as of this encounter
--- OUTSIDE RECORDS SUMMARY | 2024-04-18 13:17 | XMS_ITS | Encounter Summary ---
[place] [address] Care Team Providers Care Political Science Chair Name Role Phone Mitchell Yap MD Primary Care Provider [phone] Encounter Details Date Type Department Care Team (Late st Contact Info) Description 11/18/2015 Telephone [place] [phone] Anyi Arthur, RN Social History Tobacco Use [...] Telephone Encounter - Anyi Arthur RN - 11/18/2015 8:39 AM EDT Ebonie calls in looking for advice. States that she was at her daughters shower in [place] and forgot her pump supplies there and now is on [place] for a until tomorrow. Let Ebonie know that she could see if her daughter could over night her the supplies. States that they did talk about this but she still wont get the supplies in time. Ebonie states that tomorrow will be day three with this set. States that it is usually the afternoon and evening of the third day that her BS start to increase a bit. Asks if she can just do injections at that point and then she willbe home tomorrow night and will change it. Spoke with Abby Campbell who states yes Ebonie can do injections when her BS starts to rise, can do injections every 2-4 hours. Should let her self run a little bit high given the situation and she will be traveling so she doesn't want to end up with a low. Ebonie agrees with plan. Let her know she can call the clinic at any point tomorrow should she have any problems or call the manager of business operations MD if it is after 5pm. Ebonie agrees. documented in this encounter Plan of Treatment Upcoming Encounters Date Type Department Care Team (Late st Contact Info) Description 06/05/2024 10:15 AM EST Office Visit [place] [address] Namita Bansal MD [facility] [place] [address] documented as of this encounter Goals Goal Patient Goal Type Associated Problems Recent Progress Patient-Stated? Author Exercise 3x per week (30 min per time) Exercise No Keila Arango CDE documented as of this encounter Visit Diagnoses Not on filedocumented in this encounter Care Teams Political Science Chair Relationship Specialty Start Date End Date Mitchell Yap MD [address] [place] [address] PCP - General 05/19/10 07/17/23 documented as of this encounter
--- OUTSIDE RECORDS SUMMARY | 2024-04-18 13:17 | XMS_ITS | Encounter Summary ---
[place] [address] Care Team Providers Care Manager Metal Name Role Phone Mitchell Yap MD Primary Care Provider [phone] Encounter Details Date Type Department Care Team (Late st Contact Info) Description 03/27/2014 9:30 AM EDT Office [place] [address] Ebonie Betancourt LD [facility] [place] [address] Type I (juvenile type) diabetes mellitus with neurological manifestations, not stated as uncontrolled(250.61) (Primary Dx) Discharge Disposition: Home Social History Tobacco Use [...] Progress Notes * Ebonie Betancourt LD - 03/27/2014 12:01 PM EDT Diabetes Education Visit: Ebonie has had type 1 diabetes for 52 years with hypoglycemia unawareness. She is on a MiniMed Revel 523 insulin pump. She has not been able to wear the sensor because she had an allergic reaction to the new transmitter. Pump downloaded and settings are the same as last visit Total basal is now 42% of TDD for last 2 weeks. She did shut off the easy bolus. She is suspending less: 1 - 3 hours some days but not daily. Next visit - review temp basal use instead of always using suspend. She is now changing infusion sets every 3 days and does notice better BG control. Before BG were rising yazan by the 4 or 5 th day. She does not want dual wave bolus on although last night she had pizza and is aware that she could have used this feature. Sensor settings not discussed because she is currently not able to use the sensor. She will call [facility] and see if they could send her another transmitter. documented in this encounter Plan of Treatment Upcoming Encounters Date Type Department Care Team (Late st Contact Info) Description 06/05/2024 10:15 AM EST Office [place] [address] Namita Bansal MD [facility] [place] [address] documented as of this encounter Goals Goal Patient Goal Type Associated Problems Recent Progress Patient-Stated? Author Exercise 3x per week (30 min per time) Exercise No Keila Arango CDE documented as of this encounter Visit Diagnoses Diagnosis Type I (juvenile type) diabetes mellitus with neurological manifestations, not stated as uncontrolled(250.61)- Primary Type I (juvenile type) diabetes mellitus with neurological manifestations, not stated as uncontrolled documented in this encounter Care Teams Manager Metal Relationship Specialty Start Date End Date Mitchell Yap MD [address] [place] [address] PCP - General 05/19/10 07/17/23 documented as of this encounter
--- OUTSIDE RECORDS SUMMARY | 2024-04-18 13:17 | XMS_ITS | Encounter Summary ---
Author Organization [facility] [place] [address] Care Team Providers Care Medicine Aide Name Role Phone Mitchell Yap MD Primary Care Provider [phone] Reason for Visit * Reason Comments Follow Up Surgery L CTR DOS 06/16/15 Encounter Details Date Type Department Care Team (Late st Contact Info) Description 06/30/2015 1:10 PM EST Office Visit [place] [address] Laith Diehl MD [facility] DR ORTHOPAED[place] [address] Carpal tunnel syndrome on left Social History [...] Sign Reading Time Taken Comments Blood Pressure 146/60 06/30/2015 1:05 PM EST Pulse 77 06/30/2015 1:05 PM EST Temperature 36.6 ??C (97.9 ??F) 06/30/2015 1:05 PM ES T Respiratory Rate - - Oxygen Saturation - - Inhaled Oxygen Concentration - - Weight 58.1 kg (128 lb) 06/30/2015 1:05 PM EST v erbal Height 151.8 cm (4' 11.75) 06/30/2015 1:[address] verbal Body Mass Index 25.21 06/30/2015 1:05 PM EST documented in this encounter Progress Notes * Laith Diehl MD - 06/30/2015 1:27 PM EST Eboine Sol underwent endoscopic left carpal tunnel decompression two weeks ago. She does not notice significant improvement in her numbness, but her nocturnal dysesthesias have completely resolved. Her incision is healing in a benign fashion. There is no evidence of infection. Her suture was removed and Steri-Strips are applied. She has good palmar abduction strength of her thumb. She has no sensory deficits in the ulnar distribution at all. At this point, she may begin to use her hand as tolerated. I have talked to her about scar massage and progressive use of the hand as tolerated. She will see me in the future on a p.r.n. basis. * Elise Macario - 06/30/2015 1:23 PM EST Patient identification was verified using two identifiers and consent was obtained. yes Patient verbalized understanding of procedure: yes The incision area was cleaned and prepped using sterile antiseptic swab. yes Sterile gauze was placed next to suture line to act as a receptacle for removed kallie.yes All sutures were removed by gently pulling the knot away from the skin and cutting the sutures as close to the skin as possible. yes Incision was inspected and cleaned with a sterile, antiseptic swab. yes Wound closure strips were applied to maintain contact between wound edges. yes Patient tolerated procedure well. yes Patient instructed on care of incision. yes Additional patient questions for provider: Additional comments: documented in this encounter Plan of Treatment Upcoming Encounters Date Type Department Care Team (Late st Contact Info) Description 06/05/2024 10:15 AM EST Office Visit [place] [address] Namita Bansal MD [facility] DR ENDOCRINOLOG[place] [address] documented as of this encounter Goals Goal Patient Goal Type Associated Problems Recent Progress Patient-Stated? Author Exercise 3x per week (30 min per time) Exercise No Keila Arango, CHRISTIANO documented as of this encounter Visit Diagnoses Diagnosis Carpal tunnel syndrome on left Carpal tunnel syndrome documented in this encounter Care Teams Medicine Aide Relationship Specialty Start Date End Date Mitchell Yap MD [address] [place] [address] PCP - General 05/19/10 07/17/23 documented as of this encounter
--- OUTSIDE RECORDS SUMMARY | 2024-04-18 13:17 | XMS_ITS | Encounter Summary ---
[place] [address] Care Team Providers Care Senior Procurement Specialist Name Role Phone Mitchell Yap MD Primary Care Provider [phone] Encounter Details Date Type Department Care Team (Late st Contact Info) Description 01/30/2016 Telephone [place] [phone] Flaca Guzman LPN Social History Tobacco Use [...] Telephone Encounter - Flaca Guzman LPN - 01/30/2016 3:59 PM EDT Message on endo nurse line from patient that she needs pump supplies for her Medtronic insulin pump. R/c to patient. No answer. Message on v/m the form was faxed to [facility] diabetes on Amanda 11. To please contact [facility] or r/c to nurse. documented in this encounter Plan of Treatment Upcoming Encounters Date Type Department Care Team (Late st Contact Info) Description 06/05/2024 10:15 AM EST Office Visit [place] [address] Namita Bansal MD [facility] [place] [address] documented as of this encounter Goals Goal Patient Goal Type Associated Problems Recent Progress Patient-Stated? Author Exercise 3x per week (30 min per time) Exercise No Keila Arango, CHRISTIANO documented as of this encounter Visit Diagnoses Not on filedocumented in this encounter Care Teams Senior Procurement Specialist Relationship Specialty Start Date End Date Mitchell Yap MD [address] [place] [address] PCP - General 05/19/10 07/17/23 documented as of this encounter
--- OUTSIDE RECORDS SUMMARY | 2024-04-18 13:17 | XMS_ITS | Encounter Summary ---
Author Organization [facility] [place] [address] Care Team Providers Care Heel Seat Fitter Name Role Phone Mitchell Yap MD Primary Care Provider [phone] Reason for Visit * Reason Onset Date Comments Medication Refill 06/04/2016 Encounter Details Date Type Department Care Team (Late st Contact Info) Description 06/04/2016 Refill [place] [address] Jessica Garcia LNA Social History [...] 10:15 AM EST Office Visit [place] [phone] Namita Bansal MD [facility] [place] [address] documented as of this encounter Goals Goal Patient Goal Type Associated Problems Recent Progress Patient-Stated? Author Exercise 3x per week (30 min per time) Exercise No Keial Arango, CDE documented as of this encounter Visit Diagnoses Not on filedocumented in this encounter Care Teams Heel Seat Fitter Relationship Specialty Start Date End Date Mitchell Yap MD [address] [place] [id number] PCP - General 05/19/10 07/17/23 documented as of this encounter
--- OUTSIDE RECORDS SUMMARY | 2024-04-18 13:17 | XMS_ITS | Encounter Summary ---
Author Organization [facility] [place] [address] Care Team Providers Care Grails Web Application Developer Name Role Phone Mitchell Yap MD Primary Care Provider [phone] Reason for Referral * Surgical (Routine) - Closed Specialty Diagnoses / Procedures Referred By Malka vera Referred To Contact Orthopaedics Diagnoses Carpal tunnel syndrome on left Procedures ARTHROSCOPY WRIST W/ RELEASE TRANSVERSE CARPAL LIGAMENT Namiat Brar PA [facility] [place] [address] [facility] [address] [place] [phone] Referral ID Status Reason Start Date Expiration Date Visits Re quested Visits Authorized [id number] Closed 04/02/2015 04/01/2016 1 1 Reason for Visit * Reason Comments Left Wrist Pain L CTS Encounter Details Date Type Department Care Team (Late st Contact Info) Description 04/02/2015 10:55 AM EDT Office [place] [address] Laith Diehl MD [facility] [place] [address] Carpal tunnel syndrome on left Social History [...] Sign Reading Time Taken Comments Blood Pressure 122/66 04/02/2015 11:09 AM EDT Pulse 71 04/02/2015 11:09 AM EDT Temperature - - Respiratory Rate - - Oxygen Saturation - - Inhaled Oxygen Concentration - - Weight 63.5 kg (140 lb) 04/02/2015 11:09 AM EDT Pt reported Height 149.9 cm (4' 11) 04/02/2015 11:09 AM EDT Body Mass Index 28.28 04/02/2015 11:09 AM EDT documented in this encounter Progress Notes * Namita Brar PA - 04/02/2015 12:49 PM EDT PATIENT NAME: Ebonie Sol AGE: 60 y.o. MR#: [id number] DATE OF VISIT: 04/02/2015 DATE OF INJURY/ONSET: Chronic STAFF: Dr. Diehl CHIEF COMPLAINT: Left hand numbness HISTORY OF PRESENT ILLNESS: Ms. Sol is an ambidextrous 60 y.o. female who comes into clinic today for evaluation of the left hand. She was referred to [facility] Ortho by Mitchell Yap. She states her symptoms have been present for over 5 years. She cannot recall any specific injuries. She has hadprogressive numbness into the median nerve distribution. Her symptoms are worse at night and when driving. She has a history of type 1 diabetes that is well-controlled. She has been using a splint atbedtime which seems to help. He denies having any history of wrist fractures. She has had a prior right carpal tunnel release over 30 years ago. This was complicated by the median nerve injury. She presents today after having nerve conduction studies of her left hand. She has not had any prior lefthand surgeries. Medications and Allergies were reviewed in eD-[facility] PAST MEDICAL HX: Past Medical History Diagnosis Date ??? Hypertension ??? Type 1 diabetes ??? Asthma ??? GERD (gastroesophageal reflux disease) ??? Median nerve injury PAST SURGICAL HX: Past Surgical History Procedure Laterality Date ??? Carpal tunnel release Right complicated by median nerve injury ??? section x2 ??? 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 Smoking status: Former Smoker Quit date: 02/16/1979 ??? Smokeless tobacco: Never Used ??? Alcohol Use: Yes Comment: 3/week ??? Drug Use: No ??? Sexual Activity: Not on file ROS: Constitutional: neg HEENT: neg Cardiac: neg Pulmonary: neg GI/: neg Endocrine: diabetes Skin: negMusculoskeletal: see HPI PHYSICAL EXAM: Ms. Sol is a 60 y.o. female who is alert and oriented. She appears in no acute discomfort and is resting comfortably in the exam room. Inspection: No erythema, ecchymosis, or swelling over the left hand. She has pronounced thenar atrophy on the right related to her median nerve injury. Palpation: No specific areas of point tenderness. No palpable triggering. ROM/Strength: FDS, FDP tendons are intact. She is able to perform active wrist and finger range of motion on the left without difficulty. She has some very minimal weakness with palmar abduction, butno significant atrophy on the left. Orthopedic testing: Positive Tinel's over the carpal tunnel. Positive Phalen's and Raúl's compression. She also found that she was having some mild neck discomfort and reproduce symptoms with cervical spine range of motion, particularly lateral flexion and rotation to the left. Neurovascular: At baseline she reports intact sensation into the median, radial, and ulnar nerve distributions on the left. She had reproducible median nerve symptoms. She has persistent numbness in the median nerve distribution on the right. Hands are well perfused. RADIOLOGICAL STUDIES: No x-rays were obtained. She has nerve conduction studies that show a left median motor nerve latency of 6.4 ms. ASSESSMENT: Left carpal tunnel syndrome PLAN: Ms. Sol and I discussed her radiologic findings and physical exam findings. Dr. Diehl also evaluated and spoke with the patient at today's visit. We discussed treatment options to includecontinued splinting, cortisone injection, and carpal tunnel decompression. She has not had resolution of her symptoms with splinting. Cortisone injection could be considered, but she is diabetic and this may cause elevations of her blood glucose. This also would not most likely result in permanent treatment. She is somewhat hesitant to proceed with surgery in light of her complication in the opposite hand, but she is concerned about progressive nerve damage on the left. She elected to proceed wi th left carpal tunnel decompression. Consent was obtained today after discussing surgical risks. She is going to look at her work schedule and will notify us when she would like to proceed with surgery. She will return for follow up 10-14 days post op. The patient understands to contact us if they have any other questions or concerns. The above documentation was completed using [employer] voice recognition software. * Sabrina Oliver RN - 04/02/2015 12:29 PM EDT Pre op teaching done for endoscopic carpal tunnel release. Emphasis placed on post op hand elevation with hand above heart,fingers above palm,palm above wrist and wrist above elbow. Discussed importance of fluttering fingers while original dressing on and fully flexing and extending fingers when Band-Aid in place. Stressed no lifting of operative hand. Reviewed suggestions for taking post op pain medication. Questions solicited and answered to patient satisfaction. Written material provided. Patient knows to call with any additional questions or concerns. * Laith Diehl MD - 04/02/2015 12:12 PM EDT Ebonie oSl was seen in conjunction with PUNEET Cui. She has EMG proven left carpal tunnel syndrome. She has daytime and nighttime numbness, and symptoms while driving in the median nerve distribution digits. She has a positive Phalen's test and a positive Tinel test as well as weakness of palmar abduction. She has no digital triggering. She has had a right carpal tunnel release done about 30 years ago in [place] and reports that the surgeon transected her right median nerve at that time. She now presents with fairly significant left carpal tunnel syndrome. She is a diabetic. I discussed the options of steroid injection versus carpal tunnel decompression. She has tentatively decided that she would like to proceed with left carpal tunnel decompression. She is aware this likely will be done endoscopically, but an open procedure may need to be done. I did emphasize because the fact that she had a median nerve transection on the right that if I see any question of structural abnormality in her carpal tunnel, I would certainly do an Open carpal tunnel release on the left and will have a low threshold for changing the approach during the procedure. She is aware that with surgery there are potential risks and that these include but are not limited to infection, neurovascular or tendon injury, incomplete or no relief of her neurogenic symptoms, pillar pain, clock repairer weakness, and recurrence of carpal tunnel syndrome. She will schedule her left hand to be done at a time that is convenient for her. documented in this encounter Plan of Treatment Upcoming Encounters Date Type Department Care Team (Late st Contact Info) Description 06/05/2024 10:15 AM EST Office Visit [place] [address] Namita Bansal MD [facility] DR [place] [address] documented as of this encounter Goals Goal Patient Goal Type Associated Problems Recent Progress Patient-Stated? Author Exercise 3x per week (30 min per time) Exercise No Keila Arango CDE documented as of this encounter Procedures Procedure Name Priority Date/Time Associated Diagnosis Comments ARTHROSCOPY WRIST W/ RELEASE TRANSVERSE CARPAL LIGAMENT Routine 04/02/2015 12:15 PM EDT Carpal tunnel syndrome on left documented in this encounter Visit Diagnoses Diagnosis Carpal tunnel syndrome on left Carpal tunnel syndrome documented in this encounter Care Teams Grails Web Application Developer Relationship Specialty Start Date End Date Mitchell Yap MD [address] [place] [phone] PCP - General 05/19/10 07/17/23 documented as of this encounter
--- OUTSIDE RECORDS SUMMARY | 2024-04-18 13:17 | XMS_ITS | Encounter Summary ---
Author Organization [facility] [address] Care Team Providers Care Kitchen Bath Designer Name Role Phone Mitchell Yap MD Primary Care Provider [phone] Encounter Details Date Type Department Care Team (Latest Contact Info) Description 05/28/2016 1:00 PM EST - 05/28/2016 11:59 PM [facility] Encounter XRay at [address] [place] [address] Laith Diehl MD [facility] [place] [address] Trigger finger of left thumb Discharge Disposition: Home Social History Tobacco Use [...] Date End Date Diabetic Supplies, Miscellan. Misc Form faxed to [...] needed for Pain. 10 tablet 06/10/2016 06/30/2016 ADVAIR DISKUS 100-50 mcg/dose Disk with Device Inhale 1 puff into the lungs 2 times daily as needed. 01/22/2016 06/02/2016 cholecalciferol, Vitamin D3, 1,000 unit Capsule Take 1,000 Units by mouth daily. 05/22/2018 insulin lispro (HUMALOG) Solution Inject 40-50 Units subcutaneously continuous. 40-50 units continuous via pump, SQ, continuous 50 mL 3 10/24/2015 11/09/2016 blood sugar diagnostic strips (Kind IntelligenceTOUCH ULTRA TEST) Strip use to check blood sugar 8x/daily 800 each 3 10/24/2015 11/09/2016 GLUCAGON EMERGENCY KIT, HUMAN, 1 mg Kit 08/06/2014 017 documented as of this encounter Plan of Treatment Upcoming Encounters Date Type Department Care Team (Late st Contact Info) Description 06/05/2024 10:15 AM EST Office [place] [address] Namita Bansal MD [facility] [place] [address] documented as of this encounter Goals Goal Patient Goal Type Associated Problems Recent Progress Patient-Stated? Author Exercise 3x per week (30 min per time) Exercise No Keila Arango CDE documented as of this encounter Procedures Procedure Name Priority Date/Time Associated Diagnosis Comments XR FINGER(S) MIN 2 VIEWS LEFT Routine 05/28/2016 1:44 PM EST Trigger finger of left thumb documented in this encounter Results * XR Fingers Min 2 views Left (Generic) (05/28/2016 1:44 PM EST) Anatomical Region Laterality Modality Hand Left Digital Radiogra phy Impressions 05/28/2016 2:17 PM EST Diffuse bone demineralization. Otherwise normal. Narrative 05/28/2016 2:17 PM EST EXAMINATION: XR FINGERS MIN 2 VIEWS LEFT (GENERIC) CLINICAL HISTORY: Left trigger thumb TECHNIQUE: PA LEFT hand and AP lateral and oblique of LEFT thumb COMPARISON: None FINDINGS: The bones are diffusely demineralized but no fracture or dislocation is seen. Procedure Note Alpesh De Paz MD - 05/28/2016 EXAMINATION: XR FINGERS MIN 2 VIEWS LEFT (GENERIC) CLINICAL HISTORY: Left trigger thumb TECHNIQUE: PA LEFT hand and AP lateral and oblique of LEFT thumb COMPARISON: None FINDINGS: The bones are diffusely demineralized but no fracture or dislocation isseen. IMPRESSION Diffuse bone demineralization. Otherwise normal. Laith Diehl MD IMG DX ORDERABLES documented in this encounter Visit Diagnoses Diagnosis Trigger finger of left thumb documented in this encounter Care Teams Kitchen Bath Designer Relationship Specialty Start Date End Date Mitchell Yap MD [address] [place] [id number] PCP - General 05/19/10 07/17/23 documented as of this encounter
--- OUTSIDE RECORDS SUMMARY | 2024-04-18 13:17 | XMS_ITS | Encounter Summary ---
Author Organization [place] [address] Care Team Providers Care Recycle Driver Name Role Phone Mitchell Yap MD Primary Care Provider [phone] Encounter Details Date Type Department Care Team (Late st Contact Info) Description 10/16/2015 Telephone [place] [address] [place] [address] Social History Tobacco Use Types Packs/Day Years [...] Telephone Encounter - Luma Conti LD - 10/16/2015 12:12 PM EDT Pt has not received sensors. Re-faxed paperwork to Misti Ladd at [employer] for the off label prescription for the Minimed Paradime 523 sensor. Discussed pt should consider upgrading to the pump thathas threshold suspend. Also re-faxed paperwork to [facility]. documented in this encounter Plan of Treatment Upcoming Encounters Date Type Department Care Team (Late st Contact Info) Description 06/05/2024 10:15 AM EST Office Visit [place] [address] Namita Bansal MD [facility] [place] [address] documented as of this encounter Goals Goal Patient Goal Type Associated Problems Recent Progress Patient-Stated? Author Exercise 3x per week (30 min per time) Exercise No Keila Arango, CDE documented as of this encounter Visit Diagnoses Not on filedocumented in this encounter Care Teams Recycle Driver Relationship Specialty Start Date End Date Mitchell Yap MD [address] [place] [id number] PCP - General 05/19/10 07/17/23 documented as of this encounter
--- OUTSIDE RECORDS SUMMARY | 2024-04-18 13:17 | XMS_ITS | Encounter Summary ---
[place] [address] Care Team Providers Care Equipment Or Machinery Cleaner Name Role Phone Mitchell Yap MD Primary Care Provider [phone] Reason for Visit * Reason Onset Date Comments Diabetes 08/11/2015 Encounter Details Date Type Department Care Team (Late st Contact Info) Description 08/11/2015 Telephone [place] [phone] Abby Campbell APRN [facility] [address] Diabetes Social History Tobacco Use Types Packs/Day Years [...] Miscellaneous Notes * Telephone Encounter - Abby Campbell APRN - 08/11/2015 5:49 PM EST [employer] called pt to review glucose results. She sts they were ok over the weekend. [employer] advised to consider lower basal rates at midnight to .50 and at 5AM to .55 Pt sts she is starting to get some neuropathy symptoms and is worried to lower insulin doses but she will consider. documented in this encounter Plan of Treatment Upcoming Encounters Date Type Department Care Team (Late st Contact Info) Description 06/05/2024 10:15 AM EST Office [place] [address] Namita Bansal MD [facility] [place] [address] documented as of this encounter Goals Goal Patient Goal Type Associated Problems Recent Progress Patient-Stated? Author Exercise 3x per week (30 min per time) Exercise No Keila Arango CDE documented as of this encounter Visit Diagnoses Not on filedocumented in this encounter Care Teams Equipment Or Machinery Cleaner Relationship Specialty Start Date End Date Mitchell Yap MD [address] [place] [address] PCP - General 05/19/10 07/17/23 documented as of this encounter
--- OUTSIDE RECORDS SUMMARY | 2024-04-18 13:17 | XMS_ITS | Encounter Summary ---
[place] [address] Care Team Providers Care Publications Editor Name Role Phone Mitchlel Yap MD Primary Care Provider [phone] Reason for Referral * Consultation (Routine) - Closed Specialty Diagnoses / Procedures Referred By Malka t Referred To Contact Endocrinology Diagnoses Uncontrolled type 1 diabetes mellitus with other specified complication Lin Rojas MD [facility] [place] [address] [facility] [address] [place] [phone] Referral ID Status Reason Start Date Expiration Date V isits Requested Visits Authorized [id number] Closed Consult, Test & Treat 05/25/2016 05/25/2017 1 1 Reason for Visit * Reason Comments Diabetes Encounter Details Date Type Department Care Team (Late st Contact Info) Description 05/25/2016 11:30 AM EST Office [place] [id number] Lin Rojas MD [facility] [place] [address] Uncontrolled type 1 diabetes mellitus with other [...] Sign Reading Time Taken Comments Blood Pressure 153/78 05/25/2016 11:15 AM EST Pulse 76 05/25/2016 11:15 AM EST Temperature - - Respiratory Rate - - Oxygen Saturation - - Inhaled Oxygen Concentration - - Weight 67 kg (147 lb 12.8 oz) 05/25/2016 11:15 A M EST Height 149.9 cm (4' 11) 05/25/2016 11:15 AM EST Body Mass Index 29.85 05/25/2016 11:15 AM EST documented in this encounter Progress Notes * Lin Rojas MD - 05/25/2016 11:30 AM EST Endocrinology Clinic Follow-up Visit Reason for Visit: Follow-up of Diabetes Mellitus Type 1 HISTORY OF PRESENT ILLNESS: Ms. Ebonie Sol is a 61 y.o. year old lady with history significant for DM type 1 previously followed by Abby Campbell APRN, last visit with her was in October 2015, at which time her overnight basal setting had been lowered due to morning fasting hypoglycemia. She states that her BG afterwards were 200s-300s in the AM, so she self-increased that basal rate to something in-between her previous rate and that which Abby had adjusted it to, about 1 month ago. Since then she's been experiencing tight BG fasting again, sometimes as low as 40s. Her family is also concerned because she's been having memory lapses. Date of Diagnosis: 1957 Last HgbA1c: 7.0% (October 2015) Current Diabetes Medication regimen: Insulin pump Minimed 523 - humalog Basal: MN 0.575 4a 0.600 10a 0.450 5p 0.550 6p 0.475 9p 0.450 Bolus: CR - MN 1:14, 1230p 1:13, 1630p 1:14 FSBG regimen: 6-10x/day BG runs all over the place, no pattern. This AM was 50-something fasting, yesterday was 40-something Highest 378 mg/dL - had blurry vision and difficulty concentrating. Was about 1.5 hours post-lunch.Had bolused normally. Happens about 5-6x/wk. 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 No symptoms. Diet: Physical Activity: Smoking: History of complications 1) Nephropathy - Um:cr , sCr 2) Neuropathy - 3) Retinopathy - Last ophtho evaluation - seeing in June, no DR to date. 4) CV disease - LDL 104 PAST MEDICAL HISTORY: Patient Active Problem List Diagnosis Date Noted ??? Hypoglycemia unawareness in type 1 diabetes mellitus 11/05/2015 ??? Carpal tunnel syndrome on left 04/02/2015 ??? Hypertension 02/16/2011 ??? CIS - Entered not Verified 08/28/2010 ??? CIS - type 1 DM MEDICATIONS: Medications 05/25/16 1150 Medication Sig Taking? cholecalciferol, Vitamin D3, 1,000 unit Capsule Take 1,000 Units by mouth daily. Yes Diabetic Supplies, Miscellan. [facility] fax[facility] to [facility] diabetes for insulin pump supplies Yes insulin lispro (HUMALOG) Solution Inject 40-50 Units subcutaneously continuous. 40-50 units continuous via pump, SQ, continuous Yes blood sugar diagnostic strips (ONETOUCH ULTRA TEST) Strip use to check blood sugar 8x/daily Yes multivitamin with minerals (THERA-M) 9-0.4 mg Tablet Take 1 tablet by mouth daily. Yes lisinopril (PRINIVIL;ZESTRIL) 20 mg Tablet Take 1 tablet by mouth daily. Yes ADVAIR DISKUS 100-50 mcg/dose Disk with Device Inhale 1 puff into the lungs 2 times daily as needed. Diabetic Supplies, Miscellan. [facility] Faxed order to [facility] medical for sensors Patient not taking: Reported on 05/25/2016 GLUCAGON EMERGENCY KIT, HUMAN, 1 mg Kit ALLERGIES: Allergies Allergen Reactions ??? Penicillins Hives ??? Prochlorperazine SOCIAL HISTORY: History Smoking Status ??? Former Smoker ??? Types: Cigarettes ??? Quit date: 02/16/1979 Smokeless Tobacco ??? Never Used FAMILY HISTORY: Family History Relation Problem Age of Onset ??? Sister Cancer REVIEW OF SYSTEMS: All 12 systems reviewed and negative except as noted per HPI. PHYSICAL EXAM: Vitals Office Visit from 05/25/2016 in Endocrinology Weight - Scale 67 kg (147 lb 12.8 oz) Height (!) 149.9 cm (4' 11) BSA (Calculated - sq m) 1.67 sq meters BMI (Calculated) 29.9 Heart Rate 76 BP 153/78 Gen: NAD, AAOx3, speaking full sentences, calm pleasant demeanor, slightly overweight habitus Foot exam: no wounds or sores. ASSESSMENT: 61 yo F with DM type 1 c/b hypoglycemia unawareness, having frequent fasting hypoglycemia by measurements as well as memory lapses noted in retrospect by feedback from family members, which may also represent hypoglycemic episodes that she may be unaware of. Her overnight basal rates odd ly seem disproportionately higher than her basal rates during the rest of the day, and considering that she frequently finds her fasting BG to be low, it would make sense to cut back on those basal rates. Will start with making this change and reassess. A CGM will definitely be of benefit for her and is very much indicated in the setting of her hypoglycemia unawareness PLAN: --Change basal rates as follows: MN 0.575 --> 0.450 4a 0.600 --> 0.550 10a 0.450 --> no change 5p 0.550 --> no change 6p 0.475 --> no change 9p 0.450 --> no change --will arrange for CGM, including transmitter -- to see SANTOSH Jeffers today to start that process. --had flu shot already this season. --discussed respite care - sole caregiver of her 96-year old father. --Next follow-up in 6 months with sima Rodríguez 1 hour prior. 25 min of this 40 min face to face visit was spent in counseling the patient on DM mgmt. LIN ROJAS MD Artificial Leather Calender Operatormanager of recruiting Section of Endocrinology [facility] documented in this encounter Plan of Treatment Upcoming Encounters Date Type Department Care Team (Late st Contact Info) Description 06/05/2024 10:15 AM EST Office [place] [address] Namita Bansal MD [facility] [place] [address] Scheduled Referrals Name Type Priority Associated Diagnoses [...] Not Calculated 0 - 29 mcg/mg Cr [facility] Comment: Reference Ranges: <30 [...] 2, 357? 362 Albumin, Urine <3.0 mg/L [facility] Creatinine, Urine 75 mg/dL [facility] Urine specimen (specimen) 11/09/2016 1:22 PM EDT 11/09/2016 1:31 PM EDT Narrative Resulting Agency Comment Spec In Lab Lin Rojas MD URINE ORDERABLES [facility] [place] [address] * (ABNORMAL) Creatinine (11/09/2016 1:13 PM EDT) Creatinine 0.69(L) 0.70 - 1.20 mg/dL [facility] Comment: Please note that the pediatric reference intervals supplied above were not validated at [facility]. Results from pediatric patients should be interpreted [...] the following links into your internet browser. [email or web address] Blood specimen (specimen) 11/09/2016 1:13 PM EDT 11/09/2016 1:20 PM EDT Narrative Resulting Agency Comment Spec In Lab Lin Rojas MD CHEMISTRY ORDERABLES Performing Organization Address [facility] Co de Phone Number [facility] [place] [address] * LDL Cholesterol, Direct (11/09/2016 1:13 PM EDT) LDL Cholesterol, Direct 107 <=190 mg/dL [facility] Blood specimen (specimen) 11/09/2016 1:13 PM EDT 11/09/2016 1:20 PM EDT Narrative Resulting Agency Comment Spec In Lab Lin Rojas MD CHEMISTRY ORDERABLES Performing Organization Address [facility] Co de Phone Number [facility] [place] [address] * (ABNORMAL) Hemoglobin A1c (11/09/2016 1:13 PM EDT) Hemoglobin A1c 6.9(H) 4.3 - 5.6 % [facility] [...] 36: Suppl. 1, S67-74 Estimated Average Glucose 151 mg/dL [facility] Comment: [...] into estimated average glucose values. ??Diabetes Care 2008:31(8):1615-1024. Blood specimen (specimen) 11/09/2016 1:13 PM EDT 11/09/2016 1:20 PM EDT Narrative Resulting Agency Comment Spec In Lab Lin Rojas MD CHEMISTRY ORDERABLES [facility] [place] [address] documented in this encounter Visit Diagnoses Diagnosis Uncontrolled type 1 diabetes mellitus with other specified complication documented in this encounter Care Teams Publications Editor Relationship Specialty Start Date End Date Mitchell Yap MD [address] [place] [id number] PCP - General 05/19/10 07/17/23 documented as of this encounter
--- OUTSIDE RECORDS SUMMARY | 2024-04-18 13:17 | XMS_ITS | Encounter Summary ---
Author Organization [facility] [place] [address] Care Team Providers Care Outside Machinist Supervisor Name Role Phone Mitchell Yap MD Primary Care Provider [phone] Reason for Visit * Auth/Cert Specialty Diagnoses / Procedures Referred By Malka vera Referred To Contact Diagnoses trigger finger, thumb Procedures PRO INCISE FINGER TENDON SHEATH TENDON SHEATH INCISION (TRIGGER FINGER) Referral ID Status Reason Start Date Expiration Date Visits Re quested Visits Authorized [id number] 1 1 Encounter Details Date Type Department Care Team (Latest Contact Info) Description 06/10/2016 11:42 AM EST - 06/10/2016 1:[address] [facility] Hospital Encounter [place] [phone] Jean Diehl MD [facility] [place] [address] Trigger thumb of left hand Discharge Disposition: [...] During clinic hours M-F 8-4:30 please call [phone] If it is after 5:00PM on a weekday or a weekend and it is of an urgent nature please call [phone] and ask for the on-call orthopaedic resident. [...] Ortho 3A [facility] 11/09/2016 12:30 PM JOHNATHON, VIVI A [facility] 11/09/2016 1:30 PM Abby Campbell APRN Le[facility] Endo [facility] 11/23/2016 1:00 PM Jenna Chandler MD Leb Neuro [facility] documented in this encounter Medications at Time of Discharge Medication Sig Dispensed Refills Start Date End Date Diabetic Supplies, Miscellan. [facility] Form faxed to [facility] diabetes for insulin pump supplies 1 each 3 01/05/2016 multivitamin with minerals (THERA-M) 9-0.4 mg Tablet Take 1 tablet by mouth daily. lisinopril (PRINIVIL;ZESTRIL) 20 mg Tablet Take 1 tablet by mouth daily. 30 tablet 09/25/2014 traMADol (ULTRAM) 50 mg Tablet Take 1 tablet by mouth every 6 hours as needed for Pain. 10 tablet 06/10/2016 06/30/2016 Diabetic Supplies, Miscellan. [facility]WO faxed to [facility] 100 each 12 06/06/2016 06/14/2016 cholecalciferol, [...] LIGAMENT performed by Jean Diehl MD at [facility] Home Medications: Prescriptions Prior to Admission [...] at Unknown time ??? Diabetic Supplies, Miscellan. [facility] faxed to [facility] 100 each 12 ??? Diabetic Supplies, Miscellan. [facility] Form faxed to [facility] diabetes for insulin pump supplies [...] Diehl MD - 06/10/2016 12:03 PM EST [facility] Operative Note Patient Name: Ebonie Sol : [id number] MR#: [id number] Case Date: 06/10/2016 Surgeon: Surgeon(s) and Role: [...] preoperative time- out was performed as per [facility] protocol. 3 mL of 1% lidocaine with [...] Operative Note Patient Name: Ebonie Sol : [id number] MR#: [id number] Case Date: 06/10/2016 Surgeon: Surgeon(s) and Role: [...] 10:15 AM EST Office [place] [address] Namita Bansal MD [facility] [place] [address] documented as of this encounter Goals Goal [...] Given 06/10/2016 12:05 PM EST 300 mg documented in this encounter Active and Recently Administered Medications Times are shown in EST. Scheduled Medication Order 06/08/2016 06/09/2016 06/10/2016 acetaminophen (TYLENOL) tablet 1,000 mg 1,000 mg, Oral, EVERY 8 HOURS SCHEDULED, First dose on Kelly 16 at 1400, Until Discontinued, Maximum total acetaminophen [...] on Kelly 06/10/16 at 1215, Until Kelly 16 at 1338, Day of Surgery (Day of Procedure) 1213 (New Bag - Prov ider: Lorraine Macdonald CRNA)1253 (Stopped - Provider: Nona Sarabia CRNA) PRN Medication Order 06/08/2016 06/09/2016 06/10/2016 lidocaine (XYLOCAINE) 10 mg/mL (1 %) injection 3 mg 3 mg (0.3 mL), Subcutaneous, ONCE PRN, 1 dose, Starting on Kelly 06/10/16 at 1159, Until Kelly 16 at 1338, for discomfort with PIV insertion, [...] EVERY 1 MIN PRN, Starting on Kelly 06/10/16 at 1159, Until Kelly 16 at 1338, flush, Flush pertains to all indwelling lines. Flush per protocol found in the job aid using the link provided on this medication record., Day of Surgery (Day of Procedure), Routine No Frequency Medication Order 06/08/2016 06/09/2016 06/10/2016 clindamycin (CLEOCIN) 600 mg/50 mL infusion 1 dose, Starting on Kelly 06/10/16 at 1203, Until Kelly 16 at 1224, BRIDGET FREEDMAN: cabinet override 1224 (Given - Provid er: Lorraine Macdonald CRNA) documented in this encounter Care Teams Outside Machinist Supervisor Relationship Specialty Start Date End Date Mitchell Yap MD [address] [place] [address] PCP - General 05/19/10 07/17/23 documented as of this encounter
--- OUTSIDE RECORDS SUMMARY | 2024-04-18 13:17 | XMS_ITS | Encounter Summary ---
[place] [address] Care Team Providers Care Plate Put In Worker Name Role Phone Mitchell Yap MD Primary Care Provider [phone] Reason for Visit * Reason Comments Diabetes Encounter Details Date Type Department Care Team (Latest Contact Info) Description 11/05/2015 11:00 AM EDT Office Visit [place] [address] Abby Campbell, [facility] [place] [address] Diabetes mellitus type 1, uncomplicated Social History [...] Sign Reading Time Taken Comments Blood Pressure 138/58 11/05/2015 11:18 AM EDT Pulse 76 11/05/2015 11:18 AM EDT Temperature - - Respiratory Rate - - Oxygen Saturation - - Inhaled Oxygen Concentration - - Weight 62.1 kg (137 lb) 11/05/2015 11:18 AM EDT Height 149.9 cm (4' 11) 11/05/2015 11:18 AM EDT Body Mass Index 27.67 11/05/2015 11:18 AM EDT documented in this encounter Patient Instructions * Patient Instructions* Abby Campbell APRN - 11/05/2015 12:00 PM EDT Vit D 1000 iu's daily Call for appointment with telegraph repeater technician Luma Conti when enlite sensor arrives documented in this encounter Progress Notes * Abby Campbell APRN - 11/05/2015 6:11 PM EDT DATE OF VISIT: 11/05/15 REASON FOR VISIT: Followup type 1 DM in continued excellent control with hypoglycemia unawareness. BRIEF HISTORY: Presents and states glucose level dropped to the 50s while she was Driving to this appointment, but she always carries treatment to manage a low glucose level. Date of diagnosis of diabetes: 1957. Complications: Has hypoglycemia unawareness. SBGM 10-15 times a day. Reason for higher frequency testing is to avoid severe hypoglycemia. She suspends the pump when she has physical activity or when she has a low glucose level. Diabetes regimen: MiniMed 523 pump. Basal rates at midnight 0.55, at 4 a.m. 0.575, at 10 a.m. 0.45, 1700 0.55, 1800 0.475, 2100 0.45. Twenty-four hour meal plan: Follows the recommendations from our DCDE visits. 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 EYES: No recent vision changes. No recent headaches or chest pain or shortness of breath. No recent GI symptoms. Appetite is okay. Sleep pattern varies. Extremities are okay. PHYSICAL EXAM: APPEARANCE: She appears in excellent health. Pleasant and talkative with good eye contact. EYES: No retinopathy with green light exam. NECK: No thyromegaly or lymphadenopathy. HEART: Regular rate and rhythm. No murmurs. LUNGS: Clear to auscultation. FEET: Skin is normal. Pulses are normal. NEURO: Normal sensation to 10-g of pressure. Hemoglobin A1C 7.0%, previous was 7.2%. IMPRESSION AND PLAN: DM type 1 with hypoglycemia unawareness. Patient brought approval level from her insurance. Telephone call to [facility]; they requested a copy of that letter to be faxed to them, which it was. Hopefully she will be getting the Enlite sensor transmitter and sensors so she can be warned of low glucose levels. Also, encouraged patient to consider lowering her basal rates to avoid hypoglycemia, but she states she gets glucose levels in the 200s and rarely in the 300s and then she feels terrible when that happens too. She is hoping that the sensor will help avoid glucose levels lower than 90. Also, long discussion with patient to take care of her emotional health. Encouraged to have her father placed in respite for at least 2 weeks every so often so she and her can enjoy time with their grandchildren. Patient does an excellent job managing her glucose levels and works hard at managing her diabetes, but it seems she is very busy taking care of other people and not taking enough pleasure time for herself. Return to office in [address] Rojas. Will check hemoglobin A1C. This was a 39 minute office visit with 38 minutes spent counseling [id number] with patient in the management of glucose levels, helping her to obtain Enlite transmitters and sensors. She had problem with the tape from the previous sensor she used and has met with telegraph repeater technician in the past to help problem solve regarding tape/skin Issues. Recent Results (from the past 72 hour(s)) Creatinine Result Value Ref Range Creatinine 0.70 0.70 - 1.20 mg/dL Estimated GFR >60 >=60 Hemoglobin A1c Result Value Ref Range Hemoglobin A1C 7.0 (H) 4.3 - 5.6 % Est Avg Gluc 154 mg/dL TSH Result Value Ref Range TSH 1.39 0.27 - 4.20 mcIU/mL HDL/Cholesterol Profile Result Value Ref Range Chol, Total 183 <=199 mg/dL HDL 76 >=40 mg/dL Chol/HDL Ratio 2.4 ratio LDL Cholesterol, Direct Result Value Ref Range LDL Chol Direct 104 (H) <=99 mg/dL Microalbumin, urine, random Result Value Ref Range U Creatinine 92 mg/dL U Ran Malb Conc <3.0 mg/L U Ran Malb Calc <3 mcg/mg Cr documented in this encounter Plan of Treatment Upcoming Encounters Date Type Department Care Team (Late st Contact Info) Description 06/05/2024 10:15 AM EST Office Visit [place] [address] Namita Bansal MD [facility] [place] [address] documented as of this encounter Goals Goal Patient Goal Type Associated Problems Recent Progress Patient-Stated? Author Exercise 3x per week (30 min per time) Exercise No Keila Arango, CHRISTIANO documented as of this encounter Visit Diagnoses Diagnosis Diabetes mellitus type 1, uncomplicated Type I (juvenile type) diabetes mellitus without mention of complication, not stated as uncontrolled documented in this encounter Care Teams Plate Put In Worker Relationship Specialty Start Date End Date Mitchell Yap MD [address] [place] [address] PCP - General 05/19/10 07/17/23 documented as of this encounter
--- OUTSIDE RECORDS SUMMARY | 2024-04-18 13:17 | XMS_ITS | Encounter Summary ---
Author Organization [facility] [place] [address] Care Team Providers Care Leaf Binner Name Role Phone Mitchell Yap MD Primary Care Provider [phone] Encounter Details Date Type Department Care Team (Late st Contact Info) Description 09/25/2014 9:30 AM EDT Office [place] [address] [facility] [place] [address] Type I (juvenile type) diabetes mellitus with neurological manifestations, not stated as uncontrolled Social History Tobacco Use Types Packs/Day Years Used Date Smoking Tobacco: Former Cigarettes Q uit: 02/16/1979 Smokeless Tobacco: Never Sex and Gender Information Value Date Recorded Sex Assigned at Female 11/02/2020 3:40 PM EDT Gender Identity Female 11/02/2020 3:40 PM EDT Sexual Orientation Straight 11/02/2020 3: 40 PM EDT documented as of this encounter Progress Notes * Ebonie Betancourt, SANTOSH - 09/26/2014 9:49 AM EDT Diabetes Education and Medical Nutrition Therapy Ebonie has had type 1 diabetes x 52 years On MiniMed 523 insulin pump. Downloaded Checking BG 5+ x a day Still waiting 5 days between infusion set changes. She said it is because she is so busy she just ends up changing when insulin runs out. She knows BG levels rise after 3rd day and will make an attempt to change every 3 days. She needs to add cannula fill to set change. Basal rates at midnight, 0.575; at 5 a.am., 0.6; at 10 a.m., 0.45; at 1700, 0.5; at 1800, 0.475; [id number], 0.425. Total basal 12.225. [id number] at midnight, 1:14, at 12:30, 13, at 18:30, 14. Sensitivity 55. Target glucose 100 to 140. Active insulin x 3 hours. Daily bolus last 2 weeks: average 12.8 units, 52% bolus and 48% basal. HbA1c higher than usual at 7.6% (TDD was less than in the past) Put temp basal on % today and discussed how and when to use. Weight: 150 pounds (down 9) She has been following the DASH diet. When she went to her PCP's visit, her BP was very high so started this. Eating a lot more fruits an vegetables Hardee seeds Watching sodium closely CGM: Enlite Sensor put on today with one of endocrine's transmitters. We used Bard wipe and IV 3000 under the transmitter because she developed a rash from the transmitter before. She would really like castro able to use it because of her severe hypoglycemia unawareness. Settings: Low alert set at 70 with 30 min repeat High at 275 Sebastien remember off Sebastien repeat at 1 hour If this works we will need to do an off label RX for Enlite sensors She will need to re-program her transmitter ID into her pump. documented in this encounter Plan of Treatment Upcoming Encounters Date Type Department Care Team (Late st Contact Info) Description 06/05/2024 10:15 AM EST Office [place] [address] [facility] [place] [address] documented as of this encounter Goals Goal Patient Goal Type Associated Problems Recent Progress Patient-Stated? Author Exercise 3x per week (30 min per time) Exercise No Keila Arango, CDE documented as of this encounter Visit Diagnoses Diagnosis Type I (juvenile type) diabetes mellitus with neurological manifestations, not stated as uncontrolled(250.61) Type I (juvenile type) diabetes mellitus with neurological manifestations, not stated as uncontrolled documented in this encounter Care Teams Leaf Binner Relationship Specialty Start Date End Date Mitchell Yap MD [address] [place] [address] PCP - General 05/19/10 07/17/23 documented as of this encounter
--- OUTSIDE RECORDS SUMMARY | 2024-04-18 13:17 | XMS_ITS | Encounter Summary ---
Author Organization [facility] [place] [address] Care Team Providers Care Algorithm Developer Name Role Phone Mitchell Yap MD Primary Care Provider [phone] Encounter Details Date Type Department Care Team (Late st Contact Info) Description 09/04/2015 Notes [place] [id number] [place] [address] Social History Tobacco Use Types Packs/Day Years [...] Progress Notes * Luma Conti LD - 09/04/2015 2:30 PM EST Form Faxed to [facility] for CMN for Insulin Pump Supplies for [place] [address] documented in this encounter Plan of Treatment Upcoming Encounters Date Type Department Care Team (Late st Contact Info) Description 06/05/2024 10:15 AM EST Office [place] [address] Namita Bansal MD [facility] [place] [address] documented as of this encounter Goals Goal Patient Goal Type Associated Problems Recent Progress Patient-Stated? Author Exercise 3x per week (30 min per time) Exercise No Keila Arango, CHRISTIANO documented as of this encounter Visit Diagnoses Not on filedocumented in this encounter Care Teams Algorithm Developer Relationship Specialty Start Date End Date Mitchell Yap MD [address] [place] [address] PCP - General 05/19/10 07/17/23 documented as of this encounter
--- OUTSIDE RECORDS SUMMARY | 2024-04-18 13:18 | XMS_ITS | Encounter Summary ---
[place] [address] Care Team Providers Care Pewter Caster Name Role Phone Mitchell Yap MD Primary Care Provider [phone] Reason for Referral * Consultation (Routine) - Closed Specialty Diagnoses / Procedures Referred By Malka t Referred To Contact Endocrinology Diagnoses DM type 1 (diabetes mellitus, type 1) Radha Miller MD [facility] [place] [address] Keila Arango, Lulu [facility] [place] [address] Referral ID Status Reason Start Date Expiration Date V isits Requested Visits Authorized [id number] Closed Continuity of Care 11/24/2012 05/23/2013 1 1 Encounter Details Date Type Department Care Team (Late st Contact Info) Description 11/24/2012 Orders [place] [address] Radha Miller MD [facility] [place] [address] DM type 1 (diabetes mellitus, type 1) (Primary Dx) Social History Tobacco Use Types Packs/Day Years Used Date Smoking Tobacco: Former Cigarettes Q uit: 02/16/1979 Sex and Gender Information Value Date Recorded Sex Assigned at Female 11/02/2020 3:40 PM EDT Gender Identity Female 11/02/2020 3:40 PM EDT Sexual Orientation Straight 11/02/2020 3: 40 PM EDT documented as of this encounter Plan of Treatment Upcoming Encounters Date Type Department Care Team (Late st Contact Info) Description 06/05/2024 10:15 AM EST Office [place] [address] Namita Bansal MD [facility] [place] [address] Scheduled Referrals Name Type Priority Associated Diagnoses Orde r Schedule Referral to Diabetic Education Outpatient Referral Routine DM type 1 (diabetes mellitus, type 1) Ordered: 11/24/2012 documented as of this encounter Goals Goal Patient Goal Type Associated Problems Recent Progress Patient-Stated? Author Exercise 3x per week (30 min per time) Exercise Keila Espinoza, CHRISTIANO documented as of this encounter Visit Diagnoses Diagnosis DM type 1 (diabetes mellitus, type 1)- Primary Type I (juvenile type) diabetes mellitus without mention of complication, not stated as uncontrolled documented in this encounter Care Teams Pewter Caster Relationship Specialty Start Date End Date Mitchell Yap MD [address] [place] [address] PCP - General 05/19/10 07/17/23 documented as of this encounter
--- OUTSIDE RECORDS SUMMARY | 2024-04-18 13:18 | XMS_ITS | Encounter Summary ---
[place] [address] Care Team Providers Care Planning And Analysis Manager Name Role Phone Mitchell Yap MD Primary Care Provider [phone] Reason for Visit * Reason Comments Diabetes Encounter Details Date Type Department Care Team (Late st Contact Info) Description 02/16/2011 9:00 AM EDT Office [place] [address] Abby Campbell APRN [facility] [place] [address] Diabetes (Primary Dx) Discharge Disposition: Home Social History Tobacco Use Types Packs/Day Years Used Date Smoking Tobacco: Former Cigarettes Q uit: 02/16/1979 Sex and Gender Information Value Date Recorded Sex Assigned at Female 11/02/2020 3:40 PM EDT Gender Identity Female 11/02/2020 3:40 PM EDT Sexual Orientation Straight 11/02/2020 3: 40 PM EDT documented as of this encounter Patient Instructions * Patient Instructions* Abby Campbell APRN - 02/16/2011 4:39 PM EDT Continue the excellent job that you do managing your glucose levels. documented in this encounter Progress Notes * Abby Campbell APRN - 02/16/2011 4:37 PM EDT OFFICE VISIT NOTE DATE OF VISIT: 02/16/2011 REASON FOR VISIT: Followup type 1 DM, in continued good overall control, using an [place] insulin pump and Dexcom sensor. BRIEF HISTORY: Presents for followup. Had appointment earlier this a.m. with RNCHRISTIANO. See basal rates from that note. Total daily doses ~ 31.91 units average. 24-HOUR MEAL PLAN: See RNCHRISTIANO note. PREVENTION STRATEGIES: Does take an aspirin and an STEFANY inhibitor. Up-to-date with dilated eye exam and dental appointments. REVIEW OF SYSTEMS: Depression and Mood: Discusses some higher stress at work. Eyes: No recent vision changes. No headaches. No chest pain. No shortness of breath. No GI symptoms. Appetite is good. Sleep Pattern: States she does not sleep well. She tried Ambien and did not like how it made her feel. Also, she needs to be alert because of her job. She is often gets calls during the night from work. PHYSICAL ACTIVITY: Walks the dog. Walks at work. PHYSICAL EXAMINATION: Appearance: She appears in excellent health. Eyes: No retinopathy by green light exam. Neck: No thyromegaly or lymphadenopathy. Heart: Regular rate and rhythm. No murmurs. Lungs are clear to auscultation. Feet: Skin is normal. Pulses are normal. Neuro: Normal sensation to 10 g of pressure. LAB DONE TODAY: Hemoglobin A1c, result not available during office visit. Previous was 6.8%. At time of dictation=6.9% IMPRESSION AND PLAN: Diabetes mellitus type 1, in continued very good control. No change in regimen. Does an excellent job managing her glucose levels. Of this 29-minute office visit, I spent 28 minutes counseling with the patient on the following issues: Target blood glucose ranges, prevention and treatment of hypoglycemia, reviewing insulin pump download data. Return to office in six months. Will check hemoglobin A1c and other labs that she is due for. documented in this encounter Plan of Treatment Upcoming Encounters Date Type Department Care Team (Late st Contact Info) Description 06/05/2024 10:15 AM EST Office [place] [address] Namita Bansal MD [facility] [place] [address] documented as of this encounter Goals Goal Patient Goal Type Associated Problems Recent Progress Patient-Stated? Author Exercise 3x per week (30 min per time) Exercise No Keila Arango CDE documented as of this encounter Procedures Procedure Name Priority Date/Time Associated Diagnosis Comments TSH Routine 02/16/2011 9:19 AM EDT Diabetes LDL CHOLESTEROL, DIRECT Routine 02/16/2011 9:19 AM EDT Diabetes HDL/CHOL PROFILE Routine 02/16/2011 9:19 AM EDT Diabetes HEMOGLOBIN A1C Routine 02/16/2011 9:19 AM EDT Diabetes HEPATIC FUNCTION PANEL Routine 02/16/2011 9:19 AM EDT Diabetes documented in this encounter Results * Hepatic function panel (02/16/2011 9:19 AM EDT) Protein, Total 7.3 6.4 - 8.3 gm/dL [facility] Albumin 4.3 3.2 - 5.2 gm/dL [facility] Aspartate Aminotransferase Not Perf 0 - 30 unit/L [facility] Comment:Specimen hemolyzed Alanine Aminotransferase 22 0 - 30 unit/L [facility] Alkaline Phosphatase 102 40 - 104 unit/L [facility] Bilirubin, Total 0.5 0.2 - 1.3 mg/dL [facility] Bilirubin, Direct 0.1 0.0 - 0.3 mg/dL [facility] Blood specimen (specimen) 02/16/2011 9:19 AM EDT 02/16/2011 9:23 AM EDT Torsten Peguero MD CHEMISTRY ORDERABLES Performing Organization Address [facility] de Phone Number [facility] * TSH (02/16/2011 9:19 AM EDT) Thyroid Stimulating Hormone 2.87 0.27 - 4.20 mcIU/mL [facility] Blood specimen (specimen) 02/16/2011 9:19 AM EDT 02/16/2011 9:23 AM EDT Torsten Peguero MD CHEMISTRY ORDERABLES Performing Organization Address [facility] de Phone Number [facility] * LDL cholesterol, direct (02/16/2011 9:19 AM EDT) LDL Cholesterol, Direct 99 <=99 mg/dL [facility] Comment: The National Cholesterol Education Program (NCEP) has set the following guidelines for LDL Cholesterol: Reference range: ?? Optimal: ?<100 mg/dL ?? Near Optimal/Above Optimal: ?? 100-129 mg/dL ?? Borderline high: ?130-159 mg/dL ?? High: ? 160-189 mg/dL ?? Very high: ?>eg=821 mg/dL SUJATA 2001: 285(19):2390-7726 Blood specimen (specimen) 02/16/2011 9:19 AM EDT 02/16/2011 9:23 AM EDT Torsten Peguero MD CHEMISTRY ORDERABLES Performing Organization Address [facility] de Phone Number [facility] * HDL cholesterol (02/16/2011 9:19 AM EDT) Cholesterol, Total 184 <=199 mg/dL [facility] Comment: Recommendations of the NCEP Adult Treatment Panel for the following risk cutoff thresholds for the [place] population: Desirable: <200 mg/dL Borderline High: 200-239 mg/dL High: > or = 240 mg/dL HDL Cholesterol 82 >=40 mg/dL [facility] Comment: Reference range: ??Low HDL: ?? < 40 mg/dL ??Normal: ?40-60 mg/dL ??Desirable: > 60 mg/dL SUJATA 2001; 285(19):6656-5319 Cholesterol/HDL Ratio 2.2 ratio [facility] Comment: A Cholesterol to HDL ratio below 4:1 is desirable. ??Studies suggest that increased CAD risk occurs at ratios above 5 for females and above 6 for men. ? [place] Heart Association ??(http://www.americanheart.org) ? Ani Int Med, 1994; 121:641 ? AM J Med, 1998; 105(1A):48S Blood specimen (specimen) 02/16/2011 9:19 AM EDT 02/16/2011 9:23 AM EDT Torsten Peguero MD CHEMISTRY ORDERABLES [facility] * (ABNORMAL) Hemoglobin A1c (02/16/2011 9:19 AM EDT) Hemoglobin A1c 6.9(H) 4.3 - 6.1 % [facility] Estimated Average Glucose 151 mg/dL [facility] Comment: eAG equivalents for HbA1c percentages: HbA1c(%) ?eAG(mg/dL) 6.0 ?126 6.5 ?140 7.0 ?154 7.5 ?169 8.0 ?183 8.5 ?197 9.0 ?212 9.5 ?226 10.0 ? 240 Limitations: The eAG calculation has not been validated on women, individuals below 18 years old and above 70 years old, and individuals with hemoglobinopathies. Additional resources are available on the ADA website: ??http://professional.diabetes.org/glucosecalculator.aspx Reference: Sam COPELAND, Leatha Rivera, Blanca R, et al. ??Translating the A1C assay into estimated average glucose values. ??Diabetes Care 2008:31(8):1277-3874. Blood specimen (specimen) 02/16/2011 9:19 AM EDT 02/16/2011 9:23 AM EDT Torsten Peguero MD CHEMISTRY ORDERABLES Performing Organization Address City/State/[facility] Co or Phone Number [facility] documented in this encounter Visit Diagnoses Diagnosis Diabetes- Primary Type II or unspecified type diabetes mellitus without mention of complication, not stated as uncontrolled documented in this encounter Care Teams Planning And Analysis Manager Relationship Specialty Start Date End Date Mitchell Yap MD [address] [place] [address] PCP - General 05/19/10 07/17/23 documented as of this encounter
--- OUTSIDE RECORDS SUMMARY | 2024-04-18 13:18 | XMS_ITS | Encounter Summary ---
Author [place] [address] Care Team Providers Care Robotics Mechanic Name Role Phone Mitchell Ypa MD Primary Care Provider [phone] Reason for Visit * Reason Comments Diabetes Encounter Details Date Type Department Care Team (Late st Contact Info) Description 11/27/2012 9:30 AM EDT Office [place] [phone] [facility] [place] [address] Diabetes type 1, uncontrolled (Primary Dx) Discharge Disposition: Home Social History [...] Sign Reading Time Taken Comments Blood Pressure 128/58 11/27/2012 9:57 AM EDT Pulse 85 11/27/2012 9:57 AM EDT Temperature - - Respiratory Rate - - Oxygen Saturation - - Inhaled Oxygen Concentration - - Weight 69 kg (152 lb 3.2 oz) 11/27/2012 9:57 AM EDT Height - - Body Mass Index 30.74 08/12/2011 1:34 PM EST documented in this encounter Patient Instructions * Patient Instructions* Keila Arango RN - 11/27/2012 4:40 PM EDT This patient will order a new Medtronic pump. documented in this encounter Progress Notes * Keila Arango RN - 11/27/2012 1:05 PM EDT Diabetes Self-Management Education Program Follow- up Visit Referring Provider: MITCHELL YAP MD Type of diabetes: Diabetes mellitus Type I, under good control. Medtronic pump Mn=mn= 0.4 3= 0.4 4:30= 0.4 10= 0.45 17= 0.5 18= 0.45 21= 0.4 Total basal= 10.20 units Carb ratios Mn= 14:1 12:30= 13:1 18:30= 14:1 CF= 55 BG target 100-115 Reassessment Ratings: 1=needs instruction 2=needs review 3=comprehends rodriguez points 4=demonstrates competency N/A= not assessed Topic Reassessment Rating Comment/Re-education Knowledge of diabetes disease process 3 Nutrition Management 3 Down 9 lbs since 08/09 Breakfast: granola bar (high protein), tea Lunch: salad, cottage cheese, tea, water Dinner: sausage, salad, salsa Snacks only if low Very disciplined. She is eating less and doing well. Understanding of Physical Activity 3 Daily does 20 minutes on the treadmill. Reduces her insulin and overall doesn't get lows. Medication Use 3 No changes Patient has ordered a new pump. She has a cracked reservoir. Upgrading to the newest pump. Monitoring and using results 3 Pump downloaded. Tests 8-10x/day bgs range from 60-200's Targets reviewed. Preventing Acute Complications 3 + sensor. Uploaded data. We ran out of time as she is to see Abby Campbell IT SALES EXECUTIVE today next. Data given to patient to review with Preventing Chronic Complications, Risk Reduction 3 Psychosocial Adjustment 3 Behavior Change Strategies 3 Behavior goals reviewed Last behavior goal: Patient to carry treatment for low blood sugars Goal Achievement: 100% New Goal: Patient to order new Medtronic pump Follow-up/DSMS Plan: Follow up with PCP soon Time Spent Diabetes Education/Medical Nutrition Therapy: 22 minutes documented in this encounter Plan of Treatment Upcoming Encounters Date Type Department Care Team (Late st Contact Info) Description 06/05/2024 10:15 AM EST Office [place] [address] [facility] [place] [address] documented as of this encounter Goals Goal Patient Goal Type Associated Problems Recent Progress Patient-Stated? Author Exercise 3x per week (30 min per time) Exercise No Keila Arango CDE documented as of this encounter Visit Diagnoses Diagnosis Diabetes type 1, uncontrolled- Primary Type I (juvenile type) diabetes mellitus without mention of complication, uncontrolled documented in this encounter Care Teams Robotics Mechanic Relationship Specialty Start Date End Date Mitchell Yap MD [address] [place] [address] PCP - General 05/19/10 07/17/23 documented as of this encounter
--- OUTSIDE RECORDS SUMMARY | 2024-04-18 13:18 | XMS_ITS | Encounter Summary ---
[place] [address] Care Team Providers Care Tobacco Stemmer Name Role Phone Mitchell Yap MD Primary Care Provider [phone] Encounter Details Date Type Department Care Team (Late st Contact Info) Description 04/02/2010 [place] [phone] Abby Campbell APRN [facility] [place] [address] Social History Tobacco Use Types Packs/Day Years Used Date Smoking Tobacco: Never Assessed Sex and Gender Information Value Date Recorded Sex Assigned at Female 11/02/2020 3:40 PM EDT Gender Identity Female 11/02/2020 3:40 PM EDT Sexual Orientation Straight 11/02/2020 3: 40 PM EDT documented as of this encounter Plan of Treatment Upcoming Encounters Date Type Department Care Team (Late st Contact Info) Description 06/05/2024 10:15 AM EST Office Visit [place] [phone] Namita Bansal MD [facility] [place] [address] [phone] (work) documented as of this encounter Procedures Procedure Name Priority Date/Time Associated Diagnosis Comments U ALBUMIN/CRE RATIO Routine 04/02/2010 9 :32 AM EDT HEMOGLOBIN A1C ERINN 04/02/2010 9:26 AM EDT documented in this encounter Results * MICROALBUMIN LEVEL RANDOM URINE (04/02/2010 9:32 AM EDT) Creatinine, Urine 133 mg/dL [facility] Albumin, Urine <3.0 mg/L [facility] R [facility]NI[facility] Albumin / Creatinin Ratio, Urine <2 mcg/mg Cr [facility] Comment: Reference Range* Random collection (mcg/mg creatinine) Normal ?<30 Microalbuminuria ?? 30 - 300 Clinical Albuminuria ?? >300 *[place] Diabetes Association. Diabetic Nephropathy. Diabetes Care 1997;(Suppl 1):S24-S27 Exercise within 24 hour, infection, fever, CHF, marked hyperglycemia, and marked hypertension may elevate urinary albumin excretion over baseline values. Urine specimen (specimen) 04/02/2010 9:32 AM EDT 04/02/2010 9:50 AM EDT Abby Campbell APRN URINE ORDERABLES [facility] * (ABNORMAL) HEMOGLOBIN A1C (04/02/2010 9:26 AM EDT) Hemoglobin A1c 7.5(H) 4.3 - 6.1 % [facility] Estimated Average Glucose 169 mg/dL [facility] Comment: eAG equivalents for HbA1c percentages: [...] ADA website: ??http://professional.diabetes.org/glucosecalculator.aspx Reference: Sam COPELAND, Leatha J, Blanca R, et al. ??Translating the A1C assay into estimated average glucose values. ??Diabetes Care 2008:31(8):0242-3714. Blood specimen (specimen) 04/02/2010 9:26 AM EDT 04/02/2010 9:49 AM EDT Abby Campbell BAND LEADER CHEMISTRY ORDERABLE S Performing Organization Address City/State/[facility] Co de Phone Number [facility] documented in this encounter Visit Diagnoses Not on filedocumented in this encounter Care Teams Tobacco Stemmer Relationship Specialty Start Date End Date Mitchell Yap MD [address] [place] [address] PCP - General 05/19/10 07/17/23 documented as of this encounter
--- OUTSIDE RECORDS SUMMARY | 2024-04-18 13:18 | XMS_ITS | Encounter Summary ---
[place] [address] Care Team Providers Care Fermenter Wine Name Role Phone Mitchell Yap MD Primary Care Provider [phone] Reason for Referral * Consultation (Routine) - Entered in Error Specialty Diagnoses / Procedures Referred By Malka vera Referred To Contact Diabetes Services Diagnoses Type I (juvenile type) diabetes mellitus without mention of complication, not stated as uncontrolled Abby Campbell APRN [facility] [place] [address] [facility] Diabetic Education [address] [place] [phone] Referral ID Status Reason Start Date Expiration Date Visits Requested Visits Authorized [id number] Entered in Error Continuity of Care 06/01/2012 11/28/2012 1 1 Encounter Details Date Type Department Care Team (Late st Contact Info) Description 06/01/2012 Orders [place] [address] Abby Campbell APRN [facility] [place] [address] DM w/o complication type I (Primary Dx) Social History Tobacco Use Types [...] 10:15 AM EST Office [place] [address] Namita Bansal MD [facility] [place] [address] Scheduled Referrals Name Type Priority Associated Diagnoses Orde r Schedule Referral to Diabetic Education Outpatient Referral Routine DM w/o complication type I Ordered: 06/01/2012 documented as of this encounter Goals Goal Patient Goal Type Associated Problems Recent Progress Patient-Stated? Author Exercise 3x per week (30 min per time) Exercise No Keila Arango, CDE documented as of this encounter Visit Diagnoses Diagnosis Type I (juvenile type) diabetes mellitus without mention of complication, not stated as uncontrolled- Primary documented in this encounter Care Teams Fermenter Wine Relationship Specialty Start Date End Date Mitchell Yap MD [address] [place] [address] PCP - General 05/19/10 07/17/23 documented as of this encounter
--- OUTSIDE RECORDS SUMMARY | 2024-04-18 13:18 | XMS_ITS | Encounter Summary ---
[place] [address] Care Team Providers Care Evaporator Helper Name Role Phone Mtichell Yap MD Primary Care Provider [phone] Reason for Visit * Reason Onset Date Comments Other 06/09/2012 Encounter Details Date Type Department Care Team (Late st Contact Info) Description 06/09/2012 Telephone [place] [phone] Keila Arango, [facility] [place] [address] Other Social History Tobacco Use Types Packs/Day Years Used Date Smoking Tobacco: Former Cigarettes Q uit: 02/16/1979 Sex and Gender Information Value Date Recorded Sex Assigned at Female 11/02/2020 3:40 PM EDT Gender Identity Female 11/02/2020 3:40 PM EDT Sexual Orientation Straight 11/02/2020 3: 40 PM EDT documented as of this encounter Miscellaneous Notes * Telephone Encounter - Keila Arango, RN - 06/09/2012 2:59 PM EST This patient sent her result of bgs on [facility] Name= [id number] Based on lows at night we made the following changes in her basals. Mn= 0.4 3= 0.4 4:30= 0.4 10= 0.45 17= 0.5 18= 0.45 21= 0.4 Patient agrees. documented in this encounter Plan of Treatment Upcoming Encounters Date Type Department Care Team (Late st Contact Info) Description 06/05/2024 10:15 AM EST Office [place] [address] Namita Bansal MD [facility] [place] [address] documented as of this encounter Goals Goal Patient Goal Type Associated Problems Recent Progress Patient-Stated? Author Exercise 3x per week (30 min per time) Exercise No Keila Arango, CHRISTIANO documented as of this encounter Visit Diagnoses Not on filedocumented in this encounter Care Teams Evaporator Helper Relationship Specialty Start Date End Date Mitchell Yap MD [address] [place] [address] PCP - General 05/19/10 07/17/23 documented as of this encounter
--- OUTSIDE RECORDS SUMMARY | 2024-04-18 13:18 | XMS_ITS | Encounter Summary ---
Author Organization Formerly [facility] [place] [address] Care Team Providers Care Reticle Printer Name Role Phone Mitchell Yap MD Primary Care Provider [phone] Reason for Visit * Reason Onset Date Comments Other 10/02/2013 sensor order Encounter Details Date Type Department Care Team (Late st Contact Info) Description 10/02/2013 Telephone [place] [phone] Radha Miller MD [facility] [place] [address] Other (sensor order) Social History Tobacco Use Types Packs/Day Years Used Date Smoking Tobacco: Former Cigarettes Q uit: 02/16/1979 Smokeless Tobacco: Never Sex and Gender Information Value Date Recorded Sex Assigned at Female 11/02/2020 3:40 PM EDT Gender Identity Female 11/02/2020 3:40 PM EDT Sexual Orientation Straight 11/02/2020 3: 40 PM EDT documented as of this encounter Miscellaneous Notes * Telephone Encounter - Sarita Cuenca LPN - 10/03/2013 4:24 PM EDT Faxed supply order to: [facility] Diabetes Supply: Medtronic RTS CG sensor Dx Code: 250.01 Provider: Dr. Miller documented in this encounter Plan of Treatment Upcoming Encounters Date Type Department Care Team (Late st Contact Info) Description 06/05/2024 10:15 AM EST Office [place] [address] Namita Bansal MD [facility] [place] [address] documented as of this encounter Goals Goal Patient Goal Type Associated Problems Recent Progress Patient-Stated? Author Exercise 3x per week (30 min per time) Exercise No Keila Arango, CHRISTIANO documented as of this encounter Visit Diagnoses Not on filedocumented in this encounter Care Teams Reticle Printer Relationship Specialty Start Date End Date Mitchell Yap MD [address] [place] [address] PCP - General 05/19/10 07/17/23 documented as of this encounter
--- OUTSIDE RECORDS SUMMARY | 2024-04-18 13:18 | XMS_ITS | Encounter Summary ---
Author Organization [facility] [place] [address] Care Team Providers Care Metal Fabricator Helper Name Role Phone Mitchell Yap MD Primary Care Provider [phone] Encounter Details Date Type Department Care Team (Latest Contact Info) Description 05/29/2012 9:10 AM EST - 05/29/2012 11:59 PM [facility] Hospital [place] [phone] Torsten Peguero MD [facility] [place] [address] Diabetes mellitus type 1 Discharge Disposition: Home Social History Tobacco Use [...] Sig Dispensed Refills Start Date End Date Insulin Lispro Protam & Lispro (HUMALOG MIX 75-25) 100 unit/mL (75-25) Susp Inject subcutaneously 2 times daily. 11/27/2012 insulin lispro (HUMALOG) 100 unit/mL injection ~30-40 units continuous pump, SQ, continuous 10 mL 05/29/2012 04/23/2015 ONE TOUCH ULTRA TEST test strip USE TO CHECK GLUCOSE 10-15 TIMES PER DAY 500 each PRN 04/10/2011 10/24/2015 lisinopril (PRINIVIL;ZESTRIL) 10 mg tablet 07/23/2010 09/25/2014 aspirin 81 mg EC tablet 07/23/2010 06/09/2015 multivitamin (THERAGRAN) tablet 07/23/2010 5 fluticasone-salmeter ol (ADVAIR DISKUS) 100-50 mcg/dose diskus inhaler 07/23/2010 04/02/2015 documented as of this encounter Plan of Treatment Upcoming Encounters Date Type Department Care Team (Late st Contact Info) Description 06/05/2024 10:15 AM EST Office [place] [address] Namita Bansal MD [facility] [place] [address] documented as of this encounter Goals Goal Patient Goal Type Associated Problems Recent Progress Patient-Stated? Author Exercise 3x per week (30 min per time) Exercise No Keila Arango CDE documented as of this encounter Procedures Procedure Name Priority Date/Time Associated Diagnosis Comments U ALBUMIN/CRE RATIO Routine 05/29/2012 9 :31 AM EST Diabetes mellitus type 1 TSH Routine 05/29/2012 9:23 AM EST Diabetes mellitus type 1 LDL CHOLESTEROL, DIRECT Routine 05/29/2012 9:23 AM EST Diabetes mellitus type 1 HDL/CHOL PROFILE Routine 05/29/2012 9:23 AM EST Diabetes mellitus type 1 HEMOGLOBIN A1C Routine 05/29/2012 9:23 AM EST Diabetes mellitus type 1 BASIC METABOLIC PANEL Routine 05/29/2012 9:23 AM EST Diabetes mellitus type 1 documented in this encounter Results * Microalbumin, urine, random (05/29/2012 9:31 AM EST) Creatinine, Urine 16 mg/dL [facility] Albumin, Urine <3.0 mg/L CERNE R MILLEN[facility] Albumin / Creatinin Ratio, Urine <19 mcg/mg Cr [facility] Comment: Reference Range* Random collection (mcg/mg creatinine) Normal ?<30 Microalbuminuria ?? 30 - 300 Clinical Albuminuria ?? >300 *Canadian Diabetes Association. Diabetic Nephropathy. Diabetes Care 1997;(Suppl 1):S24-S27 Exercise within 24 hour, infection, fever, CHF, marked hyperglycemia, and marked hypertension may elevate urinary albumin excretion over baseline values. Urine specimen (specimen) 05/29/2012 9:31 AM EST 05/29/2012 9:49 AM EST Narrative Resulting Agency Comment Spec In Lab Torsten Peguero MD URINE ORDERABLES [facility] * LDL Cholesterol, Direct (05/29/2012 9:23 AM EST) LDL Cholesterol, Direct 98 <=99 mg/dL [facility] Comment: The National Cholesterol Education Program (NCEP) has set the following guidelines for LDL Cholesterol: Reference range: ?? Optimal: ?<100 mg/dL ?? Near Optimal/Above Optimal: ?? 100-129 mg/dL ?? Borderline high: ?130-159 mg/dL ?? High: ? 160-189 mg/dL ?? Very high: ?>ex=320 mg/dL SUJATA 2001: 285(19):0916-0846 Blood specimen (specimen) 05/29/2012 9:23 AM EST 05/29/2012 9:31 AM EST Narrative Resulting Agency Comment Spec In Lab Torsten Peguero MD CHEMISTRY ORDERABLES Performing Organization Address [facility] de Phone Number JENNIFER REGAN * HDL/Cholesterol Profile (05/29/2012 9:23 AM EST) Cholesterol, Total 189 <=199 mg/dL [facility] Comment: Recommendations of the NCEP Adult Treatment Panel for the following risk cutoff thresholds for the [place] population: Desirable: <200 mg/dL Borderline High: 200-239 mg/dL High: > or = 240 mg/dL HDL Cholesterol 92 >=40 mg/dL [facility] Comment: Reference range: ??Low HDL: ?? < 40 mg/dL ??Normal: ?40-60 mg/dL ??Desirable: > 60 mg/dL SUJATA 2001; 285(19):4700-7397 Cholesterol/HDL Ratio 2.1 ratio [facility] Comment: A Cholesterol to HDL ratio below 4:1 is desirable. ??Studies suggest that increased CAD risk occurs at ratios above 5 for females and above 6 for men. ? Canadian Heart Association ??(http://www.americanheart.org) ? Ani Int Med, 1994; 121:641 ? AM J Med, 1998; 105(1A):48S Blood specimen (specimen) 05/29/2012 9:23 AM EST 05/29/2012 9:31 AM EST Narrative Resulting Agency Comment Spec In Lab Torsten Peguero MD CHEMISTRY ORDERABLES Performing Organization Address [facility] de Phone Number JENNIFER REGAN * TSH (05/29/2012 9:23 AM EST) Thyroid Stimulating Hormone 2.17 0.27 - 4.20 mcIU/mL JENNIFER DICKERSONENNIUM Blood specimen (specimen) 05/29/2012 9:23 AM EST 05/29/2012 9:31 AM EST Narrative Resulting Agency Comment Spec In Lab Torsten Peguero MD CHEMISTRY ORDERABLES Performing Organization Address [facility] Co de Phone Number JENNIFER GEORGEIUM * (ABNORMAL) Hemoglobin A1c (05/29/2012 9:23 AM EST) Hemoglobin A1c 7.0(H) 4.3 - 6.1 % [facility] Estimated Average Glucose 154 mg/dL [facility] Comment: eAG equivalents for HbA1c percentages: HbA1c(%) [...] into estimated average glucose values. ??Diabetes Care 2008:31(8):6443-0063. Blood specimen (specimen) 05/29/2012 9:23 AM EST 05/29/2012 9:31 AM EST Narrative Resulting Agency Comment Spec In Lab Torsten Peguero MD CHEMISTRY ORDERABLES [facility] * (ABNORMAL) Basic Metabolic Panel (non-fasting) (05/29/2012 9:23 AM EST) Glucose 323(H) 60 - 199 mg/dL [facility] Comment:Diabetes: >=200 mg/d L plus symptoms Blood Urea Nitrogen 21(H) 8 - 18 mg/dL [facility] MILLENNIUM Creatinine 0.96 0.70 - 1.20 mg/dL [facility] MILLENNI[facility] Comment: Please note that the pediatric reference intervals supplied above were not validated at [facility]. Results from pediatric patients should be interpreted in conjunction to the patient's age, height and muscle mass. Sodium 135 135 - 145 mmol/L [facility] MILLENNIUM Potassium 4.2 3.5 - 5.0 mmol/L [facility]ILL[facility] Comment: Please note: ??Patients with WBC >100,000 may have falsely elevated Potassium levels. ??For accurate Potassium quantification in these patients send serum separator tube (gold top) for subsequent determinations. ??Contact the Clinical Chemistry Laboratory if there are any questions. Chloride 101 98 - 107 mmol/L [facility] MILLENNIUM Carbon Dioxide 25 22 - 31 mmol/L [facility]ERN[facility] MILLENNIUM Anion Gap 9 5 - 15 mmol/L [facility] MILLENNIUM Calcium 9.3 8.5 - 10.5 mg/dL CERNER MILLENNIUM Est Glomerular Filtration Rate 60 >=60 C[facility]ER MILLENNIUM Comment: The National Kidney Disease Education Program (NKDEP) has recommended all laboratories report estimated GFR (eGFR) along with plasma creatinine measurements to assist you with recognition of early kidney disease. Caveats: ??Plasma creatinine should be at steady-state (unchanged within the past week). For patients multiply eGFR by 1.2. The MDRD equation was developed using patients between the ages of 18 and 70 years. ?? The MDRD equation has not been validated for patients < 18 years of age and should not be used to assess renal function in the pediatric population. ??The MDRD eGFR equation will also overestimate the true GFR of patients above the age of 70. ??This overestimation is variable but increases with age. At present, NKDEP does NOT recommend using the MDRD equation for drug dosing purposes and pharmacists should continue to use their current dosing methods. In addition, numerical eGFR values greater than 60 ml/min/1.73 square meters should be treated as > 60, and not an exact number due to greater inaccuracies at these higher values. Per NKDEP, they classify normal renal function as any GFR >60ml/min/1.73 square meters; chronic kidney disease when GFR <60, and renal failure when GFR <15. ??This calculation may not be valid for patients with atypical muscle mass (very lean or obese), acute renal failure, and in patients with diabetic kidney disease. References: http://nkdep.nih.gov/resources/NKDEP_Suggestn4Labs_0606_508.pdf http://www.kidney.org/professionals/kls/pdf/faq_gfr.pdf Ciro K, Elisha NA, Max AK, Shelton TS, Faisal AD, Servando ROLAND. Relative performance of the MDRD and CKD-EPI equations for estimating glomerular filtration rate among patients with varied clinical presentations. Clin J Am Soc Nephrol;6:1963-72. Blood specimen (specimen) 05/29/2012 9:23 AM EST 05/29/2012 9:31 AM EST Narrative Resulting Agency Comment Spec In Lab Torsten Peguero MD CHEMISTRY ORDERABLES Performing Organization Address City/State/[facility] Co nd Phone Number [facility] documented in this encounter Visit Diagnoses Diagnosis Diabetes mellitus type 1 Type I (juvenile type) diabetes mellitus without mention of complication, not stated as uncontrolled documented in this encounter Care Teams Metal Fabricator Helper Relationship Specialty Start Date End Date Mitchell aYp MD [address] [place] [address] PCP - General 05/19/10 07/17/23 documented as of this encounter
--- OUTSIDE RECORDS SUMMARY | 2024-04-18 13:18 | XMS_ITS | Encounter Summary ---
Author Organization Formerly [facility] Address [facility] [place] [address] Care Team Providers Care Kiln Worker Name Role Phone Mitchell Yap MD Primary Care Provider [phone] Encounter Details Date Type Department Care Team (Latest Contact Info) Description 07/23/2010 7:12 AM EST - 07/23/2010 11:59 PM [facility] Hospital Encounter XRay at [address] [place] [phone] CLINIC, Mitchell Hightower MD [address] [address] Discharge Disposition: Home Social History Tobacco Use [...] Sig Dispensed Refills Start Date End Date lisinopril (PRINIVIL;ZESTRIL) 10 mg tablet 07/23/2010 09/25/2014 aspirin 81 mg EC tablet 07/23/201005/27 multivitamin (THERAGRAN) tablet 07/23/2010 5 fluticasone-salmeterol (ADVAIR DISKUS) 100-50 mcg/dose diskus inhaler 07/23/2010 10/0 12/2014 insulin lispro (HUMALOG) 100 unit/mL injection ~30-40 units continuous pump, SQ, continuous 07/23/2010 02/16/2011 Cholecalciferol, Vitamin D3, (VITAMIN D-3) 400 unit Cap 07/23/2010 08/12/2011 documented as of this encounter Plan of Treatment Upcoming Encounters Date Type Department Care Team (Late st Contact Info) Description 06/05/2024 10:15 AM EST Office [place] [address] Namita Bansal MD [facility] [place] [address] documented as of this encounter Visit Diagnoses Not on filedocumented in this encounter Care Teams Kiln Worker Relationship Specialty Start Date End Date Mitchell Yap MD [address] [place] [address] PCP - General 05/19/10 07/17/23 documented as of this encounter
--- OUTSIDE RECORDS SUMMARY | 2024-04-18 13:18 | XMS_ITS | Encounter Summary ---
[place] [address] Care Team Providers Care Executive Sous Chef Name Role Phone Mitchell Yap MD Primary Care Provider [phone] Encounter Details Date Type Department Care Team (Late st Contact Info) Description 05/29/2012 10:00 AM EST Office [place] [address] Keila Arango, [facility] [place] [address] Diabetes type 1, controlled (Primary Dx) Social History Tobacco Use Types Packs/Day Years Used Date Smoking Tobacco: Former Cigarettes Q uit: 02/16/1979 Sex and Gender Information Value Date Recorded Sex Assigned at Female 11/02/2020 3:40 PM EDT Gender Identity Female 11/02/2020 3:40 PM EDT Sexual Orientation Straight 11/02/2020 3: 40 PM EDT documented as of this encounter Patient Instructions * Patient Instructions* Keila Arango, RN - 05/30/2012 8:04 AM EST This patient will use her arms and hips for her infusion sets and upload her data to [employer] in one week for this educator to review the data. documented in this encounter Progress Notes * Keila Arango RN - 05/30/2012 7:49 AM EST Diabetes Self-Management Education Program Follow- up Visit Referring Provider: MITCHELL YAP MD Type of diabetes: Diabetes mellitus Type I, under good control. Medtronic 522 Mn= 0.45 3= 0.45 4:30= 0.45 10= 0.45 17= 0.5 18= 0.45 21:00= 0.50 Total basal = 11 units Mn= 14:1 12:30= 131 18:30= 13:1 CF= 55 Target= 100-115 Reassessment Ratings: 1=needs instruction 2=needs review 3=comprehends rodriguez points 4=demonstrates competency N/A= not assessed Topic Reassessment Rating Comment/Re-education Knowledge of diabetes disease process 4 Nutrition Management 3 Down 3 lbs since July Breakfast: whole grain toast with almond butter. Midmorning, a piece of fruit. lLunch, usually a salad with green beets, carrots, celery and then either cottage cheese or chickpeas. Suppertime, last night she had pork wraps, baked potato, and green beans with rossi; and evening snack, usually a half of a [place] bar or some almonds. Patient counts carbs by reading food labels. Discussed. Understanding of Physical Activity 3 Active at work. Very stressful. Encouraged exercise to reduce stress Medication Use 3 Abdomen and legs have much scar tissue. Patient to use arms and hips to get betterabsorption of her insulin. Monitoring and using results 3 smbg 4+x/day Data from pump uploaded to [employer]. Reviewed and suggestions made. Patient to switch sites and to upload her pump in a week. This Educator will look at the data to see if insulin changes are needed. Preventing Acute Complications 3 + Lows, uses her sensor to assist with treating them. Blunted sx so doesn't feel them. Counseled. Preventing Chronic Complications, Risk Reduction 3 Psychosocial Adjustment 3 Behavior Change Strategies 3 Behavior goals reviewed. Last behavior goal: Patient to increase her carb ratio at dinner so that she won't have to correct at bedtime and risk a low blood sugar. Goal Achievement: 100% New Goal: This patient will upload her data in one week and send it this educator for review. She will use her arms for her infusion sets. Follow-up/DSMS Plan: Follow up with PCP soon. Time Spent Diabetes Education: 30 minutes documented in this encounter Plan of Treatment Upcoming Encounters Date Type Department Care Team (Late st Contact Info) Description 06/05/2024 10:15 AM EST Office [place] [address] Namita Bansal MD [facility] [place] [address] documented as of this encounter Goals Goal Patient Goal Type Associated Problems Recent Progress Patient-Stated? Author Exercise 3x per week (30 min per time) Exercise No Keila Arango CDE documented as of this encounter Visit Diagnoses Diagnosis Diabetes type 1, controlled- Primary Type I (juvenile type) diabetes mellitus without mention of complication, not stated as uncontrolled documented in this encounter Care Teams Executive Sous Chef Relationship Specialty Start Date End Date Mitchell Yap MD [address] [place] [address] PCP - General 05/19/10 07/17/23 documented as of this encounter
--- OUTSIDE RECORDS SUMMARY | 2024-04-18 13:18 | XMS_ITS | Encounter Summary ---
[place] [address] Care Team Providers Care Export Clerk Name Role Phone Mitchell Yap MD Primary Care Provider [phone] Reason for Visit * Reason Onset Date Comments Other 05/05/2012 Encounter Details Date Type Department Care Team (Late st Contact Info) Description 05/05/2012 [place] [phone] Keila Arango, [facility] [place] [address] Other Social History Tobacco Use Types Packs/Day Years Used Date Smoking Tobacco: Former Cigarettes Q uit: 02/16/1979 Sex and Gender Information Value Date Recorded Sex Assigned at Female 11/02/2020 3:40 PM EDT Gender Identity Female 11/02/2020 3:40 PM EDT Sexual Orientation Straight 11/02/2020 3: 40 PM EDT documented as of this encounter Miscellaneous Notes * Telephone Encounter - Abby Campbell APRN - 05/06/2012 6:24 AM EST Please call and ask her to consider setting low alarm of sensor at 85 * Telephone Encounter - Keila Arango, RN - 05/05/2012 4:45 PM EST This patient states she is doing better. You can call her on Tuesday at [phone]. She has had a 49 but that is the only real low she has had since the 29. She has her sensor on and it is set at 75. documented in this encounter Plan of Treatment Upcoming Encounters Date Type Department Care Team (Late st Contact Info) Description 06/05/2024 10:15 AM EST [place] [address] Namita Bansal MD [facility] [place] [address] documented as of this encounter Goals Goal Patient Goal Type Associated Problems Recent Progress Patient-Stated? Author Exercise 3x per week (30 min per time) Exercise No Keila Arango, CHRISTIANO documented as of this encounter Visit Diagnoses Not on filedocumented in this encounter Care Teams Export Clerk Relationship Specialty Start Date End Date Mitchell Yap MD [address] [place] [address] PCP - General 05/19/10 07/17/23 documented as of this encounter
--- OUTSIDE RECORDS SUMMARY | 2024-04-18 13:18 | XMS_ITS | Encounter Summary ---
Author [place] [address] Care Team Providers Care Truck Driver Teamster Name Role Phone Mitchell Yap MD Primary Care Provider [phone] Encounter Details Date Type Department Care Team (Late st Contact Info) Description 11/02/2013 Telephone [place] [phone] Siomara Rodriguez RN Social History Tobacco Use Types Packs/Day Years Used Date Smoking Tobacco: Former Cigarettes Q uit: 02/16/1979 Smokeless Tobacco: Never Sex and Gender Information Value Date Recorded Sex Assigned at Female 11/02/2020 3:40 PM EDT Gender Identity Female 11/02/2020 3:40 PM EDT Sexual Orientation Straight 11/02/2020 3: 40 PM EDT documented as of this encounter Miscellaneous Notes * Telephone Encounter - Siomara Rodriguez RN - 11/02/2013 4:19 PM EDT Opened in error documented in this encounter Plan of Treatment Upcoming Encounters Date Type Department Care Team (Late st Contact Info) Description 06/05/2024 10:15 AM EST Office Visit [place] [address] Namita Bansal MD [facility] [place] [address] documented as of this encounter Goals Goal Patient Goal Type Associated Problems Recent Progress Patient-Stated? Author Exercise 3x per week (30 min per time) Exercise No Keila Arango, VELMAE documented as of this encounter Visit Diagnoses Not on filedocumented in this encounter Care Teams Truck Driver Teamster Relationship Specialty Start Date End Date Mitchell Yap MD [address] [place] [address] PCP - General 05/19/10 07/17/23 documented as of this encounter
--- OUTSIDE RECORDS SUMMARY | 2024-04-18 13:18 | XMS_ITS | Encounter Summary ---
Author Organization [facility] [place] [address] Care Team Providers Care Picked Edge Sewing Machine Operator Name Role Phone Mitchell Yap MD Primary Care Provider [phone] Reason for Visit * Reason Comments Diabetes Encounter Details Date Type Department Care Team (Late st Contact Info) Description 09/26/2013 9:30 AM EDT Office [place] [phone] Radha Miller MD [facility] [place] [address] Diabetes mellitus type 1, uncomplicated (Primary Dx) Discharge Disposition: Home Social History [...] Sign Reading Time Taken Comments Blood Pressure 134/77 09/26/2013 10:07 AM EDT Pulse 90 09/26/2013 10:07 AM EDT Temperature - - Respiratory Rate - - Oxygen Saturation - - Inhaled Oxygen Concentration - - Weight 69.3 kg (152 lb 12.8 oz) 014 10:07 AM EDT Height - - Body Mass Index 30.86 08/12/2011 1:34 PM EST documented in this encounter Progress Notes * Radha Miller MD - 09/23/2013 1:33 PM EDT PRIMARY CARE PROVIDER: Mitchell Yap MD CC: Here for f/u of type 1 DM Dx: 1957 Last Hga1c 7.0, 10/08; 7.9, 08/10;7.2, 11/06 DIABETES REGIMEN: Basal rates; 12 a.m. 0.6, 10 a.m. 0.45, 5pm 0.5, 6 pm 0.475,9 pm 0.425, total basal 12.35. insulin to carb MN 14; 12:30, 13; 18:30 14. Sensitivity factor 55. 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 She is carefully managing her diabetes. She wears a glucose sensor and generally blood sugars are 120 to 160, but she has low blood sugars at night about three or four times a week and during the day may be once a week. Sometimes she can explain them and sometimes not. She does note that occasionally she will stack her insulin. If her blood sugar is high, she will take extra and not take into account the insulin onboard. EXERCISE: She is active on her job at work. DIET: She skipped breakfast. For lunch, mid morning snack, she had a fruit yesterday. For lunch, salad bar with chickpeas, beans, carrots, cottage cheese, and half a cup of milk. For supper, she had chicken rice and spinach; and evening snack, almonds. She is up-to-date with her eye exam, has neuropathy from disc disease, but no diabetic neuropathy. She is due for creatinine and microalbumin and lipids, but her budget does not afford it right now. We will do it at her next visit. PAST MEDICAL HISTORY: Type 1 diabetes, asthma, hypertension, lumbar disk disease. PAST SURGICAL HISTORY: x2, right carpal tunnel release, pilonidal cyst extraction. Current Outpatient Prescriptions Medication Sig Dispense Refill ??? gabapentin (NEURONTIN) 300 mg capsule Take 300 mg by mouth nightly. ??? Diabetic Supplies[place]. [facility] [place] [facility] diabetes for pump supplies 100 each12 ??? insulin lispro (HUMALOG) 100 unit/mL injection ~30-40 units continuous pump, SQ, continuous 10 mL ??? ONE TOUCH ULTRA TEST test strip USE TO CHECK GLUCOSE 10-15 TIMES PER DAY 500 each PRN ??? lisinopril (PRINIVIL;ZESTRIL) 10 mg tablet ??? aspirin 81 mg EC tablet ??? multivitamin (THERAGRAN) tablet ??? fluticasone-salmeterol (ADVAIR DISKUS) 100-50 mcg/dose diskus inhaler Allergies Allergen Reactions ??? Penicillins Hives ??? Prochlorperazine SOCIAL HISTORY: for 35 years. Two daughters, one grandson. 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 She quit smoking in 1978. Has one glass of wine in the evenings. COMPLETE REVIEW OF SYSTEMS: She has some headaches and some right hand arthralgias. The remainder of the review of systems is negative. PHYSICAL EXAMINATION: Blood pressure 134/77, pulse 90, weight 152. In general, she looks well. Her skin is smooth, warm, and dry. No ulcerations. Cardiovascular: 2+ pulses. No edema. Neurologic Exam: Good light touch sensation to the monofilament. Psych: Mood and affect are appropriate. LABORATORY TEST: Hemoglobin A1c 7%. IMPRESSION: Diabetes, under good control, but Ebonie is having some low blood sugars at night, we will put in a different basal rate at midnight 0.575 and then at 6 a.m. 0.6. We will also change her targets from 100 to 180 down to 100 to 140 since she will be less apt to overtreat and stack insulin with this as a target. PLAN: 1. Address the insulin as noted above. 2. Follow up in six months with Abby Campbell with hemoglobin A1c, lipids, microalbumin, creatinine, and TSH in the quick draw lab. documented in this encounter Plan of Treatment Upcoming Encounters Date Type Department Care Team (Late st Contact Info) Description 06/05/2024 10:15 AM EST Office [place] [address] Namita Bansal MD [facility] [place] [address] documented as of this encounter Goals Goal Patient Goal Type Associated Problems Recent Progress Patient-Stated? Author Exercise 3x per week (30 min per time) Exercise Keila Espinoza CDE documented as of this encounter Results * Microalbumin, urine, random (09/25/2014 9:12 AM EDT) Creatinine, Urine 75 mg/dL AR ALVAREZ MILLLOYDAIUM Albumin, Urine <3.0 mg/L RUFUS Aguila MILLENNIUM Albumin / Creatinin Ratio, Urine <4 mcg/mg Cr JENNIFER DICKERSONENNIUM Comment: Reference Range* Random collection (mcg/mg creatinine) Normal ?<30 Microalbuminuria ?? 30 - 300 Clinical Albuminuria ?? >300 *[place] Diabetes Association. Diabetic Nephropathy. Diabetes Care 1997;(Suppl 1):S24-S27 Exercise within 24 hour, infection, fever, CHF, marked hyperglycemia, and marked hypertension may elevate urinary albumin excretion over baseline values. Urine specimen (specimen) 09/25/2014 9:12 AM EDT 09/25/2014 9:27 AM EDT Narrative Resulting Agency Comment Spec In Lab Radha Miller MD URINE ORDERABLES Performing Organization Address City/[facility]/ZIP Co de Phone Number [facility] * (ABNORMAL) LDL Cholesterol, Direct (09/25/2014 8:56 AM EDT) LDL Cholesterol, Direct 110(H) <=99 mg/dL [facility] Comment: The National Cholesterol Education Program (NCEP) has set the following guidelines for LDL Cholesterol: Reference range: ?? Optimal: ?<100 mg/dL ?? Near Optimal/Above Optimal: ?? 100-129 mg/dL ?? Borderline high: ?130-159 mg/dL ?? High: ? 160-189 mg/dL ?? Very high: ?>my=970 mg/dL SUJATA 2001: 285(19):1493-7996 Blood specimen (specimen) 09/25/2014 8:56 AM EDT 09/25/2014 9:21 AM EDT Narrative Resulting Agency Comment Spec In Lab Radha Miller MD CHEMISTRY ORDERAB LES Performing Organization Address City/[facility]/ZIP Co de Phone Number [facility] * HDL/Cholesterol Profile (09/25/2014 8:56 AM EDT) Cholesterol, Total 197 <=199 mg/dL [facility] Comment: Recommendations of the NCEP Adult Treatment Panel for the following risk cutoff thresholds for the [place] population: Desirable: <200 mg/dL Borderline High: 200-239 mg/dL High: > or = 240 mg/dL HDL Cholesterol 85 >=40 mg/dL [facility] Comment: Reference range: ??Low HDL: ?? < 40 mg/dL ??Normal: ?40-60 mg/dL ??Desirable: > 60 mg/dL SUJATA 2001; 285(19):3570-7213 Cholesterol/HDL Ratio 2.3 ratio [facility] MILLENNIUM Comment: A Cholesterol to HDL ratio below 4:1 is desirable. ??Studies suggest that increased CAD risk occurs at ratios above 5 for females and above 6 for men. ? [place] Heart Association ??(http://www.americanheart.org) ? Ani Int Med, 1994; 121:641 ? AM J Med, 1998; 105(1A):48S Blood specimen (specimen) 09/25/2014 8:56 AM EDT 09/25/2014 9:21 AM EDT Narrative Resulting Agency Comment Spec In Lab Radha Miller MD CHEMISTRY ORDERAB LES Performing Organization Address [facility] Co de Phone Number [facility] * TSH (09/25/2014 8:56 AM EDT) Thyroid Stimulating Hormone 3.34 0.27 - 4.20 mcIU/mL [facility] Blood specimen (specimen) 09/25/2014 8:56 AM EDT 09/25/2014 9:21 AM EDT Narrative Resulting Agency Comment Spec In Lab Radha Miller MD CHEMISTRY ORDERAB LES Performing Organization Address City/[facility] Co de Phone Number [facility] * Creatinine (09/25/2014 8:56 AM EDT) Creatinine 0.70 0.70 - 1.20 mg/dL [facility] Comment: Please note that the pediatric reference intervals supplied above were not validated at [facility]. Results from pediatric patients should be interpreted in conjunction to the patient's age, height and muscle mass. Est Glomerular Filtration Rate >60 >=60 [facility] Comment: This estimated GFR (eGFR) value [...] the following links into your internet browser. http://Zynga.ModCloth/DHnkdep http://[employer] ([place])/DHMCnkf Blood specimen (specimen) 09/25/2014 8:56 AM EDT 09/25/2014 9:21 AM EDT Narrative Resulting Agency Comment Spec In Lab Radha Miller MD CHEMISTRY ORDERAB LES [facility] * (ABNORMAL) Hemoglobin A1c (09/25/2014 8:56 AM EDT) Hemoglobin A1c 7.6(H) 4.3 - 5.6 % [facility] Comment: Reference Range: 4.3 - 5.6% [...] 1, S67-74 Estimated Average Glucose 171 mg/dL [facility] Comment: eAG equivalents for HbA1c percentages: HbA1c(%) ?eAG(mg/dL) 6.0 ?126 6.5 ?140 7.0 ?154 7.5 ?169 8.0 ?183 8.5 ?197 9.0 ?212 9.5 ?226 10.0 ? 240 Limitations: The eAG calculation has not been validated on women, individuals below 18 years old and above 70 years old, and individuals with hemoglobinopathies. Additional resources are available on the ADA website: http://Zynga.ModCloth/DHadacalc Sam COPELAND, Leatha J, Blanca R, et al. ??Translating the A1C assay into estimated average glucose values. ??Diabetes Care 2008:31(8):3272-6416. Blood specimen (specimen) 09/25/2014 8:56 AM EDT 09/25/2014 9:21 AM EDT Narrative Resulting Agency Comment Spec In Lab Radha Miller MD CHEMISTRY ORDERAB LES Performing Organization Address City/State/[facility] Co de Phone Number [facility] documented in this encounter Visit Diagnoses Diagnosis Diabetes mellitus type 1, uncomplicated- Primary Type I (juvenile type) diabetes mellitus without mention of complication, not stated as uncontrolled documented in this encounter Care Teams Picked Edge Sewing Machine Operator Relationship Specialty Start Date End Date Mitchell Yap MD [address] [place] [id number] PCP - General 05/19/10 07/17/23 documented as of this encounter
--- OUTSIDE RECORDS SUMMARY | 2024-04-18 13:18 | XMS_ITS | Encounter Summary ---
Author Organization [facility] [place] [address] Care Team Providers Care Brownfield Redevelopment Specialist Name Role Phone Mitchell Yap MD Primary Care Provider [phone] Encounter Details Date Type Department Care Team (Latest Contact Info) Description 09/26/2013 9:26 AM EDT - 09/26/2013 11:59 PM EDT Hospital [place] [phone] Torsten Peguero MD [facility] [place] [address] Type I (juvenile type) diabetes mellitus without mention of complication, not stated as uncontrolled Discharge Disposition: Home Social History Tobacco Use [...] Sig Dispensed Refills Start Date End Date gabapentin (NEURONTIN) 300 mg capsule Take 300 mg by mouth nightly. 03/27/2014 Diabetic Supplies, Miscellan. Misc [facility]ax form to [facility] for pump supplies 100 each 12 09/05/2013 11/02/2013 insulin lispro (HUMALOG) 100 unit/mL injection ~30-40 units continuous pump, SQ, continuous 10 mL 05/29/2012 04/23/2015 ONE TOUCH ULTRA TEST test strip USE TO CHECK GLUCOSE 10-15 TIMES PER DAY 500 each PRN 04/10/2011 10/24/2015 lisinopril (PRINIVIL;ZESTRIL) 10 mg tablet 07/23/2010 09/25/2014 aspirin 81 mg EC tablet 07/23/2010 06/09/2015 multivitamin (THERAGRAN) tablet 07/23/2010 5 fluticasone-salmetero l (ADVAIR DISKUS) 100-50 mcg/dose diskus inhaler 07/23/2010 04/02/2015 documented as of this encounter Plan of Treatment Upcoming Encounters Date Type Department Care Team (Late st Contact Info) Description 06/05/2024 10:15 AM EST Office [place] [address] Namita Bansal MD [facility] [place] [address] documented as of this encounter Goals Goal Patient Goal Type Associated Problems Recent Progress Patient-Stated? Author Exercise 3x per week (30 min per time) Exercise No Keila Arango, CHRISTIANO documented as of this encounter Procedures Procedure Name Priority Date/Time Associated Diagnosis Comments HEMOGLOBIN A1C Routine 09/26/2013 9:29 AM EDT Type I (juvenile type) diabetes mellitus without mention of complication, not stated as uncontrolled documented in this encounter Results * (ABNORMAL) Hemoglobin A1c (09/26/2013 9:29 AM EDT) Hemoglobin A1c 7.0(H) <=5.6 % RUFUS REGAN Comment: As of 2013 the methodology for Hemoglobin A1c testing has changed. This change is accompanied by a new interpretive statement and flags. Please review the new interpretive statement and contact Dr. Carrillo or Dr. Saenz with questions. Reference Range: 4.3 ? 5.6% 5.7 ? 6.4% - Increased Risk of Developing Diabetes Mellitus 6.5% - Consistent with diagnosis of Diabetes Mellitus In the absence of hyperglycemia (i.e. plasma glucose > 200 mg/dL) or classic symptoms of hyperglycemia a repeat measurement of HbA1c should be performed on a separate sample to confirm the diagnosis. Diagnosis and Classification of Diabetes Mellitus, Diabetes Care 2013; 36: Suppl. 1, C17-54 Estimated Average Glucose 154 mg/dL [facility] Comment: eAG equivalents for HbA1c percentages: HbA1c(%) ?eAG(mg/dL) 6.0 ?126 6.5 ?140 7.0 ?154 7.5 ?169 8.0 ?183 8.5 ?197 9.0 ?212 9.5 ?226 10.0 ? 240 Limitations: The eAG calculation has not been validated on women, individuals below 18 years old and above 70 years old, and individuals with hemoglobinopathies. Additional resources are available on the ADA website: ??http://professional.diabetes.org/glucosecalculator.aspx Sam COPELAND, Leatha Rivera, Blanca R, et al. ??Translating the A1C assay into estimated average glucose values. ??Diabetes Care 2008:31(8):8164-5238. Blood specimen (specimen) 09/26/2013 9:29 AM EDT 09/26/2013 9:35 AM EDT Narrative Resulting Agency Comment Spec In Lab Torsten Peguero MD CHEMISTRY ORDERABLES [facility] documented in this encounter Visit Diagnoses Diagnosis Type I (juvenile type) diabetes mellitus without mention of complication, not stated as uncontrolled documented in this encounter Care Teams Brownfield Redevelopment Specialist Relationship Specialty Start Date End Date Mitchell Yap MD [address] [place] [address] PCP - General 05/19/10 07/17/23 documented as of this encounter
--- OUTSIDE RECORDS SUMMARY | 2024-04-18 13:18 | XMS_ITS | Encounter Summary ---
Author Organization [facility] [place] [address] Care Team Providers Care High Risk Case Manager Name Role Phone Mitchell Yap MD Primary Care Provider [phone] Reason for Visit * Reason Onset Date Comments Medication Refill 09/05/2013 Encounter Details Date Type Department Care Team (Late st Contact Info) Description 09/05/2013 [place] [phone] Radha Miller MD [facility] [place] [address] Social History Tobacco Use Types Packs/Day Years [...] 10:15 AM EST Office [place] [phone] Namita Bansal MD [facility] [place] [address] documented as of this encounter Goals Goal Patient Goal Type Associated Problems Recent Progress Patient-Stated? Author Exercise 3x per week (30 min per time) Exercise No Keila Arango, CHRISTIANO documented as of this encounter Visit Diagnoses Not on filedocumented in this encounter Care Teams High Risk Case Manager Relationship Specialty Start Date End Date Mitchell Yap MD [address] [place] [id number] PCP - General 05/19/10 07/17/23 documented as of this encounter
--- OUTSIDE RECORDS SUMMARY | 2024-04-18 13:18 | XMS_ITS | Encounter Summary ---
Author Organization [facility] [place] [address] Care Team Providers Care Car Inspector Name Role Phone Mitchell Yap MD Primary Care Provider [phone] Reason for Visit * Reason Comments Diabetes Encounter Details Date Type Department Care Team (Late st Contact Info) Description 05/29/2012 8:30 AM EST Office [place] [phone] Radha Miller MD [facility] [place] [address] DM w/o complication type I (Primary Dx) Discharge Disposition: Home Social History [...] Sign Reading Time Taken Comments Blood Pressure 128/65 05/29/2012 9:31 AM EST Pulse - - Temperature - - Respiratory Rate - - Oxygen Saturation - - Inhaled Oxygen Concentration - - Weight 71.2 kg (157 lb) 05/29/2012 9:31 AM EST Height - - Body Mass Index 31.71 08/12/2011 1:34 PM EST documented in this encounter Progress Notes * Radha Miller MD - 07/28/2012 11:53 AM EST The patient has been for 35 years not 35 weeks! * Radha Miller MD - 05/29/2012 9:40 AM EST CC: Here for f/u of type 1 DM Dx: 1957 Last Hga1c Regimen: pump- basal MN 0.45, 5 pm 0.5, 6 pm 0.45, 10 pm 5; carb MN 14, 12:30 pm 13; Correction 55 Complications: dentist-05/08 ; eyes-06/06- appt 06/12/12, no DR ; Cr- ; ma- ; neuropathy-no ; CAD-no ; lipids- TChol , HDL- , LDL- DM health maintenance: beta travis-no ; ASA81 ; STEFANY/ARB-lisinopril 10 ; statin- no ; flu shot-2011 ; pneomovax- ; smoking-no ; TSH- PRIMARY CARE PROVIDER: Mitchell Yap M.D. CC: Here for f/u of type 2 DM Dx: 1957 HISTORY OF PRESENT ILLNESS: Ms. Sol has been in for almost a year and half. She has been seeing Dr. Yap regularly and she was doing well until three or four months ago. She noticed lots of swings in her blood sugars that range from 80 to 300. Most of the highs come after a low and sometimes a low blood sugars are explainable by being active at work, but not always. A few weeks ago where she actually had a severe low blood sugar and her nurses had to call the ambulance for her. She does have glucagon and her staff now knows how to use it. Blood sugars in the morning are usually 80 to 250, noon 80 to 200, and supper 80 to 150. EXERCISE: She is active on her job at work, but has not been doing her treadmill regularly. DIET: For breakfast, she will have whole grain toast with almond butter. Midmorning, a piece of fruit. For lunch, usually a salad with green beets, carrots, celery and then either cottage cheese or chickpeas. Suppertime, last night she had pork wraps, baked potato, and green beans with rossi; and evening snack, usually a half of a Madison bar or some almonds. Last Hga1c 7.0%, 127.1%, 07/08 Regimen:Pump- basal MN 0.45, 5 pm 0.5, 6 pm 0.45, 10 pm 0.5; Carb MN 14, 12:30 pm 13; correction 55 Complications: dentist-utd ; eyes- ; Cr- 0.96, 06/07; ma-19, 06/07 ; neuropathy- no ; CAD-no ; lipids- [id number] , HDL- 92, LDL- 98, 06/07 DM health maintenance: beta travis-no ; ASA81; STEFANY/ARB- lisinopril 10; statin- ; flu shot- ; pneomovax- ; smoking- ; TSH-2.17, 06/07 PAST MEDICAL HISTORY: Type 1 diabetes, asthma, and hypertension. Current Outpatient Prescriptions on File Prior to Visit Medication Sig Dispense Refill ??? ONE TOUCH ULTRA TEST test strip USE TO CHECK GLUCOSE 10-15 TIMES PER DAY 500 each PRN ??? lisinopril (PRINIVIL;ZESTRIL) 10 mg tablet ??? aspirin 81 mg EC tablet ??? multivitamin (THERAGRAN) tablet ??? fluticasone-salmeterol (ADVAIR DISKUS) 100-50 mcg/dose diskus inhaler Allergies Allergen Reactions ??? Penicillins Hives ??? Prochlorperazine SOCIAL HISTORY: She is for 35 weeks, has two daughters and one grandson who is five months old. 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 Alcohol rare. FAMILY HISTORY: Mother at 79 of CHF. Father is 92 with some dementia and heart disease. She has two sisters, one with heart disease and borderline blood sugars, the other with a history of breast cancer status post mastectomy; and her paternal grandmother had type 1 diabetes. REVIEW OF SYSTEMS: A complete review of systems is negative. PHYSICAL EXAMINATION: On physical exam, her blood pressure is 128/65, weight 157 pounds. In general, she looks well. Her skin is smooth, warm, and dry. She has large areas of lipohypertrophy on her abdomen where she is giving her insulin and areas of lipohypertrophy on her legs where she gave her insulin through most of her life. There is no ulcerations. On neurologic exam, motor strength and tone are normal. Gait is normal. Psych: Mood and affect are appropriate. Cardiovascular: No edema. Laboratory tests are pending. IMPRESSION: 1. Diabetes. Blood sugar control is somewhat erratic and I wonder because she is using areas of lipohypertrophy for her insulin injections. I talked about having her change her injectionsite. She may notice some hypoglycemia with that and need to adjust her basal rates, and I think once we can avoid those areas, blood sugars may smooth out again. 2. Hypertension is well controlled. PLAN: 1. Await laboratory tests. 2. Avoid areas of lipohypertrophy for insulin injection sites. 3. Follow up with Abby Campbell in six months. Recent Results (from the past 24 hour(s)) BASIC METABOLIC PANEL (NON-FASTING) Component Value Range Glucose Lvl 323 (*) 60 - 199 (mg/dL) BUN 21 (*) 8 - 18 (mg/dL) Creatinine 0.96 0.70 - 1.20 (mg/dL) Sodium 135 135 - 145 (mmol/L) Potassium 4.2 3.5 - 5.0 (mmol/L) Chloride 101 98 - 107 (mmol/L) CO2 25 22 - 31 (mmol/L) Anion Gap 9 5 - 15 (mmol/L) Calcium 9.3 8.5 - 10.5 (mg/dL) Estimated GFR 60 >=60 HEMOGLOBIN A1C Component Value Range Hemoglobin A1C 7.0 (*) 4.3 - 6.1 (%) Est Avg Gluc 154 TSH Component Value Range TSH 2.17 0.27 - 4.20 (mcIU/mL) HDL/CHOL PROFILE Component Value Range Chol, Total 189 <=199 (mg/dL) HDL 92 >=40 (mg/dL) Chol/HDL Ratio 2.1 LDL CHOLESTEROL, DIRECT Component Value Range LDL Chol Direct 98 <=99 (mg/dL) MICROALBUMIN, URINE, RANDOM Component Value Range U Creatinine 16 U Ran Malb Conc <3.0 U Ran Malb Calc <19 documented in this encounter Plan of Treatment Upcoming Encounters Date Type Department Care Team (Late st Contact Info) Description 06/05/2024 10:15 AM EST Office [place] [address] Namita Bansal MD [facility] [place] [address] documented as of this encounter Goals Goal Patient Goal Type Associated Problems Recent Progress Patient-Stated? Author Exercise 3x per week (30 min per time) Exercise No Keila Arango, CHRISTIANO documented as of this encounter Visit Diagnoses Diagnosis Type I (juvenile type) diabetes mellitus without mention of complication, not stated as uncontrolled- Primary documented in this encounter Care Teams Car Inspector Relationship Specialty Start Date End Date Mitchell Yap MD [address] [place] [address] PCP - General 05/19/10 07/17/23 documented as of this encounter
--- OUTSIDE RECORDS SUMMARY | 2024-04-18 13:18 | XMS_ITS | Encounter Summary ---
[place] [address] Care Team Providers Care Customer Marketing Assistant Name Role Phone Mitchell Yap MD Primary Care Provider [phone] Reason for Visit * Reason Onset Date Comments Other 05/10/2012 Encounter Details Date Type Department Care Team (Late st Contact Info) Description 05/10/2012 Telephone [place] [phone] Keila Arango, [facility] [place] [address] Other Social History Tobacco Use Types Packs/Day Years Used Date Smoking Tobacco: Former Cigarettes Q uit: 02/16/1979 Sex and Gender Information Value Date Recorded Sex Assigned at Female 11/02/2020 3:40 PM EDT Gender Identity Female 11/02/2020 3:40 PM EDT Sexual Orientation Straight 11/02/2020 3: 40 PM EDT documented as of this encounter Miscellaneous Notes * Telephone Encounter - Keila Arango, RN - 05/10/2012 9:15 AM EST I called this patient and the patient will change her sensor low alarm to 85 (per Abby Campbell AERIAL INSTALLER's request) documented in this encounter Plan of Treatment Upcoming Encounters Date Type Department Care Team (Late st Contact Info) Description 06/05/2024 10:15 AM EST Office [place] [address] Namita Bansal MD [facility] [place] [address] documented as of this encounter Goals Goal Patient Goal Type Associated Problems Recent Progress Patient-Stated? Author Exercise 3x per week (30 min per time) Exercise No Keila Arango, VELMAE documented as of this encounter Visit Diagnoses Not on filedocumented in this encounter Care Teams Customer Marketing Assistant Relationship Specialty Start Date End Date Mitchell Yap MD [address] [place] [address] PCP - General 05/19/10 07/17/23 documented as of this encounter
--- OUTSIDE RECORDS SUMMARY | 2024-04-18 13:18 | XMS_ITS | Encounter Summary ---
[place] [address] Care Team Providers Care Chute Puller Name Role Phone Mitchell Yap MD Primary Care Provider [phone] Reason for Referral * Consultation (Routine) - Closed Specialty Diagnoses / Procedures Referred By Malka vera Referred To Contact Endocrinology Diagnoses Type I (juvenile type) diabetes mellitus without mention of complication, not stated as uncontrolled Radha Miller MD [facility] [address] [place] [address] [facility] [place], [place] Endocrinology [address] [place] [id number] Referral ID Status Reason Start Date Expiration Date V isits Requested Visits Authorized [id number] Closed Specialty Service Requested 09/27/2013 03/26/2014 1 1 Reason for Visit * Reason Comments Diabetes Encounter Details Date Type Department Care Team (Late st Contact Info) Description 09/26/2013 11:00 AM EDT Office [place] [address] Ebonie Betancourt LD [facility] [address] [place] [address] Type I (juvenile type) diabetes mellitus without mention of complication, not stated as uncontrolled (Primary Dx) Social History Tobacco Use Types Packs/Day Years Used Date Smoking Tobacco: Former Cigarettes Q uit: 02/16/1979 Smokeless Tobacco: Never Sex and Gender Information Value Date Recorded Sex Assigned at Female 11/02/2020 3:40 PM EDT Gender Identity Female 11/02/2020 3:40 PM EDT Sexual Orientation Straight 11/02/2020 3: 40 PM EDT documented as of this encounter Progress Notes * Ebonie Betancourt, LD - 09/27/2013 7:46 AM EDT Diabetes Self-Management Education Program Medical Nutrition Therapy Follow- up Visit Referring Provider: MITCHELL YAP MD Ebonie has type 1 diabetes for 52 years and is on a MiniMed 530G insulin pump (523) with Enlite sensor. Diabetes Providers: Dr. Miller (seeing today) and Abby Campbell APRN. 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 She is also now caring for her 94 year old dad who is living with her. Her sister was caring for him but she suddenly. Insulin Pump settings: Basals: MN - 0.6 - changed to 0.575 today; 4 am - 0.6; 10 am - 0.45; 5 pm - 0.5; 6 pm - 0.475; 9 pm- 0.425 total basal = 12.25 units Ratios: MN - 14:1; 12:30 pm - 13:1; 6:30 pm - 14:1 CF: 55 all day Targets: 100 - 180 - changed to 100 - 140 today Insulin action time is 3 hours Easy bolus is on and I need to ask if she uses this as it will not use insulin on board feature. I would suggest she always use bolus wizard to correct high blood sugars as it tracks insulin on boardand so would help her avoid stacking her insulin. TDD for 2 weeks is 26 units with 44% bolus and 56% basal Suspending Pump: She does this most days on average for 3 hours and 15 minutes. One day up to 6 hours. She seems to be using this to avoid or treat low blood sugars but then often has high blood sugars following a suspension. I would suggest she instead treat the low with 15 gms of carb or if she wants to suspend to do this for no more than 1 hour. It may be that her pump settings are not correctif she needs to suspend so frequently. She could also use a lower temporary basal which is not turned on but right now. She feels she cannot learn one more thing as is a bit overwhelmed with life Sensor settings: Glucose alerts: 60 and 275 ((should change this to 300 or 350 or suggest that she not respond if BG<300) Alert repeat is 1 hour ((should change this to 2 hours) Predictive alerts for high and low are set at 15 minutes (should shut off high predictive alert) All of these suggestions are to avoid alarm fatigue and to avoid over reacting to high blood sugarswhich can lead to stacking boluses. She is aware that she may be stacking insulin and when looking at the download of her pump/sensor, insulin action is very high from 6 to midnight and may be causing some low blood sugars in the middle of the night. Infusion set: Changing set on average every 5 days and i snot filling cannula. I do not know what type of infusion set she is using but if Quick Set 9 mm, she needs to prime 0.5 units to fill cannula and if 6 mm needs to prime 0.3 units. We also discussed changing her infusion set every 3 days to avoid risk of infection and also degradation of insulin after third day. She is filling cartridge to 180 units and for her insulin needs for 3 days, I would recommend she fill it to 110 units. Diet History: Breakfast may just be coffee Lunch - at work gets salad bar with protein (beans, cottage cheese) and does bolus some for this. At home may have pnb and j sandwich and fruit with her dad. Dinner: chicken, rice, milk. Does enjoy a glass of wine with her dad before dinner Snack at night. Plays scrabble and may have flavored almonds. Is trying to bolus for these. She does not have dual wave bolus feature on. Weight is 152 pounds (she lost weight at last visit and has kept it off) HbA1c today is 7% (it had gone up to 7.9% at PCP visit which upset her. Ebonie tries very hard and does an excellent job managing her diabetes but we need to make sure her pump settings are correct to make her life easier, not harder. Time Spent Diabetes Education/Medical Nutrition Therapy: 30 minutes. documented in this encounter Plan of Treatment Upcoming Encounters Date Type Department Care Team (Late st Contact Info) Description 06/05/2024 10:15 AM EST Office [place] [address] Namita Bansal MD [facility] [place] [address] Scheduled Referrals Name Type Priority Associated Diagnoses Orde r Schedule Referral to Diabetic Education Outpatient Referral Routine DM w/o complication type I Ordered: 09/27/2013 documented as of this encounter Goals Goal Patient Goal Type Associated Problems Recent Progress Patient-Stated? Author Exercise 3x per week (30 min per time) Exercise No Keila Arango, CHRISTIANO documented as of this encounter Visit Diagnoses Diagnosis Type I (juvenile type) diabetes mellitus without mention of complication, not stated as uncontrolled- Primary documented in this encounter Care Teams Chute Puller Relationship Specialty Start Date End Date Mitchell Yap MD [address] [place] [address] PCP - General 05/19/10 07/17/23 documented as of this encounter
--- OUTSIDE RECORDS SUMMARY | 2024-04-18 13:18 | XMS_ITS | Encounter Summary ---
[place] [address] Care Team Providers Care Lead Manufacturing Technician Name Role Phone Mitchell Yap MD Primary Care Provider [phone] Encounter Details Date Type Department Care Team (Late st Contact Info) Description 11/24/2012 Telephone [place] [phone] Keila Arango E [facility] DR ENDOCRINOLOGY [place] [address] Social History Tobacco Use Types Packs/Day Years Used Date Smoking Tobacco: Former Cigarettes Q uit: 02/16/1979 Sex and Gender Information Value Date Recorded Sex Assigned at Female 11/02/2020 3:40 PM EDT Gender Identity Female 11/02/2020 3:40 PM EDT Sexual Orientation Straight 11/02/2020 3: 40 PM EDT documented as of this encounter Miscellaneous Notes * Telephone Encounter - Keila Arango RN - 11/24/2012 2:01 PM EDT Please refer this patient for diabetes pump education on 11/27/12. Thank you, Keila documented in this encounter Plan of Treatment Upcoming Encounters Date Type Department Care Team (Late st Contact Info) Description 06/05/2024 10:15 AM EST Office Visit [place] [address] Namita Bansal MD [facility] DR ENDOCRINOLOGY [place] [address] documented as of this encounter Goals Goal Patient Goal Type Associated Problems Recent Progress Patient-Stated? Author Exercise 3x per week (30 min per time) Exercise No Keila Arango, CDE documented as of this encounter Visit Diagnoses Not on filedocumented in this encounter Care Teams Lead Manufacturing Technician Relationship Specialty Start Date End Date Mitchell Yap MD [address] [place] [address] PCP - General 05/19/10 07/17/23 documented as of this encounter
--- OUTSIDE RECORDS SUMMARY | 2024-04-18 13:18 | XMS_ITS | Encounter Summary ---
[place] [address] Care Team Providers Care Beam Dyer Name Role Phone Mitchell Yap MD Primary Care Provider [phone] Reason for Visit * Reason Comments Medication Refill Encounter Details Date Type Department Care Team (Late st Contact Info) Description 04/10/2011 Ref[place] [phone] Abby Campbell APRN [facility] [place] [address] Social History Tobacco Use Types Packs/Day Years [...] EST Office [place] [phone] Namita Bansal MD [facility] [place] [address] documented as of this encounter Goals Goal Patient Goal Type Associated Problems Recent Progress Patient-Stated? Author Exercise 3x per week (30 min per time) Exercise No Kelia Arango, CDE documented as of this encounter Visit Diagnoses Not on filedocumented in this encounter Care Teams Beam Dyer Relationship Specialty Start Date End Date Mitchell Yap MD [address] [place] [address] PCP - General 05/19/10 07/17/23 documented as of this encounter
--- OUTSIDE RECORDS SUMMARY | 2024-04-18 13:18 | XMS_ITS | Encounter Summary ---
[place] [address] Care Team Providers Care Physical Therapist Assistant Name Role Phone Mitchell Yap MD Primary Care Provider [phone] Reason for Visit * Reason Onset Date Comments Labs Only 01/07/2011 Encounter Details Date Type Department Care Team (Late st Contact Info) Description 01/07/2011 Telephone [place] [phone] Abby Campbell APRN [facility] [address] Labs Only Social History Tobacco Use Types Packs/Day Years Used Date Smoking Tobacco: Never Assessed Sex and Gender Information Value Date Recorded Sex Assigned at Female 11/02/2020 3:40 PM EDT Gender Identity Female 11/02/2020 3:40 PM EDT Sexual Orientation Straight 11/02/2020 3: 40 PM EDT documented as of this encounter Miscellaneous Notes * Telephone Encounter - Abby Campbell APRN - 01/07/2011 10:37 AM EDT lab documented in this encounter Plan of Treatment Upcoming Encounters Date Type Department Care Team (Late st Contact Info) Description 06/05/2024 10:15 AM EST Office Visit [place] [phone] Namita Bansal MD [facility] [place] [address] documented as of this encounter Results * Hepatic function panel [...] Peguero MD CHEMISTRY ORDERABLES Performing Organization Address City/[facility]/ZIP Co de Phone Number CERNER MILLENNIUM * TSH (02/16/2011 9:19 AM EDT) Thyroid Stimulating Hormone 2.87 0.27 - 4.20 mcIU/mL CERNER MILLENNIUM Blood specimen (specimen) 02/16/2011 9:19 AM EDT 02/16/2011 9:23 AM EDT Torsten Peguero MD CHEMISTRY ORDERABLES CERNER MILLENNIUM * LDL cholesterol, direct (02/16/2011 9:19 AM EDT) LDL Cholesterol, Direct 99 <=99 mg/dL CERNER MILLENNIUM Comment: The National Cholesterol Education Program (NCEP) has set the following guidelines for LDL Cholesterol: Reference range: ?? Optimal: ?<100 mg/dL ?? Near Optimal/Above Optimal: ?? 100-129 mg/dL ?? Borderline high: ?130-159 mg/dL ?? High: ? 160-189 mg/dL ?? Very high: ?>tr=812 mg/dL SUJATA 2001: 285(19):1672-2578 Blood specimen (specimen) 02/16/2011 9:19 AM EDT 02/16/2011 9:23 AM EDT Torsten Peguero MD CHEMISTRY ORDERABLES [facility] * HDL cholesterol (02/16/2011 9:19 AM EDT) Cholesterol, Total 184 <=199 mg/dL [facility] Comment: Recommendations of the NCEP Adult Treatment Panel for the following risk cutoff thresholds for the [place] population: Desirable: <200 mg/dL Borderline High: 200-239 mg/dL High: > or = 240 mg/dL HDL Cholesterol 82 >=40 mg/dL [facility] Comment: Reference range: ??Low HDL: ?? < 40 mg/dL ??Normal: ?40-60 mg/dL ??Desirable: > 60 mg/dL SUJATA 2001; 285(19):1378-8284 Cholesterol/HDL Ratio 2.2 ratio [facility] Comment: A Cholesterol to HDL ratio below 4:1 is desirable. ??Studies suggest that increased CAD risk occurs at ratios above 5 for females and above 6 for men. ? [place] Heart Association ??(http://www.americanheart.org) ? Ani Int Med, 1994; 121:641 ? AM J Med, 1998; 105(1A):48S Blood specimen (specimen) 02/16/2011 9:19 AM EDT 02/16/2011 9:23 AM EDT Torsten Peguero MD CHEMISTRY ORDERABLES [facility] * (ABNORMAL) Hemoglobin A1c (02/16/2011 9:19 AM EDT) Hemoglobin A1c 6.9(H) 4.3 - 6.1 % [facility] Estimated Average Glucose 151 mg/dL [facility] Comment: eAG equivalents for HbA1c percentages: [...] into estimated average glucose values. ??Diabetes Care 2008:31(8):7745-9894. Blood specimen (specimen) 02/16/2011 9:19 AM EDT 02/16/2011 9:23 AM EDT Torsten Peguero MD CHEMISTRY ORDERABLES Performing Organization Address City/State/[facility] Co mt Phone Number [facility] documented in this encounter Visit Diagnoses Diagnosis Diabetes- Primary Type II or unspecified type diabetes mellitus without mention of complication, not stated as uncontrolled documented in this encounter Care Teams Physical Therapist Assistant Relationship Specialty Start Date End Date Mitchell Yap MD [address] [place] [address] PCP - General 05/19/10 07/17/23 documented as of this encounter
--- OUTSIDE RECORDS SUMMARY | 2024-04-18 13:18 | XMS_ITS | Encounter Summary ---
[place] [address] Care Team Providers Care Synthetic Filament Extruder Name Role Phone Mitchell Yap MD Primary Care Provider [phone] Reason for Visit * Reason Onset Date Comments Medication Refill 11/02/2013 Encounter Details Date Type Department Care Team (Late st Contact Info) Description 11/02/2013 Refill Endocr[place] [phone] Radha Miller MD [facility] [place] [address] Social History Tobacco Use Types Packs/Day Years Used Date Smoking Tobacco: Former Cigarettes Q uit: 02/16/1979 Smokeless Tobacco: Never Sex and Gender Information Value Date Recorded Sex Assigned at Female 11/02/2020 3:40 PM EDT Gender Identity Female 11/02/2020 3:40 PM EDT Sexual Orientation Straight 11/02/2020 3: 40 PM EDT documented as of this encounter Miscellaneous Notes * Addendum Note - Siomara Henry RN - 11/02/2013 4:26 PM EDTAddended by: SIOMARA HENRY on: 11/02/2013 04:26 PM Modules accepted: Orders * Telephone Encounter - Siomara Henry RN - 11/02/2013 4:19 PM EDT [facility] Medical's forms for insulin pump supplies and CGM supplies completed and given to Dr. Miller for signature. To be faxed to [facility] at [phone]. documented in this encounter Plan of Treatment Upcoming Encounters Date Type Department Care Team (Late st Contact Info) Description 06/05/2024 10:15 AM EST Office Visit End[place] [address] [facility] [place] [address] documented as of this encounter Goals Goal Patient Goal Type Associated Problems Recent Progress Patient-Stated? Author Exercise 3x per week (30 min per time) Exercise No Keila Arango, CHRISTIANO documented as of this encounter Visit Diagnoses Not on filedocumented in this encounter Care Teams Synthetic Filament Extruder Relationship Specialty Start Date End Date Mitchell Yap MD [address] [place] [address] PCP - General 05/19/10 07/17/23 documented as of this encounter
--- OUTSIDE RECORDS SUMMARY | 2024-04-18 13:18 | XMS_ITS | Encounter Summary ---
[place] [address] Care Team Providers Care Commercial Correspondent Name Role Phone Mitchell Yap MD Primary Care Provider [phone] Reason for Visit * Reason Comments Diabetes Encounter Details Date Type Department Care Team (Late st Contact Info) Description 03/27/2014 9:00 AM EDT Office [place] [address] Abby Campbell [facility] [place] [address] Type I (juvenile type) diabetes mellitus without [...] Sign Reading Time Taken Comments Blood Pressure 139/70 03/27/2014 9:40 AM EDT Pulse 69 03/27/2014 9:40 AM EDT Temperature - - Respiratory Rate - - Oxygen Saturation - - Inhaled Oxygen Concentration - - Weight 72.2 kg (159 lb 3.2 oz) 03/27/2014 9:40 A M EDT Height - - Body Mass Index 32.15 08/12/2011 1:34 PM EST documented in this encounter Patient Instructions * Patient Instructions* Abby Campbell APRN - 03/27/2014 10:40 AM EDT Use bag balm before bed to crack between toes Hopefully, you will be able to find some help to care for your father documented in this encounter Progress Notes * Abby Campbell APRN - 03/27/2014 10:34 AM EDT DATE OF VISIT: 03/27/2014 REASON FOR VISIT: Followup type 1 DM in continued good overall control with widely fluctuating glucose levels. BRIEF HISTORY: Had appointment earlier this a.m. with CHRISTIANO PINO. DATE OF DIAGNOSIS OF DIABETES: 1957. COMPLICATIONS: None. SBGM: Six times a day and uses MiniMed sensor, but is having problems with the sensor causing a rash recently. Reason for higher frequency testing is to avoid severe hypoglycemia. She has had some severely low glucose levels recently in the 30s and 40s, which occurred after she went for a hike even though she turned off the pump during the hike and for up to half an hour after a hike. DIABETES REGIMEN: Paradigm MiniMed Revel 523. Basal rates at midnight, 0.575; at 5 a.m., 0.6; at 10 a.m., 0.45; at 1700, 0.5; at 1800, 0.475; at 2100, 0.425. Total basal 12.225. Cezditq-co-zzkb at midnight, 1:14, at 12:30, 13, at 18:30, 14. Sensitivity 55. Target glucose 100 to 140. Active insulin x3 hours. Daily bolus average 17.4, 59% bolus and 41% basal. COMPLICATIONS: None. 24-HOUR MEAL PLAN: See CHRISTIANO PINO note. IMMUNIZATION UPDATE: Has had flu vaccine this fall. REVIEW OF SYSTEMS: Depression and Mood: Discusses some higher stress since her 94-year-old father has moved in with her and her . 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 At home is her supportive . Looks forward to time with her grandson, Hakeem. Eyes: No recent vision changes. No recent headaches or chest pain or shortness of breath. No recent GI symptoms. Appetite is good. Sleep Pattern: States she sleeps with one ear open, worried about her father. Extremities are okay. Had testing this spring for right flank pain. Had ultrasound and x-rays, which were negative and symptoms have resolved. PHYSICAL EXAMINATION: Appearance: She appears in excellent health. Mildly overweight, weight 159 pounds. Blood pressure 139/70. Eyes: No retinopathy with green light exam. Neck: No thyromegaly or lymphadenopathy. Heart: Regular rate and rhythm. No murmurs. Lungs are clear to auscultation. Feet: Skin is normal except has a crack between the left first and second toes. Pulses are normal. Neuro: Normal sensation to 10 g of pressure. Hemoglobin A1c done in [place], [place] [facility], 6.9% on 02/01/2014. IMPRESSION AND PLAN: Diabetes mellitus type 1 with some hypoglycemia in good overall control. No change in regimen today. The patient plans to contact [facility] to see if another sensor device can be sent and hopefully will not cause a rash. Advised the patient if she has planned physical activity after a meal, okay to lower the bolus for that meal by 50% to avoid hypoglycemia with physical activity. Blood pressures at goal. She does take an STEFANY inhibitor. Does not take a statin. Stressed to patient the importance of taking care of her emotional health. Return to office in September with Dr. Miller. The patient has labs done at her local lab and result faxed to endocrinology. She will be due for CMP, hemoglobin A1c, HDL, DLDL, or fasting lipids, and TSH. This was a 33-minute office visit with 32 minutes spent counseling [id number] with the patient in the management of glucose levels, reviewing prevention and treatment of hypoglycemia especially in the setting of exercise and stressing the importance of taking care of her emotional health. documented in this encounter Plan of Treatment Upcoming Encounters Date Type Department Care Team (Late st Contact Info) Description 06/05/2024 10:15 AM EST Office [place] [address] Namita Bansal MD [facility] [place] [address] documented as of this encounter Goals Goal Patient Goal Type Associated Problems Recent Progress Patient-Stated? Author Exercise 3x per week (30 min per time) Exercise No Keila Arango, CDE documented as of this encounter Visit Diagnoses Diagnosis Type I (juvenile type) diabetes mellitus without mention of complication, not stated as uncontrolled- Primary documented in this encounter Care Teams Commercial Correspondent Relationship Specialty Start Date End Date Mitchell Yap MD [address] [place] [address] PCP - General 05/19/10 07/17/23 documented as of this encounter
--- OUTSIDE RECORDS SUMMARY | 2024-04-18 13:18 | XMS_ITS | Encounter Summary ---
[place] [address] Care Team Providers Care Certified Orthotist/Pedorthist Name Role Phone Mitchell Yap MD Primary Care Provider [phone] Reason for Visit * Reason Comments Diabetes Encounter Details Date Type Department Care Team (Late st Contact Info) Description 11/27/2012 9:00 AM EDT [place] [address] Abby Campbell [facility] [place] [address] Type I (juvenile type) diabetes mellitus without [...] encounter Patient Instructions * Patient Instructions* Abby Campbell, JIMY - 11/27/2012 10:32 AM EDT Review treatment of low glucose level with and co-workers. Stop pump when low. Review glucagon use documented in this encounter Progress Notes * Abby Campbell APRN - 11/27/2012 10:47 AM EDT DATE OF VISIT: 11/27/2012 REASON FOR VISIT: Followup type 1 DM, in continued good overall control using an insulin pump. Also, followup hypertension in good control. BRIEF HISTORY: Presents for followup. Had appointment earlier this a.m. with RNCHRISTIANO. DIABETES REGIMEN: Basal rates; 12 a.m. 0.4, 3 a.m. 0.4, 4:30 0.4, 10 0.45, 1700 0.5, 1800 0.45, 2100 0.40. Total basal 10.2. At 12:30 insulin to carb is 13 and at 1830 insulin to carb is 14. Sensitivity factor 55. Target 100 to 115. Active insulin three hours. 24-HOUR MEAL PLAN: See RN, CHRISTIANO note. The patient has lost 5 pounds which she states is from using treadmill for distance of a mile most days of the week. PREVENTION STRATEGY: She does take an STEFANY inhibitor, does not take a statin. Had annual eye exam at [facility]. Has no retinopathy. Goes to the dentist. REVIEW OF SYSTEMS: Depression and Mood: Happily looking forward to a trip to [place] to celebrate her 37 anniversary. Eyes: No recent vision changes. No recent headaches. No chest pain. No shortness of breath. No GI symptoms. Appetite is good. Sleep pattern is good. Skin: No rashes. No sores. Extremities are good. DATE OF DIAGNOSIS OF DIABETES: 1957. SBGM: Eight to 10 times a day and uses the sensor with her, MiniMed pump. PHYSICAL EXAMINATION: Appearance: She appears in very good health. She is mildly overweight. Weight 152 pounds, she lost 5 pounds since previous office visit. Blood pressure 128/58. Eyes: No retinopathy by green light exam. Neck: No thyromegaly or lymphadenopathy. Heart: Regular rate and rhythm. No murmurs. Lungs are clear to auscultation. Feet: Skin is normal. Pulses are normal. Neuro: Normal sensation to 10 g of pressure. LABORATORY DATA: No labs were done today. Hemoglobin A1c done at PCP office two weeks ago was 7.2%. IMPRESSION AND PLAN: Diabetes mellitus type 1, in good overall control. The patient discusses very scary low glucose level she had in the past. Reviewed prevention and treatment of hypoglycemia. Reviewed that coworker or will stop pump or take it off and use glucagon. Reviewed glucagon use, given DVD. Also, given [facility] diabetes tool kit booklet. Return to office in six months with Dr. Miller. Will check hemoglobin A1c, CMP, TSH, microalbumin, HDL, DLDL, and vitamin D. Schedule appointment with RN, CHRISTIANO same day. The patient will be getting a new pump. She states she has been having problems with hers and hopes that the new pump will arrive before her trip to [place]. documented in this encounter Plan of Treatment Upcoming Encounters Date Type Department Care Team (Late st Contact Info) Description 06/05/2024 10:15 AM EST [place] [address] Namita Bansal MD [facility] [place] [address] documented as of this encounter Goals Goal [...] Mellitus, Diabetes Care 2013; 36: Suppl. 1, F77-54 Estimated Average Glucose 154 mg/dL [facility] Comment: eAG equivalents for HbA1c [...] into estimated average glucose values. ??Diabetes Care 2008:31(8):1917-0159. Blood specimen (specimen) 09/26/2013 9:29 AM EDT 09/26/2013 9:35 AM EDT Narrative Resulting Agency Comment Spec In Lab Torsten Peguero MD CHEMISTRY ORDERABLES [facility] documented in this encounter Visit Diagnoses Diagnosis Type I (juvenile type) diabetes mellitus without mention of complication, not stated as uncontrolled- Primary documented in this encounter Care Teams Certified Orthotist/Pedorthist Relationship Specialty Start Date End Date Mitchell Yap MD [address] [place] [address] PCP - General 05/19/10 07/17/23 documented as of this encounter
--- OUTSIDE RECORDS SUMMARY | 2024-04-18 13:18 | XMS_ITS | Encounter Summary ---
[place] [address] Care Team Providers Care Mri Technologist Name Role Phone Mitchell Yap MD Primary Care Provider [phone] Reason for Visit * Reason Comments Diabetes Encounter Details Date Type Department Care Team (Late st Contact Info) Description 08/12/2011 12:30 PM EST Office [place] [phone] Abby Campbell, [facility] [place] [address] Diabetes mellitus type 1 (Primary Dx) Discharge Disposition: Home Social History [...] Sign Reading Time Taken Comments Blood Pressure 125/73 08/12/2011 1:34 PM EST Pulse 86 08/12/2011 1:34 PM EST Temperature - - Respiratory Rate - - Oxygen Saturation - - Inhaled Oxygen Concentration - - Weight 73.2 kg (161 lb 6.4 oz) 08/12/2011 1:34 P M EST Height 149.9 cm (4' 11) 08/12/2011 1:34 PM EST Body Mass Index 32.6 08/12/2011 1:34 PM EST documented in this encounter Progress Notes * Abby Campbell APRN - 08/12/2011 4:43 PM EST OFFICE VISIT NOTE DATE OF VISIT: 08/12/2011 REASON FOR VISIT: Followup type 1 DM, in continued very good control using a MiniMed pump and a MiniLink sensor. DATE OF DIAGNOSIS OF DIABETES: At age 7. DIABETES REGIMEN: MiniMed pump. Uses Humalog. Basal rates; 12 a.m. 0.4, 3 a.m. 0.4, 5 a.m. 0.5, 10 a.m. 0.5, 5 p.m. 0.5, 6 p.m. 0.5, 2100 0.45. Total basal 11.35. Total daily doses range from 23.7 to 29 units. Sensitivity factor 55, target 100 to 115. PREVENTION STRATEGIES: She does take an STEFANY inhibitor and she does take an aspirin. Does have an annual dilated eye exam. Does go to the dentist. REVIEW OF SYSTEMS: Depression and Mood: Happily expecting her first grandchild in November. Eyes: No recent vision changes. No headaches. No chest pain. No shortness of breath. No GI symptoms. Appetite is good. Sleep pattern is good. Skin: No rashes. No sores. Extremities: No joint pains. 24-HOUR MEAL PLAN: Breakfast is one piece of 15-grain bread with almond butter. Morning snack is fruit. Lunch is a salad with protein, either cottage cheese or eggs. Dinner, pork roast, vegetables, and potatoes, occasionally has a pizza. Evening snack, sometimes rice chips or popcorn. PHYSICAL ACTIVITY: Has started using the treadmill up to 20 minutes most days of the week. PHYSICAL EXAMINATION: Appearance: She appears in excellent health. Eyes: No retinopathy by green light exam. Neck: No thyromegaly or lymphadenopathy. Heart: Regular rate and rhythm. No murmurs. Lungs are clear to auscultation. Feet: Skin is normal. Pulses are normal. Neurologic: Normal sensation to 10 g of pressure. Lab done in June at PCP office, hemoglobin A1c 7.1%. IMPRESSION AND PLAN: Diabetes mellitus type 1, in continued very good control using a MiniMed insulin pump and sensor. She states since she has been using the sensor she has much less occurrence of hypoglycemia. She would like to schedule an appointment with CHRISTIANO CARPENTER to continue to try to use the pump to its fullest advantage. This was a 30-minute office visit with 29 minutes spent counseling with the patient in the management of glucose levels and the prevention of hypoglycemia, reviewing blood pressure targets and cholesterol targets. She does an excellent job managing her diabetes. Return to office in January with Dr. Miller. Will check hemoglobin A1c and other labs that she is due for. documented in this encounter Plan of Treatment Upcoming Encounters Date Type Department Care Team (Late st Contact Info) Description 06/05/2024 10:15 AM EST Office [place] [address] Namita Bansal MD [facility] [place] [address] documented as of this encounter Goals Goal Patient Goal Type Associated Problems Recent Progress Patient-Stated? Author Exercise 3x per week (30 min per time) Exercise No Keila Arango CDE documented as of this encounter Results * Microalbumin, urine, random (05/29/2012 9:31 AM EST) Creatinine, Urine 16 mg/dL AR ALVAREZ MILLENNIUM Albumin, Urine <3.0 mg/L RUFUS Aguila MILLENNIUM Albumin / Creatinin Ratio, Urine <19 mcg/mg Cr [facility] Comment: Reference Range* Random collection (mcg/mg creatinine) Normal ?<30 Microalbuminuria ?? 30 - 300 Clinical Albuminuria ?? >300 *[place] Diabetes Association. Diabetic Nephropathy. Diabetes Care 1997;(Suppl 1):S24-S27 Exercise within 24 hour, infection, fever, CHF, marked hyperglycemia, and marked hypertension may elevate urinary albumin excretion over baseline values. Urine specimen (specimen) 05/29/2012 9:31 AM EST 05/29/2012 9:49 AM EST Narrative Resulting Agency Comment Spec In Lab Torsten Peguero MD URINE ORDERABLES Performing Organization Address [facility] de Phone Number JENNIFER DICKERSONEL [facility] * LDL Cholesterol, Direct (05/29/2012 9:23 AM EST) LDL Cholesterol, Direct 98 <=99 mg/dL [facility] Comment: The National Cholesterol Education Program (NCEP) has set the following guidelines for LDL Cholesterol: Reference range: ?? Optimal: ?<100 mg/dL ?? Near Optimal/Above Optimal: ?? 100-129 mg/dL ?? Borderline high: ?130-159 mg/dL ?? High: ? 160-189 mg/dL ?? Very high: ?>vt=938 mg/dL SUJATA 2001: 285(97):5306-5241 Blood specimen (specimen) 05/29/2012 9:23 AM EST 05/29/2012 9:31 AM EST Narrative Resulting Agency Comment Spec In Lab Torsten Peguero MD CHEMISTRY ORDERABLES Performing Organization Address [facility] de Phone Number [facility] * HDL/Cholesterol Profile (05/29/2012 9:23 AM EST) Cholesterol, Total 189 <=199 mg/dL [facility] Comment: Recommendations of the NCEP Adult Treatment Panel for the following risk cutoff thresholds for the [place] population: Desirable: <200 mg/dL Borderline High: 200-239 mg/dL High: > or = 240 mg/dL HDL Cholesterol 92 >=40 mg/dL [facility] Comment: Reference range: ??Low HDL: ?? < 40 mg/dL ??Normal: ?40-60 mg/dL ??Desirable: > 60 mg/dL SUJATA 2001; 285(19):5452-2915 Cholesterol/HDL Ratio 2.1 ratio [facility] Comment: A Cholesterol to HDL ratio below 4:1 is desirable. ??Studies suggest that increased CAD risk occurs at ratios above 5 for females and above 6 for men. ? [place] Heart Association ??(http://www.americanheart.org) ? Ani Int Med, 1994; 121:641 ? AM J Med, 1998; 105(1A):48S Blood specimen (specimen) 05/29/2012 9:23 AM EST 05/29/2012 9:31 AM EST Narrative Resulting Agency Comment Spec In Lab Torsten Peguero MD CHEMISTRY ORDERABLES Performing Organization Address [facility] de Phone Number [facility] * TSH (05/29/2012 9:23 AM EST) Thyroid Stimulating Hormone 2.17 0.27 - 4.20 mcIU/mL [facility] Blood specimen (specimen) 05/29/2012 9:23 AM EST 05/29/2012 9:31 AM EST Narrative Resulting Agency Comment Spec In Lab Torsten Peguero MD CHEMISTRY ORDERABLES Performing Organization Address [facility] de Phone Number [facility] * (ABNORMAL) Hemoglobin A1c (05/29/2012 9:23 AM EST) Hemoglobin A1c 7.0(H) 4.3 - 6.1 % [facility] Estimated Average Glucose 154 mg/dL [facility] Comment: eAG equivalents for HbA1c percentages: HbA1c(%) [...] into estimated average glucose values. ??Diabetes Care 2008:31(8):9624-2397. Blood specimen (specimen) 05/29/2012 9:23 AM EST 05/29/2012 9:31 AM EST Narrative Resulting Agency Comment Spec In Lab Torsten Peguero MD CHEMISTRY ORDERABLES [facility] * (ABNORMAL) Basic Metabolic Panel (non-fasting) (05/29/2012 9:23 AM EST) [facility] Glucose 323(H) 60 - 199 mg/dL [facility] Comment:Diabetes: >=200 mg/d L plus symptoms Blood Urea Nitrogen 21(H) 8 - 18 mg/dL [facility]ILL[facility]NI[facility] Creatinine 0.96 0.70 - 1.20 mg/dL [facility] Comment: Please note that the pediatric reference intervals supplied above were not validated at [facility]. Results from pediatric patients should be interpreted [...] In Lab Torsten Peguero MD CHEMISTRY ORDERABLES [facility] documented in this encounter Visit Diagnoses Diagnosis Diabetes mellitus type 1- Primary Type I (juvenile type) diabetes mellitus without mention of complication, not stated as uncontrolled documented in this encounter Care Teams Mri Technologist Relationship Specialty Start Date End Date Mitchell Yap MD [address] [place] [address] PCP - General 05/19/10 07/17/23 documented as of this encounter
--- OUTSIDE RECORDS SUMMARY | 2024-04-18 13:18 | XMS_ITS | Encounter Summary ---
[place] [address] Care Team Providers Care Outboard Motorboat Operator Name Role Phone Mitchell Yap MD Primary Care Provider [phone] Encounter Details Date Type Department Care Team (Late st Contact Info) Description 06/09/2012 Telephone [place] [address] Keila Arango CDE [facility] [place] [address] Social History Tobacco Use Types Packs/Day Years Used Date Smoking Tobacco: Former Cigarettes Q uit: 02/16/1979 Sex and Gender Information Value Date Recorded Sex Assigned at Female 11/02/2020 3:40 PM EDT Gender Identity Female 11/02/2020 3:40 PM EDT Sexual Orientation Straight 11/02/2020 3: 40 PM EDT documented as of this encounter Miscellaneous Notes * Telephone Encounter - Keila Arango RN - 06/16/2012 9:41 AM EST Close chart documented in this encounter Plan of Treatment Upcoming Encounters Date Type Department Care Team (Late st Contact Info) Description 06/05/2024 10:15 AM EST Office [place] [address] Namita Bansal MD [facility] [place] [address] documented as of this encounter Goals Goal Patient Goal Type Associated Problems Recent Progress Patient-Stated? Author Exercise 3x per week (30 min per time) Exercise No Keila Arango, CDE documented as of this encounter Visit Diagnoses Not on filedocumented in this encounter Care Teams Outboard Motorboat Operator Relationship Specialty Start Date End Date Mitchell Yap MD [address] [place] [address] PCP - General 05/19/10 07/17/23 documented as of this encounter
--- OUTSIDE RECORDS SUMMARY | 2024-04-18 13:18 | XMS_ITS | Encounter Summary ---
[place] [address] Care Team Providers Care Pest Control Chemical Technician Name Role Phone Mitchell Yap MD Primary Care Provider [phone] Encounter Details Date Type Department Care Team (Late st Contact Info) Description 07/23/2010 8:30 AM EST Office [place] [phone] Abby Campbell APRN [facility] [place] [address] Discharge Disposition: Home Social History Tobacco Use [...] 10:15 AM EST Office [place] [phone] Namita Bansal MD [facility] [place] [address] documented as of this encounter Visit Diagnoses Not on filedocumented in this encounter Care Teams Pest Control Chemical Technician Relationship Specialty Start Date End Date Mitchell Yap MD [address] [place] [id number] PCP - General 05/19/10 07/17/23 documented as of this encounter
--- OUTSIDE RECORDS SUMMARY | 2024-04-18 13:18 | XMS_ITS | Encounter Summary ---
Author Organization [place] [address] Care Team Providers Care Exerciser Name Role Phone Mitchell Yap MD Primary Care Provider [phone] Reason for Visit * Reason Onset Date Comments Medication Refill 10/31/2013 Encounter Details Date Type Department Care Team (Late st Contact Info) Description 10/31/2013 Ref[place] [phone] Radha Miller MD [facility] [place] [address] Social History Tobacco Use Types Packs/Day Years [...] 10:15 AM EST Office [place] [phone] Namita Bansal MD [facility] [place] [address] documented as of this encounter Goals Goal Patient Goal Type Associated Problems Recent Progress Patient-Stated? Author Exercise 3x per week (30 min per time) Exercise No Keila Arango, CDE documented as of this encounter Visit Diagnoses Not on filedocumented in this encounter Care Teams Exerciser Relationship Specialty Start Date End Date Mitchell Yap MD [address] [place] [id number] PCP - General 05/19/10 07/17/23 documented as of this encounter
--- NOTE | 2024-04-18 13:29 | W.ED.GENAD ---
Discharge Plan Discharge Details Primary Care Provider: Corby Yancey ED Provider: Mikhail Ornelas Home Meds and New Rx's Prescriptions: No Action glucosamine sulfate 2KCl [Glucosamine Relief] 1,000 mg tablet 1,000 mg PO DAILY Rx Instructions: administer with meals lisinopril 10 mg tablet 10 mg PO DAILY insulin lispro [Humalog U-100 Insulin] 100 unit/mL solution 20 - 25 unit subcut DAILY acetaminophen [Tylenol Extra Strength] 500 mg tablet 1,000 mg PO QAM atorvastatin 20 mg tablet 20 mg PO HS cholecalciferol (vitamin D3) 50 mcg (2,000 unit) capsule 2,000 unit PO HS Patient Comments: TAKE ONE CAPSULE BY MOUTH EVERY DAY dexlansoprazole [Dexilant] 30 mg capsule,biphase delayed releas 30 mg PO HS multivitamin [Multiple Vitamins] Tablet 1 tab PO HS albuterol sulfate [ProAir HFA] 90 mcg/actuation Hfa Aerosol Inhaler 1 - 2 inh Inhalation Q4H PRN magnesium 250 mg Tablet 250 mg PO HS ibuprofen 200 mg Tablet 600 mg PO HS glucagon HCl [Glucagon (HCl) Emergency Kit] 1 mg Recon Soln 1 mg SUBCUT Q20M PRN Patient Comments: pt. reports 6 months, pt. reports coming to hospital for her DM, in the spring Rx Instructions: until target blood sugar attained HPI General Date/Time Provider Initiated Documentation: 04/18/24 13:21. HPI Narrative: 69 year-old female presents to ED today by POV/ambulating with a chief complaint of generalized body aches, headache, shortness of breath- tested negative for Covid at home, also reporting diplopia and blurred vision with onset over the past few days. Quality described as generalized bodyaches, states bone pain in her head, blurred vision without vision loss, denies chest pain, no radiation to cough, intractable nausea or vomiting, high fever, sweating, palpitations, endorses dizziness and blurry vision, question diplopia as well, denies slurred speech. Severity is described as severe. Palliating factors include nothing specific attempted. Provoking factors include nothing specific. Events leading up to the incident/Associated Symptoms: Patient has diabetes type 1 states her blood sugar has been fine. Patient not anticoagulated. Related Data Home Medications ?Medication ?Instructions ?Recorded ?Confirmed albuterol sulfate 90 mcg/actuation 1 - 2 inh inhalation Q4H PRN 04/25/19 10/23/24 aerosol inhaler (ProAir HFA) magnesium 250 mg tablet 250 mg PO HS 10/19/18 04/18/24 multivitamin (Multiple Vitamins 1 tab PO HS 10/19/18 04/18/24 tablet) insulin lispro 100 unit/mL 20 - 25 unit subcut DAILY 03/09/21 04/18/24 subcutaneous solution (Humalog U-100 Insulin) acetaminophen 500 mg tablet 1,000 mg PO QAM 07/21/21 04/18/24 (Tylenol Extra Strength) atorvastatin 20 mg tablet 20 mg PO HS 08/13/21 04/18/24 cholecalciferol (vitamin D3) 50 2,000 unit PO HS 08/05/22 04/18/24 mcg (2,000 unit) capsule dexlansoprazole 30 mg 30 mg PO HS 09/08/22 04/18/24 capsule,biphase delayed release (Dexilant) glucagon HCl 1 mg solution for 1 mg subcut Q20M PRN 09/22/22 04/18/24 injection (Glucagon (HCl) Emergency Kit) ibuprofen 200 mg tablet 600 mg PO HS 09/22/22 04/18/24 glucosamine sulfate 2KCl 1,000 mg 1,000 mg PO DAILY 05/06/23 04/18/24 tablet (Glucosamine Relief) lisinopril 10 mg tablet 10 mg PO DAILY 06/13/23 04/18/24 Allergies Allergy/AdvReac Type Severity Reaction Status Date / Time Penicillins Allergy Severe Anaphylaxis Unverified 04/18/24 12:58 prochlorperazine Allergy Severe Other (See Unverified 04/18/24 12:58 Comment) naproxen Allergy Mild Unknown Unverified 04/18/24 12:58 latex AdvReac Mild vertigo Unverified 04/18/24 12:58 mannitol (From Reclast) AdvReac vertigo, Verified 04/18/24 12:58 unsteadiness water for injection,sterile AdvReac vertigo, Verified 04/18/24 12:58 (From Reclast) unsteadiness zoledronic acid (From AdvReac vertigo, Verified 04/18/24 12:58 Reclast) unsteadiness General Stated Complaint: [facility] SARAH: 3 Review of Systems All systems reviewed & are unremarkable except as noted in HPI and below Exam Narrative Exam Narrative: GENERAL APPEARANCE: Well-nourished, non-toxic, awake and alert, atraumatic, no acute distress. SKIN: Warm, pink, dry, intact, without rashes/lesions/ulcerations. HEAD: Normocephalic, atraumatic, normal hair distribution for gender/age. EYES: Normal conjunctiva, no exudates on lids/lashes. ENT: Nares patent, no circumoral cyanosis, no facial swelling NECK: Supple, trachea midline, painless cervical ROM. LUNGS/CHEST: Lungs CTA bilaterally, non-labored respirations, normal A/P diameter, symmetrical expansion, no chest wall deformity HEART (CV/PV): Regular rate and rhythm without murmur, no peripheral edema, no JVD. ABDOMEN: Soft, non-distended, no guarding. MSK: Normal ROM, no swelling/deformity to bilateral UEs or LEs, moving all extremities without weakness, no cyanosis, spine midline without tenderness, normal curvature. NEURO: Mental Status AAOx4 - alert to person, place, time, events No facial droop, no forehead involvement. Motor: No focal weakness - strength 5/5 in bilateral UEs and LEs, proximal and distal, symmetric. Sensory: sensation intact to light touch globally. Gait normal: patient ambulated without ataxia into ED room. PSYCH: euthymic, cooperative, pleasant, appropriate speech Course Vital Signs Vital signs: Vital Signs Temperature 36.1 C L 04/18/24 12:50 Pulse 88 04/18/24 12:50 Respiratory Rate 16 04/18/24 12:50 Blood Pressure 134/77 04/18/24 12:50 Pulse Oximetry 97 04/18/24 12:50 Temperature 36.1 C L 04/18/24 12:50 Temperature Source Temporal Artery Scan 04/18/24 12:50 Pulse 88 04/18/24 12:50 Respiratory Rate 16 04/18/24 12:50 Blood Pressure 134/77 04/18/24 12:50 Blood Pressure Position Sitting 04/18/24 12:50 Pulse Oximetry 97 04/18/24 12:50 Oxygen Delivery Method Room Air 04/18/24 12:50 Oxygen Flow Rate 0 04/18/24 12:50 Pain Level 7 04/18/24 12:50 Medical Decision Making This dictation utilizes [id number] dictation software and may contain unedited grammatical errors. 69 year-old female presents to ED today by POV/ambulating with a chief complaint of generalized body aches, headache, shortness of breath- tested negative for Covid at home, also reporting diplopia and blurred vision with onset over the past few days. Quality described as generalized bodyaches, states bone pain in her head, blurred vision without vision loss, denies chest pain, no radiation to cough, intractable nausea or vomiting, high fever, sweating, palpitations, endorses dizziness and blurry vision, question diplopia as well, denies slurred speech. Severity is described as severe. Palliating factors include nothing specific attempted. Provoking factors include nothing specific. Events leading up to the incident/Associated Symptoms: Patient has diabetes type 1 states her blood sugar has been fine. Patients' medical history: Chronic dysphagia, intermittent asthma, GERD, palpitations, history of alcohol abuse, osteoporosis, cataract, diabetes mellitus, mild cognitive impairment, insulin-dependent diabetes mellitus, hypertension. Family and social history: Denies EtOH use, no recent travel or sick contacts. Pertinent exam findings / vital signs include neuro intact, vision grossly intact, subjective diplopia, visual guillermo intact, completely stable vitals, benign cardiopulmonary exam, benign abdomen. Differential / pathologies of concern include viral syndrome, migraine, TIA versus CVA while outside window-low suspicion, unlikely sepsis, question tickborne illness. Diagnostic studies of: -CBC, CMP, magnesium, troponin, TSH, UA, COVID/flu/RSV, tick panel, CTA brain and neck, x-ray chest, EKG. -CBC shows no leukocytosis or anemia, no left shift -CMP shows no actionable abnormality with mild signs of dehydration with slightly elevated sodium -Lactate negative -Magnesium negative -Troponin negative with reliable onset -TSH within normal limits -COVID/flu/RSV negative -Tick panel sent out -EKG without any acute abnormality or ectopy, I completely benign normal sinus rhythm with normal intervals and STs -imaging pending at sign-out Interventions of: -IV APAP, IV ketorlac, 5mg IV Reglan, 25mg IV Benadryl for relief of migraine ED Course/Assessment/Plan: 69-year-old female presents with bodyaches all over, mild shortness of breath and states she has bone pain in her head, her vitals are completely stable I do suspect she has some sort of migraine or viral syndrome, her vision is grossly intact and I do not suspect any focal neurodeficits. Patient is signed out to oncoming provider Kavita Parmar NP with CTA of the brain and neck pending, x-ray chest awaiting read but no overt pneumonia, likely discharge home. Findings not consistent with stroke, CRAO or CRVO, retinal detachment, vision loss, focal neurodeficit, sepsis, toxic illness. Disposition of viral syndrome. Patient verbalized understanding of the plan and return to ED criteria and engaged in shared decision making. Medical Records Medical records reviewed: Yes I reviewed the patient's medical records. Lab Data Lab results reviewed: Yes I reviewed the patient's lab results. Labs: Laboratory Tests Range/Units 04/18/24 04/18/24 04/18/24 13:35 13:44 14:50 WBC (4.4-10.8) 10^3/uL 6.50 RBC (3.93-5.22) 10^6/uL 4.27 Hgb (11.2-15.7) g/dL 13.3 Hct (36.0-46.0) % 40.0 MCV (80-95) fL 94 MCH (27.0-33.0) pg 31.1 MCHC (32.0-36.0) % 33.3 RDW (11.7-14.6) % 13.5 Plt Count (130-400) 10^3/uL 277 MPV (8.0-11.0) fL 10.1 Immature Gran % % 0.3 Neutrophils % % 65.5 Lymphocytes % % 22.6 Monocytes % % 7.7 Eosinophils % % 3.1 Basophils % % 0.8 Nucleated RBC % (0.0-0.3) % 0.0 Absolute Neutrophils (1.2-6.7) 10^3/uL 4.26 Absolute Lymphocytes (1.2-3.4) 10^3/uL 1.47 Absolute Monocytes (0.1-0.8) 10^3/uL 0.50 Absolute Eosinophils (0.0-0.7) 10^3/uL 0.20 Absolute Basophils (0.0-0.2) 10^3/uL 0.05 Sodium (136-145) mmol/L 146 H Potassium (3.5-5.1) mmol/L 4.2 Chloride (98-107) mmol/L 108 H Carbon Dioxide (21.0-32.0) mmol/L 27.5 Anion Gap (3-11) mmol/L 10.5 BUN (7-18) mg/dL 17 Creatinine (0.55-1.02) mg/dL 1.0 Est GFR (CKD-EPI 2020) (mL/min/1.73m2) 61.75 Glucose (74-106) mg/dL 114 H Calcium (8.5-10.1) mg/dL 10.2 H Magnesium (1.8-2.4) mg/dL 2.0 Total Bilirubin (0.2-1.0) mg/dL 0.67 AST (15-37) U/L 27 ALT (14-59) U/L 28 Alkaline Phosphatase (46-116) U/L 77 Troponin I (<or=51) ng/L 5 5 Total Protein (6.4-8.2) g/dL 7.3 Albumin (3.4-5.0) g/dL 3.8 TSH (0.36-3.74) uIU/mL 2.80 Urine Color (Yellow) Urine Clarity (Clear) Urine pH (5-8) Ur Specific [place] (1.005-1.025) Urine Protein (Neg-Trace) mg/dL Urine Ketones (Negative) mg/dL Urine Blood (Negative) Urine Nitrite (Negative) Urine Bilirubin (Negative) Urine Urobilinogen (Up to 0.2) mg/dL Ur Leukocyte Esterase (Negative) Urine Glucose (Negative) mg/dL COVID-19 Source Nasopharynx SARS-CoV-2 (PCR) (Negative) Negative Influenza Type A (PCR) (Negative) Negative Influenza Type B (PCR) (Negative) Negative RSV (PCR) (Negative) Negative Range/Units 04/18/24 15:05 WBC (4.4-10.8) 10^3/uL RBC (3.93-5.22) 10^6/uL Hgb (11.2-15.7) g/dL Hct (36.0-46.0) % MCV (80-95) fL MCH (27.0-33.0) pg MCHC (32.0-36.0) % RDW (11.7-14.6) % Plt Count (130-400) 10^3/uL MPV (8.0-11.0) fL Immature Gran % % Neutrophils % % Lymphocytes % % Monocytes % % Eosinophils % % Basophils % % Nucleated RBC % (0.0-0.3) % Absolute Neutrophils (1.2-6.7) 10^3/uL Absolute Lymphocytes (1.2-3.4) 10^3/uL Absolute Monocytes (0.1-0.8) 10^3/uL Absolute Eosinophils (0.0-0.7) 10^3/uL Absolute Basophils (0.0-0.2) 10^3/uL Sodium (136-145) mmol/L Potassium (3.5-5.1) mmol/L Chloride (98-107) mmol/L Carbon Dioxide (21.0-32.0) mmol/L Anion Gap (3-11) mmol/L BUN (7-18) mg/dL Creatinine (0.55-1.02) mg/dL Est GFR (CKD-EPI 2020) (mL/min/1.73m2) Glucose (74-106) mg/dL Calcium (8.5-10.1) mg/dL Magnesium (1.8-2.4) mg/dL Total Bilirubin (0.2-1.0) mg/dL AST (15-37) U/L ALT (14-59) U/L Alkaline Phosphatase (46-116) U/L Troponin I (<or=51) ng/L Total Protein (6.4-8.2) g/dL Albumin (3.4-5.0) g/dL TSH (0.36-3.74) uIU/mL Urine Color (Yellow) Yellow Urine Clarity (Clear) Clear Urine pH (5-8) 7.0 Ur Specific [place] (1.005-1.025) 1.015 Urine Protein (Neg-Trace) mg/dL Negative Urine Ketones (Negative) mg/dL 15 H Urine Blood (Negative) Negative Urine Nitrite (Negative) Negative Urine Bilirubin (Negative) Negative Urine Urobilinogen (Up to 0.2) mg/dL 0.2 Ur Leukocyte Esterase (Negative) Trace H Urine Glucose (Negative) mg/dL Negative COVID-19 Source SARS-CoV-2 (PCR) (Negative) Influenza Type A (PCR) (Negative) Influenza Type B (PCR) (Negative) RSV (PCR) (Negative) Quality:SDOH Health Related Social Needs: No Data to Display PFSH All Active Problems Facial skin lesion (Acute) Pharyngoesophageal dysphagia (Acute) Chronic left maxillary sinusitis (Acute) Nail dystrophy (Acute) Mild cognitive impairment (Acute) Urgency incontinence (Acute) Right flank pain (Acute) Status post cataract extraction and insertion of intraocular lens of left eye (Chronic 11/06/18) Status post cataract extraction and insertion of intraocular lens of right eye (Chronic 10/23/18) Asthma (Chronic) Hypertension (Chronic) Insulin dependent diabetes mellitus (Chronic) Medical History Intradermal nevus of face H/O excision of epidermal inclusion cyst Lesion of face (~05/2023) B/L cheeks and forehead Hx of adenomatous colonic polyps Edema Raynaud phenomenon Dysphagia, pharyngeal phase Urinary incontinence Hypertension Per pt. states her BP has been running low so they cut down her lisinopril dose Asthma, intermittent GERD (gastroesophageal reflux disease) Intermittent palpitations Pt. states this is not current Trigger finger of left thumb Hearing loss in right ear Depression with anxiety Alcohol abuse Osteoporosis Back pain thoracic region Strain of thoracic back region Pain in joints of left hand Pain in joints of right hand Trigger finger, right index finger Cataract bilateral Diabetes mellitus type 1 pump in situ Surgical History History of carpal tunnel release 12/26/1987 (complicated by median nerve) left middle finger trigger release History of surgical removal of pilonidal cyst History of section x2 ( and ) Family History Sister Personal history of malignant neoplasm of liver cancer Mother No problems noted. Father No problems noted. Sister No problems noted. Social History Smoking/Tobacco Use Status: Former Tobacco Use Quit Date: 06/27/77 Smoking risk assessment performed?: Yes Alcohol Intake: former Drug use: Never Substance use type: does not use Details: alcohol use: 5 years ago Household members: spouse and other Details: lloyd. 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
--- NOTE | 2024-04-18 13:30 | RT.EKG_ITS ---
APPROVED REPORT Exam: Resting ECG Reason for Exam: baseline/screening Patient Location: E HR:63 bpm ECG Measurements Heart Rate 63 AXIS VT 125 P 30 QRSd 83 QRS -14 QT 408 T 31 QTc 418 Conclusion Sinus rhythm...normal P axis, V-rate 60- 99 Narrow complex normal sinus rhythm at a rate of 63. Left axis deviation no signs of LVH. Intervals within normal limits. No ST segment abnormalities. T wave version in lead III. Compared to prior d ated last year T wave inversion in lead III is persistent. No acute injury pattern.
--- NOTE | 2024-04-18 13:30 | DI.CT_ITS ---
Exam(s) CT BRAIN NECK CTA EXAM: CT BRAIN NECK CTA CLINICAL HISTORY: reports visual changes since Tuesday. TECHNIQUE: Imaging Protocol: Axial CT angiography was performed with multi-slice acquisition and mu lti-planar and/or 3D reconstructions. CONTRAST MATERIAL: Intravenous: Omnipaque 350 contrast volume:100 mL COMPARISON: CT HEAD WITHOUT CONTRAST from 05/30/[address] NECK W from 08/05/[address] HEAD SINUS WO from 09/21/2022 FINDINGS: CT Head W/O and W: Ventricles and Extra axial spaces: Normal in size and morphology for the patient's age. Hemorrhage: None. Cerebral parenchyma: No evidence of an acute territorial infarct is seen. No mass effect is identifi ed. Midline shift: None. Brainstem/Cerebellum: Normal. Calvarium: Normal. Visualized Paranasal sinuses/Mastoids: There is again seen complete opacification of the left maxilla ry sinus. The remaining visualized paranasal sinuses and mastoid air cells are clear. Soft Tissues: Unremarkable. Enhancement: Unremarkable. CTA Neck W: Common Carotid: Right: No dissection, occlusion or significant stenosis. Left: No dissection, occlusion or significant stenosis. External Carotid: Right: No occlusion or significant stenosis. Left: No occlusion or significant stenosis. Internal Carotid: Right: No dissection, occlusion or significant stenosis. Left: No dissection, occlusion or significant stenosis. Vertebral Artery: Right: No dissection, occlusion or significant stenosis. Left: No dissection, occlusion or significant stenosis. Lung Apices: No acute infiltrates or apical pneumothorax. Bones: Within normal limits for the patient's age. Soft Tissues: Normal. Thyroid gland: Unremarkable. CTA Brain W: Internal Carotid Arteries: Mild atherosclerotic calcification is seen in the internal carotid arterie s. No aneurysm, occlusion or significant stenosis results. Anterior Cerebral Arteries: Right: No aneurysm, occlusion or significant stenosis. Left: No aneurysm, occlusion or significant stenosis. Middle Cerebral Arteries: Right: No aneurysm, occlusion or significant stenosis. Left: No aneurysm, occlusion or significant stenosis. Posterior Cerebral Arteries: Right: No aneurysm, occlusion or significant stenosis. Left: No aneurysm, occlusion or significant stenosis. Vertebral Arteries: Right: No aneurysm, occlusion or significant stenosis. Left: No aneurysm, occlusion or significant stenosis. Basilar Artery: No aneurysm, occlusion or significant stenosis. IMPRESSION: 1. No large vessel occlusion or significant stenosis on the CT angiography of the head. 2. No acute intracranial process. 3. No occlusion or significant stenosis on the CT angiography of the neck. RADIATION DOSE DELIVERED: 2,052.73mGy.cm Total DLP DATA REPOSITORY: All CT scans at this facility are submitted to the National Radiology Data Registry (NRDR) Dose Index Registry (DIR) with the [employer] ([employer]). RADIATION OPTIMIZATION: All CT scans at this facility use at least one of these dose optimization te chniques: automated exposure control; mA and/or kV adjustment per patient size (includes targeted exa ms where dose is matched to clinical indication); or iterative reconstruction.
--- NOTE | 2024-04-18 13:30 | DI.RAD_ITS ---
Exam(s) XR CHEST 2V PA LATERAL EXAM: XR CHEST 2V PA LATERAL CLINICAL HISTORY: shortness of breath TECHNIQUE: 2D digital imaging was performed of the chest. Two images were obtained. PA and lateral views were obtained. COMPARISON: CR,XR XR CHEST 2V PA LATERAL from 09/21/2022 FINDINGS: MEDIASTINUM: Normal. HEART: Normal. PULMONARY VASCULATURE: Normal. LUNGS: Clear. PLEURAL SPACE: No pleural effusion or pneumothorax. BONE:Within normal limits for the patient's age. Stable old T10 compression deformity. OTHER FINDINGS:Normal. IMPRESSION: No acute pulmonary findings. DATA REPOSITORY: RADIATION DOSE DELIVERED:
[2024-04-18 13:45] LABS: Abs Immature Grans 0.02 10^3/uL (0.0-0.06); Absolute Basophil Count 0.05 10^3/uL (0.0-0.2); Absolute Lymphocyte Count 1.47 10^3/uL (1.2-3.4); Absolute Neutrophil Count 4.26 10^3/uL (1.2-6.7); Basophils % 0.8 %; Eosinophils % 3.1 %; HGB 13.3 g/dL (11.2-15.7); Immature Grans % 0.3 %; Lymphocytes % 22.6 %; MCH 31.1 pg (27.0-33.0); MCHC 33.3 % (32.0-36.0); MCV 94 fL (80-95); MPV 10.1 fL (8.0-11.0); Monocytes % 7.7 %; Neutrophils % 65.5 %; Platelet Count 277 10^3/uL (130-400); RBC 4.27 10^6/uL (3.93-5.22); RDW 13.5 % (11.7-14.6)
[2024-04-18] MEDS: Ketorolac 15 MG/ML VIAL IVP (13:58)
[2024-04-18] MEDS: Dexamethasone 4 MG/ML VIAL 6 MG IVP (13:59)
[2024-04-18] MEDS: Metoclopramide 10 MG/2 ML VIAL 5 MG IVP (13:59)
[2024-04-18] MEDS: diphenhydrAMINE 50 MG/ML VIAL 25 MG IVP (13:59)
[2024-04-18] MEDS: ACETAMINOPHEN 1,000 MG/100 ML BAG 400 MG IVPB (14:00)
[2024-04-18 14:14] LABS: ALT 28 U/L (14-59); AST 27 U/L (15-37); Albumin 3.8 g/dL (3.4-5.0); Alkaline Phosphatase 77 U/L (46-116); Anion Gap 10.5 mmol/L (3-11); BUN 17 mg/dL (7-18); Bilirubin, Total 0.67 mg/dL (0.2-1.0); CO2 27.5 mmol/L (21.0-32.0); Calcium 10.2 mg/dL (8.5-10.1); Chloride 108 mmol/L (98-107); Estimated GFR 61.75 (mL/min/1.73m2); Glucose 114 mg/dL (74-106); Potassium 4.2 mmol/L (3.5-5.1); Sodium 146 mmol/L (136-145); Total Protein 7.3 g/dL (6.4-8.2); Troponin I 5 ng/L (<or=51)
[2024-04-18 14:36] LABS: COVID-19 PCR Negative (Negative); Influenza A PCR Negative (Negative); Influenza B PCR Negative (Negative); RSV PCR Negative (Negative); Source Nasopharynx
[2024-04-18 15:10] LABS: Bilirubin Negative (Negative); Blood Negative (Negative); Clarity Clear (Clear); Glucose Negative (Negative); Ketones 15 mg/dL (Negative); Leukocyte Esterase Trace (Negative); Nitrite Negative (Negative); Specific Gravity 1.015 (1.005-1.025); Urobilinogen 0.2 mg/dL (Up to 0.2)
[2024-04-18 15:18] LABS: Troponin I 5 ng/L (<or=51)
[2024-04-18] MEDS: Omnipaque 350 MG/ML 100 ML BTL IJ (15:44)
[2024-04-18] MEDS: Normal Saline - Diluent 50 ML VIAL IJ (15:47)
[2024-04-18 15:54] LABS: Bacteria Negative HPF (Negative); C & S Indicated? No; Casts Negative LPF (Negative); Crystals Few Amorphous HPF (Negative); Epithelial Cells Rare HPF (Negative); Mucus Negative (Negative); RBC Negative HPF (0-2); WBC 0-2 HPF (0-5)
--- NOTE | 2024-04-18 16:17 | ED.PROG_ITS ---
Date of service: 04/18/24 Time of Service: 16:17 Medical Decision Making Care assumed from provider (PUNEET Klein) Please see their initial HPI, PE, and documentation. Discussed patient details and case and pending workup and disposition. Patient is hemodynamically stable, and alert and oriented. At the time of signout awaiting CTA neck and brain and chest x-ray. Patient thus far has had a negative workup. Patient has received a migraine cocktail. CTA brain and neck is within normal limits. Please see official report. On patient reevaluation she is alert and oriented, she is still complaining of headache she describes occipital in nature I am questioning occipital migraine. Will order a lidocaine patch for the back of her neck. This text was generated using [employer] system, please disregard any oddities of phrase or misspellings. Medical Records Medical records reviewed: Yes I reviewed the patient's medical records. Lab Data Lab results reviewed: Yes I reviewed the patient's lab results. Labs: Laboratory Tests Range/Units 04/18/24 04/18/24 04/18/24 13:35 13:44 14:50 WBC (4.4-10.8) 10^3/uL 6.50 RBC (3.93-5.22) 10^6/uL 4.27 Hgb (11.2-15.7) g/dL 13.3 Hct (36.0-46.0) % 40.0 MCV (80-95) fL 94 MCH (27.0-33.0) pg 31.1 MCHC (32.0-36.0) % 33.3 RDW (11.7-14.6) % 13.5 Plt Count (130-400) 10^3/uL 277 MPV (8.0-11.0) fL 10.1 Immature Gran % % 0.3 Neutrophils % % 65.5 Lymphocytes % % 22.6 Monocytes % % 7.7 Eosinophils % % 3.1 Basophils % % 0.8 Nucleated RBC % (0.0-0.3) % 0.0 Absolute Neutrophils (1.2-6.7) 10^3/uL 4.26 Absolute Lymphocytes (1.2-3.4) 10^3/uL 1.47 Absolute Monocytes (0.1-0.8) 10^3/uL 0.50 Absolute Eosinophils (0.0-0.7) 10^3/uL 0.20 Absolute Basophils (0.0-0.2) 10^3/uL 0.05 Sodium (136-145) mmol/L 146 H Potassium (3.5-5.1) mmol/L 4.2 Chloride (98-107) mmol/L 108 H Carbon Dioxide (21.0-32.0) mmol/L 27.5 Anion Gap (3-11) mmol/L 10.5 BUN (7-18) mg/dL 17 Creatinine (0.55-1.02) mg/dL 1.0 Est GFR (CKD-EPI 2020) (mL/min/1.73m2) 61.75 Glucose (74-106) mg/dL 114 H Calcium (8.5-10.1) mg/dL 10.2 H Magnesium (1.8-2.4) mg/dL 2.0 Total Bilirubin (0.2-1.0) mg/dL 0.67 AST (15-37) U/L 27 ALT (14-59) U/L 28 Alkaline Phosphatase (46-116) U/L 77 Troponin I (<or=51) ng/L 5 5 Total Protein (6.4-8.2) g/dL 7.3 Albumin (3.4-5.0) g/dL 3.8 TSH (0.36-3.74) uIU/mL 2.80 Urine Color (Yellow) Urine Clarity (Clear) Urine pH (5-8) Ur Specific [employer] (1.005-1.025) Urine Protein (Neg-Trace) mg/dL Urine Ketones (Negative) mg/dL Urine Blood (Negative) Urine Nitrite (Negative) Urine Bilirubin (Negative) Urine Urobilinogen (Up to 0.2) mg/dL Ur Leukocyte Esterase (Negative) Urine RBC (0-2) HPF Urine WBC (0-5) HPF Ur Epithelial Cells (Negative) HPF Urine Crystals (Negative) HPF Urine Bacteria (Negative) HPF Urine Casts (Negative) LPF Urine Mucus (Negative) Ur Culture Indicated? Urine Glucose (Negative) mg/dL COVID-19 Source Nasopharynx SARS-CoV-2 (PCR) (Negative) Negative Influenza Type A (PCR) (Negative) Negative Influenza Type B (PCR) (Negative) Negative RSV (PCR) (Negative) Negative Range/Units 04/18/24 15:05 WBC (4.4-10.8) 10^3/uL RBC (3.93-5.22) 10^6/uL Hgb (11.2-15.7) g/dL Hct (36.0-46.0) % MCV (80-95) fL MCH (27.0-33.0) pg MCHC (32.0-36.0) % RDW (11.7-14.6) % Plt Count (130-400) 10^3/uL MPV (8.0-11.0) fL Immature Gran % % Neutrophils % % Lymphocytes % % Monocytes % % Eosinophils % % Basophils % % Nucleated RBC % (0.0-0.3) % Absolute Neutrophils (1.2-6.7) 10^3/uL Absolute Lymphocytes (1.2-3.4) 10^3/uL Absolute Monocytes (0.1-0.8) 10^3/uL Absolute Eosinophils (0.0-0.7) 10^3/uL Absolute Basophils (0.0-0.2) 10^3/uL Sodium (136-145) mmol/L Potassium (3.5-5.1) mmol/L Chloride (98-107) mmol/L Carbon Dioxide (21.0-32.0) mmol/L Anion Gap (3-11) mmol/L BUN (7-18) mg/dL Creatinine (0.55-1.02) mg/dL Est GFR (CKD-EPI 2020) (mL/min/1.73m2) Glucose (74-106) mg/dL Calcium (8.5-10.1) mg/dL Magnesium (1.8-2.4) mg/dL Total Bilirubin (0.2-1.0) mg/dL AST (15-37) U/L ALT (14-59) U/L Alkaline Phosphatase (46-116) U/L Troponin I (<or=51) ng/L Total Protein (6.4-8.2) g/dL Albumin (3.4-5.0) g/dL TSH (0.36-3.74) uIU/mL Urine Color (Yellow) Yellow Urine Clarity (Clear) Clear Urine pH (5-8) 7.0 Ur Specific [employer] (1.005-1.025) 1.015 Urine Protein (Neg-Trace) mg/dL Negative Urine Ketones (Negative) mg/dL 15 H Urine Blood (Negative) Negative Urine Nitrite (Negative) Negative Urine Bilirubin (Negative) Negative Urine Urobilinogen (Up to 0.2) mg/dL 0.2 Ur Leukocyte Esterase (Negative) Trace H Urine RBC (0-2) HPF Negative Urine WBC (0-5) HPF 0-2 Ur Epithelial Cells (Negative) HPF Rare Urine Crystals (Negative) HPF Few Amorphous Urine Bacteria (Negative) HPF Negative Urine Casts (Negative) LPF Negative Urine Mucus (Negative) Negative Ur Culture Indicated? No Urine Glucose (Negative) mg/dL Negative COVID-19 Source SARS-CoV-2 (PCR) (Negative) Influenza Type A (PCR) (Negative) Influenza Type B (PCR) (Negative) RSV (PCR) (Negative) Quality:SDOH Health Related Social Needs: No Data to Display Sign Out Sign Out Data: Sign Out Comment: Likely viral syndrome, imaging pending at sign-out for mild SOB and subjective blurred/double vision- given cocktail for migraine for trial of relief Last updated by Mikhail Ornelas PA at 04/18/24 15:44 Discharge Plan Disposition Patient Disposition: Home Condition: Stable Discharge Details Clinical Impression: Headache Primary Care Provider: Corby Yancey ED Provider: Kavita Parmar Home Meds and New Rx's Prescriptions: No Action glucosamine sulfate 2KCl [Glucosamine Relief] 1,000 mg tablet 1,000 mg PO DAILY Rx Instructions: administer with meals lisinopril 10 mg tablet 10 mg PO DAILY insulin lispro [Humalog U-100 Insulin] 100 unit/mL solution 20 - 25 unit subcut DAILY acetaminophen [Tylenol Extra Strength] 500 mg tablet 1,000 mg PO QAM atorvastatin 20 mg tablet 20 mg PO HS cholecalciferol (vitamin D3) 50 mcg (2,000 unit) capsule 2,000 unit PO HS Patient Comments: TAKE ONE CAPSULE BY MOUTH EVERY DAY dexlansoprazole [Dexilant] 30 mg capsule,biphase delayed releas 30 mg PO HS multivitamin [Multiple Vitamins] Tablet 1 tab PO HS albuterol sulfate [ProAir HFA] 90 mcg/actuation Hfa Aerosol Inhaler 1 - 2 inh Inhalation Q4H PRN magnesium 250 mg Tablet 250 mg PO HS ibuprofen 200 mg Tablet 600 mg PO HS glucagon HCl [Glucagon (HCl) Emergency Kit] 1 mg Recon Soln 1 mg SUBCUT Q20M PRN Patient Comments: pt. reports 6 months, pt. reports coming to hospital for her DM, in the spring Rx Instructions: until target blood sugar attained Discharge Instructions Instructions: Home Headache Remedies, Headache, Adult ED Additional Instructions: You have had a extensive negative workup today including CT head and neck and chest x-ray. No evidence of infection, heart attack. Please increase oral fluids over the next few days. Follow up with primary care provider in 3-5 days. Return to ED sooner if any worsening headache, confusion, weakness on one side of your body, visual disturbances or concerns. Please take Tylenol or Ibuprofen with food every 4-6 hours as needed for pain and swelling. Referrals: Corby Yancey MD [Primary Care Provider] - 3 days Discharge Data Discharge Date/Time-TO BE ENTERED AT DEPARTURE: 04/18/24 16:55
[2024-04-18] MEDS: Lidocaine 5% Patch 1 PATCH TP (16:45)
[2024-04-19 10:12] LABS: Lyme Ab w Rflx to Lyme Confirm Negative (Negative)
[2024-04-20 19:50] LABS: Anaplasma phagocytophilum Negative (Negative); B. miyamotoi PCR Negative (Negative); Babesia divergens/MO-1 Negative (Negative); Babesia duncani Negative (Negative); Babesia microti Negative (Negative); Ehrlichia chaffeensis Negative (Negative); Ehrlichia ewingii/canis Negative (Negative); Ehrlichia muris eauclairensis Negative (Negative)
== END 2024-04-18 16:55 | disposition home or self-care (01) ==
PROVIDERS: Physician Assistant; Emergency Provider Registered Nurse Emergency; PCP Family Medicine
DX: R51.9 Headache, unspecified (principal); R11.0 Nausea; H53.2 Diplopia; I10 Essential (primary) hypertension; E10.9 Type 1 diabetes mellitus without complications; Z79.4 Long term (current) use of insulin; Z87.891 Personal history of nicotine dependence
CPT/HCPCS: 00123; 70496; 70498; 80053; 87637; 87798; 93005; 96374; 96375; 99285; 71046; 81003; 81015; 83735; 84443; 84484; 85025; 86618; 93010; J0131; J1100; J1200; J1885; J2765; J3490

== ENCOUNTER 2024-05-30 14:03 | Outpatient (CLI) | payer MEDICARE, SELFPAY ==
[2024-05-30 14:48] LABS: Hemoglobin A1C 6.9 % (<5.7)
[2024-05-30 14:56] LABS: Anion Gap 9.4 mmol/L (3-11); BUN 20 mg/dL (7-18); CO2 28.6 mmol/L (21.0-32.0); Calcium 9.7 mg/dL (8.5-10.1); Calculated LDL 34 mg/dL (<100); Chloride 106 mmol/L (98-107); Cholesterol 139 mg/dL (<200); Estimated GFR 61.75 (mL/min/1.73m2); Glucose 175 mg/dL (74-106); HDL Cholesterol 76 mg/dL (40-60); Potassium 4.2 mmol/L (3.5-5.1); Sodium 144 mmol/L (136-145); Triglyceride 146 mg/dL (<150)
[2024-05-30 16:18] LABS: COMMENT (LAB VIEW ONLY) 42.03 mg/dL; Microalb ug/mg Crea 3.3 ug/mg Cr
== END 2024-05-30 14:04 | disposition home or self-care (01) ==
LOC: LBO 14:03
PROVIDERS: PCP Family Medicine; Visit Provider Student in an Organized Health Care Education/Training Program
DX: E10.649 Type 1 diabetes mellitus with hypoglycemia without coma (principal); M81.0 Age-related osteoporosis without current pathological fracture; E55.9 Vitamin D deficiency, unspecified; E21.0 Primary hyperparathyroidism
CPT/HCPCS: 36415; 80048; 80061; 82043; 82570; 83036

== ENCOUNTER 2024-07-26 02:59 | Outpatient (CLI) | payer MEDICARE, SELFPAY ==
--- NOTE | 2024-07-26 | DI.DEXA_ITS ---
Exam(s) XR DEXA BONE DENSITY W/WO JYOTHI EXAM: XR DEXA BONE DENSITY CLINICAL HISTORY: Osteoporosis surveillance on treatment, M81.0, with radial wrist, fx TECHNIQUE: Routine DEXA evaluation of the lumbar spine, hip, or forearm. COMPARISON: CR XR THORACIC SPINE COMPLETE from 12/09/2022 FINDINGS: Performed on a Hologic unit. Lateral image: T9 compression fracture noted. This was evident on prior plain radiographs of 023. Lumbar Spine total T-score: -3.5. This is osteoporosis range. Hip total T-score:Minus 2.2 Independent reading at the level of the femoral neck yields T-score of -2.7. This is osteoporosis r qasim. IMPRESSION: Bone mineral density measures in the osteoporosis range. Fracture risk is high. Note: Any spine fracture indicates 5x risk for subsequent spine fracture and 2x risk for subsequent h ip fracture. World Health Organization criteria for BMD interpretation classify patients: Normal...... T- Score at or above -1.0 Osteopenic... T- Score between -1.0 and -2.5 Osteoporosis... T-Score at or below -2.5
== END 2024-07-26 03:19 ==
PROVIDERS: PCP Family Medicine; Visit Provider Student in an Organized Health Care Education/Training Program
DX: M81.0 Age-related osteoporosis without current pathological fracture (principal)
CPT/HCPCS: 77080

== ENCOUNTER 2024-07-27 11:54 | Outpatient (REF) | payer MEDICARE, SELFPAY ==
--- NOTE | 2024-07-27 10:30 | PAPFT_PTH ---
PATIENT: Ebonie Sol LOC: [facility] U#:[id number] AGE/SX: 69/F ROOM: RE07/27/[address]: Hollie Lehman : 1955 BED: DIS: 07/27/2024 SPEC #: [id number] RECD: 07/27/24 12:21 STATUS: YULISA REZachery #: [id number] VIANNEY: 07/27/24 10:[address]: Hollie Lehman DEPT: [facility] Cytology RECD BY: Lana Grissom ENTERED: 07/27/24 12:21 SP TYPE: PAPFT OTHR DR: Corby Yancey Tissues: 1 - CX/ENDOCX FOR PAP SMEARS Procedures: PAP THIN PREP/[facility] Screening HPV DNA PROBE Comments: [id number] (HPV 16 & 18/45)
== END 2024-07-27 11:55 | disposition home or self-care (01) ==
LOC: LBN 11:54
PROVIDERS: PCP Family Medicine; Visit Provider Obstetrics & Gynecology Gynecology
DX: Z11.51 Encounter for screening for human papillomavirus (HPV) (principal); Z01.419 Encounter for gynecological examination (general) (routine) without abnormal findings
CPT/HCPCS: 88142; 87624

== ENCOUNTER 2024-08-28 02:30 | Outpatient (CLI) | payer MEDICARE, SELFPAY | END 2024-08-28 02:50 | LOC: DI 02:30 | PROVIDERS: PCP Family Medicine; Visit Provider Obstetrics & Gynecology Gynecology | DX: Z12.31 Encounter for screening mammogram for malignant neoplasm of breast (principal); R92.323 Mammographic fibroglandular density, bilateral breasts | CPT/HCPCS: 77063; 77067 ==

== ENCOUNTER 2025-01-21 14:46 | Outpatient (REF) | payer MEDICARE, SELFPAY ==
[2025-01-21 16:02] LABS: Glucose Negative (Negative)
[2025-01-21 16:58] LABS: Hemoglobin A1C 6.8 % (<5.7)
[2025-01-21 17:16] LABS: ALT 36 U/L (14-59); AST 28 U/L (15-37); Albumin 3.8 g/dL (3.4-5.0); Alkaline Phosphatase 78 U/L (46-116); Anion Gap 7.7 mmol/L (3-11); BUN 28 mg/dL (7-18); Bilirubin, Total 0.6 mg/dL (0.2-1.0); CO2 28.3 mmol/L (21.0-32.0); Calcium 9.4 mg/dL (8.5-10.1); Chloride 106 mmol/L (98-107); Estimated GFR 94.73 (mL/min/1.73m2); Glucose 157 mg/dL (74-106); Potassium 4.4 mmol/L (3.5-5.1); Sodium 142 mmol/L (136-145); TSH (W/Ref FT4) 1.96 uIU/mL (0.36-3.74); Total Protein 6.8 g/dL (6.4-8.2); Vitamin B12 722 pg/mL (193-986)
[2025-01-21 17:19] LABS: Folate > 20.0 ng/mL (8.6-20.0)
== END 2025-01-21 14:47 | disposition home or self-care (01) ==
LOC: NCHCN 14:46
PROVIDERS: PCP Family Medicine; Visit Provider Family Medicine
DX: E10.9 Type 1 diabetes mellitus without complications (principal); R41.3 Other amnesia
CPT/HCPCS: 80053; 81003; 82607; 82746; 83036; 84443

== ENCOUNTER 2025-04-18 03:43 | Outpatient (CLI) | payer MEDICARE, SELFPAY ==
--- NOTE | 2025-04-18 09:55 | DI.MRI_ITS ---
Exam(s) MR LUMBAR SPINE WO EXAM: MR LUMBAR SPINE WO CLINICAL HISTORY: SCIATICA RT SIDE NERVE PAIN M54.31. TECHNIQUE: Multiplanar multisequence MRI of the Lumbar spine was performed. COMPARISON: MR MRI - LUMBAR SPINE WO CONTRAST from 08/16/2013 CR XR LUMBAR SPINE AP, LAT from 12/09/2022 CR XR DEXA BONE DENSITY W/WO JYOTHI from 07/26/2024 FINDINGS: Bones: The last intervertebral disc space is designated the L5/S1 level for the numbering purpose of this examination. The vertebral body heights are well maintained. Alignment is satisfactory. Mild degenerative endplate signal changes are seen at T12-L1. Cord: It is of normal size and signal intensity. T12-L1: No disc herniations or bulges are present. No central spinal canal or neural foraminal stenosis. L1-2: No disc herniations or bulges are present. No central spinal canal or neural foraminal stenosis. L2-3: No disc herniations or bulges are present. No central spinal canal or neural foraminal stenosis. L3-4: No disc herniations or bulges are present. There are degenerative changes of the facets and mild hypertrophy of the ligamentum flavum. There is mild narrowing of the central spinal canal.There is mild narrowing of the neural foramen bilaterally. L4-5: There is a diffuse disc bulge. There are degenerative changes of the facets and hypertrophy of the ligamentum flavum. The findings result in moderate narrowing of the central spinal canal. There is mild right and [id number] left neural foraminal stenosis. L5-S1: There are degenerative changes of the facets and hypertrophy of the ligamentum flavum. There is a diffuse disc bulge. There is axxu-ep-[id number] narrowing of the central spinal canal. No neural foraminal stenosis is present. Soft tissues: The visualized SI joints and sacrum are well maintained. The paraspinal soft tissues are unremarkable. IMPRESSION: 1. Multilevel degenerative changes in the lumbar spine. The findings are most marked at L4-L5 where there is moderate central spinal canal stenosis and bilateral neural foraminal stenosis. 2. Degenerative changes are also seen at L3-4 and L5-S1 as described above. DATA REPOSITORY:
== END 2025-04-18 04:03 ==
LOC: DI 03:43
PROVIDERS: PCP Family Medicine; Visit Provider Family Medicine
DX: M54.31 Sciatica, right side (principal); M51.362 Other intervertebral disc degeneration, lumbar region with discogenic back pain and lower extremity pain
CPT/HCPCS: 72148